=== PATIENT | female | born 1950 | race Asian ===

== ENCOUNTER 2016-08-02 10:25 | Inpatient (IN) | payer MEDICARE, OTHER ==
[~2016-08-02] VITALS: Ht 172.7 cm; Wt 74.1 kg
[~2016-08-02 10:25] MED LIST: APR50 PO; CALC667T2 PO; CEPH-443 PO; CHOL400T10 PO; CLON-379 PO; FOLI-49 PO; INSU100I14 SC; LEVEM SC; METO-429 PO
[2016-08-02] MEDS ORDERED: morphine 2 MG INJ IV STA (10:28)
[2016-08-02] MEDS ORDERED: SOD CHLORIDE 0.9% 1,000 ML IV STA (10:28)
[2016-08-02] MEDS ORDERED: ONDANSETRON 4 MG INJ IV STA (10:28)
--- NOTE | 2016-08-02 11:14 | RADRPT ---
PROCEDURE: XR Chest. CLINICAL INDICATION: Nausea. Abdominal pain. TECHNIQUE: Single frontal chest x-ray. COMPARISON: Chest x-ray dated 07/02/2016 FINDINGS: The lungs are clear. No focal opacification is seen. Subtle patchy density seen in the retrocardiac left lung base at the time of the previous chest x-ray is now resolved. The cardiomediastinal silho uette is unremarkable. The osseous structures are unremarkable. Dual-chamber left chest pacemaker is in good position without evidence for pneumothorax. IMPRESSION: 1. There is no acute cardiopulmonary process. 2. Stable dual-chamber left chest pacemaker without pneumothorax. RPTAT: HMJB .Amaury Melton MD, Date Time Electronically viewed and signed by .Amaury Melton MD, on 08/02/2016 11:14 .B/
[2016-08-02 11:44] LABS: EOSINOPHILS % 0.1 % (0.0-7.0); HEMATOCRIT 21.4 % (37.0-47.0); HEMOGLOBIN 7.1 g/dl (12.0-16.0); LYMPHOCYTES # 0.7 10^3/ul (0.8-2.9); LYMPHOCYTES % 8.4 % (15.0-51.0); MEAN CORPUSCULAR HGB CONC 33.1 g/dl (32.0-37.0); MEAN CORPUSCULAR VOLUME 93.6 fl (82.0-101.0); MONOCYTE # 0.4 10^3/ul (0.3-0.9); MONOCYTES % 4.6 % (0.0-11.0); NEUTROPHIL # 7.5 10^3/ul (1.6-7.5); NEUTROPHILS % 86.9 % (39.0-77.0); PLATELET COUNT 177 10^3/UL (140-440); RED BLOOD COUNT 2.29 10^6/ul (4.20-5.40); RED CELL DISTRIBUTION WIDTH 15.5 % (11.5-14.5); UNCORRECTED WBC 8.7 10^3/ul (4.8-10.8); WHITE BLOOD COUNT 8.7 10^3/ul (4.8-10.8)
[2016-08-02 11:49] LABS: CONDITION 1; LH ANALYZER COMMENTS 1
[2016-08-02 11:55] LABS: ALBUMIN 3.9 g/dl (3.3-4.9); POTASSIUM 4.4 mmol/L (3.5-5.1)
[2016-08-02 11:57] LABS: BILIRUBIN,INDIRECT 0.1 mg/dl (0-1.1); BILIRUBIN,TOTAL 0.1 mg/dl (0.2-1.3); CREATININE 5.21 mg/dl (0.44-1.00)
[2016-08-02 11:58] LABS: ALBUMIN/GLOBULIN RATIO 1.02; CALCIUM 8.9 mg/dl (8.4-10.2); TOTAL PROTEIN 7.7 g/dl (6.1-8.1)
[2016-08-02 11:59] LABS: INR 1.05; PROTIME 13.7 Sec (12.2-14.2); PT RATIO 1.1
[2016-08-02 12:00] LABS: PARTIAL THROMBOPLASTIN TIME 34.8 Sec (25.0-35.0)
[2016-08-02] MEDS ORDERED: PANTOPRAZOLE 40 MG INJ IV ONE (12:00)
[2016-08-02 12:09] LABS: TROPONIN-I 0.013 ng/ml (0.00-0.12)
--- NOTE | 2016-08-02 16:23 | ERA ---
ER Documentation Chief Complaint Date/Time DATE: 08/02/16 TIME: 16:04 Chief Complaint BROUGHT IN VIA EMS FROM DIALYSIS DUE TO NAUSEA AND VOMITING HPI This 66-year-old female came emergency room after dialysis for her nausea and vomiting. She denies any specific abdominal pain. States that the vomit has been back in color. Denies coffee grounds. Also states that she's been having black bowel movements. Denies any other history of a GI bleed. Denies chest pain shortness of breath fever chills. Does have lightheadedness and slight generalized weaknes. ROS All systems reviewed and are negative except as per history of present illness. Medications Home Meds Reported Medications Metoprolol Tartrate* (Lopressor*) 50 Mg Tab, 50 MG PO BID, #60 TAB 07/02/16 Insulin Detemir* (Levemir*) 100 U/Ml Vial, 18 UNIT SC HS, VIAL 10/24/14 Cholecalciferol* (Vitamin D*) 400 Unit Tablet, 400 UNIT PO DAILY, TAB 09/23/14 Insulin Lispro (Humalog) 100 U/Ml Insuln.pen, 5 UNIT SC WITH MEALS, EA 09/23/14 Folic Acid* (Folic Acid*) 1 Mg Tablet, 1 MG PO DAILY, TAB 05/19/14 Calcium Acetate* (Phoslo*) 667 Mg Tablet, 2001 MG PO TID, TAB 05/19/14 Clonidine Hcl* (Clonidine Hcl*) 0.1 Mg Tab, 0.1 MG PO TID, TAB 05/19/14 Hydralazine Hcl* (Hydralazine Hcl*) 50 Mg Tab, 75 MG PO TID, TAB 05/19/14 Discontinued Scripts Cephalexin* (Keflex*) 500 Mg Capsule, 500 MG PO TID, #21 CAP Prov:SALAZAR CALIX MD 07/06/16 Allergies Allergies: Coded Allergies: No Known Allergy (Unverified , 08/02/16) PMhx/Soc History of Surgery: Yes (Ovarian Cancer Tumor Removal Sep 2009,Right AV Fistula 2012, [id number] ) Anesthesia Reaction: No Hx Neurological Disorder: No Hx Respiratory Disorders: No Hx Cardiac Disorders: Yes (HTN) Hx Psychiatric Problems: No Hx Miscellaneous Medical Probl: Yes (DM ,RENAL FAILURE ) Hx Alcohol Use: No Hx Substance Use: No Hx Tobacco Use: No Smoking Status: Never smoker Physical Exam Vitals Vital Signs Date Time Temp Pulse Resp B/P Pulse Ox O2 Delivery O2 Flow Rate FiO2 08/02/16 15:30 112 18 118/68 100 Nasal Cannula 2.0 08/02/16 14:00 98.0 118 18 120/58 96 Room Air 08/02/16 13:00 122 18 110/59 99 Room Air 08/02/16 10:28 98.2 88 18 136/62 98 Physical Exam Const: [] Head: Atraumatic Eyes: Normal Conjunctiva ENT: Normal External Ears, Nose and Mouth. Neck: Full range of motion..~ No meningismus. Resp: Clear to auscultation bilaterally Cardio: Regular rate and rhythm, no murmurs Abd: Soft, non tender, non distended. Normal bowel sounds Skin: No petechiae or rashes Back: No midline or flank tenderness Ext: No cyanosis, or edema Neur: Awake and alert Psych: Normal Mood and Affect Result Diagram: 08/02/16 1100 08/02/16 1100 Results 24 hrs Laboratory Tests Test 08/02/16 11:00 Activated Partial Thromboplast Time 34.8Sec Alanine Aminotransferase (ALT/SGPT) 29IU/L Albumin 3.9g/dl Albumin/Globulin Ratio 1.02 Alkaline Phosphatase 78IU/L Anion Gap 23 Aspartate Amino Transf (AST/SGOT) 36IU/L Basophils # 0.010^3/ul Basophils % 0.0% Blood Morphology Comment Blood Urea Nitrogen 56mg/dl Calcium Level 8.9mg/dl Carbon Dioxide Level 24mmol/L Chloride Level 96mmol/L Creatinine 5.21mg/dl Direct Bilirubin 0.00mg/dl Eosinophils # 0.010^3/ul Eosinophils % 0.1% Globulin 3.80g/dl Glucose Level 122mg/dl Hematocrit 21.4% Hemoglobin 7.1g/dl INR International Normalized Ratio 1.05 Indirect Bilirubin 0.1mg/dl Lactic Acid Level 3.2mmol/L Lipase 355U/L Lymphocytes # 0.710^3/ul Lymphocytes % 8.4% Mean Corpuscular Hemoglobin 31.0pg Mean Corpuscular Hemoglobin Concent 33.1g/dl Mean Corpuscular Volume 93.6fl Mean Platelet Volume 9.0fl Monocytes # 0.410^3/ul Monocytes % 4.6% Neutrophils # 7.510^3/ul Neutrophils % 86.9% Nucleated Red Blood Cells # 0.010^3/ul Nucleated Red Blood Cells % 0.0/100WBC Platelet Count 50870^3/UL Potassium Level 4.4mmol/L Prothrombin Time 13.7Sec Prothrombin Time Ratio 1.1 Red Blood Count 2.2910^6/ul Red Cell Distribution Width 15.5% Sodium Level 139mmol/L Total Bilirubin 0.1mg/dl Total Protein 7.7g/dl Troponin I 0.013ng/ml White Blood Count 8.710^3/ul Current Medications Medications (Trade) Dose Ordered Sig/Amita Route PRN Reason Start Time Stop Time Status Last Admin Dose Admin Sodium Chloride (NS) 1,000 ml @ 1,000 mls/hr Q1H STAT IV 08/02/16 10:28 08/02/16 11:27 DC 08/02/16 11:07 Morphine Sulfate (morphine) 2 mg ONCE STAT IV 08/02/16 10:28 08/02/16 10:29 DC Ondansetron HCl (Zofran Inj) 4 mg ONCE STAT IV 08/02/16 10:28 08/02/16 10:29 DC 08/02/16 11:08 Pantoprazole (Protonix Iv) 80 mg ONCE ONCE IV 08/02/16 12:00 08/02/16 12:01 DC 08/02/16 12:35 Procedures/MDM 66-year-old acute GI bleed with symptomatic anemia.. Significant low hemoglobin she actually likely be lower with vitamin administration.. Patient be receiving transfusion. No significant abdominal pain or tenderness. She was given a liter of fluid as well as Zofran for nausea. She'll be admitted to be admitted for endoscopic evaluation and management. Spoke with Dr. Moya will be admitting and requested a consult with Dr. Miller. I spoke with Dr. Miller. EKG interpretation: Paced tachycardia rate of 116, no further evaluation possible secondary to paced rhythm cardiac monitor interpretation: Tachycardia without other arrhythmias Chest x-ray interpretation by myself: Pacemaker in place with no acute process, no infiltrate, no pulmonary edema, no widened mediastinum, no fractures Critical care time 34 minutes: This includes treatment of acute symptomatically anemia from acute GI bleed, administration of blood product, careful fluid administration, chart review, visits the patient's bedside to reassess hemodynamic status after blood products and fluid. Discussion with patient admitting doctor and director of revenue Departure Diagnosis: Primary Impression: Acute GI bleeding Additional Impression: Symptomatic anemia Condition: Serious CASPER COHEN DO Aug 02, 2016 16:19
--- NOTE | 2016-08-02 17:10 | QN ---
Documentation Comment [id number] JEFF RAMOS MD Aug 02, 2016 17:10
[2016-08-02] MEDS ORDERED: ACETAMINOPHEN 325 MG TAB PO PRN ×2 (17:30→18:30)
[2016-08-02] MEDS ORDERED: DOCUSATE SODIUM 100 MG CAP PO PRN (17:30)
[2016-08-02] MEDS ORDERED: ACETAMINOPHEN 650 MG SUPP PR PRN (17:30)
[2016-08-02] MEDS ORDERED: NACL 0.9% 3 ML SYG IV SCH (17:30)
[2016-08-02] MEDS ORDERED: ONDANSETRON 4 MG INJ IV PRN ×2 (17:30→18:30)
[2016-08-02 18:30] VITALS: TEMP 99.5
[2016-08-02 19:55] LABS: HEMATOCRIT 41.2 % (37.0-47.0); HEMOGLOBIN 13.9 g/dl (12.0-16.0)
[2016-08-02 20:30] VITALS: Ht 172.7 cm; Wt 74.1 kg
[2016-08-02 20:45] VITALS: BP 130/60; PULSE 117; RESP 19
[2016-08-02] MEDS: METOPROLOL 50 MG TAB PO SCH (21:00)
[2016-08-02] MEDS: DEXTROSE 5%-0.45% NACL 1,000 ML IV SCH (21:11)
[2016-08-02] MEDS ORDERED: ACETAMINOPHEN 500 MG TAB PO ONE (22:00)
--- NOTE | 2016-08-02 22:03 | HP ---
DATE OF ADMISSION: 08/02/2016 HISTORY OF PRESENT ILLNESS: She is a 66-year-old female with history of ESRD, diabetes mellitus, C AD, history of AV fistula placement, history of pacemaker placement, presented with vomiting coffee- ground and also having black stool for 1 day. Patient denies any nausea, no vomiting at this point. Also denies any abdominal pain. Hemoglobin 7.1, potassium 4.4, BUN 56, creatinine 5.21 and patien t is being admitted for further management. Blood pressure in the ER 128/58. PAST MEDICAL HISTORY: ESRD, hypertension, diabetes mellitus, anemia, history of pacemaker placement , a history of CHF. The patient's other history includes a history of sepsis, history of UTI, histo ry of dyslipidemia, history of bacteremia. ALLERGY HISTORY: NEGATIVE. FAMILY HISTORY: Negative. SOCIAL HISTORY: Negative. MEDICATION HISTORY: Patient is on at home patient is on: 1. PhosLo. 2. Vitamin D. 3. Clonidine. 4. Folic acid. 5. Hydralazine. 6. Insulin. 7. Humalog. 8. Metoprolol. REVIEW OF SYSTEMS HEENT: Unremarkable. RESPIRATORY: Unremarkable. CARDIOVASCULAR: Unremarkable. ABDOMEN: As mentioned above. EXTREMITIES: Unremarkable. PHYSICAL EXAMINATION: GENERAL: The patient is awake, alert, pale-looking female. VITAL SIGNS: As mentioned above. HEAD: Atraumatic, normocephalic. Pupils equal, reactive to light. NECK: Supple. No JVD. LUNGS: Clear. CARDIOVASCULAR: S1, S2 are normal. ABDOMEN: Soft, nontender. Bowel sounds present. No palpable mass or hepatosplenomegaly. No guard ing, rebound tenderness. EXTREMITIES: There is no cyanosis, clubbing, or edema. CENTRAL NERVOUS SYSTEM: The patient is awake, alert with no focal deficit. LABORATORY DATA: As mentioned above. Pacemaker in left chest noted. IMPRESSION: 1. Patient has gastrointestinal bleed. 2. End-stage renal disease, hypertension, diabetes mellitus, anemia, history of pacemaker placement . 3. History of dyslipidemia. PLAN: Keep her n.p.o., gentle IV fluids, Protonix, blood transfusion. Patient is currently getting it. The patient will also have a CBC, BMP checked in the morning. Dr. Miller has been of called t o see this patient in consultation. Dictated By: JEFF RAMOS MD BS/NTS Conf#: [id number] [facility]#: [id number]
[2016-08-03] MEDS ORDERED: ACETAMINOPHEN 325 MG TAB PO PRN (01:00)
[2016-08-03] MEDS: PANTOPRAZOLE 40 MG INJ IV SCH (05:08)
[2016-08-03] MEDS: CALCIUM ACETATE 667 MG CAP PO SCH ×3 (07:35→16:50)
[2016-08-03 08:02] LABS: EOSINOPHILS # 0.1 10^3/ul (0.0-0.5); EOSINOPHILS % 0.4 % (0.0-7.0); HEMATOCRIT 25.3 % (37.0-47.0); HEMOGLOBIN 8.6 g/dl (12.0-16.0); LYMPHOCYTES % 5.1 % (15.0-51.0); MEAN CORPUSCULAR HEMOGLOBIN 31.4 pg (29.0-33.0); MEAN CORPUSCULAR HGB CONC 34.1 g/dl (32.0-37.0); MEAN CORPUSCULAR VOLUME 92.2 fl (82.0-101.0); MEAN PLATELET VOLUME 8.2 fl (7.4-10.4); MONOCYTE # 1.8 10^3/ul (0.3-0.9); MONOCYTES % 9.1 % (0.0-11.0); NEUTROPHIL # 16.7 10^3/ul (1.6-7.5); NEUTROPHILS % 85.4 % (39.0-77.0); PLATELET COUNT 175 10^3/UL (140-440); RED BLOOD COUNT 2.74 10^6/ul (4.20-5.40); RED CELL DISTRIBUTION WIDTH 15.9 % (11.5-14.5); UNCORRECTED WBC 19.5 10^3/ul (4.8-10.8); WHITE BLOOD COUNT 19.5 10^3/ul (4.8-10.8)
[2016-08-03 08:04] LABS: CONDITION 1; LH ANALYZER COMMENTS 1
[2016-08-03 08:08] LABS: ALBUMIN 3.3 g/dl (3.3-4.9)
[2016-08-03 08:09] LABS: POTASSIUM 4.8 mmol/L (3.5-5.1)
[2016-08-03 08:11] LABS: ALBUMIN/GLOBULIN RATIO 0.97; BILIRUBIN,INDIRECT 0.5 mg/dl (0-1.1); BILIRUBIN,TOTAL 0.5 mg/dl (0.2-1.3); CREATININE 7.19 mg/dl (0.44-1.00); TOTAL PROTEIN 6.7 g/dl (6.1-8.1)
[2016-08-03 08:12] LABS: CALCIUM 8.4 mg/dl (8.4-10.2)
[2016-08-03 09:00] VITALS: BP 130/65; PULSE 86; RESP 16
[2016-08-03] MEDS: CHOLECALCIFEROL 400 UNITS TAB PO SCH (09:00)
[2016-08-03] MEDS: METOPROLOL 50 MG TAB PO SCH ×2 (09:00→20:57)
[2016-08-03] MEDS: FOLIC ACID 1 MG TAB PO SCH (09:00)
[2016-08-03 11:15] LABS: ADD UMIC YES; URINE BILIRUBIN (Dip) NEGATIVE (NEGATIVE); URINE BLOOD (Dip) 1+ (NEGATIVE); URINE COLOR LT. YELLOW (YELLOW); URINE GLUCOSE (Dip) NEGATIVE (NEGATIVE); URINE KETONES (Dip) NEGATIVE (NEGATIVE); URINE LEUKOCYTE ESTERASE (Dip) TRACE (NEGATIVE); URINE NITRITE (Dip) NEGATIVE (NEGATIVE); URINE TOTAL PROTEIN (Dip) 1+ (NEGATIVE); URINE UROBILINOGEN (Dip) 0.2 E.U./dL (0.1-1.0)
[2016-08-03 11:33] LABS: SQUAMOUS EPITHELIAL CELL,UR FEW
[2016-08-03] MEDS ORDERED: GLUCOSE GEL 15 GRAM TUBE PO PRN ×2 (13:00)
[2016-08-03] MEDS ORDERED: DEXTROSE 50% 50 ML SYRINGE IV PRN ×2 (13:00)
[2016-08-03] MEDS ORDERED: GLUCAGON 1 MG INJ IM PRN (13:00)
[2016-08-03] MEDS ORDERED: GLUCOSE GEL 15 GRAM TUBE BUCCAL PRN (13:00)
[2016-08-03] MEDS: INSULIN ASPART [NOVOLOG] 3 ML PEN SC SCH ×2 (17:08→20:56)
--- NOTE | 2016-08-03 17:36 | CONS ---
DATE OF ADMISSION: 08/02/2016 DATE OF CONSULTATION: GASTROENTEROLOGY CONSULTATION REFERRING PHYSICIAN: Dr. Alireza Moya Dear Alireza, Thank you for asking me to see your patient who is a pleasant 66-year-old female with a history of d iabetes mellitus, end-stage renal disease, and coronary artery disease status post pacemaker placeme nt who had a coffee-ground colored emesis and melenic stool. Her hematocrit had dropped down signif icantly requiring blood transfusion. The patient has no abdominal pain, no weight loss, no chest pa in, shortness of breath, not on any ulcerogenic medication. PAST MEDICAL HISTORY: As described besides the history of dyslipidemia and bacteremia in the past. ALLERGIES: Negative. FAMILY HISTORY: Negative. SOCIAL HISTORY: Negative. MEDICATIONS: All reviewed. REVIEW OF SYSTEMS: Negative. PHYSICAL EXAMINATION: GENERAL: Well-built, nourished, not in distress. VITAL SIGNS: Stable. HEENT: Unremarkable. NECK: Supple, no thyromegaly, no lymphadenopathy. CARDIOVASCULAR: No murmur, gallop, or click. LUNGS: Clear. ABDOMEN: Benign. EXTREMITIES: No edema. CENTRAL NERVOUS SYSTEM: Grossly within normal limits. LABORATORY DATA: WBC 8.7 which jumped to 19.5, hematocrit 21, after transfusion is 25. BUN and cre atine are elevated. LFTs all within normal limits. Coagulation also is normal. Urine showed leuko cyte esterase trace, few protein, 1+. IMPRESSION: 1. Upper gastrointestinal bleeding. 2. Anemia. 3. Leukocytosis. 4. Diabetes mellitus. 5. End-stage renal disease. 6. Hypertension. 7. Status post pacemaker insertion. 8. Coronary artery disease. PLAN: Continue present care. We will proceed with EGD in a.m. Discussed with the patient and the who understood and agreed for the procedure. In the interim, we will monitor H and H closel y. Dictated By: FLETCHER REYNOSO/VAL Conf#: [id number] DID#: [id number]
[2016-08-03 20:00] VITALS: BP 150/66; PULSE 84; RESP 21
[2016-08-03] MEDS ORDERED: hydrALAzine 20 MG INJ IV PRN (21:00)
[2016-08-04] VITALS (19 sets, daily range): BP systolic 145–177; BP diastolic 54–89; PULSE 68–119; RESP 15–18
[2016-08-04] MEDS: DEXTROSE 5%-0.45% NACL 1,000 ML IV SCH ×2 (00:30→21:00)
[2016-08-04] MEDS: ACCUCHECK XX SCH (02:00)
[2016-08-04] MEDS: PANTOPRAZOLE 40 MG INJ IV SCH (05:37)
[2016-08-04 05:40] LABS: BASOPHILS % 0.1 % (0.0-2.0); EOSINOPHILS # 0.3 10^3/ul (0.0-0.5); EOSINOPHILS % 2.1 % (0.0-7.0); HEMATOCRIT 25.9 % (37.0-47.0); HEMOGLOBIN 8.8 g/dl (12.0-16.0); LYMPHOCYTES # 0.9 10^3/ul (0.8-2.9); LYMPHOCYTES % 6.9 % (15.0-51.0); MEAN CORPUSCULAR HEMOGLOBIN 31.4 pg (29.0-33.0); MEAN CORPUSCULAR HGB CONC 34.1 g/dl (32.0-37.0); MEAN CORPUSCULAR VOLUME 92.1 fl (82.0-101.0); MEAN PLATELET VOLUME 8.3 fl (7.4-10.4); MONOCYTE # 1.1 10^3/ul (0.3-0.9); MONOCYTES % 8.4 % (0.0-11.0); NEUTROPHIL # 10.8 10^3/ul (1.6-7.5); NEUTROPHILS % 82.5 % (39.0-77.0); PLATELET COUNT 159 10^3/UL (140-440); RED BLOOD COUNT 2.81 10^6/ul (4.20-5.40); RED CELL DISTRIBUTION WIDTH 16.1 % (11.5-14.5); UNCORRECTED WBC 13.1 10^3/ul (4.8-10.8); WHITE BLOOD COUNT 13.1 10^3/ul (4.8-10.8)
[2016-08-04 05:42] LABS: POTASSIUM 4.9 mmol/L (3.5-5.1)
[2016-08-04 05:45] LABS: CREATININE 9.13 mg/dl (0.44-1.00)
[2016-08-04 05:46] LABS: CALCIUM 8.4 mg/dl (8.4-10.2)
[2016-08-04 05:59] LABS: CONDITION 1; LH ANALYZER COMMENTS 1
[2016-08-04] MEDS: CALCIUM ACETATE 667 MG CAP PO SCH ×3 (07:35→15:27)
[2016-08-04] MEDS: INSULIN ASPART [NOVOLOG] 3 ML PEN SC SCH ×4 (08:00→21:00)
[2016-08-04] MEDS: CHOLECALCIFEROL 400 UNITS TAB PO SCH (09:00)
[2016-08-04] MEDS: METOPROLOL 50 MG TAB PO SCH ×2 (09:00→21:58)
[2016-08-04] MEDS: FOLIC ACID 1 MG TAB PO SCH (09:00)
[2016-08-04] MEDS ORDERED: FENTAnyl 50 MCG/ML VIAL ONE (16:57)
[2016-08-04] MEDS ORDERED: PROPOFOL 20 ML ONE (16:57)
[2016-08-04] MEDS ORDERED: ONDANSETRON 4 MG INJ IV PRN (17:30)
[2016-08-04] MEDS ORDERED: LABETALOL HCL 20MG INJ IV PRN (17:30)
[2016-08-04] MEDS ORDERED: hydrALAzine 20 MG INJ IV PRN (17:30)
--- NOTE | 2016-08-04 20:17 | GILP ---
DATE OF PROCEDURE: PROCEDURE: EGD with biopsy. INDICATION: A 66-year-old female undergoing this procedure for GI bleeding manifested in the form o f coffee-ground colored emesis. INFORMED CONSENT: The risk of the procedure, related and unrelated complications, anesthetic risks, alternatives discussed. Informed consent was obtained. DESCRIPTION OF PROCEDURE: The patient was brought to the GI lab, sedated by the anesthesiologist. After optimum sedation, scope was passed with much ease into esophagus, which was grossly within nor mal limits. Z line was at 40 cm. The patient had a 1 to 2 cm hiatal hernia. Stomach mucosa reveal ed 2 well-defined antral ulcers, both were benign looking, 1 on exactly opposite to each other. The crater size was 2 cm and 3 cm. Pyloric channel was completely ulcerated circumferentially. The du odenum first and second part was within normal limits. Two to 3 biopsies obtained from the stomach to rule out H. pylori infection. Retroversion done. No growth identified. No altered blood was se en. Scope was straightened out and removed with good patient tolerance. IMPRESSION: 1. Normal esophagus. 2. Z line at 40 cm. 3. Two antral ulcers, both were benign looking, with a crater size of 2 cm and 3 cm. 4. Pyloric channel totally ulcerated circumferentially. 5. Normal duodenum and ampulla. 6. No varicose vein identified. 7. No altered blood or fresh blood seen. PLAN: Continue PPI at least for 3 months. The patient needs to be rescoped up to 2 months to make sure the ulcer is completely healed. Will review the histopathology. If bacteria is positive, we t reat with antibiotic. Refrain from all NSAIDs. Dictated By: FLETCHER JOHNS MD PJ/NTS Conf#: [id number] DID#: [id number] CC: JEFF RAMOS MD; FLETCHER JOHNS MD;*End*
[2016-08-05] MEDS: ACCUCHECK XX SCH (02:00)
[2016-08-05] MEDS: PANTOPRAZOLE 40 MG INJ IV SCH (05:23)
[2016-08-05 05:58] LABS: BASOPHILS % 0.3 % (0.0-2.0); EOSINOPHILS # 0.3 10^3/ul (0.0-0.5); EOSINOPHILS % 3.8 % (0.0-7.0); HEMOGLOBIN 8.9 g/dl (12.0-16.0); LYMPHOCYTES % 10.7 % (15.0-51.0); MEAN CORPUSCULAR HEMOGLOBIN 30.8 pg (29.0-33.0); MEAN CORPUSCULAR VOLUME 93.3 fl (82.0-101.0); MEAN PLATELET VOLUME 8.4 fl (7.4-10.4); MONOCYTE # 1.1 10^3/ul (0.3-0.9); MONOCYTES % 12.5 % (0.0-11.0); NEUTROPHIL # 6.7 10^3/ul (1.6-7.5); NEUTROPHILS % 72.7 % (39.0-77.0); PLATELET COUNT 176 10^3/UL (140-440); RED CELL DISTRIBUTION WIDTH 15.5 % (11.5-14.5); UNCORRECTED WBC 9.2 10^3/ul (4.8-10.8); WHITE BLOOD COUNT 9.2 10^3/ul (4.8-10.8)
[2016-08-05 06:03] LABS: ALBUMIN 3.4 g/dl (3.3-4.9)
[2016-08-05 06:04] LABS: POTASSIUM 4.2 mmol/L (3.5-5.1)
[2016-08-05 06:06] LABS: ALBUMIN/GLOBULIN RATIO 0.94; BILIRUBIN,INDIRECT 0.4 mg/dl (0-1.1); BILIRUBIN,TOTAL 0.4 mg/dl (0.2-1.3); CREATININE 6.47 mg/dl (0.44-1.00)
[2016-08-05 06:07] LABS: CALCIUM 8.1 mg/dl (8.4-10.2)
[2016-08-05 06:19] LABS: CONDITION 1; LH ANALYZER COMMENTS 1
[2016-08-05 08:00] VITALS: BP 144/67; PULSE 65; RESP 18
[2016-08-05] MEDS: INSULIN ASPART [NOVOLOG] 3 ML PEN SC SCH ×4 (08:00→20:59)
[2016-08-05] MEDS: CALCIUM ACETATE 667 MG CAP PO SCH ×3 (08:10→17:21)
[2016-08-05] MEDS: CHOLECALCIFEROL 400 UNITS TAB PO SCH (08:11)
[2016-08-05] MEDS: FOLIC ACID 1 MG TAB PO SCH (08:11)
[2016-08-05] MEDS: METOPROLOL 50 MG TAB PO SCH ×2 (08:12→20:58)
--- NOTE | 2016-08-05 12:41 | CONS ---
Date/Time of Note Date/Time of Note DATE: 08/05/16 TIME: 12:39 Assessment/Plan Assessment/Plan Additional Assessment/Plan IMPRESSION: 1. Upper gastrointestinal bleeding. 2. Anemia. 3. Leukocytosis. 4. Diabetes mellitus. 5. End-stage renal disease. 6. Hypertension. 7. Status post pacemaker insertion. 8. Coronary artery disease. Plan PPI biopsy negative for H.Pylori Consultation Date/Type/Reason Admit Date/Time Aug 02, 2016 at 18:09 Initial Consult Date 24 HR Interval Summary Constitutional: improved, no complaints Exam/Review of Systems Vital Signs Vitals Vital Signs Date Time Temp Pulse Resp B/P Pulse Ox O2 Delivery O2 Flow Rate FiO2 08/05/16 08:30 Nasal Cannula 2.0 08/05/16 08:00 98.2 65 18 144/67 97 Intake and Output 08/04/16 08/04/16 08/05/16 15:00 23:00 07:00 Intake Total 500 ml 880 ml Output Total 4500 ml Balance -4000 ml 880 ml Exam Constitutional: alert, oriented, well developed Psych: nl mood/affect, no complaints Head: atraumatic, normocephalic Eyes: EOMI, PERRL, nl conjunctiva, nl lids, nl sclera ENMT: nl external ears & nose, nl lips & teeth, nl nasal mucosa & septum Neck: non-tender, supple Respiratory: clear to auscultation, normal air movement Cardiovascular: nl pulses, regular rate and rhythm Gastrointestinal: nl liver, spleen, non-tender, soft Musculoskeletal: nl extremities to inspection, nl gait and stance Extremities: normal pulses Neurological: [employer] II-XII intact, nl mental status, nl speech, nl strength Skin: nl turgor, No rash or lesions Lymph: nl lymph nodes Results Result Diagram: 08/05/16 0435 08/05/16 0435 Results 24 hrs Laboratory Tests Test 08/04/16 18:20 08/04/16 20:23 08/05/16 04:35 08/05/16 07:37 Bedside Glucose 89 161 118 Alanine Aminotransferase (ALT/SGPT) 30 Albumin 3.4 Albumin/Globulin Ratio 0.94 Alkaline Phosphatase 59 Anion Gap 19 H Aspartate Amino Transf (AST/SGOT) 42 Basophils # 0.0 Basophils % 0.3 Blood Morphology Comment Blood Urea Nitrogen 40 #H Calcium Level 8.1 L Carbon Dioxide Level 31 Chloride Level 97 Creatinine 6.47 #H Direct Bilirubin 0.00 Eosinophils # 0.3 Eosinophils % 3.8 Globulin 3.60 H Glucose Level 109 Hematocrit 27.0 L Hemoglobin 8.9 L Indirect Bilirubin 0.4 Lymphocytes # 1.0 Lymphocytes % 10.7 L Mean Corpuscular Hemoglobin 30.8 Mean Corpuscular Hemoglobin Concent 33.0 Mean Corpuscular Volume 93.3 Mean Platelet Volume 8.4 Monocytes # 1.1 H Monocytes % 12.5 H Neutrophils # 6.7 Neutrophils % 72.7 Nucleated Red Blood Cells # 0.0 Nucleated Red Blood Cells % 0.0 Platelet Count 176 Potassium Level 4.2 Red Blood Count 2.90 L Red Cell Distribution Width 15.5 H Sodium Level 143 Total Bilirubin 0.4 Total Protein 7.0 White Blood Count 9.2 # Test 08/05/16 11:36 Bedside Glucose 226 H Medications Medications Current Medications Cholecalciferol (Vitamin D) 400 units DAILY PO Last administered on 08/05/16 08:11; Admin Dose 400 UNITS; Start 08/03/16 at 09:00 Clonidine (Catapres) 0.1 mg TID PO Last administered on 08/05/16at 08:11; Admin Dose 0.1 MG; Start 08/02/16 at 21:00 Folic Acid (Folic Acid) 1 mg DAILY PO Last administered on 08/05/16 08:11; Admin Dose 1 MG; Start 08/03/16 at 09:00 Hydralazine HCl (Apresoline) 75 mg TID PO Last administered on 08/05/16 08:12 ; Admin Dose 75 MG; Start 08/02/16 at 21:00 Metoprolol Tartrate 50 mg 50 mg BID PO Last administered on 08/05/16at 08:12; Admin Dose 50 MG; Start 08/02/16 at 21:00 Dextrose/Sodium Chloride (D5-1/2ns) 1,000 ml @ 40 mls/hr Q24H IV Last administered on 08/04/16at 00:30; Admin Dose 40 MLS/HR; Start 08/02/16 at 21:00 Ondansetron HCl (Zofran Inj) 4 mg Q6H PRN IV NAUSEA AND/OR VOMITING; Start at 17:30 Acetaminophen (Tylenol Supp) 650 mg Q6H PRN [place] PAIN LEVEL 1-3 OR FEVER; Start 08/02/16 at 17:30 Docusate Sodium (Colace) 100 mg Q12H PRN PO CONSTIPATION; Start 08/02/16 at 17 :30 Pantoprazole (Protonix Iv) 40 mg DAILY@06 IV Last administered on 08/05/16at 05 :23; Admin Dose 40 MG; Start 08/03/16 at 06:00 Acetaminophen (Tylenol Tab) 650 mg Q4 PRN PO PAIN LEVEL 1-3 OR FEVER; Start at 01:00 Diagnostic Test (Pha) (Accucheck) Check 2 am Accucheck only if... 02 XX ; Start 08/04/16 at 02:00 Miscellaneous Information 1 ea NOTE XX ; Start 08/03/16 at 13:00 Glucose (Glutose) 15 gm Q15M PRN PO DECREASED GLUCOSE; Start 08/03/16 at 13:00 Glucose (Glutose) 22.5 gm Q15M PRN PO DECREASED GLUCOSE; Start 08/03/16 at 13: 00 Dextrose (D50w Syringe) 25 ml Q15M PRN IV DECREASED GLUCOSE; Start 08/03/16 at 13:00 Dextrose (D50w Syringe) 50 ml Q15M PRN IV DECREASED GLUCOSE; Start 08/03/16 at 13:00 Glucagon (Glucagen) 1 mg Q15M PRN IM DECREASED GLUCOSE; Start 08/03/16 at 13: 00 Glucose (Glutose) 15 gm Q15M PRN BUCCAL DECREASED GLUCOSE; Start 08/03/16 at 13:00 Hydralazine HCl (Apresoline) 10 mg Q6H PRN IV SBP > 165; Start 08/03/16 at 21: 00 FLETCHER JOHNS MD Aug 05, 2016 12:41
[2016-08-05] MEDS: DEXTROSE 5%-0.45% NACL 1,000 ML IV SCH (13:56)
--- NOTE | 2016-08-05 18:16 | PN ---
Date/Time of Note Date/Time of Note DATE: 08/05/16 TIME: 18:14 Assessment/Plan VTE Prophylaxis VTE Prophylaxis Intervention: other Lines/Catheters IV Catheter Type (from Nrs): Peripheral IV Urinary Cath still in place: No Assessment/Plan Chief Complaint/Hosp Course ESRD GI BLEED ANEMIA ASHD PUD PLAN PPI HD Problems: Subjective 24 Hr Interval Summary Cardiovascular: no complaints Gastrointestinal: no complaints Exam/Review of Systems Vital Signs Vitals Vital Signs Date Time Temp Pulse Resp B/P Pulse Ox O2 Delivery O2 Flow Rate FiO2 08/05/16 08:30 Nasal Cannula 2.0 08/05/16 08:00 98.2 65 18 144/67 97 Intake and Output 08/04/16 08/04/16 08/05/16 15:00 23:00 07:00 Intake Total 500 ml 880 ml Output Total 4500 ml Balance -4000 ml 880 ml Exam Respiratory: clear to auscultation Cardiovascular: regular rate and rhythm Gastrointestinal: soft Musculoskeletal: nl extremities to inspection Extremities: normal pulses Results Result Diagram: 08/05/16 0435 08/05/16 0435 Results 24 hrs Laboratory Tests Test 08/04/16 18:20 08/04/16 20:23 08/05/16 04:35 08/05/16 07:37 Bedside Glucose 89 161 118 Alanine Aminotransferase (ALT/SGPT) 30 Albumin 3.4 Albumin/Globulin Ratio 0.94 Alkaline Phosphatase 59 Anion Gap 19 H Aspartate Amino Transf (AST/SGOT) 42 Basophils # 0.0 Basophils % 0.3 Blood Morphology Comment Blood Urea Nitrogen 40 #H Calcium Level 8.1 L Carbon Dioxide Level 31 Chloride Level 97 Creatinine 6.47 #H Direct Bilirubin 0.00 Eosinophils # 0.3 Eosinophils % 3.8 Globulin 3.60 H Glucose Level 109 Hematocrit 27.0 L Hemoglobin 8.9 L Indirect Bilirubin 0.4 Lymphocytes # 1.0 Lymphocytes % 10.7 L Mean Corpuscular Hemoglobin 30.8 Mean Corpuscular Hemoglobin Concent 33.0 Mean Corpuscular Volume 93.3 Mean Platelet Volume 8.4 Monocytes # 1.1 H Monocytes % 12.5 H Neutrophils # 6.7 Neutrophils % 72.7 Nucleated Red Blood Cells # 0.0 Nucleated Red Blood Cells % 0.0 Platelet Count 176 Potassium Level 4.2 Red Blood Count 2.90 L Red Cell Distribution Width 15.5 H Sodium Level 143 Total Bilirubin 0.4 Total Protein 7.0 White Blood Count 9.2 # Test 08/05/16 11:36 08/05/16 17:04 Bedside Glucose 226 H 109 Medications Medications Current Medications Cholecalciferol (Vitamin D) 400 units DAILY PO Last administered on 08/05/16at 08:11; Admin Dose 400 UNITS; Start 08/03/16 at 09:00 Clonidine (Catapres) 0.1 mg TID PO Last administered on 08/05/16at 13:54; Admin Dose 0.1 MG; Start 08/02/16 at 21:00 Folic Acid (Folic Acid) 1 mg DAILY PO Last administered on 08/05/16at 08:11; Admin Dose 1 MG; Start 08/03/16 at 09:00 Hydralazine HCl (Apresoline) 75 mg TID PO Last administered on 08/05/16at 13:54 ; Admin Dose 75 MG; Start 08/02/16 at 21:00 Metoprolol Tartrate (Lopressor) 50 mg BID PO Last administered on 08/05/16at 08 :12; Admin Dose 50 MG; Start 08/02/16 at 21:00 Ondansetron HCl (Zofran Inj) 4 mg Q6H PRN IV NAUSEA AND/OR VOMITING; Start at 17:30 Acetaminophen (Tylenol Supp) 650 mg Q6H PRN [place] PAIN LEVEL 1-3 OR FEVER; Start 08/02/16 at 17:30 Docusate Sodium (Colace) 100 mg Q12H PRN PO CONSTIPATION; Start 08/02/16 at 17 :30 Pantoprazole (Protonix Iv) 40 mg DAILY@06 IV Last administered on 08/05/16at 05 :23; Admin Dose 40 MG; Start 08/03/16 at 06:00 Acetaminophen (Tylenol Tab) 650 mg Q4 PRN PO PAIN LEVEL 1-3 OR FEVER; Start at 01:00 Diagnostic Test (Pha) (Accucheck) Check 2 am Accucheck only if... 02 XX ; Start 08/04/16 at 02:00 Miscellaneous Information 1 ea NOTE XX ; Start 08/03/16 at 13:00 Glucose (Glutose) 15 gm Q15M PRN PO DECREASED GLUCOSE; Start 08/03/16 at 13:00 Glucose (Glutose) 22.5 gm Q15M PRN PO DECREASED GLUCOSE; Start 08/03/16 at 13: 00 Dextrose (D50w Syringe) 25 ml Q15M PRN IV DECREASED GLUCOSE; Start 08/03/16 at 13:00 Dextrose (D50w Syringe) 50 ml Q15M PRN IV DECREASED GLUCOSE; Start 08/03/16 at 13:00 Glucagon (Glucagen) 1 mg Q15M PRN IM DECREASED GLUCOSE; Start 08/03/16 at 13: 00 Glucose (Glutose) 15 gm Q15M PRN BUCCAL DECREASED GLUCOSE; Start 08/03/16 at 13:00 Hydralazine HCl (Apresoline) 10 mg Q6H PRN IV SBP > 165; Start 08/03/16 at 21: 00 JEFF RAMOS MD Aug 05, 2016 18:15
[2016-08-05 20:10] VITALS: BP 124/60; PULSE 62; RESP 18
[2016-08-06] VITALS (13 sets, daily range): BP systolic 136–173; BP diastolic 63–84; PULSE 63–80; RESP 18
[2016-08-06] MEDS: ACCUCHECK XX SCH (02:00)
[2016-08-06] MEDS: PANTOPRAZOLE 40 MG INJ IV SCH (05:23)
[2016-08-06 05:28] LABS: BASOPHILS % 0.1 % (0.0-2.0); EOSINOPHILS # 0.6 10^3/ul (0.0-0.5); EOSINOPHILS % 6.8 % (0.0-7.0); HEMATOCRIT 24.7 % (37.0-47.0); HEMOGLOBIN 8.2 g/dl (12.0-16.0); LYMPHOCYTES % 12.7 % (15.0-51.0); MEAN CORPUSCULAR HGB CONC 33.2 g/dl (32.0-37.0); MEAN CORPUSCULAR VOLUME 93.5 fl (82.0-101.0); MEAN PLATELET VOLUME 8.3 fl (7.4-10.4); MONOCYTE # 1.1 10^3/ul (0.3-0.9); MONOCYTES % 13.6 % (0.0-11.0); NEUTROPHIL # 5.5 10^3/ul (1.6-7.5); NEUTROPHILS % 66.8 % (39.0-77.0); PLATELET COUNT 194 10^3/UL (140-440); RED BLOOD COUNT 2.64 10^6/ul (4.20-5.40); RED CELL DISTRIBUTION WIDTH 15.6 % (11.5-14.5); UNCORRECTED WBC 8.3 10^3/ul (4.8-10.8); WHITE BLOOD COUNT 8.3 10^3/ul (4.8-10.8)
[2016-08-06 05:55] LABS: CONDITION 1; LH ANALYZER COMMENTS 1
[2016-08-06 06:19] LABS: CREATININE 8.4 mg/dl (0.44-1.00)
[2016-08-06 06:20] LABS: CALCIUM 8.3 mg/dl (8.4-10.2)
[2016-08-06 06:34] LABS: POTASSIUM 4.9 mmol/L (3.5-5.1)
[2016-08-06] MEDS: CALCIUM ACETATE 667 MG CAP PO SCH ×3 (07:58→17:04)
[2016-08-06] MEDS: INSULIN ASPART [NOVOLOG] 3 ML PEN SC SCH ×4 (08:00→22:00)
[2016-08-06] MEDS: CHOLECALCIFEROL 400 UNITS TAB PO SCH (08:29)
[2016-08-06] MEDS: FOLIC ACID 1 MG TAB PO SCH (08:29)
[2016-08-06] MEDS: METOPROLOL 50 MG TAB PO SCH (09:00)
--- NOTE | 2016-08-06 16:10 | PN ---
Date/Time of Note Date/Time of Note DATE: 08/06/16 TIME: 16:10 Assessment/Plan VTE Prophylaxis VTE Prophylaxis Intervention: other Lines/Catheters IV C[facility]ter Type [facility]from [facility] Saline Lock Urinary Cath still in place: No Assessment/Plan Chief Complaint/Hosp Course ESRD GI BLEED ANEMIA ASHD PUD PLAN PPI HD prbc Problems: Subjective 24 Hr Interval Summary ENT: no complaints Respiratory: no complaints Cardiovascular: no complaints Exam/Review of Systems Vital Signs Vitals Vital Signs Date Time Temp Pulse Resp B/P Pulse Ox O2 Delivery O2 Flow Rate FiO2 08/06/16 08:15 Nasal Cannula 2.0 08/06/16 08:00 98.5 67 18 136/63 94 Intake and Output 08/05/16 08/05/16 08/06/16 15:00 23:00 07:00 Intake Total 180 ml 1540 ml 350 ml Balance 180 ml 1540 ml 350 ml Exam Neck: supple Respiratory: clear to auscultation Cardiovascular: regular rate and rhythm Gastrointestinal: soft Musculoskeletal: nl extremities to inspection Results Result Diagram: 08/06/16 0415 08/06/16 0415 Results 24 hrs Laboratory Tests Test 08/05/16 17:04 08/05/16 20:57 08/06/16 04:15 08/06/16 07:32 Bedside Glucose 109 133 116 Anion Gap 19 H Basophils # 0.0 Basophils % 0.1 Blood Morphology Comment Blood Urea Nitrogen 59 H Calcium Level 8.3 L Carbon Dioxide Level 27 Chloride Level 98 Creatinine 8.40 H Eosinophils # 0.6 H Eosinophils % 6.8 Glucose Level 126 Hematocrit 24.7 L Hemoglobin 8.2 L Lymphocytes # 1.0 Lymphocytes % 12.7 L Mean Corpuscular Hemoglobin 31.0 Mean Corpuscular Hemoglobin Concent 33.2 Mean Corpuscular Volume 93.5 Mean Platelet Volume 8.3 Monocytes # 1.1 H Monocytes % 13.6 H Neutrophils # 5.5 Neutrophils % 66.8 Nucleated Red Blood Cells # 0.0 Nucleated Red Blood Cells % 0.0 Platelet Count 194 Potassium Level 4.9 Red Blood Count 2.64 L Red Cell Distribution Width 15.6 H Sodium Level 139 White Blood Count 8.3 Test 08/06/16 11:50 Bedside Glucose 115 Medications Medications Current Medications Cholecalciferol (Vitamin D) 400 units DAILY PO Last administered on 08/06/16at 08:29; Admin Dose 400 UNITS; Start 08/03/16 at 09:00 Clonidine (Catapres) 0.1 mg TID PO Last administered on 08/05/16at 20:59; Admin Dose 0.1 MG; Start 08/02/16 at 21:00 Folic Acid (Folic Acid) 1 mg DAILY PO Last administered on 08/06/16at 08:29; Admin Dose 1 MG; Start 08/03/16 at 09:00 Hydralazine HCl (Apresoline) 75 mg TID PO Last administered on 08/05/16at 20:58 ; Admin Dose 75 MG; Start 08/02/16 at 21:00 Metoprolol Tartrate (Lopressor) 50 mg BID PO Last administered on 08/05/16at 20 :58; Admin Dose 50 MG; Start 08/02/16 at 21:00 Ondansetron HCl (Zofran Inj) 4 mg Q6H PRN IV NAUSEA AND/OR VOMITING; Start at 17:30 Acetaminophen (Tylenol Supp) 650 mg Q6H PRN AL PAIN LEVEL 1-3 OR FEVER; Start 08/02/16 at 17:30 Docusate Sodium (Colace) 100 mg Q12H PRN PO CONSTIPATION; Start 08/02/16 at 17 :30 Pantoprazole (Protonix Iv) 40 mg DAILY@06 IV Last administered on 08/06/16at 05 :23; Admin Dose 40 MG; Start 08/03/16 at 06:00 Acetaminophen (Tylenol Tab) 650 mg Q4 PRN PO PAIN LEVEL 1-3 OR FEVER; Start at 01:00 Diagnostic Test (Pha) (Accucheck) Check 2 am Accucheck only if... 02 XX ; Start 08/04/16 at 02:00 Miscellaneous Information 1 ea NOTE XX ; Start 08/03/16 at 13:00 Glucose (Glutose) 15 gm Q15M PRN PO DECREASED GLUCOSE; Start 08/03/16 at 13:00 Glucose (Glutose) 22.5 gm Q15M PRN PO DECREASED GLUCOSE; Start 08/03/16 at 13: 00 Dextrose (D50w Syringe) 25 ml Q15M PRN IV DECREASED GLUCOSE; Start 08/03/16 at 13:00 Dextrose (D50w Syringe) 50 ml Q15M PRN IV DECREASED GLUCOSE; Start 08/03/16 at 13:00 Glucagon (Glucagen) 1 mg Q15M PRN IM DECREASED GLUCOSE; Start 08/03/16 at 13: 00 Glucose (Glutose) 15 gm Q15M PRN BUCCAL DECREASED GLUCOSE; Start 08/03/16 at 13:00 Hydralazine HCl (Apresoline) 10 mg Q6H PRN IV SBP > 165; Start 08/03/16 at 21: 00 JEFF RAMOS MD Aug 06, 2016 16:10
[2016-08-07] MEDS: METOPROLOL 50 MG TAB PO SCH ×2 (00:53→08:12)
[2016-08-07] MEDS: ACCUCHECK XX SCH (02:00)
[2016-08-07] MEDS: PANTOPRAZOLE 40 MG INJ IV SCH (05:37)
[2016-08-07 07:58] VITALS: BP 140/65; RESP 21
[2016-08-07] MEDS: INSULIN ASPART [NOVOLOG] 3 ML PEN SC SCH ×2 (08:00→11:51)
[2016-08-07] MEDS: CALCIUM ACETATE 667 MG CAP PO SCH ×2 (08:11→11:52)
[2016-08-07] MEDS: CHOLECALCIFEROL 400 UNITS TAB PO SCH (08:11)
[2016-08-07] MEDS: FOLIC ACID 1 MG TAB PO SCH (08:11)
--- NOTE | 2016-08-07 09:19 | CONS ---
Date/Time of Note Date/Time of Note DATE: 08/06/16 TIME: 22:18 Assessment/Plan Assessment/Plan Chief Complaint/Hosp Course IMPRESSION: 1. Upper gastrointestinal bleeding. 2. Anemia. 3. Leukocytosis. 4. Diabetes mellitus. 5. End-stage renal disease. 6. Hypertension. 7. Status post pacemaker insertion. 8. Coronary artery disease. Plan PPI until sees Dr. Miller as out-pt if dc today biopsy negative for H.Pylori Problems: Consultation Date/Type/Reason Admit Date/Time Aug 02, 2016 at 18:09 Initial Consult Date Type of Consultation: GI 24 HR Interval Summary Free Text/Dictation no n/v, doing well Constitutional: improved Exam/Review of Systems Vital Signs Vitals Vital Signs Date Time Temp Pulse Resp B/P Pulse Ox O2 Delivery O2 Flow Rate FiO2 08/07/16 08:00 Nasal Cannula 2.0 08/07/16 07:58 98.3 79 21 140/65 100 Intake and Output 08/06/16 08/06/16 08/07/16 15:00 23:00 07:00 Intake Total 1200 ml 1090 ml Output Total 3000 ml Balance 1200 ml -1910 ml Exam Head: atraumatic, normocephalic Eyes: EOMI, nl conjunctiva, nl lids, nl sclera ENMT: mucosa pink and moist, nl external ears & nose, nl lips & teeth, nl nasal mucosa & septum Neck: non-tender, supple Respiratory: clear to auscultation, normal air movement Cardiovascular: nl pulses, regular rate and rhythm Gastrointestinal: bowel sounds, non-tender, soft Results Result Diagram: 08/06/16 0415 08/06/16 0415 Results 24 hrs Laboratory Tests Test 08/06/16 11:50 08/06/16 17:02 08/07/16 00:50 08/07/16 08:00 Bedside Glucose 115 121 143 110 Medications Medications Current Medications Cholecalciferol (Vitamin D) 400 units DAILY PO Last administered on 08/07/16 08 :11; Admin Dose 400 UNITS; Start 08/03/16 at 09:00 Clonidine (Catapres) 0.1 mg TID PO Last administered on 08/07/16 08:13; Admin Dose 0.1 MG; Start 08/02/16 at 21:00 Folic Acid (Folic Acid) 1 mg DAILY PO Last administered on 08/07/16 08:11; Admin Dose 1 MG; Start 08/03/16 at 09:00 Hydralazine HCl (Apresoline) 75 mg TID PO Last administered on 08/07/16 08:12; Admin Dose 75 MG; Start 08/02/16 at 21:00 Metoprolol Tartrate (Lopressor) 50 mg BID PO Last administered on 08/07/16 08: 12; Admin Dose 50 MG; Start 08/02/16 at 21:00 Ondansetron HCl (Zofran Inj) 4 mg Q6H PRN IV NAUSEA AND/OR VOMITING; Start at 17:30 Acetaminophen (Tylenol Supp) 650 mg Q6H PRN IN PAIN LEVEL 1-3 OR FEVER; Start 08/02/16 at 17:30 Docusate Sodium (Colace) 100 mg Q12H PRN PO CONSTIPATION; Start 08/02/16 at 17 :30 Pantoprazole (Protonix Iv) 40 mg DAILY@06 IV Last administered on 08/07/16 05: 37; Admin Dose 40 MG; Start 08/03/16 at 06:00 Acetaminophen (Tylenol Tab) 650 mg Q4 PRN PO PAIN LEVEL 1-3 OR FEVER; Start at 01:00 Diagnostic Test (Pha) (Accucheck) Check 2 am Accucheck only if... 02 XX ; Start 08/04/16 at 02:00 Miscellaneous Information 1 ea NOTE XX ; Start 08/03/16 at 13:00 Glucose (Glutose) 15 gm Q15M PRN PO DECREASED GLUCOSE; Start 08/03/16 at 13:00 Glucose (Glutose) 22.5 gm Q15M PRN PO DECREASED GLUCOSE; Start 08/03/16 at 13: 00 Dextrose (D50w Syringe) 25 ml Q15M PRN IV DECREASED GLUCOSE; Start 08/03/16 at 13:00 Dextrose (D50w Syringe) 50 ml Q15M PRN IV DECREASED GLUCOSE; Start 08/03/16 at 13:00 Glucagon (Glucagen) 1 mg Q15M PRN IM DECREASED GLUCOSE; Start 08/03/16 at 13: 00 Glucose (Glutose) 15 gm Q15M PRN BUCCAL DECREASED GLUCOSE; Start 08/03/16 at 13:00 Hydralazine HCl (Apresoline) 10 mg Q6H PRN IV SBP > 165; Start 08/03/16 at 21: 00 JOANNE LARSON MD Aug 07, 2016 09:19
[2016-08-07 13:00] VITALS: BP 130/80; PULSE 80; RESP 18
--- NOTE | 2016-08-07 14:19 | PDOCDIS ---
Discharge Instructions CONDITION Patient Condition: Good HOME CARE INSTRUCTIONS: Special Diet: renal diet ACTIVITY: Activity Restrictions: Slowly Increase Activity FOLLOW UP/APPOINTMENTS Appointments f/u dr ramos [address] mora 12 wks JEFF RAMOS MD Aug 07, 2016 14:19
[2016-08-07] MEDS ORDERED: PANT40TA3 PO (14:21)
--- NOTE | 2016-08-07 14:43 | QN ---
Documentation Comment [id number] JEFF RAMOS MD Aug 07, 2016 14:43
--- NOTE | 2016-08-07 18:11 | DS ---
DATE OF ADMISSION: 08/02/2016 DATE OF DISCHARGE: 08/07/2016 HOSPITAL COURSE: The patient was admitted with gastrointestinal bleed, was seen by Dr. Miller in co nsultation. The patient underwent EGD, shows normal esophagus, Z line at 40 cm, 2 antral ulcers, py loric ____ ulcerated, normal duodenum and ampulla, no varicose vein. The patient was on PPI for at least 3 months. The patient also underwent hemodialysis. Electrolytes are stable. Received a bloo d transfusion. DISCHARGE DIAGNOSES: 1. Gastrointestinal bleed. 2. Peptic ulcer disease. 3. Duodenitis. 4. Anemia. 5. Endstage renal disease. 6. Hypertension. 7. Diabetes mellitus. 8. Atherosclerotic heart disease. 9. Pacemaker placement. 10. Dyslipidemia. DISCHARGE MEDICATIONS: The patient to continue Protonix 40 b.i.d. DISCHARGE INSTRUCTIONS: Follow up with Dr. Miller, PCP, and myself as an outpatient in 2 weeks. DIET: Renal diet. CONDITION: The patient is stable at the time of discharge. Dictated By: JEFF RAMOS MD BS/NTS Conf#: [id number] DID#: [id number]
== END 2016-08-07 15:11 | disposition home or self-care (01) | DRG 377 ==
LOC: E/R 10:25 → PP2 18:09
PROVIDERS: ADMIT Internal Medicine Nephrology; ATTEND Internal Medicine Nephrology
PROC: 30233N1 Transfusion of Nonautologous Red Blood Cells into Peripheral Vein, Percutaneous Approach (ICD-10-PCS; 2016-08-02)
PROC: 0DB68ZX Excision of Stomach, Via Natural or Artificial Opening Endoscopic, Diagnostic (ICD-10-PCS; principal; 2016-08-04 14:15)
DX: K92.2 Gastrointestinal hemorrhage, unspecified (principal); N18.6 End stage renal disease; I12.0 Hypertensive chronic kidney disease with stage 5 chronic kidney disease or end stage renal disease; D64.9 Anemia, unspecified; I25.10 Atherosclerotic heart disease of native coronary artery without angina pectoris; K25.9 Gastric ulcer, unspecified as acute or chronic, without hemorrhage or perforation; Z95.0 Presence of cardiac pacemaker
CPT/HCPCS: 36415; 36430; 71010; 80048; 80053; 81001; 81003; 82962; 83605; 83690; 84484; 85014; 85018; 85025; 85610; 85730; 86850; 86900; 86901; 86920; 88305; 88312; 90935; 93005; 96374; 96375; C9113; J1815; J2270; J2405; J3010; J7030; P9016

== ENCOUNTER 2016-08-19 15:01 | Emergency (ER) | payer MEDICARE, OTHER ==
[~2016-08-19] VITALS: Ht 165.1 cm; Wt 83.0 kg
[~2016-08-19 15:01] MED LIST changes: -CEPH-443 PO; +PANT40TA3 PO
[2016-08-19 15:11] VITALS: Ht 165.1 cm; Wt 83.0 kg
== END 2016-08-19 20:50 | disposition left against medical advice (07) ==
LOC: E/R 15:01
DX: Z53.21 Procedure and treatment not carried out due to patient leaving prior to being seen by health care provider (principal)

== ENCOUNTER 2017-02-06 17:36 | Emergency (ER) | payer MEDICARE, OTHER ==
[~2017-02-06] VITALS: Ht 172.7 cm; Wt 83.0 kg
[~2017-02-06 17:36] MED LIST changes: -APR50 PO; +HYDR-3672 PO
[2017-02-06 17:40] VITALS: Ht 172.7 cm; Wt 83.0 kg
[2017-02-06 18:42] LABS: URINE BLOOD (Dip) POC 2+ (NEGATIVE)
[2017-02-06] MEDS ORDERED: CEPH-443 PO (18:47)
[2017-02-06] MEDS ORDERED: PHEN-538 PO (18:47)
--- NOTE | 2017-02-06 18:50 | ERD ---
ER Documentation Chief Complaint Date/Time DATE: 02/06/17 TIME: 18:49 Chief Complaint PAINFUL URINATION X 2 DAYS HPI 66-year-old female complains of dysuria for last 2 days. She denies any fevers , vomiting, shortness with chest pain. She has some slight hematuria as well. She is a dialysis patient but is able to urinate . ROS All systems reviewed and are negative except as per history of present illness. Medications Home Meds Active Scripts Phenazopyridine Hcl* (Pyridium*) 200 Mg Tab, 200 MG PO TID Y for URINARY PAIN, # 6 TAB Prov:EULALIO MICHELE MD 02/06/17 Cephalexin* (Keflex*) 500 Mg Capsule, 500 MG PO QID for 5 Days, CAP Prov:EULALIO MICHELE MD 02/06/17 Pantoprazole* (Protonix*) 40 Mg Tablet.dr, 40 MG PO BID for 28 Days, TAB Prov:JEFF RAMOS MD 08/07/16 Reported Medications Metoprolol Tartrate* (Lopressor*) 50 Mg Tab, 50 MG PO BID, #60 TAB 07/02/16 Insulin Detemir* (Levemir*) 100 U/Ml Vial, 18 UNIT SC HS, VIAL 10/24/14 Cholecalciferol* (Vitamin D*) 400 Unit Tablet, 400 UNIT PO DAILY, TAB 09/23/14 Insulin Lispro (Humalog) 100 U/Ml Insuln.pen, 5 UNIT SC WITH MEALS, EA 09/23/14 Folic Acid* (Folic Acid*) 1 Mg Tablet, 1 MG PO DAILY, TAB 05/19/14 Calcium Acetate* (Phoslo*) 667 Mg Tablet, 2001 MG PO TID, TAB 05/19/14 Clonidine Hcl* (Clonidine Hcl*) 0.1 Mg Tab, 0.1 MG PO TID, TAB 05/19/14 Hydralazine Hcl* (Hydralazine Hcl*) 50 Mg Tab, 75 MG PO TID, TAB 05/19/14 Allergies Allergies: Coded Allergies: No Known Allergy (Unverified , 08/02/16) PMhx/Soc History of Surgery: Yes Anesthesia Reaction: No Hx Neurological Disorder: No Hx Respiratory Disorders: No Hx Cardiac Disorders: Yes (Pacemaker, HTN) Hx Psychiatric Problems: No Hx Miscellaneous Medical Probl: No Hx Alcohol Use: No (Denies) Hx Substance Use: No Hx Tobacco Use: No Smoking Status: Never smoker Physical Exam Vitals Vital Signs Date Time Temp Pulse Resp B/P Pulse Ox O2 Delivery O2 Flow Rate FiO2 02/06/17 17:40 98.2 73 18 182/83 96 Physical Exam Const: [], Not ill-appearing per Head: Atraumatic Eyes: Normal Conjunctiva ENT: Normal External Ears, Nose and Mouth. Neck: Full range of motion..~ No meningismus. Resp: Clear to auscultation bilaterally Cardio: Regular rate and rhythm, no murmurs Abd: Soft, non tender, non distended. Normal bowel sounds Skin: No petechiae or rashes Back: No midline or flank tenderness Ext: No cyanosis, or edema Neur: Awake and alert Psych: Normal Mood and Affect Results 24 hrs Laboratory Tests Test 02/06/17 18:47 Bedside Urine pH (LAB) 8.5 Bedside Urine Protein (LAB) 2+ Bedside Urine Glucose (UA) Negative Bedside Urine Ketones (LAB) Negative Bedside Urine Blood 2+ Bedside Urine Nitrite (LAB) Negative Bedside Urine Leukocyte Esterase (L 2+ Current Medications Medications (Trade) Dose Ordered Sig/Amita Route PRN Reason Start Time Stop Time Status Last Admin Dose Admin Cephalexin (Keflex) 500 mg ONCE ONCE PO 02/06/17 19:00 02/06/17 19:01 Procedures/MDM And shows positive leukocytes and hemoglobin. Patient was given Keflex 500 mg by mouth. Patient presents with signs of UTI without signs to suggest acute abdomen, pyonephritis, sepsis. She will treated with Keflex at home and Pyridium. The patient was stable with no new complaints during the ER course. Clinically, there is no current evidence to suggest meningitis, sepsis, acute abdomen, pneumonia, acute coronary syndrome, pulmonary embolism, or any other emergent condition appearing to require further evaluation or hospitalization. The patient should certainly return for any new or worsening symptoms per the aftercare instructions. They should otherwise follow-up with her primary care doctor for reevaluation this week. Departure Diagnosis: Primary Impression: Dysuria Additional Impressions: UTI (urinary tract infection) Urinary tract infection type: acute cystitis Hematuria presence: without hematuria Qualified Code: N30.00 - Acute cystitis without hematuria Urinary tract infection Urinary tract infection type: acute cystitis Hematuria presence: without hematuria Qualified Code: N30.00 - Acute cystitis without hematuria Condition: Stable Patient Instructions: Understanding Urinary Tract Infections (UTIs) Additional Instructions: Recheck for new or worsening symptoms or primary care doctor. EULALIO MICHEEL MD Feb 06, 2017 18:50
[2017-02-06] MEDS ORDERED: CEPHALEXIN 500 MG CAP PO ONE (19:00)
[2017-02-06 19:07] VITALS: BP 164/89; PULSE 96; RESP 17; TEMP 97.6
== END 2017-02-06 19:11 | disposition home or self-care (01) ==
LOC: FTE 17:36
DX: R30.0 Dysuria (principal); N30.00 Acute cystitis without hematuria; I10 Essential (primary) hypertension; Z79.4 Long term (current) use of insulin; Z95.0 Presence of cardiac pacemaker
CPT/HCPCS: 81003; 99283

== ENCOUNTER 2017-04-05 02:52 | Inpatient (IN) | payer MEDICARE, OTHER ==
[2017-04-05] VITALS (10 sets, daily range): BP systolic 138–163; BP diastolic 64–78; PULSE 72–86; RESP 17–18; Ht 167.6 cm; Wt 80.0 kg
[~2017-04-05] VITALS: Ht 167.6 cm; Wt 80.0 kg
[~2017-04-05 02:52] MED LIST changes: +CEPH-443 PO; +PHEN-538 PO
--- NOTE | 2017-04-05 04:48 | RADRPT ---
PROCEDURE: XR Chest. CLINICAL INDICATION: Shortness of breath TECHNIQUE: AP Portable chest. COMPARISON: 08/02/2016 FINDINGS: The left subclavian dual lead pacemaker is unchanged. The cardiomediastinal silhouette is enlarged. The aortic arch is calcified. The pulmonary arteries are dilated. Bilateral interstitial densities and retrocardiac opacity are visualized. No sizable pleural effusion or pneumothorax is identified. The osseous structures are intact. IMPRESSION: Pulmonary edema. Retrocardiac infiltrate or atelectasis. Physician Deny Date Time Electronically viewed and signed by Physician Deny on 04/05/2017 04:47 CS/
[2017-04-05] MEDS ORDERED: ALBUTEROL 0.083% (NEB) 2.5 MG/3 ML AMP HHN ONE (04:54)
[2017-04-05] MEDS ORDERED: IPRATROPIUM (NEB) 0.5 MG/2.5 ML AMP ONE (04:55)
[2017-04-05] MEDS ORDERED: ALBUTEROL 0.083% (NEB) 2.5 MG/3 ML AMP ONE (04:55)
[2017-04-05] MEDS ORDERED: IPRATROPIUM (NEB) 0.5 MG/2.5 ML AMP HHN ONE (05:00)
[2017-04-05 05:16] LABS: BASOPHILS % 0.2 % (0.0-2.0); EOSINOPHILS # 0.4 10^3/ul (0.0-0.5); EOSINOPHILS % 3.1 % (0.0-7.0); HEMATOCRIT 34.5 % (37.0-47.0); HEMOGLOBIN 11.4 g/dl (12.0-16.0); LYMPHOCYTES # 1.5 10^3/ul (0.8-2.9); LYMPHOCYTES % 11.8 % (15.0-51.0); MEAN CORPUSCULAR HEMOGLOBIN 32.2 pg (29.0-33.0); MEAN CORPUSCULAR VOLUME 97.5 fl (82.0-101.0); MEAN PLATELET VOLUME 10.5 fl (7.4-10.4); MONOCYTE # 1.2 10^3/ul (0.3-0.9); MONOCYTES % 9.5 % (0.0-11.0); NEUTROPHILS % 74.8 % (39.0-77.0); PLATELET COUNT 154 10^3/UL (140-415); RED BLOOD COUNT 3.54 10^6/ul (4.20-5.40); RED CELL DISTRIBUTION WIDTH 13.1 % (11.5-14.5); WHITE BLOOD COUNT 12.8 10^3/ul (4.8-10.8)
[2017-04-05 05:33] LABS: INR 0.92; PROTIME 12.4 Sec (12.2-14.2)
[2017-04-05 05:34] LABS: PARTIAL THROMBOPLASTIN TIME 35.9 Sec (25.0-35.0)
[2017-04-05 05:35] LABS: ALBUMIN 4.5 g/dl (3.3-4.9); ALBUMIN/GLOBULIN RATIO 1.02; CALCIUM 9.1 mg/dl (8.4-10.2); CREATININE 8.03 mg/dl (0.44-1.00); POTASSIUM 4.6 mmol/L (3.5-5.1); TOTAL PROTEIN 8.9 g/dl (6.1-8.1)
[2017-04-05] MEDS ORDERED: ASPI-664 PO (05:35)
[2017-04-05 05:47] LABS: TROPONIN-I 0.045 ng/ml (0.00-0.12)
--- NOTE | 2017-04-05 05:49 | ERA ---
ER Documentation Chief Complaint Date/Time DATE: 04/05/17 TIME: 05:48 Chief Complaint c/o coughing x1 day. Noted with mod SOB, o2 sat 88-89%. Hx: Dialysis HPI Drug abuse 66-year-old male comes in with a cough and shortness of breath for the past day. Patient is a dialysis patient said he started feeling short of breath consistently since his last dialysis treatment. No fevers no chills no nausea no vomiting no other current complaints. ROS All systems reviewed and are negative except as per history of present illness. Medications Home Meds Active Scripts Phenazopyridine Hcl* (Pyridium*) 200 Mg Tab, 200 MG PO TID Y for URINARY PAIN, # 6 TAB Prov:EULALIO MICHELE MD 02/06/17 Pantoprazole* (Protonix*) 40 Mg Tablet.dr, 40 MG PO BID for 28 Days, TAB Prov:JEFF RAMOS MD 08/07/16 Reported Medications Aspirin* (Aspirin* EC) 81 Mg Tablet.dr, 81 MG PO DAILY, TAB 04/05/17 Metoprolol Tartrate* (Lopressor*) 50 Mg Tab, 50 MG PO BID, #60 TAB 07/02/16 Insulin Detemir* (Levemir*) 100 U/Ml Vial, 18 UNIT SC HS, VIAL 10/24/14 Insulin Lispro (Humalog) 100 U/Ml Insuln.pen, 5 UNIT SC WITH MEALS, EA 09/23/14 Folic Acid* (Folic Acid*) 1 Mg Tablet, 1 MG PO DAILY, TAB 05/19/14 Calcium Acetate* (Phoslo*) 667 Mg Tablet, 2001 MG PO TID, TAB 05/19/14 Clonidine Hcl* (Clonidine Hcl*) 0.1 Mg Tab, 0.1 MG PO TID, TAB 05/19/14 Hydralazine Hcl* (Hydralazine Hcl*) 50 Mg Tab, 75 MG PO TID, TAB 05/19/14 Discontinued Reported Medications Cholecalciferol* (Vitamin D*) 400 Unit Tablet, 400 UNIT PO DAILY, TAB 09/23/14 Discontinued Scripts Cephalexin* (Keflex*) 500 Mg Capsule, 500 MG PO QID for 5 Days, CAP Prov:EULALIO MICHELE MD 02/06/17 Allergies Allergies: Coded Allergies: No Known Allergy (Unverified , 04/05/17) PMhx/Soc History of Surgery: Yes Anesthesia Reaction: No Hx Neurological Disorder: No Hx Respiratory Disorders: No Hx Cardiac Disorders: Yes (Pacemaker, HTN) Hx Psychiatric Problems: No Hx Miscellaneous Medical Probl: Yes (chronic kidney failure,HD TThSat) Hx Alcohol Use: No (Denies) Hx Substance Use: No Hx Tobacco Use: No Smoking Status: Never smoker Physical Exam Vitals Vital Signs Date Time Temp Pulse Resp B/P Pulse Ox O2 Delivery O2 Flow Rate FiO2 04/05/17 05:30 89 28 172/83 97 Nasal Cannula 3.0 04/05/17 05:01 81 22 98 Nasal Cannula 3.0 04/05/17 05:01 98 3.0 04/05/17 03:43 Nasal Cannula 3 04/05/17 03:43 Nasal Cannula 2.0 04/05/17 03:43 98 26 99 Nasal Cannula 3.0 04/05/17 03:06 97.8 79 24 143/84 88 Physical Exam Const: [] Head: Atraumatic Eyes: Normal Conjunctiva ENT: Normal External Ears, Nose and Mouth. Neck: Full range of motion..~ No meningismus. Resp: Clear to auscultation bilaterally Cardio: Regular rate and rhythm, no murmurs Abd: Soft, non tender, non distended. Normal bowel sounds Skin: No petechiae or rashes Back: No midline or flank tenderness Ext: No cyanosis, or edema Neur: Awake and alert Psych: Normal Mood and Affect Result Diagram: 04/05/17 0417 04/05/17 0417 Results 24 hrs Laboratory Tests Test 04/05/17 04:17 White Blood Count 12.810^3/ul Red Blood Count 3.5410^6/ul Hemoglobin 11.4g/dl Hematocrit 34.5% Mean Corpuscular Volume 97.5fl Mean Corpuscular Hemoglobin 32.2pg Mean Corpuscular Hemoglobin Concent 33.0g/dl Red Cell Distribution Width 13.1% Platelet Count 63250^3/UL Mean Platelet Volume 10.5fl Neutrophils % 74.8% Lymphocytes % 11.8% Monocytes % 9.5% Eosinophils % 3.1% Basophils % 0.2% Nucleated Red Blood Cells % 0.0/100WBC Neutrophils # (Manual) 9.610^3/ul Lymphocytes # 1.510^3/ul Monocytes # 1.210^3/ul Eosinophils # 0.410^3/ul Basophils # 0.010^3/ul Nucleated Red Blood Cells # 0.010^3/ul Prothrombin Time 12.4Sec Prothrombin Time Ratio 1.0 INR International Normalized Ratio 0.92 Activated Partial Thromboplast Time 35.9Sec Sodium Level 140mmol/L Potassium Level 4.6mmol/L Chloride Level 95mmol/L Carbon Dioxide Level 22mmol/L Anion Gap 28 Blood Urea Nitrogen 63mg/dl Creatinine 8.03mg/dl Glucose Level 97mg/dl Calcium Level 9.1mg/dl Total Bilirubin 0.0mg/dl Direct Bilirubin 0.00mg/dl Indirect Bilirubin 0.0mg/dl Aspartate Amino Transf (AST/SGOT) 42IU/L Alanine Aminotransferase (ALT/SGPT) 26IU/L Alkaline Phosphatase 160IU/L Troponin I Pending B-Type Natriuretic Peptide Pending Total Protein 8.9g/dl Albumin 4.5g/dl Globulin 4.40g/dl Albumin/Globulin Ratio 1.02 Current Medications Medications (Trade) Dose Ordered Sig/Amita Route PRN Reason Start Time Stop Time Status Last Admin Dose Admin Albuterol (Proventil 0.083% (Neb)) 5 mg ONCE ONCE [facility] 04/05/17 04:54 04/05/17 04:55 DC 04/05/17 05:01 Ipratropium [place] (Atrovent 0.02% (Neb)) 0.5 mg ONCE ONCE [facility] 04/05/17 05:00 04/05/17 05:01 DC 04/05/17 05:00 Procedures/MDM EKG: Rate/Rhythm: Normal Sinus Rhythm QRS, ST, T-waves: No changes consistent w/ acute ischemia Impression: No evidence of ischemia or arrhythmia Chest X-ray 1V Interpreted by me: Soft Tissue: No acute abnormalities Bones: No acute abnormalities Mediastinum/Cardiac Silhouette/Lungs: No acute abnormalities Patient's heart failure symptoms is concerning for acute decompensation and will require inpatient workup and monitoring. Further w/u for ischemia, arrhythmia, PE or dissection will be deferred to the inpatient team. Accepting Care Team: Current data and ongoing care discussed. Time: 5 AM primary Provider: Kade Consulting: [XOXOXO] Outstanding Data: none Departure Diagnosis: Primary Impression: Shortness of breath Condition: Serious DELMER GOODRICH Apr 05, 2017 05:49
[2017-04-05] MEDS ORDERED: ACETAMINOPHEN 325 MG TAB PO PRN ×2 (07:00→08:30)
[2017-04-05] MEDS ORDERED: ONDANSETRON 4 MG INJ IV PRN ×2 (07:00→08:30)
[2017-04-05] MEDS ORDERED: ZOLPIDEM 5 MG TAB PO PRN (08:30)
[2017-04-05] MEDS ORDERED: NACL 0.9% 3 ML SYG IV SCH (08:30)
[2017-04-05] MEDS ORDERED: HYDROCODONE/APAP (5/325) TAB PO PRN (08:30)
[2017-04-05] MEDS ORDERED: DOCUSATE SODIUM 100 MG CAP PO PRN (08:30)
[2017-04-05] MEDS ORDERED: OXYCODONE/ACETAMINOPHEN (5/325) TAB PO PRN (08:30)
[2017-04-05] MEDS: FAMOTIDINE 20 MG INJ IV SCH (10:00)
[2017-04-05] MEDS: HEPARIN 5,000 UNIT/0.5 ML VIAL SC SCH ×2 (10:00→20:56)
--- NOTE | 2017-04-05 11:00 | HP ---
DATE OF ADMISSION: 04/05/2017 REASON FOR ADMISSION: Shortness of breath and cough. HISTORY OF PRESENT ILLNESS: This is a 66-year-old woman with a past medical history of diabetes for 20 years, hypertension, hypercholesteremia, and a history of end-stage renal disease, on hemodialysis, Monday, and Monday, who presented to the emergency department complaining of shortness of breath for 1 day. According to the patient, she goes to dialysis center [facility] [place]. The last time when she went to her dialysis center, she was 3 kg over her dry weight. Her dry weight is 80 kg. She was 83 kg. Thy removed 3 kg and when she went home, she became short of breath and came to the emergency department. The patient said that last session, she had gained 1.5 kg and they were able to remove it. The patient denied any increased in discriminatory salt intake. Makes minimal urine. The patient also complained of cough. Denied any fevers and chills. Denies any orthopnea or PND, any lower extremity edema. In the ER, the patient was having a blood pressure of 172/83, heart rate 89, respiratory rate 28, saturating 93 on nasal cannula. Patient had a chest x-ray that showed pulmonary edema and was given some albuterol and Atrovent and was admitted. I was called in for further management. PAST MEDICAL HISTORY: 1. Diabetes for 20 years, with diabetic neuropathy and diabetic nephropathy. 2. End-stage renal disease, on hemodialysis Monday, , Monday at [facility] [place]. 3. History of AV fistula placement. 4. History of pacemaker placement. 5. Questionable coronary artery disease. 6. Questionable CHF. ALLERGIES: NEGATIVE. PAST SURGICAL HISTORY: Significant for: 1. A right upper extremity fistula placement. 2. Some ovarian surgery. 3. Pacemaker placement. SOCIAL HISTORY: Denies any history of smoking, alcohol, or drug use. Lives at home with family. MEDICATIONS: At home: 1. Clonidine 0.1. 2. Metoprolol 25 b.i.d. 3. Hydralazine 75 b.i.d. 4. Protonix 40. 5. Phoslo. 6. Lantus 15. 7. Humalog 5 t.i.d. REVIEW OF SYSTEMS: HEENT: Unremarkable. RESPIRATORY: Shortness of breath. CARDIOVASCULAR: Denies any chest pain, orthopnea, PND, or lower extremity edema. ABDOMEN: Soft. Denies any nausea, vomiting, diarrhea, any hematemesis or any melena. EXTREMITIES: Denies any lower extremity edema. NEUROLOGIC: Denies any focal neurological deficits. PHYSICAL EXAMINATION: VITAL SIGNS: Temperature 97.6, heart rate is 89, respirations 26, blood pressure 150/73, saturating 97 percent on 3 L nasal cannula. GENERAL: Patient is awake, alert, oriented x4. Does not appear to be in any acute distress. HEENT: Pupils equal, round, reactive to light. NECK: Supple. Some JVD. HEART: Regular rate and rhythm. ABDOMEN: Soft, nontender, nondistended. Positive bowel sounds. EXTREMITIES: No clubbing. Trace edema. NEUROLOGIC: Nonfocal. ACCESS: The patient has a right upper extremity fistula with good bruit and thrill. The patient also has a left pacemaker in the anterior chest wall. DIAGNOSTIC DATA: BMP: Potassium of 4.6, BUN of 63, creatinine of 8.03. BNP of 11,600. White count of 12.8, hemoglobin 11.8, platelet count is 154. INR is 1.02. Troponin was negative. Chest x-ray shows pulmonary edema, retrocardiac infiltrate or atelectasis. EKG: Paced rhythm, no ST-T wave changes. ASSESSMENT AND PLAN: This is a 66-year-old woman presenting with: 1. Shortness of breath and cough for 1 day. Patient has evidence of pulmonary edema on exam, and also on the chest x-ray. BNP is elevated, likely congestive heart failure exacerbation. 2. Hypertension. 3. End-stage renal disease, on hemodialysis. 4. Diabetes. 5. Hypertension. 6. Hypercholesteremia. 7. History of pacemaker placement. PLAN: At this period of time, patient will be admitted to telemetry. A V/Q scan has been ordered to check if the patient has any evidence of PE. Since patient makes minimal urine, we will do dialysis today. Patient will be strict I's and O's, fluid restriction and daily weights. We will also get an echocardiogram. We will continue the patient on metoprolol, aspirin and probably start an RADHA. We will also follow GI and DVT prophylaxis. The rest of the treatment will depend on the patient's hospitalization course. Dictated By: MD PATRICIA Card/jenna/ryan /Document#: [id number]
[2017-04-05] MEDS ORDERED: ACETAMINOPHEN 650 MG SUPP PR ONE (14:30)
--- NOTE | 2017-04-05 18:16 | RADRPT ---
Echocardiogram Report Patient Name: EPI GUSTAFSON Gender: Female Date: 1950 Study Date: 05-Apr-2017 Mail Superintendent: Jackie [facility] Location: [facility] Ref. Physician: ELIANA NEELY Quality: Adequate Procedures: Transthoracic echocardiogram with complete 2D, M-Mode, and doppler examination. Indications: Check for EF, Diastolic Dysfunction?. 2D/M Mode Doppler Measurement Value Normal Ranges Measurement Value Normal Ranges LVIDd 2D 4.3 3.5 - 5.6 cm AV Peak Roberto 1.9 m/sec LVIDs 2D 3.0 2.1 - 4.1 cm AV Peak PG 14.0 mmHg FS 2D 29.4 % LVOT Peak Roberto 0.9 m/sec LVPWd 2D 1.5 0.6 - 1.1 cm LVOT Peak PG 3.0 mmHg IVSd 2D 1.5 0.6 - 1.1 cm MV E Peak Roberto 0.9 m/sec IVS/LVPW 2D 1.0 MV A Peak Roberto 1.0 m/sec AoR Diam 2D 2.9 2.0 - 3.7 cm MV E/A 0.9 LA/Ao 2D 1 0 - 1 MV Decel Time 232 msec EDV 2D 80.6 cm3 MV E/A 0.9 ESV 2D 28.4 cm3 TR Peak Roberto 3.0 m/sec LA Dimen 2D 3.3 2.3 - 4.0 cm TR Peak PG 36.0 mmHg RVSP 39.0 mmHg Findings Left Ventricle: Lower limits of normal systolic function. Normal left ventricular cavity size. Moderate concentric left ventricular hypertrophy. Ejection fraction is visually estimated at 5055 %. Tissue Doppler/Mitral Doppler indices are consistent with impaired relaxation (Stage I diastolic dysfunction). Right Ventricle: Normal right ventricular size. Normal right ventricular systolic function. Pacemaker right heart. Left Atrium: The left atrium is normal in size. Right Atrium: The right atrium is normal in size. Mitral Valve: Mild mitral leaflet calcification. Mild mitral annular calcification. Trace mitral regurgitation. Aortic Valve: Normal appearance of the aortic valve. No significant aortic stenosis or insufficiency. Tricuspid Valve: Normal appearance of the tricuspid valve. Estimated peak PA systolic pressure 39 mmHg. There is trace tricuspid regurgitation. Pulmonic Valve: Pulmonic valve not well visualized. There is trace pulmonic regurgitation. Pericardium: Normal pericardium with no significant pericardial effusion. Aorta: Normal aortic root. IVC: Normal size and normal respiratory collapse consistent with normal right atrial pressure. Conclusions 1.Lower limits of normal systolic function. Normal left ventricular cavity size. Moderate concentric left ventricular hypertrophy. Ejection fraction is visually estimated at 50-55 %. Tissue Doppler/Mitral Doppler indices are consistent with impaired relaxation (Stage I diastolic dysfunction). 2.Normal right ventricular size. Normal right ventricular systolic function. Pacemaker right heart. 3.Mild mitral leaflet calcification. Mild mitral annular calcification. Trace mitral regurgitation. 4.Normal appearance of the tricuspid valve. Estimated peak PA systolic pressure 39 mmHg. There is trace tricuspid regurgitation. 5.Pulmonic valve not well visualized. There is trace pulmonic regurgitation. Electronically Signed By: Yfn Crouch 05-Apr-2017 18:15:48 -0700 Patient Name: EPI GUSTAFSON Study Date: 05-Apr-2017 [id number]
[2017-04-05] MEDS ORDERED: GLUCOSE GEL 15 GRAM TUBE BUCCAL PRN (21:30)
[2017-04-05] MEDS ORDERED: GLUCOSE GEL 15 GRAM TUBE PO PRN ×2 (21:30)
[2017-04-05] MEDS ORDERED: GLUCAGON 1 MG INJ IM PRN (21:30)
[2017-04-05] MEDS ORDERED: DEXTROSE 50% 50 ML SYRINGE IV PRN ×2 (21:30)
[2017-04-05] MEDS: INSULIN ASPART [NOVOLOG] 3 ML PEN SC SCH (22:06)
[2017-04-06] VITALS (20 sets, daily range): BP systolic 111–168; BP diastolic 61–78; PULSE 72–106; RESP 18–85
[2017-04-06] MEDS ORDERED: ACCU-CHEK XX SCH (02:00)
[2017-04-06] MEDS: ACCU-CHEK XX SCH (02:53)
[2017-04-06 07:34] LABS: BASOPHILS % 0.2 % (0.0-2.0); EOSINOPHILS # 0.1 10^3/ul (0.0-0.5); EOSINOPHILS % 0.5 % (0.0-7.0); HEMATOCRIT 34.1 % (37.0-47.0); HEMOGLOBIN 10.9 g/dl (12.0-16.0); LYMPHOCYTES # 1.6 10^3/ul (0.8-2.9); LYMPHOCYTES % 10.8 % (15.0-51.0); MEAN CORPUSCULAR HEMOGLOBIN 30.8 pg (29.0-33.0); MEAN CORPUSCULAR VOLUME 96.3 fl (82.0-101.0); MEAN PLATELET VOLUME 10.9 fl (7.4-10.4); MONOCYTE # 1.4 10^3/ul (0.3-0.9); MONOCYTES % 9.5 % (0.0-11.0); NEUTROPHILS % 78.5 % (39.0-77.0); PLATELET COUNT 148 10^3/UL (140-415); RED BLOOD COUNT 3.54 10^6/ul (4.20-5.40); RED CELL DISTRIBUTION WIDTH 13.3 % (11.5-14.5); WHITE BLOOD COUNT 14.7 10^3/ul (4.8-10.8)
[2017-04-06 07:42] LABS: CALCIUM 9.5 mg/dl (8.4-10.2); CREATININE 7.7 mg/dl (0.44-1.00); MAGNESIUM 2.3 mg/dl (1.7-2.5); PHOSPHORUS 5.2 mg/dl (2.5-4.9); POTASSIUM 4.7 mmol/L (3.5-5.1)
[2017-04-06] MEDS: INSULIN ASPART [NOVOLOG] 3 ML PEN SC SCH ×5 (07:55→22:11)
[2017-04-06] MEDS: FAMOTIDINE 20 MG INJ IV SCH (09:04)
[2017-04-06] MEDS: HEPARIN 5,000 UNIT/0.5 ML VIAL SC SCH ×2 (09:15→22:10)
--- NOTE | 2017-04-06 10:29 | PN ---
Date/Time of Note Date/Time of Note DATE: 04/06/17 TIME: 10:29 Assessment/Plan VTE Prophylaxis VTE Prophylaxis Intervention: heparin Lines/Catheters IV [facility]from [facility] Saline Lock Assessment/Plan Chief Complaint/Hosp Course 66 y/o with # SOB likely due to CHF, V/Q scan pending # Hypertension. # End-stage renal disease, on hemodialysis. # Diabetes. # Hypercholesteremia. # History of pacemaker placement # Hyperphosphetemia # Anemia Recs - Will do 2nd session of HD today - V/Q scan pending - Resume home meds - ECHO - GI/DVT prophylaxsis Problems: Subjective 24 Hr Interval Summary Free Text/Dictation Pt feels a lot better today Says her breathing has improved S/P HD with removal of 4 L Exam/Review of Systems Vital Signs Vitals Vital Signs Date Time Temp Pulse Resp B/P Pulse Ox O2 Delivery O2 Flow Rate FiO2 04/06/17 08:00 76 04/06/17 07:42 Nasal Cannula 3.0 04/06/17 07:41 98.6 18 150/68 98 Intake and Output 04/05/17 04/05/17 04/06/17 15:00 23:00 07:00 Intake Total 500 ml 250 ml Output Total 4000 ml Balance -3500 ml 250 ml Exam Gen:awake,alert Neck:supple CVS:Regular rate and rthym Lungs: few crackels b/l Abdomen:soft,, non tender Ext : no edema +RUE fistula Results Result Diagram: 04/06/17 0621 04/06/17 0621 Results 24 hrs Laboratory Tests Test 04/05/17 16:55 04/05/17 20:52 04/06/17 02:48 04/06/17 06:21 Bedside Glucose 138 245 H 106 White Blood Count 14.7 H Red Blood Count 3.54 L Hemoglobin 10.9 L Hematocrit 34.1 L Mean Corpuscular Volume 96.3 Mean Corpuscular Hemoglobin 30.8 Mean Corpuscular Hemoglobin Concent 32.0 Red Cell Distribution Width 13.3 Platelet Count 148 Mean Platelet Volume 10.9 H Neutrophils % 78.5 H Lymphocytes % 10.8 L Monocytes % 9.5 Eosinophils % 0.5 Basophils % 0.2 Nucleated Red Blood Cells % 0.0 Neutrophils # (Manual) 11.5 H Lymphocytes # 1.6 Monocytes # 1.4 H Eosinophils # 0.1 Basophils # 0.0 Nucleated Red Blood Cells # 0.0 Sodium Level 139 Potassium Level 4.7 Chloride Level 89 L Carbon Dioxide Level 30 Anion Gap 25 H Blood Urea Nitrogen 57 H Creatinine 7.70 H Glucose Level 99 Calcium Level 9.5 Phosphorus Level 5.2 H Magnesium Level 2.3 Test 04/06/17 07:32 Bedside Glucose 95 Medications Medications Current Medications Ondansetron HCl (Zofran Inj) 4 mg Q6H PRN IV NAUSEA AND/OR VOMITING; Start at 08:30 Acetaminophen (Tylenol Tab) 650 mg Q6H PRN PO PAIN LEVEL 1-3 OR FEVER; Start at 08:30 Acetaminophen/ Hydrocodone Bitart ([place] (5/325)) 1 tab Q6H PRN PO MODERATE PAIN LEVEL 4-6; Start 04/05/17 at 08:30 Oxycodone/ Acetaminophen (Percocet (5/ 325)) 2 tab Q6H PRN PO SEVERE PAIN LEVEL 7-10; Start 04/05/17 at 08:30 Docusate Sodium (Colace) 100 mg Q12H PRN PO CONSTIPATION; Start 04/05/17 at 08: 30 Zolpidem Tartrate (Ambien) 5 mg QHS PRN PO SLEEP; Start 04/05/17 at 08:30 Famotidine (Pepcid Iv) 20 mg DAILY IV Last administered on 04/06/17 09:04; Admin Dose 20 MG; Start 04/05/17 at 09:00 Heparin Sodium (Porcine) (Heparin (5000 Units/0.5 ml)) 5,000 unit Q12 SC Last administered on 04/06/17 09:15; Admin Dose 5,000 UNIT; Start 04/05/17 at 09:00 Diagnostic Test (Pha) (Accu-Chek) 1 ea 02 XX Last administered on 04/06/17 02: 53; Admin Dose 1 EA; Start 04/06/17 at 02:00 Miscellaneous Information 1 ea NOTE XX ; Start 04/05/17 at 21:30 Glucose (Glutose) 15 gm Q15M PRN PO DECREASED GLUCOSE; Start 04/05/17 at 21:30 Glucose (Glutose) 22.5 gm Q15M PRN PO DECREASED GLUCOSE; Start 04/05/17 at 21: 30 Dextrose (D50w Syringe) 25 ml Q15M PRN IV DECREASED GLUCOSE; Start 04/05/17 at 21:30 Dextrose (D50w Syringe) 50 ml Q15M PRN IV DECREASED GLUCOSE; Start 04/05/17 at 21:30 Glucagon (Glucagen) 1 mg Q15M PRN IM DECREASED GLUCOSE; Start 04/05/17 at 21:30 Glucose (Glutose) 15 gm Q15M PRN BUCCAL DECREASED GLUCOSE; Start 04/05/17 at 21 :30 ELIANA NEELY MD Apr 06, 2017 10:29
[2017-04-06] MEDS ORDERED: FOLI-49 PO (16:55)
[2017-04-06] MEDS ORDERED: METO-429 PO (16:55)
[2017-04-06] MEDS ORDERED: CLON-379 PO (16:55)
[2017-04-06] MEDS ORDERED: ASPI-664 PO (16:55)
[2017-04-06] MEDS ORDERED: CALC667T2 PO (16:55)
[2017-04-06] MEDS ORDERED: HYDR-3672 PO (16:55)
--- NOTE | 2017-04-06 21:07 | RADRPT ---
PROCEDURE: Ventilation-perfusion scan CLINICAL INDICATION: Shortness of breath. TECHNIQUE: The lung perfusion scan is performed following the intravenous injection of 4 mCi techn etium 99m MAA and 8 standard imaging projections are acquired. The lung ventilation scan is performed following the inhalation of 1 mCi technetium 99m DTPA aerosol and 8 imaging projections are acquired. The images are submitted to the PACS for review. COMPARISON: Chest x-ray 04/05/2017. FINDINGS: Matching defects within the right greater than left upper lobe are present, otherwise no mismatched defects to suggest pulmonary embolism. There is retained aerosol within the central bronchi most c onsistent with chronic obstructive pulmonary disease RPTAT:HJJR IMPRESSION: 1. Matching upper lobe defects on the ventilation and perfusion study with retained aerosol pattern consistent with chronic obstructive pulmonary disease, findings consistent with a low probability fo r pulmonary embolism. Physician Casie Date Time Electronically viewed and signed by Physician Casie on 04/06/2017 21:06 /
[2017-04-06] MEDS: INSULIN DETEMIR [LEVEMIR] 3ML CART SC SCH (22:11)
[2017-04-07] VITALS (13 sets, daily range): BP systolic 121–187; BP diastolic 57–89; PULSE 66–94; RESP 16–20
[2017-04-07] MEDS: ACCU-CHEK XX SCH ×2 (01:18→02:12)
[2017-04-07] MEDS: INSULIN ASPART [NOVOLOG] 3 ML PEN SC SCH ×7 (07:55→21:00)
[2017-04-07] MEDS ORDERED: ALBUTEROL/IPRATROPIUM (NEB) 3 ML AMP HHN STA (09:23)
[2017-04-07] MEDS: FAMOTIDINE 20 MG TAB PO SCH (09:56)
[2017-04-07] MEDS: METOPROLOL 50 MG TAB PO SCH ×2 (09:56→20:50)
[2017-04-07] MEDS: HEPARIN 5,000 UNIT/0.5 ML VIAL SC SCH ×2 (09:57→20:58)
--- NOTE | 2017-04-07 14:06 | PN ---
JANE MARIE 04/07/17 1406: Date/Time of Note Date/Time of Note DATE: 04/07/17 TIME: 14:04 Assessment/Plan VTE Prophylaxis VTE Prophylaxis Intervention: ambulation Lines/Catheters IV Catheter Type (from Nrsg): Saline Lock Assessment/Plan Chief Complaint/Hosp Course 1. SOB, resolving 2. Hypertension, controlled. 3. End-stage renal disease, on hemodialysis. 4. Diabetes mellitus type II, controlled. 5. Hypercholesteremia. 6. History of pacemaker placement 7. Hyperphosphatemia 8. Anemia 9. Overweight 10. SIRS Problems: Assessment/Plan 1. Dr Musa for the ID consult Subjective 24 Hr Interval Summary Constitutional: improved, no complaints Respiratory: no complaints Cardiovascular: no complaints Gastrointestinal: no complaints Genitourinary: no complaints Exam/Review of Systems Vital Signs Vitals Vital Signs Date Time Temp Pulse Resp B/P Pulse Ox O2 Delivery O2 Flow Rate FiO2 04/07/17 12:14 84 04/07/17 11:36 98.1 20 139/63 98 04/07/17 10:43 2.0 04/07/17 10:41 Nasal Cannula Intake and Output 04/06/17 04/06/17 04/07/17 15:00 23:00 07:00 Intake Total 1100 ml Output Total 3002 ml Balance -1902 ml Exam Constitutional: oriented Neck: supple Respiratory: clear to auscultation Cardiovascular: regular rate and rhythm Results Result Diagram: 04/06/17 0621 04/06/17 0621 Results 24 hrs Laboratory Tests Test 04/06/17 17:30 04/06/17 22:01 04/07/17 01:38 04/07/17 08:36 Bedside Glucose 108 193 140 124 Test 04/07/17 11:46 Bedside Glucose 125 Medications Medications Current Medications Ondansetron HCl (Zofran Inj) 4 mg Q6H PRN IV NAUSEA AND/OR VOMITING; Start at 08:30 Acetaminophen (Tylenol Tab) 650 mg Q6H PRN PO PAIN LEVEL 1-3 OR FEVER; Start at 08:30 Acetaminophen/ Hydrocodone Bitart ([place] (5/325)) 1 tab Q6H PRN PO MODERATE PAIN LEVEL 4-6; Start 04/05/17 at 08:30 Oxycodone/ Acetaminophen (Percocet (5/ 325)) 2 tab Q6H PRN PO SEVERE PAIN LEVEL 7-10; Start 04/05/17 at 08:30 Docusate Sodium (Colace) 100 mg Q12H PRN PO CONSTIPATION; Start 04/05/17 at 08: 30 Zolpidem Tartrate (Ambien) 5 mg QHS PRN PO SLEEP; Start 04/05/17 at 08:30 Heparin Sodium (Porcine) (Heparin (5000 Units/0.5 ml)) 5,000 unit Q12 SC Last administered on 04/07/17 09:57; Admin Dose 5,000 UNIT; Start 04/05/17 at 09:00 Diagnostic Test (Pha) (Accu-Chek) 1 ea 02 XX Last administered on 04/07/17 02: 12; Admin Dose 1 EA; Start 04/06/17 at 02:00 Miscellaneous Information 1 ea NOTE XX ; Start 04/05/17 at 21:30 Glucose (Glutose) 15 gm Q15M PRN PO DECREASED GLUCOSE; Start 04/05/17 at 21:30 Glucose (Glutose) 22.5 gm Q15M PRN PO DECREASED GLUCOSE; Start 04/05/17 at 21: 30 Dextrose (D50w Syringe) 25 ml Q15M PRN IV DECREASED GLUCOSE; Start 04/05/17 at 21:30 Dextrose (D50w Syringe) 50 ml Q15M PRN IV DECREASED GLUCOSE; Start 04/05/17 at 21:30 Glucagon (Glucagen) 1 mg Q15M PRN IM DECREASED GLUCOSE; Start 04/05/17 at 21:30 Glucose (Glutose) 15 gm Q15M PRN BUCCAL DECREASED GLUCOSE; Start 04/05/17 at 21 :30 Famotidine (Pepcid) 20 mg DAILY PO Last administered on 04/07/17 09:56; Admin Dose 20 MG; Start 04/07/17 at 09:00 Insulin Detemir (Levemir) 18 unit HS SC Last administered on 04/06/17 22:11; Admin Dose 18 UNIT; Start 04/06/17 at 21:00 Hydralazine HCl (Apresoline) 75 mg TID PO Last administered on 04/07/17 13:20; Admin Dose 75 MG; Start 04/07/17 at 09:30 Metoprolol Tartrate (Lopressor) 50 mg BID PO Last administered on 04/07/17t 09: 56; Admin Dose 50 MG; Start 04/07/17 at 09:30 ELIANA NEELY MD 04/07/17 1449: Assessment/Plan Assessment/Plan Assessment/Plan Bronchitis/CHF Nebs, HD tmw, abx Exam/Review of Systems Results Result Diagram: 04/06/17 0621 04/06/17 0621 JANE MARIE Apr 07, 2017 14:06 ELIANA NEELY MD Apr 07, 2017 14:49
[2017-04-07] MEDS: AZITHROMYCIN 250 MG in SOD CHLORIDE 0.9% 250 ML IVPB SCH (15:53)
[2017-04-07] MEDS: IPRATROPIUM (NEB) 0.5 MG/2.5 ML AMP HHN SCH (19:13)
[2017-04-07] MEDS: ALBUTEROL 0.083% (NEB) 2.5 MG/3 ML AMP HHN SCH (19:13)
[2017-04-07] MEDS: INSULIN DETEMIR [LEVEMIR] 3ML CART SC SCH (20:59)
[2017-04-08] VITALS (19 sets, daily range): BP systolic 127–162; BP diastolic 60–80; PULSE 65–77; RESP 16–20
[2017-04-08] MEDS: IPRATROPIUM (NEB) 0.5 MG/2.5 ML AMP HHN SCH ×4 (01:13→19:53)
[2017-04-08] MEDS: ALBUTEROL 0.083% (NEB) 2.5 MG/3 ML AMP HHN SCH ×4 (01:14→19:53)
[2017-04-08] MEDS: ACCU-CHEK XX SCH (02:48)
[2017-04-08 06:56] LABS: BASOPHILS % 0.2 % (0.0-2.0); EOSINOPHILS # 0.6 10^3/ul (0.0-0.5); EOSINOPHILS % 6.9 % (0.0-7.0); HEMATOCRIT 33.2 % (37.0-47.0); LYMPHOCYTES # 1.6 10^3/ul (0.8-2.9); LYMPHOCYTES % 17.9 % (15.0-51.0); MEAN CORPUSCULAR HEMOGLOBIN 31.8 pg (29.0-33.0); MEAN CORPUSCULAR HGB CONC 33.1 g/dl (32.0-37.0); MEAN PLATELET VOLUME 10.5 fl (7.4-10.4); MONOCYTE # 1.2 10^3/ul (0.3-0.9); MONOCYTES % 13.8 % (0.0-11.0); NEUTROPHILS % 60.7 % (39.0-77.0); PLATELET COUNT 184 10^3/UL (140-415); RED BLOOD COUNT 3.46 10^6/ul (4.20-5.40); WHITE BLOOD COUNT 8.7 10^3/ul (4.8-10.8)
[2017-04-08 07:22] LABS: CALCIUM 9.1 mg/dl (8.4-10.2); CREATININE 9.44 mg/dl (0.44-1.00); POTASSIUM 4.7 mmol/L (3.5-5.1)
[2017-04-08] MEDS: METOPROLOL 50 MG TAB PO SCH ×2 (09:04→21:33)
[2017-04-08] MEDS: FAMOTIDINE 20 MG TAB PO SCH (09:05)
[2017-04-08] MEDS: INSULIN ASPART [NOVOLOG] 3 ML PEN SC SCH ×7 (09:08→21:00)
[2017-04-08] MEDS: HEPARIN 5,000 UNIT/0.5 ML VIAL SC SCH ×2 (09:10→21:41)
--- NOTE | 2017-04-08 13:07 | PN ---
Date/Time of Note Date/Time of Note DATE: 04/08/17 TIME: 13:06 Assessment/Plan VTE Prophylaxis VTE Prophylaxis Intervention: ambulation Lines/Catheters IV [facility] Saline Lock Assessment/Plan Chief Complaint/Hosp Course 1. SOB, resolved 2. Hypertension, controlled. 3. End-stage renal disease, on hemodialysis. 4. Diabetes mellitus type II, controlled. 5. Hypercholesteremia. 6. History of pacemaker placement 7. Hyperphosphatemia 8. Anemia 9. Overweight 10. SIRS, resolved Problems: Assessment/Plan 1. HD pending later today 2. Possible d/c home Subjective 24 Hr Interval Summary Constitutional: improved, no complaints Exam/Review of Systems Vital Signs Vitals Vital Signs Date Time Temp Pulse Resp B/P Pulse Ox O2 Delivery O2 Flow Rate FiO2 04/08/17 12:28 68 04/08/17 11:30 98.2 18 151/72 95 04/08/17 07:44 Nasal Cannula 2.0 Intake and Output 04/07/17 04/07/17 04/08/17 15:00 23:00 07:00 Intake Total 300 ml 970 ml Balance 300 ml 970 ml Exam Constitutional: alert, oriented Respiratory: clear to auscultation Cardiovascular: regular rate and rhythm Results Result Diagram: 04/08/17 0606 04/08/17 0606 Results 24 hrs Laboratory Tests Test 04/07/17 17:49 04/07/17 20:54 04/08/17 01:29 04/08/17 06:06 Bedside Glucose 112 102 84 White Blood Count 8.7 # Red Blood Count 3.46 L Hemoglobin 11.0 L Hematocrit 33.2 L Mean Corpuscular Volume 96.0 Mean Corpuscular Hemoglobin 31.8 Mean Corpuscular Hemoglobin Concent 33.1 Red Cell Distribution Width 13.0 Platelet Count 184 # Mean Platelet Volume 10.5 H Neutrophils % 60.7 Lymphocytes % 17.9 Monocytes % 13.8 H Eosinophils % 6.9 Basophils % 0.2 Nucleated Red Blood Cells % 0.0 Neutrophils # (Manual) 5.3 Lymphocytes # 1.6 Monocytes # 1.2 H Eosinophils # 0.6 H Basophils # 0.0 Nucleated Red Blood Cells # 0.0 Sodium Level 138 Potassium Level 4.7 Chloride Level 93 L Carbon Dioxide Level 28 Anion Gap 22 H Blood Urea Nitrogen 76 H Creatinine 9.44 H Glucose Level 56 #L Calcium Level 9.1 Test 04/08/17 08:38 04/08/17 12:40 Bedside Glucose 165 107 Medications Medications Current Medications Ondansetron HCl (Zofran Inj) 4 mg Q6H PRN IV NAUSEA AND/OR VOMITING; Start at 08:30 Acetaminophen (Tylenol Tab) 650 mg Q6H PRN PO PAIN LEVEL 1-3 OR FEVER; Start at 08:30 Acetaminophen/ Hydrocodone Bitart ([place] (5/325)) 1 tab Q6H PRN PO MODERATE PAIN LEVEL 4-6; Start 04/05/17 at 08:30 Oxycodone/ Acetaminophen (Percocet (5/ 325)) 2 tab Q6H PRN PO SEVERE PAIN LEVEL 7-10; Start 04/05/17 at 08:30 Docusate Sodium (Colace) 100 mg Q12H PRN PO CONSTIPATION; Start 04/05/17 at 08: 30 Zolpidem Tartrate (Ambien) 5 mg QHS PRN PO SLEEP; Start 04/05/17 at 08:30 Heparin Sodium (Porcine) (Heparin (5000 Units/0.5 ml)) 5,000 unit Q12 SC Last administered on 04/08/17 09:10; Admin Dose 5,000 UNIT; Start 04/05/17 at 09:00 Diagnostic Test (Pha) (Accu-Chek) 1 ea 02 XX Last administered on 04/08/17 02: 48; Admin Dose 1 EA; Start 04/06/17 at 02:00 Miscellaneous Information 1 ea NOTE XX ; Start 04/05/17 at 21:30 Glucose (Glutose) 15 gm Q15M PRN PO DECREASED GLUCOSE; Start 04/05/17 at 21:30 Glucose (Glutose) 22.5 gm Q15M PRN PO DECREASED GLUCOSE; Start 04/05/17 at 21: 30 Dextrose (D50w Syringe) 25 ml Q15M PRN IV DECREASED GLUCOSE; Start 04/05/17 at 21:30 Dextrose (D50w Syringe) 50 ml Q15M PRN IV DECREASED GLUCOSE; Start 04/05/17 at 21:30 Glucagon (Glucagen) 1 mg Q15M PRN IM DECREASED GLUCOSE; Start 04/05/17 at 21:30 Glucose (Glutose) 15 gm Q15M PRN BUCCAL DECREASED GLUCOSE; Start 04/05/17 at 21 :30 Famotidine (Pepcid) 20 mg DAILY PO Last administered on 04/08/17 09:05; Admin Dose 20 MG; Start 04/07/17 at 09:00 Insulin Detemir (Levemir) 18 unit HS SC Last administered on 04/07/17 20:59; Admin Dose 18 UNIT; Start 04/06/17 at 21:00 Hydralazine HCl (Apresoline) 75 mg TID PO Last administered on 04/08/17 09:04; Admin Dose 75 MG; Start 04/07/17 at 09:30 Metoprolol Tartrate 50 mg 50 mg BID PO Last administered on 04/08/17 09:04; Admin Dose 50 MG; Start 04/07/17 at 09:30 Azithromycin/ Sodium Chloride (Zithromax/NS) 250 ml @ 250 mls/hr Q24H IVPB Last administered on 04/07/17 15:53; Admin Dose 250 MLS/HR; Start 04/07/17 at 15: 00 JANE MARIE Apr 08, 2017 13:07
[2017-04-08] MEDS: AZITHROMYCIN 250 MG in SOD CHLORIDE 0.9% 250 ML IVPB SCH (17:10)
--- NOTE | 2017-04-08 18:27 | RADRPT ---
PROCEDURE: XR Chest. CLINICAL INDICATION: Respiratory distress. Cough TECHNIQUE: AP view of the chest was performed. COMPARISON: April 05, 2017 FINDINGS: The heart size is normal with a stable left subclavian dual-chamber pacer. Fluid status appears improved. No pneumothorax or pleural effusion. Improved bibasilar lung infilt rates is also seen. The osseous structures are intact. IMPRESSION: Improved fluid status and bibasilar lung infiltrates. Stable cardiac pacer. RPTAT: QQ. .Gayle San MD, MD Date Time Electronically viewed and signed by .Gayle San MD, on 04/08/2017 18:26 .F/
[2017-04-08] MEDS: CEFTRIAXONE 1 GM/50 ML (PMX) 50 ML IVPB SCH (19:35)
[2017-04-08] MEDS: INSULIN DETEMIR [LEVEMIR] 3ML CART SC SCH (21:42)
[2017-04-09] VITALS (10 sets, daily range): BP systolic 124–153; BP diastolic 59–69; PULSE 71–82; RESP 16–21
[2017-04-09] MEDS: ALBUTEROL 0.083% (NEB) 2.5 MG/3 ML AMP HHN SCH ×4 (01:45→19:32)
[2017-04-09] MEDS: IPRATROPIUM (NEB) 0.5 MG/2.5 ML AMP HHN SCH ×4 (01:45→19:32)
[2017-04-09] MEDS: ACCU-CHEK XX SCH (02:00)
[2017-04-09] MEDS: INSULIN ASPART [NOVOLOG] 3 ML PEN SC SCH ×7 (07:55→21:00)
[2017-04-09] MEDS: METOPROLOL 50 MG TAB PO SCH ×2 (08:29→21:17)
[2017-04-09] MEDS: FAMOTIDINE 20 MG TAB PO SCH (08:29)
[2017-04-09] MEDS: HEPARIN 5,000 UNIT/0.5 ML VIAL SC SCH ×2 (08:35→21:25)
--- NOTE | 2017-04-09 14:14 | PN ---
Date/Time of Note Date/Time of Note DATE: 04/09/17 TIME: 14:13 Assessment/Plan VTE Prophylaxis VTE Prophylaxis Intervention: ambulation Lines/Catheters IV Catheter Type (from Nrsg): Saline Lock Assessment/Plan Chief Complaint/Hosp Course 1. SOB, resolved 2. Hypertension, controlled. 3. End-stage renal disease, on hemodialysis. 4. Diabetes mellitus type II, controlled. 5. Hypercholesteremia. 6. History of pacemaker placement 7. Hyperphosphatemia 8. Anemia 9. Overweight 10. SIRS, resolved Problems: Assessment/Plan 1. ABG on room air Subjective 24 Hr Interval Summary Constitutional: improved, no complaints Exam/Review of Systems Vital Signs Vitals Vital Signs Date Time Temp Pulse Resp B/P Pulse Ox O2 Delivery O2 Flow Rate FiO2 04/09/17 13:33 73 20 97 Nasal Cannula 2.0 04/09/17 11:37 97.4 150/68 Intake and Output 04/08/17 04/08/17 04/09/17 15:00 23:00 07:00 Intake Total 1600 ml 120 ml Output Total 2500 ml Balance -900 ml 120 ml Exam Constitutional: alert, oriented ENMT: nl external ears & nose Neck: supple Cardiovascular: regular rate and rhythm Gastrointestinal: soft Results Result Diagram: 04/08/17 0606 04/08/17 0606 Results 24 hrs Laboratory Tests Test 04/08/17 17:17 04/08/17 21:36 04/09/17 08:35 04/09/17 13:05 Bedside Glucose 144 103 96 111 Medications Medications Current Medications Ondansetron HCl (Zofran Inj) 4 mg Q6H PRN IV NAUSEA AND/OR VOMITING; Start at 08:30 Acetaminophen (Tylenol Tab) 650 mg Q6H PRN PO PAIN LEVEL 1-3 OR FEVER; Start at 08:30 Acetaminophen/ Hydrocodone Bitart ([place] (5/325)) 1 tab Q6H PRN PO MODERATE PAIN LEVEL 4-6; Start 04/05/17 at 08:30 Oxycodone/ Acetaminophen (Percocet (5/ 325)) 2 tab Q6H PRN PO SEVERE PAIN LEVEL 7-10; Start 04/05/17 at 08:30 Docusate Sodium (Colace) 100 mg Q12H PRN PO CONSTIPATION; Start 04/05/17 at 08: 30 Zolpidem Tartrate (Ambien) 5 mg QHS PRN PO SLEEP; Start 04/05/17 at 08:30 Heparin Sodium (Porcine) (Heparin (5000 Units/0.5 ml)) 5,000 unit Q12 SC Last administered on 04/09/17 08:35; Admin Dose 5,000 UNIT; Start 04/05/17 at 09:00 Diagnostic Test (Pha) (Accu-Chek) 1 ea 02 XX Last administered on 04/08/17 02: 48; Admin Dose 1 EA; Start 04/06/17 at 02:00 Miscellaneous Information 1 ea NOTE XX ; Start 04/05/17 at 21:30 Glucose (Glutose) 15 gm Q15M PRN PO DECREASED GLUCOSE; Start 04/05/17 at 21:30 Glucose (Glutose) 22.5 gm Q15M PRN PO DECREASED GLUCOSE; Start 04/05/17 at 21: 30 Dextrose (D50w Syringe) 25 ml Q15M PRN IV DECREASED GLUCOSE; Start 04/05/17 at 21:30 Dextrose (D50w Syringe) 50 ml Q15M PRN IV DECREASED GLUCOSE; Start 04/05/17 at 21:30 Glucagon (Glucagen) 1 mg Q15M PRN IM DECREASED GLUCOSE; Start 04/05/17 at 21:30 Glucose (Glutose) 15 gm Q15M PRN BUCCAL DECREASED GLUCOSE; Start 04/05/17 at 21 :30 Famotidine (Pepcid) 20 mg DAILY PO Last administered on 04/09/17 08:29; Admin Dose 20 MG; Start 04/07/17 at 09:00 Insulin Detemir (Levemir) 18 unit HS SC Last administered on 04/08/17 21:42; Admin Dose 18 UNIT; Start 04/06/17 at 21:00 Hydralazine HCl (Apresoline) 75 mg TID PO Last administered on 04/09/17 13:15; Admin Dose 75 MG; Start 04/07/17 at 09:30 Metoprolol Tartrate 50 mg 50 mg BID PO Last administered on 04/09/17 08:29; Admin Dose 50 MG; Start 04/07/17 at 09:30 Azithromycin 250 mg/Sodium Chloride 250 ml @ 250 mls/hr Q24H IVPB Last administered on 04/08/17 17:10; Admin Dose 250 MLS/HR; Start 04/07/17 at 15:00 Ceftriaxone Sodium (Rocephin) 50 ml @ 100 mls/hr Q24H IVPB Last administered on 04/08/17 19:35; Admin Dose 100 MLS/HR; Start 04/08/17 at 18:00 JANE MARIE Apr 09, 2017 14:14
[2017-04-09] MEDS: AZITHROMYCIN 250 MG in SOD CHLORIDE 0.9% 250 ML IVPB SCH (15:25)
[2017-04-09] MEDS: CEFTRIAXONE 1 GM/50 ML (PMX) 50 ML IVPB SCH (17:39)
[2017-04-09 18:20] LABS: Allen Test ACCEPTAB; Arterial Base Excess 1.4 mmol/L (-3.0-3); Arterial COHb 0.4 % (0.0-3.0); Arterial Fraction of Oxyhgb 88.8 % (93.0-99.0); Arterial HCO3 26.4 mmol/L (22.0-26.0); Arterial MetHb 0.1 % (0.0-1.5); Arterial Total Hemglobin 13.1 g/dl (12.0-18.0); MODE ROOM AIR
[2017-04-09] MEDS: INSULIN DETEMIR [LEVEMIR] 3ML CART SC SCH (21:25)
[2017-04-10] VITALS (19 sets, daily range): BP systolic 112–155; BP diastolic 57–85; PULSE 68–90; RESP 17–20
[2017-04-10] MEDS: ALBUTEROL 0.083% (NEB) 2.5 MG/3 ML AMP HHN SCH ×4 (01:40→19:38)
[2017-04-10] MEDS: IPRATROPIUM (NEB) 0.5 MG/2.5 ML AMP HHN SCH ×4 (01:40→19:38)
[2017-04-10] MEDS: ACCU-CHEK XX SCH (02:00)
[2017-04-10 07:14] LABS: BASOPHILS % 0.6 % (0.0-2.0); EOSINOPHILS # 0.7 10^3/ul (0.0-0.5); EOSINOPHILS % 10.2 % (0.0-7.0); HEMATOCRIT 33.7 % (37.0-47.0); HEMOGLOBIN 11.1 g/dl (12.0-16.0); LYMPHOCYTES # 1.6 10^3/ul (0.8-2.9); LYMPHOCYTES % 21.8 % (15.0-51.0); MEAN CORPUSCULAR HEMOGLOBIN 31.6 pg (29.0-33.0); MEAN CORPUSCULAR HGB CONC 32.9 g/dl (32.0-37.0); MEAN PLATELET VOLUME 10.5 fl (7.4-10.4); MONOCYTE # 1.3 10^3/ul (0.3-0.9); MONOCYTES % 17.8 % (0.0-11.0); NEUTROPHILS % 48.5 % (39.0-77.0); PLATELET COUNT 216 10^3/UL (140-415); RED BLOOD COUNT 3.51 10^6/ul (4.20-5.40); WHITE BLOOD COUNT 7.3 10^3/ul (4.8-10.8)
[2017-04-10 07:28] LABS: CALCIUM 9.3 mg/dl (8.4-10.2); CREATININE 9.76 mg/dl (0.44-1.00)
[2017-04-10] MEDS: INSULIN ASPART [NOVOLOG] 3 ML PEN SC SCH ×7 (08:40→21:00)
[2017-04-10] MEDS: FAMOTIDINE 20 MG TAB PO SCH (09:23)
[2017-04-10] MEDS: METOPROLOL 50 MG TAB PO SCH ×2 (09:23→21:05)
[2017-04-10] MEDS: HEPARIN 5,000 UNIT/0.5 ML VIAL SC SCH ×2 (09:26→21:16)
--- NOTE | 2017-04-10 12:02 | PN ---
Date/Time of Note Date/Time of Note DATE: 04/10/17 TIME: 11:59 Assessment/Plan VTE Prophylaxis VTE Prophylaxis Intervention: heparin Lines/Catheters IV [facility]from [facility] Saline Lock Urinary Cath still in place: No Assessment/Plan Chief Complaint/Hosp Course 66 y/o with # SOB likely due to CHF/ Bronchitis , V/Q scan negative. Hypoxia+ on ABG # Hypertension. # End-stage renal disease, on hemodialysis. # Diabetes. # Hypercholesteremia. # History of pacemaker placement # Hyperphosphetemia # Anemia Recs - HD today - c/w nebs and iv rocephin and azithromycin - CT chest pending - check 02 sats with ambulation , based on results will order home oxygen - GI/DVT prophylaxsis Problems: Subjective 24 Hr Interval Summary Free Text/Dictation Sob improving HD today Exam/Review of Systems Vital Signs Vitals Vital Signs Date Time Temp Pulse Resp B/P Pulse Ox O2 Delivery O2 Flow Rate FiO2 04/10/17 08:13 74 04/10/17 08:10 Nasal Cannula 2.0 04/10/17 07:38 18 98 04/10/17 07:26 98.0 146/81 Intake and Output 04/09/17 04/09/17 04/10/17 15:00 23:00 07:00 Intake Total 350 ml 240 ml Balance 350 ml 240 ml Exam Gen:Awake,alert Neck:supple Lungs: few b/l rhonchi Abdomen:soft, non tender ext: no edema Results Result Diagram: 04/10/17 0627 04/10/17 0627 Results 24 hrs Laboratory Tests Test 04/09/17 13:05 04/09/17 14:17 04/09/17 17:29 04/09/17 21:21 Bedside Glucose 111 151 100 Blood Gas Specimen Source Blood arterial Arterial Blood Date Drawn 04/09/2017 6:10:25 PM Arterial Blood pH (Temp corrected) 7.402 Arterial Blood pCO2 (Temp correct) 43.4 Arterial Blood pO2 (Temp corrected) 57.8 L Arterial Blood HCO3 26.4 H Arterial Blood Base Excess 1.4 Arterial Blood Oxygen Saturation 89.2 L [place] Test ACCEPTAB Arterial Blood Gas Puncture Site Left Radial Arterial Blood Carboxyhemoglobin 0.4 Arterial Blood Methemoglobin 0.1 Blood Gas A-a O2 Differential 40.0 H Oxyhemoglobin Percent 88.8 L Total Hemoglobin 13.1 Blood Gas Temperature 37.0 Blood Gas Modality ROOM AIR FiO2 21.0 Blood Gas Notified Whom CW Blood Gas Notified Time 04/09/2017 6:19:36 PM Test 04/10/17 06:27 04/10/17 08:24 White Blood Count 7.3 Red Blood Count 3.51 L Hemoglobin 11.1 L Hematocrit 33.7 L Mean Corpuscular Volume 96.0 Mean Corpuscular Hemoglobin 31.6 Mean Corpuscular Hemoglobin Concent 32.9 Red Cell Distribution Width 13.0 Platelet Count 216 Mean Platelet Volume 10.5 H Neutrophils % 48.5 Lymphocytes % 21.8 Monocytes % 17.8 H Eosinophils % 10.2 H Basophils % 0.6 Nucleated Red Blood Cells % 0.0 Neutrophils # (Manual) 3.5 Lymphocytes # 1.6 Monocytes # 1.3 H Eosinophils # 0.7 H Basophils # 0.0 Nucleated Red Blood Cells # 0.0 Sodium Level 139 Potassium Level 5.0 Chloride Level 98 Carbon Dioxide Level 25 Anion Gap 21 H Blood Urea Nitrogen 75 H Creatinine 9.76 H Glucose Level 86 Calcium Level 9.3 Bedside Glucose 113 Medications Medications Current Medications Ondansetron HCl (Zofran Inj) 4 mg Q6H PRN IV NAUSEA AND/OR VOMITING; Start at 08:30 Acetaminophen (Tylenol Tab) 650 mg Q6H PRN PO PAIN LEVEL 1-3 OR FEVER; Start at 08:30 Acetaminophen/ Hydrocodone Bitart ([place] (5/325)) 1 tab Q6H PRN PO MODERATE PAIN LEVEL 4-6; Start 04/05/17 at 08:30 Oxycodone/ Acetaminophen (Percocet (5/ 325)) 2 tab Q6H PRN PO SEVERE PAIN LEVEL 7-10; Start 04/05/17 at 08:30 Docusate Sodium (Colace) 100 mg Q12H PRN PO CONSTIPATION; Start 04/05/17 at 08: 30 Zolpidem Tartrate (Ambien) 5 mg QHS PRN PO SLEEP; Start 04/05/17 at 08:30 Heparin Sodium (Porcine) (Heparin (5000 Units/0.5 ml)) 5,000 unit Q12 SC Last administered on 04/10/17t 09:26; Admin Dose 5,000 UNIT; Start 04/05/17 at 09:00 Diagnostic Test (Pha) (Accu-Chek) 1 ea 02 XX Last administered on 04/08/17 02: 48; Admin Dose 1 EA; Start 04/06/17 at 02:00 Miscellaneous Information 1 ea NOTE XX ; Start 04/05/17 at 21:30 Glucose (Glutose) 15 gm Q15M PRN PO DECREASED GLUCOSE; Start 04/05/17 at 21:30 Glucose (Glutose) 22.5 gm Q15M PRN PO DECREASED GLUCOSE; Start 04/05/17 at 21: 30 Dextrose (D50w Syringe) 25 ml Q15M PRN IV DECREASED GLUCOSE; Start 04/05/17 at 21:30 Dextrose (D50w Syringe) 50 ml Q15M PRN IV DECREASED GLUCOSE; Start 04/05/17 at 21:30 Glucagon (Glucagen) 1 mg Q15M PRN IM DECREASED GLUCOSE; Start 04/05/17 at 21:30 Glucose (Glutose) 15 gm Q15M PRN BUCCAL DECREASED GLUCOSE; Start 04/05/17 at 21 :30 Famotidine (Pepcid) 20 mg DAILY PO Last administered on 04/10/17 09:23; Admin Dose 20 MG; Start 04/07/17 at 09:00 Insulin Detemir (Levemir) 18 unit HS SC Last administered on 04/09/17 21:25; Admin Dose 18 UNIT; Start 04/06/17 at 21:00 Hydralazine HCl (Apresoline) 75 mg TID PO Last administered on 04/10/17 09:22; Admin Dose 75 MG; Start 04/07/17 at 09:30 Metoprolol Tartrate 50 mg 50 mg BID PO Last administered on 04/10/17 09:23; Admin Dose 50 MG; Start 04/07/17 at 09:30 Azithromycin 250 mg/Sodium Chloride 250 ml @ 250 mls/hr Q24H IVPB Last administered on 04/09/17 15:25; Admin Dose 250 MLS/HR; Start 04/07/17 at 15:00 Ceftriaxone Sodium (Rocephin) 50 ml @ 100 mls/hr Q24H IVPB Last administered on 04/09/17 17:39; Admin Dose 100 MLS/HR; Start 04/08/17 at 18:00 ELIANA NEELY MD Apr 10, 2017 12:02
--- NOTE | 2017-04-10 15:00 | RADRPT ---
PROCEDURE: CT Chest without contrast (high resolution). CLINICAL INDICATION: Dyspnea. Rule out fibrosis. TECHNIQUE: High-resolution CT scan of the chest without contrast was performed on a high-Planitaxutio n multidetector CT scanner. The patient was scanned without intravenous contrast. Coronal and sagi ttal reformatted images were obtained from the axial source images. Patient was examined during bot h deep inspiration and full expiration. Images were reviewed on a high resolution PACS workstation. The total exam CTDI equals 9.54 and the total exam DLP equals 413.35 mGy-cm. One or more of the following dose reduction techniques were used: - Automated exposure control. - Adjustment of the mA and/or kV according to patient size. - Use of iterative reconstruction technique. COMPARISON: Chest x-ray 04/08/2017; CT scan abdomen 03/08/2015 FINDINGS: Benign scattered inflammatory bronchiolitis is seen within the lower lungs bilaterally. Benign scat tered chronic inflammatory bronchoceles are seen within the lungs bilaterally. Large calcified gran uloma is seen in the superior segment of the left lower lung. Scarring and pleural thickening is se en in the posteromedial left lung base. There is marked hyperinflation within the upper lung region s bilaterally. Bronchiectasis with associated bronchial wall thickening is seen involving the centr al airways, chronic in nature. No pleural effusion or pulmonary edema or pneumothorax is present. The central tracheobronchial tree is clear. The mediastinum is unremarkable without evidence for mass or lymphadenopathy. Abundant small shoddy reactive lymph nodes are seen scattered The vascular structures of the mediastinum are normal in co urse and caliber. Aortic vascular calcifications and coronary artery calcifications are present. T he heart size is normal without evidence for pericardial thickening or effusion. Pacemaker wires are seen in place. The axillary regions, subpectoral regions, and supraclavicular regions are remarkable for abundant s cattered shoddy reactive adenopathy within the right axillary and subpectoral carlos stations. The th yroid gland is enlarged and heterogeneous in appearance. Imaging obtained through the upper abdomen reveals no acute abnormality. The adrenal glands are symmetrically unremarkable. The surrounding os seous structures are remarkable for moderate degenerative enthesopathy of the spine. No osteolytic or osteoblastic lesion is detected. Left upper pacemaker pulse generator is seen in the left upper a nterior chest wall. IMPRESSION: 1. Scattered inflammatory bronchiolitis and bronchopneumonia within the lower lungs bilaterally. 2. Central airway bronchiectasis with associated bronchial wall thickening, chronic in nature. 3. Hyperinflated upper lung regions bilaterally consistent with chronic air trapping. 4. Benign scattered inflammatory bronchoceles within the lungs. 5. Dense atelectasis and scarring within the lung bases bilaterally. 6. No effusion, edema, or pneumothorax is present. 7. Small shoddy reactive lymph nodes throughout the mediastinum. 8. Similar appearing small shoddy reactive nodes within the right axillary and subpectoral space. 9. Benign chronic senescent changes seen elsewhere throughout the remainder of the study. RPTAT: HMJB .Amaury Melton MD, MD Date Time Electronically viewed and signed by .Amaury Melton MD, on 04/10/2017 15:00 .B/
[2017-04-10] MEDS: AZITHROMYCIN 250 MG in SOD CHLORIDE 0.9% 250 ML IVPB SCH (15:17)
[2017-04-10] MEDS: CEFTRIAXONE 1 GM/50 ML (PMX) 50 ML IVPB SCH (17:56)
[2017-04-10] MEDS: INSULIN DETEMIR [LEVEMIR] 3ML CART SC SCH (21:17)
[2017-04-11] VITALS (13 sets, daily range): BP systolic 125–162; BP diastolic 58–73; PULSE 70–120; RESP 18–20
[2017-04-11] MEDS: ALBUTEROL 0.083% (NEB) 2.5 MG/3 ML AMP HHN SCH ×4 (01:58→20:45)
[2017-04-11] MEDS: IPRATROPIUM (NEB) 0.5 MG/2.5 ML AMP HHN SCH ×4 (01:58→20:45)
[2017-04-11] MEDS: ACCU-CHEK XX SCH (02:00)
[2017-04-11] MEDS: INSULIN ASPART [NOVOLOG] 3 ML PEN SC SCH ×7 (08:34→21:00)
[2017-04-11] MEDS: METOPROLOL 50 MG TAB PO SCH ×2 (09:08→20:51)
[2017-04-11] MEDS: FAMOTIDINE 20 MG TAB PO SCH (09:08)
[2017-04-11] MEDS: HEPARIN 5,000 UNIT/0.5 ML VIAL SC SCH ×2 (09:14→20:55)
[2017-04-11] MEDS: AZITHROMYCIN 250 MG in SOD CHLORIDE 0.9% 250 ML IVPB SCH (15:02)
[2017-04-11] MEDS: CEFTRIAXONE 1 GM/50 ML (PMX) 50 ML IVPB SCH (18:00)
--- NOTE | 2017-04-11 19:31 | PN ---
Date/Time of Note Date/Time of Note DATE: 04/11/17 TIME: 19:30 Assessment/Plan VTE Prophylaxis VTE Prophylaxis Intervention: other Lines/Catheters IV Catheter Type (from Nrs): Saline Lock Urinary Cath still in place: No Assessment/Plan Chief Complaint/Hosp Course # Hypertension. # End-stage renal disease, on hemodialysis. # Diabetes. # Hypercholesteremia. # History of pacemaker placement # Hyperphosphetemia # Anemia pneumonia bronchites bronchiectasis plan pul called hd antibiotic Problems: Subjective 24 Hr Interval Summary Subjective hx not possible: other (still sob+) Exam/Review of Systems Vital Signs Vitals Vital Signs Date Time Temp Pulse Resp B/P Pulse Ox O2 Delivery O2 Flow Rate FiO2 04/11/17 16:19 70 04/11/17 16:01 97.6 18 136/63 99 04/11/17 13:09 Nasal Cannula 2.0 04/11/17 01:58 21 Intake and Output 04/10/17 04/10/17 04/11/17 15:00 23:00 07:00 Intake Total 300 ml 1000 ml 400 ml Output Total 3300 ml 200 ml Balance -3000 ml 800 ml 400 ml Exam ENMT: nl external ears & nose Neck: supple Respiratory: congested cough (+), diminished breath sounds Cardiovascular: regular rate and rhythm Gastrointestinal: bowel sounds (+), soft Results Result Diagram: 04/10/1762604/10/17 06 Results 24 hrs Laboratory Tests Test 04/10/17 21:11 04/11/17 08:28 04/11/17 12:53 04/11/17 17:37 Bedside Glucose 106 167 118 141 Medications Medications Current Medications Ondansetron HCl (Zofran Inj) 4 mg Q6H PRN IV NAUSEA AND/OR VOMITING; Start at 08:30 Acetaminophen (Tylenol Tab) 650 mg Q6H PRN PO PAIN LEVEL 1-3 OR FEVER; Start at 08:30 Acetaminophen/ Hydrocodone Bitart ([place] (5/325)) 1 tab Q6H PRN PO MODERATE PAIN LEVEL 4-6; Start 04/05/17 at 08:30 Oxycodone/ Acetaminophen (Percocet (5/ 325)) 2 tab Q6H PRN PO SEVERE PAIN LEVEL 7-10; Start 04/05/17 at 08:30 Docusate Sodium (Colace) 100 mg Q12H PRN PO CONSTIPATION; Start 04/05/17 at 08: 30 Zolpidem Tartrate (Ambien) 5 mg QHS PRN PO SLEEP; Start 04/05/17 at 08:30 Heparin Sodium (Porcine) (Heparin (5000 Units/0.5 ml)) 5,000 unit Q12 SC Last administered on 04/11/17 09:14; Admin Dose 5,000 UNIT; Start 04/05/17 at 09:00 Diagnostic Test (Pha) (Accu-Chek) 1 ea 02 XX Last administered on 04/08/17 02: 48; Admin Dose 1 EA; Start 04/06/17 at 02:00 Miscellaneous Information 1 ea NOTE XX ; Start 04/05/17 at 21:30 Glucose (Glutose) 15 gm Q15M PRN PO DECREASED GLUCOSE; Start 04/05/17 at 21:30 Glucose (Glutose) 22.5 gm Q15M PRN PO DECREASED GLUCOSE; Start 04/05/17 at 21: 30 Dextrose (D50w Syringe) 25 ml Q15M PRN IV DECREASED GLUCOSE; Start 04/05/17 at 21:30 Dextrose (D50w Syringe) 50 ml Q15M PRN IV DECREASED GLUCOSE; Start 04/05/17 at 21:30 Glucagon (Glucagen) 1 mg Q15M PRN IM DECREASED GLUCOSE; Start 04/05/17 at 21:30 Glucose (Glutose) 15 gm Q15M PRN BUCCAL DECREASED GLUCOSE; Start 04/05/17 at 21 :30 Famotidine (Pepcid) 20 mg DAILY PO Last administered on 04/11/17 09:08; Admin Dose 20 MG; Start 04/07/17 at 09:00 Insulin Detemir (Levemir) 18 unit HS SC Last administered on 04/10/17 21:17; Admin Dose 18 UNIT; Start 04/06/17 at 21:00 Hydralazine HCl (Apresoline) 75 mg TID PO Last administered on 04/11/17 12:55; Admin Dose 75 MG; Start 04/07/17 at 09:30 Metoprolol Tartrate 50 mg 50 mg BID PO Last administered on 04/11/17 09:08; Admin Dose 50 MG; Start 04/07/17 at 09:30 Azithromycin 250 mg/Sodium Chloride 250 ml @ 250 mls/hr Q24H IVPB Last administered on 04/11/17 15:02; Admin Dose 250 MLS/HR; Start 04/07/17 at 15:00 Ceftriaxone Sodium (Rocephin) 50 ml @ 100 mls/hr Q24H IVPB Last administered on 04/10/17 17:56; Admin Dose 100 MLS/HR; Start 04/08/17 at 18:00 JEFF RAMOS MD Apr 11, 2017 19:31
[2017-04-11] MEDS: INSULIN DETEMIR [LEVEMIR] 3ML CART SC SCH (21:20)
[2017-04-12] VITALS (19 sets, daily range): BP systolic 98–162; BP diastolic 53–80; PULSE 67–97; RESP 18–20
--- NOTE | 2017-04-12 01:25 | PN ---
Date/Time of Note Date/Time of Note DATE: 04/12/17 TIME: 01:12 Assessment/Plan VTE Prophylaxis VTE Prophylaxis Intervention: heparin Lines/Catheters IV Catheter Type (from Nrs): Saline Lock Urinary Cath still in place: No Assessment/Plan Assessment/Plan 1. Admission (6 days) for dyspnea due to CHF decompensation. 2. CHF symptoms due to abnormal intravascular fluid due to ESRD. 3. End-stage renal disease, on hemodialysis. 4. Diabetes. 5. Hypertension. 6. Hypercholesteremia. 7. Dual chamber pacemaker in situ. Echocardiogram reviewed. Plan / Recs: Per the admitting physician. TRES CHEN MD Subjective 24 Hr Interval Summary Constitutional: no complaints Eyes: no complaints ENT: no complaints Respiratory: no complaints Cardiovascular: no complaints Gastrointestinal: no complaints Genitourinary: no complaints Exam/Review of Systems Vital Signs Vitals Vital Signs Date Time Temp Pulse Resp B/P Pulse Ox O2 Delivery O2 Flow Rate FiO2 04/12/17 00:12 98.7 77 20 131/80 96 04/11/17 20:45 Nasal Cannula 2.0 04/11/17 01:58 21 Exam Constitutional: well developed Head: atraumatic, normocephalic Neck: supple Cardiovascular: regular rate and rhythm Gastrointestinal: soft Results Result Diagram: 04/10/17 0627 04/10/1727 Results 24 hrs Laboratory Tests Test 04/11/17 08:28 04/11/17 12:53 04/11/17 17:37 04/11/17 20:48 Bedside Glucose 167 118 141 82 Medications Medications Current Medications Ondansetron HCl (Zofran Inj) 4 mg Q6H PRN IV NAUSEA AND/OR VOMITING; Start at 08:30 Acetaminophen (Tylenol Tab) 650 mg Q6H PRN PO PAIN LEVEL 1-3 OR FEVER; Start at 08:30 Acetaminophen/ Hydrocodone Bitart ([place] (5/325)) 1 tab Q6H PRN PO MODERATE PAIN LEVEL 4-6; Start 04/05/17 at 08:30 Oxycodone/ Acetaminophen (Percocet (5/ 325)) 2 tab Q6H PRN PO SEVERE PAIN LEVEL 7-10; Start 04/05/17 at 08:30 Docusate Sodium (Colace) 100 mg Q12H PRN PO CONSTIPATION; Start 04/05/17 at 08: 30 Zolpidem Tartrate (Ambien) 5 mg QHS PRN PO SLEEP; Start 04/05/17 at 08:30 Heparin Sodium (Porcine) (Heparin (5000 Units/0.5 ml)) 5,000 unit Q12 SC Last administered on 04/11/17 20:55; Admin Dose 5,000 UNIT; Start 04/05/17 at 09:00 Diagnostic Test (Pha) (Accu-Chek) 1 ea 02 XX Last administered on 04/08/17 02: 48; Admin Dose 1 EA; Start 04/06/17 at 02:00 Miscellaneous Information 1 ea NOTE XX ; Start 04/05/17 at 21:30 Glucose (Glutose) 15 gm Q15M PRN PO DECREASED GLUCOSE; Start 04/05/17 at 21:30 Glucose (Glutose) 22.5 gm Q15M PRN PO DECREASED GLUCOSE; Start 04/05/17 at 21: 30 Dextrose (D50w Syringe) 25 ml Q15M PRN IV DECREASED GLUCOSE; Start 04/05/17 at 21:30 Dextrose (D50w Syringe) 50 ml Q15M PRN IV DECREASED GLUCOSE; Start 04/05/17 at 21:30 Glucagon (Glucagen) 1 mg Q15M PRN IM DECREASED GLUCOSE; Start 04/05/17 at 21:30 Glucose (Glutose) 15 gm Q15M PRN BUCCAL DECREASED GLUCOSE; Start 04/05/17 at 21 :30 Famotidine (Pepcid) 20 mg DAILY PO Last administered on 04/11/17 09:08; Admin Dose 20 MG; Start 04/07/17 at 09:00 Insulin Detemir (Levemir) 18 unit HS SC Last administered on 04/11/17 21:20; Admin Dose 18 UNIT; Start 04/06/17 at 21:00 Hydralazine HCl (Apresoline) 75 mg TID PO Last administered on 04/11/17 20:52; Admin Dose 75 MG; Start 04/07/17 at 09:30 Metoprolol Tartrate 50 mg 50 mg BID PO Last administered on 04/11/17 20:51; Admin Dose 50 MG; Start 04/07/17 at 09:30 Azithromycin 250 mg/Sodium Chloride 250 ml @ 250 mls/hr Q24H IVPB Last administered on 04/11/17 15:02; Admin Dose 250 MLS/HR; Start 04/07/17 at 15:00 Ceftriaxone Sodium (Rocephin) 50 ml @ 100 mls/hr Q24H IVPB Last administered on 04/11/17 18:00; Admin Dose 100 MLS/HR; Start 04/08/17 at 18:00 TRES CHEN MD Apr 12, 2017 01:22
[2017-04-12] MEDS: ALBUTEROL 0.083% (NEB) 2.5 MG/3 ML AMP HHN SCH ×4 (01:37→20:22)
[2017-04-12] MEDS: IPRATROPIUM (NEB) 0.5 MG/2.5 ML AMP HHN SCH ×4 (01:37→20:22)
[2017-04-12] MEDS: ACCU-CHEK XX SCH (02:00)
[2017-04-12] MEDS: INSULIN ASPART [NOVOLOG] 3 ML PEN SC SCH ×7 (07:50→20:55)
[2017-04-12] MEDS: METOPROLOL 50 MG TAB PO SCH ×2 (07:50→22:05)
[2017-04-12] MEDS: FAMOTIDINE 20 MG TAB PO SCH (08:18)
[2017-04-12] MEDS: HEPARIN 5,000 UNIT/0.5 ML VIAL SC SCH ×2 (08:21→20:59)
[2017-04-12] MEDS: AZITHROMYCIN 250 MG in SOD CHLORIDE 0.9% 250 ML IVPB SCH (15:16)
[2017-04-12] MEDS: CEFTRIAXONE 1 GM/50 ML (PMX) 50 ML IVPB SCH (17:24)
--- NOTE | 2017-04-12 19:04 | CONS ---
DATE OF ADMISSION: 04/05/2017 DATE OF CONSULTATION: 04/12/2017 REASON FOR CONSULTATION: Abnormal chest CT. Thank you, Dr. Moya, for this consultation. HISTORY OF PRESENT ILLNESS: This is a 66-year-old lady originally admitted for increasing shortness of breath, cough and congestion 6 days ago. I have been called to see the patient today. The patient was diagnosed with pulmonary edema, likely secondary to cardiorenal disease from underlying end-stage renal failure on hemodialysis. She has had subsequent hemodialysis with significant improvement in her respiratory status. CT of the chest was performed 2 days ago and showed scattered inflammatory bronchiolitis and possible underlying bronchopneumonia. Patient, however, denies any cough at present. No fever, no chills. No hemoptysis or hematemesis. The white count has now returned to normal at 7.38 and the oxygen saturations are 94 percent on room air. PAST MEDICAL HISTORY: 1. End-stage renal failure on hemodialysis. 2. History of diabetes mellitus with neuropathy and diabetic nephropathy. 3. History of pacemaker placement. 4. Congestive cardiac failure. 5. Ovarian surgery. MEDICATION: Per chart. ALLERGIES: NONE. SOCIAL HISTORY: Nonsmoker. No alcohol. No history of drug use. FAMILY HISTORY: Noncontributory. REVIEW OF SYSTEMS: A 12-point review of systems negative other than that mentioned above. PHYSICAL EXAMINATION: GENERAL APPEARANCE: Well-nourished well-developed lady comfortable at rest, talking in full and complete sentences. VITAL SIGNS: Currently afebrile, pulse is 80, blood pressure 113/53, O2 sat 94 percent on room air. NECK: Supple. No JVD. CARDIAC: S1, S2. No added sounds or murmurs. CHEST: Diminished air entry bilaterally. ABDOMEN: Soft, nontender. No guarding or rebound. EXTREMITIES: No cyanosis, clubbing or edema. NEUROLOGIC: Grossly intact. No focal deficits. LABORATORY: White count 7.3, hemoglobin 11.1, platelets of 216. BUN 75, creatinine 9.76. INR 0.95. Chest x-ray was reviewed as above. IMPRESSION AND PLAN: 1. Likely hypoxemic respiratory distress secondary to volume overload. 2. Possible underlying acute tracheobronchitis with evidence of bronchiectasis, clinically improved. 3. Diabetes mellitus. PLAN: 1. Continue hemodialysis with volume removal. 2. From pulmonary standpoint, patient can be discharged home. I will follow her in the office with outpatient pulmonary function testing and further recommendations at that time. Dictated By: Bryan Cantu MD /jenna/abiel /Document#: [id number]
[2017-04-12] MEDS: INSULIN DETEMIR [LEVEMIR] 3ML CART SC SCH (21:00)
--- NOTE | 2017-04-12 23:17 | PN ---
Date/Time of Note Date/Time of Note DATE: 04/12/17 TIME: 23:16 Assessment/Plan VTE Prophylaxis VTE Prophylaxis Intervention: other Lines/Catheters IV Catheter Type (from Nrs): Saline Lock Urinary Cath still in place: No Assessment/Plan Chief Complaint/Hosp Course # Hypertension. # End-stage renal disease, on hemodialysis. # Diabetes. # Hypercholesteremia. # History of pacemaker placement # Hyperphosphetemia # Anemia pneumonia bronchites bronchiectasis plan pul called hd antibiotic Problems: Subjective 24 Hr Interval Summary Respiratory: shortness of breath (+) Exam/Review of Systems Vital Signs Vitals Vital Signs Date Time Temp Pulse Resp B/P Pulse Ox O2 Delivery O2 Flow Rate FiO2 04/12/17 20:42 87 04/12/17 20:24 94 2.0 04/12/17 20:24 18 Nasal Cannula 04/12/17 20:00 98.4 133/62 04/12/17 15:01 21 Intake and Output 04/11/17 04/11/17 04/12/17 15:00 23:00 07:00 Intake Total 250 ml 500 ml Balance 250 ml 500 ml Exam Neck: supple Respiratory: clear to auscultation, diminished breath sounds Cardiovascular: regular rate and rhythm Gastrointestinal: soft Musculoskeletal: nl extremities to inspection Extremities: normal pulses Results Result Diagram: 04/10/1762604/10/17626 Results 24 hrs Laboratory Tests Test 04/12/17 07:49 04/12/17 12:16 04/12/17 17:22 04/12/17 20:53 Bedside Glucose 94 122 159 117 Medications Medications Current Medications Ondansetron HCl (Zofran Inj) 4 mg Q6H PRN IV NAUSEA AND/OR VOMITING; Start at 08:30 Acetaminophen (Tylenol Tab) 650 mg Q6H PRN PO PAIN LEVEL 1-3 OR FEVER; Start at 08:30 Acetaminophen/ Hydrocodone Bitart ([place] (5/325)) 1 tab Q6H PRN PO MODERATE PAIN LEVEL 4-6; Start 04/05/17 at 08:30 Oxycodone/ Acetaminophen (Percocet (5/ 325)) 2 tab Q6H PRN PO SEVERE PAIN LEVEL 7-10; Start 04/05/17 at 08:30 Docusate Sodium (Colace) 100 mg Q12H PRN PO CONSTIPATION; Start 04/05/17 at 08: 30 Zolpidem Tartrate (Ambien) 5 mg QHS PRN PO SLEEP; Start 04/05/17 at 08:30 Heparin Sodium (Porcine) (Heparin (5000 Units/0.5 ml)) 5,000 unit Q12 SC Last administered on 04/12/17 20:59; Admin Dose 5,000 UNIT; Start 04/05/17 at 09:00 Diagnostic Test (Pha) (Accu-Chek) 1 ea 02 XX Last administered on 04/08/17 02: 48; Admin Dose 1 EA; Start 04/06/17 at 02:00 Miscellaneous Information 1 ea NOTE XX ; Start 04/05/17 at 21:30 Glucose (Glutose) 15 gm Q15M PRN PO DECREASED GLUCOSE; Start 04/05/17 at 21:30 Glucose (Glutose) 22.5 gm Q15M PRN PO DECREASED GLUCOSE; Start 04/05/17 at 21: 30 Dextrose (D50w Syringe) 25 ml Q15M PRN IV DECREASED GLUCOSE; Start 04/05/17 at 21:30 Dextrose (D50w Syringe) 50 ml Q15M PRN IV DECREASED GLUCOSE; Start 04/05/17 at 21:30 Glucagon (Glucagen) 1 mg Q15M PRN IM DECREASED GLUCOSE; Start 04/05/17 at 21:30 Glucose (Glutose) 15 gm Q15M PRN BUCCAL DECREASED GLUCOSE; Start 04/05/17 at 21 :30 Famotidine (Pepcid) 20 mg DAILY PO Last administered on 04/12/17 08:18; Admin Dose 20 MG; Start 04/07/17 at 09:00 Insulin Detemir (Levemir) 18 unit HS SC Last administered on 04/12/17 21:00; Admin Dose 18 UNIT; Start 04/06/17 at 21:00 Hydralazine HCl (Apresoline) 75 mg TID PO Last administered on 04/12/17 20:51; Admin Dose 75 MG; Start 04/07/17 at 09:30 Metoprolol Tartrate 50 mg 50 mg BID PO Last administered on 04/12/17 22:05; Admin Dose 50 MG; Start 04/07/17 at 09:30 Azithromycin 250 mg/Sodium Chloride 250 ml @ 250 mls/hr Q24H IVPB Last administered on 04/12/17 15:16; Admin Dose 250 MLS/HR; Start 04/07/17 at 15:00 Ceftriaxone Sodium (Rocephin) 50 ml @ 100 mls/hr Q24H IVPB Last administered on 04/12/17 17:24; Admin Dose 100 MLS/HR; Start 04/08/17 at 18:00 JEFF RAMOS MD Apr 12, 2017 23:17
[2017-04-13] VITALS (12 sets, daily range): BP systolic 110–142; BP diastolic 56–76; PULSE 72–80; RESP 17–19
[2017-04-13] MEDS: ALBUTEROL 0.083% (NEB) 2.5 MG/3 ML AMP HHN SCH ×4 (01:41→19:38)
[2017-04-13] MEDS: IPRATROPIUM (NEB) 0.5 MG/2.5 ML AMP HHN SCH ×4 (01:41→19:38)
[2017-04-13] MEDS: ACCU-CHEK XX SCH (02:00)
[2017-04-13] MEDS: INSULIN ASPART [NOVOLOG] 3 ML PEN SC SCH ×7 (07:44→21:00)
--- NOTE | 2017-04-13 07:45 | CONS ---
Date/Time of Note Date/Time of Note DATE: 04/13/17 TIME: 07:37 Assessment/Plan Assessment/Plan Chief Complaint/Hosp Course 1. hypoxemic resp failure: multifactorial due to volume overload/ brochiolitis/ ?pneumonia 2, CHB 3.S/P PPM 4. ESRD ON HD 5. HTN REC: HD as per renal .fluid managment as per renal cont resp care as per pulm normal pacemaker function. pt has recently had a stress test done as outpt which did not show any significant ischemia. THANK YOU. YOSEPH PERDOMO MD [facility] Problems: Consultation Date/Type/Reason Admit Date/Time Apr 05, 2017 at 06:50 Date of Consultation: Apr 13, 2017 Type of Consultation: cardiology Reason for Consultation heart block. s/p PPM. dyspnea Referring Provider: ELIANA LEONARDO MD Hx of Present Illness CC: SOB. HPI: Dear Dr Leonardo, thank you for this referral. This is a very pleasant 66 year old female well known to me since 2013 (when she presented with CHB and underwent PPM by me) who was admitted with increasing sob. pt also with cough. she denies any chest pain or pressure to me. pt has CHB and has been pacemaker dependent since 2013. she has been admitted and has had HD. she is currently feeling better now. her old records were reviewed. PAST MEDICAL HISTORY: 1. Diabetes for 20 years, with diabetic neuropathy and diabetic nephropathy. 2. End-stage renal disease, on hemodialysis Monday, , Monday at [facility]. 3. History of AV fistula placement. 4. History of CHB, S/P pacemaker placement. ALLERGIES: NKDA. PAST SURGICAL HISTORY: Significant for: 1. A right upper extremity fistula placement. 2. Some ovarian surgery. 3. Pacemaker placement 05/20/[address] Perdomo (Biotronik MRI compatible ) SOCIAL HISTORY: Denies any history of smoking, alcohol, or drug use. Lives at home with family. MEDICATIONS: At home: 1. Clonidine 0.1. 2. Metoprolol 25 b.i.d. 3. Hydralazine 75 b.i.d. 4. Protonix 40. 5. Phoslo. 6. Lantus 15. 7. Humalog 5 t.i.d. ROS: as above only. she denies all others. Constitutional: no complaints Eyes: no complaints ENT: no complaints Respiratory: shortness of breath (+) Cardiovascular: no complaints Gastrointestinal: no complaints Genitourinary: no complaints Social History Smoking Status: Never smoker Exam/Review of Systems Vital Signs Vitals Vital Signs Date Time Temp Pulse Resp B/P Pulse Ox O2 Delivery O2 Flow Rate FiO2 04/13/17 04:32 72 04/13/17 04:00 98.2 19 139/63 97 04/13/17 01:41 Nasal Cannula 2.0 04/12/17 15:01 21 Intake and Output 04/12/17 04/12/17 04/13/17 15:00 23:00 07:00 Intake Total 500 ml 850 ml 480 ml Output Total 3500 ml Balance -3000 ml 850 ml 480 ml Exam GEN: no acute distress. HEENT: NCAT. Pupils are equal. round Neck: supple. no stridor. CV RRR. systolic murmur, pulm: no wheezing. mild rhonchi. GI: soft NT ND EXT: + LE edema neuro: awake and alert/ Ox3 nonfocal psych: calm and very pleasant ECG V paced. echo: EF 50-55% CT CHEST: results was reviewed, Results Result Diagram: 04/10/1762604/10/17626 Results 24 hrs Laboratory Tests Test 04/12/17 07:49 04/12/17 12:16 04/12/17 17:22 04/12/17 20:53 Bedside Glucose 94 122 159 117 Medications Medications Current Medications Ondansetron HCl (Zofran Inj) 4 mg Q6H PRN IV NAUSEA AND/OR VOMITING; Start at 08:30 Acetaminophen (Tylenol Tab) 650 mg Q6H PRN PO PAIN LEVEL 1-3 OR FEVER; Start at 08:30 Acetaminophen/ Hydrocodone Bitart ([place] (5/325)) 1 tab Q6H PRN PO MODERATE PAIN LEVEL 4-6; Start 04/05/17 at 08:30 Oxycodone/ Acetaminophen (Percocet (5/ 325)) 2 tab Q6H PRN PO SEVERE PAIN LEVEL 7-10; Start 04/05/17 at 08:30 Docusate Sodium (Colace) 100 mg Q12H PRN PO CONSTIPATION; Start 04/05/17 at 08: 30 Zolpidem Tartrate (Ambien) 5 mg QHS PRN PO SLEEP; Start 04/05/17 at 08:30 Heparin Sodium (Porcine) (Heparin (5000 Units/0.5 ml)) 5,000 unit Q12 SC Last administered on 04/12/17 20:59; Admin Dose 5,000 UNIT; Start 04/05/17 at 09:00 Diagnostic Test (Pha) (Accu-Chek) 1 ea 02 XX Last administered on 04/08/17 02: 48; Admin Dose 1 EA; Start 04/06/17 at 02:00 Miscellaneous Information 1 ea NOTE XX ; Start 04/05/17 at 21:30 Glucose (Glutose) 15 gm Q15M PRN PO DECREASED GLUCOSE; Start 04/05/17 at 21:30 Glucose (Glutose) 22.5 gm Q15M PRN PO DECREASED GLUCOSE; Start 04/05/17 at 21: 30 Dextrose (D50w Syringe) 25 ml Q15M PRN IV DECREASED GLUCOSE; Start 04/05/17 at 21:30 Dextrose (D50w Syringe) 50 ml Q15M PRN IV DECREASED GLUCOSE; Start 04/05/17 at 21:30 Glucagon (Glucagen) 1 mg Q15M PRN IM DECREASED GLUCOSE; Start 04/05/17 at 21:30 Glucose (Glutose) 15 gm Q15M PRN BUCCAL DECREASED GLUCOSE; Start 04/05/17 at 21 :30 Famotidine (Pepcid) 20 mg DAILY PO Last administered on 04/12/17 08:18; Admin Dose 20 MG; Start 04/07/17 at 09:00 Insulin Detemir (Levemir) 18 unit HS SC Last administered on 04/12/17 21:00; Admin Dose 18 UNIT; Start 04/06/17 at 21:00 Hydralazine HCl (Apresoline) 75 mg TID PO Last administered on 04/12/17 20:51; Admin Dose 75 MG; Start 04/07/17 at 09:30 Metoprolol Tartrate 50 mg 50 mg BID PO Last administered on 04/12/17 22:05; Admin Dose 50 MG; Start 04/07/17 at 09:30 Azithromycin 250 mg/Sodium Chloride 250 ml @ 250 mls/hr Q24H IVPB Last administered on 04/12/17 15:16; Admin Dose 250 MLS/HR; Start 04/07/17 at 15:00 Ceftriaxone Sodium (Rocephin) 50 ml @ 100 mls/hr Q24H IVPB Last administered on 04/12/17 17:24; Admin Dose 100 MLS/HR; Start 04/08/17 at 18:00 YOSEPH PERDOMO MD Apr 13, 2017 07:45
[2017-04-13] MEDS: FAMOTIDINE 20 MG TAB PO SCH (08:23)
[2017-04-13] MEDS: HEPARIN 5,000 UNIT/0.5 ML VIAL SC SCH ×2 (08:25→22:14)
[2017-04-13] MEDS: METOPROLOL 50 MG TAB PO SCH ×2 (10:09→22:03)
--- NOTE | 2017-04-13 11:19 | CONS ---
Date/Time of Note Date/Time of Note DATE: 04/13/17 TIME: 11:17 Consult Date/Type/Reason Admit Date/Time Apr 05, 2017 at 06:50 Initial Consult Date 04/13/17 Type of Consultation: pulm Ordering Provider: ELIANA NEELY MD Subjective Remains comfortable. No shortness of breath. Objective Vital Signs Date Time Temp Pulse Resp B/P Pulse Ox O2 Delivery O2 Flow Rate FiO2 04/13/17 08:44 80 04/13/17 08:34 20 94 21 04/13/17 07:58 98.1 142/65 04/13/17 01:41 Nasal Cannula 2.0 Intake and Output 04/12/17 04/12/17 04/13/17 15:00 23:00 07:00 Intake Total 500 ml 850 ml 480 ml Output Total 3500 ml Balance -3000 ml 850 ml 480 ml Exam PHYSICAL EXAMINATION: GENERAL APPEARANCE: Well-nourished well-developed lady comfortable at rest, talking in full and complete sentences. VITAL SIGNS: NECK: Supple. No JVD. CARDIAC: S1, S2. No added sounds or murmurs. CHEST: Diminished air entry bilaterally. ABDOMEN: Soft, nontender. No guarding or rebound. EXTREMITIES: No cyanosis, clubbing or edema. NEUROLOGIC: Grossly intact. No focal deficits. Results/Medications Result Diagram: 04/10/1762604/10/17626 Results 24 hrs Laboratory Tests Test 04/12/17 12:16 04/12/17 17:22 04/12/17 20:53 04/13/17 07:36 Bedside Glucose 122 159 117 114 Medications Current Medications Ondansetron HCl (Zofran Inj) 4 mg Q6H PRN IV NAUSEA AND/OR VOMITING; Start at 08:30 Acetaminophen (Tylenol Tab) 650 mg Q6H PRN PO PAIN LEVEL 1-3 OR FEVER; Start at 08:30 Acetaminophen/ Hydrocodone Bitart ([place] (5/325)) 1 tab Q6H PRN PO MODERATE PAIN LEVEL 4-6; Start 04/05/17 at 08:30 Oxycodone/ Acetaminophen (Percocet (5/ 325)) 2 tab Q6H PRN PO SEVERE PAIN LEVEL 7-10; Start 04/05/17 at 08:30 Docusate Sodium (Colace) 100 mg Q12H PRN PO CONSTIPATION; Start 04/05/17 at 08: 30 Zolpidem Tartrate (Ambien) 5 mg QHS PRN PO SLEEP; Start 04/05/17 at 08:30 Heparin Sodium (Porcine) (Heparin (5000 Units/0.5 ml)) 5,000 unit Q12 SC Last administered on 04/13/17 08:25; Admin Dose 5,000 UNIT; Start 04/05/17 at 09:00 Diagnostic Test (Pha) (Accu-Chek) 1 ea 02 XX Last administered on 04/08/17 02: 48; Admin Dose 1 EA; Start 04/06/17 at 02:00 Miscellaneous Information 1 ea NOTE XX ; Start 04/05/17 at 21:30 Glucose (Glutose) 15 gm Q15M PRN PO DECREASED GLUCOSE; Start 04/05/17 at 21:30 Glucose (Glutose) 22.5 gm Q15M PRN PO DECREASED GLUCOSE; Start 04/05/17 at 21: 30 Dextrose (D50w Syringe) 25 ml Q15M PRN IV DECREASED GLUCOSE; Start 04/05/17 at 21:30 Dextrose (D50w Syringe) 50 ml Q15M PRN IV DECREASED GLUCOSE; Start 04/05/17 at 21:30 Glucagon (Glucagen) 1 mg Q15M PRN IM DECREASED GLUCOSE; Start 04/05/17 at 21:30 Glucose (Glutose) 15 gm Q15M PRN BUCCAL DECREASED GLUCOSE; Start 04/05/17 at 21 :30 Famotidine (Pepcid) 20 mg DAILY PO Last administered on 04/13/17 08:23; Admin Dose 20 MG; Start 04/07/17 at 09:00 Insulin Detemir (Levemir) 18 unit HS SC Last administered on 04/12/17 21:00; Admin Dose 18 UNIT; Start 04/06/17 at 21:00 Hydralazine HCl (Apresoline) 75 mg TID PO Last administered on 04/13/17 10:10; Admin Dose 75 MG; Start 04/07/17 at 09:30 Metoprolol Tartrate 50 mg 50 mg BID PO Last administered on 04/13/17 10:09; Admin Dose 50 MG; Start 04/07/17 at 09:30 Azithromycin 250 mg/Sodium Chloride 250 ml @ 250 mls/hr Q24H IVPB Last administered on 04/12/17 15:16; Admin Dose 250 MLS/HR; Start 04/07/17 at 15:00 Ceftriaxone Sodium (Rocephin) 50 ml @ 100 mls/hr Q24H IVPB Last administered on 04/12/17 17:24; Admin Dose 100 MLS/HR; Start 04/08/17 at 18:00 Assessment/Plan Chief Complaint/Hosp Course IMPRESSION AND PLAN: 1. Likely hypoxemic respiratory distress secondary to volume overload. Clinically improved 2. Possible underlying acute tracheobronchitis with evidence of bronchiectasis, clinically improved. 3. Diabetes mellitus. PLAN: 1. Continue hemodialysis with volume removal. 2. From pulmonary standpoint, patient can be discharged home. Discharge home. Follow-up with me as an outpatient. Problems: AL[facility] Apr 13, 2017 11:19
--- NOTE | 2017-04-13 13:07 | PDOCDIS ---
Discharge Instructions CONDITION Patient Condition: Stable HOME CARE INSTRUCTIONS: Special Diet: renal/carb ACTIVITY: Activity Restrictions: Slowly Increase Activity FOLLOW UP/APPOINTMENTS Follow-up Plan f/u dr ramos 2 wks see pcp 1 wk JEFF RAMOS MD Apr 13, 2017 13:07
[2017-04-13] MEDS ORDERED: Ipratropium 0.02% (Neb) HHN (13:12)
[2017-04-13] MEDS ORDERED: ALBU2.5V3 HHN (13:12)
[2017-04-13] MEDS ORDERED: DOCU-216 PO (13:12)
[2017-04-13] MEDS ORDERED: FAMO20TA18 PO (13:12)
[2017-04-13] MEDS: AZITHROMYCIN 250 MG in SOD CHLORIDE 0.9% 250 ML IVPB SCH (14:25)
--- NOTE | 2017-04-13 16:46 | PN ---
Date/Time of Note Date/Time of Note DATE: 04/13/17 TIME: 16:45 Assessment/Plan VTE Prophylaxis VTE Prophylaxis Intervention: other Lines/Catheters IV Catheter Type (from Nrs): Saline Lock Urinary Cath still in place: No Assessment/Plan Chief Complaint/Hosp Course # Hypertension. # End-stage renal disease, on hemodialysis. # Diabetes. # Hypercholesteremia. # History of pacemaker placement # Hyperphosphetemia # Anemia pneumonia bronchites bronchiectasis plan pul called hd antibiotic home w antibiotic Problems: Subjective 24 Hr Interval Summary Respiratory: shortness of breath (better) Cardiovascular: no complaints Gastrointestinal: no complaints Exam/Review of Systems Vital Signs Vitals Vital Signs Date Time Temp Pulse Resp B/P Pulse Ox O2 Delivery O2 Flow Rate FiO2 04/13/17 16:32 74 04/13/17 15:07 20 92 Nasal Cannula 2.0 21 04/13/17 15:01 98.0 110/56 Intake and Output 04/12/17 04/12/17 04/13/17 15:00 23:00 07:00 Intake Total 500 ml 850 ml 480 ml Output Total 3500 ml Balance -3000 ml 850 ml 480 ml Exam Respiratory: diminished breath sounds Cardiovascular: regular rate and rhythm Gastrointestinal: nl liver, spleen, non-tender, soft Extremities: edema (+) Results Result Diagram: 04/10/1762604/10/17626 Results 24 hrs Laboratory Tests Test 04/12/17 17:22 04/12/17 20:53 04/13/17 07:36 04/13/17 12:07 Bedside Glucose 159 117 114 131 Medications Medications Current Medications Ondansetron HCl (Zofran Inj) 4 mg Q6H PRN IV NAUSEA AND/OR VOMITING; Start at 08:30 Acetaminophen (Tylenol Tab) 650 mg Q6H PRN PO PAIN LEVEL 1-3 OR FEVER; Start at 08:30 Acetaminophen/ Hydrocodone Bitart ([place] (5/325)) 1 tab Q6H PRN PO MODERATE PAIN LEVEL 4-6; Start 04/05/17 at 08:30 Oxycodone/ Acetaminophen (Percocet (5/ 325)) 2 tab Q6H PRN PO SEVERE PAIN LEVEL 7-10; Start 04/05/17 at 08:30 Docusate Sodium (Colace) 100 mg Q12H PRN PO CONSTIPATION; Start 04/05/17 at 08: 30 Zolpidem Tartrate (Ambien) 5 mg QHS PRN PO SLEEP; Start 04/05/17 at 08:30 Heparin Sodium (Porcine) (Heparin (5000 Units/0.5 ml)) 5,000 unit Q12 SC Last administered on 04/13/17 08:25; Admin Dose 5,000 UNIT; Start 04/05/17 at 09:00 Diagnostic Test (Pha) (Accu-Chek) 1 ea 02 XX Last administered on 04/08/17 02: 48; Admin Dose 1 EA; Start 04/06/17 at 02:00 Miscellaneous Information 1 ea NOTE XX ; Start 04/05/17 at 21:30 Glucose (Glutose) 15 gm Q15M PRN PO DECREASED GLUCOSE; Start 04/05/17 at 21:30 Glucose (Glutose) 22.5 gm Q15M PRN PO DECREASED GLUCOSE; Start 04/05/17 at 21: 30 Dextrose (D50w Syringe) 25 ml Q15M PRN IV DECREASED GLUCOSE; Start 04/05/17 at 21:30 Dextrose (D50w Syringe) 50 ml Q15M PRN IV DECREASED GLUCOSE; Start 04/05/17 at 21:30 Glucagon (Glucagen) 1 mg Q15M PRN IM DECREASED GLUCOSE; Start 04/05/17 at 21:30 Glucose (Glutose) 15 gm Q15M PRN BUCCAL DECREASED GLUCOSE; Start 04/05/17 at 21 :30 Famotidine (Pepcid) 20 mg DAILY PO Last administered on 04/13/17 08:23; Admin Dose 20 MG; Start 04/07/17 at 09:00 Insulin Detemir (Levemir) 18 unit HS SC Last administered on 04/12/17 21:00; Admin Dose 18 UNIT; Start 04/06/17 at 21:00 Hydralazine HCl (Apresoline) 75 mg TID PO Last administered on 04/13/17 12:27; Admin Dose 75 MG; Start 04/07/17 at 09:30 Metoprolol Tartrate 50 mg 50 mg BID PO Last administered on 04/13/17 10:09; Admin Dose 50 MG; Start 04/07/17 at 09:30 Azithromycin 250 mg/Sodium Chloride 250 ml @ 250 mls/hr Q24H IVPB Last administered on 04/13/17 14:25; Admin Dose 250 MLS/HR; Start 04/07/17 at 15:00 Ceftriaxone Sodium (Rocephin) 50 ml @ 100 mls/hr Q24H IVPB Last administered on 04/12/17 17:24; Admin Dose 100 MLS/HR; Start 04/08/17 at 18:00 JEFF RAMOS MD Apr 13, 2017 16:46
[2017-04-13] MEDS: CEFTRIAXONE 1 GM/50 ML (PMX) 50 ML IVPB SCH (17:38)
[2017-04-13] MEDS: INSULIN DETEMIR [LEVEMIR] 3ML CART SC SCH (22:13)
[2017-04-14] VITALS (11 sets, daily range): BP systolic 130–157; BP diastolic 59–85; PULSE 93–100; RESP 18–20
[2017-04-14] MEDS: ACCU-CHEK XX SCH (01:21)
[2017-04-14] MEDS: ALBUTEROL 0.083% (NEB) 2.5 MG/3 ML AMP HHN SCH ×3 (02:01→13:22)
[2017-04-14] MEDS: IPRATROPIUM (NEB) 0.5 MG/2.5 ML AMP HHN SCH ×3 (02:01→13:22)
[2017-04-14] MEDS: INSULIN ASPART [NOVOLOG] 3 ML PEN SC SCH ×6 (08:15→17:31)
--- NOTE | 2017-04-14 11:38 | PN ---
Date/Time of Note Date/Time of Note DATE: 04/14/17 TIME: 11:37 Assessment/Plan VTE Prophylaxis VTE Prophylaxis Intervention: ambulation Lines/Catheters IV Catheter Type (from Nrs): Saline Lock Urinary Cath still in place: No Assessment/Plan Chief Complaint/Hosp Course 1. SOB, resolved 2. Hypertension, controlled. 3. End-stage renal disease, on hemodialysis. 4. Diabetes mellitus type II, controlled. 5. Hypercholesteremia. 6. History of pacemaker placement 7. Hyperphosphatemia 8. Anemia 9. Overweight 10. SIRS, resolved 11. New order oxygen supplement at home Problems: Assessment/Plan 1. Discharge pending 2. New order oxygen supplement at home Subjective 24 Hr Interval Summary Constitutional: improved, no complaints Exam/Review of Systems Vital Signs Vitals Vital Signs Date Time Temp Pulse Resp B/P Pulse Ox O2 Delivery O2 Flow Rate FiO2 04/14/17 09:30 93 04/14/17 09:30 19 04/14/17 08:03 98.1 141/71 98 04/14/17 08:00 Nasal Cannula 2.0 04/14/17 07:52 24 Intake and Output 04/13/17 04/13/17 04/14/17 15:00 23:00 07:00 Intake Total 500 ml Balance 500 ml Exam Constitutional: alert, oriented Respiratory: clear to auscultation, diminished breath sounds Cardiovascular: regular rate and rhythm Gastrointestinal: soft Results Result Diagram: 04/10/17 0627 04/10/17 0627 Results 24 hrs Laboratory Tests Test 04/13/17 12:07 04/13/17 17:32 04/13/17 22:07 04/14/17 08:07 Bedside Glucose 131 89 127 89 Medications Medications Current Medications Ondansetron HCl (Zofran Inj) 4 mg Q6H PRN IV NAUSEA AND/OR VOMITING; Start at 08:30 Acetaminophen (Tylenol Tab) 650 mg Q6H PRN PO PAIN LEVEL 1-3 OR FEVER; Start at 08:30 Acetaminophen/ Hydrocodone Bitart ([place] (5/325)) 1 tab Q6H PRN PO MODERATE PAIN LEVEL 4-6; Start 04/05/17 at 08:30 Oxycodone/ Acetaminophen (Percocet (5/ 325)) 2 tab Q6H PRN PO SEVERE PAIN LEVEL 7-10; Start 04/05/17 at 08:30 Docusate Sodium (Colace) 100 mg Q12H PRN PO CONSTIPATION; Start 04/05/17 at 08: 30 Zolpidem Tartrate (Ambien) 5 mg QHS PRN PO SLEEP; Start 04/05/17 at 08:30 Heparin Sodium (Porcine) (Heparin (5000 Units/0.5 ml)) 5,000 unit Q12 SC Last administered on 04/13/17 22:14; Admin Dose 5,000 UNIT; Start 04/05/17 at 09:00 Diagnostic Test (Pha) (Accu-Chek) 1 ea 02 XX Last administered on 04/08/17 02: 48; Admin Dose 1 EA; Start 04/06/17 at 02:00 Miscellaneous Information 1 ea NOTE XX ; Start 04/05/17 at 21:30 Glucose (Glutose) 15 gm Q15M PRN PO DECREASED GLUCOSE; Start 04/05/17 at 21:30 Glucose (Glutose) 22.5 gm Q15M PRN PO DECREASED GLUCOSE; Start 04/05/17 at 21: 30 Dextrose (D50w Syringe) 25 ml Q15M PRN IV DECREASED GLUCOSE; Start 04/05/17 at 21:30 Dextrose (D50w Syringe) 50 ml Q15M PRN IV DECREASED GLUCOSE; Start 04/05/17 at 21:30 Glucagon (Glucagen) 1 mg Q15M PRN IM DECREASED GLUCOSE; Start 04/05/17 at 21:30 Glucose (Glutose) 15 gm Q15M PRN BUCCAL DECREASED GLUCOSE; Start 04/05/17 at 21 :30 Famotidine (Pepcid) 20 mg DAILY PO Last administered on 04/13/17 08:23; Admin Dose 20 MG; Start 04/07/17 at 09:00 Insulin Detemir (Levemir) 18 unit HS SC Last administered on 04/13/17 22:13; Admin Dose 18 UNIT; Start 04/06/17 at 21:00 Hydralazine HCl (Apresoline) 75 mg TID PO Last administered on 04/13/17 22:03; Admin Dose 75 MG; Start 04/07/17 at 09:30 Metoprolol Tartrate 50 mg 50 mg BID PO Last administered on 04/13/17 22:03; Admin Dose 50 MG; Start 04/07/17 at 09:30 Azithromycin 250 mg/Sodium Chloride 250 ml @ 250 mls/hr Q24H IVPB Last administered on 04/13/17 14:25; Admin Dose 250 MLS/HR; Start 04/07/17 at 15:00 Ceftriaxone Sodium (Rocephin) 50 ml @ 100 mls/hr Q24H IVPB Last administered on 04/13/17 17:38; Admin Dose 100 MLS/HR; Start 04/08/17 at 18:00 JANE MARIE Apr 14, 2017 11:38
[2017-04-14] MEDS: METOPROLOL 50 MG TAB PO SCH (12:10)
[2017-04-14] MEDS: HEPARIN 5,000 UNIT/0.5 ML VIAL SC SCH (12:17)
[2017-04-14] MEDS: FAMOTIDINE 20 MG TAB PO SCH (12:18)
--- NOTE | 2017-04-14 13:53 | CONS ---
Date/Time of Note Date/Time of Note DATE: 04/14/17 TIME: 13:52 Consult Date/Type/Reason Admit Date/Time Apr 05, 2017 at 06:50 Initial Consult Date 04/13/17 Type of Consultation: pulm Ordering Provider: ELIANA NEELY MD Subjective Remains comfortable this morning no new events. Objective Vital Signs Date Time Temp Pulse Resp B/P Pulse Ox O2 Delivery O2 Flow Rate FiO2 04/14/17 13:27 1.0 04/14/17 13:25 85 20 96 Nasal Cannula 21 04/14/17 08:03 98.1 141/71 Intake and Output 04/13/17 04/13/17 04/14/17 15:00 23:00 07:00 Intake Total 500 ml Balance 500 ml Exam Exam PHYSICAL EXAMINATION: GENERAL APPEARANCE: Well-nourished well-developed lady comfortable at rest, talking in full and complete sentences. VITAL SIGNS: NECK: Supple. No JVD. CARDIAC: S1, S2. No added sounds or murmurs. CHEST: Diminished air entry bilaterally. ABDOMEN: Soft, nontender. No guarding or rebound. EXTREMITIES: No cyanosis, clubbing or edema. NEUROLOGIC: Grossly intact. No focal deficits. Results/Medications Result Diagram: 04/10/17 0604/10/17 06 Results 24 hrs Laboratory Tests Test 04/13/17 17:32 04/13/17 22:07 04/14/17 08:07 04/14/17 12:00 Bedside Glucose 89 127 89 150 Medications Current Medications Ondansetron HCl (Zofran Inj) 4 mg Q6H PRN IV NAUSEA AND/OR VOMITING; Start at 08:30 Acetaminophen (Tylenol Tab) 650 mg Q6H PRN PO PAIN LEVEL 1-3 OR FEVER; Start at 08:30 Acetaminophen/ Hydrocodone Bitart ([place] (5/325)) 1 tab Q6H PRN PO MODERATE PAIN LEVEL 4-6; Start 04/05/17 at 08:30 Oxycodone/ Acetaminophen (Percocet (5/ 325)) 2 tab Q6H PRN PO SEVERE PAIN LEVEL 7-10; Start 04/05/17 at 08:30 Docusate Sodium (Colace) 100 mg Q12H PRN PO CONSTIPATION; Start 04/05/17 at 08: 30 Zolpidem Tartrate (Ambien) 5 mg QHS PRN PO SLEEP; Start 04/05/17 at 08:30 Heparin Sodium (Porcine) (Heparin (5000 Units/0.5 ml)) 5,000 unit Q12 SC Last administered on 04/14/17 12:17; Admin Dose 5,000 UNIT; Start 04/05/17 at 09:00 Diagnostic Test (Pha) (Accu-Chek) 1 ea 02 XX Last administered on 04/08/17 02: 48; Admin Dose 1 EA; Start 04/06/17 at 02:00 Miscellaneous Information 1 ea NOTE XX ; Start 04/05/17 at 21:30 Glucose (Glutose) 15 gm Q15M PRN PO DECREASED GLUCOSE; Start 04/05/17 at 21:30 Glucose (Glutose) 22.5 gm Q15M PRN PO DECREASED GLUCOSE; Start 04/05/17 at 21: 30 Dextrose (D50w Syringe) 25 ml Q15M PRN IV DECREASED GLUCOSE; Start 04/05/17 at 21:30 Dextrose (D50w Syringe) 50 ml Q15M PRN IV DECREASED GLUCOSE; Start 04/05/17 at 21:30 Glucagon (Glucagen) 1 mg Q15M PRN IM DECREASED GLUCOSE; Start 04/05/17 at 21:30 Glucose (Glutose) 15 gm Q15M PRN BUCCAL DECREASED GLUCOSE; Start 04/05/17 at 21 :30 Famotidine (Pepcid) 20 mg DAILY PO Last administered on 04/14/17 12:18; Admin Dose 20 MG; Start 04/07/17 at 09:00 Insulin Detemir (Levemir) 18 unit HS SC Last administered on 04/13/17 22:13; Admin Dose 18 UNIT; Start 04/06/17 at 21:00 Hydralazine HCl (Apresoline) 75 mg TID PO Last administered on 04/14/17 12:10; Admin Dose 75 MG; Start 04/07/17 at 09:30 Metoprolol Tartrate 50 mg 50 mg BID PO Last administered on 04/14/17 12:10; Admin Dose 50 MG; Start 04/07/17 at 09:30 Azithromycin 250 mg/Sodium Chloride 250 ml @ 250 mls/hr Q24H IVPB Last administered on 04/13/17 14:25; Admin Dose 250 MLS/HR; Start 04/07/17 at 15:00 Ceftriaxone Sodium (Rocephin) 50 ml @ 100 mls/hr Q24H IVPB Last administered on 04/13/17 17:38; Admin Dose 100 MLS/HR; Start 04/08/17 at 18:00 Assessment/Plan Chief Complaint/Hosp Course IMPRESSION AND PLAN: 1. Likely hypoxemic respiratory distress secondary to volume overload. Clinically improved 2. Possible underlying acute tracheobronchitis with evidence of bronchiectasis, clinically improved. 3. Diabetes mellitus. PLAN: 1. Continue hemodialysis with volume removal. 2. From pulmonary standpoint, patient can be discharged home. Discharge home. Follow-up with me as an outpatient. Home O2 to be arranged. Problems: ALYSSA [facility]ERRANO [facility], [facility] Apr 14, 2017 13:53
[2017-04-14] MEDS: AZITHROMYCIN 250 MG in SOD CHLORIDE 0.9% 250 ML IVPB SCH (15:00)
--- NOTE | 2017-04-14 18:04 | CONS ---
Date/Time of Note Date/Time of Note DATE: 04/14/17 TIME: 18:02 Consult Date/Type/Reason Admit Date/Time Apr 05, 2017 at 06:50 Initial Consult Date 04/13/17 Type of Consultation: CARDIOLOGY Ordering Provider: ELIANA NEELY MD Subjective Cardiology follow-up progress note: Discussed with her . Patient with no chest pain or pressure. Is breathing better. Wants to go home. Patient is awaiting the home oxygen. She denies any palpitation or syncope presyncope to me. Objective: General: no acute distress HEENT: NC/AT. pupils are equal. round. NECK: NO JVD. no stridor. CV: RRR. systolic murmur; no gallop or rubs. PULM: no wheezing or rhonchi. GI: SOFT, NT, ND, no rebound or guarding Extremity: trace B/L LE edema. no clubbing. neuro: awake and alert, OX3. Psych: calm and pleasant rectal: deferred : normal Objective Vital Signs Date Time Temp Pulse Resp B/P Pulse Ox O2 Delivery O2 Flow Rate FiO2 04/14/17 14:00 98.7 94 18 130/64 97 04/14/17 13:27 1.0 04/14/17 13:25 Nasal Cannula 21 Intake and Output 04/13/17 04/13/17 04/14/17 15:00 23:00 07:00 Intake Total 500 ml Balance 500 ml Results/Medications Result Diagram: 04/10/17 0627 04/10/17 0627 Results 24 hrs Laboratory Tests Test 04/13/17 22:07 04/14/17 08:07 04/14/17 12:00 04/14/17 17:25 Bedside Glucose 127 89 150 92 Medications Current Medications Ondansetron HCl (Zofran Inj) 4 mg Q6H PRN IV NAUSEA AND/OR VOMITING; Start at 08:30 Acetaminophen (Tylenol Tab) 650 mg Q6H PRN PO PAIN LEVEL 1-3 OR FEVER; Start at 08:30 Acetaminophen/ Hydrocodone Bitart ([place] (5/325)) 1 tab Q6H PRN PO MODERATE PAIN LEVEL 4-6; Start 04/05/17 at 08:30 Oxycodone/ Acetaminophen (Percocet (5/ 325)) 2 tab Q6H PRN PO SEVERE PAIN LEVEL 7-10; Start 04/05/17 at 08:30 Docusate Sodium (Colace) 100 mg Q12H PRN PO CONSTIPATION; Start 04/05/17 at 08: 30 Zolpidem Tartrate (Ambien) 5 mg QHS PRN PO SLEEP; Start 04/05/17 at 08:30 Heparin Sodium (Porcine) (Heparin (5000 Units/0.5 ml)) 5,000 unit Q12 SC Last administered on 04/14/17 12:17; Admin Dose 5,000 UNIT; Start 04/05/17 at 09:00 Diagnostic Test (Pha) (Accu-Chek) 1 ea 02 XX Last administered on 04/08/17 02: 48; Admin Dose 1 EA; Start 04/06/17 at 02:00 Miscellaneous Information 1 ea NOTE XX ; Start 04/05/17 at 21:30 Glucose (Glutose) 15 gm Q15M PRN PO DECREASED GLUCOSE; Start 04/05/17 at 21:30 Glucose (Glutose) 22.5 gm Q15M PRN PO DECREASED GLUCOSE; Start 04/05/17 at 21: 30 Dextrose (D50w Syringe) 25 ml Q15M PRN IV DECREASED GLUCOSE; Start 04/05/17 at 21:30 Dextrose (D50w Syringe) 50 ml Q15M PRN IV DECREASED GLUCOSE; Start 04/05/17 at 21:30 Glucagon (Glucagen) 1 mg Q15M PRN IM DECREASED GLUCOSE; Start 04/05/17 at 21:30 Glucose (Glutose) 15 gm Q15M PRN BUCCAL DECREASED GLUCOSE; Start 04/05/17 at 21 :30 Famotidine (Pepcid) 20 mg DAILY PO Last administered on 04/14/17 12:18; Admin Dose 20 MG; Start 04/07/17 at 09:00 Insulin Detemir (Levemir) 18 unit HS SC Last administered on 04/13/17 22:13; Admin Dose 18 UNIT; Start 04/06/17 at 21:00 Hydralazine HCl (Apresoline) 75 mg TID PO Last administered on 04/14/17 12:10; Admin Dose 75 MG; Start 04/07/17 at 09:30 Metoprolol Tartrate 50 mg 50 mg BID PO Last administered on 04/14/17 12:10; Admin Dose 50 MG; Start 04/07/17 at 09:30 Azithromycin 250 mg/Sodium Chloride 250 ml @ 250 mls/hr Q24H IVPB Last administered on 04/13/17 14:25; Admin Dose 250 MLS/HR; Start 04/07/17 at 15:00 Ceftriaxone Sodium (Rocephin) 50 ml @ 100 mls/hr Q24H IVPB Last administered on 04/13/17 17:38; Admin Dose 100 MLS/HR; Start 04/08/17 at 18:00 Assessment/Plan Chief Complaint/Hosp Course 1. hypoxemic resp failure: multifactorial due to volume overload/ brochiolitis/ ?pneumonia: improved now. 2, CHB 3. S/P PPM 4. ESRD ON HD 5. HTN REC: CONT HD as per renal .fluid managment as per renal cont resp care as per pulm. awaiting setting up for home O2 normal pacemaker function. pt has recently had a stress test done as outpt which did not show any significant ischemia. WILL f/u in office as previously scheduled. THANK YOU. YOSEPH CARCAMO MD [facility] Problems: YOSEPH CARCAMO MD Apr 14, 2017 18:04
== END 2017-04-14 19:30 | disposition home or self-care (01) | DRG 291 ==
LOC: E/R 02:52 → TEL 06:50 → E/R 06:51 → TEL 14:45 → MS2 04-14 00:27
PROVIDERS: ADMIT Internal Medicine Nephrology; ATTEND Internal Medicine Nephrology
PROC: 5A1D60Z (ICD-10-PCS; principal; 2017-04-05)
DX: I13.2 Hypertensive heart and chronic kidney disease with heart failure and with stage 5 chronic kidney disease, or end stage renal disease (principal); N18.6 End stage renal disease; J96.91 Respiratory failure, unspecified with hypoxia; J18.9 Pneumonia, unspecified organism; R65.10 Systemic inflammatory response syndrome (SIRS) of non-infectious origin without acute organ dysfunction; J47.0 Bronchiectasis with acute lower respiratory infection; I50.33 Acute on chronic diastolic (congestive) heart failure; E11.22 Type 2 diabetes mellitus with diabetic chronic kidney disease; E11.21 Type 2 diabetes mellitus with diabetic nephropathy; E11.40 Type 2 diabetes mellitus with diabetic neuropathy, unspecified; E83.39 Other disorders of phosphorus metabolism; Z99.2 Dependence on renal dialysis; E78.00 Pure hypercholesterolemia, unspecified; D64.9 Anemia, unspecified; E66.3 Overweight; Z68.28 Body mass index [BMI] 28.0-28.9, adult; Z95.0 Presence of cardiac pacemaker; Z79.4 Long term (current) use of insulin
CPT/HCPCS: 36415; 36600; 71010; 71250; 78582; 80048; 80053; 82803; 82962; 83735; 83880; 84100; 84484; 85025; 85610; 85730; 90935; 93005; 93306; 94640; 94664; 96372; 96374; A9540; J0456; J0696; J1644; J1815; J7050

== ENCOUNTER 2017-05-31 12:46 | Inpatient (IN) | payer MEDICARE, OTHER ==
[~2017-05-31] VITALS: Ht 165.1 cm; Wt 80.0 kg
[~2017-05-31 12:46] MED LIST changes: +ALBU2.5V3 HHN; +ASPI-664 PO; -CEPH-443 PO; -CHOL400T10 PO; +DOCU-216 PO; +FAMO20TA18 PO; +Ipratropium 0.02% (Neb) HHN; -PHEN-538 PO
[2017-05-31] MEDS ORDERED: PIPER-TAZO 3.375 GM IV (PMX) 100 ML IVPB STA (16:07)
[2017-05-31] MEDS ORDERED: VANCOMYCIN 1 GM (PMX) 250 ML IVPB ONE (16:30)
[2017-05-31 16:50] LABS: ABNORMAL IP MESSAGE 1; BASOPHILS % 0.1 % (0.0-2.0); EOSINOPHILS % 0.1 % (0.0-7.0); HEMATOCRIT 36.7 % (37.0-47.0); HEMOGLOBIN 11.9 g/dl (12.0-16.0); LYMPHOCYTES # 0.4 10^3/ul (0.8-2.9); LYMPHOCYTES % 2.6 % (15.0-51.0); MEAN CORPUSCULAR HEMOGLOBIN 32.2 pg (29.0-33.0); MEAN CORPUSCULAR HGB CONC 32.4 g/dl (32.0-37.0); MEAN CORPUSCULAR VOLUME 99.2 fl (82.0-101.0); MONOCYTE # 0.8 10^3/ul (0.3-0.9); NEUTROPHIL # 15.1 10^3/ul (1.6-7.5); NEUTROPHILS % 91.6 % (39.0-77.0); PLATELET COUNT 203 10^3/UL (140-415); RED CELL DISTRIBUTION WIDTH 13.6 % (11.5-14.5); WHITE BLOOD COUNT 16.5 10^3/ul (4.8-10.8)
--- NOTE | 2017-05-31 16:55 | RADRPT ---
PROCEDURE: XR Chest. CLINICAL INDICATION: Cough. Sepsis. TECHNIQUE: Single frontal view. COMPARISON: 04/08/2017. FINDINGS: The lungs are clear. The heart size is normal. There is calcification in the aorta consistent with atherosclerosis. There is a left-sided dual lead permanent pacemaker. There is no pleural effusion. There is no pneumothorax. IMPRESSION: 1. Atherosclerosis. 2. Permanent pacemaker. 3. Clear lungs. RPTAT: QQ .Shine Ragland MD, MD Date Time Electronically viewed and signed by .Shine Ragland MD, MD on 05/31/2017 16:55 .R/
[2017-05-31 16:58] LABS: POSITIVE DIFF @See below
[2017-05-31 17:07] LABS: INR 1.01; PARTIAL THROMBOPLASTIN TIME 35.2 Sec (25.0-35.0); PROTIME 13.3 Sec (12.2-14.2)
[2017-05-31 17:11] LABS: ALBUMIN 4.7 g/dl (3.3-4.9); ALBUMIN/GLOBULIN RATIO 1.04; BILIRUBIN,INDIRECT 0.2 mg/dl (0-1.1); BILIRUBIN,TOTAL 0.2 mg/dl (0.2-1.3); CALCIUM 9.3 mg/dl (8.4-10.2); CREATININE 10.21 mg/dl (0.44-1.00); TOTAL PROTEIN 9.2 g/dl (6.1-8.1)
[2017-05-31] MEDS ORDERED: METO-335 PO (17:11)
[2017-05-31 17:20] LABS: TROPONIN-I 0.076 ng/ml (0.00-0.12)
[2017-05-31 17:40] LABS: ADD UMIC YES; UR ASCORBIC ACID NEGATIVE (NEGATIVE); UR BACTERIA FEW /HPF (NONE SEEN); UR BILIRUBIN (Dip) NEGATIVE (NEGATIVE); UR BLOOD (Dip) NEGATIVE (NEGATIVE); UR CLARITY CLEAR (CLEAR); UR COLOR YELLOW (YELLOW); UR GLUCOSE (Dip) NEGATIVE (NEGATIVE); UR KETONES (Dip) NEGATIVE (NEGATIVE); UR LEUKOCYTE ESTERASE (Dip) NEGATIVE Leu/ul (NEGATIVE); UR NITRITE (Dip) NEGATIVE (NEGATIVE); UR RBC 1 /HPF (0-5); UR SPECIFIC GRAVITY (Dip) 1.012 (1.003-1.030); UR TOTAL PROTEIN (Dip) 2+ mg/dl (NEGATIVE); UR UROBILINOGEN (Dip) NEGATIVE (NEGATIVE)
[2017-05-31] MEDS ORDERED: FUROSEMIDE 20 MG INJ IV ONE (18:30)
[2017-05-31] MEDS ORDERED: SOD CHLORIDE 0.9% 1,000 ML IV ONE (18:30)
[2017-05-31] MEDS ORDERED: SODIUM CHLORIDE 0.9% 1L BAG IV* STA (18:55)
[2017-05-31] MEDS ORDERED: ONDANSETRON 4 MG INJ IV PRN ×2 (19:00→23:30)
[2017-05-31] MEDS ORDERED: ACETAMINOPHEN 325 MG TAB PO PRN ×2 (19:00→23:30)
--- NOTE | 2017-05-31 19:13 | ERD ---
ER Documentation Chief Complaint Chief Complaint fever started today, had dialysis yesterday HPI This 66-year-old female presents for fever and feeling generalized weakness and malaise starting today. She has had no cough. She does still make urine but has not noted any burning on urination. ROS All systems reviewed and are negative except as per history of present illness. Medications Home Meds Active Scripts Docusate Sodium (Dok) 100 Mg Capsule, 100 MG PO Q12H Y for CONSTIPATION for 28 Days, CAP Prov:JEFF RAMOS MD 04/13/17 Famotidine* (Famotidine*) 20 Mg Tablet, 20 MG PO DAILY for 28 Days, TAB Prov:JEFF RAMOS MD 04/13/17 [Ipratropium 0.02% (Neb)] 0.5 MG/2.5 ML NEBU No Conflict Check, 0.5 MG HHN Q6H RESP THERAPY for 28 Days Prov:JEFF RAMOS MD 04/13/17 Albuterol Sulfate* (Albuterol Sulfate* Neb) 0.083%-3 Ml Neb, 1.25 MG HHN Q6H RESP THERAPY for 28 Days Prov:JEFF RAMOS MD 04/13/17 Aspirin* (Aspirin* EC) 81 Mg Tablet.dr, 81 MG PO DAILY for 28 Days, TAB Prov:ELIANA NEELY MD 04/06/17 Folic Acid* (Folic Acid*) 1 Mg Tablet, 1 MG PO DAILY for 30 Days, TAB Prov:ELIANA NEELY MD 04/06/17 Calcium Acetate* (Phoslo*) 667 Mg Tablet, 2001 MG PO TID for 30 Days, TAB Prov:ELIANA NEELY MD 04/06/17 Clonidine Hcl* (Clonidine Hcl*) 0.1 Mg Tab, 0.1 MG PO TID for 30 Days, TAB Prov:ELIANA NEELY MD 04/06/17 Hydralazine Hcl* (Hydralazine Hcl*) 50 Mg Tab, 75 MG PO TID for 30 Days, TAB Prov:ELIANA NEELY MD 04/06/17 Pantoprazole* (Protonix*) 40 Mg Tablet.dr, 40 MG PO BID for 28 Days, TAB Prov:JEFF RAMOS MD 08/07/16 Reported Medications Metoprolol Succinate* (Toprol XL*) 25 Mg Tab.sr.24h, 25 MG PO DAILY, #30 TAB 05/31/17 Insulin Detemir* (Levemir*) 100 U/Ml Vial, 18 UNIT SC HS, VIAL 10/24/14 Insulin Lispro (Humalog) 100 U/Ml Insuln.pen, 5 UNIT SC WITH MEALS, EA 09/23/14 Discontinued Scripts Metoprolol Tartrate* (Lopressor*) 50 Mg Tab, 50 MG PO BID, #60 TAB Prov:ELIANA NEELY MD 04/06/17 Allergies Allergies: Coded Allergies: No Known Allergy (Unverified , 05/31/17) PMhx/Soc History of Surgery: Yes (Tumor in ovaries , rt ue shunt ) Anesthesia Reaction: No Hx Neurological Disorder: No Hx Respiratory Disorders: No Hx Cardiac Disorders: Yes (htn) Hx Psychiatric Problems: No Hx Miscellaneous Medical Probl: Yes (dm , esrd ) Hx Alcohol Use: No Hx Substance Use: No Hx Tobacco Use: No Smoking Status: Never smoker Physical Exam Vitals Vital Signs Date Time Temp Pulse Resp B/P Pulse Ox O2 Delivery O2 Flow Rate FiO2 05/31/17 17:31 99.8 98 18 152/66 05/31/17 16:52 Nasal Cannula 2 05/31/17 12:50 102.9 118 22 121/70 98 Physical Exam Const: [] Moderate distress Head: Atraumatic Eyes: Normal Conjunctiva, EOMI, PERRLA ENT: Normal External Ears, Nose and Mouth. Neck: Full range of motion..~Mild JVD Resp: Decreased bibasilar breath sounds Cardio: Regular tachycardia, no murmurs Abd: Soft, non tender, non distended. Normal bowel sounds Skin: No petechiae or rashes Back: No midline or flank tenderness Ext: No cyanosis, mild pedal edema, right upper arm dialysis access with positive thrill and no signs of infection. Distal pulses intact all 4 Neur: Awake and alert and oriented 3, no focal deficits Psych: Normal Mood and Affect Result Diagram: 05/31/17 1620 05/31/17 1620 Results 24 hrs Laboratory Tests Test 05/31/17 16:20 05/31/17 17:00 White Blood Count 16.510^3/ul Red Blood Count 3.7010^6/ul Hemoglobin 11.9g/dl Hematocrit 36.7% Mean Corpuscular Volume 99.2fl Mean Corpuscular Hemoglobin 32.2pg Mean Corpuscular Hemoglobin Concent 32.4g/dl Red Cell Distribution Width 13.6% Platelet Count 22399^3/UL Mean Platelet Volume 10.0fl Neutrophils % 91.6% Lymphocytes % 2.6% Monocytes % 5.0% Eosinophils % 0.1% Basophils % 0.1% Nucleated Red Blood Cells % 0.0/100WBC Neutrophils # 15.110^3/ul Lymphocytes # 0.410^3/ul Monocytes # 0.810^3/ul Eosinophils # 0.010^3/ul Basophils # 0.010^3/ul Nucleated Red Blood Cells # 0.010^3/ul Prothrombin Time 13.3Sec Prothrombin Time Ratio 1.0 INR International Normalized Ratio 1.01 Activated Partial Thromboplast Time 35.2Sec Sodium Level 138mmol/L Potassium Level 6.0mmol/L Chloride Level 96mmol/L Carbon Dioxide Level 23mmol/L Anion Gap 25 Blood Urea Nitrogen 70mg/dl Creatinine 10.21mg/dl Glucose Level 116mg/dl Lactic Acid Level 2.4mmol/L Calcium Level 9.3mg/dl Total Bilirubin 0.2mg/dl Direct Bilirubin 0.00mg/dl Indirect Bilirubin 0.2mg/dl Aspartate Amino Transf (AST/SGOT) 31IU/L Alanine Aminotransferase (ALT/SGPT) 20IU/L Alkaline Phosphatase 129IU/L Troponin I 0.076ng/ml Total Protein 9.2g/dl Albumin 4.7g/dl Globulin 4.50g/dl Albumin/Globulin Ratio 1.04 Urine Color YELLOW Urine Clarity CLEAR Urine pH 9.0 Urine Specific [place] 1.012 Urine Ketones NEGATIVEmg/dL Urine Nitrite NEGATIVEmg/dL Urine Bilirubin NEGATIVEmg/dL Urine Urobilinogen NEGATIVEmg/dL Urine Leukocyte Esterase NEGATIVELeu/ul Urine Microscopic RBC 1/HPF Urine Microscopic WBC 3/HPF Urine Bacteria FEW/HPF Urine Hemoglobin NEGATIVEmg/dL Urine Glucose NEGATIVEmg/dL Urine Total Protein 2+mg/dl Current Medications Medications (Trade) Dose Ordered Sig/Amita Route PRN Reason Start Time Stop Time Status Last Admin Dose Admin Vancomycin HCl 250 ml @ 125 mls/hr ONCE ONCE IVPB 05/31/17 16:30 05/31/17 18:29 DC 05/31/17 17:33 Piperacillin Sod/ Tazobactam Sod (Zosyn 3.375gm/ 100 ml (Pmx)) 100 ml @ 200 mls/hr ONCE STAT IVPB 05/31/17 16:07 05/31/17 16:36 DC 05/31/17 17:04 Furosemide 20 mg 20 mg ONCE ONCE IV 05/31/17 18:30 05/31/17 18:31 DC Sodium Chloride (NS) 1,000 ml @ 1,000 mls/hr Q1H ONCE IV 05/31/17 18:30 05/31/17 19:29 Sodium Chloride (NS) 2,480 ml BOLUS OVER 2 HOURS STAT IV* 05/31/17 18:55 05/31/17 18:59 DC Ondansetron HCl (Zofran Inj) 4 mg ER BRIDGE PRN IV NAUSEA AND/OR VOMITING 05/31/17 19:00 06/01/17 18:59 Acetaminophen (Tylenol Tab) 650 mg ER BRIDGE PRN PO MILD PAIN/FEVER 05/31/17 19:00 06/01/17 18:59 Procedures/MDM Patient with sepsis with unknown infectious source. Is febrile with increased white count and tachycardia. Has no symptoms or evidence of pneumonia, urine has a few bacteria and a few cells but negative leukocyte esterase. This is a possible source. She does not have abdominal pain for abdominal CT is not warranted. Does have elevated potassium for which I gave her 20 mill grams of Lasix that she easily still makes urine. Does have acute on chronic renal failure and will likely be dialyzed tomorrow. Did give her 30 cc/kg of IV fluid as well as vancomycin and Zosyn for treatment of this healthcare acquired infection causing sepsis. Patient is feeling somewhat better after fluid resuscitation. Spoke with Dr. Ramos who will be admitting the patient. EKG interpretation: Paced rhythm rate of 108, QT of 517, QRS duration of 180. No obvious signs of cardiac ischemia based on his paced rhythm. wicker worker interpretation: Tachycardia without arrhythmia Chest x-ray interpretation: I see no acute process, see no pulmonary edema, no infiltrates, no pneumothorax, no fractures Departure Diagnosis: Primary Impression: Sepsis Additional Impressions: Hyperkalemia Acute on chronic renal failure Anemia Generalized weakness Febrile illness, acute Condition: Serious NOELMAYACASPER DO May 31, 2017 19:13
[2017-05-31] MEDS ORDERED: DOCUSATE SODIUM 100 MG CAP PO PRN ×2 (20:00→23:30)
[2017-05-31] MEDS ORDERED: ALBUTEROL 0.083% (NEB) 2.5 MG/3 ML AMP HHN SCH (20:00)
[2017-05-31] MEDS ORDERED: NA POLYST SULFON 15 GM/60 ML BTL PO ONE (20:30)
[2017-05-31] MEDS ORDERED: PANTOPRAZOLE (EC) 40 MG TAB PO SCH (21:00)
[2017-05-31] MEDS: INSULIN DETEMIR [LEVEMIR] 3ML CART SC SCH (21:53)
[2017-05-31 21:56] VITALS: TEMP 99
[2017-05-31] MEDS: CALCIUM ACETATE 667 MG CAP PO SCH (21:59)
[2017-05-31 22:12] VITALS: PULSE 90
[2017-05-31 22:43] VITALS: BP 100/45; RESP 20
--- NOTE | 2017-05-31 23:11 | QN ---
Documentation Comment [id number] JEFF RAMOS MD May 31, 2017 23:11
[2017-05-31] MEDS ORDERED: NACL 0.9% 3 ML SYG IV SCH (23:30)
[2017-05-31] MEDS ORDERED: HYDROCODONE/APAP (5/325) TAB PO PRN (23:30)
[2017-05-31] MEDS ORDERED: BISACODYL (EC) 5 MG TAB PO PRN (23:30)
[2017-05-31] MEDS ORDERED: ZOLPIDEM 5 MG TAB PO PRN (23:30)
[2017-05-31 23:36] VITALS: Ht 165.1 cm; Wt 80.0 kg
[2017-06-01] VITALS (19 sets, daily range): BP systolic 94–131; BP diastolic 51–74; PULSE 76–95; RESP 16–21
[2017-06-01] MEDS: ALBUTEROL 0.083% (NEB) 2.5 MG/3 ML AMP HHN SCH ×4 (02:06→20:50)
[2017-06-01 03:18] LABS: BASOPHILS % 0.1 % (0.0-2.0); HEMOGLOBIN 11.3 g/dl (12.0-16.0); LYMPHOCYTES # 1.2 10^3/ul (0.8-2.9); LYMPHOCYTES % 5.8 % (15.0-51.0); MEAN CORPUSCULAR HEMOGLOBIN 33.3 pg (29.0-33.0); MEAN CORPUSCULAR HGB CONC 33.2 g/dl (32.0-37.0); MEAN CORPUSCULAR VOLUME 100.3 fl (82.0-101.0); MEAN PLATELET VOLUME 9.9 fl (7.4-10.4); MONOCYTE # 0.9 10^3/ul (0.3-0.9); MONOCYTES % 4.6 % (0.0-11.0); NEUTROPHIL # 18.2 10^3/ul (1.6-7.5); NEUTROPHILS % 88.8 % (39.0-77.0); PLATELET COUNT 173 10^3/UL (140-415); RED BLOOD COUNT 3.39 10^6/ul (4.20-5.40); RED CELL DISTRIBUTION WIDTH 13.7 % (11.5-14.5); WHITE BLOOD COUNT 20.5 10^3/ul (4.8-10.8)
[2017-06-01 03:41] LABS: CREATININE 10.88 mg/dl (0.44-1.00); POTASSIUM 5.6 mmol/L (3.5-5.1)
[2017-06-01] MEDS: PANTOPRAZOLE (EC) 40 MG TAB PO SCH (05:46)
--- NOTE | 2017-06-01 08:42 | HP ---
DATE OF ADMISSION: 05/31/2017 HISTORY OF PRESENT ILLNESS: The patient is an elderly female who has history of hypertension, diabetes mellitus, recently discharged from this hospital with diagnosis of hypoxic respiratory distress. Patient has tracheobronchitis, diabetes, lung infiltrate, bronchiectasis, ESRD, hypertension, hypovolemia, anemia, history of ____ pacemaker placement, presented with fever, cough, short of breath still. The patient seen in the emergency room and noted to have complaints of feeling generalized weakness, malaise. Blood pressure 152/66, temperature recorded as 102.9 _ and patient's WBC 16.5, hematocrit 36.7, potassium 6, sodium 138, receiving kayexalate. PAST MEDICAL HISTORY: Positive for ESRD, hypertension, diabetes mellitus, CAD, atherosclerotic heart disease, CHF, pneumonia, bronchiectasis, bronchitis, pacemaker placement, hypophosphatemia, anemia and leukocytosis. ALLERGY HISTORY: NEGATIVE. FAMILY HISTORY: Negative. SOCIAL HISTORY: Negative. MEDICATION HISTORY: The patient at home is on: 1. ____. 2. Aspirin. 3. Calcium acetate. 4. Clonidine. 5. Docusate sodium. 6. Pepcid. 7. Folic acid. 8. Hydralazine. 9. Insulin. 10. Humalog. 11. Metoprolol. 12. Protonix. 13. Atrovent. REVIEW OF SYSTEMS: HEENT: Unremarkable. RESPIRATORY: Unremarkable except mild short of breath. CARDIOVASCULAR: S1, S2 _. ABDOMEN: Dyspepsia. EXTREMITIES: No swelling. CENTRAL NERVOUS SYSTEM: Unremarkable. PHYSICAL EXAMINATION: GENERAL: The patient is awake, alert. VITAL SIGNS: Stable. Pulse of 86, blood pressure 136/50. HEENT: Head is atraumatic, normocephalic. Pupils are equal, reactive. NECK: Supple, no JVD. LUNGS: A few rhonchi. CARDIOVASCULAR: S1, S2 normal. ABDOMEN: Soft, obese, bowel sounds present, no palpable mass. EXTREMITIES: No cyanosis, clubbing. Edema positive. CENTRAL NERVOUS SYSTEM: The patient is awake, alert. No focal deficit. SKIN: Pacemaker noted in the left chest DIAGNOSTIC DATA: . Chest x-ray shows atherosclerosis, permanent pacemaker. IMPRESSION: 1. Systemic inflammatory response syndrome. 2. Patient has end-stage renal disease. 3. Hypertension. 4. Diabetes mellitus. 5. Hyperkalemia. 6. Atherosclerotic heart disease. 7. Dyslipidemia. 8. History of pacemaker placement. 9. History of congestive heart failure. 10. History of pneumonia. PLAN: Give this patient empiric antibiotic, continue home medication, bronchodilators, kayexalate, hemodialysis will be ordered. Dictated By: JEFF RAMOS MD BS/VAL Conf#: [id number] DID#: [id number] MTDD
[2017-06-01] MEDS ORDERED: CEFTRIAXONE 1 GM/50 ML (PMX) 50 ML IVPB SCH (09:00)
[2017-06-01] MEDS: CALCIUM ACETATE 667 MG CAP PO SCH ×3 (09:00→20:41)
[2017-06-01] MEDS: FAMOTIDINE 20 MG TAB PO SCH (12:07)
[2017-06-01] MEDS: FOLIC ACID 1 MG TAB PO SCH (12:08)
[2017-06-01] MEDS: METOPROLOL (XL) 25 MG TAB PO SCH (12:09)
[2017-06-01] MEDS: ASPIRIN (EC) 81 MG TAB PO SCH (12:09)
[2017-06-01] MEDS: ENOXAPARIN 30 MG/0.3 ML SYG SC SCH (12:12)
--- NOTE | 2017-06-01 15:41 | PN ---
Date/Time of Note Date/Time of Note DATE: 06/01/17 TIME: 15:35 Assessment/Plan VTE Prophylaxis VTE Prophylaxis Intervention: heparin Lines/Catheters IV [facility] [place] [facility] Urinary Cath still in place: No Assessment/Plan Chief Complaint/Hosp Course 66 y/o with 1 Systemic inflammatory response syndrome with leukocytosis? source ? bronchitis. Pt had CT chest in 04/23 with bronchiolitis and bronchiectasis vs UTI 2. Patient has end-stage renal disease with RUE fistula 3. Hypertension. 4. Diabetes mellitus. 5. Hyperkalemia. 6. Atherosclerotic heart disease. 7. Dyslipidemia. 8. History of pacemaker placement. 9. History of congestive heart failure. 10. History of pneumonia. 11 Leukocytosis 20 12 Lactic acidosis improved Recs - Ucx pending - bld cx pending - switch to cefepime - Add Vancomycin( pacemaker in chest) - HD today - c/w ASA/MTP/ Hydralazine - Bronchodilators - ID consult Problems: Subjective 24 Hr Interval Summary Free Text/Dictation Pt feels weak, tired slighly better since admission Fever 99 Exam/Review of Systems Vital Signs Vitals Vital Signs Date Time Temp Pulse Resp B/P Pulse Ox O2 Delivery O2 Flow Rate FiO2 06/01/17 15:32 99.0 84 18 125/60 99 06/01/17 13:17 Nasal Cannula 2.0 Intake and Output 05/31/17 05/31/17 06/01/17 15:00 23:00 07:00 Intake Total 500 ml Output Total 0 ml Balance 500 ml Exam GENERAL: The patient is awake, alert. HEENT: Head is atraumatic, normocephalic. Pupils are equal, reactive. NECK: Supple, no JVD. LUNGS: A few rhonchi. CARDIOVASCULAR: S1, S2 normal. ABDOMEN: Soft, obese, bowel sounds present, no palpable mass. EXTREMITIES: No cyanosis, clubbing. Edema positive. CENTRAL NERVOUS SYSTEM: The patient is awake, alert. No focal deficit. SKIN: Pacemaker noted in the left chest Results Result Diagram: 06/01/17 0302 06/01/17 0302 Results 24 hrs Laboratory Tests Test 05/31/17 16:20 05/31/17 17:00 05/31/17 22:49 06/01/17 00:32 White Blood Count 16.5 #H Red Blood Count 3.70 L Hemoglobin 11.9 L Hematocrit 36.7 L Mean Corpuscular Volume 99.2 Mean Corpuscular Hemoglobin 32.2 Mean Corpuscular Hemoglobin Concent 32.4 Red Cell Distribution Width 13.6 Platelet Count 203 Mean Platelet Volume 10.0 Neutrophils % 91.6 H Lymphocytes % 2.6 L Monocytes % 5.0 Eosinophils % 0.1 Basophils % 0.1 Nucleated Red Blood Cells % 0.0 Neutrophils # 15.1 H Lymphocytes # 0.4 L Monocytes # 0.8 Eosinophils # 0.0 Basophils # 0.0 Nucleated Red Blood Cells # 0.0 Prothrombin Time 13.3 Prothrombin Time Ratio 1.0 INR International Normalized Ratio 1.01 Activated Partial Thromboplast Time 35.2 H Sodium Level 138 Potassium Level 6.0 H Chloride Level 96 L Carbon Dioxide Level 23 Anion Gap 25 H Blood Urea Nitrogen 70 H Creatinine 10.21 H Glucose Level 116 Lactic Acid Level 2.4 *H 2.9 *H Calcium Level 9.3 Total Bilirubin 0.2 Direct Bilirubin 0.00 Indirect Bilirubin 0.2 Aspartate Amino Transf (AST/SGOT) 31 Alanine Aminotransferase (ALT/SGPT) 20 Alkaline Phosphatase 129 H Troponin I 0.076 Total Protein 9.2 H Albumin 4.7 Globulin 4.50 H Albumin/Globulin Ratio 1.04 Urine Color YELLOW Urine Clarity CLEAR Urine pH 9.0 Urine Specific [place] 1.012 Urine Ketones NEGATIVE Urine Nitrite NEGATIVE Urine Bilirubin NEGATIVE Urine Urobilinogen NEGATIVE Urine Leukocyte Esterase NEGATIVE Urine Microscopic RBC 1 Urine Microscopic WBC 3 Urine Bacteria FEW A Urine Hemoglobin NEGATIVE Urine Glucose NEGATIVE Urine Total Protein 2+ H Bedside Glucose 110 Test 06/01/17 03:02 06/01/17 05:43 White Blood Count 20.5 #H Red Blood Count 3.39 L Hemoglobin 11.3 L Hematocrit 34.0 L Mean Corpuscular Volume 100.3 Mean Corpuscular Hemoglobin 33.3 H Mean Corpuscular Hemoglobin Concent 33.2 Red Cell Distribution Width 13.7 Platelet Count 173 Mean Platelet Volume 9.9 Neutrophils % 88.8 H Lymphocytes % 5.8 L Monocytes % 4.6 Eosinophils % 0.0 Basophils % 0.1 Nucleated Red Blood Cells % 0.0 Neutrophils # 18.2 H Lymphocytes # 1.2 Monocytes # 0.9 Eosinophils # 0.0 Basophils # 0.0 Nucleated Red Blood Cells # 0.0 Sodium Level 136 Potassium Level 5.6 H Chloride Level 96 L Carbon Dioxide Level 28 Anion Gap 18 #H Blood Urea Nitrogen 76 H Creatinine 10.88 H Glucose Level 174 Lactic Acid Level 1.9 1.9 Calcium Level 9.0 Medications Medications Current Medications Aspirin (Halfprin) 81 mg DAILY PO Last administered on 06/01/17 12:09; Admin Dose 81 MG; Start 06/01/17 at 09:00 Calcium Acetate (Phoslo) 2,001 mg TID PO Last administered on 06/01/17 12:08 ; Admin Dose 2,001 MG; Start 05/31/17 at 21:00 Clonidine (Catapres) 0.1 mg TID PO ; Start 05/31/17 at 21:00 Docusate Sodium (Colace) 100 mg Q12H PRN PO CONSTIPATION; Start 05/31/17 at 20 :00 Famotidine (Pepcid) 20 mg DAILY PO Last administered on 06/01/17 12:07; Admin Dose 20 MG; Start 06/01/17 at 09:00 Folic Acid (Folic Acid) 1 mg DAILY PO Last administered on 06/01/17 12:08; Admin Dose 1 MG; Start 06/01/17 at 09:00 Hydralazine HCl (Apresoline) 75 mg TID PO ; Start 05/31/17 at 21:00 Insulin Detemir (Levemir) 18 unit HS SC Last administered on 05/31/17 21:53; Admin Dose 18 UNIT; Start 05/31/17 at 21:00 Metoprolol Succinate 25 mg 25 mg DAILY PO Last administered on 06/01/17 12:09 ; Admin Dose 25 MG; Start 06/01/17 at 09:00 Ceftriaxone Sodium (Rocephin) 50 ml @ 100 mls/hr DAILY IVPB Last administered on 06/01/17 12:09; Admin Dose 100 MLS/HR; Start 06/01/17 at 09:00 Ondansetron HCl (Zofran Inj) 4 mg Q6H PRN IV NAUSEA AND/OR VOMITING; Start at 23:30 Acetaminophen (Tylenol Tab) 650 mg Q6H PRN PO PAIN LEVEL 1-3 OR FEVER Last administered on 06/01/17 04:20; Admin Dose 650 MG; Start 05/31/17 at 23:30 Acetaminophen/ Hydrocodone Bitart ([place] (5/325)) 1 tab Q6H PRN PO MODERATE PAIN LEVEL 4-6; Start 05/31/17 at 23:30 Docusate Sodium (Colace) 100 mg Q12H PRN PO CONSTIPATION; Start 05/31/17 at 23 :30 Bisacodyl (Dulcolax) 5 mg DAILY PRN PO CONSTIPATION; Start 05/31/17 at 23:30 Zolpidem Tartrate (Ambien) 5 mg QHS PRN PO SLEEP; Start 05/31/17 at 23:30 Pantoprazole (Protonix Tab) 40 mg DAILY@06 PO Last administered on 06/01/17 05:46; Admin Dose 40 MG; Start 06/01/17 at 06:00 Enoxaparin Sodium (Lovenox) 30 mg DAILY SC Last administered on 06/01/17 12: 12; Admin Dose 30 MG; Start 06/01/17 at 09:00 ELIANA NEELY MD Jun 01, 2017 15:40
[2017-06-01] MEDS ORDERED: AMIKACIN IV PER PHARMACY XX SCH (17:00)
[2017-06-01] MEDS ORDERED: CEFEPIME 1GM/50 ML (PMX) 50 ML IVPB SCH (18:00)
[2017-06-01] MEDS ORDERED: AMIKACIN 500 MG in SOD CHLORIDE 0.9% 100 ML IVPB SCH ×4 (18:30)
--- NOTE | 2017-06-01 20:13 | CONS ---
DATE OF ADMISSION: 05/31/2017 DATE OF CONSULTATION: 06/01/2017 TYPE OF CONSULTATION: Infectious disease. REASON FOR CONSULTATION: Antibiotic management. HISTORY OF PRESENT ILLNESS: Yael Antonie is a 66-year-old female with a number of problems who co mes in now with generalized weakness and fever and chills and is being seen for antibiotic managemen t. Her past problems include: 1. End-stage renal disease, on hemodialysis. 2. AV fistula in the right upper extremity. 3. Hypertension. 4. Diabetes mellitus. 5. Coronary artery disease. 6. Congestive heart failure. 7. History of pneumonia and bronchitis. 8. Bronchiectasis. 9. Status post pacemaker placement. 10. Hypophosphatemia. 11. Obesity. Acutely, the patient comes in with fever and chills. She was recently discharged from the hospital with a diagnosis of hypoxic respiratory distress. She had tracheobronchitis at that time as well as pulmonary infiltrate. In the emergency room now, she had generalized weakness, malaise, a temperat ure of 102.9, her white count was 16.5, H and H of 11.9 and 36.7, platelet count of 203,000. Today, her white count is up to 20.5. Her BUN and creatinine are 76/10.88, but as noted, she is a dialysi s patient. On admission, her lactic acid was 2.4. Her alkaline phosphatase was 129, slightly eleva brannon. Urine was negative for nitrite and leukocyte esterase. Her urine culture is growing out Staph species which is probable contaminant. She was given cefepime. Her chest x-ray showed atheroscler osis, permanent pacemaker and clear lungs. She also has the dual-lead permanent pacemaker. PAST MEDICAL HISTORY: Operations as outlined. FAMILY HISTORY: Noncontributory. SOCIAL HISTORY: She does not smoke, drink or abuse drugs. ALLERGIES: NONE TO PENICILLIN, SULFA OR FOODS. MEDICATIONS: Per chart. REVIEW OF SYSTEMS: As per HPI. PHYSICAL EXAMINATION: GENERAL: The patient is a well-developed, markedly obese female who is alert, responsive, in no acu te distress. VITAL SIGNS: Stable. Her T-max is 100.1. SKIN: Without generalized rash. HEENT: Within normal limits. NECK: Supple. LYMPH NODES: None palpable. CHEST: Decreased breath sounds at the bases. HEART: Without murmur or gallop. ABDOMEN: Soft, nontender, without organosplenomegaly or masses. EXTREMITIES: Without cyanosis, clubbing or edema. RECTAL AND GENITAL: Deferred. NEUROLOGIC: No focal neurological abnormalities. IMPRESSION AND PLAN: The patient comes in with fever and leukocytosis, etiology of which is unclear . She has had urine culture and 2 sets of blood cultures. She is currently on cefepime, and she re ceived 1 dose of vancomycin. I am going to put her on amikacin, pharmacy to dose because she is a d ialysis patient. I will dictate my findings to Dr. Leonardo and Dr. Moya. Dictated By: LIDA GARBER MD, JD/VAL Conf#: [id number] DID#: [id number]
[2017-06-01] MEDS: INSULIN DETEMIR [LEVEMIR] 3ML CART SC SCH (20:44)
[2017-06-02] VITALS (13 sets, daily range): BP systolic 98–118; BP diastolic 52–61; PULSE 72–94; RESP 18–20
[2017-06-02] MEDS: ALBUTEROL 0.083% (NEB) 2.5 MG/3 ML AMP HHN SCH ×4 (02:00→19:54)
[2017-06-02] MEDS: PANTOPRAZOLE (EC) 40 MG TAB PO SCH (05:41)
[2017-06-02] MEDS ORDERED: AMIKACIN 325 MG in SOD CHLORIDE 0.9% 100 ML IVPB SCH (09:00)
[2017-06-02] MEDS: FAMOTIDINE 20 MG TAB PO SCH (09:47)
[2017-06-02] MEDS: METOPROLOL (XL) 25 MG TAB PO SCH (09:48)
[2017-06-02] MEDS: FOLIC ACID 1 MG TAB PO SCH (09:48)
[2017-06-02] MEDS: ASPIRIN (EC) 81 MG TAB PO SCH (09:49)
[2017-06-02] MEDS: CALCIUM ACETATE 667 MG CAP PO SCH ×3 (09:58→20:30)
[2017-06-02] MEDS: ENOXAPARIN 30 MG/0.3 ML SYG SC SCH (10:01)
[2017-06-02 10:04] LABS: BASOPHILS % 0.2 % (0.0-2.0); EOSINOPHILS # 0.2 10^3/ul (0.0-0.5); EOSINOPHILS % 1.6 % (0.0-7.0); HEMATOCRIT 34.6 % (37.0-47.0); HEMOGLOBIN 10.9 g/dl (12.0-16.0); LYMPHOCYTES % 9.3 % (15.0-51.0); MEAN CORPUSCULAR HEMOGLOBIN 32.4 pg (29.0-33.0); MEAN CORPUSCULAR HGB CONC 31.5 g/dl (32.0-37.0); MEAN PLATELET VOLUME 10.5 fl (7.4-10.4); MONOCYTE # 1.1 10^3/ul (0.3-0.9); NEUTROPHIL # 8.6 10^3/ul (1.6-7.5); NEUTROPHILS % 78.5 % (39.0-77.0); PLATELET COUNT 151 10^3/UL (140-415); RED BLOOD COUNT 3.36 10^6/ul (4.20-5.40); RED CELL DISTRIBUTION WIDTH 13.5 % (11.5-14.5)
[2017-06-02 10:48] LABS: CREATININE 9.56 mg/dl (0.44-1.00); POTASSIUM 4.3 mmol/L (3.5-5.1)
[2017-06-02 10:53] LABS: PHOSPHORUS 8.3 mg/dl (2.5-4.9)
--- NOTE | 2017-06-02 11:31 | PN ---
Date/Time of Note Date/Time of Note DATE: 06/02/17 TIME: 11:29 Assessment/Plan VTE Prophylaxis VTE Prophylaxis Intervention: anti-embolic stocking Lines/Catheters [facility] Sal[facility] Lock Urinary Cath still in place: No Assessment/Plan Chief Complaint/Hosp Course 1. Systemic inflammatory response syndrome 2. End-stage renal disease with RUE fistula 3. Hypertension,controlled. 4. Diabetes mellitus, controlled. 5. Hyperkalemia. 6. Atherosclerotic heart disease. 7. Dyslipidemia. 8. History of pacemaker placement. 9. History of congestive heart failure. 10. History of pneumonia. 11. UTi Problems: Assessment/Plan 1. continue HD 2. continue a/b 3. Dr Musa is following Subjective 24 Hr Interval Summary Constitutional: improved, no complaints Exam/Review of Systems Vital Signs Vitals Vital Signs Date Time Temp Pulse Resp B/P Pulse Ox O2 Delivery O2 Flow Rate FiO2 06/02/17 11:20 98.3 100 18 101/54 95 06/02/17 07:56 Nasal Cannula 2.0 Intake and Output 06/01/17 06/01/17 06/02/17 15:00 23:00 07:00 Intake Total 400 ml 1800 ml 750 ml Output Total 3400 ml Balance -3000 ml 1800 ml 750 ml Exam Constitutional: alert, oriented Neck: supple Respiratory: diminished breath sounds Cardiovascular: other (paced) Results Result Diagram: 06/02/17 0906 06/02/17 0906 Results 24 hrs Laboratory Tests Test 06/01/17 20:38 06/02/17 09:06 06/02/17 11:23 Bedside Glucose 101 125 White Blood Count 11.0 #H Red Blood Count 3.36 L Hemoglobin 10.9 L Hematocrit 34.6 L Mean Corpuscular Volume 103.0 H Mean Corpuscular Hemoglobin 32.4 Mean Corpuscular Hemoglobin Concent 31.5 L Red Cell Distribution Width 13.5 Platelet Count 151 Mean Platelet Volume 10.5 H Neutrophils % 78.5 H Lymphocytes % 9.3 L Monocytes % 10.0 Eosinophils % 1.6 Basophils % 0.2 Nucleated Red Blood Cells % 0.0 Neutrophils # 8.6 H Lymphocytes # 1.0 Monocytes # 1.1 H Eosinophils # 0.2 Basophils # 0.0 Nucleated Red Blood Cells # 0.0 Sodium Level 139 Potassium Level 4.3 Chloride Level 92 L Carbon Dioxide Level 28 Anion Gap 23 H Blood Urea Nitrogen 57 H Creatinine 9.56 H Glucose Level 66 #L Calcium Level 9.0 Phosphorus Level 8.3 H Magnesium Level 2.0 Medications Medications Current Medications Aspirin (Halfprin) 81 mg DAILY PO Last administered on 06/02/17 09:49; Admin Dose 81 MG; Start 06/01/17 at 09:00 Calcium Acetate (Phoslo) 2,001 mg TID PO Last administered on 06/02/17 09:58 ; Admin Dose 2,001 MG; Start 05/31/17 at 21:00 Clonidine (Catapres) 0.1 mg TID PO Last administered on 06/01/17 20:40; Admin Dose 0.1 MG; Start 05/31/17 at 21:00 Famotidine (Pepcid) 20 mg DAILY PO Last administered on 06/02/17 09:47; Admin Dose 20 MG; Start 06/01/17 at 09:00 Folic Acid (Folic Acid) 1 mg DAILY PO Last administered on 06/02/17 09:48; Admin Dose 1 MG; Start 06/01/17 at 09:00 Hydralazine HCl (Apresoline) 75 mg TID PO Last administered on 06/01/17 20:41 ; Admin Dose 75 MG; Start 05/31/17 at 21:00 Insulin Detemir (Levemir) 18 unit HS SC Last administered on 06/01/17 20:44; Admin Dose 18 UNIT; Start 05/31/17 at 21:00 Metoprolol Succinate (Toprol Xl) 25 mg DAILY PO Last administered on 09:48; Admin Dose 25 MG; Start 06/01/17 at 09:00 Ondansetron HCl (Zofran Inj) 4 mg Q6H PRN IV NAUSEA AND/OR VOMITING; Start at 23:30 Acetaminophen (Tylenol Tab) 650 mg Q6H PRN PO PAIN LEVEL 1-3 OR FEVER Last administered on 06/01/17 04:20; Admin Dose 650 MG; Start 05/31/17 at 23:30 Acetaminophen/ Hydrocodone Bitart ([place] (5/325)) 1 tab Q6H PRN PO MODERATE PAIN LEVEL 4-6; Start 05/31/17 at 23:30 Docusate Sodium (Colace) 100 mg Q12H PRN PO CONSTIPATION; Start 05/31/17 at 23 :30 Bisacodyl (Dulcolax) 5 mg DAILY PRN PO CONSTIPATION; Start 05/31/17 at 23:30 Zolpidem Tartrate (Ambien) 5 mg QHS PRN PO SLEEP; Start 05/31/17 at 23:30 Pantoprazole (Protonix Tab) 40 mg DAILY@06 PO Last administered on 06/02/17 05:41; Admin Dose 40 MG; Start 06/01/17 at 06:00 Enoxaparin Sodium 30 mg 30 mg DAILY SC Last administered on 06/02/17 10:01; Admin Dose 30 MG; Start 06/01/17 at 09:00 Cefepime HCl (Maxipime 1gm/50 ml (Pmx)) 50 ml @ 100 mls/hr Q24H IVPB Last administered on 06/01/17 17:58; Admin Dose 100 MLS/HR; Start 06/01/17 at 18: 00 Amikacin Sulfate (Amikacin Iv Per Pharmacy) AMIKACIN PER PHARMACY NOTE XX ; Start 06/01/17 at 17:00 JANE MARIE Jun 02, 2017 11:31
--- NOTE | 2017-06-02 13:46 | PN ---
DATE: 06/02/2017 SUBJECTIVE: The patient is alert, feels good. Denies pain, discomfort. No fevers. LABORATORY: WBC today 11, platelets 151, neutrophils 78.5. INDWELLING: The patient has a right upper extremity AV fistula. MICROBIOLOGY: Blood cultures since admission negative. Urine culture growing coag-negative Staph s pecies. DIAGNOSTICS: Chest x-ray on admission revealed clear lungs, permanent pacemaker present. ANTIMICROBIALS: The patient is on amikacin and cefepime, status post vanc and Zosyn. PHYSICAL EXAMINATION: GENERAL: This is a well-developed, well-nourished, elderly woman who is alert, in no distress. HEENT: Head atraumatic, normocephalic. Sclerae anicteric. Buccal mucosa dry. NECK: Supple. CHEST: Rise symmetrical. Breath sounds diminished at bases. HEART: S1, S2. ABDOMEN: Soft, bowel tones present. EXTREMITIES: Without cyanosis. ASSESSMENT: 1. Systemic inflammatory response syndrome with fevers and leukocytosis, etiology unclear. 2. End-stage renal disease. 3. Right upper extremity arteriovenous fistula. 4. Diabetes. 5. Coronary artery disease with a history of permanent pacemaker placement. 6. History of pneumonia and bronchitis. PLAN: The patient remains stable. White blood cell count tracing down. Cultures have been negativ e so far. Urine culture grew coag-negative Staph species consistent with contaminant. We are going to repeat urine culture and chest x-ray in a.m. Discontinue cefepime. Continue amikacin for now. Dictated By: ADEOLA BRYAN [employer] for [employer]IDA DUONG/VAL Conf#: [id number] DID#: [id number]
--- NOTE | 2017-06-02 17:17 | RADRPT ---
PROCEDURE: XR Chest. CLINICAL INDICATION: Shortness of breath. TECHNIQUE: Single frontal view. COMPARISON: 05/31/2017. FINDINGS: There is mild atelectasis at the lung bases. The lungs are otherwise clear. The heart size is normal. There is a left-sided dual lead permanent pacemaker. There is no pleural effusion. There is no pneumothorax. IMPRESSION: 1. Mild atelectasis at the lung bases. 2. Permanent pacemaker. RPTAT: QQ .Shine Ragland MD, Date Time Electronically viewed and signed by .Shine Ragland MD, on 06/02/2017 17:17 .R/
[2017-06-02] MEDS: INSULIN ASPART [NOVOLOG] 3 ML PEN SC SCH (20:29)
[2017-06-02] MEDS ORDERED: GLUCOSE GEL 15 GRAM TUBE PO PRN ×2 (20:30)
[2017-06-02] MEDS ORDERED: GLUCOSE GEL 15 GRAM TUBE BUCCAL PRN (20:30)
[2017-06-02] MEDS ORDERED: DEXTROSE 50% 50 ML SYRINGE IV PRN ×2 (20:30)
[2017-06-02] MEDS ORDERED: GLUCAGON 1 MG INJ IM PRN (20:30)
[2017-06-02] MEDS: INSULIN DETEMIR [LEVEMIR] 3ML CART SC SCH (20:31)
[2017-06-03] VITALS (18 sets, daily range): BP systolic 115–146; BP diastolic 57–69; PULSE 69–82; RESP 18–20
[2017-06-03] MEDS: ALBUTEROL 0.083% (NEB) 2.5 MG/3 ML AMP HHN SCH ×4 (01:42→20:13)
[2017-06-03] MEDS: ACCU-CHEK XX SCH (02:00)
[2017-06-03] MEDS ORDERED: ACCU-CHEK XX SCH (02:00)
[2017-06-03] MEDS: PANTOPRAZOLE (EC) 40 MG TAB PO SCH ×2 (05:28→10:02)
[2017-06-03 07:57] LABS: BASOPHILS % 0.4 % (0.0-2.0); EOSINOPHILS # 0.4 10^3/ul (0.0-0.5); EOSINOPHILS % 7.1 % (0.0-7.0); HEMATOCRIT 32.7 % (37.0-47.0); HEMOGLOBIN 10.2 g/dl (12.0-16.0); LYMPHOCYTES # 0.8 10^3/ul (0.8-2.9); LYMPHOCYTES % 14.2 % (15.0-51.0); MEAN CORPUSCULAR HEMOGLOBIN 31.3 pg (29.0-33.0); MEAN CORPUSCULAR HGB CONC 31.2 g/dl (32.0-37.0); MEAN CORPUSCULAR VOLUME 100.3 fl (82.0-101.0); MEAN PLATELET VOLUME 10.2 fl (7.4-10.4); MONOCYTE # 0.8 10^3/ul (0.3-0.9); MONOCYTES % 14.2 % (0.0-11.0); NEUTROPHIL # 3.5 10^3/ul (1.6-7.5); NEUTROPHILS % 63.7 % (39.0-77.0); PLATELET COUNT 171 10^3/UL (140-415); RED BLOOD COUNT 3.26 10^6/ul (4.20-5.40); RED CELL DISTRIBUTION WIDTH 13.3 % (11.5-14.5); WHITE BLOOD COUNT 5.5 10^3/ul (4.8-10.8)
[2017-06-03] MEDS: INSULIN ASPART [NOVOLOG] 3 ML PEN SC SCH ×4 (08:00→20:49)
[2017-06-03 08:23] LABS: CALCIUM 8.6 mg/dl (8.4-10.2); CREATININE 11.41 mg/dl (0.44-1.00); POTASSIUM 5.1 mmol/L (3.5-5.1)
[2017-06-03] MEDS: CALCIUM ACETATE 667 MG CAP PO SCH ×3 (10:01→20:40)
[2017-06-03] MEDS: FOLIC ACID 1 MG TAB PO SCH (10:02)
[2017-06-03] MEDS: ASPIRIN (EC) 81 MG TAB PO SCH (10:02)
[2017-06-03] MEDS: FAMOTIDINE 20 MG TAB PO SCH (10:02)
[2017-06-03] MEDS: METOPROLOL (XL) 25 MG TAB PO SCH (10:03)
[2017-06-03] MEDS: ENOXAPARIN 30 MG/0.3 ML SYG SC SCH (10:18)
--- NOTE | 2017-06-03 12:30 | PN ---
Date/Time of Note Date/Time of Note DATE: 06/03/17 TIME: 12:29 Assessment/Plan VTE Prophylaxis VTE Prophylaxis Intervention: ambulation Lines/Catheters IV [facility]from [facility] Saline Lock Urinary Cath still in place: No Assessment/Plan Chief Complaint/Hosp Course 1. Systemic inflammatory response syndrome 2. End-stage renal disease with RUE fistula 3. Hypertension,controlled. 4. Diabetes mellitus, controlled. 5. Hyperkalemia. 6. Atherosclerotic heart disease. 7. Dyslipidemia. 8. History of pacemaker placement. 9. History of congestive heart failure. 10. History of pneumonia. 11. UTi, resolved Problems: Assessment/Plan 1. continue HD 2. Continue a/b 3. Much improvement Subjective 24 Hr Interval Summary Constitutional: improved, no complaints Exam/Review of Systems Vital Signs Vitals Vital Signs Date Time Temp Pulse Resp B/P Pulse Ox O2 Delivery O2 Flow Rate FiO2 06/03/17 12:20 69 06/03/17 11:53 98.2 18 122/57 94 06/03/17 08:01 Nasal Cannula 2.0 Intake and Output 06/02/17 06/02/17 06/03/17 15:00 23:00 07:00 Intake Total 360 ml 120 ml Balance 360 ml 120 ml Exam Constitutional: alert, oriented Neck: supple Respiratory: clear to auscultation Cardiovascular: regular rate and rhythm Results Result Diagram: 06/03/17 0729 06/03/17 0729 Results 24 hrs Laboratory Tests Test 06/02/17 20:28 06/03/17 07:29 06/03/17 09:00 06/03/17 12:11 Bedside Glucose 134 74 106 White Blood Count 5.5 # Red Blood Count 3.26 L Hemoglobin 10.2 L Hematocrit 32.7 L Mean Corpuscular Volume 100.3 Mean Corpuscular Hemoglobin 31.3 Mean Corpuscular Hemoglobin Concent 31.2 L Red Cell Distribution Width 13.3 Platelet Count 171 Mean Platelet Volume 10.2 Neutrophils % 63.7 Lymphocytes % 14.2 L Monocytes % 14.2 H Eosinophils % 7.1 H Basophils % 0.4 Nucleated Red Blood Cells % 0.0 Neutrophils # 3.5 Lymphocytes # 0.8 Monocytes # 0.8 Eosinophils # 0.4 Basophils # 0.0 Nucleated Red Blood Cells # 0.0 Sodium Level 138 Potassium Level 5.1 Chloride Level 95 L Carbon Dioxide Level 28 Anion Gap 20 H Blood Urea Nitrogen 83 H Creatinine 11.41 H Glucose Level 94 Calcium Level 8.6 Medications Medications Current Medications Aspirin (Halfprin) 81 mg DAILY PO Last administered on 06/03/17 10:02; Admin Dose 81 MG; Start 06/01/17 at 09:00 Calcium Acetate (Phoslo) 2,001 mg TID PO Last administered on 06/03/17 10:01 ; Admin Dose 2,001 MG; Start 05/31/17 at 21:00 Clonidine (Catapres) 0.1 mg TID PO Last administered on 06/03/17 10:03; Admin Dose 0.1 MG; Start 05/31/17 at 21:00 Famotidine (Pepcid) 20 mg DAILY PO Last administered on 06/03/17 10:02; Admin Dose 20 MG; Start 06/01/17 at 09:00 Folic Acid (Folic Acid) 1 mg DAILY PO Last administered on 06/03/17 10:02; Admin Dose 1 MG; Start 06/01/17 at 09:00 Hydralazine HCl (Apresoline) 75 mg TID PO Last administered on 06/03/17 10:03 ; Admin Dose 75 MG; Start 05/31/17 at 21:00 Insulin Detemir (Levemir) 18 unit HS SC Last administered on 06/02/17 20:31; Admin Dose 18 UNIT; Start 05/31/17 at 21:00 Metoprolol Succinate (Toprol Xl) 25 mg DAILY PO Last administered on 10:03; Admin Dose 25 MG; Start 06/01/17 at 09:00 Ondansetron HCl (Zofran Inj) 4 mg Q6H PRN IV NAUSEA AND/OR VOMITING; Start at 23:30 Acetaminophen (Tylenol Tab) 650 mg Q6H PRN PO PAIN LEVEL 1-3 OR FEVER Last administered on 06/01/17 04:20; Admin Dose 650 MG; Start 05/31/17 at 23:30 Acetaminophen/ Hydrocodone Bitart ([place] (5/325)) 1 tab Q6H PRN PO MODERATE PAIN LEVEL 4-6; Start 05/31/17 at 23:30 Docusate Sodium (Colace) 100 mg Q12H PRN PO CONSTIPATION; Start 05/31/17 at 23 :30 Bisacodyl (Dulcolax) 5 mg DAILY PRN PO CONSTIPATION; Start 05/31/17 at 23:30 Zolpidem Tartrate (Ambien) 5 mg QHS PRN PO SLEEP; Start 05/31/17 at 23:30 Pantoprazole (Protonix Tab) 40 mg DAILY@06 PO Last administered on 06/03/17 10:02; Admin Dose 40 MG; Start 06/01/17 at 06:00 Enoxaparin Sodium (Lovenox) 30 mg DAILY SC Last administered on 06/03/17 10: 18; Admin Dose 30 MG; Start 06/01/17 at 09:00 Amikacin Sulfate (Amikacin Iv Per Pharmacy) AMIKACIN PER PHARMACY NOTE XX ; Start 06/01/17 at 17:00 Diagnostic Test (Pha) (Accu-Chek) 1 ea 02 XX ; Start 06/03/17 at 02:00 Miscellaneous Information 1 ea NOTE XX ; Start 06/02/17 at 20:30 Glucose (Glutose) 15 gm Q15M PRN PO DECREASED GLUCOSE; Start 06/02/17 at 20:30 Glucose (Glutose) 22.5 gm Q15M PRN PO DECREASED GLUCOSE; Start 06/02/17 at 20: 30 Dextrose (D50w Syringe) 25 ml Q15M PRN IV DECREASED GLUCOSE; Start 06/02/17 at 20:30 Dextrose (D50w Syringe) 50 ml Q15M PRN IV DECREASED GLUCOSE; Start 06/02/17 at 20:30 Glucagon (Glucagen) 1 mg Q15M PRN IM DECREASED GLUCOSE; Start 06/02/17 at 20: 30 Glucose (Glutose) 15 gm Q15M PRN BUCCAL DECREASED GLUCOSE; Start 06/02/17 at 20:30 JANE MARIE Jun 03, 2017 12:30
[2017-06-03] MEDS ORDERED: AMIKACIN IVPB SCH ×2 (16:00→17:00)
[2017-06-03] MEDS ORDERED: DEXTROSE 5% IVPB SCH ×2 (16:00→17:00)
--- NOTE | 2017-06-03 17:21 | CONS ---
Date/Time of Note Date/Time of Note DATE: 06/03/17 TIME: 17:08 Assessment/Plan Assessment/Plan Chief Complaint/Hosp Course ID PROGRESS NOTE CURRENT ABX: TOTAL ABX DAY # 3 => Amikacin + Vanco x 1 (05/31)=> DC TODAY START LEVAQUIN 250mg PO Q48H x 6 days 24H INTERVAL SUMMARY * A/A/O, responsive, sitting up in bed, smiling, polite, good historian, VSS, NAD, without dyspnea on room air, no fevers * INDWELLING: The patient has a right upper extremity AV fistula. * MICROBIOLOGY: Blood cultures since admission negative. Urine culture growing coag-negative Staph species. * DIAGNOSTICS: Chest x-ray on admission revealed clear lungs, permanent pacemaker present. * 06/03/1772806/03/1729 Physical Exam Physical Exam Constitutional: VSS, NAD, A/A/O x4, afebrile HEENT: Unremarkable Neck: Supple, full ROM Respiratory: Equal chest rise bilaterally, without dyspnea on observation, room air Cardiovascular: nl pulses, regular rate and rhythm Gastrointestinal: Soft, NT Extremities: Warm, no c/c/e ID ASSESSMENT 66 yo overweight F admit with: 1. Systemic inflammatory response syndrome with fevers and leukocytosis => resolving bronchitis * Likely due to indwelling catheter related UTI => Present on admission, now DC' d * URINE CULTURE Final Organism 1 COAGULASE NEGATIVE STAPH COLONY COUNT >100,000 CFU/ml COAG NEG M.I.C. RX --------- --- CEFAZOLIN R CIPROFLOXACIN 2 I DOXYCYCLINE S LEVOFLOXACIN 0.25 S OXACILLIN >=4 R PENICILLIN-G >=0.5 R RIFAMPIN <=0.5 S VANCOMYCIN 1 S TRIMETHOPRIM/SULFAMETHOXAZOLE 160 R 2. End-stage renal disease. 3. Right upper extremity arteriovenous fistula. 4. Diabetes. 5. Coronary artery disease with a history of permanent pacemaker placement. 6. ?Supplemental home O2 ? -> s/p recent pneumonia and bronchitis=> CXR shows PNA resolved, lungs clear, no cough. (- )MRSA Nares INVASIVES: PIV ABX ALLERGIES: KNDA CURRENT ABX: TOTAL ABX DAY # 3 => Amikacin + Vanco x 1 (05/31)=> DC TODAY START LEVAQUIN 250mg PO Q48H x 6 days ID RECOMMENDATIONS 1. DC Vanco IV + Amikacin 2.Start Levaquin 250mg po Q48H x total 6 days and DC home when cleared by PMD 3. Patient tells me she was on supplemental O2 at home prior to admission . Problems: Consultation Date/Type/Reason Admit Date/Time May 31, 2017 at 19:02 Initial Consult Date Exam/Review of Systems Vital Signs Vitals Vital Signs Date Time Temp Pulse Resp B/P Pulse Ox O2 Delivery O2 Flow Rate FiO2 06/03/17 16:18 71 06/03/17 15:37 98.6 18 146/69 94 06/03/17 08:01 Nasal Cannula 2.0 Intake and Output 06/02/17 06/02/17 06/03/17 15:00 23:00 07:00 Intake Total 360 ml 120 ml Balance 360 ml 120 ml Results Result Diagram: 06/03/17 0729 06/03/17 0729 Results 24 hrs Laboratory Tests Test 06/02/17 20:28 06/03/17 07:29 06/03/17 09:00 06/03/17 12:11 Bedside Glucose 134 74 106 White Blood Count 5.5 # Red Blood Count 3.26 L Hemoglobin 10.2 L Hematocrit 32.7 L Mean Corpuscular Volume 100.3 Mean Corpuscular Hemoglobin 31.3 Mean Corpuscular Hemoglobin Concent 31.2 L Red Cell Distribution Width 13.3 Platelet Count 171 Mean Platelet Volume 10.2 Neutrophils % 63.7 Lymphocytes % 14.2 L Monocytes % 14.2 H Eosinophils % 7.1 H Basophils % 0.4 Nucleated Red Blood Cells % 0.0 Neutrophils # 3.5 Lymphocytes # 0.8 Monocytes # 0.8 Eosinophils # 0.4 Basophils # 0.0 Nucleated Red Blood Cells # 0.0 Sodium Level 138 Potassium Level 5.1 Chloride Level 95 L Carbon Dioxide Level 28 Anion Gap 20 H Blood Urea Nitrogen 83 H Creatinine 11.41 H Glucose Level 94 Calcium Level 8.6 Medications Medications Current Medications Aspirin (Halfprin) 81 mg DAILY PO Last administered on 06/03/17t 10:02; Admin Dose 81 MG; Start 06/01/17 at 09:00 Calcium Acetate (Phoslo) 2,001 mg TID PO Last administered on 06/03/17 13:52 ; Admin Dose 2,001 MG; Start 05/31/17 at 21:00 Clonidine (Catapres) 0.1 mg TID PO Last administered on 06/03/17 10:03; Admin Dose 0.1 MG; Start 05/31/17 at 21:00 Famotidine (Pepcid) 20 mg DAILY PO Last administered on 06/03/17 10:02; Admin Dose 20 MG; Start 06/01/17 at 09:00 Folic Acid (Folic Acid) 1 mg DAILY PO Last administered on 06/03/17 10:02; Admin Dose 1 MG; Start 06/01/17 at 09:00 Hydralazine HCl (Apresoline) 75 mg TID PO Last administered on 06/03/17 10:03 ; Admin Dose 75 MG; Start 05/31/17 at 21:00 Insulin Detemir (Levemir) 18 unit HS SC Last administered on 06/02/17 20:31; Admin Dose 18 UNIT; Start 05/31/17 at 21:00 Metoprolol Succinate (Toprol Xl) 25 mg DAILY PO Last administered on 10:03; Admin Dose 25 MG; Start 06/01/17 at 09:00 Ondansetron HCl (Zofran Inj) 4 mg Q6H PRN IV NAUSEA AND/OR VOMITING; Start at 23:30 Acetaminophen (Tylenol Tab) 650 mg Q6H PRN PO PAIN LEVEL 1-3 OR FEVER Last administered on 06/01/17 04:20; Admin Dose 650 MG; Start 05/31/17 at 23:30 Acetaminophen/ Hydrocodone Bitart ([place] (5/325)) 1 tab Q6H PRN PO MODERATE PAIN LEVEL 4-6; Start 05/31/17 at 23:30 Docusate Sodium (Colace) 100 mg Q12H PRN PO CONSTIPATION; Start 05/31/17 at 23 :30 Bisacodyl (Dulcolax) 5 mg DAILY PRN PO CONSTIPATION; Start 05/31/17 at 23:30 Zolpidem Tartrate (Ambien) 5 mg QHS PRN PO SLEEP; Start 05/31/17 at 23:30 Pantoprazole (Protonix Tab) 40 mg DAILY@06 PO Last administered on 06/03/17 10:02; Admin Dose 40 MG; Start 06/01/17 at 06:00 Enoxaparin Sodium (Lovenox) 30 mg DAILY SC Last administered on 06/03/17 10: 18; Admin Dose 30 MG; Start 06/01/17 at 09:00 Amikacin Sulfate (Amikacin Iv Per Pharmacy) AMIKACIN PER PHARMACY NOTE XX ; Start 06/01/17 at 17:00 Diagnostic Test (Pha) (Accu-Chek) 1 ea 02 XX ; Start 06/03/17 at 02:00 Miscellaneous Information 1 ea NOTE XX ; Start 06/02/17 at 20:30 Glucose (Glutose) 15 gm Q15M PRN PO DECREASED GLUCOSE; Start 06/02/17 at 20:30 Glucose (Glutose) 22.5 gm Q15M PRN PO DECREASED GLUCOSE; Start 06/02/17 at 20: 30 Dextrose (D50w Syringe) 25 ml Q15M PRN IV DECREASED GLUCOSE; Start 06/02/17 at 20:30 Dextrose (D50w Syringe) 50 ml Q15M PRN IV DECREASED GLUCOSE; Start 06/02/17 at 20:30 Glucagon (Glucagen) 1 mg Q15M PRN IM DECREASED GLUCOSE; Start 06/02/17 at 20: 30 Glucose 15 gm 15 gm Q15M PRN BUCCAL DECREASED GLUCOSE; Start 06/02/17 at 20:30 Amikacin Sulfate/ Dextrose (Amikacin/D5W) 101.3 ml @ 100 mls/hr 16 IVPB Last administered on 06/03/17 16:53; Admin Dose 100 MLS/HR; Start 06/03/17 at 16: 00; Stop 06/03/17 at 22:00 PRIYANKA GAMING NP Jun 03, 2017 17:21
[2017-06-03] MEDS ORDERED: LEVOFLOXACIN 250 MG TAB GTB SCH (18:00)
[2017-06-03] MEDS: INSULIN DETEMIR [LEVEMIR] 3ML CART SC SCH (20:45)
[2017-06-04] VITALS (7 sets, daily range): BP systolic 113–137; BP diastolic 56–68; PULSE 70–76; RESP 18–20
[2017-06-04] MEDS: ALBUTEROL 0.083% (NEB) 2.5 MG/3 ML AMP HHN SCH ×2 (01:42→08:23)
[2017-06-04] MEDS: ACCU-CHEK XX SCH (02:00)
[2017-06-04] MEDS: INSULIN ASPART [NOVOLOG] 3 ML PEN SC SCH ×2 (07:59→12:00)
[2017-06-04] MEDS: FAMOTIDINE 20 MG TAB PO SCH (08:03)
[2017-06-04] MEDS: ASPIRIN (EC) 81 MG TAB PO SCH (08:03)
[2017-06-04] MEDS: METOPROLOL (XL) 25 MG TAB PO SCH (08:04)
[2017-06-04] MEDS: FOLIC ACID 1 MG TAB PO SCH (08:04)
[2017-06-04] MEDS: CALCIUM ACETATE 667 MG CAP PO SCH ×2 (08:04→12:24)
[2017-06-04 08:07] LABS: BASOPHILS % 0.6 % (0.0-2.0); EOSINOPHILS # 0.4 10^3/ul (0.0-0.5); EOSINOPHILS % 7.2 % (0.0-7.0); HEMOGLOBIN 11.3 g/dl (12.0-16.0); LYMPHOCYTES # 0.6 10^3/ul (0.8-2.9); LYMPHOCYTES % 11.2 % (15.0-51.0); MEAN CORPUSCULAR HEMOGLOBIN 32.4 pg (29.0-33.0); MEAN CORPUSCULAR HGB CONC 32.3 g/dl (32.0-37.0); MEAN CORPUSCULAR VOLUME 100.3 fl (82.0-101.0); MEAN PLATELET VOLUME 10.3 fl (7.4-10.4); MONOCYTE # 0.8 10^3/ul (0.3-0.9); MONOCYTES % 14.2 % (0.0-11.0); NEUTROPHIL # 3.6 10^3/ul (1.6-7.5); NEUTROPHILS % 66.4 % (39.0-77.0); PLATELET COUNT 194 10^3/UL (140-415); RED BLOOD COUNT 3.49 10^6/ul (4.20-5.40); RED CELL DISTRIBUTION WIDTH 13.1 % (11.5-14.5); WHITE BLOOD COUNT 5.4 10^3/ul (4.8-10.8)
[2017-06-04] MEDS: ENOXAPARIN 30 MG/0.3 ML SYG SC SCH (08:08)
[2017-06-04 08:25] LABS: CALCIUM 9.2 mg/dl (8.4-10.2); CREATININE 7.87 mg/dl (0.44-1.00); POTASSIUM 4.9 mmol/L (3.5-5.1)
--- NOTE | 2017-06-04 10:48 | CONS ---
Date/Time of Note Date/Time of Note DATE: 06/04/17 TIME: 10:38 Assessment/Plan Assessment/Plan Chief Complaint/Hosp Course ID PROGRESS NOTE CURRENT ABX: TOTAL ABX DAY # 4 => => STARTED ON LEVAQUIN 250mg PO Q48H x 6 days S/P Amikacin + Vanco x 1 (05/31) 24H INTERVAL SUMMARY * Feeling well, no complaints, she tells me she has O2 at home ? * INDWELLING: The patient has a right upper extremity AV fistula. * MICROBIOLOGY: Blood cultures since admission negative. Urine culture growing coag-negative Staph species. * DIAGNOSTICS: Chest x-ray on admission revealed clear lungs, permanent pacemaker present. Physical Exam Physical Exam Constitutional: VSS, NAD, A/A/O x4, afebrile HEENT: Unremarkable Neck: Supple, full ROM Respiratory: Equal chest rise bilaterally, without dyspnea on observation, room air Cardiovascular: nl pulses, regular rate and rhythm Gastrointestinal: Soft, NT Extremities: Warm, no c/c/e ID ASSESSMENT 66 yo overweight F admit with: 1. Systemic inflammatory response syndrome with fevers and leukocytosis => resolving bronchitis * Likely due to indwelling catheter related UTI => Present on admission, now DC' d * URINE CULTURE Final Organism 1 COAGULASE NEGATIVE STAPH COLONY COUNT >100,000 CFU/ml COAG NEG M.I.C. RX --------- --- CEFAZOLIN R CIPROFLOXACIN 2 I DOXYCYCLINE S LEVOFLOXACIN 0.25 S OXACILLIN >=4 R PENICILLIN-G >=0.5 R RIFAMPIN <=0.5 S VANCOMYCIN 1 S TRIMETHOPRIM/SULFAMETHOXAZOLE 160 R 2. End-stage renal disease. 3. Right upper extremity arteriovenous fistula. 4. Diabetes. 5. Coronary artery disease with a history of permanent pacemaker placement. 6. ?Supplemental home O2 ? -> s/p recent pneumonia and bronchitis=> CXR shows PNA resolved, lungs clear, no cough. (- )MRSA Nares INVASIVES: PIV ABX ALLERGIES: KNDA CURRENT ABX: TOTAL ABX DAY # 4 => => STARTED ON LEVAQUIN 250mg PO Q48H S/P Amikacin + Vanco x 1 (05/31) sp/ Zosyn x1 s/p Cefepime ID RECOMMENDATIONS 1. She was admitted last month with Gamma Strep UTI, now admitted with CoNS UTI - * -Due to the high colony count > 100,000 doubt this this is a contaminated sample * -Due to prior UTI, suspect she is susceptible to UTI due to low urine production w/urostasis 2. Start Levaquin 250mg po Q48H x total 10 days and DC home when cleared by PMD * Levaquin will cover all the following: UTI; BronchoPNA; biofilm -- continue additional 10 days due concern of dubious source 3. Patient tells me she was on supplemental O2 at home prior to admission . Problems: Consultation Date/Type/Reason Admit Date/Time May 31, 2017 at 19:02 Exam/Review of Systems Vital Signs Vitals Vital Signs Date Time Temp Pulse Resp B/P Pulse Ox O2 Delivery O2 Flow Rate FiO2 06/04/17 08:23 98.6 76 18 116/57 100 06/04/17 08:23 Nasal Cannula 2.0 Intake and Output 06/03/17 06/03/17 06/04/17 15:00 23:00 07:00 Intake Total 600 ml 360 ml 200 ml Output Total 3600 ml 1200 ml Balance -3000 ml -840 ml 200 ml Results Result Diagram: 06/04/17 0750 06/04/17 0750 Results 24 hrs Laboratory Tests Test 06/03/17 12:11 06/03/17 17:09 06/03/17 20:43 06/04/17 07:50 Bedside Glucose 106 108 122 White Blood Count 5.4 Red Blood Count 3.49 L Hemoglobin 11.3 L Hematocrit 35.0 L Mean Corpuscular Volume 100.3 Mean Corpuscular Hemoglobin 32.4 Mean Corpuscular Hemoglobin Concent 32.3 Red Cell Distribution Width 13.1 Platelet Count 194 Mean Platelet Volume 10.3 Neutrophils % 66.4 Lymphocytes % 11.2 L Monocytes % 14.2 H Eosinophils % 7.2 H Basophils % 0.6 Nucleated Red Blood Cells % 0.0 Neutrophils # 3.6 Lymphocytes # 0.6 L Monocytes # 0.8 Eosinophils # 0.4 Basophils # 0.0 Nucleated Red Blood Cells # 0.0 Sodium Level 138 Potassium Level 4.9 Chloride Level 92 L Carbon Dioxide Level 33 H Anion Gap 18 H Blood Urea Nitrogen 53 #H Creatinine 7.87 #H Glucose Level 92 Calcium Level 9.2 Test 06/04/17 07:58 Bedside Glucose 97 Medications Medications Current Medications Aspirin (Halfprin) 81 mg DAILY PO Last administered on 06/04/17 08:03; Admin Dose 81 MG; Start 06/01/17 at 09:00 Calcium Acetate (Phoslo) 2,001 mg TID PO Last administered on 06/04/17 08:04 ; Admin Dose 2,001 MG; Start 05/31/17 at 21:00 Clonidine (Catapres) 0.1 mg TID PO Last administered on 06/04/17 08:03; Admin Dose 0.1 MG; Start 05/31/17 at 21:00 Famotidine (Pepcid) 20 mg DAILY PO Last administered on 06/04/17 08:03; Admin Dose 20 MG; Start 06/01/17 at 09:00 Folic Acid (Folic Acid) 1 mg DAILY PO Last administered on 06/04/17 08:04; Admin Dose 1 MG; Start 06/01/17 at 09:00 Hydralazine HCl (Apresoline) 75 mg TID PO Last administered on 06/04/17 08:03 ; Admin Dose 75 MG; Start 05/31/17 at 21:00 Insulin Detemir (Levemir) 18 unit HS SC Last administered on 06/03/17 20:45; Admin Dose 18 UNIT; Start 05/31/17 at 21:00 Metoprolol Succinate (Toprol Xl) 25 mg DAILY PO Last administered on 08:04; Admin Dose 25 MG; Start 06/01/17 at 09:00 Ondansetron HCl (Zofran Inj) 4 mg Q6H PRN IV NAUSEA AND/OR VOMITING; Start at 23:30 Acetaminophen (Tylenol Tab) 650 mg Q6H PRN PO PAIN LEVEL 1-3 OR FEVER Last administered on 06/01/17 04:20; Admin Dose 650 MG; Start 05/31/17 at 23:30 Acetaminophen/ Hydrocodone Bitart ([place] (5/325)) 1 tab Q6H PRN PO MODERATE PAIN LEVEL 4-6; Start 05/31/17 at 23:30 Docusate Sodium (Colace) 100 mg Q12H PRN PO CONSTIPATION; Start 05/31/17 at 23 :30 Bisacodyl (Dulcolax) 5 mg DAILY PRN PO CONSTIPATION; Start 05/31/17 at 23:30 Zolpidem Tartrate (Ambien) 5 mg QHS PRN PO SLEEP; Start 05/31/17 at 23:30 Pantoprazole (Protonix Tab) 40 mg DAILY@06 PO Last administered on 06/03/17 10:02; Admin Dose 40 MG; Start 06/01/17 at 06:00 Enoxaparin Sodium (Lovenox) 30 mg DAILY SC Last administered on 06/04/17 08: 08; Admin Dose 30 MG; Start 06/01/17 at 09:00 Diagnostic Test (Pha) (Accu-Chek) 1 ea 02 XX ; Start 06/03/17 at 02:00 Miscellaneous Information 1 ea NOTE XX ; Start 06/02/17 at 20:30 Glucose (Glutose) 15 gm Q15M PRN PO DECREASED GLUCOSE; Start 06/02/17 at 20:30 Glucose (Glutose) 22.5 gm Q15M PRN PO DECREASED GLUCOSE; Start 06/02/17 at 20: 30 Dextrose (D50w Syringe) 25 ml Q15M PRN IV DECREASED GLUCOSE; Start 06/02/17 at 20:30 Dextrose (D50w Syringe) 50 ml Q15M PRN IV DECREASED GLUCOSE; Start 06/02/17 at 20:30 Glucagon (Glucagen) 1 mg Q15M PRN IM DECREASED GLUCOSE; Start 06/02/17 at 20: 30 Glucose (Glutose) 15 gm Q15M PRN BUCCAL DECREASED GLUCOSE; Start 06/02/17 at 20:30 Levofloxacin (Levaquin) 250 mg Q48H GTB Last administered on 06/03/17 18:00; Admin Dose 250 MG; Start 06/03/17 at 18:00; Stop 06/09/17 at 17:59 PRIYANKA GAMING NP Jun 04, 2017 10:48
--- NOTE | 2017-06-04 10:57 | PDOCDIS ---
Discharge Instructions DIAGNOSIS Discharge Diagnosis Staph UTI CONDITION Patient Condition: Fair HOME CARE INSTRUCTIONS: Special Diet: 1800 calorie/2gm Na ACTIVITY: Activity Restrictions: Slowly Increase Activity FOLLOW UP/APPOINTMENTS Follow-up Plan F/U PCP in 2 weeks F/U HD center TTS ELIANA NEELY MD Jun 04, 2017 10:57
[2017-06-04] MEDS ORDERED: LEVO250T35 GTB (10:58)
== END 2017-06-04 13:00 | disposition home or self-care (01) | DRG 871 ==
LOC: E/R 12:46 → MS4 19:02
PROVIDERS: ADMIT Internal Medicine Nephrology; ATTEND Internal Medicine Nephrology
DX: A41.9 Sepsis, unspecified organism (principal); N18.6 End stage renal disease; N17.9 Acute kidney failure, unspecified; N39.0 Urinary tract infection, site not specified; I12.0 Hypertensive chronic kidney disease with stage 5 chronic kidney disease or end stage renal disease; E87.5 Hyperkalemia; E11.9 Type 2 diabetes mellitus without complications; Z99.2 Dependence on renal dialysis; Z95.0 Presence of cardiac pacemaker; J40 Bronchitis, not specified as acute or chronic
CPT/HCPCS: 71010; 80048; 80053; 81001; 82962; 83605; 83735; 84100; 84484; 85025; 85610; 85730; 87040; 87081; 87086; 90935; 93005; 94640; 94664; 96372; 96374; 96375; J1940; J0278; J0692; J0696; J1650; J1815; J2543; J3370; J7030

== ENCOUNTER 2017-07-31 09:37 | Emergency (ER) | payer MEDICARE, OTHER ==
[~2017-07-31] VITALS: Ht 165.1 cm; Wt 87.3 kg
[~2017-07-31 09:37] MED LIST changes: +LEVO250T35 GTB; +METO-335 PO; -METO-429 PO
[2017-07-31 09:40] VITALS: Ht 165.1 cm; Wt 87.3 kg
[2017-07-31] MEDS ORDERED: ACET325T33 PO (10:53)
[2017-07-31] MEDS ORDERED: LORA-186 PO (10:54)
--- NOTE | 2017-07-31 10:59 | ERD ---
ER Documentation Chief Complaint Chief Complaint dry cough , sore throat x 2 days HPI Is a 67-year-old female patient on dialysis Monday presenting to the emergency department complaining of dry cough and sore throat since yesterday. Patient denies any fever, chest pain, shortness of breath. She states that she took Tylenol ROS All systems reviewed and are negative except as per history of present illness. Medications Home Meds Active Scripts Loratadine* (Claritin*) 10 Mg Tablet, 10 MG PO DAILY, #20 TAB Prov:ERICK MONTANA PA-C 07/31/17 Acetaminophen* (Tylenol*) 325 Mg Tablet, 2 TAB PO Q4 Y for PAIN AND OR ELEVATED TEMP, #30 TAB Prov:ERICK MONTANA PA-C 07/31/17 Levofloxacin* (Levaquin*) 250 Mg Tablet, 250 MG GTB Q48H for 10 Days, TAB Prov:ELIANA NEELY MD 06/04/17 Docusate Sodium (Dok) 100 Mg Capsule, 100 MG PO Q12H Y for CONSTIPATION for 28 Days, CAP Prov:JEFF RAMOS MD 04/13/17 Famotidine* (Famotidine*) 20 Mg Tablet, 20 MG PO DAILY for 28 Days, TAB Prov:JEFF RAMOS MD 04/13/17 [Ipratropium 0.02% (Neb)] 0.5 MG/2.5 ML NEBU No Conflict Check, 0.5 MG HHN Q6H RESP THERAPY for 28 Days Prov:JEFF RAMOS MD 04/13/17 Albuterol Sulfate* (Albuterol Sulfate* Neb) 0.083%-3 Ml Neb, 1.25 MG HHN Q6H RESP THERAPY for 28 Days Prov:JEFF RAMOS MD 04/13/17 Aspirin* (Aspirin* EC) 81 Mg Tablet.dr, 81 MG PO DAILY for 28 Days, TAB Prov:ELIANA NEELY MD 04/06/17 Folic Acid* (Folic Acid*) 1 Mg Tablet, 1 MG PO DAILY for 30 Days, TAB Prov:ELIANA NEELY MD 04/06/17 Calcium Acetate* (Phoslo*) 667 Mg Tablet, 2001 MG PO TID for 30 Days, TAB Prov:ELIANA NEELY MD 04/06/17 Clonidine Hcl* (Clonidine Hcl*) 0.1 Mg Tab, 0.1 MG PO TID for 30 Days, TAB Prov:ELIANA NEELY MD 04/06/17 Hydralazine Hcl* (Hydralazine Hcl*) 50 Mg Tab, 75 MG PO TID for 30 Days, TAB Prov:ELIANA NEELY MD 04/06/17 Pantoprazole* (Protonix*) 40 Mg Tablet.dr, 40 MG PO BID for 28 Days, TAB Prov:JEFF RAMOS MD 08/07/16 Reported Medications Metoprolol Succinate* (Toprol XL*) 25 Mg Tab.sr.24h, 25 MG PO DAILY, #30 TAB 05/31/17 Insulin Detemir* (Levemir*) 100 U/Ml Vial, 18 UNIT SC HS, VIAL 10/24/14 Insulin Lispro (Humalog) 100 U/Ml Insuln.pen, 5 UNIT SC WITH MEALS, EA 09/23/14 Allergies Allergies: Coded Allergies: No Known Allergy (Unverified , 05/31/17) PMhx/Soc History of Surgery: Yes (COLON SURGERY,AV SHUNT,SURGICAL REMOVAL OVARIAN TUMOR, PACEMAKER.) Anesthesia Reaction: No Hx Neurological Disorder: No Hx Respiratory Disorders: No Hx Cardiac Disorders: Yes (HTN) Hx Psychiatric Problems: No Hx Miscellaneous Medical Probl: No Hx Alcohol Use: No Hx Substance Use: No Hx Tobacco Use: No Physical Exam Vitals Vital Signs Date Time Temp Pulse Resp B/P Pulse Ox O2 Delivery O2 Flow Rate FiO2 07/31/17 09:40 98.1 81 18 136/63 100 Physical Exam Const: Well-developed well-nourished no acute distress Head: Atraumatic Eyes: Normal Conjunctiva ENT: Normal External Ears, Nose and Mouth. Oropharynx is not erythematous without any tonsillar exudates or edema Neck: Full range of motion..~ No meningismus. Resp: Clear to auscultation bilaterally Cardio: Regular rate and rhythm, no murmurs Abd: Soft, non tender, non distended. Normal bowel sounds Skin: No petechiae or rashes Back: No midline or flank tenderness Ext: No cyanosis, or edema Neur: Awake and alert Psych: Normal Mood and Affect Procedures/MDM This is a 59-year-old female on dialysis Monday presenting to the emergency department complaining of a sore throat and dry cough since yesterday which is likely due to a viral upper respiratory infection. No evidence of strep pharyngitis, peritonsillar abscess, retropharyngeal abscess, pneumonia. Patient stable to discharged home with prescription for Tylenol and to follow-up with her primary care physician. Return precautions given. Departure Diagnosis: Primary Impression: Pharyngitis Condition: Stable Patient Instructions: Uri, Viral, No Abx (Adult) Additional Instructions: FOLLOW UP WITH YOUR PRIMARY CARE PHYSICIAN TOMORROW.Return to this facility if you are not improving as expected. Return to this facility if you are not improving as expected. ERICK MONTANA PA-C Jul 31, 2017 10:59
[2017-07-31 11:11] VITALS: TEMP 98.1
== END 2017-07-31 11:12 | disposition home or self-care (01) ==
LOC: FTE 09:37
DX: J02.9 Acute pharyngitis, unspecified (principal); I10 Essential (primary) hypertension; E11.9 Type 2 diabetes mellitus without complications; Z79.82 Long term (current) use of aspirin
CPT/HCPCS: 99283

== ENCOUNTER 2017-09-28 18:05 | Inpatient (IN) | END 2017-10-05 17:30 | disposition home or self-care (01) | DRG 640 ==

== ENCOUNTER 2017-11-14 11:57 | Emergency (ER) | END 2017-11-14 12:26 | disposition home or self-care (01) ==

== ENCOUNTER 2017-11-19 02:09 | Emergency (ER) | END 2017-11-19 08:31 | disposition home or self-care (01) ==

== ENCOUNTER 2017-11-20 11:43 | Inpatient (IN) | END 2017-11-22 16:00 | disposition home or self-care (01) | DRG 638 ==

== ENCOUNTER 2018-01-20 06:26 | Observation (INO) | END 2018-01-22 14:00 | disposition home or self-care (01) ==

== ENCOUNTER 2018-01-24 11:50 | Inpatient (IN) | END 2018-02-09 20:52 | disposition home or self-care (01) | DRG 252 ==

== ENCOUNTER 2018-07-16 13:36 | Observation (INO) | END 2018-07-18 17:56 | disposition home or self-care (01) ==

== ENCOUNTER 2018-10-04 09:27 | Emergency (ER) | payer MEDICARE, OTHER ==
[~2018-10-04] VITALS: Ht 180.3 cm; Wt 88.7 kg
[~2018-10-04 09:27] MED LIST changes: -ALBU2.5V3 HHN; -ASPI-664 PO; +ASPI-817 PO; +CALC667C PO; -CALC667T2 PO; +DOCU-144 PO; -DOCU-216 PO; -FAMO20TA18 PO; +HYDR-3671 PO; -HYDR-3672 PO; -INSU100I14 SC; -Ipratropium 0.02% (Neb) HHN; -LEVEM SC; -LEVO250T35 GTB; +LINA5TAB PO; +METO-319 PO; -METO-335 PO; -PANT40TA3 PO
[2018-10-04 09:31] VITALS: BP 122/59; PULSE 95; RESP 20; Ht 180.3 cm; Wt 88.7 kg
--- NOTE | 2018-10-04 12:16 | ERD ---
ER Documentation Chief Complaint Chief Complaint Sent from for evaluation clotted dialysis access HPI This is a 68-year-old female with a past medical history of end-stage renal disease who is presenting for dialysis catheter placement. The patient has a left tunneled dialysis catheter, and she reports that it is supposed to be replaced. The patient does report that she was able to complete her dialysis session this morning. The patient has no complaints at this time. The patient denies feeling sick recently. The patient denies fever or chills. The patient has had no headache or vision changes. The patient does not endorse neck or back pain. The patient denies lightheadedness or dizziness. The patient has had no chest pain or trouble breathing. The patient denies nausea or vomiting. The patient denies abdominal pain. The patient denies changes to bowel movements or urination. The patient has had no focal deficits. The patient has had no weakness or numbness or tingling to the face or extremities. ROS All systems reviewed and are negative except as per history of present illness. Medications Home Meds Reported Medications Metoprolol Succinate* (Toprol XL*) 50 Mg Tab.er.24h, 50 MG PO DAILY, #30 TAB 01/22/18 Clonidine Hcl* (Clonidine Hcl*) 0.1 Mg Tab, 0.1 MG PO Q8 PRN for PRN, TAB 01/22/18 Hydralazine Hcl* (Hydralazine Hcl*) 25 Mg Tab, 25 MG PO Q8 PRN for PRN, #90 TAB 01/22/18 Linagliptin (TRADJENTA) 5 Mg Tablet, 5 MG PO DAILY, TAB 01/22/18 Calcium Acetate* (Calcium Acetate*) 667 Mg Capsule, 2001 MG PO WITH MEALS, #90 CAP 01/22/18 Folic Acid* (Folic Acid*) 1 Mg Tablet, 1 MG PO DAILY, TAB 01/22/18 Docusate Sodium* (Colace*) 100 Mg Capsule, 100 MG PO BID, #60 CAP 01/22/18 Aspirin* (Aspirin* EC) 81 Mg Tablet.dr, 81 MG PO DAILY, TAB 01/22/18 Allergies Allergies: Coded Allergies: No Known Allergy (Unverified , 01/22/18) PMhx/Soc History of Surgery: Yes (pacemaker , víctor cath lt chest ) Anesthesia Reaction: No Hx Neurological Disorder: No Hx Respiratory Disorders: Yes Hx Cardiac Disorders: Yes (HTN) Hx Psychiatric Problems: No Hx Miscellaneous Medical Probl: Yes (dm , esrd ) Hx Alcohol Use: No Hx Substance Use: No Hx Tobacco Use: No Smoking Status: Never smoker FmHx Family History: No diabetes Physical Exam Vitals Vital Signs Date Temp Pulse Resp B/P (MAP) Pulse Ox O2 O2 Flow FiO2 Time Delivery Rate 10/04/18 97.9 95 20 122/59 94 09:31 (80) Physical Exam Const: No apparent distress, well-developed, well-nourished Head: Normocephalic, Atraumatic Eyes: Normal Conjunctiva. Extraocular movements intact. Pupils equal, round and reactive to light ENT: Normal External Ears, Nose and Mouth. Neck: Full range of motion. No meningismus. Resp: Clear to auscultation bilaterally, No wheezes, rales or rhonchi Cardio: Regular rate and rhythm. No murmurs, rubs or gallops Chest: Left chest tunneled dialysis catheter evident. Abd: Soft, non tender, non distended. Normal bowel sounds Skin: No petechiae or rashes Back: No midline tenderness. No CVA tenderness Ext: No cyanosis, or edema Neur: Awake and alert, oriented 4. Cranial nerves intact. No facial droop. Normal strength, sensation and coordination. Psych: Normal Mood and Affect Result Diagram: 10/04/18 1110 10/04/18 1110 Results 24 hrs Laboratory Tests Test 10/04/18 11:10 White Blood Count 5.4 10^3/ul Red Blood Count 3.90 10^6/ul Hemoglobin 12.1 g/dl Hematocrit 37.8 % Mean Corpuscular Volume 96.9 fl Mean Corpuscular Hemoglobin 31.0 pg Mean Corpuscular Hemoglobin Concent 32.0 g/dl Red Cell Distribution Width 12.7 % Platelet Count 176 10^3/UL Mean Platelet Volume 10.1 fl Immature Granulocytes % 0.400 % Neutrophils % 61.6 % Lymphocytes % 17.1 % Monocytes % 12.1 % Eosinophils % 8.4 % Basophils % 0.4 % Nucleated Red Blood Cells % 0.0 /100WBC Immature Granulocytes # 0.020 10^3/ul Neutrophils # 3.3 10^3/ul Lymphocytes # 0.9 10^3/ul Monocytes # 0.7 10^3/ul Eosinophils # 0.5 10^3/ul Basophils # 0.0 10^3/ul Nucleated Red Blood Cells # 0.0 10^3/ul Prothrombin Time 12.1 Sec Prothrombin Time Ratio 0.9 INR International Normalized Ratio 0.89 Sodium Level 139 mmol/L Potassium Level 4.3 mmol/L Chloride Level 99 mmol/L Carbon Dioxide Level 29 mmol/L Anion Gap 11 Blood Urea Nitrogen 32 mg/dl Creatinine 5.43 mg/dl Est Glomerular Filtrat Rate mL/min 8 mL/min Glucose Level 99 mg/dl Calcium Level 10.1 mg/dl Procedures/MDM MDM The patient's presentation warrants further investigation. Previous medical records, if available, were reviewed. LABS The patient's laboratory testing was obtained and reviewed. No emergent treatment was required unless described below. CBC: No E/o of systemic infection or severe anemia or thrombocytopenia Chemistry: No E/o severe acidosis or alkalosis or diabetic ketoacidosis. Elevated creatinine in line with her known end-stage renal disease. PT/INR: No E/o significant coagulopathy EKG EKG read by me: Rate/Rhythm: Electronic atrial and ventricular paced rhythm at 77 bpm Intervals: Wide QRS duration in the setting of a paced rhythm [place]: Left axis deviation in the setting of a paced rhythm Impression: No sgarbosa criteria, no concern for acute ischemia IMAGING Imaging and Radiology interpretation reviewed. CXR FINDINGS: The heart and mediastinum are within normal limits. No discrete focal consolidation. There is no pleural effusion or pneumothorax. Left-sided cardiac pacer with 2 leads are noted. Left-sided subclavian central catheter tip terminates in the lower SVC. IMPRESSION: No acute cardiopulmonary process. Electronically viewed and signed by Calin Mary Physician on 10/04/2018 11:38 TREATMENT/DISPOSITION The patient presents for reported dialysis catheter replacement. That said, she was able to complete dialysis this morning. Upon further review of her medical record and on reassessment of the patient, it turns out that the patient is scheduled to have a shunt placed in same day surgery with Dr. Briones. The patient is stable for discharge to same day surgery. Preop testing was completed in the emergency department. The patient did not require emergent treatment. No emergent diagnoses were identified. At this time, I feel that the patient stable for discharge. The patient was instructed to follow-up with a primary care physician in 1-3 days. The patient will be given strict precautions with which to return to the emergency department. Prescriptions: None The patient's blood pressure was elevated at greater than 120/80 while in the emergency department. The patient was otherwise stable with no evidence of hypertensive urgency or emergency. The patient does not require admission for blood pressure control. I have discussed with the patient the risks of hypertension. I have instructed the patient to return to the ER for any new or worsening symptoms including chest pain, shortness of breath, headache, blurred vision, confusion, nausea, vomiting or LOC. I have advised the patient to follow up with the primary care physician for outpatient monitoring and treatment for hypertension in 1-3 days. Disclaimer: Inadvertent spelling and grammatical errors are likely due to EHR/dictation software use and do not reflect on the overall quality of patient care. Note that the electronic time recorded on this note does not necessarily reflect the actual time of the patient encounter. Departure Diagnosis: Primary Impression: Problem with dialysis access Encounter type: initial encounter Qualified Codes: T82.898A - Other specif ied complication of vascular prosthetic devices, implants and grafts, initial encounter Additional Impression: End stage renal disease on dialysis Condition: LONNIE Toscano MD Oct 04, 2018 12:16
[2018-10-04] MEDS ORDERED: CHOL400T10 PO (13:07)
[2018-10-04] MEDS ORDERED: HYDR-3672 PO (13:07)
[2018-10-04] MEDS ORDERED: PANT40TA3 PO (13:08)
== END 2018-10-04 12:35 | disposition home or self-care (01) ==
LOC: E/R 09:27
DX: T82.898A Other specified complication of vascular prosthetic devices, implants and grafts, initial encounter (principal); I12.0 Hypertensive chronic kidney disease with stage 5 chronic kidney disease or end stage renal disease; N18.6 End stage renal disease; E11.22 Type 2 diabetes mellitus with diabetic chronic kidney disease; Y82.9 Unspecified medical devices associated with adverse incidents; Z79.82 Long term (current) use of aspirin; Z99.2 Dependence on renal dialysis
CPT/HCPCS: 71045; 80048; 85025; 85610; 93005

== ENCOUNTER 2018-10-04 12:30 | Day surgery (SDC) | payer MEDICARE, OTHER ==
[~2018-10-04] VITALS: Ht 172.7 cm; Wt 88.7 kg
[2018-10-04] VITALS (18 sets, daily range): BP systolic 96–139; BP diastolic 6–76; PULSE 70–92; RESP 13–18; Ht 172.7 cm; Wt 88.7 kg
[2018-10-04] MEDS ORDERED: HEPARIN 1000 UNITS/ML 10 ML INJ ONE (12:35)
[2018-10-04] MEDS ORDERED: THROMBIN (BOVINE) 5,000 UNIT VIAL TP ONE (12:35)
[2018-10-04] MEDS ORDERED: GELATIN SIZE 100 SPONGE ONE (12:35)
[2018-10-04] MEDS ORDERED: LIDOCAINE 1% (MPF) 30 ML INJ ONE (12:35)
--- NOTE | 2018-10-04 12:38 | HPN ---
Date/Time of Note Date/Time of Note DATE: 10/04/18 TIME: 12:38 Interval H&P Admission Note Pt. seen H&P reviewed: No system changes JEANETTE HAYS MD Oct 04, 2018 12:38
--- NOTE | 2018-10-04 12:47 | PREAC ---
Date/Time of Note Date/Time of Note DATE: 10/04/18 TIME: 12:45 Anesthesia Eval and Record Evaluation Time Pre-Procedure Interview DATE: 10/04/18 TIME: 12:45 Age 68 Sex female NPO: 8 hrs Preoperative diagnosis ESRD Planned procedure RIGHT AV FISTULA CREATION Past Medical History Past Medical History: Includes Cardio: HTN Endo: Diabetes Pulm: Other (URI) Renal: ESRD on dialysis Heme: Anemia Surgery & Anesthesia Issues No known issue Meds Anticoagulation: No Beta Mar within 24 hr: Yes Reported Medications Metoprolol Succinate* (Toprol XL*) 50 Mg Tab.er.24h, 50 MG PO DAILY, #30 TAB 01/22/18 Clonidine Hcl* (Clonidine Hcl*) 0.1 Mg Tab, 0.1 MG PO Q8 PRN for PRN, TAB 01/22/18 Hydralazine Hcl* (Hydralazine Hcl*) 25 Mg Tab, 25 MG PO Q8 PRN for PRN, #90 TAB 01/22/18 Linagliptin (TRADJENTA) 5 Mg Tablet, 5 MG PO DAILY, TAB 01/22/18 Calcium Acetate* (Calcium Acetate*) 667 Mg Capsule, 2001 MG PO WITH MEALS, #90 CAP 01/22/18 Folic Acid* (Folic Acid*) 1 Mg Tablet, 1 MG PO DAILY, TAB 01/22/18 Docusate Sodium* (Colace*) 100 Mg Capsule, 100 MG PO BID, #60 CAP 01/22/18 Aspirin* (Aspirin* EC) 81 Mg Tablet.dr, 81 MG PO DAILY, TAB 01/22/18 Meds reviewed: Yes Allergies Coded Allergies: No Known Allergy (Unverified , 01/22/18) Allergies Reviewed: Yes Labs/Studies Labs Reviewed: Reviewed by anesthesiologist test: N/A Studies: ECG, CXR Pre-procedure Exam Airway: Adequate mouth opening, Adequate thyromental dist Mallampati: Mallampati I Teeth: Normal Lung: Normal Heart: Normal ASA Physical Status ASA physical status: 3 Emergency: None Planned Anesthetic General/MAC: LMA Nerve block: Brachial plexus (right) Planned Pain Management Single shot nerve block, Parenteral pain med Pre-operative Attestations Prior to commencing anesthesia and surgery, the patient was re-evaluated, there was verification of: *The patient's identity *The results of appropriate recent lab work and preoperative vital signs *The above evaluation not changing prior to induction *Anesthetic plan, risk benefits, alternative and complications discussed with patient/family; questions answered; patient/family understands, accepts and wishes to proceed. EILEEN DE LEON Oct 04, 2018 12:47
[2018-10-04] MEDS ORDERED: CHOL400T10 PO (13:07)
[2018-10-04] MEDS ORDERED: HYDR-3672 PO (13:07)
[2018-10-04] MEDS ORDERED: PANT40TA3 PO (13:08)
[2018-10-04] MEDS ORDERED: EPHEDrine SULFATE 50 MG/5 ML SYG ONE (13:30)
[2018-10-04] MEDS ORDERED: SEVOFLURANE 15 MIN ONE (13:30)
[2018-10-04] MEDS ORDERED: PROPOFOL 200 MG INJ ONE (13:30)
[2018-10-04] MEDS ORDERED: ETOMIDATE 20 MG INJ ONE (13:31)
[2018-10-04] MEDS ORDERED: FENTAnyl 50 MCG/ML VIAL ONE (13:32)
[2018-10-04] MEDS ORDERED: LIDOCAINE 2% (SDV) 5 ML INJ ONE (13:32)
[2018-10-04] MEDS ORDERED: CEFAZOLIN 1 GM INJ ONE (14:32)
[2018-10-04] MEDS ORDERED: ONDANSETRON 4 MG INJ ONE (14:36)
[2018-10-04] MEDS ORDERED: DEXAMETHASONE 4 MG/ML 5 ML INJ ONE (14:36)
[2018-10-04] MEDS ORDERED: ONDANSETRON 4 MG INJ IV PRN (15:00)
[2018-10-04] MEDS ORDERED: DIPHENHYDRAMINE 50 MG INJ IV PRN (15:00)
[2018-10-04] MEDS ORDERED: hydrALAzine 20 MG INJ IV PRN (15:00)
[2018-10-04] MEDS ORDERED: ALBUTEROL 0.083% (NEB) 2.5 MG/3 ML AMP HHN PRN (15:00)
[2018-10-04] MEDS ORDERED: EPHEDrine SULFATE 50 MG/5 ML SYG IV PRN (15:00)
[2018-10-04] MEDS ORDERED: MEPERIDINE 25 MG INJ IV PRN (15:00)
[2018-10-04] MEDS ORDERED: FENTAnyl 50 MCG/ML VIAL IV PRN ×3 (15:00)
[2018-10-04] MEDS ORDERED: HYDROmorphONE 1 MG/5 ML IV SYRINGE IV PRN ×3 (15:00)
[2018-10-04] MEDS ORDERED: LABETALOL HCL 20MG INJ IV PRN (15:00)
[2018-10-04] MEDS ORDERED: OXYCODONE/ACETAMINOPHEN (5/325) TAB PO PRN ×2 (15:00)
--- NOTE | 2018-10-04 15:31 | SIPON ---
Date/Time of Note Date/Time of Note DATE: 10/04/18 TIME: 15:30 Operative Report Preoperative Diagnosis ESRD Postoperative Diagnosis same Operation/Procedure Performed R arm AV graft creation (brachial-axillary) Surgeon see signature line [facility] assisted living none Anesthesia: general Estimated blood loss: 10 - 50 ml's Transfusion Required none Specimen none Grafts/Implants 5mm Artegraft Complications none JEANETTE HAYS MD Oct 04, 2018 15:31
--- NOTE | 2018-10-04 15:34 | PAC ---
Date/Time of Note Date/Time of Note DATE: 10/04/18 TIME: 15:34 Post-Anesthesia Notes Post-Anesthesia Note Last documented vital signs Vital Signs Date Temp Pulse Resp B/P (MAP) Pulse Ox O2 O2 Flow FiO2 Time Delivery Rate 10/04/18 97.6 70 16 130/60 97 Room Air 13:03 (83) Activity: WNL Respiratory function: WNL Cardiovascular function: WNL Mental status: Baseline Pain reasonably controlled: Yes Hydration appropriate: Yes Nausea/Vomiting absent: Yes KEREN REIS Oct 04, 2018 15:34
--- NOTE | 2018-10-04 18:13 | OPR ---
DATE OF OPERATION: 10/04/2018 PREOPERATIVE DIAGNOSIS: End-stage renal disease. POSTOPERATIVE DIAGNOSIS: End-stage renal disease. PROCEDURE PERFORMED: Creation of right arm AV graft brachial to axillary. SURGEON: Jeanette Bar MD ANESTHESIA: LMA. ESTIMATED BLOOD LOSS: 50 mL. COMPLICATIONS: There were no intraprocedural complications. INDICATIONS: This is a 68-year-old diabetic, hypertensive woman. She is morbidly obese. She has en d-stage renal disease. She has a pacemaker on the left and a Perm-A-Cath on the left. She has a briseida led right upper arm AV graft. I brought her in today for new AV graft creation. She had a recent ve nogram which showed the central veins on the right are patent. I did angioplasty the stenosis, but t hey are patent and a good axillary vein in the upper arm. DESCRIPTION OF PROCEDURE: Patient was brought to the operating room and placed on the table in the s upine position. I used ultrasound to carmenza the brachial artery just above the elbow and the axillary vein in the upper arm where it was patent. I marked these on the skin. After induction of general e ndotracheal anesthesia, the right arm was prepped and draped in the usual sterile fashion. I began b y making longitudinal incisions over the brachial artery just above the elbow and then over the axill naresh vein in the upper arm to redo as she had a previous brachial axillary graft that went above it. I made incisions and then dissected down through the subcutaneous tissue using electrocautery, caresosa hollyy dissected out the brachial artery just above the elbow. It was soft and healthy. I then did the same in the upper arm over the axillary vein. I dissected down to the axillary vein. It was a good caliber vein. There was a lot of scarring around it, but I was able to dissect it out nicely for se veral centimeters. Once I had the artery and vein exposed, I used a Irving tunneler to tunnel a 5 m m Artegraft between the 2 incisions going up over the biceps. I then clamped the axillary vein proxi myron and distally, made about a 1.5 cm long venotomy. I then spatulated the upper end of the graft to fit the venotomy and anastomosed the upper end of graft to the side of the vein using 6-0 Prolene suture running in standard vascular surgical fashion. I removed the clamps and it flushed easily. There was good backflow. I reclamped the graft, then clamped the brachial artery proximally and dist ally and made an 8 mm long anterior arteriotomy. I then cut the graft flush and then anastomosed the lower end of the graft to the side of the brachial artery using 6-0 Prolene suture in a running roddy dard vascular surgical fashion. I removed the clamps. There was good thrill and good hemostasis the re. I then closed the skin incisions in two layers using an inner layer of 3-0 Vicryl and an outer l dalia of 4-0 Monocryl subcuticular suture. Sterile dressing was applied. Patient was then transferre d to recovery room in stable condition. She tolerated the procedure well without any complication. Dictated By: JEANETTE GARCIA/VAL Conf#: [id number] DID#: [id number]
== END 2018-10-04 17:50 | disposition home or self-care (01) ==
LOC: SDS 12:30
PROVIDERS: ATTEND Surgery Vascular Surgery
DX: T82.898A Other specified complication of vascular prosthetic devices, implants and grafts, initial encounter (principal); Y84.1 Kidney dialysis as the cause of abnormal reaction of the patient, or of later complication, without mention of misadventure at the time of the procedure; I12.0 Hypertensive chronic kidney disease with stage 5 chronic kidney disease or end stage renal disease; N18.6 End stage renal disease; E11.9 Type 2 diabetes mellitus without complications
CPT/HCPCS: 36830; 82962; J0690; J1100; J1170; J1644; J2405; J3010; C1768

== ENCOUNTER 2018-10-12 09:42 | Emergency (ER) | payer MEDICARE, OTHER ==
[~2018-10-12] VITALS: Wt 91.0 kg
[~2018-10-12 09:42] MED LIST changes: -CALC667C PO; +CHOL400T10 PO; -CLON-379 PO; -HYDR-3671 PO; +HYDR-3672 PO; +PANT40TA3 PO
[2018-10-12] MEDS ORDERED: DOCU-144 PO (11:58)
[2018-10-12] MEDS ORDERED: FOLI-49 PO (11:59)
[2018-10-12] MEDS ORDERED: CALC667C PO (11:59)
[2018-10-12] MEDS ORDERED: METO-319 PO (11:59)
[2018-10-12] MEDS ORDERED: LINA5TAB PO (12:00)
[2018-10-12] MEDS ORDERED: HYDR-3671 PO (12:00)
[2018-10-12] MEDS ORDERED: LIDOCAINE 1% (MDV) 20 ML INJ ONE (14:44)
[2018-10-12] MEDS ORDERED: HEPARIN 1000 UNITS/ML 10 ML INJ ONE (14:44)
[2018-10-12] MEDS ORDERED: CEFAZOLIN 1 GM/50 ML (PMX) 50 ML IVPB ONE (14:45)
--- NOTE | 2018-10-12 15:50 | HPN ---
Date/Time of Note Date/Time of Note DATE: 10/12/18 TIME: 15:50 Interval H&P Admission Note Pt. seen H&P reviewed: No system changes EULALIO HWANG MD Oct 12, 2018 15:50
[2018-10-12 15:59] VITALS: BP 119/66; PULSE 83; RESP 18
--- NOTE | 2018-10-12 16:14 | ERD ---
ER Documentation Chief Complaint Chief Complaint DIALYSIS CATH NOT WORKING HPI Patient is a 68-year-old female with dialysis and diabetes who presents with a dialysis catheter issue. She has a dialysis catheter in the left chest wall. The catheter piece broke at the last dialysis session yesterday. She had a full dialysis yesterday. She has no complaints other than the catheter. Upon review of old medical record she has had multiple visits to the ER for various complaints. Her primary doctor is Dr. Ramos. ROS All systems reviewed and are negative except as per history of present illness. Medications Home Meds Reported Medications Hydralazine Hcl* (Hydralazine Hcl*) 25 Mg Tab, 75 MG PO TID, #90 TAB 10/12/18 Linagliptin (TRADJENTA) 5 Mg Tablet, 5 MG PO DAILY, TAB 10/12/18 Metoprolol Succinate* (Toprol XL*) 50 Mg Tab.er.24h, 50 MG PO DAILY, #30 TAB 10/12/18 Calcium Acetate* (Calcium Acetate*) 667 Mg Capsule, 1334 MG PO WITH MEALS, #60 CAP 10/12/18 Folic Acid* (Folic Acid*) 1 Mg Tablet, 1 MG PO DAILY, TAB 10/12/18 Docusate Sodium* (Colace*) 100 Mg Capsule, 100 MG PO DAILY, #30 CAP 10/12/18 Pantoprazole* (Protonix*) 40 Mg Tablet.dr, 40 MG PO DAILY, TAB 10/04/18 Cholecalciferol* (Vitamin D*) 400 Unit Tablet, 400 UNIT PO BID, TAB 10/04/18 Discontinued Reported Medications Hydralazine Hcl* (Hydralazine Hcl*) 50 Mg Tab, 50 MG PO TID, #90 TAB 10/04/18 Metoprolol Succinate* (Toprol XL*) 50 Mg Tab.er.24h, 50 MG PO DAILY, #30 TAB 01/22/18 Linagliptin (TRADJENTA) 5 Mg Tablet, 5 MG PO DAILY, TAB 01/22/18 Folic Acid* (Folic Acid*) 1 Mg Tablet, 1 MG PO DAILY, TAB 01/22/18 Docusate Sodium* (Colace*) 100 Mg Capsule, 100 MG PO BID, #60 CAP 01/22/18 Aspirin* (Aspirin* EC) 81 Mg Tablet.dr, 81 MG PO DAILY, TAB 01/22/18 Allergies Allergies: Coded Allergies: No Known Allergy (Unverified , 10/12/18) PMhx/Soc History of Surgery: Yes (pacemaker) Anesthesia Reaction: No Hx Neurological Disorder: No Hx Respiratory Disorders: No Hx Cardiac Disorders: Yes (pacemaker) Hx Psychiatric Problems: No Hx Miscellaneous Medical Probl: Yes (ESRD-HD //Monday) Hx Alcohol Use: No Hx Substance Use: No Hx Tobacco Use: No Smoking Status: Never smoker FmHx Family History: No diabetes Physical Exam Vitals Vital Signs Date Temp Pulse Resp B/P (MAP) Pulse Ox O2 O2 Flow FiO2 Time Delivery Rate 10/12/18 83 18 119/66 100 Room Air 15:59 (83) 10/12/18 97.9 69 16 123/65 100 Room Air 14:42 (84) 10/12/18 97.9 68 16 102/62 99 Room Air 12:27 (75) 10/12/18 98.1 98 18 110/59 99 09:44 (76) Physical Exam Const: No acute distress Head: Atraumatic Eyes: Normal Conjunctiva ENT: Normal External Ears, Nose and Mouth. Neck: Full range of motion. No meningismus. Resp: Clear to auscultation bilaterally Cardio: Regular rate and rhythm, no murmurs, dialysis catheter in the left chest wall and 1 of the 2 ports has a plastic piece which is broken Abd: Soft, non tender, non distended. Normal bowel sounds Skin: No petechiae or rashes Back: No midline or flank tenderness Ext: No cyanosis, or edema Neur: Awake and alert Psych: Normal Mood and Affect Result Diagram: 10/12/18 1227 10/12/18 1227 Results 24 hrs Laboratory Tests Test 10/12/18 12:27 White Blood Count 5.9 10^3/ul Red Blood Count 3.64 10^6/ul Hemoglobin 11.3 g/dl Hematocrit 35.6 % Mean Corpuscular Volume 97.8 fl Mean Corpuscular Hemoglobin 31.0 pg Mean Corpuscular Hemoglobin Concent 31.7 g/dl Red Cell Distribution Width 13.2 % Platelet Count 209 10^3/UL Mean Platelet Volume 9.8 fl Immature Granulocytes % 0.300 % Neutrophils % 56.4 % Lymphocytes % 18.6 % Monocytes % 13.7 % Eosinophils % 10.3 % Basophils % 0.7 % Nucleated Red Blood Cells % 0.0 /100WBC Immature Granulocytes # 0.020 10^3/ul Neutrophils # 3.3 10^3/ul Lymphocytes # 1.1 10^3/ul Monocytes # 0.8 10^3/ul Eosinophils # 0.6 10^3/ul Basophils # 0.0 10^3/ul Nucleated Red Blood Cells # 0.0 10^3/ul Prothrombin Time 12.1 Sec Prothrombin Time Ratio 0.9 INR International Normalized Ratio 0.89 Activated Partial Thromboplast Time 39.1 Sec Sodium Level 139 mmol/L Potassium Level 5.0 mmol/L Chloride Level 98 mmol/L Carbon Dioxide Level 29 mmol/L Anion Gap 12 Blood Urea Nitrogen 52 mg/dl Creatinine 9.03 mg/dl Est Glomerular Filtrat Rate mL/min 4 mL/min Glucose Level 116 mg/dl Calcium Level 9.8 mg/dl Total Bilirubin 0.0 mg/dl Direct Bilirubin 0.00 mg/dl Indirect Bilirubin 0.0 mg/dl Aspartate Amino Transf (AST/SGOT) 38 IU/L Alanine Aminotransferase (ALT/SGPT) < 6 IU/L Alkaline Phosphatase 118 IU/L Total Protein 8.5 g/dl Albumin 4.2 g/dl Globulin 4.30 g/dl Albumin/Globulin Ratio 0.97 Current Medications Medications Dose Sig/Amita Start Time Status Last (Trade) Ordered Route PRN Stop Time Admin Dose Reason Admin Lidocaine 20 ml STK-MED 10/12/18 DC (Xylocaine ONCE .ROUTE 14:44 10/12/18 1% (Mdv) 20 14:45 ml) Heparin 500 ml @ STK-MED 10/12/18 DC Sodium/ ONCE .ROUTE 14:44 10/12/18 Sodium 14:45 Chloride Heparin 10,000 unit STK-MED 10/12/18 DC Sodium ONCE .ROUTE 14:44 10/12/18 (Porcine) 14:45 (Heparin (1000 Units/ml)) Cefazolin 50 ml @ ud STK-MED 10/12/18 DC Sodium ONCE IVPB 14:45 10/12/18 14:46 Procedures/MDM Patient is a 68-year-old female who presents for dialysis access issue. The patient was evaluated and will need replacement of the catheter in the left chest wall. Dr. Ragland from interventional radiology was able to replace the catheter. The patient will be discharged. She can follow-up for her usual dialysis. Her potassium was normal at 5.0. Departure Diagnosis: Primary Impression: Complication of vascular access for dialysis Encounter type: initial encounter Qualified Codes: T82.9XXA - Unspecified complication of cardiac and vascular prosthetic device, implant and graft, initial encounter Condition: Fair Patient Instructions: Dialysis Access Referrals: JEFF RAMOS MD (PCP) Additional Instructions: Call your primary care doctor TOMORROW for an appointment during the next 1 WEEK.Tell the clerk secretary that you were referred from this facility.See the doctor sooner or return here if your condition worsens before your appointment time. LIAN ROJAS MD Oct 12, 2018 16:14
== END 2018-10-12 15:59 | disposition home or self-care (01) ==
LOC: E/R 09:42
DX: T82.9XXA Unspecified complication of cardiac and vascular prosthetic device, implant and graft, initial encounter (principal); E11.22 Type 2 diabetes mellitus with diabetic chronic kidney disease; N18.6 End stage renal disease; Y71.2 Prosthetic and other implants, materials and accessory cardiovascular devices associated with adverse incidents; Z95.0 Presence of cardiac pacemaker
CPT/HCPCS: 36558; 80053; 85025; 85610; 85730; J0690; J1644

== ENCOUNTER 2018-10-25 15:53 | Emergency (ER) | payer MEDICARE, OTHER ==
[~2018-10-25] VITALS: Ht 175.3 cm; Wt 89.2 kg
[~2018-10-25 15:53] MED LIST changes: -ASPI-817 PO; +CALC667C PO; +HYDR-3671 PO; -HYDR-3672 PO
[2018-10-25 16:06] VITALS: Ht 175.3 cm; Wt 89.2 kg
[2018-10-25] MEDS ORDERED: BENZONATATE 100 MG CAP PO ONE (20:00)
[2018-10-25] MEDS ORDERED: BENZ-6 PO (21:11)
[2018-10-25 21:20] VITALS: BP 122/65; PULSE 79; RESP 16
--- NOTE | 2018-10-25 23:03 | ERD ---
ER Documentation Chief Complaint Chief Complaint Complains of a cogh with SOB Hx of Dialysis HPI Patient is a 68-year-old female with dialysis, diabetes, and hypertension who presents with cough. The patient had a cough for the past 3 days. She also has an itchy throat and runny nose. She has no fevers. She has had no treatment as of yet. She got dialysis today. Upon review of old medical records the patient has multiple visits for various complaints. The patient's primary doctor is Dr. Moya. ROS All systems reviewed and are negative except as per history of present illness. Medications Home Meds Active Scripts Benzonatate* (Tessalon Perle*) 100 Mg Capsule, 100 MG PO Q8H PRN for COUGH, #30 CAP Prov:LIAN ROJAS MD 10/25/18 Reported Medications Hydralazine Hcl* (Hydralazine Hcl*) 25 Mg Tab, 75 MG PO TID, #90 TAB 10/12/18 Linagliptin (TRADJENTA) 5 Mg Tablet, 5 MG PO DAILY, TAB 10/12/18 Metoprolol Succinate* (Toprol XL*) 50 Mg Tab.er.24h, 50 MG PO DAILY, #30 TAB 10/12/18 Calcium Acetate* (Calcium Acetate*) 667 Mg Capsule, 1334 MG PO WITH MEALS, #60 CAP 10/12/18 Folic Acid* (Folic Acid*) 1 Mg Tablet, 1 MG PO DAILY, TAB 10/12/18 Docusate Sodium* (Colace*) 100 Mg Capsule, 100 MG PO DAILY, #30 CAP 10/12/18 Pantoprazole* (Protonix*) 40 Mg Tablet.dr, 40 MG PO DAILY, TAB 10/04/18 Cholecalciferol* (Vitamin D*) 400 Unit Tablet, 400 UNIT PO BID, TAB 10/04/18 Allergies Allergies: Coded Allergies: No Known Allergy (Unverified , 10/25/18) PMhx/Soc History of Surgery: Yes (pacemaker) Anesthesia Reaction: No Hx Neurological Disorder: No Hx Respiratory Disorders: No Hx Cardiac Disorders: Yes (pacemaker,HTN) Hx Psychiatric Problems: No Hx Miscellaneous Medical Probl: Yes (ESRD-HD //Monday,DM ) Hx Alcohol Use: No Hx Substance Use: No Hx Tobacco Use: No Smoking Status: Unknown if ever smoked FmHx Family History: No diabetes Physical Exam Vitals Vital Signs Date Temp Pulse Resp B/P (MAP) Pulse Ox O2 O2 Flow FiO2 Time Delivery Rate 10/25/18 79 16 122/65 100 Room Air 21:20 (84) 10/25/18 78 17 111/61 100 Room Air 19:45 (78) 10/25/18 98.1 78 20 113/56 91 16:06 (75) Physical Exam Const: No acute distress Head: Atraumatic Eyes: Normal Conjunctiva ENT: Normal External Ears, Nose and Mouth. Neck: Full range of motion. No meningismus. Resp: Clear to auscultation bilaterally Cardio: Regular rate and rhythm, no murmurs Abd: Soft, non tender, non distended. Normal bowel sounds Skin: No petechiae or rashes Back: No midline or flank tenderness Ext: No cyanosis, or edema Neur: Awake and alert Psych: Normal Mood and Affect Results 24 hrs Current Medications Medications Dose Sig/Amita Start Time Status Last (Trade) Ordered Route PRN Stop Time Admin Dose Reason Admin Benzonatate 200 mg ONCE ONCE 10/25/18 DC 10/25/18 (Tessalon) PO 20:00 19:55 10/25/18 20:01 Procedures/MDM Chest x-ray negative for pneumonia per radiology. Patient is a 68-year-old female presents with cough. Chest x-ray was negative for pneumonia. I believe the patient likely has an upper respiratory infection from a viral source at this time. The patient can return for any worsening symptoms. I doubt pneumonia or pneumothorax. The patient will be discharged but will need to follow-up closely with Dr. Moya. The patient can return for any worsening symptoms. Departure Diagnosis: Primary Impression: URI (upper respiratory infection) URI type: unspecified URI Qualified Codes: J06.9 - Acute upper respiratory infection, unspecified Additional Impression: Cough Condition: Fair Patient Instructions: Uri, Viral, No Abx (Adult) Additional Instructions: Call your primary care doctor TOMORROW for an appointment during the next 1 WEEK.Tell the personal secretary that you were referred from this facility.See the doctor sooner or return here if your condition worsens before your appointment time. LIAN ROJAS MD Oct 25, 2018 23:02
== END 2018-10-25 21:22 | disposition home or self-care (01) ==
LOC: E/R 15:53
DX: J06.9 Acute upper respiratory infection, unspecified (principal); I12.0 Hypertensive chronic kidney disease with stage 5 chronic kidney disease or end stage renal disease; N18.6 End stage renal disease; E11.22 Type 2 diabetes mellitus with diabetic chronic kidney disease; Z99.2 Dependence on renal dialysis
CPT/HCPCS: 71045

== ENCOUNTER 2018-10-28 20:31 | Inpatient (IN) | payer MEDICARE, OTHER ==
[~2018-10-28] VITALS: Ht 172.7 cm; Wt 90.9 kg
[~2018-10-28 20:31] MED LIST changes: +BENZ-6 PO
[2018-10-28] MEDS ORDERED: ACETAMINOPHEN 325 MG TAB PO STA (20:50)
[2018-10-28] MEDS ORDERED: CEFEPIME 2GM/50 ML (PMX) 50 ML IVPB STA (20:50)
[2018-10-28] MEDS ORDERED: SODIUM CHLORIDE 0.9% 1L BAG IV* STA (20:50)
[2018-10-28] MEDS ORDERED: VANCOMYCIN 1 GM (PMX) 250 ML IVPB ONE (21:00)
[2018-10-28] MEDS ORDERED: ONDANSETRON 4 MG INJ IV STA (21:22)
[2018-10-28] MEDS ORDERED: ONDANSETRON 4 MG INJ IV PRN (23:30)
[2018-10-28] MEDS ORDERED: ACETAMINOPHEN 325 MG TAB PO PRN (23:30)
[2018-10-29] VITALS (12 sets, daily range): BP systolic 79–126; BP diastolic 44–60; PULSE 58–109; RESP 18–20; Ht 172.7 cm; Wt 90.9 kg
--- NOTE | 2018-10-29 03:20 | ERD ---
ER Documentation Chief Complaint Chief Complaint FEVER WITH ACTIVE NAUSEA X 4 DAYS, RE-ADMITT HPI 68-year-old female with a history of ESRD on hemodialysis presenting with fever with nausea and vomiting for the past few days. She was here a few days ago for URI symptoms. She does endorse a cough. She denies any headache, vision dist urbance, chest pain, shortness of breath, abdominal pain, or diarrhea. She feels like her URI symptoms have been improving. ROS All systems reviewed and are negative except as per history of present illness. Medications Home Meds Active Scripts Benzonatate* (Tessalon Perle*) 100 Mg Capsule, 100 MG PO Q8H PRN for COUGH, #30 CAP Prov:LIAN ROJAS MD 10/25/18 Reported Medications Hydralazine Hcl* (Hydralazine Hcl*) 25 Mg Tab, 75 MG PO TID, #90 TAB 10/12/18 Linagliptin (TRADJENTA) 5 Mg Tablet, 5 MG PO DAILY, TAB 10/12/18 Metoprolol Succinate* (Toprol XL*) 50 Mg Tab.er.24h, 50 MG PO DAILY, #30 TAB 10/12/18 Calcium Acetate* (Calcium Acetate*) 667 Mg Capsule, 1334 MG PO WITH MEALS, #60 CAP 10/12/18 Folic Acid* (Folic Acid*) 1 Mg Tablet, 1 MG PO DAILY, TAB 10/12/18 Docusate Sodium* (Colace*) 100 Mg Capsule, 100 MG PO DAILY, #30 CAP 10/12/18 Pantoprazole* (Protonix*) 40 Mg Tablet.dr, 40 MG PO DAILY, TAB 10/04/18 Cholecalciferol* (Vitamin D*) 400 Unit Tablet, 400 UNIT PO BID, TAB 10/04/18 Allergies Allergies: Coded Allergies: No Known Allergy (Unverified , 10/25/18) PMhx/Soc History of Surgery: Yes (pacemaker) Anesthesia Reaction: No Hx Neurological Disorder: No Hx Respiratory Disorders: No Hx Cardiac Disorders: Yes (pacemaker,HTN) Hx Psychiatric Problems: No Hx Miscellaneous Medical Probl: Yes (ESRD-HD //Monday,DM ) Hx Alcohol Use: No Hx Substance Use: No Hx Tobacco Use: No Smoking Status: Never smoker FmHx Family History: No coronary disease Physical Exam Vitals Vital Signs Date Temp Pulse Resp B/P (MAP) Pulse Ox O2 O2 Flow FiO2 Time Delivery Rate 10/29/18 75 23 115/68 96 Room Air 2.0 01:01 (84) 10/28/18 100.2 82 19 117/59 97 Nasal 2.0 22:36 (78) Cannula 10/28/18 82 27 134/76 98 Nasal 2.0 21:58 (95) Cannula 10/28/18 Nasal 2 21:18 Cannula 10/28/18 102.7 105 22 155/74 95 20:37 (101) Physical Exam Const: Actively retching and vomiting Head: Atraumatic Eyes: Normal Conjunctiva ENT: Dry mucous membranes. Normal External Ears, Nose and Mouth. Neck: Full range of motion. No meningismus. Resp: Clear to auscultation bilaterally Cardio: Tachycardic with regular rhythm, no murmurs Abd: Soft, non tender, non distended. Normal bowel sounds Skin: No petechiae or rashes Back: No midline or flank tenderness Ext: No cyanosis, or edema Neur: Awake and alert, oriented, normal speech, no facial asymmetry, moving all extremities Psych: Normal Mood and Affect Result Diagram: 10/28/18211810/28/182118 Results 24 hrs Laboratory Tests Test 10/28/18 21:19 10/28/18 22:55 10/29/18 01:56 White Blood Count 13.8 10^3/ul Red Blood Count 3.51 10^6/ul Hemoglobin 11.1 g/dl Hematocrit 35.4 % Mean Corpuscular Volume 100.9 fl Mean Corpuscular Hemoglobin 31.6 pg Mean Corpuscular 31.4 g/dl Hemoglobin Concent Red Cell Distribution Width 15.3 % Platelet Count 198 10^3/UL Mean Platelet Volume 9.9 fl Immature Granulocytes % 0.600 % Neutrophils % 80.6 % Lymphocytes % 4.8 % Monocytes % 12.9 % Eosinophils % 0.9 % Basophils % 0.2 % Nucleated Red Blood Cells % 0.0 /100WBC Immature Granulocytes # 0.080 10^3/ul Neutrophils # 11.1 10^3/ul Lymphocytes # 0.7 10^3/ul Monocytes # 1.8 10^3/ul Eosinophils # 0.1 10^3/ul Basophils # 0.0 10^3/ul Nucleated Red Blood Cells # 0.0 10^3/ul Prothrombin Time 13.2 Sec Prothrombin Time Ratio 1.0 INR International Normalized Ratio 0.99 Activated Partial Thromboplast 34.6 Sec Time Sodium Level 135 mmol/L Potassium Level 4.8 mmol/L Chloride Level 97 mmol/L Carbon Dioxide Level 22 mmol/L Anion Gap 16 Blood Urea Nitrogen 62 mg/dl Creatinine 9.44 mg/dl Est Glomerular Filtrat Rate mL/min 4 mL/min Glucose Level 174 mg/dl Lactic Acid Level 1.4 mmol/L 1.2 mmol/L 1.7 mmol/L Calcium Level 9.6 mg/dl Total Bilirubin 0.1 mg/dl Direct Bilirubin 0.00 mg/dl Indirect Bilirubin 0.1 mg/dl Aspartate Amino Transf (AST/SGOT) 26 IU/L Alanine < 6 IU/L Aminotransferase (ALT/SGPT) Alkaline Phosphatase 138 IU/L Troponin I 0.028 ng/ml Total Protein 8.6 g/dl Albumin 4.4 g/dl Globulin 4.20 g/dl Albumin/Globulin Ratio 1.04 Current Medications Medications Dose Sig/Amita Start Time Status Last (Trade) Ordered Route PRN Stop Time Admin Dose Reason Admin 650 mg ONCE STAT 10/28/18 DC 10/28/18 Acetaminophen PO 20:50 20:50 (Tylenol 10/28/18 20:53 Tab) Sodium 1,920 ml BOLUS OVER 2 10/28/18 DC 10/28/18 Chloride HOURS STAT 20:50 20:50 (NS) IV* 10/28/18 20:53 Cefepime HCl 50 ml @ ONCE STAT 10/28/18 DC 10/28/18 100 mls/hr IVPB 20:50 20:50 10/28/18 21:19 Vancomycin 250 ml @ ONCE ONCE 10/28/18 DC 10/28/18 HCl 125 mls/hr IVPB 21:00 21:00 10/28/18 22:59 Ondansetron 4 mg ONCE STAT 10/28/18 DC 10/28/18 HCl (Zofran IV 21:22 21:51 Inj) 10/28/18 21:23 Ondansetron 4 mg ER BRIDGE 10/28/18 HCl (Zofran PRN IV 23:30 Inj) NAUSEA/VOMITI 10/29/18 23:29 NG 650 mg ER BRIDGE 10/28/18 Acetaminophen PRN PO 23:30 (Tylenol .MILD PAIN 10/29/18 23:29 Tab) 1-3 OR TEMP Procedures/MDM EMERGENT LABS AND DIAGNOSTIC STUDIES: Lab Results above were reviewed and interpreted by me. CBC: Mild leukocytosis, possibly due to infection CMP: Elevated BUN and creatinine, consistent with chronic kidney disease. No acidosis. No evidence of electrolyte abnormality, hypoglycemia, liver failure, or biliary obstruction Troponin within normal limits, not indicative of cardiac ischemia Lactate within normal limits without evidence of sepsis or tissue hypoperfusion 12-lead EKG was interpreted by Grey Paniagua MD: V paced 106 bpm Normal axis Normal intervals No acute ST or T wave changes suggestive of acute ischemia or STEMI. Radiology Results as interpreted by Radiology below were reviewed by Chirag Paniagua MD: Chest x-ray: No acute abnormalities Initial Nursing notes reviewed. Previous Medical Records requested via the Electronic Health Record. EMERGENCY DEPARTMENT COURSE / MEDICAL DECISION MAKING: Patient presented with fever and tachycardia. Given she is on dialysis, she is at increased risk for bacteremia. For this reason sepsis workup was initiated. There is no signs of severe sepsis or septic shock. Lactate is within normal limits. She was treated with IV fluids and antibiotics. I feel the patient will require admission for observation, careful hydration, antibiotics, and continued search for infectious source. I do not suspect meningitis. Patient is agreeable with this plan. Critical Care Time: 35 minutes Treatments/Evaluations: Close monitoring and treatment of unstable vital signs, cardiorespiratory, and neurologic status, while maintaining tight balance of fluid, respiratory, and cardiac interventions. This time includes discussing the case with the patient and the patients family. This time does not include all procedures stated elsewhere in this record. This time also includes reviewing old records, labs and radiological studies. This time includes examining and re- examining the patient. Additionally, this time also includes arranging care with admitting and consulting physicians. Accepting Care Team: Current data and ongoing care discussed. Time: Time of admission Primary Provider: Dr. Leonardo Outstanding Data: Cultures Departure Diagnosis: Primary Impression: SIRS (systemic inflammatory response syndrome) Additional Impression: Vomiting Vomiting type: unspecified Vomiting Intractability: non-intractable Nausea presence: with nausea Qualified Codes: R11.2 - Nausea with vomiting, unspecified Condition: Fair PRIYANK PANIAGUA MD Oct 29, 2018 03:20
[2018-10-29] MEDS ORDERED: ACETAMINOPHEN 325 MG TAB PO PRN (05:30)
[2018-10-29] MEDS ORDERED: VANCOMYCIN IV PER PHARMACY XX SCH (05:30)
[2018-10-29] MEDS ORDERED: ONDANSETRON 4 MG INJ IV PRN (05:30)
[2018-10-29] MEDS ORDERED: VANCOMYCIN 1 GM 250 ML IVPB SCH (06:00)
[2018-10-29] MEDS ORDERED: PANTOPRAZOLE 40 MG INJ IV SCH (06:00)
[2018-10-29] MEDS: INSULIN ASPART [NOVOLOG] 3 ML PEN SC SCH ×4 (07:46→20:09)
[2018-10-29] MEDS: CEFEPIME 1GM/50 ML (PMX) 50 ML IVPB SCH (08:55)
[2018-10-29] MEDS: ALBUTEROL/IPRATROPIUM (NEB) 3 ML AMP HHN SCH ×4 (09:41→21:18)
--- NOTE | 2018-10-29 11:28 | QN ---
Documentation Comment seen and examined ELIANA NEELY MD Oct 29, 2018 11:28
[2018-10-29] MEDS ORDERED: HEPARIN 1000 UNITS/ML 10 ML INJ CATHETER SCH (12:00)
--- NOTE | 2018-10-29 12:07 | CONS ---
Assessment/Plan Assessment/Plan Assessment/Plan (Daily) Chest x-ray showing vague left upper lobe infiltrative changes. Assessment recommendations; 1. Patient admitted with a 2-day history of shortness of breath, coughing and high fever. Chest x-ray showing left upper lobe infiltrate possibly representing acute community-acquired pneumonia with possibility of viral component as well. The patient does have slight interstitial pattern on chest x-ray as well. 2. History of end-stage renal disease, on hemodialysis. Episode of fever possibly could be dialysis related as well. 3. History of hypertension. 4. History of cardiac arrhythmia, status post pacemaker placement in the past. 5. Mild anemia and thrombocytopenia. Continue current supportive care. Add Tamiflu 30 mg twice daily. Continue current antibiotic regimen as well. Obtain follow-up chest x-ray in 24 hours. Consultation Date/Type/Reason Admit Date/Time Oct 28, 2018 at 23:43 Date of Consultation: Oct 29, 2018 Type of Consult Pulmonary Pulmonary consult requested for evaluation of shortness of breath. Patient is a very pleasant 68-year-old lady who came into the hospital yesterday with a 2-day history of high fever 102 F associated with cough and sputum production. Patient also complained of some shortness of breath. She denies any body aches or myalgias. Also denies any nausea vomiting. After being admitted patient has been started on appropriate antimicrobial regimen with significant improvement in symptoms. According to the patient he was fine until symptoms started 2 days ago. Past medical history; 1. History of end-stage renal disease, on hemodialysis. Last dialysis was on this past Monday. 2. History of cardiac arrhythmia, status post pacemaker placement in the past. 3. Chronic anemia and thrombocytopenia. Medications; reviewed. Allergies; none. Social history; no history of any smoking alcohol or drug abuse. Family history; she is , lives with her . No history of any illnesses in the family. Occupational history; patient is on disability. Review of systems; denies any headache, visual changes. Any sinus symptoms. Denies any chest pain. Complains of mild cough and shortness of breath. Complains of brown sputum production. Denies any abdominal pain, nausea vomiting, melena, hematochezia, diarrhea. Denies any urinary symptoms. Any weight change. Any edema. Any orthopnea. General exam; elderly female, awake alert, currently in no distress. Date/Time of Note DATE: 3/25/19 TIME: 12:02 Past Medical History Home Meds Active Scripts Benzonatate* (Tessalon Perle*) 100 Mg Capsule, 100 MG PO Q8H PRN for COUGH, #30 CAP Prov:LIAN ROJAS MD 10/25/18 Reported Medications Hydralazine Hcl* (Hydralazine Hcl*) 25 Mg Tab, 75 MG PO TID, #90 TAB 10/12/18 Linagliptin (TRADJENTA) 5 Mg Tablet, 5 MG PO DAILY, TAB 10/12/18 Metoprolol Succinate* (Toprol XL*) 50 Mg Tab.er.24h, 50 MG PO DAILY, #30 TAB 10/12/18 Calcium Acetate* (Calcium Acetate*) 667 Mg Capsule, 1334 MG PO WITH MEALS, #60 CAP 10/12/18 Folic Acid* (Folic Acid*) 1 Mg Tablet, 1 MG PO DAILY, TAB 10/12/18 Docusate Sodium* (Colace*) 100 Mg Capsule, 100 MG PO DAILY, #30 CAP 10/12/18 Pantoprazole* (Protonix*) 40 Mg Tablet.dr, 40 MG PO DAILY, TAB 10/04/18 Cholecalciferol* (Vitamin D*) 400 Unit Tablet, 400 UNIT PO BID, TAB 10/04/18 Medications Current Medications Insulin Aspart (Novolog Insulin Pen) NOVOLOG *MILD* ALGORITHM WITH MEALS BEDTIME SC ; Start 10/29/18 at 08:00 Albuterol/ Ipratropium (Duoneb) 3 ml Q4H RESP THERAPY HHN Last administered on 10/29/18at 09:41; Admin Dose 3 ML; Start 10/29/18 at 09:00 Acetaminophen (Tylenol Tab) 650 mg Q6H PRN PO MILD PAIN(1-3)OR ELEVATED TEMP; Start 10/29/18 at 05:30 Ondansetron HCl (Zofran Inj) 4 mg Q4H PRN IV NAUSEA AND/OR VOMITING; Start 10/29/18 at 05:30 Cefepime HCl 50 ml @ 100 mls/hr DAILY IVPB Last administered on 10/29/18at 08:55; Admin Dose 100 MLS/HR; Start 10/29/18 at 09:00 Vancomycin HCl (Vanco Iv Per Pharmacy) VANCOMYCIN PER PHARMACY PER PROTOCOL XX ; Start 10/29/18 at 05:30 Benzonatate (Tessalon) 100 mg Q8H PRN PO COUGH; Start 10/29/18 at 12:30 Calcium Acetate (Phoslo) 1,334 mg WITH MEALS PO ; Start 10/29/18 at 12:00 Linagliptin (Tradjenta) 5 mg DAILY PO ; Start 10/29/18 at 12:00 Pantoprazole (Protonix Tab) 40 mg DAILY@0600 PO ; Start 10/30/18 at 06:00 Diagnostic Test (Pha) (Accu-Chek) 1 ea AC MEALS AND BEDTIME XX ; Start 10/29/18 at 17:30 Heparin Sodium (Porcine) (Heparin (1000 Units/ml)) 4,000 unit AFTER DIALYSIS CATHETER ; Start 10/29/18 at 12:00 Allergies: Coded Allergies: No Known Allergy (Unverified , 10/25/18) Past Surgical History Past Surgical Hx: other Social History Smoking Status: Never smoker Exam/Review of Systems Exam Vitals Vital Signs Date Temp Pulse Resp B/P (MAP) Pulse Ox O2 O2 Flow FiO2 Time Delivery Rate 10/29/18 91/55 (67) 11:53 10/29/18 98.3 74 18 96 11:45 10/29/18 2.0 27 09:50 10/29/18 Nasal 09:50 Cannula Exam HEENT exam; supple neck, no JVD. No lymphadenopathy. Midline trachea. No thyromegaly. Patient has fair dentition. No neck masses. Pupils are midsize bilaterally. Chest exam; diminished breath sounds bilaterally. S1-S2 audible, no murmurs. Regular rhythm. Pacemaker in left chest wall. Abdomen exam; soft, nontender. No organomegaly. Bowel sounds audible. Extremity exam; no edema or clubbing. NUTRIENT MANAGEMENT SPECIALIST exam; no focal deficit. Results Result Diagram: 10/28/18211810/28/182118 Results 24hrs Laboratory Tests Test 10/28/18 21:19 10/28/18 22:55 10/29/18 01:56 10/29/18 07:34 White Blood Count 13.8 #H Red Blood Count 3.51 L Hemoglobin 11.1 L Hematocrit 35.4 L Mean Corpuscular 100.9 Volume Mean Corpuscular 31.6 Hemoglobin Mean Corpuscular 31.4 L Hemoglobin Concent Red Cell 15.3 H Distribution Width Platelet Count 198 Mean Platelet Volume 9.9 Immature 0.600 H Granulocytes % Neutrophils % 80.6 H Lymphocytes % 4.8 L Monocytes % 12.9 H Eosinophils % 0.9 Basophils % 0.2 Nucleated Red Blood 0.0 Cells % Immature 0.080 H Granulocytes # Neutrophils # 11.1 H Lymphocytes # 0.7 L Monocytes # 1.8 H Eosinophils # 0.1 Basophils # 0.0 Nucleated Red Blood 0.0 Cells # Prothrombin Time 13.2 Prothrombin Time 1.0 Ratio INR International 0.99 Normalized Ratio Activated 34.6 Partial Thromboplast Time Sodium Level 135 Potassium Level 4.8 Chloride Level 97 Carbon Dioxide Level 22 Anion Gap 16 H Blood Urea Nitrogen 62 H Creatinine 9.44 H Est Glomerular 4 L Filtrat Rate mL/min Glucose Level 174 Lactic Acid Level 1.4 1.2 1.7 Calcium Level 9.6 Total Bilirubin 0.1 L Direct Bilirubin 0.00 Indirect Bilirubin 0.1 Aspartate Amino 26 Transf (AST/SGOT) Alanine < 6 L Aminotransferase (AL T/SGPT) Alkaline Phosphatase 138 H Troponin I 0.028 Total Protein 8.6 H Albumin 4.4 Globulin 4.20 H Albumin/Globulin 1.04 Ratio Bedside Glucose 122 Medications Medication Current Medications Insulin Aspart (Novolog Insulin Pen) NOVOLOG *MILD* ALGORITHM WITH MEALS BEDTIME SC ; Start 10/29/18 at 08:00 Albuterol/ Ipratropium (Duoneb) 3 ml Q4H RESP THERAPY HHN Last administered on 10/29/18at 09:41; Admin Dose 3 ML; Start 10/29/18 at 09:00 Acetaminophen (Tylenol Tab) 650 mg Q6H PRN PO MILD PAIN(1-3)OR ELEVATED TEMP; Start 10/29/18 at 05:30 Ondansetron HCl (Zofran Inj) 4 mg Q4H PRN IV NAUSEA AND/OR VOMITING; Start 10/29/18 at 05:30 Cefepime HCl 50 ml @ 100 mls/hr DAILY IVPB Last administered on 10/29/18at 08:55; Admin Dose 100 MLS/HR; Start 10/29/18 at 09:00 Vancomycin HCl (Vanco Iv Per Pharmacy) VANCOMYCIN PER PHARMACY PER PROTOCOL XX ; Start 10/29/18 at 05:30 Benzonatate (Tessalon) 100 mg Q8H PRN PO COUGH; Start 10/29/18 at 12:30 Calcium Acetate (Phoslo) 1,334 mg WITH MEALS PO ; Start 10/29/18 at 12:00 Linagliptin (Tradjenta) 5 mg DAILY PO ; Start 10/29/18 at 12:00 Pantoprazole (Protonix Tab) 40 mg DAILY@0600 PO ; Start 10/30/18 at 06:00 Diagnostic Test (Pha) (Accu-Chek) 1 ea AC MEALS AND BEDTIME XX ; Start 10/29/18 at 17:30 Heparin Sodium (Porcine) (Heparin (1000 Units/ml)) 4,000 unit AFTER DIALYSIS CATHETER ; Start 10/29/18 at 12:00 JAJA THOMPSON 25, 2019 12:07
[2018-10-29] MEDS ORDERED: AZITHROMYCIN 250 MG TAB PO SCH (12:30)
[2018-10-29] MEDS ORDERED: OSELTAMIVIR 30 MG CAP PO SCH ×2 (12:30→13:30)
[2018-10-29] MEDS ORDERED: BENZONATATE 100 MG CAP PO PRN (12:30)
[2018-10-29] MEDS: CALCIUM ACETATE 667 MG CAP PO SCH ×2 (12:46→17:41)
[2018-10-29] MEDS: LINAGLIPTIN 5 MG TABLET PO SCH (12:46)
--- NOTE | 2018-10-29 13:35 | HP ---
DATE OF ADMISSION: 10/28/2018 REASON FOR ADMISSION: Fevers and shortness of breath. HISTORY OF PRESENT ILLNESS: This is a 68-year-old female with a past medical history of end-stage re nal disease on hemodialysis Monday, and Monday; hypertension, diabetes, pacemaker placeme nt, atherosclerotic heart disease, dyslipidemia, CHF, pneumonia, presented to the Emergency [facility] complaining of cough and shortness of breath for the last 4 to 5 days. The patient said her grandd susan was sick at home. She was having some cough and shortness of breath for the last 3 to 4 days . She came to the Emergency Department here was sent home with antibiotics; however, did not feel be tter, started getting worse and came to the Emergency Department. The patient was also Upon arrival to the ER, the patient had fever of 102, pulse was 105, blood pressure was 155/74. White count 13.8, hemoglobin 11.1, platelet count 198, potassium of 4.8, BUN of 62, creatinine 9.44. A chest x-ray sh owed no acute cardiopulmonary disease, aortic atherosclerotic calcification, left IJ Perm-A-Cath. [place] pressley was started on cefepime and vancomycin and was admitted for further management. PAST MEDICAL HISTORY: 1. Diabetes. 2. Hypertension. 3. Hyperlipidemia. 4. End-stage renal disease on hemodialysis Monday, and Monday. 5. Atherosclerotic heart disease. 6. Congestive heart failure. 7. History of bronchiectasis. ALLERGIES: None. PAST SURGICAL HISTORY: The patient had ovarian tumor removal, pacemaker and right fistula creation. SOCIAL HISTORY: Denies any history of smoking, alcohol or any drug use. MEDICATIONS: Taking at home are: 1. Hydralazine 75 t.i.d. 2. Metoprolol 50. 3. Calcium acetate. 4. Benoxinate. 5. Colace. 6. Pantoprazole. 7. Tradjenta. 8. Cholecalciferol. 9. Folic acid. REVIEW OF SYSTEMS: The patient complained of cough, shortness of breath for the past 4 to 5 days. D enies any abdominal pain, nausea, vomiting, diarrhea. Denied any headache, any blurry vision, denied any hematemesis, any melena, any blood per rectum. Denies any focal neurological deficit. PHYSICAL EXAMINATION: VITAL SIGNS: Currently temperature 98.0, pulse 68, respirations 19, blood pressure 98/52, saturating 96% on 2 liters. GENERAL: The patient is awake, alert, oriented, does not appear in any acute distress. HEENT: Pupils equal, round, react to light. NECK: Supple, no JVD. HEART: Regular rate and rhythm. Patient has paced. LUNGS: Crackles heard on the right base and few wheezes heard on the left. ABDOMEN: Positive bowel sounds. EXTREMITIES: Trace edema. CHEST: The patient has a pacemaker in place and the left PermCath. The patient also has a right AV fistula which was placed new. LABORATORY DATA: White count shows a 13.8, hemoglobin 11.1, platelet count 198. BMP within normal l imit except BUN of 62, creatinine 9.44. ASSESSMENT AND PLAN: This is a 68-year-old female who presented with: 1. Fevers, cough, shortness of breath. Lungs have few crackles on the right and wheezes, could be s econdary to underlying pneumonia, early pneumonia/also underlying bronchitis. 2. Fevers. The patient had a recent Perm-A-Cath that was switched 1 month ago. Rule out also line sepsis. 3. End-stage renal disease on hemodialysis. 4. Hypertension. 5. Hyperlipidemia. 6. Atherosclerosis. 7. Diabetes. 8. History of ovarian tumor. PLAN: At this period of time, the patient is admitted to [facility]. We will continue the patient on anti biotics, vancomycin and cefepime. We will send for sputum cultures. Blood cultures have been pendin g. We will also send the cultures from Perm-A-Cath. ID has been consulted. We will also probably o btain CT of the chest. Rest of the treatment will depend of the patient's hospitalization course. Dictated By: ELIANA GOMEZ/VAL Conf#: [id number] DID#: [id number] CC: ELIANA NEELY;*EndCC*
--- NOTE | 2018-10-29 13:46 | CONS ---
DATE OF ADMISSION: 10/28/2018 DATE OF CONSULTATION: 10/29/2018 TYPE OF CONSULTATION: Infectious disease. REASON FOR CONSULTATION: Antibiotic management. HISTORY OF PRESENT ILLNESS: Yael Antoine is a 68-year-old female who is admitted with fever and na usea for 4 days. The patient's problems include end-stage renal disease on hemodialysis with fever, nausea, vomiting. She has a history of a few days of upper respiratory tract infection. She denies any headaches or shortness of breath. She feels like she is improving. Past problems include: 1. End-stage renal disease on hemodialysis. 2. Pacemaker. 3. Hypertension. FAMILY HISTORY: Noncontributory. SOCIAL HISTORY: She does not smoke, drink or abuse drugs. ALLERGIES: NONE TO PENICILLIN, SULFA OR FOODS. MEDICATIONS: Per chart. REVIEW OF SYSTEMS: Noncontributory. HOSPITAL COURSE: The patient is admitted with temperature of 102.7. White count of 13.8, H and H of 11.1 and 35.4, platelet count 198,000. BUN and creatinine is 62/9.44. Chest x-ray shows no acute c ardiopulmonary disease, aortic atherosclerosis, left IJ PermCath in appropriate position. PHYSICAL EXAMINATION: GENERAL: The patient is awake, responsive, in no acute distress. VITAL SIGNS: Stable. She is afebrile. SKIN: Without generalized rash. HEENT: Within normal limits. NECK: Supple. LYMPH NODES: None palpable. CHEST: Decreased breath sounds at the bases. HEART: She is tachycardic without murmur or gallop. ABDOMEN: Soft, nontender without organosplenomegaly or masses. EXTREMITIES: Without cyanosis, clubbing or edema. RECTAL AND GENITAL: Deferred. NEUROLOGIC: No focal neurological abnormality. IMPRESSION AND PLAN: As noted, her white count was 13.8, temperature was 102.7. The patient was sta rted on vancomycin and cefepime. We have to be concerned about the possibility of infected catheter. She may just have an upper respiratory tract infection. She has evidence of systemic inflammatory response syndrome. I will dictate my findings to Dr. Leonardo. I want to thank her for asking us to s ee this joyce lady in consultation. Dictated By: LIDA GARBER MD, JD/VAL Conf#: [id number] DID#: [id number] CC: ELIANA LEONARDO;*End*
[2018-10-29] MEDS: ACCU-CHEK XX SCH ×2 (17:30→20:09)
--- NOTE | 2018-10-29 18:00 | CONS ---
Assessment/Plan Assessment/Plan Hospital Course (Demo Recall) 1. Complete heart block status post MRI compatible permanent pacemaker 2. Fever cough possible viral syndrome pneumonia versus others including bacteremia 3. Hypertension 4. Diabetes 5. End-stage renal disease hemodialysis Recommendation: Antibiotic management as per ID I have ordered influenza test as well to rule out influenza Hemodialysis as per renal Continue home blood pressure medications Normal pacemaker function on telemetry. Thank you for his referral will continue to follow along with you YOSEPH PERDOMO MD [facility] Consultation Date/Type/Reason Admit Date/Time Oct 28, 2018 at 23:43 Date of Consultation: Oct 29, 2018 Type of Consult Cardiology Reason for Consultation [facility] Requesting Provider: ELIANA NEELY MD Date/Time of Note DATE: 10/29/18 TIME: 17:54 Hx of Present Illness Interventional cardiology consultation note Chief complaint: Fever cough shortness of breath Reason for consult: Complete heart block/permanent pacemaker History of present illness: Thank you for this referral. The patient review of the chart review of the old chart. Patient also is very well-known to me for past many years and has been seen in the office as well as hospitals. This is a very pleasant 68-year-old female with a past medical history of end- stage renal disease on hemodialysis bleed heart block status post permanent pacemaker hypertension, diabetes, pacemaker placement, , dyslipidemia, who, presented to the Emergency Department complaining of cough and shortness of breath for the last 4 to 5 days. The patient said her granddaughter was sick at home. She was having some cough and shortness of breath for the last 3 to 4 days. She does state that she has a pressure of 104. No chest pain or pressure no palpitation no PND orthopnea. PAST MEDICAL HISTORY: 1. Diabetes. 2. Hypertension. 3. Hyperlipidemia. 4. End-stage renal disease on hemodialysis Monday, and Monday. 5. Atherosclerotic heart disease. 6. Congestive heart failure. 7. History of bronchiectasis. ALLERGIES: None. PAST SURGICAL HISTORY: The patient had ovarian tumor removal, and right fistula creation. 05/20/2014: Dual-chamber (MRI compatible Biotronik ) permanent pacemaker placed by Dr. Perdomo SOCIAL HISTORY: Denies any history of smoking, alcohol or any drug use. Medications were reviewed as per medical reconciliation sheet Family history: No reported history of coronary artery disease Review of system: Patient denies all others except for above-mentioned Past Medical History Home Meds Active Scripts Benzonatate* (Tessalon Perle*) 100 Mg Capsule, 100 MG PO Q8H PRN for COUGH, #30 CAP Prov:LIAN ROJAS MD 10/25/18 Reported Medications Hydralazine Hcl* (Hydralazine Hcl*) 25 Mg Tab, 75 MG PO TID, #90 TAB 10/12/18 Linagliptin (TRADJENTA) 5 Mg Tablet, 5 MG PO DAILY, TAB 10/12/18 Metoprolol Succinate* (Toprol XL*) 50 Mg Tab.er.24h, 50 MG PO DAILY, #30 TAB 10/12/18 Calcium Acetate* (Calcium Acetate*) 667 Mg Capsule, 1334 MG PO WITH MEALS, #60 CAP 10/12/18 Folic Acid* (Folic Acid*) 1 Mg Tablet, 1 MG PO DAILY, TAB 10/12/18 Docusate Sodium* (Colace*) 100 Mg Capsule, 100 MG PO DAILY, #30 CAP 10/12/18 Pantoprazole* (Protonix*) 40 Mg Tablet.dr, 40 MG PO DAILY, TAB 10/04/18 Cholecalciferol* (Vitamin D*) 400 Unit Tablet, 400 UNIT PO BID, TAB 10/04/18 Medications Current Medications Insulin Aspart (Novolog Insulin Pen) NOVOLOG *MILD* ALGORITHM WITH MEALS BEDTIME SC Last administered on 10/29/18at 12:53; Admin Dose 1 UNIT; Start 10/29/18 at 08:00 Albuterol/ Ipratropium (Duoneb) 3 ml Q4H RESP THERAPY HHN Last administered on 10/29/18at 13:58; Admin Dose 3 ML; Start 10/29/18 at 09:00 Acetaminophen (Tylenol Tab) 650 mg Q6H PRN PO MILD PAIN(1-3)OR ELEVATED TEMP; Start 10/29/18 at 05:30 Ondansetron HCl (Zofran Inj) 4 mg Q4H PRN IV NAUSEA AND/OR VOMITING; Start 10/29/18 at 05:30 Cefepime HCl 50 ml @ 100 mls/hr DAILY IVPB Last administered on 10/29/18at 08:55; Admin Dose 100 MLS/HR; Start 10/29/18 at 09:00 Vancomycin HCl (Vanco Iv Per Pharmacy) VANCOMYCIN PER PHARMACY PER PROTOCOL XX ; Start 10/29/18 at 05:30 Benzonatate (Tessalon) 100 mg Q8H PRN PO COUGH; Start 10/29/18 at 12:30 Calcium Acetate (Phoslo) 1,334 mg WITH MEALS PO Last administered on 10/29/18at 17:41; Admin Dose 1,334 MG; Start 10/29/18 at 12:00 Linagliptin (Tradjenta) 5 mg DAILY PO Last administered on 10/29/18at 12:46; Admin Dose 5 MG; Start 10/29/18 at 12:00 Pantoprazole (Protonix Tab) 40 mg DAILY@0600 PO ; Start 10/30/18 at 06:00 Diagnostic Test (Pha) (Accu-Chek) 1 ea AC MEALS AND BEDTIME XX ; Start 10/29/18 at 17:30 Heparin Sodium (Porcine) (Heparin (1000 Units/ml)) 4,000 unit AFTER DIALYSIS CATHETER ; Start 10/29/18 at 12:00 Azithromycin (Zithromax) 250 mg DAILY PO ; Start 10/30/18 at 09:00; Stop 11/02/18 at 09:01 Oseltamivir Phosphate (Tamiflu) 30 mg AFTER DIALYSIS PO ; Start 10/29/18 at 12:30; Stop 11/02/18 at 23:59 Allergies: Coded Allergies: No Known Allergy (Unverified , 10/25/18) Past Surgical History Past Surgical Hx: other Social History Smoking Status: Never smoker Exam/Review of Systems Vital Signs Vitals Vital Signs Date Temp Pulse Resp B/P (MAP) Pulse Ox O2 O2 Flow FiO2 Time Delivery Rate 10/29/18 98.4 58 20 103/51 97 15:42 (68) 10/29/18 Nasal 2.0 27 13:58 Cannula Exam Exam General: no acute distress HEENT: NC/AT. pupils are equal. round. NECK: NO JVD. no stridor. CV: RRR. systolic murmur; no gallop or rubs. PULM: no wheezing or rhonchi. GI: SOFT, NT, ND, no rebound or guarding Extremity: trace B/L LE edema. no clubbing. neuro: awake and alert, OX3. Psych: calm and pleasant rectal: deferred Echocardiogram done March 05, 2019 showed ejection fraction about 50% LVH with diastolic dysfunction. The old chart from my office shows on February 2017 had a stress test showed ejection fraction of 46-60% with normal perfusion Labs Result Diagram: 10/28/18211810/28/182118 Results 24hrs Laboratory Tests Test 10/28/18 21:19 10/28/18 22:55 10/29/18 01:56 10/29/18 07:34 White Blood Count 13.8 #H Red Blood Count 3.51 L Hemoglobin 11.1 L Hematocrit 35.4 L Mean Corpuscular 100.9 Volume Mean Corpuscular 31.6 Hemoglobin Mean Corpuscular 31.4 L Hemoglobin Concent Red Cell 15.3 H Distribution Width Platelet Count 198 Mean Platelet Volume 9.9 Immature 0.600 H Granulocytes % Neutrophils % 80.6 H Lymphocytes % 4.8 L Monocytes % 12.9 H Eosinophils % 0.9 Basophils % 0.2 Nucleated Red Blood 0.0 Cells % Immature 0.080 H Granulocytes # Neutrophils # 11.1 H Lymphocytes # 0.7 L Monocytes # 1.8 H Eosinophils # 0.1 Basophils # 0.0 Nucleated Red Blood 0.0 Cells # Prothrombin Time 13.2 Prothrombin Time 1.0 Ratio INR International 0.99 Normalized Ratio Activated 34.6 Partial Thromboplast Time Sodium Level 135 Potassium Level 4.8 Chloride Level 97 Carbon Dioxide Level 22 Anion Gap 16 H Blood Urea Nitrogen 62 H Creatinine 9.44 H Est Glomerular 4 L Filtrat Rate mL/min Glucose Level 174 Lactic Acid Level 1.4 1.2 1.7 Calcium Level 9.6 Total Bilirubin 0.1 L Direct Bilirubin 0.00 Indirect Bilirubin 0.1 Aspartate Amino 26 Transf (AST/SGOT) Alanine < 6 L Aminotransferase (AL T/SGPT) Alkaline Phosphatase 138 H Troponin I 0.028 Total Protein 8.6 H Albumin 4.4 Globulin 4.20 H Albumin/Globulin 1.04 Ratio Bedside Glucose 122 Test 10/29/18 12:45 10/29/18 17:39 Bedside Glucose 146 110 Medications Medications Current Medications Insulin Aspart (Novolog Insulin Pen) NOVOLOG *MILD* ALGORITHM WITH MEALS BEDTIME SC Last administered on 10/29/18at 12:53; Admin Dose 1 UNIT; Start 10/29/18 at 08:00 Albuterol/ Ipratropium (Duoneb) 3 ml Q4H RESP THERAPY HHN Last administered on 10/29/18at 13:58; Admin Dose 3 ML; Start 10/29/18 at 09:00 Acetaminophen (Tylenol Tab) 650 mg Q6H PRN PO MILD PAIN(1-3)OR ELEVATED TEMP; Start 10/29/18 at 05:30 Ondansetron HCl (Zofran Inj) 4 mg Q4H PRN IV NAUSEA AND/OR VOMITING; Start 10/29/18 at 05:30 Cefepime HCl 50 ml @ 100 mls/hr DAILY IVPB Last administered on 10/29/18at 08:55; Admin Dose 100 MLS/HR; Start 10/29/18 at 09:00 Vancomycin HCl (Vanco Iv Per Pharmacy) VANCOMYCIN PER PHARMACY PER PROTOCOL XX ; Start 10/29/18 at 05:30 Benzonatate (Tessalon) 100 mg Q8H PRN PO COUGH; Start 10/29/18 at 12:30 Calcium Acetate (Phoslo) 1,334 mg WITH MEALS PO Last administered on 10/29/18at 17:41; Admin Dose 1,334 MG; Start 10/29/18 at 12:00 Linagliptin (Tradjenta) 5 mg DAILY PO Last administered on 10/29/18at 12:46; Admin Dose 5 MG; Start 10/29/18 at 12:00 Pantoprazole (Protonix Tab) 40 mg DAILY@0600 PO ; Start 10/30/18 at 06:00 Diagnostic Test (Pha) (Accu-Chek) 1 ea AC MEALS AND BEDTIME XX ; Start 10/29/18 at 17:30 Heparin Sodium (Porcine) (Heparin (1000 Units/ml)) 4,000 unit AFTER DIALYSIS CATHETER ; Start 10/29/18 at 12:00 Azithromycin (Zithromax) 250 mg DAILY PO ; Start 10/30/18 at 09:00; Stop 11/02/18 at 09:01 Oseltamivir Phosphate (Tamiflu) 30 mg AFTER DIALYSIS PO ; Start 10/29/18 at 12:30; Stop 11/02/18 at 23:59 YOSEPH PERDOMO MD Oct 29, 2018 18:00
[2018-10-30] VITALS (28 sets, daily range): BP systolic 105–132; BP diastolic 27–75; PULSE 59–115; RESP 18–20
[2018-10-30] MEDS: ALBUTEROL/IPRATROPIUM (NEB) 3 ML AMP HHN SCH ×6 (01:25→21:38)
[2018-10-30] MEDS: PANTOPRAZOLE (EC) 40 MG TAB PO SCH (05:25)
[2018-10-30] MEDS: ACCU-CHEK XX SCH ×4 (06:18→22:37)
[2018-10-30] MEDS: INSULIN ASPART [NOVOLOG] 3 ML PEN SC SCH ×4 (08:00→20:40)
[2018-10-30] MEDS: CALCIUM ACETATE 667 MG CAP PO SCH ×3 (08:13→17:31)
[2018-10-30] MEDS: LINAGLIPTIN 5 MG TABLET PO SCH (08:13)
[2018-10-30] MEDS: CEFEPIME 1GM/50 ML (PMX) 50 ML IVPB SCH (08:13)
[2018-10-30] MEDS: AZITHROMYCIN 250 MG TAB PO SCH (08:13)
--- NOTE | 2018-10-30 10:41 | CONS ---
Consult Date/Type/Reason Admit Date/Time Oct 28, 2018 at 23:43 Initial Consult Date 10/29/18 Type of Consultation: cv Requesting Provider: ELIANA NEELY MD Date/Time of Note DATE: 10/30/18 TIME: 10:39 Subjective Cardiology follow-up progress note Subjective: Case discussed with the staff. Telemetry was reviewed. Patient remains in ventricular paced rhythm No chest pain or pressure. She still has shortness of breath and cough but is slowly improving Objective: General: no acute distress HEENT: NC/AT. pupils are equal. round. NECK: NO JVD. no stridor. CV: RRR. systolic murmur; no gallop or rubs. PULM: no wheezing or rhonchi. GI: SOFT, NT, ND, no rebound or guarding Extremity: trace B/L LE edema. no clubbing. neuro: awake and alert, OX3. Psych: calm and pleasant rectal: deferred Echocardiogram done March 05, 2019 showed ejection fraction about 50% LVH with diastolic dysfunction. The old chart from my office shows on February 2017 had a stress test showed ejection fraction of 46-60% with normal perfusion CT of the chest 1. Dense consolidation in the right lower lobe and focal nodular consolidation in the posterior left upper lobe is most in keeping with multifocal pneumonia. Recommend clinical correlation and follow-up chest x-ray after therapy to document resolution. 2. Mixed cylindrical and varicose bronchiectasis in the right upper lobe and mild cylindrical bronchiectasis in the anterior left upper lobe with areas of m ucus plugging. 3. Trace right pleural effusion and mild bilateral dependent atelectasis. 4. Mild coronary artery calcification with a biventricular pacemaker and hemodialysis catheter. Enlarged main pulmonary artery in keeping with pulmonary hypertension. 5. Enlarged vessels in the right superior chest wall may be secondary evidence of occlusion of the right arm veins that cannot be directly evaluated without intravenous contrast. 6. Please note that in the absence of intravenous contrast, the study does not evaluate the patency of the vasculature. Objective Vitals Vital Signs Date Temp Pulse Resp B/P (MAP) Pulse Ox O2 O2 Flow FiO2 Time Delivery Rate 10/30/18 98 16 96 Nasal 2.0 28 09:55 Cannula 10/30/18 98.2 122/58 07:22 (79) Intake and Output 10/29/18 10/29/18 10/30/18 1515:00 23:00 07:00 IntakeIntake Total 50 ml 300 ml BalanceBalance 50 ml 300 ml Results/Medications Result Diagram: 10/30/1862010/30/18620 Results 24 hrs Laboratory Tests Test 10/29/18 12:45 10/29/18 17:39 10/29/18 20:07 10/30/18 06:21 Bedside Glucose 146 110 161 White Blood Count 10.8 # Red Blood Count 3.06 L Hemoglobin 9.5 L Hematocrit 30.0 L Mean Corpuscular 98.0 Volume Mean Corpuscular 31.0 Hemoglobin Mean Corpuscular 31.7 L Hemoglobin Concent Red Cell 15.0 H Distribution Width Platelet Count 199 Mean Platelet Volume 10.0 Immature 0.700 H Granulocytes % Neutrophils % 72.3 Lymphocytes % 9.0 L Monocytes % 15.9 H Eosinophils % 1.9 Basophils % 0.2 Nucleated Red Blood 0.0 Cells % Immature 0.080 H Granulocytes # Neutrophils # 7.8 H Lymphocytes # 1.0 Monocytes # 1.7 H Eosinophils # 0.2 Basophils # 0.0 Nucleated Red Blood 0.0 Cells # Sodium Level 135 Potassium Level 4.7 Chloride Level 98 Carbon Dioxide Level 21 Anion Gap 16 H Blood Urea Nitrogen 81 H Creatinine 11.81 #H Est Glomerular 3 L Filtrat Rate mL/min Glucose Level 115 # Calcium Level 8.9 Total Bilirubin 0.0 L Direct Bilirubin 0.00 Indirect Bilirubin 0.0 Aspartate Amino 21 Transf (AST/SGOT) Alanine 8 L Aminotransferase (AL T/SGPT) Alkaline Phosphatase 81 Total Protein 7.3 # Albumin 3.5 Globulin 3.80 H Albumin/Globulin 0.92 Ratio Test 10/30/18 07:52 Bedside Glucose 138 Home Meds Active Scripts Benzonatate* (Tessalon Perle*) 100 Mg Capsule, 100 MG PO Q8H PRN for COUGH, #30 CAP Prov:LIAN ROJAS MD 10/25/18 Reported Medications Hydralazine Hcl* (Hydralazine Hcl*) 25 Mg Tab, 75 MG PO TID, #90 TAB 10/12/18 Linagliptin (TRADJENTA) 5 Mg Tablet, 5 MG PO DAILY, TAB 10/12/18 Metoprolol Succinate* (Toprol XL*) 50 Mg Tab.er.24h, 50 MG PO DAILY, #30 TAB 10/12/18 Calcium Acetate* (Calcium Acetate*) 667 Mg Capsule, 1334 MG PO WITH MEALS, #60 CAP 10/12/18 Folic Acid* (Folic Acid*) 1 Mg Tablet, 1 MG PO DAILY, TAB 10/12/18 Docusate Sodium* (Colace*) 100 Mg Capsule, 100 MG PO DAILY, #30 CAP 10/12/18 Pantoprazole* (Protonix*) 40 Mg Tablet.dr, 40 MG PO DAILY, TAB 10/04/18 Cholecalciferol* (Vitamin D*) 400 Unit Tablet, 400 UNIT PO BID, TAB 10/04/18 Medications Current Medications Insulin Aspart (Novolog Insulin Pen) NOVOLOG *MILD* ALGORITHM WITH MEALS BEDTIME SC Last administered on 10/29/18at 12:53; Admin Dose 1 UNIT; Start 10/29/18 at 08:00 Albuterol/ Ipratropium (Duoneb) 3 ml Q4H RESP THERAPY HHN Last administered on 10/30/18at 09:50; Admin Dose 3 ML; Start 10/29/18 at 09:00 Acetaminophen (Tylenol Tab) 650 mg Q6H PRN PO MILD PAIN(1-3)OR ELEVATED TEMP; Start 10/29/18 at 05:30 Ondansetron HCl (Zofran Inj) 4 mg Q4H PRN IV NAUSEA AND/OR VOMITING; Start 10/29/18 at 05:30 Cefepime HCl 50 ml @ 100 mls/hr DAILY IVPB Last administered on 10/30/18at 08:13; Admin Dose 100 MLS/HR; Start 10/29/18 at 09:00 Vancomycin HCl (Vanco Iv Per Pharmacy) VANCOMYCIN PER PHARMACY PER PROTOCOL XX ; Start 10/29/18 at 05:30 Benzonatate (Tessalon) 100 mg Q8H PRN PO COUGH Last administered on 10/29/18at 20:08; Admin Dose 100 MG; Start 10/29/18 at 12:30 Calcium Acetate (Phoslo) 1,334 mg WITH MEALS PO Last administered on 10/30/18at 08:13; Admin Dose 1,334 MG; Start 10/29/18 at 12:00 Linagliptin (Tradjenta) 5 mg DAILY PO Last administered on 10/30/18at 08:13; Admin Dose 5 MG; Start 10/29/18 at 12:00 Pantoprazole (Protonix Tab) 40 mg DAILY@0600 PO Last administered on 10/30/18at 05:25; Admin Dose 40 MG; Start 10/30/18 at 06:00 Diagnostic Test (Pha) (Accu-Chek) 1 ea AC MEALS AND BEDTIME XX ; Start 10/29/18 at 17:30 Heparin Sodium (Porcine) (Heparin (1000 Units/ml)) 4,000 unit AFTER DIALYSIS CATHETER ; Start 10/29/18 at 12:00 Azithromycin (Zithromax) 250 mg DAILY PO Last administered on 10/30/18at 08:13; Admin Dose 250 MG; Start 10/30/18 at 09:00; Stop 11/02/18 at 09:01 Oseltamivir Phosphate (Tamiflu) 30 mg AFTER DIALYSIS PO ; Start 10/29/18 at 12:30; Stop 11/02/18 at 23:59 Assessment/Plan Hospital Course (Demo Recall) 1. Complete heart block status post MRI compatible permanent pacemaker 2. Fever cough with dense consolidation/pneumonia on the chest CT 3. Hypertension 4. Diabetes 5. End-stage renal disease hemodialysis Recommendation: Antibiotic management as per ID influenza nasal swab were negative Hemodialysis as per renal Continue home blood pressure medications Normal pacemaker function on telemetry. Thank you for his referral will continue to follow along with you YOSEPH CARCAMO MD [facility] YOSEPH CARCAMO MD Oct 30, 2018 10:41
--- NOTE | 2018-10-30 11:20 | CONS ---
Consult Date/Type/Reason Admit Date/Time Oct 28, 2018 at 23:43 Initial Consult Date 10/29/18 Type of Consult Pulmonary Requesting Provider: ELIANA NEELY MD Date/Time of Note DATE: 10/30/18 TIME: 11:17 Subjective Patient stable on nasal cannula this morning having hemodialysis. Objective Vital Signs Date Temp Pulse Resp B/P (MAP) Pulse Ox O2 O2 Flow FiO2 Time Delivery Rate 10/30/18 85 18 114/60 98 Nasal 2.0 11:08 (78) Cannula 10/30/18 28 09:55 10/30/18 98.2 07:22 Intake and Output 10/29/18 10/29/18 10/30/18 1515:00 23:00 07:00 IntakeIntake Total 50 ml 300 ml BalanceBalance 50 ml 300 ml Exam GENERAL: VITAL SIGNS: per chart NECK: Supple. No JVD or lymphadenopathy. CARDIAC EXAM: S1, S2. No added sounds or murmurs. CHEST: Diminished air entry bilaterally ABDOMEN: Soft, nontender. No guarding or rebound. EXTREMITIES: No cyanosis, clubbing or edema. NEUROLOGIC: Generalized weakness. No focal deficits. Well-nourished well- developed lady comfortable at rest no acute distress Vent Setting Fraction of Inspired Oxygen pe: 28 Results/Medications Result Diagram: 10/30/18 0621 10/30/18 0621 Results 24 hrs Laboratory Tests Test 10/29/18 12:45 10/29/18 17:39 10/29/18 20:07 10/30/18 06:21 Bedside Glucose 146 110 161 White Blood Count 10.8 # Red Blood Count 3.06 L Hemoglobin 9.5 L Hematocrit 30.0 L Mean Corpuscular 98.0 Volume Mean Corpuscular 31.0 Hemoglobin Mean Corpuscular 31.7 L Hemoglobin Concent Red Cell 15.0 H Distribution Width Platelet Count 199 Mean Platelet Volume 10.0 Immature 0.700 H Granulocytes % Neutrophils % 72.3 Lymphocytes % 9.0 L Monocytes % 15.9 H Eosinophils % 1.9 Basophils % 0.2 Nucleated Red Blood 0.0 Cells % Immature 0.080 H Granulocytes # Neutrophils # 7.8 H Lymphocytes # 1.0 Monocytes # 1.7 H Eosinophils # 0.2 Basophils # 0.0 Nucleated Red Blood 0.0 Cells # Sodium Level 135 Potassium Level 4.7 Chloride Level 98 Carbon Dioxide Level 21 Anion Gap 16 H Blood Urea Nitrogen 81 H Creatinine 11.81 #H Est Glomerular 3 L Filtrat Rate mL/min Glucose Level 115 # Calcium Level 8.9 Total Bilirubin 0.0 L Direct Bilirubin 0.00 Indirect Bilirubin 0.0 Aspartate Amino 21 Transf (AST/SGOT) Alanine 8 L Aminotransferase (AL T/SGPT) Alkaline Phosphatase 81 Total Protein 7.3 # Albumin 3.5 Globulin 3.80 H Albumin/Globulin 0.92 Ratio Test 10/30/18 07:52 Bedside Glucose 138 Medications Current Medications Insulin Aspart (Novolog Insulin Pen) NOVOLOG *MILD* ALGORITHM WITH MEALS BEDTIME SC Last administered on 10/29/18 12:53; Admin Dose 1 UNIT; Start 10/29/18 at 08:00 Albuterol/ Ipratropium (Duoneb) 3 ml Q4H RESP THERAPY HHN Last administered on 10/30/18 09:50; Admin Dose 3 ML; Start 10/29/18 at 09:00 Acetaminophen (Tylenol Tab) 650 mg Q6H PRN PO MILD PAIN(1-3)OR ELEVATED TEMP; Start 10/29/18 at 05:30 Ondansetron HCl (Zofran Inj) 4 mg Q4H PRN IV NAUSEA AND/OR VOMITING; Start 10/29/18 at 05:30 Cefepime HCl 50 ml @ 100 mls/hr DAILY IVPB Last administered on 10/30/18at 08:13; Admin Dose 100 MLS/HR; Start 10/29/18 at 09:00 Vancomycin HCl (Vanco Iv Per Pharmacy) VANCOMYCIN PER PHARMACY PER PROTOCOL XX ; Start 10/29/18 at 05:30 Benzonatate (Tessalon) 100 mg Q8H PRN PO COUGH Last administered on 10/29/18 20:08; Admin Dose 100 MG; Start 10/29/18 at 12:30 Calcium Acetate (Phoslo) 1,334 mg WITH MEALS PO Last administered on 10/30/18 08:13; Admin Dose 1,334 MG; Start 10/29/18 at 12:00 Linagliptin (Tradjenta) 5 mg DAILY PO Last administered on 10/30/18 08:13; Admin Dose 5 MG; Start 10/29/18 at 12:00 Pantoprazole (Protonix Tab) 40 mg DAILY@0600 PO Last administered on 10/30/18at 05:25; Admin Dose 40 MG; Start 10/30/18 at 06:00 Diagnostic Test (Pha) (Accu-Chek) 1 ea AC MEALS AND BEDTIME XX ; Start 10/29/18 at 17:30 Heparin Sodium (Porcine) (Heparin (1000 Units/ml)) 4,000 unit AFTER DIALYSIS CATHETER ; Start 10/29/18 at 12:00 Azithromycin (Zithromax) 250 mg DAILY PO Last administered on 10/30/18at 08:13; Admin Dose 250 MG; Start 10/30/18 at 09:00; Stop 11/02/18 at 09:01 Oseltamivir Phosphate (Tamiflu) 30 mg AFTER DIALYSIS PO ; Start 10/29/18 at 12:30; Stop 11/02/18 at 23:59 Assessment/Plan Hospital Course (Demo Recall) 1. Acute hypoxemic respiratory failure likely secondary to community-acquired pneumonia possible volume overload 2. End-stage renal failure on hemodialysis 3. History of essential hypertension 4. History of pacemaker placement Plan 1. Continue hemodialysis with volume removal 2. Aspiration precautions 3. Encourage out of bed as tolerated 4. Continue antibiotics and antivirals assessment. Check pro calcitonin level ALYSSA SERRANO MD, [facility] Oct 30, 2018 11:20
--- NOTE | 2018-10-30 11:37 | PN ---
Date/Time of Note Date/Time of Note DATE: 10/30/18 TIME: 11:34 Assessment/Plan VTE Prophylaxis Risk score (from Ns)>0 risk: 3 SCD applied (from [facility] [place] No SCD contraindicated: low risk/ambulating Pharmacological prophylaxis: NA/contraindicated Pharm contraindication: low risk/ambulating Lines/Catheters IV Catheter Type (from [place]): Saline Lock Urinary Cath still in place: No Assessment/Plan Hospital Course ASSESSMENT AND PLAN: This is a 68-year-old female who presented with: 1. Fevers, cough, shortness of breath. Lungs have few crackles on the right and wheezes, could be secondary to underlying pneumonia, early comunity pneumonia/also underlying bronchitis.cute community-acquired pneumonia with possibility of viral component as well. The patient does have slight interstitial pattern on chest x-ray as well. 2. Fevers. The patient had a recent Perm-A-Cath that was switched 1 month ago. Rule out also line sepsis. 3. End-stage renal disease on hemodialysis. 4. Hypertension. 5. Hyperlipidemia. 6. Atherosclerosis. 7. Diabetes. 8. History of ovarian tumor. Plan -Continue with vancomycin/cefepime/Tamiflu per pulmonary -Cultures pending -HD in progress, with HD Monday - cw trajendta - fu pulmonary/ID recs -GI/DVT prophylaxis Result Diagram: 10/30/1862010/30/18 0621 Results 24hrs Laboratory Tests Test 10/29/18 12:45 10/29/18 17:39 10/29/18 20:07 10/30/18 06:21 Bedside Glucose 146 110 161 White Blood Count 10.8 # Red Blood Count 3.06 L Hemoglobin 9.5 L Hematocrit 30.0 L Mean Corpuscular 98.0 Volume Mean Corpuscular 31.0 Hemoglobin Mean Corpuscular 31.7 L Hemoglobin Concent Red Cell 15.0 H Distribution Width Platelet Count 199 Mean Platelet Volume 10.0 Immature 0.700 H Granulocytes % Neutrophils % 72.3 Lymphocytes % 9.0 L Monocytes % 15.9 H Eosinophils % 1.9 Basophils % 0.2 Nucleated Red Blood 0.0 Cells % Immature 0.080 H Granulocytes # Neutrophils # 7.8 H Lymphocytes # 1.0 Monocytes # 1.7 H Eosinophils # 0.2 Basophils # 0.0 Nucleated Red Blood 0.0 Cells # Sodium Level 135 Potassium Level 4.7 Chloride Level 98 Carbon Dioxide Level 21 Anion Gap 16 H Blood Urea Nitrogen 81 H Creatinine 11.81 #H Est Glomerular 3 L Filtrat Rate mL/min Glucose Level 115 # Calcium Level 8.9 Total Bilirubin 0.0 L Direct Bilirubin 0.00 Indirect Bilirubin 0.0 Aspartate Amino 21 Transf (AST/SGOT) Alanine 8 L Aminotransferase (AL T/SGPT) Alkaline Phosphatase 81 Total Protein 7.3 # Albumin 3.5 Globulin 3.80 H Albumin/Globulin 0.92 Ratio Test 10/30/18 07:52 Bedside Glucose 138 Subjective 24 Hr Interval Summary Free Text/Dictation Patient feels a lot better today. HD in progress Exam/Review of Systems Exam Vitals Vital Signs Date Temp Pulse Resp B/P (MAP) Pulse Ox O2 O2 Flow FiO2 Time Delivery Rate 10/30/18 98.4 108 20 115/66 95 11:28 (82) 10/30/18 Nasal 2.0 11:08 Cannula 10/30/18 28 09:55 Intake and Output 10/29/18 10/29/18 10/30/18 1515:00 23:00 07:00 IntakeIntake Total 50 ml 300 ml BalanceBalance 50 ml 300 ml Exam GENERAL: The patient is awake, alert, oriented, does not appear in any acute distress. HEENT: Pupils equal, round, react to light. NECK: Supple, no JVD. HEART: Regular rate and rhythm. Patient has paced. LUNGS: Crackles heard on the right base and few wheezes heard on the left. ABDOMEN: Positive bowel sounds. EXTREMITIES: Trace edema. CHEST: The patient has a pacemaker in place and the left PermCath. The patient also has a right AV fistula which was placed new. Results Results 24hrs Laboratory Tests Test 10/29/18 12:45 10/29/18 17:39 10/29/18 20:07 10/30/18 06:21 Bedside Glucose 146 110 161 White Blood Count 10.8 # Red Blood Count 3.06 L Hemoglobin 9.5 L Hematocrit 30.0 L Mean Corpuscular 98.0 Volume Mean Corpuscular 31.0 Hemoglobin Mean Corpuscular 31.7 L Hemoglobin Concent Red Cell 15.0 H Distribution Width Platelet Count 199 Mean Platelet Volume 10.0 Immature 0.700 H Granulocytes % Neutrophils % 72.3 Lymphocytes % 9.0 L Monocytes % 15.9 H Eosinophils % 1.9 Basophils % 0.2 Nucleated Red Blood 0.0 Cells % Immature 0.080 H Granulocytes # Neutrophils # 7.8 H Lymphocytes # 1.0 Monocytes # 1.7 H Eosinophils # 0.2 Basophils # 0.0 Nucleated Red Blood 0.0 Cells # Sodium Level 135 Potassium Level 4.7 Chloride Level 98 Carbon Dioxide Level 21 Anion Gap 16 H Blood Urea Nitrogen 81 H Creatinine 11.81 #H Est Glomerular 3 L Filtrat Rate mL/min Glucose Level 115 # Calcium Level 8.9 Total Bilirubin 0.0 L Direct Bilirubin 0.00 Indirect Bilirubin 0.0 Aspartate Amino 21 Transf (AST/SGOT) Alanine 8 L Aminotransferase (AL T/SGPT) Alkaline Phosphatase 81 Total Protein 7.3 # Albumin 3.5 Globulin 3.80 H Albumin/Globulin 0.92 Ratio Test 10/30/18 07:52 Bedside Glucose 138 Medications Medication Current Medications Insulin Aspart (Novolog Insulin Pen) NOVOLOG *MILD* ALGORITHM WITH MEALS BEDTIME SC Last administered on 10/29/18at 12:53; Admin Dose 1 UNIT; Start 10/29/18 at 08:00 Albuterol/ Ipratropium (Duoneb) 3 ml Q4H RESP THERAPY HHN Last administered on 10/30/18at 09:50; Admin Dose 3 ML; Start 10/29/18 at 09:00 Acetaminophen (Tylenol Tab) 650 mg Q6H PRN PO MILD PAIN(1-3)OR ELEVATED TEMP; Start 10/29/18 at 05:30 Ondansetron HCl (Zofran Inj) 4 mg Q4H PRN IV NAUSEA AND/OR VOMITING; Start 10/29/18 at 05:30 Cefepime HCl 50 ml @ 100 mls/hr DAILY IVPB Last administered on 10/30/18at 08:13; Admin Dose 100 MLS/HR; Start 10/29/18 at 09:00 Vancomycin HCl (Vanco Iv Per Pharmacy) VANCOMYCIN PER PHARMACY PER PROTOCOL XX ; Start 10/29/18 at 05:30 Benzonatate (Tessalon) 100 mg Q8H PRN PO COUGH Last administered on 10/29/18at 20:08; Admin Dose 100 MG; Start 10/29/18 at 12:30 Calcium Acetate (Phoslo) 1,334 mg WITH MEALS PO Last administered on 10/30/18at 08:13; Admin Dose 1,334 MG; Start 10/29/18 at 12:00 Linagliptin (Tradjenta) 5 mg DAILY PO Last administered on 10/30/18at 08:13; Admin Dose 5 MG; Start 10/29/18 at 12:00 Pantoprazole (Protonix Tab) 40 mg DAILY@0600 PO Last administered on 10/30/18at 05:25; Admin Dose 40 MG; Start 10/30/18 at 06:00 Diagnostic Test (Pha) (Accu-Chek) 1 ea AC MEALS AND BEDTIME XX ; Start 10/29/18 at 17:30 Heparin Sodium (Porcine) (Heparin (1000 Units/ml)) 4,000 unit AFTER DIALYSIS CATHETER ; Start 10/29/18 at 12:00 Azithromycin (Zithromax) 250 mg DAILY PO Last administered on 10/30/18at 08:13; Admin Dose 250 MG; Start 10/30/18 at 09:00; Stop 11/02/18 at 09:01 Oseltamivir Phosphate (Tamiflu) 30 mg AFTER DIALYSIS PO ; Start 10/29/18 at 12:30; Stop 11/02/18 at 23:59 ELIANA NEELY MD Oct 30, 2018 11:37
[2018-10-30] MEDS ORDERED: HEPARIN 1000 UNITS/ML 10 ML INJ CATHETER SCH (13:30)
--- NOTE | 2018-10-30 15:24 | CONS ---
Assessment/Plan Assessment/Plan Hospital Course (Demo Recall) Patient is awake in no distress looks comfortable she is afebrile WBC today 10.8 platelets 199 neutrophils 72.3 Indwelling: Left chest permacath Microbiology: All cultures negative preliminary Antimicrobials: Cefepime vancomycin Diagnostics: CT of the chest revealed dense consolidation in the right lower lobe and focal nodular consolidation in posterior left upper lobe most keeping with multifocal pneumonia Physical examination: This is an obese well-developed elderly woman who is alert in no distress. Head atraumatic normocephalic. Neck is supple chest rise symmetrical breath sounds diminished bases. Heart: S1-S2. Abdomen soft bowel sounds present. Extremities with trace edema Assessment: 1. Sepsis, present on admission 2. Acute hypoxemic respiratory failure secondary to pneumonia 3. Coronary artery disease status post permanent pacemaker 4. End-stage renal disease 5. Hypertension 6. Morbid obesity Plan: Patient remains stable, on appropriate antibiotics Consultation Date/Type/Reason Admit Date/Time Oct 28, 2018 at 23:43 Initial Consult Date 10/29/18 Type of Consult id Requesting Provider: ELIANA NEELY MD Date/Time of Note DATE: 10/30/18 TIME: 15:24 Exam/Review of Systems Exam Vitals Vital Signs Date Temp Pulse Resp B/P (MAP) Pulse Ox O2 O2 Flow FiO2 Time Delivery Rate 10/30/18 104 13:55 10/30/18 98.4 20 115/66 95 11:28 (82) 10/30/18 Nasal 2.0 11:08 Cannula 10/30/18 28 09:55 Intake and Output 10/29/18 10/29/18 10/30/18 1515:00 23:00 07:00 IntakeIntake Total 50 ml 300 ml BalanceBalance 50 ml 300 ml Results Result Diagram: 10/30/1821 10/30/18 0621 Results 24hrs Laboratory Tests Test 10/29/18 17:39 10/29/18 20:07 10/30/18 06:21 10/30/18 07:52 Bedside Glucose 110 161 138 White Blood Count 10.8 # Red Blood Count 3.06 L Hemoglobin 9.5 L Hematocrit 30.0 L Mean Corpuscular 98.0 Volume Mean Corpuscular 31.0 Hemoglobin Mean Corpuscular 31.7 L Hemoglobin Concent Red Cell 15.0 H Distribution Width Platelet Count 199 Mean Platelet Volume 10.0 Immature 0.700 H Granulocytes % Neutrophils % 72.3 Lymphocytes % 9.0 L Monocytes % 15.9 H Eosinophils % 1.9 Basophils % 0.2 Nucleated Red Blood 0.0 Cells % Immature 0.080 H Granulocytes # Neutrophils # 7.8 H Lymphocytes # 1.0 Monocytes # 1.7 H Eosinophils # 0.2 Basophils # 0.0 Nucleated Red Blood 0.0 Cells # Sodium Level 135 Potassium Level 4.7 Chloride Level 98 Carbon Dioxide Level 21 Anion Gap 16 H Blood Urea Nitrogen 81 H Creatinine 11.81 #H Est Glomerular 3 L Filtrat Rate mL/min Glucose Level 115 # Calcium Level 8.9 Total Bilirubin 0.0 L Direct Bilirubin 0.00 Indirect Bilirubin 0.0 Aspartate Amino 21 Transf (AST/SGOT) Alanine 8 L Aminotransferase (AL T/SGPT) Alkaline Phosphatase 81 Total Protein 7.3 # Albumin 3.5 Globulin 3.80 H Albumin/Globulin 0.92 Ratio Hepatitis B Surface NEGATIVE Antigen Test 10/30/18 12:20 Bedside Glucose 96 Medications Medication Current Medications Insulin Aspart (Novolog Insulin Pen) NOVOLOG *MILD* ALGORITHM WITH MEALS BEDTIME SC Last administered on 10/29/18at 12:53; Admin Dose 1 UNIT; Start 10/29/18 at 08:00 Albuterol/ Ipratropium (Duoneb) 3 ml Q4H RESP THERAPY HHN Last administered on 10/30/18at 13:57; Admin Dose 3 ML; Start 10/29/18 at 09:00 Acetaminophen (Tylenol Tab) 650 mg Q6H PRN PO MILD PAIN(1-3)OR ELEVATED TEMP; Start 10/29/18 at 05:30 Ondansetron HCl (Zofran Inj) 4 mg Q4H PRN IV NAUSEA AND/OR VOMITING; Start 10/29/18 at 05:30 Cefepime HCl 50 ml @ 100 mls/hr DAILY IVPB Last administered on 10/30/18at 08:13; Admin Dose 100 MLS/HR; Start 10/29/18 at 09:00 Vancomycin HCl (Vanco Iv Per Pharmacy) VANCOMYCIN PER PHARMACY PER PROTOCOL XX ; Start 10/29/18 at 05:30 Benzonatate (Tessalon) 100 mg Q8H PRN PO COUGH Last administered on 10/29/18at 20:08; Admin Dose 100 MG; Start 10/29/18 at 12:30 Calcium Acetate (Phoslo) 1,334 mg WITH MEALS PO Last administered on 10/30/18at 08:13; Admin Dose 1,334 MG; Start 10/29/18 at 12:00 Linagliptin (Tradjenta) 5 mg DAILY PO Last administered on 10/30/18at 08:13; Admin Dose 5 MG; Start 10/29/18 at 12:00 Pantoprazole (Protonix Tab) 40 mg DAILY@0600 PO Last administered on 10/30/18at 05:25; Admin Dose 40 MG; Start 10/30/18 at 06:00 Diagnostic Test (Pha) (Accu-Chek) 1 ea AC MEALS AND BEDTIME XX ; Start 10/29/18 at 17:30 Azithromycin (Zithromax) 250 mg DAILY PO Last administered on 10/30/18at 08:13; Admin Dose 250 MG; Start 10/30/18 at 09:00; Stop 11/02/18 at 09:01 Oseltamivir Phosphate (Tamiflu) 30 mg AFTER DIALYSIS PO ; Start 10/29/18 at 12:30; Stop 11/02/18 at 23:59 Heparin Sodium (Porcine) (Heparin (5000 Units/1ml)) 5,000 unit BID SC ; Start 10/30/18 at 21:00 Heparin Sodium (Porcine) (Heparin (1000 Units/ml)) 4,500 unit AFTER DIALYSIS CATHETER Last administered on 10/30/18at 13:18; Admin Dose 4,500 UNIT; Start 10/30/18 at 13:30 Miscellaneous Information (*Rx Drug Level Order Reminder*) RANDOM VANCOMYCIN LEVEL 3... ONCE ONCE XX ; Start 10/31/18 at 05:00; Stop 10/31/18 at 05:01 ADEOLA BRYAN NP Oct 30, 2018 15:24
[2018-10-30] MEDS: HEPARIN 5,000 UNIT/1 ML VIAL SC SCH (20:49)
[2018-10-31] VITALS (9 sets, daily range): BP systolic 108–141; BP diastolic 55–67; PULSE 80–113; RESP 16–20
[2018-10-31] MEDS: ALBUTEROL/IPRATROPIUM (NEB) 3 ML AMP HHN SCH ×6 (01:19→20:59)
[2018-10-31] MEDS: PANTOPRAZOLE (EC) 40 MG TAB PO SCH (05:30)
[2018-10-31] MEDS: ACCU-CHEK XX SCH ×4 (07:00→20:44)
[2018-10-31] MEDS: INSULIN ASPART [NOVOLOG] 3 ML PEN SC SCH ×4 (08:00→20:42)
[2018-10-31] MEDS: CALCIUM ACETATE 667 MG CAP PO SCH ×3 (08:00→17:32)
--- NOTE | 2018-10-31 09:18 | CONS ---
Consult Date/Type/Reason Admit Date/Time Oct 28, 2018 at 23:43 Initial Consult Date 10/29/18 Type of Consultation: cv Requesting Provider: ELIANA NEELY MD Date/Time of Note DATE: 10/31/18 TIME: 09:16 Subjective Cardiology follow-up progress note Subjective: Case discussed with the staff. Telemetry was reviewed. Patient remains in ventricular paced rhythm No chest pain or pressure. She still has less shortness of breath and cough and feels better today Objective: General: no acute distress HEENT: NC/AT. pupils are equal. round. NECK: NO JVD. no stridor. CV: RRR. systolic murmur; no gallop or rubs. PULM: no wheezing or rhonchi. GI: SOFT, NT, ND, no rebound or guarding Extremity: trace B/L LE edema. no clubbing. neuro: awake and alert, OX3. Psych: calm and pleasant rectal: deferred Echocardiogram done March 05, 2019 showed ejection fraction about 50% LVH with diastolic dysfunction. The old chart from my office shows on February 2017 had a stress test showed ejection fraction of 46-60% with normal perfusion CT of the chest 1. Dense consolidation in the right lower lobe and focal nodular consolidation in the posterior left upper lobe is most in keeping with multifocal pneumonia. Recommend clinical correlation and follow-up chest x-ray after therapy to document resolution. 2. Mixed cylindrical and varicose bronchiectasis in the right upper lobe and mild cylindrical bronchiectasis in the anterior left upper lobe with areas of mucus plugging. 3. Trace right pleural effusion and mild bilateral dependent atelectasis. 4. Mild coronary artery calcification with a biventricular pacemaker and hemodialysis catheter. Enlarged main pulmonary artery in keeping with pulmonary hypertension. 5. Enlarged vessels in the right superior chest wall may be secondary evidence of occlusion of the right arm veins that cannot be directly evaluated without intravenous contrast. 6. Please note that in the absence of intravenous contrast, the study does not evaluate the patency of the vasculature. Objective Vitals Vital Signs Date Temp Pulse Resp B/P (MAP) Pulse Ox O2 O2 Flow FiO2 Time Delivery Rate 10/31/18 98.7 113 20 116/56 98 07:13 (76) 10/31/18 Nasal 2.0 28 04:56 Cannula Intake and Output 10/30/18 10/30/18 10/31/18 1515:00 23:00 07:00 IntakeIntake Total 50 ml 1200 ml 400 ml OutputOutput Total 2600 ml BalanceBalance -2550 ml 1200 ml 400 ml Results/Medications Result Diagram: 10/31/18 0502 10/31/18 0502 Results 24 hrs Laboratory Tests Test 10/30/18 12:20 10/30/18 17:30 10/30/18 20:39 10/31/18 05:02 Bedside Glucose 96 92 120 White Blood Count 7.5 # Red Blood Count 3.05 L Hemoglobin 9.5 L Hematocrit 30.9 L Mean Corpuscular 101.3 H Volume Mean Corpuscular 31.1 Hemoglobin Mean Corpuscular 30.7 L Hemoglobin Concent Red Cell 15.2 H Distribution Width Platelet Count 216 Mean Platelet Volume 10.2 Immature 0.800 H Granulocytes % Neutrophils % 64.5 Lymphocytes % 11.4 L Monocytes % 18.4 H Eosinophils % 4.5 Basophils % 0.4 Nucleated Red Blood 0.0 Cells % Immature 0.060 H Granulocytes # Neutrophils # 4.9 Lymphocytes # 0.9 Monocytes # 1.4 H Eosinophils # 0.3 Basophils # 0.0 Nucleated Red Blood 0.0 Cells # Sodium Level 137 Potassium Level 4.8 Chloride Level 97 Carbon Dioxide Level 27 Anion Gap 13 Blood Urea Nitrogen 48 #H Creatinine 8.84 #H Est Glomerular 4 L Filtrat Rate mL/min Glucose Level 116 Calcium Level 9.2 Phosphorus Level 4.3 Magnesium Level 2.2 Random Vancomycin 10.3 Level Test 10/31/18 08:05 Bedside Glucose 98 Home Meds Active Scripts Benzonatate* (Tessalon Perle*) 100 Mg Capsule, 100 MG PO Q8H PRN for COUGH, #30 CAP Prov:LIAN ROJAS MD 10/25/18 Reported Medications Hydralazine Hcl* (Hydralazine Hcl*) 25 Mg Tab, 75 MG PO TID, #90 TAB 10/12/18 Linagliptin (TRADJENTA) 5 Mg Tablet, 5 MG PO DAILY, TAB 10/12/18 Metoprolol Succinate* (Toprol XL*) 50 Mg Tab.er.24h, 50 MG PO DAILY, #30 TAB 10/12/18 Calcium Acetate* (Calcium Acetate*) 667 Mg Capsule, 1334 MG PO WITH MEALS, #60 CAP 10/12/18 Folic Acid* (Folic Acid*) 1 Mg Tablet, 1 MG PO DAILY, TAB 10/12/18 Docusate Sodium* (Colace*) 100 Mg Capsule, 100 MG PO DAILY, #30 CAP 10/12/18 Pantoprazole* (Protonix*) 40 Mg Tablet.dr, 40 MG PO DAILY, TAB 10/04/18 Cholecalciferol* (Vitamin D*) 400 Unit Tablet, 400 UNIT PO BID, TAB 10/04/18 Medications Current Medications Insulin Aspart (Novolog Insulin Pen) NOVOLOG *MILD* ALGORITHM WITH MEALS BEDTIME SC Last administered on 10/29/18at 12:53; Admin Dose 1 UNIT; Start 10/29/18 at 08:00 Albuterol/ Ipratropium (Duoneb) 3 ml Q4H RESP THERAPY HHN Last administered on 10/31/18at 04:55; Admin Dose 3 ML; Start 10/29/18 at 09:00 Acetaminophen (Tylenol Tab) 650 mg Q6H PRN PO MILD PAIN(1-3)OR ELEVATED TEMP; Start 10/29/18 at 05:30 Ondansetron HCl (Zofran Inj) 4 mg Q4H PRN IV NAUSEA AND/OR VOMITING; Start 10/29/18 at 05:30 Cefepime HCl 50 ml @ 100 mls/hr DAILY IVPB Last administered on 10/30/18at 08:13; Admin Dose 100 MLS/HR; Start 10/29/18 at 09:00 Vancomycin HCl (Vanco Iv Per Pharmacy) VANCOMYCIN PER PHARMACY PER PROTOCOL XX ; Start 10/29/18 at 05:30 Benzonatate (Tessalon) 100 mg Q8H PRN PO COUGH Last administered on 10/29/18at 20:08; Admin Dose 100 MG; Start 10/29/18 at 12:30 Calcium Acetate (Phoslo) 1,334 mg WITH MEALS PO Last administered on 10/30/18at 17:31; Admin Dose 1,334 MG; Start 10/29/18 at 12:00 Linagliptin (Tradjenta) 5 mg DAILY PO Last administered on 10/30/18at 08:13; Admin Dose 5 MG; Start 10/29/18 at 12:00 Pantoprazole (Protonix Tab) 40 mg DAILY@0600 PO Last administered on 10/31/18at 05:30; Admin Dose 40 MG; Start 10/30/18 at 06:00 Diagnostic Test (Pha) (Accu-Chek) 1 ea AC MEALS AND BEDTIME XX Last administer ed on 10/30/18at 22:37; Admin Dose 1 EA; Start 10/29/18 at 17:30 Azithromycin (Zithromax) 250 mg DAILY PO Last administered on 10/30/18 08:13; Admin Dose 250 MG; Start 10/30/18 at 09:00; Stop 11/02/18 at 09:01 Oseltamivir Phosphate (Tamiflu) 30 mg AFTER DIALYSIS PO ; Start 10/29/18 at 12:30; Stop 11/02/18 at 23:59 Heparin Sodium (Porcine) (Heparin (5000 Units/1ml)) 5,000 unit BID SC Last administered on 10/30/18at 20:49; Admin Dose 5,000 UNIT; Start 10/30/18 at 21:00 Heparin Sodium (Porcine) (Heparin (1000 Units/ml)) 4,500 unit AFTER DIALYSIS CATHETER Last administered on 10/30/18 13:18; Admin Dose 4,500 UNIT; Start 10/30/18 at 13:30 Assessment/Plan Hospital Course (Demo Recall) 1. Complete heart block status post MRI compatible permanent pacemaker 2. Fever cough with dense consolidation/pneumonia on the chest CT 3. Hypertension 4. Diabetes 5. End-stage renal disease hemodialysis Recommendation: Antibiotic management as per ID influenza nasal swab were negative Hemodialysis as per renal Continue home blood pressure medications Normal pacemaker function on telemetry. Thank you for his referral will continue to follow along with you YOSEPH CARCAMO MD [facility] YOSEPH CARCAMO MD Oct 31, 2018 09:18
[2018-10-31] MEDS: LINAGLIPTIN 5 MG TABLET PO SCH (10:20)
[2018-10-31] MEDS: AZITHROMYCIN 250 MG TAB PO SCH (10:20)
[2018-10-31] MEDS: CEFEPIME 1GM/50 ML (PMX) 50 ML IVPB SCH (10:21)
[2018-10-31] MEDS: HEPARIN 5,000 UNIT/1 ML VIAL SC SCH ×2 (10:24→20:43)
--- NOTE | 2018-10-31 10:32 | PN ---
Date/Time of Note Date/Time of Note DATE: 10/31/18 TIME: 10:29 Assessment/Plan VTE Prophylaxis Risk score (from [facility] [place])>0 risk: 4 SCD applied (from [facility] [place]): No SCD contraindicated: low risk/ambulating Pharmacological prophylaxis: NA/contraindicated Pharm contraindication: low risk/ambulating Lines/Catheters IV Catheter Type (from [facility]): Saline Lock Urinary Cath still in place: No Assessment/Plan Hospital Course ASSESSMENT AND PLAN: This is a 68-year-old female who presented with: 1. Fevers, cough, shortness of breath. Lungs have few crackles on the right and wheezes, could be secondary to underlying pneumonia,/also underlying bronchitis.cute community-acquired pneumonia with possibility of viral component as well. T of the chest is consistent with multifocal pneumonia dense on the right side patient also has underlying bronchiectasis 2. Fevers. The patient had a recent Perm-A-Cath that was switched 1 month ago. CX is a negative so far 3. End-stage renal disease on hemodialysis. Monday 4. Hypertension. 5. Hyperlipidemia. 6. Atherosclerosis. 7. Diabetes. 8. History of ovarian tumor. Plan -Continue with vancomycin/cefepime/Tamiflu per pulmonary -Cultures NEG so far - HD Monday - cw trajendta - fu pulmonary/ID recs -GI/DVT prophylaxis transfer to [facility] Result Diagram: 10/31/18 0502 10/31/18 0502 Results 24hrs Laboratory Tests Test 10/30/18 12:20 10/30/18 17:30 10/30/18 20:39 10/31/18 05:02 Bedside Glucose 96 92 120 White Blood Count 7.5 # Red Blood Count 3.05 L Hemoglobin 9.5 L Hematocrit 30.9 L Mean Corpuscular 101.3 H Volume Mean Corpuscular 31.1 Hemoglobin Mean Corpuscular 30.7 L Hemoglobin Concent Red Cell 15.2 H Distribution Width Platelet Count 216 Mean Platelet Volume 10.2 Immature 0.800 H Granulocytes % Neutrophils % 64.5 Lymphocytes % 11.4 L Monocytes % 18.4 H Eosinophils % 4.5 Basophils % 0.4 Nucleated Red Blood 0.0 Cells % Immature 0.060 H Granulocytes # Neutrophils # 4.9 Lymphocytes # 0.9 Monocytes # 1.4 H Eosinophils # 0.3 Basophils # 0.0 Nucleated Red Blood 0.0 Cells # Sodium Level 137 Potassium Level 4.8 Chloride Level 97 Carbon Dioxide Level 27 Anion Gap 13 Blood Urea Nitrogen 48 #H Creatinine 8.84 #H Est Glomerular 4 L Filtrat Rate mL/min Glucose Level 116 Calcium Level 9.2 Phosphorus Level 4.3 Magnesium Level 2.2 Random Vancomycin 10.3 Level Test 10/31/18 08:05 Bedside Glucose 98 Subjective 24 Hr Interval Summary Free Text/Dictation Patient patient is feeling much better today This post HD yesterday with removal of 2 L Exam/Review of Systems Exam Vitals Vital Signs Date Temp Pulse Resp B/P (MAP) Pulse Ox O2 O2 Flow FiO2 Time Delivery Rate 10/31/18 105 08:00 10/31/18 98.7 20 116/56 98 07:13 (76) 10/31/18 Nasal 2.0 28 04:56 Cannula Intake and Output 10/30/18 10/30/18 10/31/18 1515:00 23:00 07:00 IntakeIntake Total 50 ml 1200 ml 400 ml OutputOutput Total 2600 ml BalanceBalance -2550 ml 1200 ml 400 ml Exam Exam GENERAL: The patient is awake, alert, oriented, does not appear in any acute distress. HEENT: Pupils equal, round, react to light. NECK: Supple, no JVD. HEART: Regular rate and rhythm. Patient has paced. LUNGS: WHEEZES/Crackles heard on the right base and few wheezes heard on the left. ABDOMEN: Positive bowel sounds. EXTREMITIES: Trace edema. CHEST: The patient has a pacemaker in place and the left PermCath. The patient also has a right AV fistula which was placed new. Results Results 24hrs Laboratory Tests Test 10/30/18 12:20 10/30/18 17:30 10/30/18 20:39 10/31/18 05:02 Bedside Glucose 96 92 120 White Blood Count 7.5 # Red Blood Count 3.05 L Hemoglobin 9.5 L Hematocrit 30.9 L Mean Corpuscular 101.3 H Volume Mean Corpuscular 31.1 Hemoglobin Mean Corpuscular 30.7 L Hemoglobin Concent Red Cell 15.2 H Distribution Width Platelet Count 216 Mean Platelet Volume 10.2 Immature 0.800 H Granulocytes % Neutrophils % 64.5 Lymphocytes % 11.4 L Monocytes % 18.4 H Eosinophils % 4.5 Basophils % 0.4 Nucleated Red Blood 0.0 Cells % Immature 0.060 H Granulocytes # Neutrophils # 4.9 Lymphocytes # 0.9 Monocytes # 1.4 H Eosinophils # 0.3 Basophils # 0.0 Nucleated Red Blood 0.0 Cells # Sodium Level 137 Potassium Level 4.8 Chloride Level 97 Carbon Dioxide Level 27 Anion Gap 13 Blood Urea Nitrogen 48 #H Creatinine 8.84 #H Est Glomerular 4 L Filtrat Rate mL/min Glucose Level 116 Calcium Level 9.2 Phosphorus Level 4.3 Magnesium Level 2.2 Random Vancomycin 10.3 Level Test 10/31/18 08:05 Bedside Glucose 98 Medications Medication Current Medications Insulin Aspart (Novolog Insulin Pen) NOVOLOG *MILD* ALGORITHM WITH MEALS BEDTIME SC Last administered on 10/29/18 12:53; Admin Dose 1 UNIT; Start 10/29/18 at 08:00 Albuterol/ Ipratropium (Duoneb) 3 ml Q4H RESP THERAPY HHN Last administered on 10/31/18 09:48; Admin Dose 3 ML; Start 10/29/18 at 09:00 Acetaminophen (Tylenol Tab) 650 mg Q6H PRN PO MILD PAIN(1-3)OR ELEVATED TEMP; Start 10/29/18 at 05:30 Ondansetron HCl (Zofran Inj) 4 mg Q4H PRN IV NAUSEA AND/OR VOMITING; Start 10/29/18 at 05:30 Cefepime HCl 50 ml @ 100 mls/hr DAILY IVPB Last administered on 10/31/18 10:21; Admin Dose 100 MLS/HR; Start 10/29/18 at 09:00 Vancomycin HCl (Vanco Iv Per Pharmacy) VANCOMYCIN PER PHARMACY PER PROTOCOL XX ; Start 10/29/18 at 05:30 Benzonatate (Tessalon) 100 mg Q8H PRN PO COUGH Last administered on 10/29/18 20:08; Admin Dose 100 MG; Start 10/29/18 at 12:30 Calcium Acetate (Phoslo) 1,334 mg WITH MEALS PO Last administered on 10/30/18 17:31; Admin Dose 1,334 MG; Start 10/29/18 at 12:00 Linagliptin (Tradjenta) 5 mg DAILY PO Last administered on 3/27/19at 10:20; Admin Dose 5 MG; Start 10/29/18 at 12:00 Pantoprazole (Protonix Tab) 40 mg DAILY@0600 PO Last administered on 10/31/18at 05:30; Admin Dose 40 MG; Start 10/30/18 at 06:00 Diagnostic Test (Pha) (Accu-Chek) 1 ea AC MEALS AND BEDTIME XX Last administered on 10/30/18at 22:37; Admin Dose 1 EA; Start 10/29/18 at 17:30 Azithromycin (Zithromax) 250 mg DAILY PO Last administered on 10/31/18at 10:20; Admin Dose 250 MG; Start 10/30/18 at 09:00; Stop 11/02/18 at 09:01 Oseltamivir Phosphate (Tamiflu) 30 mg AFTER DIALYSIS PO ; Start 10/29/18 at 12:30; Stop 11/02/18 at 23:59 Heparin Sodium (Porcine) (Heparin (5000 Units/1ml)) 5,000 unit BID SC Last administered on 10/31/18at 10:24; Admin Dose 5,000 UNIT; Start 10/30/18 at 21:00 Heparin Sodium (Porcine) (Heparin (1000 Units/ml)) 4,500 unit AFTER DIALYSIS CATHETER Last administered on 10/30/18at 13:18; Admin Dose 4,500 UNIT; Start 10/30/18 at 13:30 ELIANA NEELY MD Oct 31, 2018 10:32
[2018-10-31] MEDS ORDERED: HEPARIN 1000 UNITS/ML 10 ML INJ CATHETER SCH (11:00)
--- NOTE | 2018-10-31 12:00 | CONS ---
Consult Date/Type/Reason Admit Date/Time Oct 28, 2018 at 23:43 Initial Consult Date 10/29/18 Type of Consult Pulmonary Requesting Provider: ELIANA NEELY MD Date/Time of Note DATE: 10/31/18 TIME: 11:59 Subjective Out of bed. No respiratory distress. Objective Vital Signs Date Temp Pulse Resp B/P (MAP) Pulse Ox O2 O2 Flow FiO2 Time Delivery Rate 10/31/18 98.3 107 20 114/59 99 11:04 (77) 10/31/18 Nasal 2.0 28 04:56 Cannula Intake and Output 10/30/18 10/30/18 10/31/18 1515:00 23:00 07:00 IntakeIntake Total 50 ml 1200 ml 400 ml OutputOutput Total 2600 ml BalanceBalance -2550 ml 1200 ml 400 ml Exam GENERAL: VITAL SIGNS: per chart NECK: Supple. No JVD or lymphadenopathy. CARDIAC EXAM: S1, S2. No added sounds or murmurs. CHEST: Diminished air entry bilaterally ABDOMEN: Soft, nontender. No guarding or rebound. EXTREMITIES: No cyanosis, clubbing or edema. NEUROLOGIC: Generalized weakness. No focal deficits. Well-nourished well-developed lady comfortable at rest no acute distress Vent Setting Fraction of Inspired Oxygen pe: 28 Results/Medications Result Diagram: 10/31/18 0502 10/31/18 0502 Results 24 hrs Laboratory Tests Test 10/30/18 12:20 10/30/18 17:30 10/30/18 20:39 10/31/18 05:02 Bedside Glucose 96 92 120 White Blood Count 7.5 # Red Blood Count 3.05 L Hemoglobin 9.5 L Hematocrit 30.9 L Mean Corpuscular 101.3 H Volume Mean Corpuscular 31.1 Hemoglobin Mean Corpuscular 30.7 L Hemoglobin Concent Red Cell 15.2 H Distribution Width Platelet Count 216 Mean Platelet Volume 10.2 Immature 0.800 H Granulocytes % Neutrophils % 64.5 Lymphocytes % 11.4 L Monocytes % 18.4 H Eosinophils % 4.5 Basophils % 0.4 Nucleated Red Blood 0.0 Cells % Immature 0.060 H Granulocytes # Neutrophils # 4.9 Lymphocytes # 0.9 Monocytes # 1.4 H Eosinophils # 0.3 Basophils # 0.0 Nucleated Red Blood 0.0 Cells # Sodium Level 137 Potassium Level 4.8 Chloride Level 97 Carbon Dioxide Level 27 Anion Gap 13 Blood Urea Nitrogen 48 #H Creatinine 8.84 #H Est Glomerular 4 L Filtrat Rate mL/min Glucose Level 116 Calcium Level 9.2 Phosphorus Level 4.3 Magnesium Level 2.2 Random Vancomycin 10.3 Level Test 10/31/18 08:05 10/31/18 11:51 Bedside Glucose 98 103 Medications Current Medications Insulin Aspart (Novolog Insulin Pen) NOVOLOG *MILD* ALGORITHM WITH MEALS BEDTIME SC Last administered on 10/29/18 12:53; Admin Dose 1 UNIT; Start 10/29/18 at 08:00 Albuterol/ Ipratropium (Duoneb) 3 ml Q4H RESP THERAPY HHN Last administered on 10/31/18 09:48; Admin Dose 3 ML; Start 10/29/18 at 09:00 Acetaminophen (Tylenol Tab) 650 mg Q6H PRN PO MILD PAIN(1-3)OR ELEVATED TEMP; Start 10/29/18 at 05:30 Ondansetron HCl (Zofran Inj) 4 mg Q4H PRN IV NAUSEA AND/OR VOMITING; Start 10/29/18 at 05:30 Cefepime HCl 50 ml @ 100 mls/hr DAILY IVPB Last administered on 10/31/18 10:21; Admin Dose 100 MLS/HR; Start 10/29/18 at 09:00 Vancomycin HCl (Vanco Iv Per Pharmacy) VANCOMYCIN PER PHARMACY PER PROTOCOL XX ; Start 10/29/18 at 05:30 Benzonatate (Tessalon) 100 mg Q8H PRN PO COUGH Last administered on 10/29/18 20:08; Admin Dose 100 MG; Start 10/29/18 at 12:30 Calcium Acetate (Phoslo) 1,334 mg WITH MEALS PO Last administered on 10/31/18 11:53; Admin Dose 1,334 MG; Start 10/29/18 at 12:00 Linagliptin (Tradjenta) 5 mg DAILY PO Last administered on 10/31/18 10:20; Admin Dose 5 MG; Start 10/29/18 at 12:00 Pantoprazole (Protonix Tab) 40 mg DAILY@0600 PO Last administered on 10/31/18 05:30; Admin Dose 40 MG; Start 10/30/18 at 06:00 Diagnostic Test (Pha) (Accu-Chek) 1 ea AC MEALS AND BEDTIME XX Last administered on 10/31/18at 11:53; Admin Dose 1 EA; Start 10/29/18 at 17:30 Azithromycin (Zithromax) 250 mg DAILY PO Last administered on 10/31/18at 10:20; Admin Dose 250 MG; Start 10/30/18 at 09:00; Stop 11/02/18 at 09:01 Oseltamivir Phosphate (Tamiflu) 30 mg AFTER DIALYSIS PO ; Start 10/29/18 at 12:30; Stop 11/02/18 at 23:59 Heparin Sodium (Porcine) (Heparin (5000 Units/1ml)) 5,000 unit BID SC Last administered on 10/31/18at 10:24; Admin Dose 5,000 UNIT; Start 10/30/18 at 21:00 Heparin Sodium (Porcine) (Heparin (1000 Units/ml)) 4,500 unit AFTER DIALYSIS CATHETER Last administered on 10/30/18at 13:18; Admin Dose 4,500 UNIT; Start at 13:30 Heparin Sodium (Porcine) (Heparin (1000 Units/ml)) 4,000 unit AFTER DIALYSIS CATHETER ; Start 10/31/18 at 11:00; Stop 10/31/18 at 23:59 Assessment/Plan Hospital Course (Demo Recall) 1. Acute hypoxemic respiratory failure likely secondary to community-acquired pneumonia possible volume overload 2. End-stage renal failure on hemodialysis 3. History of essential hypertension 4. History of pacemaker placement Plan 1. Continue hemodialysis with volume removal 2. Aspiration precautions 3. Encourage out of bed as tolerated 4. Consider de-escalation of antibiotics Discharge planning okay from pulmonary standpoint Continue outpatient hemodialysis schedule ALYSSA SERRANO MD, [facility] Oct 31, 2018 12:00
[2018-10-31] MEDS ORDERED: VANCOMYCIN 1 GM 250 ML IVPB SCH (14:00)
--- NOTE | 2018-10-31 14:58 | CONS ---
Assessment/Plan Assessment/Plan Hospital Course (Demo Recall) Patient is sleeping, looks comfortable, no events per report at bedside, she had been afebrile no shortness of breath at rest. Chest x-ray this morning revealed a right basilar infiltrate unchanged WBC today 7.5 platelets 260 neutrophils 64.5 Indwelling: Left chest permacath Microbiology: All cultures negative preliminary Antimicrobials: Cefepime vancomycin, Zithromax Diagnostics: CT of the chest revealed dense consolidation in the right lower lobe and focal nodular consolidation in posterior left upper lobe most keeping with multifocal pneumonia Physical examination: This is an obese well-developed elderly woman who is alert in no distress. Head atraumatic normocephalic. Neck is supple chest rise symmetrical breath sounds diminished bases. Heart: S1-S2. Abdomen soft bowel sounds present. Extremities with trace edema Assessment: 1. Status post sepsis, present on admission 2. Acute hypoxemic respiratory failure secondary to pneumonia 3. Coronary artery disease status post permanent pacemaker 4. End-stage renal disease 5. Hypertension 6. Morbid obesity Plan: Patient remains stable, DC vancomycin continue other antibiotics Consultation Date/Type/Reason Admit Date/Time Oct 28, 2018 at 23:43 Initial Consult Date 10/29/18 Type of Consult id Requesting Provider: ELIANA NEELY MD Date/Time of Note DATE: 10/31/18 TIME: 14:57 Exam/Review of Systems Exam Vitals Vital Signs Date Temp Pulse Resp B/P (MAP) Pulse Ox O2 O2 Flow FiO2 Time Delivery Rate 10/31/18 108 12:00 10/31/18 98.3 20 114/59 99 11:04 (77) 10/31/18 Nasal 2.0 08:30 Cannula 10/31/18 28 04:56 Intake and Output 10/30/18 10/30/18 10/31/18 1515:00 23:00 07:00 IntakeIntake Total 50 ml 1200 ml 400 ml OutputOutput Total 2600 ml BalanceBalance -2550 ml 1200 ml 400 ml Results Result Diagram: 10/31/18 0502 10/31/18 0502 Results 24hrs Laboratory Tests Test 10/30/18 17:30 10/30/18 20:39 10/31/18 05:02 10/31/18 08:05 Bedside Glucose 92 120 98 White Blood Count 7.5 # Red Blood Count 3.05 L Hemoglobin 9.5 L Hematocrit 30.9 L Mean Corpuscular 101.3 H Volume Mean Corpuscular 31.1 Hemoglobin Mean Corpuscular 30.7 L Hemoglobin Concent Red Cell 15.2 H Distribution Width Platelet Count 216 Mean Platelet Volume 10.2 Immature 0.800 H Granulocytes % Neutrophils % 64.5 Lymphocytes % 11.4 L Monocytes % 18.4 H Eosinophils % 4.5 Basophils % 0.4 Nucleated Red Blood 0.0 Cells % Immature 0.060 H Granulocytes # Neutrophils # 4.9 Lymphocytes # 0.9 Monocytes # 1.4 H Eosinophils # 0.3 Basophils # 0.0 Nucleated Red Blood 0.0 Cells # Sodium Level 137 Potassium Level 4.8 Chloride Level 97 Carbon Dioxide Level 27 Anion Gap 13 Blood Urea Nitrogen 48 #H Creatinine 8.84 #H Est Glomerular 4 L Filtrat Rate mL/min Glucose Level 116 Calcium Level 9.2 Phosphorus Level 4.3 Magnesium Level 2.2 Random Vancomycin 10.3 Level Test 10/31/18 11:51 Bedside Glucose 103 Medications Medication Current Medications Insulin Aspart (Novolog Insulin Pen) NOVOLOG *MILD* ALGORITHM WITH MEALS BEDTIME SC Last administered on 10/29/18at 12:53; Admin Dose 1 UNIT; Start 10/29/18 at 08:00 Albuterol/ Ipratropium (Duoneb) 3 ml Q4H RESP THERAPY HHN Last administered on 10/31/18at 13:42; Admin Dose 3 ML; Start 10/29/18 at 09:00 Acetaminophen (Tylenol Tab) 650 mg Q6H PRN PO MILD PAIN(1-3)OR ELEVATED TEMP; Start 10/29/18 at 05:30 Ondansetron HCl (Zofran Inj) 4 mg Q4H PRN IV NAUSEA AND/OR VOMITING; Start 10/29/18 at 05:30 Cefepime HCl 50 ml @ 100 mls/hr DAILY IVPB Last administered on 10/31/18 10:21; Admin Dose 100 MLS/HR; Start 10/29/18 at 09:00 Vancomycin HCl (Vanco Iv Per Pharmacy) VANCOMYCIN PER PHARMACY PER PROTOCOL XX ; Start 10/29/18 at 05:30 Benzonatate (Tessalon) 100 mg Q8H PRN PO COUGH Last administered on 10/29/18at 20:08; Admin Dose 100 MG; Start 10/29/18 at 12:30 Calcium Acetate (Phoslo) 1,334 mg WITH MEALS PO Last administered on 10/31/18 11:53; Admin Dose 1,334 MG; Start 10/29/18 at 12:00 Linagliptin (Tradjenta) 5 mg DAILY PO Last administered on 10/31/18 10:20; Admin Dose 5 MG; Start 10/29/18 at 12:00 Pantoprazole (Protonix Tab) 40 mg DAILY@0600 PO Last administered on 10/31/18at 05:30; Admin Dose 40 MG; Start 10/30/18 at 06:00 Diagnostic Test (Pha) (Accu-Chek) 1 ea AC MEALS AND BEDTIME XX Last administered on 10/31/18 11:53; Admin Dose 1 EA; Start 10/29/18 at 17:30 Azithromycin (Zithromax) 250 mg DAILY PO Last administered on 10/31/18 10:20; Admin Dose 250 MG; Start 10/30/18 at 09:00; Stop 11/02/18 at 09:01 Oseltamivir Phosphate (Tamiflu) 30 mg AFTER DIALYSIS PO ; Start 10/29/18 at 12:30; Stop 11/02/18 at 23:59 Heparin Sodium (Porcine) (Heparin (5000 Units/1ml)) 5,000 unit BID SC Last administered on 10/31/18at 10:24; Admin Dose 5,000 UNIT; Start 10/30/18 at 21:00 Heparin Sodium (Porcine) (Heparin (1000 Units/ml)) 4,500 unit AFTER DIALYSIS CATHETER Last administered on 10/30/18at 13:18; Admin Dose 4,500 UNIT; Start 10/30/18 at 13:30 Heparin Sodium (Porcine) (Heparin (1000 Units/ml)) 4,000 unit AFTER DIALYSIS CATHETER ; Start 10/31/18 at 11:00; Stop 10/31/18 at 23:59 Vancomycin HCl 250 ml @ 125 mls/hr ONCE IVPB ; Start 10/31/18 at 14:00; Stop 10/31/18 at 23:59 ADEOLA BRYAN NP Oct 31, 2018 14:58
[2018-11-01] VITALS (20 sets, daily range): BP systolic 108–152; BP diastolic 54–75; PULSE 78–103; RESP 16–20
[2018-11-01] MEDS: ALBUTEROL/IPRATROPIUM (NEB) 3 ML AMP HHN SCH ×6 (00:31→20:18)
[2018-11-01] MEDS: PANTOPRAZOLE (EC) 40 MG TAB PO SCH (05:58)
[2018-11-01] MEDS: ACCU-CHEK XX SCH ×4 (07:30→21:00)
[2018-11-01] MEDS: CALCIUM ACETATE 667 MG CAP PO SCH ×3 (07:35→17:36)
[2018-11-01] MEDS: INSULIN ASPART [NOVOLOG] 3 ML PEN SC SCH ×4 (08:00→21:00)
[2018-11-01] MEDS: HEPARIN 5,000 UNIT/1 ML VIAL SC SCH ×2 (08:38→21:08)
--- NOTE | 2018-11-01 09:12 | CONS ---
Consult Date/Type/Reason Admit Date/Time Oct 28, 2018 at 23:43 Initial Consult Date 10/29/18 Type of Consultation: cv Requesting Provider: ELIANA NEELY MD Date/Time of Note DATE: 11/01/18 TIME: 09:09 Subjective Cardiology follow-up progress note Subjective: Case discussed with the staff. dW pt is off tele now No chest pain or pressure. She has less shortness of breath and cough and feels better today Objective: General: no acute distress HEENT: NC/AT. pupils are equal. round. NECK: NO JVD. no stridor. chest: s/p L HD access. s/p PPM CV: RRR. systolic murmur; no gallop or rubs. PULM: no wheezing or rhonchi. GI: SOFT, NT, ND, no rebound or guarding Extremity: trace B/L LE edema. no clubbing. neuro: awake and alert, OX3. Psych: calm and pleasant rectal: deferred Echocardiogram done March 05, 2019 showed ejection fraction about 50% LVH with diastolic dysfunction. The old chart from my office shows on February 2017 had a stress test showed ejection fraction of 46-60% with normal perfusion CT of the chest 1. Dense consolidation in the right lower lobe and focal nodular consolidation in the posterior left upper lobe is most in keeping with multifocal pneumonia. Recommend clinical correlation and follow-up chest x-ray after therapy to document resolution. 2. Mixed cylindrical and varicose bronchiectasis in the right upper lobe and mild cylindrical bronchiectasis in the anterior left upper lobe with areas of mucus plugging. 3. Trace right pleural effusion and mild bilateral dependent atelectasis. 4. Mild coronary artery calcification with a biventricular pacemaker and hemodialysis catheter. Enlarged main pulmonary artery in keeping with pulmonary hypertension. 5. Enlarged vessels in the right superior chest wall may be secondary evidence of occlusion of the right arm veins that cannot be directly evaluated without intravenous contrast. 6. Please note that in the absence of intravenous contrast, the study does not evaluate the patency of the vasculature. Objective Vitals Vital Signs Date Temp Pulse Resp B/P (MAP) Pulse Ox O2 O2 Flow FiO2 Time Delivery Rate 11/01/18 98.3 81 18 125/64 98 Nasal 07:52 (84) Cannula 11/01/18 2.0 04:48 10/31/18 04:56 Intake and Output 10/31/18 10/31/18 11/01/18 1515:00 23:00 07:00 IntakeIntake Total 50 ml 240 ml BalanceBalance 50 ml 240 ml Results/Medications Result Diagram: 10/31/18 0502 10/31/18 0502 Results 24 hrs Laboratory Tests Test 10/31/18 11:51 10/31/18 17:26 10/31/18 20:41 11/01/18 08:02 Bedside Glucose 103 104 149 100 Home Meds Active Scripts Benzonatate* (Tessalon Perle*) 100 Mg Capsule, 100 MG PO Q8H PRN for COUGH, #30 CAP Prov:LIAN ROJAS MD 10/25/18 Reported Medications Hydralazine Hcl* (Hydralazine Hcl*) 25 Mg Tab, 75 MG PO TID, #90 TAB 10/12/18 Linagliptin (TRADJENTA) 5 Mg Tablet, 5 MG PO DAILY, TAB 10/12/18 Metoprolol Succinate* (Toprol XL*) 50 Mg Tab.er.24h, 50 MG PO DAILY, #30 TAB 10/12/18 Calcium Acetate* (Calcium Acetate*) 667 Mg Capsule, 1334 MG PO WITH MEALS, #60 CAP 10/12/18 Folic Acid* (Folic Acid*) 1 Mg Tablet, 1 MG PO DAILY, TAB 10/12/18 Docusate Sodium* (Colace*) 100 Mg Capsule, 100 MG PO DAILY, #30 CAP 10/12/18 Pantoprazole* (Protonix*) 40 Mg Tablet.dr, 40 MG PO DAILY, TAB 10/04/18 Cholecalciferol* (Vitamin D*) 400 Unit Tablet, 400 UNIT PO BID, TAB 10/04/18 Medications Current Medications Insulin Aspart (Novolog Insulin Pen) NOVOLOG *MILD* ALGORITHM WITH MEALS BEDTIME SC Last administered on 10/29/18at 12:53; Admin Dose 1 UNIT; Start 10/29/18 at 08:00 Albuterol/ Ipratropium (Duoneb) 3 ml Q4H RESP THERAPY HHN Last administered on 11/01/18at 04:48; Admin Dose 3 ML; Start 10/29/18 at 09:00 Acetaminophen (Tylenol Tab) 650 mg Q6H PRN PO MILD PAIN(1-3)OR ELEVATED TEMP; Start 10/29/18 at 05:30 Ondansetron HCl (Zofran Inj) 4 mg Q4H PRN IV NAUSEA AND/OR VOMITING; Start 10/29/18 at 05:30 Cefepime HCl 50 ml @ 100 mls/hr DAILY IVPB Last administered on 10/31/18 10:21; Admin Dose 100 MLS/HR; Start 10/29/18 at 09:00 Benzonatate (Tessalon) 100 mg Q8H PRN PO COUGH Last administered on 10/29/18 20:08; Admin Dose 100 MG; Start 10/29/18 at 12:30 Calcium Acetate (Phoslo) 1,334 mg WITH MEALS PO Last administered on 10/31/18 17:32; Admin Dose 1,334 MG; Start 10/29/18 at 12:00 Linagliptin (Tradjenta) 5 mg DAILY PO Last administered on 10/31/18 10:20; Admin Dose 5 MG; Start 10/29/18 at 12:00 Pantoprazole (Protonix Tab) 40 mg DAILY@0600 PO Last administered on 11/01/18 05:58; Admin Dose 40 MG; Start 10/30/18 at 06:00 Diagnostic Test (Pha) (Accu-Chek) 1 ea AC MEALS AND BEDTIME XX Last admi nistered on 11/01/18 07:30; Admin Dose 1 EA; Start 10/29/18 at 17:30 Azithromycin (Zithromax) 250 mg DAILY PO Last administered on 10/31/18 10:20; Admin Dose 250 MG; Start 10/30/18 at 09:00; Stop 11/02/18 at 09:01 Oseltamivir Phosphate (Tamiflu) 30 mg AFTER DIALYSIS PO ; Start 10/29/18 at 12:30; Stop 11/02/18 at 23:59 Heparin Sodium (Porcine) (Heparin (5000 Units/1ml)) 5,000 unit BID SC Last administered on 10/31/18 20:43; Admin Dose 5,000 UNIT; Start 10/30/18 at 21:00 Heparin Sodium (Porcine) (Heparin (1000 Units/ml)) 4,500 unit AFTER DIALYSIS CATHETER Last administered on 10/30/18 13:18; Admin Dose 4,500 UNIT; Start 10/30/18 at 13:30 Assessment/Plan Hospital Course (Demo Recall) 1. Complete heart block status post MRI compatible permanent pacemaker 2. Fever cough with dense consolidation/pneumonia on the chest CT 3. Hypertension 4. Diabetes 5. End-stage renal disease hemodialysis Recommendation: Antibiotic management as per ID influenza nasal swab were negative Hemodialysis as per renal Continue home blood pressure medications Thank you for his referral will continue to follow along with you YOSEPH CARCAMO MD [facility] YOSEPH CARCAMO MD Nov 01, 2018 09:12
[2018-11-01] MEDS: CEFEPIME 1GM/50 ML (PMX) 50 ML IVPB SCH (11:49)
[2018-11-01] MEDS: AZITHROMYCIN 250 MG TAB PO SCH (11:49)
[2018-11-01] MEDS: LINAGLIPTIN 5 MG TABLET PO SCH (11:50)
--- NOTE | 2018-11-01 12:19 | CONS ---
Assessment/Plan Assessment/Plan Hospital Course (Demo Recall) No events, looks comfortable, no fevers Indwelling: Left chest permacath Microbiology: sputum cx + PSA Antimicrobials: Cefepime Zithromax Diagnostics: CT of the chest revealed dense consolidation in the right lower lobe and focal nodular consolidation in posterior left upper lobe most keeping with multifocal pneumonia Physical examination: This is an obese well-developed elderly woman who is alert in no distress. Head atraumatic normocephalic. Neck is supple chest rise symmetrical breath sounds diminished bases. Heart: S1-S2. Abdomen soft bowel sounds present. Extremities with trace edema Assessment: 1. Status post sepsis, present on admission 2. Acute hypoxemic respiratory failure secondary to pneumonia 3. Coronary artery disease status post permanent pacemaker 4. End-stage renal disease 5. Hypertension 6. Morbid obesity Plan: Patient remains stable, change abx to Gentamicin and po Levaquin to continue 7 more days Consultation Date/Type/Reason Admit Date/Time Oct 28, 2018 at 23:43 Initial Consult Date 10/29/18 Type of Consult id Requesting Provider: ELIANA NEELY MD Date/Time of Note DATE: 11/01/18 TIME: 12:18 Exam/Review of Systems Exam Vitals Vital Signs Date Temp Pulse Resp B/P (MAP) Pulse Ox O2 O2 Flow FiO2 Time Delivery Rate 11/01/18 87 20 99 Nasal 2.0 11:49 Cannula 11/01/18 108/55 11:00 (72) 11/01/18 98.3 07:52 10/31/18 28 04:56 Intake and Output 10/31/18 10/31/18 11/01/18 1515:00 23:00 07:00 IntakeIntake Total 50 ml 240 ml BalanceBalance 50 ml 240 ml Results Result Diagram: 10/31/18 0502 10/31/18 0502 Results 24hrs Laboratory Tests Test 10/31/18 17:26 10/31/18 20:41 11/01/18 08:02 11/01/18 11:52 Bedside Glucose 104 149 100 96 Test 11/01/18 12:03 White Blood Count Pending Red Blood Count Pending Hemoglobin Pending Hematocrit Pending Mean Corpuscular Pending Volume Mean Corpuscular Pending Hemoglobin Mean Corpuscular Pending Hemoglobin Concent Red Cell Pending Distribution Width Platelet Count Pending Mean Platelet Volume Pending Medications Medication Current Medications Insulin Aspart (Novolog Insulin Pen) NOVOLOG *MILD* ALGORITHM WITH MEALS BEDTIME SC Last administered on 10/29/18 12:53; Admin Dose 1 UNIT; Start 10/29/18 at 08:00 Albuterol/ Ipratropium (Duoneb) 3 ml Q4H RESP THERAPY HHN Last administered on 11/01/18 11:46; Admin Dose 3 ML; Start 10/29/18 at 09:00 Acetaminophen (Tylenol Tab) 650 mg Q6H PRN PO MILD PAIN(1-3)OR ELEVATED TEMP; Start 10/29/18 at 05:30 Ondansetron HCl (Zofran Inj) 4 mg Q4H PRN IV NAUSEA AND/OR VOMITING; Start 10/29/18 at 05:30 Cefepime HCl 50 ml @ 100 mls/hr DAILY IVPB Last administered on 11/01/18 11:49; Admin Dose 100 MLS/HR; Start 10/29/18 at 09:00 Benzonatate (Tessalon) 100 mg Q8H PRN PO COUGH Last administered on 10/29/18 20:08; Admin Dose 100 MG; Start 10/29/18 at 12:30 Calcium Acetate (Phoslo) 1,334 mg WITH MEALS PO Last administered on 11/01/18 11:50; Admin Dose 1,334 MG; Start 10/29/18 at 12:00 Linagliptin (Tradjenta) 5 mg DAILY PO Last administered on 11/01/18 11:50; Admin Dose 5 MG; Start 10/29/18 at 12:00 Pantoprazole (Protonix Tab) 40 mg DAILY@0600 PO Last administered on 11/01/18 05:58; Admin Dose 40 MG; Start 10/30/18 at 06:00 Diagnostic Test (Pha) (Accu-Chek) 1 ea AC MEALS AND BEDTIME XX Last administered on 11/01/18 11:54; Admin Dose 1 EA; Start 10/29/18 at 17:30 Azithromycin (Zithromax) 250 mg DAILY PO Last administered on 11/01/18 11:49; Admin Dose 250 MG; Start 10/30/18 at 09:00; Stop 11/02/18 at 09:01 Oseltamivir Phosphate (Tamiflu) 30 mg AFTER DIALYSIS PO ; Start 10/29/18 at 12:30; Stop 11/02/18 at 23:59 Heparin Sodium (Porcine) (Heparin (5000 Units/1ml)) 5,000 unit BID SC Last administered on 10/31/18at 20:43; Admin Dose 5,000 UNIT; Start 10/30/18 at 21:00 Heparin Sodium (Porcine) (Heparin (1000 Units/ml)) 4,500 unit AFTER DIALYSIS CATHETER Last administered on 10/30/18at 13:18; Admin Dose 4,500 UNIT; Start 10/30/18 at 13:30 ADEOLA BRYAN NP Nov 01, 2018 12:19
[2018-11-01] MEDS ORDERED: LEVOFLOXACIN 250 MG TAB PO SCH (12:30)
[2018-11-01] MEDS ORDERED: GENTAMICIN IV PER PHARMACY XX SCH (12:30)
--- NOTE | 2018-11-01 15:44 | CONS ---
Assessment/Plan Assessment/Plan Assessment/Plan (Daily) ASSESSMENT AND PLAN: This is a 68-year-old female who presented with: 1. Fevers, cough, shortness of breath. Lungs have few crackles on the right and wheezes, could be secondary to underlying pneumonia,/also underlying bronchitis.cute community-acquired pneumonia with possibility of viral component as well. cT of the chest is consistent with multifocal pneumonia dense on the right side patient also has underlying bronchiectasis. Sputum cultures positive for Pseudomonas 2. Fevers. The patient had a recent Perm-A-Cath that was switched 1 month ago. CX is a negative so far 3. End-stage renal disease on hemodialysis. Monday 4. Hypertension. 5. Hyperlipidemia. 6. Atherosclerosis. 7. Diabetes. 8. History of ovarian tumor. 9 6 secondary to pneumonia Plan -Gentamicin per ID for 7 more sessions and continue with Levaquin for 7 more days per ID - cw with nebs - HD Monday, HD today - cw trajendta - fu pulmonary/ID recs -GI/DVT prophylaxis correctional case records supervisor to arrange for him on gentamicin along with hemodialysis Ambulate DC planning Consultation Date/Type/Reason Admit Date/Time Oct 28, 2018 at 23:43 Initial Consult Date 10/29/18 Requesting Provider: ELIANA NEELY MD Date/Time of Note DATE: 11/01/18 TIME: 15:42 24 HR Interval Summary Free Text/Dictation Feels better each day. Culture positive for Pseudomonas Exam/Review of Systems Exam Vitals Vital Signs Date Temp Pulse Resp B/P (MAP) Pulse Ox O2 O2 Flow FiO2 Time Delivery Rate 11/01/18 98.3 99 16 142/62 94 Room Air 14:10 (88) 11/01/18 2.0 11:49 10/31/18 04:56 Intake and Output 10/31/18 10/31/18 11/01/18 1515:00 23:00 07:00 IntakeIntake Total 50 ml 240 ml BalanceBalance 50 ml 240 ml Exam ENERAL: The patient is awake, alert, oriented, does not appear in any acute distress. HEENT: Pupils equal, round, react to light. NECK: Supple, no JVD. HEART: Regular rate and rhythm. Patient has paced. LUNGS: WHEEZES/Crackles heard on the right base and few wheezes heard on the left. ABDOMEN: Positive bowel sounds. EXTREMITIES: Trace edema. CHEST: The patient has a pacemaker in place and the left PermCath. The patient also has a right AV fistula which was placed new. Results Result Diagram: 11/01/18 1408 11/01/18 1203 Results 24hrs Laboratory Tests Test 10/31/18 17:26 10/31/18 20:41 11/01/18 08:02 11/01/18 11:52 Bedside Glucose 104 149 100 96 Test 11/01/18 12:03 11/01/18 14:08 Sodium Level 138 Potassium Level 4.5 Chloride Level 95 L Carbon Dioxide Level 26 Anion Gap 17 H Blood Urea Nitrogen 34 #H Creatinine 7.02 H Est Glomerular 6 L Filtrat Rate mL/min Glucose Level 92 Calcium Level 9.2 Phosphorus Level 3.5 Magnesium Level 1.8 White Blood Count 8.1 Red Blood Count 3.52 L Hemoglobin 11.0 L Hematocrit 35.4 L Mean Corpuscular 100.6 Volume Mean Corpuscular 31.3 Hemoglobin Mean Corpuscular 31.1 L Hemoglobin Concent Red Cell 15.1 H Distribution Width Platelet Count 229 Mean Platelet Volume 9.9 Immature 1.000 H Granulocytes % Neutrophils % 63.4 Lymphocytes % 11.9 L Monocytes % 17.7 H Eosinophils % 5.5 Basophils % 0.5 Nucleated Red Blood 0.0 Cells % Immature 0.080 H Granulocytes # Neutrophils # 5.1 Lymphocytes # 1.0 Monocytes # 1.4 H Eosinophils # 0.4 Basophils # 0.0 Nucleated Red Blood 0.0 Cells # Medications Medication Current Medications Insulin Aspart (Novolog Insulin Pen) NOVOLOG *MILD* ALGORITHM WITH MEALS BEDTIME SC Last administered on 10/29/18at 12:53; Admin Dose 1 UNIT; Start 10/29/18 at 08:00 Albuterol/ Ipratropium (Duoneb) 3 ml Q4H RESP THERAPY HHN Last administered on 11/01/18at 11:46; Admin Dose 3 ML; Start 10/29/18 at 09:00 Acetaminophen (Tylenol Tab) 650 mg Q6H PRN PO MILD PAIN(1-3)OR ELEVATED TEMP; Start 10/29/18 at 05:30 Ondansetron HCl (Zofran Inj) 4 mg Q4H PRN IV NAUSEA AND/OR VOMITING; Start 10/29/18 at 05:30 Benzonatate (Tessalon) 100 mg Q8H PRN PO COUGH Last administered on 10/29/18 20:08; Admin Dose 100 MG; Start 10/29/18 at 12:30 Calcium Acetate (Phoslo) 1,334 mg WITH MEALS PO Last administered on 11/01/18 11:50; Admin Dose 1,334 MG; Start 10/29/18 at 12:00 Linagliptin (Tradjenta) 5 mg DAILY PO Last administered on 11/01/18 11:50; Admin Dose 5 MG; Start 10/29/18 at 12:00 Pantoprazole (Protonix Tab) 40 mg DAILY@0600 PO Last administered on 11/01/18 05:58; Admin Dose 40 MG; Start 10/30/18 at 06:00 Diagnostic Test (Pha) (Accu-Chek) 1 ea AC MEALS AND BEDTIME XX Last administered on 11/01/18 11:54; Admin Dose 1 EA; Start 10/29/18 at 17:30 Oseltamivir Phosphate (Tamiflu) 30 mg AFTER DIALYSIS PO Last administered on 11/01/18 14:19; Admin Dose 30 MG; Start 10/29/18 at 12:30; Stop 11/02/18 at 23:59 Heparin Sodium (Porcine) (Heparin (5000 Units/1ml)) 5,000 unit BID SC Last administered on 10/31/18 20:43; Admin Dose 5,000 UNIT; Start 10/30/18 at 21:00 Heparin Sodium (Porcine) (Heparin (1000 Units/ml)) 4,500 unit AFTER DIALYSIS CATHETER Last administered on 10/30/18 13:18; Admin Dose 4,500 UNIT; Start 10/30/18 at 13:30 Levofloxacin (Levaquin) 250 mg Q48H PO Last administered on 11/01/18 13:35; Admin Dose 250 MG; Start 11/01/18 at 12:30 Gentamicin Sulfate (Gentamicin Iv Per Pharmacy) GENTAMICIN PER PHARMACY NOTE XX ; Start 11/01/18 at 12:30 Gentamicin Sulfate 150 mg/ Sodium Chloride 103.75 ml @ 104 mls/ hr ONCE IVPB ; Start 11/01/18 at 16:00; Stop 11/01/18 at 17:00 Gentamicin Sulfate 50 ml @ 100 mls/hr AFTER DIALYSIS IVPB ; Start 11/02/18 at 15:00 ELIANA NEELY MD Nov 01, 2018 15:44
[2018-11-01] MEDS ORDERED: GENTAMICIN 150 MG in SOD CHLORIDE 0.9% 100 ML IVPB SCH (16:00)
[2018-11-02] MEDS: ALBUTEROL/IPRATROPIUM (NEB) 3 ML AMP HHN SCH ×4 (00:47→09:38)
[2018-11-02 01:53] VITALS: BP 108/52; PULSE 89; RESP 20
[2018-11-02] MEDS: PANTOPRAZOLE (EC) 40 MG TAB PO SCH (06:19)
[2018-11-02 07:45] VITALS: BP 108/59; PULSE 98; RESP 18
[2018-11-02] MEDS: INSULIN ASPART [NOVOLOG] 3 ML PEN SC SCH ×2 (08:00→12:00)
[2018-11-02] MEDS: CALCIUM ACETATE 667 MG CAP PO SCH ×2 (08:01→12:32)
[2018-11-02] MEDS: ACCU-CHEK XX SCH ×2 (08:01→12:24)
[2018-11-02] MEDS: HEPARIN 5,000 UNIT/1 ML VIAL SC SCH (08:09)
[2018-11-02] MEDS: LINAGLIPTIN 5 MG TABLET PO SCH (08:09)
--- NOTE | 2018-11-02 11:31 | CONS ---
Consult Date/Type/Reason Admit Date/Time Oct 28, 2018 at 23:43 Initial Consult Date 10/29/18 Type of Consultation: cv Requesting Provider: ELIANA NEELY MD Date/Time of Note DATE: 11/02/18 TIME: 11:31 Subjective Cardiology follow-up progress note Subjective: Case discussed with the staff. dW pt is off tele now No chest pain or pressure. She has less shortness of breath and cough and feels better today Objective: General: no acute distress HEENT: NC/AT. pupils are equal. round. NECK: NO JVD. no stridor. chest: s/p L HD access. s/p PPM CV: RRR. systolic murmur; no gallop or rubs. PULM: no wheezing or rhonchi. GI: SOFT, NT, ND, no rebound or guarding Extremity: trace B/L LE edema. no clubbing. neuro: awake and alert, OX3. Psych: calm and pleasant rectal: deferred Echocardiogram done March 05, 2019 showed ejection fraction about 50% LVH with diastolic dysfunction. The old chart from my office shows on February 2017 had a stress test showed ejection fraction of 46-60% with normal perfusion CT of the chest 1. Dense consolidation in the right lower lobe and focal nodular consolidation in the posterior left upper lobe is most in keeping with multifocal pneumonia. Recommend clinical correlation and follow-up chest x-ray after therapy to document resolution. 2. Mixed cylindrical and varicose bronchiectasis in the right upper lobe and mild cylindrical bronchiectasis in the anterior left upper lobe with areas of mucus plugging. 3. Trace right pleural effusion and mild bilateral dependent atelectasis. 4. Mild coronary artery calcification with a biventricular pacemaker and hemodialysis catheter. Enlarged main pulmonary artery in keeping with pulmonary hypertension. 5. Enlarged vessels in the right superior chest wall may be secondary evidence of occlusion of the right arm veins that cannot be directly evaluated without intravenous contrast. 6. Please note that in the absence of intravenous contrast, the study does not evaluate the patency of the vasculature. Objective Vitals Vital Signs Date Temp Pulse Resp B/P (MAP) Pulse Ox O2 O2 Flow FiO2 Time Delivery Rate 11/02/18 Nasal 2.0 10:19 Cannula 11/02/18 97 18 99 09:38 11/02/18 98.1 108/59 07:45 (75) 10/31/18 28 04:56 Intake and Output 11/01/18 11/01/18 11/02/18 1515:00 23:00 07:00 IntakeIntake Total 250 ml 353.75 ml OutputOutput Total 2600 ml BalanceBalance -2350 ml 353.75 ml Results/Medications Result Diagram: 11/01/18 1408 11/01/18 1203 Results 24 hrs Laboratory Tests Test 11/01/18 11:52 11/01/18 12:03 11/01/18 14:08 11/01/18 17:17 Bedside Glucose 96 116 Sodium Level 138 Potassium Level 4.5 Chloride Level 95 L Carbon Dioxide Level 26 Anion Gap 17 H Blood Urea Nitrogen 34 #H Creatinine 7.02 H Est Glomerular 6 L Filtrat Rate mL/min Glucose Level 92 Calcium Level 9.2 Phosphorus Level 3.5 Magnesium Level 1.8 White Blood Count 8.1 Red Blood Count 3.52 L Hemoglobin 11.0 L Hematocrit 35.4 L Mean Corpuscular 100.6 Volume Mean Corpuscular 31.3 Hemoglobin Mean Corpuscular 31.1 L Hemoglobin Concent Red Cell 15.1 H Distribution Width Platelet Count 229 Mean Platelet Volume 9.9 Immature 1.000 H Granulocytes % Neutrophils % 63.4 Lymphocytes % 11.9 L Monocytes % 17.7 H Eosinophils % 5.5 Basophils % 0.5 Nucleated Red Blood 0.0 Cells % Immature 0.080 H Granulocytes # Neutrophils # 5.1 Lymphocytes # 1.0 Monocytes # 1.4 H Eosinophils # 0.4 Basophils # 0.0 Nucleated Red Blood 0.0 Cells # Test 11/01/18 21:04 11/02/18 07:46 Bedside Glucose 116 107 Home Meds Active Scripts Benzonatate* (Tessalon Perle*) 100 Mg Capsule, 100 MG PO Q8H PRN for COUGH, #30 CAP Prov:LIAN ROJAS MD 10/25/18 Reported Medications Hydralazine Hcl* (Hydralazine Hcl*) 25 Mg Tab, 75 MG PO TID, #90 TAB 10/12/18 Linagliptin (TRADJENTA) 5 Mg Tablet, 5 MG PO DAILY, TAB 10/12/18 Metoprolol Succinate* (Toprol XL*) 50 Mg Tab.er.24h, 50 MG PO DAILY, #30 TAB 10/12/18 Calcium Acetate* (Calcium Acetate*) 667 Mg Capsule, 1334 MG PO WITH MEALS, #60 CAP 10/12/18 Folic Acid* (Folic Acid*) 1 Mg Tablet, 1 MG PO DAILY, TAB 10/12/18 Docusate Sodium* (Colace*) 100 Mg Capsule, 100 MG PO DAILY, #30 CAP 10/12/18 Pantoprazole* (Protonix*) 40 Mg Tablet.dr, 40 MG PO DAILY, TAB 10/04/18 Cholecalciferol* (Vitamin D*) 400 Unit Tablet, 400 UNIT PO BID, TAB 10/04/18 Medications Current Medications Insulin Aspart (Novolog Insulin Pen) NOVOLOG *MILD* ALGORITHM WITH MEALS BEDTIME SC Last administered on 10/29/18 12:53; Admin Dose 1 UNIT; Start 10/29/18 at 08:00 Albuterol/ Ipratropium (Duoneb) 3 ml Q4H RESP THERAPY HHN Last administered on 11/02/18at 09:38; Admin Dose 3 ML; Start 10/29/18 at 09:00 Acetaminophen (Tylenol Tab) 650 mg Q6H PRN PO MILD PAIN(1-3)OR ELEVATED TEMP; Start 10/29/18 at 05:30 Ondansetron HCl (Zofran Inj) 4 mg Q4H PRN IV NAUSEA AND/OR VOMITING; Start 10/29/18 at 05:30 Benzonatate (Tessalon) 100 mg Q8H PRN PO COUGH Last administered on 10/29/18at 20:08; Admin Dose 100 MG; Start 10/29/18 at 12:30 Calcium Acetate (Phoslo) 1,334 mg WITH MEALS PO Last administered on 11/02/18at 08:01; Admin Dose 1,334 MG; Start 10/29/18 at 12:00 Linagliptin (Tradjenta) 5 mg DAILY PO Last administered on 11/02/18 08:09; Admin Dose 5 MG; Start 10/29/18 at 12:00 Pantoprazole (Protonix Tab) 40 mg DAILY@0600 PO Last administered on 11/02/18 06:19; Admin Dose 40 MG; Start 10/30/18 at 06:00 Diagnostic Test (Pha) (Accu-Chek) 1 ea AC MEALS AND BEDTIME XX Last administered on 11/02/18 08:01; Admin Dose 1 EA; Start 10/29/18 at 17:30 Oseltamivir Phosphate (Tamiflu) 30 mg AFTER DIALYSIS PO Last administered on 11/01/18at 14:19; Admin Dose 30 MG; Start 10/29/18 at 12:30; Stop 11/02/18 at 23:59 Heparin Sodium (Porcine) (Heparin (5000 Units/1ml)) 5,000 unit BID SC Last administered on 11/02/18 08:09; Admin Dose 5,000 UNIT; Start 10/30/18 at 21:00 Heparin Sodium (Porcine) (Heparin (1000 Units/ml)) 4,500 unit AFTER DIALYSIS CATHETER Last administered on 10/30/18at 13:18; Admin Dose 4,500 UNIT; Start 10/30/18 at 13:30 Levofloxacin (Levaquin) 250 mg Q48H PO Last administered on 11/01/18at 13:35; Admin Dose 250 MG; Start 11/01/18 at 12:30 Gentamicin Sulfate (Gentamicin Iv Per Pharmacy) GENTAMICIN PER PHARMACY NOTE XX ; Start 11/01/18 at 12:30 Gentamicin Sulfate 50 ml @ 100 mls/hr AFTER DIALYSIS IVPB ; Start 11/02/18 at 15:00 Assessment/Plan Hospital Course (Demo Recall) 1. Complete heart block status post MRI compatible permanent pacemaker 2. Fever cough with dense consolidation/pneumonia on the chest CT 3. Hypertension 4. Diabetes 5. End-stage renal disease hemodialysis Recommendation: Antibiotic management as per ID influenza nasal swab were negative Hemodialysis as per renal Continue home blood pressure medications Thank you for his referral will continue to follow along with you YOSEPH CARCAMO MD [facility] YOSEPH CARCAMO MD Nov 02, 2018 11:31
--- NOTE | 2018-11-02 11:49 | DS ---
Date/Time of Note Date/Time of Note DATE: 11/02/18 TIME: 11:49 Discharge Summary Admission/Discharge Info Admit Date/Time Oct 28, 2018 at 23:43 Discharge Date/Time Discharge Diagnosis pneumonia Patient Condition: Stable Consults Dr Musa, ID, Dr Gonzales, cardiology, dr Thomson, pulmonology. Hospital Course This is a 68-year-old female with a past medical history of end-stage renal disease on hemodialysis Monday, and Monday; hypertension, diabetes, pacemaker placement, atherosclerotic heart disease, dyslipidemia, CHF, pneumonia, presented to the Emergency Department complaining of cough and shortness of breath for the last 4 to 5 days. The patient said her granddaughter was sick at home. She was having some cough and shortness of breath for the last 3 to 4 days. She came to the Emergency Department here was sent home with antibiotics; however, did not feel better, started getting worse and came to the Emergency Department. The patient had fever of 102, pulse was 105, blood pressure was 155/74. White count 13.8, hemoglobin 11.1, platelet count 198, potassium of 4.8, BUN of 62, creatinine 9.44. A chest x-ray showed no acute cardiopulmonary disease, aortic atherosclerotic calcification, left IJ Perm-A-Cath. Patient was started on cefepime and vancomycin and was admitted for further management. PAST MEDICAL HISTORY: 1. Diabetes. 2. Hypertension. 3. Hyperlipidemia. 4. End-stage renal disease on hemodialysis Monday, and Monday. 5. Atherosclerotic heart disease. 6. Congestive heart failure. 7. History of bronchiectasis. Admission dx: 1. Fevers, cough, shortness of breath. Lungs have few crackles on the right and wheezes, could be secondary to underlying pneumonia,/also underlying bronchitis. Acute community-acquired pneumonia with possibility of viral component as well. CT of the chest is consistent with multifocal pneumonia dense on the right side patient also has underlying bronchiectasis. Sputum cultures positive for Pseudomonas 2. Fevers. The patient had a recent Perm-A-Cath that was switched 1 month ago. CXray is a negative so far 3. End-stage renal disease on hemodialysis. Monday 4. Hypertension. 5. Hyperlipidemia. 6. Atherosclerosis. 7. Diabetes. 8. History of ovarian tumor. During hospitalization pt was consulted by few specialists. ID specilist Dr Musa recommended to continue with vancomycin/cefepime/Tamiflu. Per pulmonary Dr Thomson pt was given supplemental oxygen, breathing treatment and supportive care. Cultures were collected. Pt was continued with HD on Monday schedule. There were strict hypoglycemic control and pt was continued with Tradjenta. Dr Gonzales was pt referral specialist, he kept her on telemetry for a few days until he found he SOB is not related to cardiac events and more likely due to respiratory failure secondary to pneumonia. Hypertension was controlled. Culture grown Pseudomonas. ID specialist recommended Gentamicin per ID for 7 more sessions and continue with Levaquin for 7 more days. nurse care manager was able to arrange for her gentamicin along with hemodialysis. pt reported feeling better, she was able to ambulate. She was d/c home to follow up with HD and a/b in [place] [facility], Discharge ds: 1. Pneumonia, Sputum cultures positive for Pseudomonas 2. Anemia of chronic disease Fevers. 3. End-stage renal disease on hemodialysis. Monday 4. Hypertension. 5. Hyperlipidemia. 6. Atherosclerosis. 7. Diabetes mellitus type II. 8. History of ovarian tumor. 9. Obesity Home Meds Active Scripts Benzonatate* (Tessalon Perle*) 100 Mg Capsule, 100 MG PO Q8H PRN for COUGH, #30 CAP Prov:LIAN ROJAS MD 10/25/18 Reported Medications Hydralazine Hcl* (Hydralazine Hcl*) 25 Mg Tab, 75 MG PO TID, #90 TAB 10/12/18 Linagliptin (TRADJENTA) 5 Mg Tablet, 5 MG PO DAILY, TAB 10/12/18 Metoprolol Succinate* (Toprol XL*) 50 Mg Tab.er.24h, 50 MG PO DAILY, #30 TAB 10/12/18 Calcium Acetate* (Calcium Acetate*) 667 Mg Capsule, 1334 MG PO WITH MEALS, #60 CAP 10/12/18 Folic Acid* (Folic Acid*) 1 Mg Tablet, 1 MG PO DAILY, TAB 10/12/18 Docusate Sodium* (Colace*) 100 Mg Capsule, 100 MG PO DAILY, #30 CAP 10/12/18 Pantoprazole* (Protonix*) 40 Mg Tablet., 40 MG PO DAILY, TAB 10/04/18 Cholecalciferol* (Vitamin D*) 400 Unit Tablet, 400 UNIT PO BID, TAB 10/04/18 Follow-up Plan c/w [facility] Primary Care Provider Alireza Moya MD Time spent on discharge: < 30 minutes Pending Labs Laboratory Tests Test 11/01/18 11:52 11/01/18 12:03 11/01/18 14:08 11/01/18 17:17 Bedside 96 116 Glucose mg/dL (70-220) mg/dL (70-220) Sodium Level 138 mmol/L (135-14 4) Potassium 4.5 Level mmol/L (3.5-5. 1) Chloride Level 95 mmol/L (97-110 ) Carbon Dioxide 26 Level mmol/L (21-31) Anion Gap 17 (5-13) Blood Urea 34 Nitrogen mg/dl (7-20) Creatinine 7.02 mg/dl (0.44-1. 00) Est Glomerular 6 mL/min (>60) Filtrat Rate mL/min Glucose Level 92 mg/dl (70-220) Calcium Level 9.2 mg/dl (8.4-10. 2) Phosphorus 3.5 Level mg/dl (2.5-4.9 ) Magnesium 1.8 Level mg/dl (1.7-2.5 ) White Blood 8.1 Count 10^3/ul (4.8-1 0.8) Red Blood 3.52 Count 10^6/ul (4.20- 5.40) Hemoglobin 11.0 g/dl (12.0-16. 0) Hematocrit 35.4 % (37.0-47.0) Mean 100.6 Corpuscular fl (82.0-101.0 Volume ) Mean 31.3 Corpuscular pg (29.0-33.0) Hemoglobin Mean 31.1 Corpuscular g/dl (32.0-37. Hemoglobin Conc 0) ent Red Cell 15.1 Distribution % (11.5-14.5) Width Platelet Count 229 10^3/UL (140-4 15) Mean Platelet 9.9 Volume fl (7.4-10.4) Immature 1.000 Granulocytes % % (0.001-0.429 ) Neutrophils % 63.4 % (39.0-77.0) Lymphocytes % 11.9 % (15.0-51.0) Monocytes % 17.7 % (0.0-11.0) Eosinophils % 5.5 % (0.0-7.0) Basophils % 0.5 % (0.0-2.0) Nucleated Red 0.0 Blood Cells % /100WBC (0.0-0 .0) Immature 0.080 Granulocytes # 10^3/ul (0.0-0 .031) Neutrophils # 5.1 10^3/ul (1.6-7 .5) Lymphocytes # 1.0 10^3/ul (0.8-2 .9) Monocytes # 1.4 10^3/ul (0.3-0 .9) Eosinophils # 0.4 10^3/ul (0.0-0 .5) Basophils # 0.0 10^3/ul (0.0-0 .1) Nucleated Red 0.0 Blood Cells # 10^3/ul (0.0-0 .0) Test 11/01/18 21:04 11/02/18 07:46 Bedside 116 107 Glucose mg/dL (70-220) mg/dL (70-220) JANE MARIE Nov 02, 2018 11:49
--- NOTE | 2018-11-02 11:52 | PDOCDIS ---
Discharge Instructions CONDITION [id number] Patient Condition: [id number] Stable HOME CARE INSTRUCTIONS: [id number] Diet Instructions: Nctbv1h Low Fat /Cholesterol ACTIVITY: [id number] Activity Restrictions: [id number] Slowly Increase Activity Rest between Activity Avoid heavy lifting FOLLOW UP/APPOINTMENTS Follow-up Plan c/w [facility] JANE MARIE Nov 02, 2018 11:52
--- NOTE | 2018-11-02 12:46 | CONS ---
Assessment/Plan Assessment/Plan Hospital Course (Demo Recall) all noted, no acute events Indwelling: Left chest permacath Microbiology: sputum cx + PSA Antimicrobials: Levaquin Gentamicin Diagnostics: CT of the chest revealed dense consolidation in the right lower lobe and focal nodular consolidation in posterior left upper lobe most keeping with multifocal pneumonia Physical examination: This is an obese well-developed elderly woman who is alert in no distress. Head atraumatic normocephalic. Neck is supple chest rise symmetrical breath sounds diminished bases. Heart: S1-S2. Abdomen soft bowel sounds present. Extremities with trace edema Assessment: 1. Status post sepsis, present on admission 2. Acute hypoxemic respiratory failure secondary to pneumonia 3. Coronary artery disease status post permanent pacemaker 4. End-stage renal disease 5. Hypertension 6. Morbid obesity Plan: Stable, continue abx==> 6 more days Consultation Date/Type/Reason Admit Date/Time Oct 28, 2018 at 23:43 Initial Consult Date 10/29/18 Type of Consult id Requesting Provider: ELIANA NEELY MD Date/Time of Note DATE: 11/02/18 TIME: 12:45 Exam/Review of Systems Exam Vitals Vital Signs Date Temp Pulse Resp B/P (MAP) Pulse Ox O2 O2 Flow FiO2 Time Delivery Rate 11/02/18 Nasal 2.0 10:19 Cannula 11/02/18 97 18 99 09:38 11/02/18 98.1 108/59 07:45 (75) 10/31/18 28 04:56 Intake and Output 11/01/18 11/01/18 11/02/18 1515:00 23:00 07:00 IntakeIntake Total 250 ml 353.75 ml OutputOutput Total 2600 ml BalanceBalance -2350 ml 353.75 ml Results Result Diagram: 11/01/18 1408 11/01/18 1203 Results 24hrs Laboratory Tests Test 11/01/18 14:08 11/01/18 17:17 11/01/18 21:04 11/02/18 07:46 White Blood Count 8.1 Red Blood Count 3.52 L Hemoglobin 11.0 L Hematocrit 35.4 L Mean Corpuscular 100.6 Volume Mean Corpuscular 31.3 Hemoglobin Mean Corpuscular 31.1 L Hemoglobin Concent Red Cell 15.1 H Distribution Width Platelet Count 229 Mean Platelet Volume 9.9 Immature 1.000 H Granulocytes % Neutrophils % 63.4 Lymphocytes % 11.9 L Monocytes % 17.7 H Eosinophils % 5.5 Basophils % 0.5 Nucleated Red Blood 0.0 Cells % Immature 0.080 H Granulocytes # Neutrophils # 5.1 Lymphocytes # 1.0 Monocytes # 1.4 H Eosinophils # 0.4 Basophils # 0.0 Nucleated Red Blood 0.0 Cells # Bedside Glucose 116 116 107 Test 11/02/18 12:17 Bedside Glucose 99 Medications Medication Current Medications Insulin Aspart (Novolog Insulin Pen) NOVOLOG *MILD* ALGORITHM WITH MEALS BEDTIME SC Last administered on 10/29/18 12:53; Admin Dose 1 UNIT; Start 10/29/18 at 08:00 Albuterol/ Ipratropium (Duoneb) 3 ml Q4H RESP THERAPY HHN Last administered on 11/02/18 09:38; Admin Dose 3 ML; Start 10/29/18 at 09:00 Acetaminophen (Tylenol Tab) 650 mg Q6H PRN PO MILD PAIN(1-3)OR ELEVATED TEMP; Start 10/29/18 at 05:30 Ondansetron HCl (Zofran Inj) 4 mg Q4H PRN IV NAUSEA AND/OR VOMITING; Start 10/29/18 at 05:30 Benzonatate (Tessalon) 100 mg Q8H PRN PO COUGH Last administered on 10/29/18 20:08; Admin Dose 100 MG; Start 10/29/18 at 12:30 Calcium Acetate (Phoslo) 1,334 mg WITH MEALS PO Last administered on 11/02/18 12:32; Admin Dose 1,334 MG; Start 10/29/18 at 12:00 Linagliptin (Tradjenta) 5 mg DAILY PO Last administered on 11/02/18 08:09; Admin Dose 5 MG; Start 10/29/18 at 12:00 Pantoprazole (Protonix Tab) 40 mg DAILY@0600 PO Last administered on 11/02/18 06:19; Admin Dose 40 MG; Start 10/30/18 at 06:00 Diagnostic Test (Pha) (Accu-Chek) 1 ea AC MEALS AND BEDTIME XX Last administered on 11/02/18 12:24; Admin Dose 1 EA; Start 10/29/18 at 17:30 Oseltamivir Phosphate (Tamiflu) 30 mg AFTER DIALYSIS PO Last administered on 11/01/18at 14:19; Admin Dose 30 MG; Start 10/29/18 at 12:30; Stop 11/02/18 at 23:59 Heparin Sodium (Porcine) (Heparin (5000 Units/1ml)) 5,000 unit BID SC Last administered on 11/02/18 08:09; Admin Dose 5,000 UNIT; Start 10/30/18 at 21:00 Heparin Sodium (Porcine) (Heparin (1000 Units/ml)) 4,500 unit AFTER DIALYSIS CATHETER Last administered on 10/30/18at 13:18; Admin Dose 4,500 UNIT; Start 10/30/18 at 13:30 Levofloxacin (Levaquin) 250 mg Q48H PO Last administered on 11/01/18at 13:35; Admin Dose 250 MG; Start 11/01/18 at 12:30 Gentamicin Sulfate (Gentamicin Iv Per Pharmacy) GENTAMICIN PER PHARMACY NOTE XX ; Start 11/01/18 at 12:30 Gentamicin Sulfate 50 ml @ 100 mls/hr AFTER DIALYSIS IVPB ; Start 11/02/18 at 15:00 ADEOLA BRYAN NP Nov 02, 2018 12:46
[2018-11-02] MEDS ORDERED: GENTAMICIN 100 MG/50 ML NS IVPB SCH (15:00)
== END 2018-11-02 13:05 | disposition home or self-care (01) | DRG 871 ==
LOC: E/R 20:31 → 6WM 23:43 → PP2 10-31 14:40
PROVIDERS: ADMIT Internal Medicine; ATTEND Internal Medicine
PROC: 5A1D70Z Performance of Urinary Filtration, Intermittent, Less than 6 Hours Per Day (ICD-10-PCS; principal; 2018-10-31)
PROC: 5A1D70Z Performance of Urinary Filtration, Intermittent, Less than 6 Hours Per Day (ICD-10-PCS; 2018-10-31)
DX: A41.9 Sepsis, unspecified organism (principal); J18.9 Pneumonia, unspecified organism; N18.6 End stage renal disease; J96.01 Acute respiratory failure with hypoxia; I13.2 Hypertensive heart and chronic kidney disease with heart failure and with stage 5 chronic kidney disease, or end stage renal disease; I44.2 Atrioventricular block, complete; E11.22 Type 2 diabetes mellitus with diabetic chronic kidney disease; D69.6 Thrombocytopenia, unspecified; E66.01 Morbid (severe) obesity due to excess calories; I50.9 Heart failure, unspecified; D63.1 Anemia in chronic kidney disease; E78.5 Hyperlipidemia, unspecified; I25.10 Atherosclerotic heart disease of native coronary artery without angina pectoris; Z99.2 Dependence on renal dialysis; Z68.30 Body mass index [BMI] 30.0-30.9, adult; Z79.4 Long term (current) use of insulin
CPT/HCPCS: 36415; 71045; 71250; 80048; 80053; 80202; 82962; 83605; 83735; 84100; 84145; 84484; 85025; 85610; 85730; 87040; 87070; 87081; 87340; 87400; 90935; 93005; 94640; 94664; 96374; 96375; C9113; J0692; J1580; J1644; J1815; J2405; J3370; J7030

== ENCOUNTER 2018-11-28 08:22 | Emergency (ER) | payer MEDICARE, OTHER ==
[~2018-11-28] VITALS: Wt 89.2 kg
--- NOTE | 2018-11-28 10:43 | ERD ---
ER Documentation Chief Complaint Chief Complaint FEELS WEAK, HAD DIALYISIS YESTERDAY HPI 68-year-old female presents emergency department complaining of generalized weakness. Patient had a normal dialysis yesterday and is scheduled for dialysis tomorrow. Patient presents complaining of generalized weakness. She has no focal weakness or numbness. She reports no headache. She reports no fevers or chills. She reports no trouble breathing or chest pain. She reports no abdominal pain. In fact, other than feeling generally weak, she has no other acute symptoms. ROS All systems reviewed and are negative except as per history of present illness. Medications Home Meds Active Scripts Benzonatate* (Tessalon Perle*) 100 Mg Capsule, 100 MG PO Q8H PRN for COUGH, #30 CAP Prov:LIAN ROJAS MD 10/25/18 Reported Medications Hydralazine Hcl* (Hydralazine Hcl*) 25 Mg Tab, 75 MG PO TID, #90 TAB 10/12/18 Linagliptin (TRADJENTA) 5 Mg Tablet, 5 MG PO DAILY, TAB 10/12/18 Metoprolol Succinate* (Toprol XL*) 50 Mg Tab.er.24h, 50 MG PO DAILY, #30 TAB 10/12/18 Calcium Acetate* (Calcium Acetate*) 667 Mg Capsule, 1334 MG PO WITH MEALS, #60 CAP 10/12/18 Folic Acid* (Folic Acid*) 1 Mg Tablet, 1 MG PO DAILY, TAB 10/12/18 Docusate Sodium* (Colace*) 100 Mg Capsule, 100 MG PO DAILY, #30 CAP 10/12/18 Pantoprazole* (Protonix*) 40 Mg Tablet.dr, 40 MG PO DAILY, TAB 10/04/18 Cholecalciferol* (Vitamin D*) 400 Unit Tablet, 400 UNIT PO BID, TAB 10/04/18 Allergies Allergies: Coded Allergies: No Known Allergy (Unverified , 11/28/18) PMhx/Soc History of Surgery: Yes (PACEMAKER, R FISTULA, HYST) Anesthesia Reaction: No Hx Neurological Disorder: No Hx Respiratory Disorders: No Hx Cardiac Disorders: Yes (HTN) Hx Psychiatric Problems: No Hx Miscellaneous Medical Probl: Yes (ESRD/DIALYSIS, OVARIAN CA, DM, HIGH BROOK) Hx Alcohol Use: No Hx Substance Use: No Hx Tobacco Use: No Smoking Status: Never smoker Physical Exam Vitals Vital Signs Date Temp Pulse Resp B/P (MAP) Pulse Ox O2 O2 Flow FiO2 Time Delivery Rate 11/28/18 97.4 68 18 151/70 99 08:28 (97) Physical Exam GENERAL: The patient is well developed and appropriate for usual state of health in no apparent distress HEENT: Pupils equal, round, and reactive to light. EOMI. There is no scleral icterus. NECK: C-spine is soft and supple, there is no meningismus. There is no cervical lymphadenopathy. LUNGS: Clear to auscultation bilaterally. There are no rales, wheezes or rhonchi. HEART: Regular rate and rhythm, no murmurs, clicks, rubs or gallops. ABDOMEN: Soft, non-tender, non-distended. There are bowel sounds in all four quadrants. No rebound or guarding. EXTREMITIES: There is no peripheral cyanosis or edema. No focal swelling or erythema. NEURO: The patient moves all four extremities with 5/5 strength. Cranial nerves II - XII are intact. Normal gait. Alert and oriented SKIN: There is no apparent rash or petechiae. Left upper chest wall dialysis catheter noted without inflammatory changes. HEME/LYMPHATIC: There is no evidence of excessive bruising or lymphedema. PSYCHIATRIC: The patient does not appear anxious or depressed. Result Diagram: 11/28/18 0908 11/28/18 0940 Results 24 hrs Laboratory Tests Test 11/28/18 09:08 11/28/18 09:09 11/28/18 09:40 White Blood Count 6.4 10^3/ul Red Blood Count 4.29 10^6/ul Hemoglobin 14.3 g/dl Hematocrit 45.6 % Mean Corpuscular Volume 106.3 fl Mean Corpuscular Hemoglobin 33.3 pg Mean Corpuscular 31.4 g/dl Hemoglobin Concent Red Cell Distribution Width 18.7 % Platelet Count 140 10^3/UL Mean Platelet Volume 10.9 fl Immature Granulocytes % 0.300 % Neutrophils % 65.4 % Lymphocytes % 14.4 % Monocytes % 13.1 % Eosinophils % 6.3 % Basophils % 0.5 % Nucleated Red Blood Cells % 0.5 /100WBC Immature Granulocytes # 0.020 10^3/ul Neutrophils # 4.2 10^3/ul Lymphocytes # 0.9 10^3/ul Monocytes # 0.8 10^3/ul Eosinophils # 0.4 10^3/ul Basophils # 0.0 10^3/ul Nucleated Red Blood Cells # 0.0 10^3/ul POC Venous Lactate 1.0 mmol/L Sodium Level 138 mmol/L Potassium Level 6.7 mmol/L Chloride Level 99 mmol/L Carbon Dioxide Level 27 mmol/L Anion Gap 12 Blood Urea Nitrogen 56 mg/dl Creatinine 10.53 mg/dl Est Glomerular Filtrat 4 mL/min Rate mL/min Glucose Level 120 mg/dl Calcium Level 9.5 mg/dl Total Bilirubin 0.2 mg/dl Direct Bilirubin 0.00 mg/dl Indirect Bilirubin 0.2 mg/dl Aspartate Amino Transf (AST/SGOT) 29 IU/L Alanine 17 IU/L Aminotransferase (ALT/SGPT) Alkaline Phosphatase 127 IU/L Troponin I < 0.012 ng/ml Total Protein 8.2 g/dl Albumin 4.4 g/dl Globulin 3.80 g/dl Albumin/Globulin Ratio 1.15 Procedures/MDM Patient was taken to a room, seen and evaluated. Comfort measures were initiated. Diagnostic tests were ordered and reviewed. 3 LEAD RHYTHM STRIP: Ventricular pacemaker EK lead EKG reviewed by myself: Pacemaker Pacemaker morphology No ST elevation, depression, or T wave inversion Impression: Consistent with her pacemaker RADIOLOGY: Reviewed with the radiologist CONSULTATION: I called to Dr. Ramos to make arrangements for outpatient evaluation REEVALUATION: 1040: Diagnostic tests were appreciated and discussed with the patient. She remains comfortable appearing, hemodynamically stable and neurologically nonfocal MEDICAL DECISION MAKIN-year-old presents the emergency department generalized weakness in the setting of renal failure. Although she does have her ongoing renal failure, she is set up as an outpatient for dialysis and is appropriate for dialysis today. She has no indication of infection, ischemia, stroke or other high-risk concerns causing weakness. She appears to be clinically nontoxic and appropriate for discharge at this time. Departure Diagnosis: Primary Impression: Renal failure Additional Impression: Weakness Condition: Stable Patient Instructions: Generalized Weakness Referrals: JEFF RAMOS MD (PCP) Additional Instructions: See your doctor for follow-up as discussed. Take a copy of your test results, if appropriate, to this follow-up visit. See your doctor or return here if your symptoms do not improve as expected. At any time, please return to the emergency department for any change or wor sening in her symptoms. ROSELINE TOVAR Nov 28, 2018 10:43
[2018-11-28 10:57] VITALS: BP 136/71; PULSE 68; RESP 17
== END 2018-11-28 11:07 | disposition home or self-care (01) ==
LOC: E/R 08:22
DX: R53.1 Weakness (principal); E11.22 Type 2 diabetes mellitus with diabetic chronic kidney disease; N18.6 End stage renal disease; I12.0 Hypertensive chronic kidney disease with stage 5 chronic kidney disease or end stage renal disease; Z79.84 Long term (current) use of oral hypoglycemic drugs; Z85.43 Personal history of malignant neoplasm of ovary; Z99.2 Dependence on renal dialysis
CPT/HCPCS: 36415; 71045; 80053; 83605; 84484; 85025; 93005

== ENCOUNTER 2019-01-16 11:59 | Emergency (ER) | payer MEDICARE, OTHER ==
[~2019-01-16] VITALS: Ht 172.7 cm; Wt 88.6 kg
[2019-01-16 12:01] VITALS: BP 163/77; PULSE 80; RESP 19; Ht 172.7 cm; Wt 88.6 kg
[2019-01-16] MEDS ORDERED: ONDANSETRON (ODT) 4 MG TAB ODT STA (12:45)
[2019-01-16] MEDS ORDERED: ONDA4TAB14 PO (14:58)
--- NOTE | 2019-01-16 15:10 | ERD ---
ER Documentation Chief Complaint Chief Complaint LOOSE BOWEL MOVEMENT X 5 SINCE THIS MORNING HPI 68-year-old female presenting with loose bowel movements for the last day. Patient denies any abdominal pain. The diarrhea started after eating tilapia last night. She denies any medications for her symptoms. Denies fever and states her abdominal pain is generalized. Denies any blood in her stool. Medical history: HTN, DM, dialysis. Social history denies. Surgical history denies. ROS All systems reviewed and are negative except as per history of present illness. Medications Home Meds Active Scripts Ondansetron (Ondansetron Odt) 4 Mg Tab.rapdis, 4 MG PO Q6H PRN for NAUSEA AND/OR VOMITING, #10 TAB Prov:TON ALMEIDA PA-C 01/16/19 Benzonatate* (Tessalon Perle*) 100 Mg Capsule, 100 MG PO Q8H PRN for COUGH, #30 CAP Prov:LIAN ROJAS MD 10/25/18 Reported Medications Hydralazine Hcl* (Hydralazine Hcl*) 25 Mg Tab, 75 MG PO TID, #90 TAB 10/12/18 Linagliptin (TRADJENTA) 5 Mg Tablet, 5 MG PO DAILY, TAB 10/12/18 Metoprolol Succinate* (Toprol XL*) 50 Mg Tab.er.24h, 50 MG PO DAILY, #30 TAB 10/12/18 Calcium Acetate* (Calcium Acetate*) 667 Mg Capsule, 1334 MG PO WITH MEALS, #60 CAP 10/12/18 Folic Acid* (Folic Acid*) 1 Mg Tablet, 1 MG PO DAILY, TAB 10/12/18 Docusate Sodium* (Colace*) 100 Mg Capsule, 100 MG PO DAILY, #30 CAP 10/12/18 Pantoprazole* (Protonix*) 40 Mg Tablet.dr, 40 MG PO DAILY, TAB 10/04/18 Cholecalciferol* (Vitamin D*) 400 Unit Tablet, 400 UNIT PO BID, TAB 10/04/18 Allergies Allergies: Coded Allergies: No Known Allergy (Unverified , 11/28/18) PMhx/Soc History of Surgery: Yes (PACEMAKER, R FISTULA, HYST) Anesthesia Reaction: No Hx Neurological Disorder: No Hx Respiratory Disorders: No Hx Cardiac Disorders: Yes (HTN) Hx Psychiatric Problems: No Hx Miscellaneous Medical Probl: Yes (ESRD/DIALYSIS, OVARIAN CA, DM, HIGH BROOK) Hx Alcohol Use: No Hx Substance Use: No Hx Tobacco Use: No Smoking Status: Never smoker FmHx Family History: No diabetes, No coronary disease, No other Physical Exam Vitals Vital Signs Date Temp Pulse Resp B/P (MAP) Pulse Ox O2 O2 Flow FiO2 Time Delivery Rate 01/16/19 99.2 80 19 163/77 95 12:01 (105) Physical Exam GENERAL: The patient is well-appearing, well-nourished, in no acute distress HEENT: Atraumatic. Conjunctivae are pink. Pupils equal, round, and reactive to light. There is no scleral icterus. Tympanic membranes clear bilaterally. Oropharynx clear. CHEST: Clear to auscultation bilaterally. There are no rales, wheezes or rhonchi. HEART: Regular rate and rhythm. No murmurs, clicks, rubs or gallops. ABDOMEN:Soft, nontender and nondistended. Good bowel sounds. No rebound or guarding. No gross peritonitis. No gross organomegaly or masses. Result Diagram: 01/16/19 1300 01/16/19 1300 Results 24 hrs Laboratory Tests Test 01/16/19 13:00 01/16/19 13:35 White Blood Count 9.5 10^3/ul Red Blood Count 3.98 10^6/ul Hemoglobin 12.5 g/dl Hematocrit 39.4 % Mean Corpuscular Volume 99.0 fl Mean Corpuscular Hemoglobin 31.4 pg Mean Corpuscular Hemoglobin Concent 31.7 g/dl Red Cell Distribution Width 14.4 % Platelet Count 165 10^3/UL Mean Platelet Volume 11.4 fl Immature Granulocytes % 0.200 % Neutrophils % 72.5 % Lymphocytes % 9.0 % Monocytes % 11.8 % Eosinophils % 6.2 % Basophils % 0.3 % Nucleated Red Blood Cells % 0.0 /100WBC Immature Granulocytes # 0.020 10^3/ul Neutrophils # 6.9 10^3/ul Lymphocytes # 0.9 10^3/ul Monocytes # 1.1 10^3/ul Eosinophils # 0.6 10^3/ul Basophils # 0.0 10^3/ul Nucleated Red Blood Cells # 0.0 10^3/ul Sodium Level 139 mmol/L Potassium Level 5.3 mmol/L Chloride Level 99 mmol/L Carbon Dioxide Level 25 mmol/L Anion Gap 15 Blood Urea Nitrogen 54 mg/dl Creatinine 8.53 mg/dl Est Glomerular Filtrat Rate mL/min 5 mL/min Glucose Level 144 mg/dl Calcium Level 9.0 mg/dl Total Bilirubin 0.3 mg/dl Direct Bilirubin 0.00 mg/dl Indirect Bilirubin 0.3 mg/dl Aspartate Amino Transf (AST/SGOT) 36 IU/L Alanine Aminotransferase (ALT/SGPT) 15 IU/L Alkaline Phosphatase 95 IU/L Total Protein 8.9 g/dl Albumin 4.5 g/dl Globulin 4.40 g/dl Albumin/Globulin Ratio 1.02 POC Venous Lactate 0.9 mmol/L Current Medications Medications Dose Sig/Amita Start Time Status Last (Trade) Ordered Route PRN Stop Time Admin Dose Reason Admin Ondansetron 4 mg ONCE STAT 01/16/19 DC 01/16/19 HCl (Zofran ODT 12:45 13:02 Odt) 01/16/19 12:46 Procedures/MDM MDM: 68-year-old female presenting with generalized abdominal pain and diarrhea. I have low suspicion for infectious process. Patient's blood work is within no rmal limits. Patient is discharged with strict ER precautions and told to follow-up with primary care within 1 to 2 days for close evaluation. Patient's blood work does not appear to show signs of worsening kidney function and electrolyte imbalance. Patient is stable for outpatient management. I do not feel scans are indicated. Patient is discharged with strict ER precautions and told to follow-up with primary care within 1 to 2 days for close evaluation. All questions answered at discharge Departure Diagnosis: Primary Impression: Diarrhea Condition: Stable Patient Instructions: Self-Care for Vomiting and Diarrhea Referrals: JEFF RAMOS MD (PCP) Additional Instructions: FOLLOW UP WITH YOUR PRIMARY CARE PHYSICIAN TOMORROW.Return to this facility if you are not improving as expected. TON ALMEIDA PA-C Jan 16, 2019 15:10
== END 2019-01-16 15:31 | disposition home or self-care (01) ==
LOC: FTE 11:59
DX: R19.7 Diarrhea, unspecified (principal); I10 Essential (primary) hypertension; E11.9 Type 2 diabetes mellitus without complications; Z85.43 Personal history of malignant neoplasm of ovary; Z95.0 Presence of cardiac pacemaker
CPT/HCPCS: 80053; 83605; 85025; 99283

== ENCOUNTER 2019-01-28 16:28 | Emergency (ER) | payer MEDICARE, OTHER ==
[~2019-01-28] VITALS: Ht 172.7 cm; Wt 90.0 kg
[~2019-01-28 16:28] MED LIST changes: +ONDA4TAB14 PO
[2019-01-28 16:32] VITALS: Ht 172.7 cm; Wt 90.0 kg
--- NOTE | 2019-01-28 18:00 | ERD ---
ER Documentation Chief Complaint Chief Complaint diarrhea HPI The patient is a 68-year-old female, presenting to the ER because of recurrent diarrhea today, she had 2 bowel movement prior to arrival, denies hematemesis, hematochezia. She denies fever, chills, neck pain, chest pain, dyspnea, abdominal pain, vomiting, dysuria. She does not smoke nor drink Past medical history: Hypertension, CAD, chronic kidney disease on hemodialysis Monday and Monday, history of ovarian cancer, treated with chemotherapy and radiation therapy, diabetes mellitus, dyslipidemia Past surgical history: Pacemaker, hysterectomy, right upper extremity AV fistula ROS All systems reviewed and are negative except as per history of present illness. Medications Home Meds Active Scripts Ondansetron (Ondansetron Odt) 4 Mg Tab.rapdis, 4 MG PO Q6H PRN for NAUSEA AND/OR VOMITING, #10 TAB Prov:MK DUGGAN MD 01/28/19 Loperamide Hcl* (Imodium*) 2 Mg Capsule, 2 MG PO .AFTER EA LOOSE BM PRN for DIARRHEA, #20 TAB Prov:MK DUGGAN MD 01/28/19 Ondansetron (Ondansetron Odt) 4 Mg Tab.rapdis, 4 MG PO Q6H PRN for NAUSEA AND/OR VOMITING, #10 TAB Prov:TON ALMEIDA PA-C 01/16/19 Benzonatate* (Tessalon Perle*) 100 Mg Capsule, 100 MG PO Q8H PRN for COUGH, #30 CAP Prov:LIAN ROJAS MD 10/25/18 Reported Medications Hydralazine Hcl* (Hydralazine Hcl*) 25 Mg Tab, 75 MG PO TID, #90 TAB 10/12/18 Linagliptin (TRADJENTA) 5 Mg Tablet, 5 MG PO DAILY, TAB 10/12/18 Metoprolol Succinate* (Toprol XL*) 50 Mg Tab.er.24h, 50 MG PO DAILY, #30 TAB 10/12/18 Calcium Acetate* (Calcium Acetate*) 667 Mg Capsule, 1334 MG PO WITH MEALS, #60 CAP 10/12/18 Folic Acid* (Folic Acid*) 1 Mg Tablet, 1 MG PO DAILY, TAB 10/12/18 Docusate Sodium* (Colace*) 100 Mg Capsule, 100 MG PO DAILY, #30 CAP 10/12/18 Pantoprazole* (Protonix*) 40 Mg Tablet.dr, 40 MG PO DAILY, TAB 10/04/18 Cholecalciferol* (Vitamin D*) 400 Unit Tablet, 400 UNIT PO BID, TAB 10/04/18 Allergies Allergies: Coded Allergies: No Known Allergy (Unverified , 11/28/18) PMhx/Soc History of Surgery: Yes (PACEMAKER, R FISTULA, HYST) Anesthesia Reaction: No Hx Neurological Disorder: No Hx Respiratory Disorders: No Hx Cardiac Disorders: Yes (HTN) Hx Psychiatric Problems: No Hx Miscellaneous Medical Probl: Yes (ESRD/DIALYSIS, OVARIAN CA, DM, HIGH BROOK) Hx Alcohol Use: No Hx Substance Use: No Hx Tobacco Use: No Physical Exam Vitals Vital Signs Date Temp Pulse Resp B/P (MAP) Pulse Ox O2 O2 Flow FiO2 Time Delivery Rate 01/28/19 91 17 174/100 96 Room Air 19:33 (124) 01/28/19 99.1 79 18 148/80 96 Room Air 18:27 (102) 01/28/19 99.1 82 18 147/78 95 16:32 (101) Physical Exam Const: No acute distress. Head: Atraumatic. Eyes: Normal Conjunctiva. ENT: Normal External Ears, Nose and Mouth. Neck: Full range of motion. No meningismus. Resp: Clear to auscultation bilaterally. Cardio: Regular rate and rhythm. Abd: Soft, non distended, normal bowel sounds, non tender. Skin: No petechiae or rashes. Back: No midline or flank tenderness. Ext: No cyanosis, or edema. Neur: Awake and alert. No focal deficit Psych: Normal Mood and Affect. Result Diagram: 01/28/19 1831 01/28/19 1831 Results 24 hrs Laboratory Tests Test 01/28/19 18:29 01/28/19 18:31 Bedside Glucose 121 mg/dL White Blood Count 13.4 10^3/ul Red Blood Count 3.47 10^6/ul Hemoglobin 10.7 g/dl Hematocrit 33.6 % Mean Corpuscular Volume 96.8 fl Mean Corpuscular Hemoglobin 30.8 pg Mean Corpuscular Hemoglobin Concent 31.8 g/dl Red Cell Distribution Width 14.3 % Platelet Count 172 10^3/UL Mean Platelet Volume 10.2 fl Immature Granulocytes % 0.700 % Neutrophils % 75.6 % Lymphocytes % 10.6 % Monocytes % 9.4 % Eosinophils % 3.4 % Basophils % 0.3 % Nucleated Red Blood Cells % 0.0 /100WBC Immature Granulocytes # 0.090 10^3/ul Neutrophils # 10.1 10^3/ul Lymphocytes # 1.4 10^3/ul Monocytes # 1.3 10^3/ul Eosinophils # 0.5 10^3/ul Basophils # 0.0 10^3/ul Nucleated Red Blood Cells # 0.0 10^3/ul Sodium Level 137 mmol/L Potassium Level 4.7 mmol/L Chloride Level 100 mmol/L Carbon Dioxide Level 24 mmol/L Anion Gap 13 Blood Urea Nitrogen 33 mg/dl Creatinine 9.77 mg/dl Est Glomerular Filtrat Rate mL/min 4 mL/min Glucose Level 131 mg/dl Calcium Level 8.8 mg/dl Total Bilirubin 0.2 mg/dl Direct Bilirubin 0.00 mg/dl Indirect Bilirubin 0.2 mg/dl Aspartate Amino Transf (AST/SGOT) 43 IU/L Alanine Aminotransferase (ALT/SGPT) 23 IU/L Alkaline Phosphatase 105 IU/L Total Protein 8.2 g/dl Albumin 3.9 g/dl Globulin 4.30 g/dl Albumin/Globulin Ratio 0.90 Lipase 459 U/L Current Medications Medications Dose Sig/Amita Start Time Status Last (Trade) Ordered Route PRN Stop Time Admin Dose Reason Admin Loperamide 4 mg ONCE ONCE 01/28/19 DC 01/28/19 HCl PO 18:30 18:25 (Imodium Cap) 01/28/19 18:31 Ondansetron 4 mg ONCE STAT 01/28/19 Cancel HCl (Zofran IV 19:39 Inj) 01/28/19 19:40 Ondansetron 4 mg ONCE STAT 01/28/19 DC 01/28/19 HCl (Zofran ODT 19:48 20:10 Odt) 01/28/19 19:49 Procedures/MDM MEDICAL MAKING DECISION: The patient is a 68-year-old female, presenting with acute diarrhea of unclear etiology, was treated with Imodium 4 mg p.o. for diarrhea and Zofran ODT for nausea with good response, is stable for outpatient follow-up The differential diagnoses considered include but are not limited to food poi soning, C. difficile colitis, cholelithiasis, cholecystitis, choledocholithiasis, cholangitis, pancreatitis, hepatitis, gastritis, peptic ulcer disease, gastric ulcer, appendicitis, cystitis, diverticulitis, partial small bowel obstruction. Departure Diagnosis: Primary Impression: Diarrhea Additional Impression: Anemia Condition: Good Comments I discussed the findings with the patient. I advised the patient to follow-up with the primary physician in about 1-2 days, sooner if needed and return if any concern. Disclaimer: Inadvertent spelling and grammatical errors are likely due to EHR/dictation software use and do not reflect on the overall quality of patient care. Also, please note that the electronic time recorded on this note does not necessarily reflect the actual time of the patient encounter. MK DUGGAN MD Jan 28, 2019 18:00
[2019-01-28] MEDS ORDERED: LOPERAMIDE 2 MG CAP PO ONE (18:30)
[2019-01-28 19:33] VITALS: BP 174/100; PULSE 91; RESP 17
[2019-01-28] MEDS ORDERED: LOPE2CAP PO (19:35)
[2019-01-28] MEDS ORDERED: ONDANSETRON 4 MG INJ IV STA (19:39)
[2019-01-28] MEDS ORDERED: ONDA4TAB14 PO (19:40)
[2019-01-28] MEDS ORDERED: ONDANSETRON (ODT) 4 MG TAB ODT STA (19:48)
== END 2019-01-28 20:11 | disposition home or self-care (01) ==
LOC: E/R 16:28
DX: R19.7 Diarrhea, unspecified (principal); N18.6 End stage renal disease; I12.0 Hypertensive chronic kidney disease with stage 5 chronic kidney disease or end stage renal disease; D64.9 Anemia, unspecified; E11.22 Type 2 diabetes mellitus with diabetic chronic kidney disease; I25.10 Atherosclerotic heart disease of native coronary artery without angina pectoris; Z99.2 Dependence on renal dialysis; Z85.43 Personal history of malignant neoplasm of ovary; Z79.84 Long term (current) use of oral hypoglycemic drugs
CPT/HCPCS: 36415; 80053; 82962; 83690; 85025; 99283

== ENCOUNTER 2019-02-04 14:12 | Emergency (ER) | payer MEDICARE, OTHER ==
[~2019-02-04] VITALS: Ht 170.2 cm; Wt 88.5 kg
[~2019-02-04 14:12] MED LIST changes: +LOPE2CAP PO
[2019-02-04 14:18] VITALS: Ht 170.2 cm; Wt 88.5 kg
--- NOTE | 2019-02-04 16:33 | ERD ---
ER Documentation Chief Complaint Chief Complaint hit on forehead with 5lb bag of floor last week. HPI 68-year-old female with history of multiple medical problems including end-stage renal disease on hemodialysis, diabetes, ovarian cancer, presents to the emergency department, complaining of right frontal painful rash that started yesterday and the patient thinks that it was caused after a 5 pounds bag of flour fell onto her head 1 week ago. The pain is burning, sharp, associated with surrounding tingling. No blurred vision, no foreign body sensation in the right eye. ROS All systems reviewed and are negative except as per history of present illness. Medications Home Meds Active Scripts Hydrocodone/Acetaminophen ([place] 5-325 Tablet) 1 Each Tablet, 1 TAB PO TID PRN for PAIN, #12 TAB Prov:CHIQUITA JAVED MD 02/04/19 Acyclovir* (Zovirax*) 800 Mg Tablet, 800 MG PO 5 TIMES DAILY for 7 Days, TAB Prov:CHIQUITA JAVED MD 02/04/19 Ondansetron (Ondansetron Odt) 4 Mg Tab.rapdis, 4 MG PO Q6H PRN for NAUSEA AND/OR VOMITING, #10 TAB Prov:MK DUGGAN MD 01/28/19 Loperamide Hcl* (Imodium*) 2 Mg Capsule, 2 MG PO .AFTER EA LOOSE BM PRN for DIARRHEA, #20 TAB Prov:MK DUGGAN MD 01/28/19 Ondansetron (Ondansetron Odt) 4 Mg Tab.rapdis, 4 MG PO Q6H PRN for NAUSEA AND/OR VOMITING, #10 TAB Prov:TON ALMEIDA PA-C 01/16/19 Benzonatate* (Tessalon Perle*) 100 Mg Capsule, 100 MG PO Q8H PRN for COUGH, #30 CAP Prov:LIAN ROJAS MD 10/25/18 Reported Medications Hydralazine Hcl* (Hydralazine Hcl*) 25 Mg Tab, 75 MG PO TID, #90 TAB 10/12/18 Linagliptin (TRADJENTA) 5 Mg Tablet, 5 MG PO DAILY, TAB 10/12/18 Metoprolol Succinate* (Toprol XL*) 50 Mg Tab.er.24h, 50 MG PO DAILY, #30 TAB 10/12/18 Calcium Acetate* (Calcium Acetate*) 667 Mg Capsule, 1334 MG PO WITH MEALS, #60 CAP 10/12/18 Folic Acid* (Folic Acid*) 1 Mg Tablet, 1 MG PO DAILY, TAB 10/12/18 Docusate Sodium* (Colace*) 100 Mg Capsule, 100 MG PO DAILY, #30 CAP 10/12/18 Pantoprazole* (Protonix*) 40 Mg Tablet.dr, 40 MG PO DAILY, TAB 10/04/18 Cholecalciferol* (Vitamin D*) 400 Unit Tablet, 400 UNIT PO BID, TAB 10/04/18 Allergies Allergies: Coded Allergies: No Known Allergy (Unverified , 11/28/18) PMhx/Soc History of Surgery: Yes (PACEMAKER, R FISTULA, HYST) Anesthesia Reaction: No Hx Neurological Disorder: No Hx Respiratory Disorders: No Hx Cardiac Disorders: Yes (HTN) Hx Psychiatric Problems: No Hx Miscellaneous Medical Probl: Yes (ESRD/DIALYSIS, OVARIAN CA, DM, HIGH BROOK) Hx Alcohol Use: No Hx Substance Use: No Hx Tobacco Use: No Smoking Status: Never smoker FmHx Family History: diabetes Physical Exam Vitals Vital Signs Date Temp Pulse Resp B/P (MAP) Pulse Ox O2 O2 Flow FiO2 Time Delivery Rate 02/04/19 97.9 99 20 165/75 94 14:18 (105) Physical Exam Const: No acute distress Head: coalescent vesicular rash, well-demarcated, approximately 1.5 cm in diameter, located above the right eyebrow. Eyes: Normal Conjunctiva, no corneal lesions. ENT: Normal External Ears, Nose and Mouth. Neck: Full range of motion. No meningismus. Resp: Clear to auscultation bilaterally Cardio: Regular rate and rhythm, no murmurs Abd: Soft, non tender, non distended. Normal bowel sounds Skin: No petechiae or rashes Back: No midline or flank tenderness Ext: No cyanosis, or edema Neur: Awake and alert Psych: Normal Mood and Affect Procedures/MDM Differential diagnosis include but not limited to: Contact dermatitis, shingles, HSV infection, cellulitis, insect bite, scabies. impetigo. Physical examination and clinical presentation consistent most likely with HSV infection, I doubt shingles because of the anatomy of the rash. No ocular involvement. During the ED course the patient remained stable, no new complaints. Results and clinical impression discussed with patient who agrees with managem ent. The patient is stable to be treated outpatient and will be discharged home with a Rx for acyclovir, some side effects of prescribed medications (headache, rash, nausea, vomiting, diarrhea, drowsiness, habituation, bleeding, hypertension, interactions with other medications) were reviewed. The patient was instructed to follow up with the primary care provider in the next 48h. If symptoms persist, worsen or new symptoms develop, then patient should return to the ED immediately. Instructions explained and given directly by me to the patient with acknowledgment and demonstrated understanding. Disclaimer: Inadvertent spelling and grammatical errors are likely due to EHR/dictation software use and do not reflect on the overall quality of patient care. Also, please note that the electronic time recorded on this note does not necessarily reflect the actual time of the patient encounter. Departure Diagnosis: Primary Impression: HSV (herpes simplex virus) infection Condition: Stable Additional Instructions: Thank you very much for allowing us to participate in your care. Your health and safety is our top priority at [facility]. The evaluation in the emergency department has been done to rule out an acute emergency. Chronic, [id number] conditions may have not been evaluated; therefore, you need to follow up with a primary care provider in the next 48h. If symptoms persist, worsen or new symptoms develop, then patient should return to the ED immediately. Call your primary care doctor TOMORROW for an appointment during the next 2-4 days and bring all the information provided. Have prescriptions filled and follow precisely the directions on the label. If the symptoms get worse and your provider is unavailable, return to the Emergency Department immediately. Is good for you CHIQUITA JAVED MD Feb 04, 2019 16:33
[2019-02-04] MEDS ORDERED: HYDR-4011 PO (16:37)
[2019-02-04] MEDS ORDERED: ACYC800T5 PO (16:37)
[2019-02-04 16:55] VITALS: BP 181/79; PULSE 83; RESP 18
== END 2019-02-04 16:56 | disposition home or self-care (01) ==
LOC: FTE 14:12
DX: B00.9 Herpesviral infection, unspecified (principal); E11.22 Type 2 diabetes mellitus with diabetic chronic kidney disease; N18.6 End stage renal disease; I12.0 Hypertensive chronic kidney disease with stage 5 chronic kidney disease or end stage renal disease; Z85.43 Personal history of malignant neoplasm of ovary; Z99.2 Dependence on renal dialysis
CPT/HCPCS: 99283

== ENCOUNTER 2019-02-06 09:11 | Emergency (ER) | payer MEDICARE, OTHER ==
[~2019-02-06] VITALS: Ht 172.7 cm; Wt 88.0 kg
[~2019-02-06 09:11] MED LIST changes: +ACYC800T5 PO; +HYDR-4011 PO
[2019-02-06 09:12] VITALS: Ht 172.7 cm; Wt 88.0 kg
[2019-02-06] MEDS ORDERED: CEPH-443 PO (10:58)
--- NOTE | 2019-02-06 11:00 | ERD ---
ER Documentation Chief Complaint Chief Complaint here last monday, 5 llbs object fell on her head, has left eyelid swelling HPI 68-year-old female presents the emergency department complaining of swelling around her right eye. Patient was in her normal state of health until about 5 days ago when a 5 pound pack of flour fell on her head. She did not lose consciousness and has had no significant headache. However, she developed a injury around her right eye. She was evaluated by a provider who diagnosed possible shingles and placed her on acyclovir. Despite this intervention, she continues to have pain and swelling and some redness around that area. She reports no severe headache, no focal weakness or numbness, no fever. ROS All systems reviewed and are negative except as per history of present illness. Medications Home Meds Active Scripts Cephalexin* (Keflex*) 500 Mg Capsule, 500 MG PO QID for 5 Days, CAP Prov:ROSELINE TOVAR 02/06/19 Hydrocodone/Acetaminophen ([place] 5-325 Tablet) 1 Each Tablet, 1 TAB PO TID PRN for PAIN, #12 TAB Prov:CHIQUITA JAVED MD 02/04/19 Acyclovir* (Zovirax*) 800 Mg Tablet, 800 MG PO 5 TIMES DAILY for 7 Days, TAB Prov:CHIQUITA JAVED MD 02/04/19 Ondansetron (Ondansetron Odt) 4 Mg Tab.rapdis, 4 MG PO Q6H PRN for NAUSEA AND/OR VOMITING, #10 TAB Prov:MK DUGGAN MD 01/28/19 Loperamide Hcl* (Imodium*) 2 Mg Capsule, 2 MG PO .AFTER EA LOOSE BM PRN for DIARRHEA, #20 TAB Prov:MK DUGGAN MD 01/28/19 Ondansetron (Ondansetron Odt) 4 Mg Tab.rapdis, 4 MG PO Q6H PRN for NAUSEA AND/OR VOMITING, #10 TAB Prov:TON ALMEIDA PA-C 01/16/19 Benzonatate* (Tessalon Perle*) 100 Mg Capsule, 100 MG PO Q8H PRN for COUGH, #30 CAP Prov:LIAN ROJAS MD 10/25/18 Reported Medications Hydralazine Hcl* (Hydralazine Hcl*) 25 Mg Tab, 75 MG PO TID, #90 TAB 10/12/18 Linagliptin (TRADJENTA) 5 Mg Tablet, 5 MG PO DAILY, TAB 10/12/18 Metoprolol Succinate* (Toprol XL*) 50 Mg Tab.er.24h, 50 MG PO DAILY, #30 TAB 10/12/18 Calcium Acetate* (Calcium Acetate*) 667 Mg Capsule, 1334 MG PO WITH MEALS, #60 CAP 10/12/18 Folic Acid* (Folic Acid*) 1 Mg Tablet, 1 MG PO DAILY, TAB 10/12/18 Docusate Sodium* (Colace*) 100 Mg Capsule, 100 MG PO DAILY, #30 CAP 10/12/18 Pantoprazole* (Protonix*) 40 Mg Tablet.dr, 40 MG PO DAILY, TAB 10/04/18 Cholecalciferol* (Vitamin D*) 400 Unit Tablet, 400 UNIT PO BID, TAB 10/04/18 Allergies Allergies: Coded Allergies: No Known Allergy (Unverified , 11/28/18) PMhx/Soc History of Surgery: Yes (PACEMAKER, R FISTULA, HYST) Anesthesia Reaction: No Hx Neurological Disorder: No Hx Respiratory Disorders: No Hx Cardiac Disorders: Yes (HTN) Hx Psychiatric Problems: No Hx Miscellaneous Medical Probl: Yes (ESRD/DIALYSIS, OVARIAN CA, DM, HIGH BROOK) Hx Alcohol Use: No Hx Substance Use: No Hx Tobacco Use: No Smoking Status: Never smoker Physical Exam Vitals Vital Signs Date Temp Pulse Resp B/P (MAP) Pulse Ox O2 O2 Flow FiO2 Time Delivery Rate 02/06/19 98.5 68 20 146/69 93 Room Air 09:37 (94) 02/06/19 98.5 67 20 147/66 93 09:12 (93) Physical Exam General: well developed, well nourished, in no distress. Neuro: Normal speech, gait, balance HEENT: Patient has evidence of what appears to be a slight abrasion above the right eye. There is minimal cellulitic changes. I do not appreciate any evidence of shingles at this time including no evidence inside the cornea or on the tip of the nose. The globe itself appears to be intact without trauma or proptosis. Extraocular wounds are intact without limitation full range of motion. Patient has no diplopia. Departure Diagnosis: Primary Impression: Facial cellulitis Condition: Stable Patient Instructions: Impetigo Additional Instructions: See your doctor for follow-up as discussed. Take a copy of your test results, if appropriate, to this follow-up visit. See your doctor or return here if your symptoms do not improve as expected. At any time, please return to the emergency department for any change or worsening in her symptoms. ROSELINE TOVAR Feb 06, 2019 11:00
[2019-02-06 11:05] VITALS: BP 141/69; PULSE 78; RESP 16
== END 2019-02-06 11:09 | disposition home or self-care (01) ==
LOC: E/R 09:11
DX: S00.81XA Abrasion of other part of head, initial encounter (principal); L03.211 Cellulitis of face; I12.0 Hypertensive chronic kidney disease with stage 5 chronic kidney disease or end stage renal disease; N18.6 End stage renal disease; E11.22 Type 2 diabetes mellitus with diabetic chronic kidney disease; W20.8XXA Other cause of strike by thrown, projected or falling object, initial encounter; Y92.9 Unspecified place or not applicable; Z99.2 Dependence on renal dialysis; Z85.43 Personal history of malignant neoplasm of ovary
CPT/HCPCS: 70450

== ENCOUNTER 2019-02-20 23:27 | Inpatient (IN) | payer MEDICARE, OTHER ==
[~2019-02-20] VITALS: Ht 172.7 cm; Wt 89.2 kg
[~2019-02-20 23:27] MED LIST changes: +CEPH-443 PO; +CLOP75TA28 PO; +DIPH50CA30 PO; +GABA100C14 PO; +NEPH PO; +VALA500T PO
[2019-02-20 23:48] VITALS: Ht 172.7 cm; Wt 89.2 kg
[2019-02-21] VITALS (15 sets, daily range): BP systolic 143–191; BP diastolic 70–110; PULSE 62–105; RESP 18–19
[2019-02-21] MEDS ORDERED: SOD CHLORIDE 0.9% 500 ML IV STA (00:16)
[2019-02-21] MEDS ORDERED: CEFTRIAXONE 1 GM/50 ML (PMX) 50 ML IVPB STA (02:52)
[2019-02-21] MEDS ORDERED: AZITHROMYCIN 500MG/NS (PMX) 250 ML IV STA (02:52)
[2019-02-21] MEDS ORDERED: ACETAMINOPHEN 325 MG TAB PO PRN (03:30)
[2019-02-21] MEDS ORDERED: ONDANSETRON 4 MG INJ IV PRN (03:30)
--- NOTE | 2019-02-21 03:38 | ERD ---
ER Documentation Chief Complaint Chief Complaint BIB RA for htn and headache, more lethargic HPI Is a 68 female brought in by rescue with complaints of hypertension and lethargy and generalized weakness. Per the family she is been lethargic this week and had complaints of generalized weakness but has been nonfocal neurologically. Branches that she has been treated for shingles recently. Denies any nausea or vomiting. Patient answers questions appropriately ROS All systems reviewed and are negative except as per history of present illness. Medications Home Meds Active Scripts Hydrocodone/Acetaminophen ([place] 5-325 Tablet) 1 Each Tablet, 1 TAB PO TID PRN for PAIN, #12 TAB Prov:CHIQUITA JAVED MD 02/04/19 Ondansetron (Ondansetron Odt) 4 Mg Tab.rapdis, 4 MG PO Q6H PRN for NAUSEA AND/OR VOMITING, #10 TAB Prov:MK DUGGAN MD 01/28/19 Loperamide Hcl* (Imodium*) 2 Mg Capsule, 2 MG PO .AFTER EA LOOSE BM PRN for SUKHJINDER RRHEA, #20 TAB Prov:MK DUGGAN MD 01/28/19 Ondansetron (Ondansetron Odt) 4 Mg Tab.rapdis, 4 MG PO Q6H PRN for NAUSEA AND/OR VOMITING, #10 TAB Prov:TON ALMEIDA PA-C 01/16/19 Reported Medications Multivit/Ca Carb/B Cmplx/Fa* (Shanti-Horacio*) 1 Tab Tab, 1 TAB PO DAILY for 30 Days, #30 02/21/19 Clopidogrel Bisulfate (Clopidogrel) 75 Mg Tablet, 75 MG PO DAILY for 60 Days, #60 TAB 02/21/19 Gabapentin* (Gabapentin*) 100 Mg Capsule, 100 MG PO BID for 30 Days, #60 02/21/19 Diphenhydramine Hcl (BANOPHEN) 50 Mg Capsule, 50 MG PO DAILY PRN for ALLERGIC REACTION 02/21/19 valAcyclovir Hcl* (valACYclovir Hcl*) 500 Mg Tablet, 1000 MG PO TID, TAB 02/21/19 Hydralazine Hcl* (Hydralazine Hcl*) 25 Mg Tab, 75 MG PO TID, #90 TAB 10/12/18 Linagliptin (TRADJENTA) 5 Mg Tablet, 5 MG PO DAILY, TAB 10/12/18 Metoprolol Succinate* (Toprol XL*) 50 Mg Tab.er.24h, 50 MG PO DAILY, #30 TAB 10/12/18 Calcium Acetate* (Calcium Acetate*) 667 Mg Capsule, 1334 MG PO WITH MEALS, #60 CAP 10/12/18 Folic Acid* (Folic Acid*) 1 Mg Tablet, 1 MG PO DAILY, TAB 10/12/18 Docusate Sodium* (Colace*) 100 Mg Capsule, 100 MG PO DAILY, #30 CAP 10/12/18 Pantoprazole* (Protonix*) 40 Mg Tablet.dr, 40 MG PO DAILY, TAB 10/04/18 Cholecalciferol* (Vitamin D*) 400 Unit Tablet, 400 UNIT PO BID, TAB 10/04/18 Discontinued Scripts Cephalexin* (Keflex*) 500 Mg Capsule, 500 MG PO QID for 5 Days, CAP Prov:ROSELINE TOVAR 02/06/19 Acyclovir* (Zovirax*) 800 Mg Tablet, 800 MG PO 5 TIMES DAILY for 7 Days, TAB Prov:CHIQUITA JAVED MD 02/04/19 Benzonatate* (Tessalon Perle*) 100 Mg Capsule, 100 MG PO Q8H PRN for COUGH, #30 CAP Prov:LIAN ROJAS MD 10/25/18 Allergies Allergies: Coded Allergies: No Known Allergy (Unverified , 02/21/19) PMhx/Soc History of Surgery: Yes (PACEMAKER, R FISTULA, HYST) Anesthesia Reaction: No Hx Neurological Disorder: No Hx Respiratory Disorders: No Hx Cardiac Disorders: Yes (HTN) Hx Psychiatric Problems: No Hx Miscellaneous Medical Probl: Yes (ESRD/DIALYSIS, OVARIAN CA, DM, HIGH BROOK) Hx Alcohol Use: No Hx Substance Use: No Hx Tobacco Use: No Physical Exam Vitals Vital Signs Date Temp Pulse Resp B/P (MAP) Pulse Ox O2 O2 Flow FiO2 Time Delivery Rate 02/21/19 Nasal 2 00:37 Cannula 02/20/19 98.3 95 18 163/98 100 23:48 (119) Physical Exam Const: No acute distress Head: Atraumatic Eyes: Normal Conjunctiva ENT: Normal External Ears, Nose and Mouth. Neck: Full range of motion. No meningismus. Resp: Clear to auscultation bilaterally Cardio: Regular rate and rhythm, no murmurs Abd: Soft, non tender, non distended. Normal bowel sounds Skin: No petechiae or rashes Back: No midline or flank tenderness Ext: No cyanosis, or edema Neur: Awake and alert Psych: Normal Mood and Affect Result Diagram: 02/21/19 0036 02/21/19 0036 Results 24 hrs Laboratory Tests Test 02/21/19 00:36 02/21/19 00:54 White Blood Count 11.0 10^3/ul Red Blood Count 3.18 10^6/ul Hemoglobin 9.8 g/dl Hematocrit 31.1 % Mean Corpuscular Volume 97.8 fl Mean Corpuscular Hemoglobin 30.8 pg Mean Corpuscular Hemoglobin Concent 31.5 g/dl Red Cell Distribution Width 15.7 % Platelet Count 262 10^3/UL Mean Platelet Volume 10.1 fl Immature Granulocytes % 0.600 % Neutrophils % 71.4 % Lymphocytes % 11.8 % Monocytes % 12.6 % Eosinophils % 3.3 % Basophils % 0.3 % Nucleated Red Blood Cells % 0.6 /100WBC Immature Granulocytes # 0.070 10^3/ul Neutrophils # 7.9 10^3/ul Lymphocytes # 1.3 10^3/ul Monocytes # 1.4 10^3/ul Eosinophils # 0.4 10^3/ul Basophils # 0.0 10^3/ul Nucleated Red Blood Cells # 0.1 10^3/ul Prothrombin Time 13.0 Sec Prothrombin Time Ratio 1.0 INR International Normalized Ratio 0.97 Activated Partial Thromboplast Time 35.7 Sec Sodium Level 137 mmol/L Potassium Level 4.3 mmol/L Chloride Level 99 mmol/L Carbon Dioxide Level 28 mmol/L Anion Gap 10 Blood Urea Nitrogen 43 mg/dl Creatinine 7.80 mg/dl Est Glomerular Filtrat Rate mL/min 5 mL/min Glucose Level 104 mg/dl Calcium Level 9.0 mg/dl Total Bilirubin 0.4 mg/dl Direct Bilirubin 0.00 mg/dl Indirect Bilirubin 0.4 mg/dl Aspartate Amino Transf (AST/SGOT) 30 IU/L Alanine Aminotransferase (ALT/SGPT) 13 IU/L Alkaline Phosphatase 59 IU/L Troponin I 0.026 ng/ml Total Protein 8.4 g/dl Albumin 3.8 g/dl Globulin 4.60 g/dl Albumin/Globulin Ratio 0.82 Salicylates Level < 1.0 mg/dl Acetaminophen Level < 10.0 ug/ml Ethyl Alcohol Level < 10.0 mg/dl POC Venous Lactate 0.9 mmol/L Current Medications Medications Dose Sig/Amita Start Time Status Last (Trade) Ordered Route PRN Stop Time Admin Dose Reason Admin Sodium 500 ml @ Q1H STAT 02/21/19 DC Chloride 500 mls/hr IV 00:16 02/21/19 01:15 Azithromycin 250 ml @ ONCE STAT 02/21/19 250 mls/hr IV 02:52 02/21/19 03:51 Ceftriaxone 50 ml @ ONCE STAT 02/21/19 DC Sodium 100 mls/hr IVPB 02:52 02/21/19 03:21 Ondansetron 4 mg ER BRIDGE 02/21/19 HCl (Zofran PRN IV 03:30 Inj) NAUSEA/VOMITI 02/22/19 03:29 NG 650 mg ER BRIDGE 02/21/19 Acetaminophen PRN PO 03:30 (Tylenol .MILD PAIN 02/22/19 03:29 Tab) 1-3 OR TEMP Procedures/MDM EKG: Rate/Rhythm: [Normal Sinus Rhythm] QRS, ST, T-waves: [No changes consistent w/ acute ischemia] Impression: [No evidence of ischemia or arrhythmia] Chest X-ray 1V Interpreted by me: Soft Tissue: No acute abnormalities Bones: No acute abnormalities Mediastinum/Cardiac Silhouette/Lungs: Right lower lobe pneumonia Medical decision making: This very pleasant 68-year female comes in with complaints of generalized weakness. She has evidence of pneumonia. Patient will be admitted for further evaluation and management to Dr. Moya Departure Diagnosis: Primary Impression: Pneumonia Pneumonia type: due to unspecified organism Laterality: unspecified laterality Lung location: unspecified part of lung Qualified Codes: J18.9 - Pneumonia, unspecified organism Condition: Serious DELMER GOODRICH Feb 21, 2019 03:38
[2019-02-21] MEDS ORDERED: AZITHROMYCIN 500 MG TAB PO ONE (09:00)
[2019-02-21] MEDS ORDERED: CEFTRIAXONE 1 GM INJ IM ONE (09:30)
[2019-02-21] MEDS ORDERED: ONDANSETRON (ODT) 4 MG TAB ODT PRN (10:00)
[2019-02-21] MEDS: ACCU-CHEK XX SCH ×3 (12:21→21:00)
--- NOTE | 2019-02-21 12:48 | CONS ---
DATE OF ADMISSION: 02/20/2019 DATE OF CONSULTATION: 02/21/2019 TYPE OF CONSULTATION: Infectious disease. REASON FOR CONSULTATION: Antibiotic management. HISTORY OF PRESENT ILLNESS: Yael Antoine is a 68-year-old female who was brought in for hypertensi on, headache and lethargy. The patient also complains of generalized weakness. Family notes that cristofer martinez has been lethargic this week and has had general weakness. She was treated for shingles recently b ut no longer has a problem related to that issue. PAST SURGICAL HISTORY: She has a pacemaker, a right-sided AV fistula and history of hysterectomy. S he has end-stage renal disease, diabetes mellitus, hypercholesterolemia, hypertension and history of ovarian cancer. FAMILY HISTORY: Noncontributory. SOCIAL HISTORY: She does not smoke, drink or abuse drugs. ALLERGIES: NONE TO PENICILLIN, SULFA OR FOODS. MEDICATIONS: Per chart. REVIEW OF SYSTEMS: As per HPI. PHYSICAL EXAMINATION: GENERAL: The patient is awake, responsive, in no acute distress. VITAL SIGNS: Stable. She is afebrile. SKIN: Without generalized rash. HEENT: Within normal limits. NECK: Supple. LYMPH NODES: None palpable. CHEST: Decreased breath sounds at the bases. HEART: Without murmur or gallop. ABDOMEN: Soft, nontender, without organosplenomegaly or masses. EXTREMITIES: Without cyanosis, clubbing, or edema. RECTAL AND GENITAL: Deferred. NEUROLOGIC: No focal neurological abnormalities. ANCILLARY LABORATORY DATA: Shows a white count of 11,000 with 71% neutrophils, H and H of 9.8/31.1, platelet count 262,000. BUN and creatinine 43/7.80. Chest x-ray shows right lower lobe pneumonia. IMPRESSION AND PLAN: Patient was started on azithromycin and ceftriaxone. Reason for her lethargy o bviously is that she is infected and has pneumonia and with some shortness of breath. We will contin ue her on this current regimen. I will dictate my findings to Drs. Leonardo and Griffin. Dictated By: LIDA GARBER MD, JD/VAL Conf#: [id number] DID#: [id number]
[2019-02-21] MEDS: CALCIUM ACETATE 667 MG CAP PO SCH ×2 (14:30→17:55)
[2019-02-21] MEDS: valACYclovir 500 MG TAB PO SCH ×2 (14:30→22:59)
--- NOTE | 2019-02-21 17:52 | QN ---
Documentation Comment pt maryam and examined and dictated ELIANA NEELY MD Feb 21, 2019 17:52
[2019-02-21] MEDS ORDERED: HYDROCODONE/APAP (5/325) TAB PO PRN (18:00)
[2019-02-21] MEDS: INSULIN ASPART [NOVOLOG] 3 ML PEN SC SCH (21:00)
[2019-02-21] MEDS: GABAPENTIN 100 MG CAP PO SCH (22:59)
[2019-02-22] VITALS: BP 150/74; PULSE 104; RESP 18
--- NOTE | 2019-02-22 00:41 | HP ---
DATE OF ADMISSION: 02/21/2019 REASON FOR ADMISSION: Lethargy. HISTORY OF PRESENT ILLNESS: This is a 68-year-old female, well known to our service, past medical hi story of end-stage renal disease on hemodialysis Monday, and Monday; hypertension, diabet es, pacemaker placement, atherosclerotic heart disease, CHF, pneumonia, with multiple admissions in t he past secondary to pneumonia, last in 10/2018, presented to the emergency department, as brought in by the family for increased lethargy for 2 to 3 days. According to the patient, she started having herpes lesion around her right eye 3 weeks ago. She has been treated with antivirals for 3 weeks. S he intermittently has headaches for the last 1 to 2 days. She has been noted to have increased judith rgy and was according to the was sleepy the whole day and was brought into the emergency depa rtment for further evaluation. Per patient, she denies any blurry vision, any nausea, vomiting, has been having headache and the upper lesions have been crusted in the lower lesions are still present. Patient denied any fevers. Denies any neck pain, any abdominal pain, nausea, vomiting, diarrhea and any shortness of breath. On arrival to ED, temperature was 98.3, blood pressure 138/83, pulse 89, s aturating 100% on 2 liters. White count 11.0, hemoglobin 9.8, platelet count 262. BUN of 43, creati nine 7.80. Patient had a CT of the head that showed no acute findings. Lactic acid was checked and was negative, was given azithromycin and Rocephin for pneumonia on the x-ray and was admitted for fur ther management. PAST MEDICAL HISTORY: 1. Endstage renal disease on hemodialysis Monday, and Monday. 2. Diabetes. 3. Hypertension. 4. Hyperlipidemia. 5. Atherosclerotic heart disease. 6. Congestive heart failure. 7. History of bronchiectasis. ALLERGY: NONE. PAST SURGICAL HISTORY: The patient had ovarian tumor removal, pacemaker and a right fistula creation . SOCIAL HISTORY: Denies any history of smoking, alcohol or any drug use. MEDICATIONS: Taking at home: 1. Benadryl. 2. Plavix 75. 3. Hydralazine 75 t.i.d. 4. Metoprolol 50. 5. Gabapentin 100 t.i.d. 6. [place] p.r.n. pain. 7. Calcium acetate. 8. Colace. 9. Imodium. 10. Zofran. 11. Protonix. 12. Tradjenta. FAMILY HISTORY: Noncontributory. REVIEW OF SYSTEMS: The patient complained of some headache. Denied any blurry vision. Denied any n ausea, vomiting, any neck pain. Denies any shortness of breath, any chest pain. Denies any focal ne urological deficit. PHYSICAL EXAMINATION: VITAL SIGNS: Currently blood pressure 156/74, temperature 98.4, heart rate 79, respirations 20, satu rating 96%. GENERAL: The patient is awake, alert, answering questions. HEENT: Patient has on the right upper side of the forehead, the upper lesions are somewhat crusted, the lower lesions near the eyelid are hyperpigmented and somewhat clustered, tenderness on palpation. No erythema. NECK: No nuchal rigidity. LUNGS: Decreased breath sounds bilaterally. ABDOMEN: Soft, nontender, nondistended, positive bowel sounds. EXTREMITIES: Left lower extremity edema. Patient also has a right upper extremity fistula with brui t and thrill. NEUROLOGIC: Awake, alert, oriented. Motor strength 5/5, bilateral upper and lower extremities. Sen sation is intact. LABORATORY DATA: White count 11.0, hemoglobin 9.8, white count ____, BUN of 43, creatinine 7.80. CT of the head is negative. Chest x-ray shows patchy left basilar opacity. ASSESSMENT AND PLAN: This is a 68-year-old woman, presented with: 1. Headaches. History of herpes around the right side of the forehead with some crusted lesions, so me not. The patient denies any blurry vision. The patient has mild leukocytosis. Currently, the pa tient does not have any evidence of any meningitis. 2. Basilar opacity with pneumonia. 3. Endstage renal disease, on hemodialysis. 4. Left lower extremity edema. 5. Rule out deep venous thrombosis. 6. Hypertension. 7. Diabetes. 8. Hyperlipidemia. 9. History of ovarian tumor. PLAN: At this period of time, the patient will be admitted to tele. ID has been consulted. The pat ient will be in contact airborne isolation. The patient will be treated for acyclovir. I spoke with ID about the possibility of meningitis; however, they do not think it could be. We will monitor her neuro status. Patient is on Rocephin and azithromycin. Rest of the treatment will depend on the yane pressley's hospitalization course. Dictated By: ELIANA GOMEZ/VAL Conf#: [id number] DID#: [id number]
[2019-02-22] MEDS: ACCU-CHEK XX SCH ×5 (01:05→21:00)
[2019-02-22 04:00] VITALS: BP 167/74; PULSE 61; RESP 18
[2019-02-22 07:29] VITALS: BP 158/68; PULSE 73; RESP 20
[2019-02-22] MEDS: INSULIN ASPART [NOVOLOG] 3 ML PEN SC SCH ×4 (07:55→21:00)
[2019-02-22] MEDS: AZITHROMYCIN 500 MG TAB PO SCH (08:18)
[2019-02-22] MEDS: CLOPIDOGREL 75 MG TAB PO SCH (08:19)
[2019-02-22] MEDS: GABAPENTIN 100 MG CAP PO SCH ×2 (08:19→22:14)
[2019-02-22] MEDS: LINAGLIPTIN 5 MG TABLET PO SCH (08:19)
[2019-02-22] MEDS: CALCIUM ACETATE 667 MG CAP PO SCH ×3 (08:19→17:36)
[2019-02-22] MEDS: DOCUSATE SODIUM 100 MG CAP PO SCH (08:19)
[2019-02-22] MEDS: FOLIC ACID 1 MG TAB PO SCH (08:19)
[2019-02-22] MEDS: CEFTRIAXONE 1 GM INJ IM SCH (08:20)
[2019-02-22] MEDS: valACYclovir 500 MG TAB PO SCH ×3 (08:20→22:14)
[2019-02-22] MEDS: METOPROLOL (XL) 50 MG TAB PO SCH (08:20)
[2019-02-22 11:26] VITALS: BP 145/71; PULSE 66; RESP 20
--- NOTE | 2019-02-22 14:12 | PN ---
Date/Time of Note Date/Time of Note DATE: 02/22/19 TIME: 14:05 Assessment/Plan VTE Prophylaxis Risk score (from Ns)>0 risk: 5 SCD applied (from [facility]): No SCD contraindicated: other Pharmacological prophylaxis: heparin Lines/Catheters IV [facility]atheter Type (from [facility]): Saline Lock Assessment/Plan Hospital Course 1. Headaches. History of herpes around the right side of the forehead with s ome crusted lesions, some not. The patient has mild leukocytosis. Currently, the patient does not have any evidence of any meningitis. 2. Basilar opacity with pneumonia. 3. Endstage renal disease, on hemodialysis. 4. Left lower extremity edema, resolved. 5. Rule out deep venous thrombosis. 6. Hypertension. 7. Diabetes. 8. Hyperlipidemia. 9. History of ovarian tumor. 10. Anemia of CD 11. Overweight 12. Hepatitis B Assessment/Plan -start Epogen dc airborne isolation per ID MD -ophthalmology consult called , ans, service . pt reported blurry vision - ID has been consulted. -pain control - tele. to medsurg -The patient will be in contact airborne isolation. -hypoglycemic control - neuro check q6 -c/w Rocephin and azithromycin, valacyclovir. -DVT proph. heparin BID -GI proph. protonix Result Diagram: 02/21/19 0036 02/21/19 0036 Results 24hrs Laboratory Tests Test 02/21/19 18:01 02/21/19 21:39 02/22/19 08:18 02/22/19 12:15 Bedside Glucose 130 100 124 142 Subjective 24 Hr Interval Summary Eyes: visual change (right eye) ENT: bleeding Respiratory: pain Gastrointestinal: pain Musculoskeletal: bone/joint pain; No no complaints, No back pain, No neck pain, No restricted range of motion, No swelling, No other Psychological: anxiety; No no complaints, No nl mood/affect, No confusion, No depression, No suicidal, No other Exam/Review of Systems Exam Vitals Vital Signs Date Temp Pulse Resp B/P (MAP) Pulse Ox O2 O2 Flow FiO2 Time Delivery Rate 02/22/19 98.7 66 20 145/71 97 Nasal 11:26 (95) Cannula 02/21/19 2.0 22:46 Intake and Output 02/21/19 02/21/19 02/22/19 1515:00 23:00 07:00 IntakeIntake Total 300 ml OutputOutput Total 2500 ml 2000 ml BalanceBalance -2500 ml -1700 ml Exam right arm AV fistula Constitutional: alert, oriented Psych: no complaints Head: normocephalic Eyes: nl conjunctiva, other ENMT: other (right eyebrow and right part of head with crusing) Neck: supple Respiratory: clear to auscultation, normal air movement Cardiovascular: regular rate and rhythm Results Results 24hrs Laboratory Tests Test 02/21/19 18:01 02/21/19 21:39 02/22/19 08:18 02/22/19 12:15 Bedside Glucose 130 100 124 142 Medications Medication Current Medications Calcium Acetate (Phoslo) 1,334 mg WITH MEALS PO Last administered on 02/22/19 12:16; Admin Dose 1,334 MG; Start 02/21/19 at 12:00 Clopidogrel Bisulfate (plaVIX) 75 mg DAILY PO Last administered on 02/22/19 08:19; Admin Dose 75 MG; Start 02/22/19 at 09:00 Docusate Sodium (Colace) 100 mg DAILY PO Last administered on 02/22/19 08:19; Admin Dose 100 MG; Start 02/22/19 at 09:00 Folic Acid (Folic Acid) 1 mg DAILY PO Last administered on 02/22/19 08:19; Admin Dose 1 MG; Start 02/22/19 at 09:00 Gabapentin (Neurontin) 100 mg BID PO Last administered on 02/22/19 08:19; Admin Dose 100 MG; Start 02/21/19 at 21:00 Hydralazine HCl (Apresoline) 75 mg TID PO Last administered on 02/22/19 12:17; Admin Dose 75 MG; Start 02/21/19 at 13:00 Linagliptin (Tradjenta) 5 mg DAILY PO Last administered on 02/22/19 08:19; Admin Dose 5 MG; Start 02/22/19 at 09:00 Metoprolol Succinate (Toprol Xl) 50 mg DAILY PO Last administered on 02/22/19 08:20; Admin Dose 50 MG; Start 02/22/19 at 09:00 Ondansetron HCl (Zofran Odt) 4 mg Q6H PRN ODT NAUSEA AND/OR VOMITING; Start 02/21/19 at 10:00 Valacyclovir HCl (Valtrex) 1,000 mg TID PO Last administered on 02/22/19at 12:15; Admin Dose 1,000 MG; Start 02/21/19 at 13:00 Diagnostic Test (Pha) (Accu-Chek) 1 ea AC MEALS AND BEDTIME XX Last administered on 02/22/19 11:20; Admin Dose 1 EA; Start 02/21/19 at 11:30 Ceftriaxone Sodium (Rocephin) 1 gm DAILY IM Last administered on 02/22/19at 08:20; Admin Dose 1 GM; Start 02/22/19 at 09:00 Azithromycin (Zithromax) 500 mg DAILY PO Last administered on 02/22/19 08:18; Admin Dose 500 MG; Start 02/22/19 at 09:00 Acetaminophen/ Hydrocodone Bitart ([place] (5/325)) 1 tab Q3H PRN PO MODERATE PAIN LEVEL 4-6; Start 02/21/19 at 18:00 Diagnostic Test (Pha) (Accu-Chek) 1 ea 02 XX ; Start 02/22/19 at 02:00 Insulin Aspart (Novolog Insulin Pen) NOVOLOG *MILD* ALGORITHM WITH MEALS BEDTIME SC Last administered on 02/22/19 12:20; Admin Dose 1 UNIT; Start 02/21/19 at 21:00 Hydralazine HCl (Apresoline) 10 mg Q6H PRN IV SBP >165 ; Start 02/21/19 at 19:30 JANE MARIE Feb 22, 2019 14:12
[2019-02-22] MEDS: PANTOPRAZOLE (EC) 40 MG TAB PO SCH (14:30)
[2019-02-22 18:46] VITALS: BP 135/61; PULSE 60; RESP 16
[2019-02-22 20:13] VITALS: BP 132/63; PULSE 60; RESP 18
[2019-02-22] MEDS: HEPARIN 5,000 UNIT/1 ML VIAL SC SCH (22:19)
[2019-02-23] VITALS (20 sets, daily range): BP systolic 126–164; BP diastolic 63–85; PULSE 77–116; RESP 15–20
[2019-02-23] MEDS: ACCU-CHEK XX SCH ×5 (02:00→21:00)
[2019-02-23] MEDS: PANTOPRAZOLE (EC) 40 MG TAB PO SCH (05:51)
[2019-02-23] MEDS: INSULIN ASPART [NOVOLOG] 3 ML PEN SC SCH ×4 (08:00→20:25)
[2019-02-23] MEDS: valACYclovir 500 MG TAB PO SCH ×4 (08:52→20:20)
[2019-02-23] MEDS: DOCUSATE SODIUM 100 MG CAP PO SCH (08:52)
[2019-02-23] MEDS: CLOPIDOGREL 75 MG TAB PO SCH (08:52)
[2019-02-23] MEDS: AZITHROMYCIN 500 MG TAB PO SCH (08:53)
[2019-02-23] MEDS: GABAPENTIN 100 MG CAP PO SCH ×2 (08:53→20:20)
[2019-02-23] MEDS: LINAGLIPTIN 5 MG TABLET PO SCH (08:53)
[2019-02-23] MEDS: FOLIC ACID 1 MG TAB PO SCH (08:53)
[2019-02-23] MEDS: CALCIUM ACETATE 667 MG CAP PO SCH ×3 (08:53→17:50)
[2019-02-23] MEDS: HEPARIN 5,000 UNIT/1 ML VIAL SC SCH ×2 (08:57→20:29)
[2019-02-23] MEDS: METOPROLOL (XL) 50 MG TAB PO SCH (09:00)
[2019-02-23] MEDS: CEFTRIAXONE 1 GM INJ IM SCH (10:57)
--- NOTE | 2019-02-23 15:36 | PN ---
Date/Time of Note Date/Time of Note DATE: 02/23/19 TIME: 15:36 Assessment/Plan VTE Prophylaxis Risk score (from Ns)>0 risk: 4 SCD applied (from Ns): No SCD contraindicated: low risk/ambulating Pharmacological prophylaxis: heparin Lines/Catheters IV [facility] Saline Lock Assessment/Plan Hospital Course 1. Headaches. 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 The patient has mild leukocytosis. Currently, the patient does not have any evidence of any meningitis. 2. Basilar opacity with pneumonia. 3. End stage renal disease, on hemodialysis. 4. Left lower extremity edema, resolved. 5. Rule out deep venous thrombosis. 6. Hypertension. 7. Diabetes. 8. Hyperlipidemia. 9. History of ovarian tumor. 10. Anemia of CD 11. Overweight 12. Hepatitis B 13. Mild scattered paranasal sinus disease with small mucoid secretion in the right sphenoid sinus, correlate for acute sinusitis. CT scan seen Assessment/Plan -CT scan of the face reviewed: Right periorbital soft tissue swelling and overlying skin irregularity found. Mild scattered paranasal sinus disease with a small mucus secretion in the right sphenoid sinus. -ophthalmology consult called , no note seen, pt reported blurry vision -Patient just had hemodialysis -Start Flonase - ID has been consulted. -pain control -hypoglycemic control - neuro check q 6 -c/w Rocephin and azithromycin, valacyclovir. -DVT proph. heparin BID -GI proph. protonix Result Diagram: 02/23/19 0547 02/23/19 0546 Results 24hrs Laboratory Tests Test 02/22/19 17:36 02/22/19 22:13 02/23/19 05:46 02/23/19 05:47 Bedside Glucose 148 161 Sodium Level 136 Potassium Level 5.0 Chloride Level 98 Carbon Dioxide Level 28 Anion Gap 10 Blood Urea Nitrogen 47 H Creatinine 8.24 H Est Glomerular 5 L Filtrat Rate mL/min Glucose Level 122 Uric Acid 5.4 Calcium Level 9.2 White Blood Count 8.4 # Red Blood Count 3.23 L Hemoglobin 10.1 L Hematocrit 31.8 L Mean Corpuscular 98.5 Volume Mean Corpuscular 31.3 Hemoglobin Mean Corpuscular 31.8 L Hemoglobin Concent Red Cell 16.5 H Distribution Width Platelet Count 280 Mean Platelet Volume 10.2 Immature 1.800 H Granulocytes % Neutrophils % 65.6 Lymphocytes % 14.0 L Monocytes % 16.3 H Eosinophils % 1.9 Basophils % 0.4 Nucleated Red Blood 0.4 H Cells % Immature 0.150 H Granulocytes # Neutrophils # 5.5 Lymphocytes # 1.2 Monocytes # 1.4 H Eosinophils # 0.2 Basophils # 0.0 Nucleated Red Blood 0.0 Cells # Hemoglobin A1c 5.8 Test 02/23/19 08:46 02/23/19 12:50 Bedside Glucose 110 119 Subjective 24 Hr Interval Summary Free Text/Dictation Constitutional: No fever, cough or chills. Obese EYE: No eye disease. Blurry vision patient reported no change in her condition CARDIOVASCULAR: No chest pain. No Tachycardia. No Palpitation. RESPIRATORY: No breathing problems. Patient is on supplemental oxygen GASTROINTESTINAL: No Nausea. No Vomiting. No constipation. Endocrine: No excessive thirst, No polyuria, No hot intolerance. No cold intolerance. MUSCULO-SKELETAL: No bone or Joint disease. Edema on the right arm chronical NEUROLOGICAL: Alert oriented in person, place, time and situation. No Headache, Confusion. No Seizures. No problem with balance. Exam/Review of Systems Exam Vitals Vital Signs Date Temp Pulse Resp B/P (MAP) Pulse Ox O2 O2 Flow FiO2 Time Delivery Rate 02/23/19 98.0 92 16 138/77 99 Nasal 14:12 (97) Cannula 02/23/19 2.0 12:28 Exam Right arm AV fistula Constitutional: alert, oriented Head: other (Old blood on the right side of the forehead) Eyes: other ([facility] site of the face reveals a scars and the excoriation) Neck: supple, non-tender Respiratory: clear to auscultation Cardiovascular: regular rate and rhythm Gastrointestinal: soft Genitourinary - Female: CVA tenderness; No nl adnexae, No nl external genitalia, No CMT, No uterus, No other Extremities: edema (Right arm) Skin: nl turgor Results Results 24hrs Laboratory Tests Test 02/22/19 17:36 02/22/19 22:13 02/23/19 05:46 02/23/19 05:47 Bedside Glucose 148 161 Sodium Level 136 Potassium Level 5.0 Chloride Level 98 Carbon Dioxide Level 28 Anion Gap 10 Blood Urea Nitrogen 47 H Creatinine 8.24 H Est Glomerular 5 L Filtrat Rate mL/min Glucose Level 122 Uric Acid 5.4 Calcium Level 9.2 White Blood Count 8.4 # Red Blood Count 3.23 L Hemoglobin 10.1 L Hematocrit 31.8 L Mean Corpuscular 98.5 Volume Mean Corpuscular 31.3 Hemoglobin Mean Corpuscular 31.8 L Hemoglobin Concent Red Cell 16.5 H Distribution Width Platelet Count 280 Mean Platelet Volume 10.2 Immature 1.800 H Granulocytes % Neutrophils % 65.6 Lymphocytes % 14.0 L Monocytes % 16.3 H Eosinophils % 1.9 Basophils % 0.4 Nucleated Red Blood 0.4 H Cells % Immature 0.150 H Granulocytes # Neutrophils # 5.5 Lymphocytes # 1.2 Monocytes # 1.4 H Eosinophils # 0.2 Basophils # 0.0 Nucleated Red Blood 0.0 Cells # Hemoglobin A1c 5.8 Test 02/23/19 08:46 02/23/19 12:50 Bedside Glucose 110 119 Medications Medication Current Medications Calcium Acetate (Phoslo) 1,334 mg WITH MEALS PO Last administered on 02/23/19 12:53; Admin Dose 1,334 MG; Start 02/21/19 at 12:00 Clopidogrel Bisulfate (plaVIX) 75 mg DAILY PO Last administered on 02/23/19 08:52; Admin Dose 75 MG; Start 02/22/19 at 09:00 Docusate Sodium (Colace) 100 mg DAILY PO Last administered on 02/23/19 08:52; Admin Dose 100 MG; Start 02/22/19 at 09:00 Folic Acid (Folic Acid) 1 mg DAILY PO Last administered on 02/23/19 08:53; Admin Dose 1 MG; Start 02/22/19 at 09:00 Gabapentin (Neurontin) 100 mg BID PO Last administered on 02/23/19 08:53; A dmin Dose 100 MG; Start 02/21/19 at 21:00 Hydralazine HCl (Apresoline) 75 mg TID PO Last administered on 02/23/19 12:52; Admin Dose 75 MG; Start 02/21/19 at 13:00 Linagliptin (Tradjenta) 5 mg DAILY PO Last administered on 02/23/19 08:53; Admin Dose 5 MG; Start 02/22/19 at 09:00 Metoprolol Succinate (Toprol Xl) 50 mg DAILY PO Last administered on 02/22/19 08:20; Admin Dose 50 MG; Start 02/22/19 at 09:00 Ondansetron HCl (Zofran Odt) 4 mg Q6H PRN ODT NAUSEA AND/OR VOMITING; Start 02/21/19 at 10:00 Valacyclovir HCl (Valtrex) 1,000 mg TID PO Last administered on 02/23/19 13:23; Admin Dose 1,000 MG; Start 02/21/19 at 13:00 Diagnostic Test (Pha) (Accu-Chek) 1 ea AC MEALS AND BEDTIME XX Last administered on 02/23/19 11:30; Admin Dose 1 EA; Start 02/21/19 at 11:30 Ceftriaxone Sodium (Rocephin) 1 gm DAILY IM Last administered on 02/23/19 10:57; Admin Dose 1 GM; Start 02/22/19 at 09:00 Azithromycin (Zithromax) 500 mg DAILY PO Last administered on 02/23/19 08:53; Admin Dose 500 MG; Start 02/22/19 at 09:00 Acetaminophen/ Hydrocodone Bitart ([place] (5/325)) 1 tab Q3H PRN PO MODERATE PAIN LEVEL 4-6; Start 02/21/19 at 18:00 Diagnostic Test (Pha) (Accu-Chek) 1 ea 02 XX ; Start 02/22/19 at 02:00 Insulin Aspart (Novolog Insulin Pen) NOVOLOG *MILD* ALGORITHM WITH MEALS BEDTIME SC Last administered on 02/22/19 17:41; Admin Dose 1 UNIT; Start 02/21/19 at 21:00 Hydralazine HCl (Apresoline) 10 mg Q6H PRN IV SBP >165 ; Start 02/21/19 at 19:30 Pantoprazole (Protonix Tab) 40 mg DAILY@06 PO Last administered on 02/23/19 05:51; Admin Dose 40 MG; Start 02/22/19 at 14:30 Heparin Sodium (Porcine) (Heparin (5000 Units/1ml)) 5,000 unit BID SC Last administered on 02/23/19 08:57; Admin Dose 5,000 UNIT; Start 02/22/19 at 21:00 Epoetin Carlos-epbx (Retacrit (Esrd)) 4,000 unit [facility]@1700 [place] ; Start 02/23/19 at 17:00 AJNE MARIE Feb 23, 2019 15:36
--- NOTE | 2019-02-23 16:16 | CONS ---
Assessment/Plan Assessment/Plan Hospital Course (Demo Recall) ID PROGRESS NOTE CURRENT ABX: DAY # => Azith + Ceftriaxone + Valtrex 24H INTERVAL SUMMARY * Awake, alert, still has pain right side of head @ site of HSV outbreak DIAGNOSTIC IMAGING * 02/21/19 CXR: Patchy left basilar opacity, possibly representing atelectasis or pneumonia. Mildly enlarged cardiac silhouette and aortic atherosclerosis. Cardiac pacemaker. MICRO * 02/21/19 BCx (-) PHYSICAL EXAMINATION: GENERAL: VSS, NAD - HEENT: AT, NC, right forehead temporal HSV lesions NECK: Supple, CHEST: Rise symmetrical HEART: Pulse RRR ABDOMEN: Soft EXTREMITIES: Warm, dry SKIN: No rash, no diaphoresis ID ASSESSMENT 68 yo F admit with: 1. 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 * Sinusitis per CT Mild right maxillary sinus mucosal thickening. Mild scattered paranasal sinus disease with small mucoid secretion in the right sphenoid sinus, correlate for acute sinusitis. 2. Basilar opacity with pneumonia. 3. Endstage renal disease, on hemodialysis. 4. Left lower extremity edema. 5. Rule out deep venous thrombosis. 6. Hypertension. 7. Diabetes. 8. Hyperlipidemia. 9. History of ovarian tumor. ABX ALLERGIES: KNDA INVASIVES: PIV CURRENT ABX: DAY # => Azith + Ceftriaxone + Valtrex ID RECOMMENDATIONS/PLAN: 1. Consider addition of Gabapentin 300mg po TID for herpetic neuralgia 2. Add Nimesh Solution 5% aluminum acetate wet DSG 30-60 minutes daily Q6 hours while awake Consultation Date/Type/Reason Admit Date/Time Feb 21, 2019 at 03:02 Initial Consult Date Date/Time of Note DATE: 02/23/19 TIME: 16:16 Exam/Review of Systems Exam Vitals Vital Signs Date Temp Pulse Resp B/P (MAP) Pulse Ox O2 O2 Flow FiO2 Time Delivery Rate 02/23/19 98.0 92 16 138/77 99 Nasal 14:12 (97) Cannula 02/23/19 2.0 12:28 Results Result Diagram: 02/23/19 0547 02/23/19 0546 Results 24hrs Laboratory Tests Test 02/22/19 17:36 02/22/19 22:13 02/23/19 05:46 02/23/19 05:47 Bedside Glucose 148 161 Sodium Level 136 Potassium Level 5.0 Chloride Level 98 Carbon Dioxide Level 28 Anion Gap 10 Blood Urea Nitrogen 47 H Creatinine 8.24 H Est Glomerular 5 L Filtrat Rate mL/min Glucose Level 122 Uric Acid 5.4 Calcium Level 9.2 White Blood Count 8.4 # Red Blood Count 3.23 L Hemoglobin 10.1 L Hematocrit 31.8 L Mean Corpuscular 98.5 Volume Mean Corpuscular 31.3 Hemoglobin Mean Corpuscular 31.8 L Hemoglobin Concent Red Cell 16.5 H Distribution Width Platelet Count 280 Mean Platelet Volume 10.2 Immature 1.800 H Granulocytes % Neutrophils % 65.6 Lymphocytes % 14.0 L Monocytes % 16.3 H Eosinophils % 1.9 Basophils % 0.4 Nucleated Red Blood 0.4 H Cells % Immature 0.150 H Granulocytes # Neutrophils # 5.5 Lymphocytes # 1.2 Monocytes # 1.4 H Eosinophils # 0.2 Basophils # 0.0 Nucleated Red Blood 0.0 Cells # Hemoglobin A1c 5.8 Test 02/23/19 08:46 02/23/19 12:50 Bedside Glucose 110 119 Medications Medication Current Medications Calcium Acetate (Phoslo) 1,334 mg WITH MEALS PO Last administered on 02/23/19 12:53; Admin Dose 1,334 MG; Start 02/21/19 at 12:00 Clopidogrel Bisulfate (plaVIX) 75 mg DAILY PO Last administered on 02/23/19at 0 8:52; Admin Dose 75 MG; Start 02/22/19 at 09:00 Docusate Sodium (Colace) 100 mg DAILY PO Last administered on 02/23/19at 08:52; Admin Dose 100 MG; Start 02/22/19 at 09:00 Folic Acid (Folic Acid) 1 mg DAILY PO Last administered on 02/23/19 08:53; Admin Dose 1 MG; Start 02/22/19 at 09:00 Gabapentin (Neurontin) 100 mg BID PO Last administered on 02/23/19at 08:53; Admin Dose 100 MG; Start 02/21/19 at 21:00 Hydralazine HCl (Apresoline) 75 mg TID PO Last administered on 02/23/19at 12:52; Admin Dose 75 MG; Start 02/21/19 at 13:00 Linagliptin (Tradjenta) 5 mg DAILY PO Last administered on 02/23/19 08:53; Admin Dose 5 MG; Start 02/22/19 at 09:00 Metoprolol Succinate (Toprol Xl) 50 mg DAILY PO Last administered on 02/22/19 08:20; Admin Dose 50 MG; Start 02/22/19 at 09:00 Ondansetron HCl (Zofran Odt) 4 mg Q6H PRN ODT NAUSEA AND/OR VOMITING; Start 02/21/19 at 10:00 Valacyclovir HCl (Valtrex) 1,000 mg TID PO Last administered on 02/23/19 13:23; Admin Dose 1,000 MG; Start 02/21/19 at 13:00 Diagnostic Test (Pha) (Accu-Chek) 1 ea AC MEALS AND BEDTIME XX Last administered on 02/23/19 11:30; Admin Dose 1 EA; Start 02/21/19 at 11:30 Ceftriaxone Sodium (Rocephin) 1 gm DAILY IM Last administered on 02/23/19 10:57; Admin Dose 1 GM; Start 02/22/19 at 09:00 Azithromycin (Zithromax) 500 mg DAILY PO Last administered on 02/23/19 08:53; Admin Dose 500 MG; Start 02/22/19 at 09:00 Acetaminophen/ Hydrocodone Bitart ([place] (5/325)) 1 tab Q3H PRN PO MODERATE PAIN LEVEL 4-6; Start 02/21/19 at 18:00 Diagnostic Test (Pha) (Accu-Chek) 1 ea 02 XX ; Start 02/22/19 at 02:00 Insulin Aspart (Novolog Insulin Pen) NOVOLOG *MILD* ALGORITHM WITH MEALS BEDTIME SC Last administered on 02/22/19 17:41; Admin Dose 1 UNIT; Start 02/21/19 at 21:00 Hydralazine HCl (Apresoline) 10 mg Q6H PRN IV SBP >165 ; Start 02/21/19 at 19:30 Pantoprazole (Protonix Tab) 40 mg DAILY@06 PO Last administered on 02/23/19 05:51; Admin Dose 40 MG; Start 02/22/19 at 14:30 Heparin Sodium (Porcine) (Heparin (5000 Units/1ml)) 5,000 unit BID SC Last administered on 02/23/19 08:57; Admin Dose 5,000 UNIT; Start 02/22/19 at 21:00 Epoetin Carlos-epbx (Retacrit (Esrd)) 4,000 unit TuThSa@1700 SC ; Start 02/23/19 at 17:00 Fluticasone Propionate (Flonase 0.05% Nasal) 1 spray DAILY NASAL ; Start 02/23/19 at 16:30; Status PRIYANKA MOHAMUD NP Feb 23, 2019 16:16
[2019-02-23] MEDS: EPOETIN ALFA-EPBX (ESRD) 4,000 UNIT/ML VIAL SC SCH (17:51)
[2019-02-23] MEDS: FLUTICASONE 0.05% 16 GM NAS SPRAY NASAL SCH (18:08)
[2019-02-24 02:00] VITALS: BP 155/76; PULSE 65; RESP 18
[2019-02-24] MEDS: ACCU-CHEK XX SCH ×5 (02:00→20:58)
[2019-02-24] MEDS: PANTOPRAZOLE (EC) 40 MG TAB PO SCH (05:28)
[2019-02-24 07:58] VITALS: BP 141/63; PULSE 65; RESP 18
[2019-02-24] MEDS: INSULIN ASPART [NOVOLOG] 3 ML PEN SC SCH ×4 (08:00→20:57)
[2019-02-24] MEDS: valACYclovir 500 MG TAB PO SCH ×3 (08:20→20:57)
[2019-02-24] MEDS: FOLIC ACID 1 MG TAB PO SCH (08:21)
[2019-02-24] MEDS: CALCIUM ACETATE 667 MG CAP PO SCH ×3 (08:21→17:38)
[2019-02-24] MEDS: METOPROLOL (XL) 50 MG TAB PO SCH (08:21)
[2019-02-24] MEDS: DOCUSATE SODIUM 100 MG CAP PO SCH (08:21)
[2019-02-24] MEDS: AZITHROMYCIN 500 MG TAB PO SCH (08:22)
[2019-02-24] MEDS: GABAPENTIN 100 MG CAP PO SCH ×2 (08:22→20:57)
[2019-02-24] MEDS: LINAGLIPTIN 5 MG TABLET PO SCH (08:22)
[2019-02-24] MEDS: CLOPIDOGREL 75 MG TAB PO SCH (08:22)
[2019-02-24] MEDS: FLUTICASONE 0.05% 16 GM NAS SPRAY NASAL SCH (08:23)
[2019-02-24] MEDS: HEPARIN 5,000 UNIT/1 ML VIAL SC SCH ×2 (08:27→21:10)
[2019-02-24] MEDS: CEFTRIAXONE 1 GM INJ IM SCH (11:38)
--- NOTE | 2019-02-24 12:03 | PN ---
Date/Time of Note Date/Time of Note DATE: 02/24/19 TIME: 12:01 Assessment/Plan VTE Prophylaxis Risk score (from [place])>0 risk: 4 [place] [facility] [place] contraindicated: bilateral [place] Pharmacological prophylaxis: heparin Lines/Catheters IV [facility] Type [facility] Peripheral IV Assessment/Plan Hospital Course 1. Headaches. resolved. 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 The patient has mild leukocytosis, resolved. Currently, the patient does not have any evidence of any meningitis. 2. Basilar opacity with pneumonia. Chest x-ray ordered 3. End stage renal disease, on hemodialysis. 4. Left lower extremity edema, anasarca. 5. Rule out deep venous thrombosis, negative. 6. Hypertension, normotensive now. 7. Diabetes mellitus type II, controlled blood sugar is normal. 8. Hyperlipidemia. 9. History of ovarian tumor. 10. Anemia of CD 11. Overweight 12. Hepatitis B 13. Mild scattered paranasal sinus disease with small mucoid secretion in the right sphenoid sinus, correlate for acute sinusitis. CT scan seen Assessment/Plan Continue with antibiotic antibiotics switched to IV Chest x-ray today Continue with Flonase Lab work is reviewed Blood culture after 72 hours is negative Hypoglycemic control Wound care DVT and GI prophylaxis WBC went down ID consult Dr. Musa is appreciated Continue with hemodialysis Ophthalmology consult ordered Continue with Epogen Result Diagram: 02/24/19 0558 02/24/19 0558 Results 24hrs Laboratory Tests Test 02/23/19 12:50 02/23/19 17:47 02/23/19 20:25 02/24/19 05:58 Bedside Glucose 119 108 115 White Blood Count 7.6 Red Blood Count 3.36 L Hemoglobin 10.5 L Hematocrit 32.9 L Mean Corpuscular 97.9 Volume Mean Corpuscular 31.3 Hemoglobin Mean Corpuscular 31.9 L Hemoglobin Concent Red Cell 17.0 H Distribution Width Platelet Count 288 Mean Platelet Volume 10.6 H Immature 0.800 H Granulocytes % Neutrophils % 67.5 Segmented 70 Neutrophils % (Manual) Band Neutrophils % 2 (Manual) Lymphocytes % 14.7 L Lymphocytes % 11 L (Manual) Reactive Lymphocytes 5 H % (Manual) Monocytes % 14.9 H Monocytes % (Manual) 7 Eosinophils % 1.6 Eosinophils % 3 (Manual) Basophils % 0.5 Basophils % (Manual) 2 Nucleated Red Blood 1 H Cells % Immature 0.060 H Granulocytes # Neutrophils # 5.1 Neutrophils # 5.3 (Manual) Band Neutrophils # 0.1 Lymphocytes (Manual) 0.8 Lymphocytes # 1.1 Reactive Lymphocytes 0.3 H # Monocytes # 1.1 H Monocytes # (Manual) 0.5 Eosinophils # 0.1 Basophils # 0.0 Basophils # (Manual) 0.1 H Nucleated Red Blood 0.0 Cells # Platelet Estimate NORMAL Polychromasia 3+ Hypochromasia 1+ Poikilocytosis 1+ Anisocytosis 2+ Macrocytosis 2+ Sodium Level 138 Potassium Level 5.0 Chloride Level 101 Carbon Dioxide Level 26 Anion Gap 11 Blood Urea Nitrogen 37 H Creatinine 6.87 H Est Glomerular 6 L Filtrat Rate mL/min Glucose Level 123 Calcium Level 9.4 Test 02/24/19 08:18 Bedside Glucose 119 Subjective 24 Hr Interval Summary Free Text/Dictation Constitutional: No fever, cough or chills. Malaise EYE: Blurry vision CARDIOVASCULAR: No chest pain. NoTachycardia. No Palpitation. RESPIRATORY: Periodic short of breath use supplemental oxygen via nasal cannula. no COPD GASTROINTESTINAL: No Nausea. No Vomiting. No constipation. Endocrine: No excessive thirst, No polyuria, No hot intolerance. No cold intolerance. Has diabetes mellitus MUSCULO-SKELETAL: Weakness NEUROLOGICAL: Alert oriented in person, place, time and situation. Denied headache, Confusion. No Seizures. Exam/Review of Systems Exam Vitals Vital Signs Date Temp Pulse Resp B/P (MAP) Pulse Ox O2 O2 Flow FiO2 Time Delivery Rate 02/24/19 98.8 65 18 141/63 97 07:58 (89) 02/23/19 Nasal 14:12 Cannula 02/23/19 2.0 12:28 Intake and Output 02/23/19 02/23/19 02/24/19 1515:00 23:00 07:00 IntakeIntake Total 580 ml OutputOutput Total 2600 ml BalanceBalance -2600 ml 580 ml Exam No acute distress, no events overnight. Eyes: anicteric, EOM's intact, no pallor, visual exam is decreased vision, pt is seeing equally by both eyes, on the right side of the forehead and eye multiple crusts, dried blood Nose: no rhinorrhea Neck: supple, no thyromegaly, no carotid bruits Lungs: clear bilaterally, decreased. CVS: regular rate and rhythm, no murmurs Abdomen: soft, bowel sounds present, no hepatosplenomegally, no masses, no rebound or guarding. Obese Rectal: differed. External genitalia: no lesions. No Gomez Extremities: Trace edema, DP palpable Neuro: alert and oriented x 3 Gait: Unable to assess patient is in the bed for 48 hours did not stand up Motor strenght: 4+/4+ Sensory exam is abnormal, decreased bilaterally Deep tendon reflexes: normal, Babisky reflexes are absent bilaterally Skin: no lesions, right arm AV fistula. Anasarca Results Results 24hrs Laboratory Tests Test 02/23/19 12:50 02/23/19 17:47 02/23/19 20:25 02/24/19 05:58 Bedside Glucose 119 108 115 White Blood Count 7.6 Red Blood Count 3.36 L Hemoglobin 10.5 L Hematocrit 32.9 L Mean Corpuscular 97.9 Volume Mean Corpuscular 31.3 Hemoglobin Mean Corpuscular 31.9 L Hemoglobin Concent Red Cell 17.0 H Distribution Width Platelet Count 288 Mean Platelet Volume 10.6 H Immature 0.800 H Granulocytes % Neutrophils % 67.5 Segmented 70 Neutrophils % (Manual) Band Neutrophils % 2 (Manual) Lymphocytes % 14.7 L Lymphocytes % 11 L (Manual) Reactive Lymphocytes 5 H % (Manual) Monocytes % 14.9 H Monocytes % (Manual) 7 Eosinophils % 1.6 Eosinophils % 3 (Manual) Basophils % 0.5 Basophils % (Manual) 2 Nucleated Red Blood 1 H Cells % Immature 0.060 H Granulocytes # Neutrophils # 5.1 Neutrophils # 5.3 (Manual) Band Neutrophils # 0.1 Lymphocytes (Manual) 0.8 Lymphocytes # 1.1 Reactive Lymphocytes 0.3 H # Monocytes # 1.1 H Monocytes # (Manual) 0.5 Eosinophils # 0.1 Basophils # 0.0 Basophils # (Manual) 0.1 H Nucleated Red Blood 0.0 Cells # Platelet Estimate NORMAL Polychromasia 3+ Hypochromasia 1+ Poikilocytosis 1+ Anisocytosis 2+ Macrocytosis 2+ Sodium Level 138 Potassium Level 5.0 Chloride Level 101 Carbon Dioxide Level 26 Anion Gap 11 Blood Urea Nitrogen 37 H Creatinine 6.87 H Est Glomerular 6 L Filtrat Rate mL/min Glucose Level 123 Calcium Level 9.4 Test 02/24/19 08:18 Bedside Glucose 119 Medications Medication Current Medications Calcium Acetate (Phoslo) 1,334 mg WITH MEALS PO Last administered on 02/24/19 08:21; Admin Dose 1,334 MG; Start 02/21/19 at 12:00 Clopidogrel Bisulfate (plaVIX) 75 mg DAILY PO Last administered on 02/24/19 08:22; Admin Dose 75 MG; Start 02/22/19 at 09:00 Docusate Sodium (Colace) 100 mg DAILY PO Last administered on 02/24/19 08:21; Admin Dose 100 MG; Start 02/22/19 at 09:00 Folic Acid (Folic Acid) 1 mg DAILY PO Last administered on 02/24/19 08:21; Admin Dose 1 MG; Start 02/22/19 at 09:00 Gabapentin (Neurontin) 100 mg BID PO Last administered on 02/24/19 08:22; Admin Dose 100 MG; Start 02/21/19 at 21:00 Hydralazine HCl (Apresoline) 75 mg TID PO Last administered on 02/24/19 08:22; Admin Dose 75 MG; Start 02/21/19 at 13:00 Linagliptin (Tradjenta) 5 mg DAILY PO Last administered on 02/24/19 08:22; Admin Dose 5 MG; Start 02/22/19 at 09:00 Metoprolol Succinate (Toprol Xl) 50 mg DAILY PO Last administered on 02/24/19 08:21; Admin Dose 50 MG; Start 02/22/19 at 09:00 Ondansetron HCl (Zofran Odt) 4 mg Q6H PRN ODT NAUSEA AND/OR VOMITING; Start 02/21/19 at 10:00 Valacyclovir HCl (Valtrex) 1,000 mg TID PO Last administered on 02/24/19 08:20; Admin Dose 1,000 MG; Start 02/21/19 at 13:00 Diagnostic Test (Pha) (Accu-Chek) 1 ea AC MEALS AND BEDTIME XX Last administered on 02/24/19 07:00; Admin Dose 1 EA; Start 02/21/19 at 11:30 Ceftriaxone Sodium (Rocephin) 1 gm DAILY IM Last administered on 7/21/19at 11:38; Admin Dose 1 GM; Start 02/22/19 at 09:00 Azithromycin (Zithromax) 500 mg DAILY PO Last administered on 02/24/19 08:22; Admin Dose 500 MG; Start 02/22/19 at 09:00 Acetaminophen/ Hydrocodone Bitart ([place] (5/325)) 1 tab Q3H PRN PO MODERATE PAIN LEVEL 4-6; Start 02/21/19 at 18:00 Diagnostic Test (Pha) (Accu-Chek) 1 ea 02 XX ; Start 02/22/19 at 02:00 Insulin Aspart (Novolog Insulin Pen) NOVOLOG *MILD* ALGORITHM WITH MEALS BEDTIME SC Last administered on 02/22/19 17:41; Admin Dose 1 UNIT; Start 02/04 03/25 at 21:00 Hydralazine HCl (Apresoline) 10 mg Q6H PRN IV SBP >165 ; Start 02/21/19 at 19:30 Pantoprazole (Protonix Tab) 40 mg DAILY@06 PO Last administered on 02/24/19at 05:28; Admin Dose 40 MG; Start 02/22/19 at 14:30 Heparin Sodium (Porcine) (Heparin (5000 Units/1ml)) 5,000 unit BID SC Last administered on 02/24/19 08:27; Admin Dose 5,000 UNIT; Start 02/22/19 at 21:00 Epoetin Carlos-epbx (Retacrit (Esrd)) 4,000 unit TuThSa@1700 SC Last administered on 02/23/19at 17:51; Admin Dose 4,000 UNIT; Start 02/23/19 at 17:00 Fluticasone Propionate (Flonase 0.05% Nasal) 1 spray DAILY NASAL Last a dministered on 02/24/19 08:23; Admin Dose 1 SPRAY; Start 02/23/19 at 16:30 JANE MARIE Feb 24, 2019 12:03
[2019-02-24 13:30] VITALS: BP 134/72; PULSE 87; RESP 18
--- NOTE | 2019-02-24 15:49 | CONS ---
Assessment/Plan Assessment/Plan Hospital Course (Demo Recall) ID PROGRESS NOTE CURRENT ABX: DAY # 4 => Azith + Ceftriaxone + Valtrex 24H INTERVAL SUMMARY * CLINICALLY STATUS QUO -- STILL HAS NEUROPATHIC PAIN right side of head @ site of HSV outbreak * Pharmacy does not have Nimesh's solution which is recommended to assist with zoster pain at site of lesions -- have DC'd nursing order for Nimesh's wet DSG. * All I can do is offer patient encouragement that eventually neuropathic pain will pass. DIAGNOSTIC IMAGING * 02/21/19 CXR: Patchy left basilar opacity, possibly representing atelectasis or pneumonia. Mildly enlarged cardiac silhouette and aortic atherosclerosis. Cardiac pacemaker. MICRO * 02/21/19 BCx (-) PHYSICAL EXAMINATION: GENERAL: VSS, NAD - HEENT: AT, NC, right forehead temporal HSV lesions NECK: Supple, CHEST: Rise symmetrical HEART: Pulse RRR ABDOMEN: Soft EXTREMITIES: Warm, dry SKIN: No rash, no diaphoresis ID ASSESSMENT 68 yo F admit with: 1. 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 * Sinusitis per CT Mild right maxillary sinus mucosal thickening. Mild scattered paranasal sinus disease with small mucoid secretion in the right sphenoid sinus, correlate for acute sinusitis. 2. Basilar opacity with pneumonia. 3. Endstage renal disease, on hemodialysis. 4. Left lower extremity edema. 5. Rule out deep venous thrombosis. 6. Hypertension. 7. Diabetes. 8. Hyperlipidemia. 9. History of ovarian tumor. ABX ALLERGIES: KNDA INVASIVES: PIV CURRENT ABX: DAY # => Azith + Ceftriaxone + Valtrex ID RECOMMENDATIONS/PLAN: 1. Primary may consider addition of Gabapentin 300mg po TID for herpetic neuralgia 2. Completing course of Valtrex PO. 3. DC Azith and Ceftriaxone tomorrow -- may DC on Valtrex 1,000 mg po TID x to complete 10 days total Consultation Date/Type/Reason Admit Date/Time Feb 21, 2019 at 03:02 Initial Consult Date Date/Time of Note DATE: 02/24/19 TIME: 15:45 Exam/Review of Systems Exam Vitals Vital Signs Date Temp Pulse Resp B/P (MAP) Pulse Ox O2 O2 Flow FiO2 Time Delivery Rate 02/24/19 98.5 87 18 134/72 99 13:30 (92) 02/23/19 Nasal 14:12 Cannula 02/23/19 2.0 12:28 Intake and Output 02/23/19 02/23/19 02/24/19 1515:00 23:00 07:00 IntakeIntake Total 580 ml OutputOutput Total 2600 ml BalanceBalance -2600 ml 580 ml Results Result Diagram: 02/24/19 0558 02/24/19 0558 Results 24hrs Laboratory Tests Test 02/23/19 17:47 02/23/19 20:25 02/24/19 05:58 02/24/19 08:18 Bedside Glucose 108 115 119 White Blood Count 7.6 Red Blood Count 3.36 L Hemoglobin 10.5 L Hematocrit 32.9 L Mean Corpuscular 97.9 Volume Mean Corpuscular 31.3 Hemoglobin Mean Corpuscular 31.9 L Hemoglobin Concent Red Cell 17.0 H Distribution Width Platelet Count 288 Mean Platelet Volume 10.6 H Immature 0.800 H Granulocytes % Neutrophils % 67.5 Segmented 70 Neutrophils % (Manual) Band Neutrophils % 2 (Manual) Lymphocytes % 14.7 L Lymphocytes % 11 L (Manual) Reactive Lymphocytes 5 H % (Manual) Monocytes % 14.9 H Monocytes % (Manual) 7 Eosinophils % 1.6 Eosinophils % 3 (Manual) Basophils % 0.5 Basophils % (Manual) 2 Nucleated Red Blood 1 H Cells % Immature 0.060 H Granulocytes # Neutrophils # 5.1 Neutrophils # 5.3 (Manual) Band Neutrophils # 0.1 Lymphocytes (Manual) 0.8 Lymphocytes # 1.1 Reactive Lymphocytes 0.3 H # Monocytes # 1.1 H Monocytes # (Manual) 0.5 Eosinophils # 0.1 Basophils # 0.0 Basophils # (Manual) 0.1 H Nucleated Red Blood 0.0 Cells # Platelet Estimate NORMAL Polychromasia 3+ Hypochromasia 1+ Poikilocytosis 1+ Anisocytosis 2+ Macrocytosis 2+ Sodium Level 138 Potassium Level 5.0 Chloride Level 101 Carbon Dioxide Level 26 Anion Gap 11 Blood Urea Nitrogen 37 H Creatinine 6.87 H Est Glomerular 6 L Filtrat Rate mL/min Glucose Level 123 Calcium Level 9.4 Test 02/24/19 12:23 Bedside Glucose 111 Medications Medication Current Medications Calcium Acetate (Phoslo) 1,334 mg WITH MEALS PO Last administered on 02/24/19 12:25; Admin Dose 1,334 MG; Start 02/21/19 at 12:00 Clopidogrel Bisulfate (plaVIX) 75 mg DAILY PO Last administered on 02/24/19 08:22; Admin Dose 75 MG; Start 02/22/19 at 09:00 Docusate Sodium (Colace) 100 mg DAILY PO Last administered on 02/24/19 08:21; Admin Dose 100 MG; Start 02/22/19 at 09:00 Folic Acid (Folic Acid) 1 mg DAILY PO Last administered on 02/24/19 08:21; Admin Dose 1 MG; Start 02/22/19 at 09:00 Gabapentin (Neurontin) 100 mg BID PO Last administered on 02/24/19 08:22; Admin Dose 100 MG; Start 02/21/19 at 21:00 Hydralazine HCl (Apresoline) 75 mg TID PO Last administered on 02/24/19 13:33; Admin Dose 75 MG; Start 02/21/19 at 13:00 Linagliptin (Tradjenta) 5 mg DAILY PO Last administered on 02/24/19 08:22; Admin Dose 5 MG; Start 02/22/19 at 09:00 Metoprolol Succinate (Toprol Xl) 50 mg DAILY PO Last administered on 02/24/19 08:21; Admin Dose 50 MG; Start 02/22/19 at 09:00 Ondansetron HCl (Zofran Odt) 4 mg Q6H PRN ODT NAUSEA AND/OR VOMITING; Start 02/21/19 at 10:00 Valacyclovir HCl (Valtrex) 1,000 mg TID PO Last administered on 02/24/19 12:25; Admin Dose 1,000 MG; Start 02/21/19 at 13:00 Diagnostic Test (Pha) (Accu-Chek) 1 ea AC MEALS AND BEDTIME XX Last administered on 02/24/19 12:24; Admin Dose 1 EA; Start 02/21/19 at 11:30 Azithromycin (Zithromax) 500 mg DAILY PO Last administered on 02/24/19 08:22; Admin Dose 500 MG; Start 02/22/19 at 09:00 Acetaminophen/ Hydrocodone Bitart ([place] (5/325)) 1 tab Q3H PRN PO MODERATE PAIN LEVEL 4-6; Start 02/21/19 at 18:00 Diagnostic Test (Pha) (Accu-Chek) 1 ea 02 XX ; Start 02/22/19 at 02:00 Insulin Aspart (Novolog Insulin Pen) NOVOLOG *MILD* ALGORITHM WITH MEALS BEDTIME SC Last administered on 02/22/19 17:41; Admin Dose 1 UNIT; Start 02/21/19 at 21:00 Hydralazine HCl (Apresoline) 10 mg Q6H PRN IV SBP >165 ; Start 02/21/19 at 19:30 Pantoprazole (Protonix Tab) 40 mg DAILY@06 PO Last administered on 02/24/19 05:28; Admin Dose 40 MG; Start 02/22/19 at 14:30 Heparin Sodium (Porcine) (Heparin (5000 Units/1ml)) 5,000 unit BID SC Last administered on 02/24/19 08:27; Admin Dose 5,000 UNIT; Start 02/22/19 at 21:00 Epoetin Carlos-epbx (Retacrit (Esrd)) 4,000 unit TuThSa@1700 SC Last administered on 02/23/19at 17:51; Admin Dose 4,000 UNIT; Start 02/23/19 at 17:00 Fluticasone Propionate (Flonase 0.05% Nasal) 1 spray DAILY NASAL Last administered on 02/24/19 08:23; Admin Dose 1 SPRAY; Start 02/23/19 at 16:30 Ceftriaxone Sodium 50 ml @ 100 mls/hr DAILY IVPB ; Start 02/25/19 at 09:00 PRIYANKA GAMING NP Feb 24, 2019 15:49
[2019-02-24 20:43] VITALS: BP 143/70; PULSE 94; RESP 16
[2019-02-25] VITALS (22 sets, daily range): BP systolic 105–188; BP diastolic 45–79; PULSE 41–107; RESP 16–19
[2019-02-25] MEDS: ACCU-CHEK XX SCH ×5 (01:48→21:00)
[2019-02-25] MEDS: PANTOPRAZOLE (EC) 40 MG TAB PO SCH (06:34)
[2019-02-25] MEDS: INSULIN ASPART [NOVOLOG] 3 ML PEN SC SCH ×4 (08:00→20:29)
[2019-02-25] MEDS: METOPROLOL (XL) 50 MG TAB PO SCH (08:34)
[2019-02-25] MEDS: CALCIUM ACETATE 667 MG CAP PO SCH ×3 (08:43→18:47)
[2019-02-25] MEDS: CLOPIDOGREL 75 MG TAB PO SCH (08:43)
[2019-02-25] MEDS: DOCUSATE SODIUM 100 MG CAP PO SCH (08:43)
[2019-02-25] MEDS: FOLIC ACID 1 MG TAB PO SCH (08:44)
[2019-02-25] MEDS: LINAGLIPTIN 5 MG TABLET PO SCH (08:44)
[2019-02-25] MEDS: valACYclovir 500 MG TAB PO SCH ×3 (08:44→20:16)
[2019-02-25] MEDS: GABAPENTIN 100 MG CAP PO SCH ×2 (08:44→20:16)
[2019-02-25] MEDS: AZITHROMYCIN 500 MG TAB PO SCH (08:44)
[2019-02-25] MEDS: HEPARIN 5,000 UNIT/1 ML VIAL SC SCH ×2 (08:50→20:25)
[2019-02-25] MEDS: FLUTICASONE 0.05% 16 GM NAS SPRAY NASAL SCH (08:51)
[2019-02-25] MEDS ORDERED: CEFTRIAXONE 1 GM INJ IVPB SCH (09:00)
--- NOTE | 2019-02-25 09:05 | PN ---
DATE: 02/22/2019 SUBJECTIVE: Patient is alert, looks comfortable. Denies pain, no fevers overnight. T-max this morning 100.2. WBC yesterday was 11. No labs this morning. INDWELLINGS: Right upper extremity AV fistula. ANTIMICROBIALS: The patient is on: 1. Rocephin. 2. Valtrex. 3. Zithromax. DIAGNOSTICS: A chest x-ray from yesterday revealed patchy left basilar opacity, possibly representing atelectasis or pneumonia, cardiac pacemaker. PHYSICAL EXAMINATION: GENERAL: This is an obese, chronically ill-appearing, elderly woman who is in no distress. HEENT: Head: Atraumatic, normocephalic. NECK: Supple. CHEST: Rise symmetrical. Breath sounds diminished to bases. HEART: S1, S2. ABDOMEN: Soft, bowel sounds present. EXTREMITIES: Without cyanosis. SKIN: Patient has dried the lesion above her right eye. ASSESSMENT: 1. Shingles, resolving. 2. End-stage renal disease, hemodialysis dependent. 3. Possible pneumonia. 4. Morbid obesity. 5. Diabetes. 6. Hypertension. 7. History of permanent pacemaker. PLAN: The patient remains stable. Lesions are drying. Continue present care, antibiotics. Follow chest x-ray. Dictated By: ADEOLA BRYAN BUSINESS PROCESS ANALYST for LIDA DUONG/VAL Conf#: [id number] DID#: [id number]
[2019-02-25] MEDS: CEFTRIAXONE 1 GM/50 ML (PMX) 50 ML IVPB SCH (13:54)
--- NOTE | 2019-02-25 14:46 | CONS ---
Assessment/Plan Assessment/Plan Hospital Course (Demo Recall) SUBJECTIVE: Patient is alert, looks comfortable. at bedside INDWELLINGS: Right upper extremity AV fistula. ANTIMICROBIALS: 1. Rocephin. 2. Valtrex. 3. Zithromax. PHYSICAL EXAMINATION: GENERAL: This is an obese, chronically ill-appearing, elderly woman who is in no distress. HEENT: Head: Atraumatic, normocephalic. NECK: Supple. CHEST: Rise symmetrical. Breath sounds diminished to bases. HEART: S1, S2. ABDOMEN: Soft, bowel sounds present. EXTREMITIES: Without cyanosis. SKIN: Patient has dried the lesion above her right eye. ASSESSMENT: 1. Shingles, resolving. 2. End-stage renal disease, hemodialysis dependent. 3. Possible pneumonia. 4. Morbid obesity. 5. Diabetes. 6. Hypertension. 7. History of permanent pacemaker. PLAN: The patient remains stable. Lesions are dry. Continue present care, complete abx==> last dose tomorrow, may dc on oral Zithromax for one more days Consultation Date/Type/Reason Admit Date/Time Feb 21, 2019 at 03:02 Initial Consult Date Type of Consult id Date/Time of Note DATE: 02/25/19 TIME: 14:44 Exam/Review of Systems Exam Vitals Vital Signs Date Temp Pulse Resp B/P (MAP) Pulse Ox O2 O2 Flow FiO2 Time Delivery Rate 02/25/19 97.8 60 18 138/68 100 Room Air 14:09 (91) 02/25/19 2.0 13:06 Intake and Output 02/24/19 02/24/19 02/25/19 1515:00 23:00 07:00 IntakeIntake Total 480 ml 420 ml BalanceBalance 480 ml 420 ml Results Result Diagram: 02/25/19 0542 02/25/19 0542 Results 24hrs Laboratory Tests Test 02/24/19 17:39 02/24/19 20:56 02/25/19 05:42 02/25/19 08:17 Bedside Glucose 109 120 118 White Blood Count 8.6 Red Blood Count 3.02 L Hemoglobin 9.4 L Hematocrit 29.6 L Mean Corpuscular 98.0 Volume Mean Corpuscular 31.1 Hemoglobin Mean Corpuscular 31.8 L Hemoglobin Concent Red Cell 17.2 H Distribution Width Platelet Count 349 # Mean Platelet Volume 10.1 Immature 0.600 H Granulocytes % Neutrophils % 72.6 Lymphocytes % 12.0 L Monocytes % 11.8 H Eosinophils % 2.4 Basophils % 0.6 Nucleated Red Blood 0.5 H Cells % Immature 0.050 H Granulocytes # Neutrophils # 6.3 Lymphocytes # 1.0 Monocytes # 1.0 H Eosinophils # 0.2 Basophils # 0.1 Nucleated Red Blood 0.0 Cells # Sodium Level 138 Potassium Level 5.3 H Chloride Level 99 Carbon Dioxide Level 27 Anion Gap 12 Blood Urea Nitrogen 52 H Creatinine 8.56 H Est Glomerular 5 L Filtrat Rate mL/min Glucose Level 122 Calcium Level 9.3 Test 02/25/19 12:26 Bedside Glucose 107 Medications Medication Current Medications Calcium Acetate (Phoslo) 1,334 mg WITH MEALS PO Last administered on 02/25/19 13:58; Admin Dose 1,334 MG; Start 02/21/19 at 12:00 Clopidogrel Bisulfate (plaVIX) 75 mg DAILY PO Last administered on 02/25/19 08:43; Admin Dose 75 MG; Start 02/22/19 at 09:00 Docusate Sodium (Colace) 100 mg DAILY PO Last administered on 02/25/19 08:43; Admin Dose 100 MG; Start 02/22/19 at 09:00 Folic Acid (Folic Acid) 1 mg DAILY PO Last administered on 02/25/19 08:44; Admin Dose 1 MG; Start 02/22/19 at 09:00 Gabapentin (Neurontin) 100 mg BID PO Last administered on 02/25/19 08:44; Admin Dose 100 MG; Start 02/21/19 at 21:00 Hydralazine HCl (Apresoline) 75 mg TID PO Last administered on 02/24/19 20:57; Admin Dose 75 MG; Start 02/21/19 at 13:00 Linagliptin (Tradjenta) 5 mg DAILY PO Last administered on 02/25/19 08:44; Admin Dose 5 MG; Start 02/22/19 at 09:00 Metoprolol Succinate (Toprol Xl) 50 mg DAILY PO Last administered on 02/24/19 08:21; Admin Dose 50 MG; Start 02/22/19 at 09:00 Ondansetron HCl (Zofran Odt) 4 mg Q6H PRN ODT NAUSEA AND/OR VOMITING; Start 02/21/19 at 10:00 Valacyclovir HCl (Valtrex) 1,000 mg TID PO Last administered on 02/25/19 13:58; Admin Dose 1,000 MG; Start 02/21/19 at 13:00 Diagnostic Test (Pha) (Accu-Chek) 1 ea AC MEALS AND BEDTIME XX Last administered on 02/24/19 17:38; Admin Dose 1 EA; Start 02/21/19 at 11:30 Azithromycin (Zithromax) 500 mg DAILY PO Last administered on 02/25/19 08:44; Admin Dose 500 MG; Start 02/22/19 at 09:00 Acetaminophen/ Hydrocodone Bitart (Loving (5/325)) 1 tab Q3H PRN PO MODERATE PAIN LEVEL 4-6; Start 02/21/19 at 18:00 Diagnostic Test (Pha) (Accu-Chek) 1 ea 02 XX ; Start 02/22/19 at 02:00 Insulin Aspart (Novolog Insulin Pen) NOVOLOG *MILD* ALGORITHM WITH MEALS BEDTIME SC Last administered on 02/22/19 17:41; Admin Dose 1 UNIT; Start 02/21/19 at 21:00 Hydralazine HCl (Apresoline) 10 mg Q6H PRN IV SBP >165 ; Start 02/21/19 at 19:30 Pantoprazole (Protonix Tab) 40 mg DAILY@06 PO Last administered on 02/25/19 06:34; Admin Dose 40 MG; Start 02/22/19 at 14:30 Heparin Sodium (Porcine) (Heparin (5000 Units/1ml)) 5,000 unit BID SC Last administered on 02/25/19 08:50; Admin Dose 5,000 UNIT; Start 02/22/19 at 21:00 Epoetin Carlos-epbx (Retacrit (Esrd)) 4,000 unit TuThSa@1700 SC Last administered on 02/23/19 17:51; Admin Dose 4,000 UNIT; Start 02/23/19 at 17:00 Fluticasone Propionate (Flonase 0.05% Nasal) 1 spray DAILY NASAL Last administered on 02/25/19 08:51; Admin Dose 1 SPRAY; Start 02/23/19 at 16:30 Ceftriaxone Sodium 50 ml @ 100 mls/hr DAILY IVPB Last administered on 7/22/19at 13:54; Admin Dose 100 MLS/HR; Start 02/25/19 at 09:00 ADEOLA BRYAN NP Feb 25, 2019 14:46
--- NOTE | 2019-02-25 16:24 | PN ---
Date/Time of Note Date/Time of Note DATE: 02/25/19 TIME: 16:19 Assessment/Plan VTE Prophylaxis Risk score (from Ns)>0 risk: 2 SCD applied (from Ns): No SCD contraindicated: low risk/ambulating Pharmacological prophylaxis: NA/contraindicated Pharm contraindication: low risk/ambulating Lines/Catheters IV Catheter Type [facility]from [facility]): [place] [facility] Assessment/Plan Assessment/Plan .1 Headaches. resolved. 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 The patient has mild leukocytosis, resolved. Currently, the patient does not have any evidence of any meningitis. 2. Basilar opacity with pneumonia. Chest x-ray ordered 3. End stage renal disease, on hemodialysis. 4. Left lower extremity edema, anasarca. 5. Rule out deep venous thrombosis, negative. 6. Hypertension, normotensive now. 7. Diabetes mellitus type II, controlled blood sugar is normal. 8. Hyperlipidemia. 9. History of ovarian tumor. 10. Anemia of CD 11. Overweight 12. Hepatitis B 13. Mild scattered paranasal sinus disease with small mucoid secretion in the right sphenoid sinus, correlate for acute sinusitis. CT scan seen Assessment/Plan tranfer to tele due to arrthymia on HD, repeat labs PT eval when stable cards consult dr drake cw rocephin/azithro /valtrex per ID CW plavix cw trradenta last renay pacemaker eval was 1 month ago Continue with hemodialysis Ophthalmology consult Continue with Epogen Result Diagram: 02/25/19 0542 02/25/19 0542 Results 24hrs Laboratory Tests Test 02/24/19 17:39 02/24/19 20:56 02/25/19 05:42 02/25/19 08:17 Bedside Glucose 109 120 118 White Blood Count 8.6 Red Blood Count 3.02 L Hemoglobin 9.4 L Hematocrit 29.6 L Mean Corpuscular 98.0 Volume Mean Corpuscular 31.1 Hemoglobin Mean Corpuscular 31.8 L Hemoglobin Concent Red Cell 17.2 H Distribution Width Platelet Count 349 # Mean Platelet Volume 10.1 Immature 0.600 H Granulocytes % Neutrophils % 72.6 Lymphocytes % 12.0 L Monocytes % 11.8 H Eosinophils % 2.4 Basophils % 0.6 Nucleated Red Blood 0.5 H Cells % Immature 0.050 H Granulocytes # Neutrophils # 6.3 Lymphocytes # 1.0 Monocytes # 1.0 H Eosinophils # 0.2 Basophils # 0.1 Nucleated Red Blood 0.0 Cells # Sodium Level 138 Potassium Level 5.3 H Chloride Level 99 Carbon Dioxide Level 27 Anion Gap 12 Blood Urea Nitrogen 52 H Creatinine 8.56 H Est Glomerular 5 L Filtrat Rate mL/min Glucose Level 122 Calcium Level 9.3 Test 02/25/19 12:26 Bedside Glucose 107 Subjective 24 Hr Interval Summary Free Text/Dictation Irregular rhthym during HD today pt very weak unable to walk Exam/Review of Systems Exam Vitals Vital Signs Date Temp Pulse Resp B/P (MAP) Pulse Ox O2 O2 Flow FiO2 Time Delivery Rate 02/25/19 97.8 60 18 138/68 100 Room Air 14:09 (91) 02/25/19 2.0 13:06 Intake and Output 02/24/19 02/24/19 02/25/19 1515:00 23:00 07:00 IntakeIntake Total 480 ml 420 ml BalanceBalance 480 ml 420 ml Exam HEENT crusted lesions on rt side of face Neck: supple, no thyromegaly, no carotid bruits Lungs: clear bilaterally, decreased. CVS: regular rate and rhythm, no murmurs Abdomen: soft, bowel sounds present, no hepatosplenomegally, no masses, no rebound or guarding. Obese pacemaker rt fistula Results Results 24hrs Laboratory Tests Test 02/24/19 17:39 02/24/19 20:56 02/25/19 05:42 02/25/19 08:17 Bedside Glucose 109 120 118 White Blood Count 8.6 Red Blood Count 3.02 L Hemoglobin 9.4 L Hematocrit 29.6 L Mean Corpuscular 98.0 Volume Mean Corpuscular 31.1 Hemoglobin Mean Corpuscular 31.8 L Hemoglobin Concent Red Cell 17.2 H Distribution Width Platelet Count 349 # Mean Platelet Volume 10.1 Immature 0.600 H Granulocytes % Neutrophils % 72.6 Lymphocytes % 12.0 L Monocytes % 11.8 H Eosinophils % 2.4 Basophils % 0.6 Nucleated Red Blood 0.5 H Cells % Immature 0.050 H Granulocytes # Neutrophils # 6.3 Lymphocytes # 1.0 Monocytes # 1.0 H Eosinophils # 0.2 Basophils # 0.1 Nucleated Red Blood 0.0 Cells # Sodium Level 138 Potassium Level 5.3 H Chloride Level 99 Carbon Dioxide Level 27 Anion Gap 12 Blood Urea Nitrogen 52 H Creatinine 8.56 H Est Glomerular 5 L Filtrat Rate mL/min Glucose Level 122 Calcium Level 9.3 Test 02/25/19 12:26 Bedside Glucose 107 Medications Medication Current Medications Calcium Acetate (Phoslo) 1,334 mg WITH MEALS PO Last administered on 02/25/19 13:58; Admin Dose 1,334 MG; Start 02/21/19 at 12:00 Clopidogrel Bisulfate (plaVIX) 75 mg DAILY PO Last administered on 02/25/19 08:43; Admin Dose 75 MG; Start 02/22/19 at 09:00 Docusate Sodium (Colace) 100 mg DAILY PO Last administered on 02/25/19 08:43; Admin Dose 100 MG; Start 02/22/19 at 09:00 Folic Acid (Folic Acid) 1 mg DAILY PO Last administered on 02/25/19 08:44; Admin Dose 1 MG; Start 02/22/19 at 09:00 Gabapentin (Neurontin) 100 mg BID PO Last administered on 02/25/19 08:44; Admin Dose 100 MG; Start 02/21/19 at 21:00 Hydralazine HCl (Apresoline) 75 mg TID PO Last administered on 02/24/19 20:57; Admin Dose 75 MG; Start 02/21/19 at 13:00 Linagliptin (Tradjenta) 5 mg DAILY PO Last administered on 02/25/19 08:44; Admin Dose 5 MG; Start 02/22/19 at 09:00 Metoprolol Succinate (Toprol Xl) 50 mg DAILY PO Last administered on 02/24/19 08:21; Admin Dose 50 MG; Start 02/22/19 at 09:00 Ondansetron HCl (Zofran Odt) 4 mg Q6H PRN ODT NAUSEA AND/OR VOMITING; Start 02/21/19 at 10:00 Valacyclovir HCl (Valtrex) 1,000 mg TID PO Last administered on 02/25/19 13:58; Admin Dose 1,000 MG; Start 02/21/19 at 13:00 Diagnostic Test (Pha) (Accu-Chek) 1 ea AC MEALS AND BEDTIME XX Last administered on 02/24/19 17:38; Admin Dose 1 EA; Start 02/21/19 at 11:30 Azithromycin (Zithromax) 500 mg DAILY PO Last administered on 02/25/19 08:44; Admin Dose 500 MG; Start 02/22/19 at 09:00 Acetaminophen/ Hydrocodone Bitart (Sophia (5/325)) 1 tab Q3H PRN PO MODERATE PAIN LEVEL 4-6; Start 02/21/19 at 18:00 Diagnostic Test (Pha) (Accu-Chek) 1 ea 02 XX ; Start 02/22/19 at 02:00 Insulin Aspart (Novolog Insulin Pen) NOVOLOG *MILD* ALGORITHM WITH MEALS BEDTIME SC Last administered on 02/22/19 17:41; Admin Dose 1 UNIT; Start 02/21/19 at 21:00 Hydralazine HCl (Apresoline) 10 mg Q6H PRN IV SBP >165 ; Start 02/21/19 at 19:30 Pantoprazole (Protonix Tab) 40 mg DAILY@06 PO Last administered on 02/25/19at 06:34; Admin Dose 40 MG; Start 02/22/19 at 14:30 Heparin Sodium (Porcine) (Heparin (5000 Units/1ml)) 5,000 unit BID SC Last administered on 02/25/19 08:50; Admin Dose 5,000 UNIT; Start 02/22/19 at 21:00 Epoetin Carlos-epbx (Retacrit (Esrd)) 4,000 unit TuThSa@1700 SC Last administered on 02/23/19 17:51; Admin Dose 4,000 UNIT; Start 02/23/19 at 17:00 Fluticasone Propionate (Flonase 0.05% Nasal) 1 spray DAILY NASAL Last administered on 02/25/19 08:51; Admin Dose 1 SPRAY; Start 02/23/19 at 16:30 Ceftriaxone Sodium 50 ml @ 100 mls/hr DAILY IVPB Last administered on 02/25/19 13:54; Admin Dose 100 MLS/HR; Start 02/25/19 at 09:00 ELIANA NEELY MD Feb 25, 2019 16:24
--- NOTE | 2019-02-25 16:59 | CONS ---
Assessment/Plan Assessment/Plan Hospital Course (Demo Recall) 1. Complete heart block/permanent pacemaker 2. Episode of reported bradycardia by nurses: Most likely secondary to PVCs. Will monitor on telemetry for any significant other and arrhythmia or pacemaker malfunction 3. Herpes zoster infection 4. Renal failure on dialysis 5. Hypertension 6. History of diabetes: Coronary good control Recommendation: Patient will monitor on telemetry. Continue with the beta-gerry and hold only for systolic blood pressure less than 110 Hemodialysis to be continued as per renal Antibiotic management as per internal medicine and ID recommendations Thank you his referral. We will continue to follow along with you YOSEPH PERDOMO MD [facility] Consultation Date/Type/Reason Admit Date/Time Feb 21, 2019 at 03:02 Date of Consultation: Feb 25, 2019 Type of Consult Cardiology Reason for Consultation Arrhythmia Requesting Provider: ELIANA NEELY MD Date/Time of Note DATE: 02/25/19 TIME: 16:54 Hx of Present Illness Interventional cardiology consultation note Chief complaint: Weakness. Herpes zoster Reason for consult: Complete heart block/permanent pacemaker/bradycardia /arrhythmia History of present illness: Thank you for this referral. The patient review of the chart review of the old chart. Patient also is very well-known to me for past many years and has been seen in the office as well as hospitals. This is a very pleasant 68-year-old female with a past medical history of end- stage renal disease on hemodialysis bleed heart block status post permanent pacemaker hypertension, diabetes, pacemaker placement, , dyslipidemia, who was admitted because of increasing lethargy. Patient has had herpes zoster over the past few weeks. She has been on antiviral therapy as an outpatient however she has not been feeling better has been feeling weak and pain in her right side of the face where the lesion is. She was admitted for further work-up and treatment. Patient was getting her routine hemodialysis today. By hemodialysis nurse she was noted to be markedly bradycardic reported heart rate is higher as low as the 40s he denies any chest pain or pressure to me denies any palpitation to me. She has been placed on monitor now currently remains ventricular paced rhythm. Her old record was reviewed patient has been followed up regularly in the office and had regular pacemaker check which has been normal functioning pacemaker antibiotics she does have complete underlying heart block PAST MEDICAL HISTORY: 1. Diabetes. 2. Hypertension. 3. Hyperlipidemia. 4. End-stage renal disease on hemodialysis 5. Atherosclerotic heart disease. 6. Congestive heart failure. 7. History of bronchiectasis. 8. History of pneumonia October 2018 ALLERGIES: None. PAST SURGICAL HISTORY: The patient had ovarian tumor removal, and right fistula creation. 05/20/2014: Dual-chamber (MRI compatible Biotronik ) permanent pacemaker placed by Dr. Perdomo SOCIAL HISTORY: Denies any history of smoking, alcohol or any drug use. Medications were reviewed as per medical reconciliation sheet Family history: No reported history of coronary artery disease Review of system: Patient denies all others except for above-mentioned Past Medical History Home Meds Active Scripts Hydrocodone/Acetaminophen (Aurora 5-325 Tablet) 1 Each Tablet, 1 TAB PO TID PRN for PAIN, #12 TAB Prov:CHIQUITA JAVED MD 02/04/19 Ondansetron (Ondansetron Odt) 4 Mg Tab.rapdis, 4 MG PO Q6H PRN for NAUSEA AND/OR VOMITING, #10 TAB Prov:MK DUGGAN MD 01/28/19 Loperamide Hcl* (Imodium*) 2 Mg Capsule, 2 MG PO .AFTER EA LOOSE BM PRN for DIARRHEA, #20 TAB Prov:MK DUGGAN MD 01/28/19 Ondansetron (Ondansetron Odt) 4 Mg Tab.rapdis, 4 MG PO Q6H PRN for NAUSEA AND/OR VOMITING, #10 TAB Prov:TON ALMEIDA PA-C 01/16/19 Reported Medications Multivit/Ca Carb/B Cmplx/Fa* (Shanti-Horacio*) 1 Tab Tab, 1 TAB PO DAILY for 30 Days, #30 02/21/19 Clopidogrel Bisulfate (Clopidogrel) 75 Mg Tablet, 75 MG PO DAILY for 60 Days, #60 TAB 02/21/19 Gabapentin* (Gabapentin*) 100 Mg Capsule, 100 MG PO BID for 30 Days, #60 02/21/19 Diphenhydramine Hcl (BANOPHEN) 50 Mg Capsule, 50 MG PO DAILY PRN for ALLERGIC REACTION 02/21/19 valAcyclovir Hcl* (valACYclovir Hcl*) 500 Mg Tablet, 1000 MG PO TID, TAB 02/21/19 Hydralazine Hcl* (Hydralazine Hcl*) 25 Mg Tab, 75 MG PO TID, #90 TAB 10/12/18 Linagliptin (TRADJENTA) 5 Mg Tablet, 5 MG PO DAILY, TAB 10/12/18 Metoprolol Succinate* (Toprol XL*) 50 Mg Tab.er.24h, 50 MG PO DAILY, #30 TAB 10/12/18 Calcium Acetate* (Calcium Acetate*) 667 Mg Capsule, 1334 MG PO WITH MEALS, #60 CAP 10/12/18 Folic Acid* (Folic Acid*) 1 Mg Tablet, 1 MG PO DAILY, TAB 10/12/18 Docusate Sodium* (Colace*) 100 Mg Capsule, 100 MG PO DAILY, #30 CAP 10/12/18 Pantoprazole* (Protonix*) 40 Mg Tablet.dr, 40 MG PO DAILY, TAB 10/04/18 Cholecalciferol* (Vitamin D*) 400 Unit Tablet, 400 UNIT PO BID, TAB 10/04/18 Discontinued Scripts Cephalexin* (Keflex*) 500 Mg Capsule, 500 MG PO QID for 5 Days, CAP Prov:ROSELINE TOVAR 02/06/19 Acyclovir* (Zovirax*) 800 Mg Tablet, 800 MG PO 5 TIMES DAILY for 7 Days, TAB Prov:CHIQUITA JAVED MD 02/04/19 Benzonatate* (Tessalon Perle*) 100 Mg Capsule, 100 MG PO Q8H PRN for COUGH, #30 CAP Prov:LIAN ROJAS MD 10/25/18 Medications Current Medications Calcium Acetate (Phoslo) 1,334 mg WITH MEALS PO Last administered on 02/25/19at 13:58; Admin Dose 1,334 MG; Start 02/21/19 at 12:00 Clopidogrel Bisulfate (plaVIX) 75 mg DAILY PO Last administered on 02/25/19at 08:43; Admin Dose 75 MG; Start 02/22/19 at 09:00 Docusate Sodium (Colace) 100 mg DAILY PO Last administered on 02/25/19at 08:43; Admin Dose 100 MG; Start 02/22/19 at 09:00 Folic Acid (Folic Acid) 1 mg DAILY PO Last administered on 02/25/19at 08:44; Admin Dose 1 MG; Start 02/22/19 at 09:00 Gabapentin (Neurontin) 100 mg BID PO Last administered on 02/25/19at 08:44; Admin Dose 100 MG; Start 02/21/19 at 21:00 Hydralazine HCl (Apresoline) 75 mg TID PO Last administered on 02/24/19 20:57; Admin Dose 75 MG; Start 02/21/19 at 13:00 Linagliptin (Tradjenta) 5 mg DAILY PO Last administered on 02/25/19 08:44; Admin Dose 5 MG; Start 02/22/19 at 09:00 Metoprolol Succinate (Toprol Xl) 50 mg DAILY PO Last administered on 02/24/19 08:21; Admin Dose 50 MG; Start 02/22/19 at 09:00 Ondansetron HCl (Zofran Odt) 4 mg Q6H PRN ODT NAUSEA AND/OR VOMITING; Start 02/21/19 at 10:00 Valacyclovir HCl (Valtrex) 1,000 mg TID PO Last administered on 02/25/19 13:58; Admin Dose 1,000 MG; Start 02/21/19 at 13:00 Diagnostic Test (Pha) (Accu-Chek) 1 ea AC MEALS AND BEDTIME XX Last admin istered on 02/24/19 17:38; Admin Dose 1 EA; Start 02/21/19 at 11:30 Azithromycin (Zithromax) 500 mg DAILY PO Last administered on 02/25/19 08:44; Admin Dose 500 MG; Start 02/22/19 at 09:00 Acetaminophen/ Hydrocodone Bitart (Aurora (5/325)) 1 tab Q3H PRN PO MODERATE PAIN LEVEL 4-6; Start 02/21/19 at 18:00 Diagnostic Test (Pha) (Accu-Chek) 1 ea 02 XX ; Start 02/22/19 at 02:00 Insulin Aspart (Novolog Insulin Pen) NOVOLOG *MILD* ALGORITHM WITH MEALS BEDTIME SC Last administered on 02/22/19 17:41; Admin Dose 1 UNIT; Start 02/21/19 at 21:00 Hydralazine HCl (Apresoline) 10 mg Q6H PRN IV SBP >165 ; Start 02/21/19 at 19:30 Pantoprazole (Protonix Tab) 40 mg DAILY@06 PO Last administered on 02/25/19 06:34; Admin Dose 40 MG; Start 02/22/19 at 14:30 Heparin Sodium (Porcine) (Heparin (5000 Units/1ml)) 5,000 unit BID SC Last administered on 02/25/19at 08:50; Admin Dose 5,000 UNIT; Start 02/22/19 at 21:00 Epoetin Carlos-epbx (Retacrit (Esrd)) 4,000 unit TuThSa@1700 SC Last administered on 02/23/19at 17:51; Admin Dose 4,000 UNIT; Start 02/23/19 at 17:00 Fluticasone Propionate (Flonase 0.05% Nasal) 1 spray DAILY NASAL Last administered on 02/25/19at 08:51; Admin Dose 1 SPRAY; Start 02/23/19 at 16:30 Ceftriaxone Sodium 50 ml @ 100 mls/hr DAILY IVPB Last administered on 02/25/19at 13:54; Admin Dose 100 MLS/HR; Start 02/25/19 at 09:00 Allergies: Coded Allergies: No Known Allergy (Unverified , 02/21/19) Past Surgical History Past Surgical Hx: other Social History Smoking Status: Never smoker Exam/Review of Systems Vital Signs Vitals Vital Signs Date Temp Pulse Resp B/P (MAP) Pulse Ox O2 O2 Flow FiO2 Time Delivery Rate 02/25/19 98.4 78 16 142/66 98 Nasal 2.0 16:37 (91) Cannula Intake and Output 02/24/19 02/24/19 02/25/19 1515:00 23:00 07:00 IntakeIntake Total 480 ml 420 ml BalanceBalance 480 ml 420 ml Exam Exam General: no acute distress HEENT: NC/AT. pupils are equal. round. NECK: NO JVD. no stridor. CV: RRR. systolic murmur; no gallop or rubs. PULM: no wheezing or rhonchi. GI: SOFT, NT, ND, no rebound or guarding Extremity: trace B/L LE edema. no clubbing. neuro: awake and alert, OX3. Psych: calm and pleasant rectal: deferred Derm: Right upper forehead with crusted lesions EKG showed ventricular paced rhythm Labs Result Diagram: 02/25/19 0542 02/25/19 1622 Results 24hrs Laboratory Tests Test 02/24/19 17:39 02/24/19 20:56 02/25/19 05:42 02/25/19 08:17 Bedside Glucose 109 120 118 White Blood Count 8.6 Red Blood Count 3.02 L Hemoglobin 9.4 L Hematocrit 29.6 L Mean Corpuscular 98.0 Volume Mean Corpuscular 31.1 Hemoglobin Mean Corpuscular 31.8 L Hemoglobin Concent Red Cell 17.2 H Distribution Width Platelet Count 349 # Mean Platelet Volume 10.1 Immature 0.600 H Granulocytes % Neutrophils % 72.6 Lymphocytes % 12.0 L Monocytes % 11.8 H Eosinophils % 2.4 Basophils % 0.6 Nucleated Red Blood 0.5 H Cells % Immature 0.050 H Granulocytes # Neutrophils # 6.3 Lymphocytes # 1.0 Monocytes # 1.0 H Eosinophils # 0.2 Basophils # 0.1 Nucleated Red Blood 0.0 Cells # Sodium Level 138 Potassium Level 5.3 H Chloride Level 99 Carbon Dioxide Level 27 Anion Gap 12 Blood Urea Nitrogen 52 H Creatinine 8.56 H Est Glomerular 5 L Filtrat Rate mL/min Glucose Level 122 Calcium Level 9.3 Test 02/25/19 12:26 02/25/19 16:22 Bedside Glucose 107 Sodium Level 136 Potassium Level 4.8 Chloride Level 97 Carbon Dioxide Level 25 Anion Gap 14 H Blood Urea Nitrogen 32 #H Creatinine 5.51 #H Est Glomerular 8 L Filtrat Rate mL/min Glucose Level 133 Calcium Level 9.3 Phosphorus Level 4.1 Magnesium Level 2.1 Medications Medications Current Medications Calcium Acetate (Phoslo) 1,334 mg WITH MEALS PO Last administered on 02/25/19at 13:58; Admin Dose 1,334 MG; Start 02/21/19 at 12:00 Clopidogrel Bisulfate (plaVIX) 75 mg DAILY PO Last administered on 02/25/19 08:43; Admin Dose 75 MG; Start 02/22/19 at 09:00 Docusate Sodium (Colace) 100 mg DAILY PO Last administered on 02/25/19 08:43; Admin Dose 100 MG; Start 02/22/19 at 09:00 Folic Acid (Folic Acid) 1 mg DAILY PO Last administered on 02/25/19 08:44; Admin Dose 1 MG; Start 02/22/19 at 09:00 Gabapentin (Neurontin) 100 mg BID PO Last administered on 02/25/19 08:44; Admin Dose 100 MG; Start 02/21/19 at 21:00 Hydralazine HCl (Apresoline) 75 mg TID PO Last administered on 02/24/19 20:57; Admin Dose 75 MG; Start 02/21/19 at 13:00 Linagliptin (Tradjenta) 5 mg DAILY PO Last administered on 02/25/19 08:44; Admin Dose 5 MG; Start 02/22/19 at 09:00 Metoprolol Succinate (Toprol Xl) 50 mg DAILY PO Last administered on 02/24/19 08:21; Admin Dose 50 MG; Start 02/22/19 at 09:00 Ondansetron HCl (Zofran Odt) 4 mg Q6H PRN ODT NAUSEA AND/OR VOMITING; Start 02/21/19 at 10:00 Valacyclovir HCl (Valtrex) 1,000 mg TID PO Last administered on 02/25/19 13:58; Admin Dose 1,000 MG; Start 02/21/19 at 13:00 Diagnostic Test (Pha) (Accu-Chek) 1 ea AC MEALS AND BEDTIME XX Last administered on 02/24/19 17:38; Admin Dose 1 EA; Start 02/21/19 at 11:30 Azithromycin (Zithromax) 500 mg DAILY PO Last administered on 02/25/19 08:44; Admin Dose 500 MG; Start 02/22/19 at 09:00 Acetaminophen/ Hydrocodone Bitart (Aurora (5/325)) 1 tab Q3H PRN PO MODERATE PAIN LEVEL 4-6; Start 02/21/19 at 18:00 Diagnostic Test (Pha) (Accu-Chek) 1 ea 02 XX ; Start 02/22/19 at 02:00 Insulin Aspart (Novolog Insulin Pen) NOVOLOG *MILD* ALGORITHM WITH MEALS BEDTIME SC Last administered on 02/22/19 17:41; Admin Dose 1 UNIT; Start 02/21/19 at 21:00 Hydralazine HCl (Apresoline) 10 mg Q6H PRN IV SBP >165 ; Start 02/21/19 at 19:30 Pantoprazole (Protonix Tab) 40 mg DAILY@06 PO Last administered on 02/25/19 06:34; Admin Dose 40 MG; Start 02/22/19 at 14:30 Heparin Sodium (Porcine) (Heparin (5000 Units/1ml)) 5,000 unit BID SC Last administered on 02/25/19 08:50; Admin Dose 5,000 UNIT; Start 02/22/19 at 21:00 Epoetin Carlos-epbx (Retacrit (Esrd)) 4,000 unit TuThSa@1700 SC Last administered on 02/23/19 17:51; Admin Dose 4,000 UNIT; Start 02/23/19 at 17:00 Fluticasone Propionate (Flonase 0.05% Nasal) 1 spray DAILY NASAL Last administered on 02/25/19 08:51; Admin Dose 1 SPRAY; Start 02/23/19 at 16:30 Ceftriaxone Sodium 50 ml @ 100 mls/hr DAILY IVPB Last administered on 02/25/19 13:54; Admin Dose 100 MLS/HR; Start 02/25/19 at 09:00 YOSEPH PERDOMO MD Feb 25, 2019 16:59
[2019-02-26] MEDS: ACCU-CHEK XX SCH ×6 (02:00→23:44)
[2019-02-26 03:54] VITALS: BP 159/70; PULSE 60; RESP 19
[2019-02-26 04:00] VITALS: PULSE 60
[2019-02-26] MEDS: PANTOPRAZOLE (EC) 40 MG TAB PO SCH (06:00)
[2019-02-26 07:13] VITALS: BP 126/61; PULSE 50; RESP 17
[2019-02-26] MEDS: INSULIN ASPART [NOVOLOG] 3 ML PEN SC SCH ×4 (07:46→20:38)
[2019-02-26] MEDS: FLUTICASONE 0.05% 16 GM NAS SPRAY NASAL SCH (09:00)
[2019-02-26] MEDS: AZITHROMYCIN 500 MG TAB PO SCH (09:46)
[2019-02-26] MEDS: CEFTRIAXONE 1 GM/50 ML (PMX) 50 ML IVPB SCH (09:46)
[2019-02-26] MEDS: GABAPENTIN 100 MG CAP PO SCH ×2 (09:47→20:38)
[2019-02-26] MEDS: LINAGLIPTIN 5 MG TABLET PO SCH (09:47)
[2019-02-26] MEDS: CALCIUM ACETATE 667 MG CAP PO SCH ×3 (09:47→17:38)
[2019-02-26] MEDS: DOCUSATE SODIUM 100 MG CAP PO SCH (09:47)
[2019-02-26] MEDS: CLOPIDOGREL 75 MG TAB PO SCH (09:47)
[2019-02-26] MEDS: FOLIC ACID 1 MG TAB PO SCH (09:47)
[2019-02-26] MEDS: valACYclovir 500 MG TAB PO SCH ×3 (09:48→20:38)
[2019-02-26] MEDS: HEPARIN 5,000 UNIT/1 ML VIAL SC SCH ×2 (09:49→20:45)
[2019-02-26] MEDS: METOPROLOL (XL) 50 MG TAB PO SCH (09:51)
--- NOTE | 2019-02-26 11:20 | PN ---
Date/Time of Note Date/Time of Note DATE: 02/26/19 TIME: 11:17 Assessment/Plan VTE Prophylaxis Risk score (from Ns)>0 risk: 9 SCD applied (from Ns): Yes Pharmacological prophylaxis: NA/contraindicated Pharm contraindication: low risk/ambulating Lines/Catheters IV Catheter Type (from Nrs): Saline Lock Urinary Cath still in place: No Assessment/Plan Assessment/Plan 1Headaches. resolved. 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 The patient has mild leukocytosis, resolved. Currently, the patient does not have any evidence of any meningitis. Little lethargic 2. Basilar opacity with pneumonia. Chest x-ray ordered 3. End stage renal disease, on hemodialysis. 4. Left lower extremity edema, anasarca. 5. Rule out deep venous thrombosis, negative. 6. Hypertension, normotensive now. 7. Diabetes mellitus type II, controlled blood sugar is normal. 8. Hyperlipidemia. 9. History of ovarian tumor. 10. Anemia of CD 11. Overweight 12. Hepatitis B 13. Mild scattered paranasal sinus disease with small mucoid secretion in the right sphenoid sinus, correlate for acute sinusitis. CT scan seen Assessment/Plan cards input appreciated - hd yesterday - dc narcotics as pt little lethargic PT eval cw rocephin/azithro /valtrex per ID CW plavix cw trradenta last renay pacemaker eval was 1 month ago Continue with hemodialysis Ophthalmology consult Continue with Epogen ARU eval, pt needs PT Result Diagram: 02/25/19 0542 02/25/19 1622 Results 24hrs Laboratory Tests Test 02/25/19 12:26 02/25/19 16:22 02/25/19 17:54 02/25/19 20:12 Bedside Glucose 107 125 114 Sodium Level 136 Potassium Level 4.8 Chloride Level 97 Carbon Dioxide Level 25 Anion Gap 14 H Blood Urea Nitrogen 32 #H Creatinine 5.51 #H Est Glomerular 8 L Filtrat Rate mL/min Glucose Level 133 Calcium Level 9.3 Phosphorus Level 4.1 Magnesium Level 2.1 Test 02/26/19 07:36 Bedside Glucose 123 Subjective 24 Hr Interval Summary Free Text/Dictation Feels weak Heart rate improved Exam/Review of Systems Exam Vitals Vital Signs Date Temp Pulse Resp B/P (MAP) Pulse Ox O2 O2 Flow FiO2 Time Delivery Rate 02/26/19 98.5 50 17 126/61 97 07:13 (82) 02/26/19 Nasal 03:54 Cannula 02/25/19 2.0 23:33 Intake and Output 02/25/19 02/25/19 02/26/19 1515:00 23:00 07:00 IntakeIntake Total 50 ml 240 ml 100 ml OutputOutput Total 3500 ml BalanceBalance -3450 ml 240 ml 100 ml Exam HEENT crusted lesions on rt side of face Neck: supple, no thyromegaly, no carotid bruits Lungs: clear bilaterally, decreased. CVS: regular rate and rhythm, no murmurs Abdomen: soft, bowel sounds present, no hepatosplenomegally, no masses, no rebound or guarding. Obese pacemaker rt fistula Results Results 24hrs Laboratory Tests Test 02/25/19 12:26 02/25/19 16:22 02/25/19 17:54 02/25/19 20:12 Bedside Glucose 107 125 114 Sodium Level 136 Potassium Level 4.8 Chloride Level 97 Carbon Dioxide Level 25 Anion Gap 14 H Blood Urea Nitrogen 32 #H Creatinine 5.51 #H Est Glomerular 8 L Filtrat Rate mL/min Glucose Level 133 Calcium Level 9.3 Phosphorus Level 4.1 Magnesium Level 2.1 Test 02/26/19 07:36 Bedside Glucose 123 Medications Medication Current Medications Calcium Acetate (Phoslo) 1,334 mg WITH MEALS PO Last administered on 02/26/19 09:47; Admin Dose 1,334 MG; Start 02/21/19 at 12:00 Clopidogrel Bisulfate (plaVIX) 75 mg DAILY PO Last administered on 02/26/19 09:47; Admin Dose 75 MG; Start 02/22/19 at 09:00 Docusate Sodium (Colace) 100 mg DAILY PO Last administered on 02/26/19 09:47; Admin Dose 100 MG; Start 02/22/19 at 09:00 Folic Acid (Folic Acid) 1 mg DAILY PO Last administered on 02/26/19 09:47; Admin Dose 1 MG; Start 02/22/19 at 09:00 Gabapentin (Neurontin) 100 mg BID PO Last administered on 02/26/19 09:47; Admin Dose 100 MG; Start 02/21/19 at 21:00 Hydralazine HCl (Apresoline) 75 mg TID PO Last administered on 02/26/19 09:48; Admin Dose 75 MG; Start 02/21/19 at 13:00 Linagliptin (Tradjenta) 5 mg DAILY PO Last administered on 02/26/19 09:47; Admin Dose 5 MG; Start 02/22/19 at 09:00 Metoprolol Succinate (Toprol Xl) 50 mg DAILY PO Last administered on 02/26/19 09:51; Admin Dose 50 MG; Start 02/22/19 at 09:00 Ondansetron HCl (Zofran Odt) 4 mg Q6H PRN ODT NAUSEA AND/OR VOMITING; Start 02/21/19 at 10:00 Valacyclovir HCl (Valtrex) 1,000 mg TID PO Last administered on 02/26/19 09:48; Admin Dose 1,000 MG; Start 02/21/19 at 13:00 Diagnostic Test (Pha) (Accu-Chek) 1 ea AC MEALS AND BEDTIME XX Last administered on 02/26/19 07:46; Admin Dose 1 EA; Start 02/21/19 at 11:30 Azithromycin (Zithromax) 500 mg DAILY PO Last administered on 02/26/19 09:46; Admin Dose 500 MG; Start 02/22/19 at 09:00 Diagnostic Test (Pha) (Accu-Chek) 1 ea 02 XX ; Start 02/22/19 at 02:00 Insulin Aspart (Novolog Insulin Pen) NOVOLOG *MILD* ALGORITHM WITH MEALS BEDTIME SC Last administered on 02/22/19 17:41; Admin Dose 1 UNIT; Start 02/21/19 at 21:00 Hydralazine HCl (Apresoline) 10 mg Q6H PRN IV SBP >165 ; Start 02/21/19 at 19:30 Pantoprazole (Protonix Tab) 40 mg DAILY@06 PO Last administered on 02/26/19 06:00; Admin Dose 40 MG; Start 02/22/19 at 14:30 Heparin Sodium (Porcine) (Heparin (5000 Units/1ml)) 5,000 unit BID SC Last administered on 02/26/19 09:49; Admin Dose 5,000 UNIT; Start 02/22/19 at 21:00 Epoetin Carlos-epbx ([facility]ac[facility] (Esrd)) [facility] Last administered on 02/23/19 17:51; Admin Dose 4,000 UNIT; Start 02/23/19 at 17:00 Fluticasone Propionate (Flonase 0.05% Nasal) 1 spray DAILY NASAL Last administered on 02/25/19 08:51; Admin Dose 1 SPRAY; Start 02/23/19 at 16:30 Ceftriaxone Sodium 50 ml @ 100 mls/hr DAILY IVPB Last administered on 02/26/19at 09:46; Admin Dose 100 MLS/HR; Start 02/25/19 at 09:00 ELIANA NEELY MD Feb 26, 2019 11:20
[2019-02-26 11:40] VITALS: BP 126/58; PULSE 109; RESP 17
--- NOTE | 2019-02-26 12:09 | CONS ---
Consult Date/Type/Reason Admit Date/Time Feb 21, 2019 at 03:02 Initial Consult Date 02/25/19 Requesting Provider: ELIANA NEELY MD Date/Time of Note DATE: 02/26/19 TIME: 12:07 Subjective Interventional cardiology follow-up progress note Subjective: Case discussed with the staff and discussed with the patient daughter. Telemetry was reviewed. Patient has remained sinus rhythm with ventricular demand pacemaker. Patient however with frequent PVCs No chest pain no palpitation. She is still weak though Objective: General: no acute distress HEENT: NC/AT. pupils are equal. round. NECK: NO JVD. no stridor. CV: RRR. systolic murmur; no gallop or rubs. PULM: no wheezing or rhonchi. GI: SOFT, NT, ND, no rebound or guarding Extremity: trace B/L LE edema. no clubbing. neuro: awake and alert, OX3. Psych: calm and pleasant rectal: deferred Derm: Right upper forehead with crusted lesions EKG showed ventricular paced rhythm Objective Vitals Vital Signs Date Temp Pulse Resp B/P (MAP) Pulse Ox O2 O2 Flow FiO2 Time Delivery Rate 02/26/19 98.9 109 17 126/58 100 11:40 (80) 02/26/19 Nasal 03:54 Cannula 02/25/19 2.0 23:33 Intake and Output 02/25/19 02/25/19 02/26/19 1515:00 23:00 07:00 IntakeIntake Total 50 ml 240 ml 100 ml OutputOutput Total 3500 ml BalanceBalance -3450 ml 240 ml 100 ml Results/Medications Result Diagram: 02/25/19 0542 02/25/19 1622 Results 24 hrs Laboratory Tests Test 02/25/19 12:26 02/25/19 16:22 02/25/19 17:54 02/25/19 20:12 Bedside Glucose 107 125 114 Sodium Level 136 Potassium Level 4.8 Chloride Level 97 Carbon Dioxide Level 25 Anion Gap 14 H Blood Urea Nitrogen 32 #H Creatinine 5.51 #H Est Glomerular 8 L Filtrat Rate mL/min Glucose Level 133 Calcium Level 9.3 Phosphorus Level 4.1 Magnesium Level 2.1 Test 02/26/19 07:36 02/26/19 11:59 Bedside Glucose 123 117 Home Meds Active Scripts Hydrocodone/Acetaminophen ([place] 5-325 Tablet) 1 Each Tablet, 1 TAB PO TID PRN for PAIN, #12 TAB Prov:CHIQUITA JAVED MD 02/04/19 Ondansetron (Ondansetron Odt) 4 Mg Tab.rapdis, 4 MG PO Q6H PRN for NAUSEA AND/OR VOMITING, #10 TAB Prov:MK DUGGAN MD 01/28/19 Loperamide Hcl* (Imodium*) 2 Mg Capsule, 2 MG PO .AFTER EA LOOSE BM PRN for DIARRHEA, #20 TAB Prov:MK DUGGAN MD 01/28/19 Ondansetron (Ondansetron Odt) 4 Mg Tab.rapdis, 4 MG PO Q6H PRN for NAUSEA AND/OR VOMITING, #10 TAB Prov:TON ALMEIDA PA-C 01/16/19 Reported Medications Multivit/Ca Carb/B Cmplx/Fa* (Shanti-Horacio*) 1 Tab Tab, 1 TAB PO DAILY for 30 Days, #30 02/21/19 Clopidogrel Bisulfate (Clopidogrel) 75 Mg Tablet, 75 MG PO DAILY for 60 Days, #60 TAB 02/21/19 Gabapentin* (Gabapentin*) 100 Mg Capsule, 100 MG PO BID for 30 Days, #60 02/21/19 Diphenhydramine Hcl (BANOPHEN) 50 Mg Capsule, 50 MG PO DAILY PRN for ALLERGIC RE ACTION 02/21/19 valAcyclovir Hcl* (valACYclovir Hcl*) 500 Mg Tablet, 1000 MG PO TID, TAB 02/21/19 Hydralazine Hcl* (Hydralazine Hcl*) 25 Mg Tab, 75 MG PO TID, #90 TAB 10/12/18 Linagliptin (TRADJENTA) 5 Mg Tablet, 5 MG PO DAILY, TAB 10/12/18 Metoprolol Succinate* (Toprol XL*) 50 Mg Tab.er.24h, 50 MG PO DAILY, #30 TAB 10/12/18 Calcium Acetate* (Calcium Acetate*) 667 Mg Capsule, 1334 MG PO WITH MEALS, #60 CAP 10/12/18 Folic Acid* (Folic Acid*) 1 Mg Tablet, 1 MG PO DAILY, TAB 10/12/18 Docusate Sodium* (Colace*) 100 Mg Capsule, 100 MG PO DAILY, #30 CAP 10/12/18 Pantoprazole* (Protonix*) 40 Mg Tablet.dr, 40 MG PO DAILY, TAB 10/04/18 Cholecalciferol* (Vitamin D*) 400 Unit Tablet, 400 UNIT PO BID, TAB 10/04/18 Discontinued Scripts Cephalexin* (Keflex*) 500 Mg Capsule, 500 MG PO QID for 5 Days, CAP Prov:ROSELINE TOVAR 02/06/19 Acyclovir* (Zovirax*) 800 Mg Tablet, 800 MG PO 5 TIMES DAILY for 7 Days, TAB Prov:CHIQUITA JAVED MD 02/04/19 Benzonatate* (Tessalon Perle*) 100 Mg Capsule, 100 MG PO Q8H PRN for COUGH, #30 CAP Prov:LIAN ROJAS MD 10/25/18 Medications Current Medications Calcium Acetate (Phoslo) 1,334 mg WITH MEALS PO Last administered on 02/26/19at 11:58; Admin Dose 1,334 MG; Start 02/21/19 at 12:00 Clopidogrel Bisulfate (plaVIX) 75 mg DAILY PO Last administered on 02/26/19 09 :47; Admin Dose 75 MG; Start 02/22/19 at 09:00 Docusate Sodium (Colace) 100 mg DAILY PO Last administered on 02/26/19 09:47; Admin Dose 100 MG; Start 02/22/19 at 09:00 Folic Acid (Folic Acid) 1 mg DAILY PO Last administered on 02/26/19 09:47; Admin Dose 1 MG; Start 02/22/19 at 09:00 Gabapentin (Neurontin) 100 mg BID PO Last administered on 02/26/19 09:47; Admin Dose 100 MG; Start 02/21/19 at 21:00 Hydralazine HCl (Apresoline) 75 mg TID PO Last administered on 02/26/19 12:00; Admin Dose 75 MG; Start 02/21/19 at 13:00 Linagliptin (Tradjenta) 5 mg DAILY PO Last administered on 02/26/19 09:47; Admin Dose 5 MG; Start 02/22/19 at 09:00 Metoprolol Succinate (Toprol Xl) 50 mg DAILY PO Last administered on 02/26/19 09:51; Admin Dose 50 MG; Start 02/22/19 at 09:00 Ondansetron HCl (Zofran Odt) 4 mg Q6H PRN ODT NAUSEA AND/OR VOMITING; Start 02/21/19 at 10:00 Valacyclovir HCl (Valtrex) 1,000 mg TID PO Last administered on 02/26/19 12:00; Admin Dose 1,000 MG; Start 02/21/19 at 13:00 Diagnostic Test (Pha) (Accu-Chek) 1 ea AC MEALS AND BEDTIME XX Last administered on 02/26/19 12:00; Admin Dose 1 EA; Start 02/21/19 at 11:30 Azithromycin (Zithromax) 500 mg DAILY PO Last administered on 02/26/19 09:46; Admin Dose 500 MG; Start 02/22/19 at 09:00 Diagnostic Test (Pha) (Accu-Chek) 1 ea 02 XX ; Start 02/22/19 at 02:00 Insulin Aspart (Novolog Insulin Pen) NOVOLOG *MILD* ALGORITHM WITH MEALS BEDTIME SC Last administered on 02/22/19 17:41; Admin Dose 1 UNIT; Start 02/21/19 at 21:00 Hydralazine HCl (Apresoline) 10 mg Q6H PRN IV SBP >165 ; Start 02/21/19 at 19:30 Pantoprazole (Protonix Tab) 40 mg DAILY@06 PO Last administered on 02/26/19 06:00; Admin Dose 40 MG; Start 02/22/19 at 14:30 Heparin Sodium (Porcine) (Heparin (5000 Units/1ml)) 5,000 unit BID SC Last administered on 02/26/19 09:49; Admin Dose 5,000 UNIT; Start 02/22/19 at 21:00 Epoetin Carlos-epbx (Retacrit (Esrd)) 4,000 unit TuThSa@1700 SC Last administered on 02/23/19 17:51; Admin Dose 4,000 UNIT; Start 02/23/19 at 17:00 Fluticasone Propionate (Flonase 0.05% Nasal) 1 spray DAILY NASAL Last administered on 02/25/19 08:51; Admin Dose 1 SPRAY; Start 02/23/19 at 16:30 Ceftriaxone Sodium 50 ml @ 100 mls/hr DAILY IVPB Last administered on 7/23/19at 09:46; Admin Dose 100 MLS/HR; Start 02/25/19 at 09:00 Assessment/Plan Hospital Course (Demo Recall) 1. Complete heart block/s/p normal functioning permanent pacemaker 2. Episode of reported bradycardia by nurses: Most likely secondary to PVCs. Will monitor on telemetry for any significant other and arrhythmia or pacemaker malfunction 3. Herpes zoster infection 4. Renal failure on dialysis 5. Hypertension 6. History of diabetes: Coronary good control 7. Ventricular arrhythmias and frequent PVCs Recommendation: Patient will monitor on telemetry. Continue with the beta-gerry and hold only for systolic blood pressure less than 110 Hemodialysis to be continued as per renal Antibiotic/antiviral management as per internal medicine and ID recommendations Thank you his referral. We will continue to follow along with you YOSEPH CARCAMO MD [facility] YOSEPH CARCAMO MD Feb 26, 2019 12:09
--- NOTE | 2019-02-26 13:19 | CONS ---
Assessment/Plan Assessment/Plan Hospital Course (Demo Recall) SUBJECTIVE: No fevers, looks comfortable INDWELLINGS: Right upper extremity AV fistula. ANTIMICROBIALS: 1. Rocephin. 2. Valtrex. 3. Zithromax. PHYSICAL EXAMINATION: GENERAL: This is an obese, chronically ill-appearing, elderly woman who is in no distress. HEENT: Head: Atraumatic, normocephalic. NECK: Supple. CHEST: Rise symmetrical. Breath sounds diminished to bases. HEART: S1, S2. ABDOMEN: Soft, bowel sounds present. EXTREMITIES: Without cyanosis. SKIN: Patient has dried the lesion above her right eye. ASSESSMENT: 1. Shingles, resolving. 2. End-stage renal disease, hemodialysis dependent. 3. Possible pneumonia. 4. Morbid obesity. 5. Diabetes. 6. Hypertension. 7. History of permanent pacemaker. PLAN: The patient remains stable. Dc abx after today's dose Consultation Date/Type/Reason Admit Date/Time Feb 21, 2019 at 03:02 Initial Consult Date Type of Consult id Requesting Provider: ELIANA NEELY MD Date/Time of Note DATE: 02/26/19 TIME: 13:18 Exam/Review of Systems Exam Vitals Vital Signs Date Temp Pulse Resp B/P (MAP) Pulse Ox O2 O2 Flow FiO2 Time Delivery Rate 02/26/19 98.9 109 17 126/58 100 11:40 (80) 02/26/19 Nasal 03:54 Cannula 02/25/19 2.0 23:33 Intake and Output 02/25/19 02/25/19 02/26/19 1515:00 23:00 07:00 IntakeIntake Total 50 ml 240 ml 100 ml OutputOutput Total 3500 ml BalanceBalance -3450 ml 240 ml 100 ml Results Result Diagram: 02/25/19 0542 02/25/19 1622 Results 24hrs Laboratory Tests Test 02/25/19 16:22 02/25/19 17:54 02/25/19 20:12 02/26/19 07:36 Sodium Level 136 Potassium Level 4.8 Chloride Level 97 Carbon Dioxide Level 25 Anion Gap 14 H Blood Urea Nitrogen 32 #H Creatinine 5.51 #H Est Glomerular 8 L Filtrat Rate mL/min Glucose Level 133 Calcium Level 9.3 Phosphorus Level 4.1 Magnesium Level 2.1 Bedside Glucose 125 114 123 Test 02/26/19 11:59 Bedside Glucose 117 Medications Medication Current Medications Calcium Acetate (Phoslo) 1,334 mg WITH MEALS PO Last administered on 02/26/19 11:58; Admin Dose 1,334 MG; Start 02/21/19 at 12:00 Clopidogrel Bisulfate (plaVIX) 75 mg DAILY PO Last administered on 02/26/19 09:47; Admin Dose 75 MG; Start 02/22/19 at 09:00 Docusate Sodium (Colace) 100 mg DAILY PO Last administered on 02/26/19 09:47; Admin Dose 100 MG; Start 02/22/19 at 09:00 Folic Acid (Folic Acid) 1 mg DAILY PO Last administered on 02/26/19 09:47; Admin Dose 1 MG; Start 02/22/19 at 09:00 Gabapentin (Neurontin) 100 mg BID PO Last administered on 02/26/19 09:47; Admin Dose 100 MG; Start 02/21/19 at 21:00 Hydralazine HCl (Apresoline) 75 mg TID PO Last administered on 02/26/19 12:00; Admin Dose 75 MG; Start 02/21/19 at 13:00 Linagliptin (Tradjenta) 5 mg DAILY PO Last administered on 02/26/19 09:47; Admin Dose 5 MG; Start 02/22/19 at 09:00 Metoprolol Succinate (Toprol Xl) 50 mg DAILY PO Last administered on 02/26/19 09:51; Admin Dose 50 MG; Start 02/22/19 at 09:00 Ondansetron HCl (Zofran Odt) 4 mg Q6H PRN ODT NAUSEA AND/OR VOMITING; Start 02/21/19 at 10:00 Valacyclovir HCl (Valtrex) 1,000 mg TID PO Last administered on 02/26/19 12:00; Admin Dose 1,000 MG; Start 02/21/19 at 13:00 Diagnostic Test (Pha) (Accu-Chek) 1 ea AC MEALS AND BEDTIME XX Last administered on 02/26/19 12:00; Admin Dose 1 EA; Start 02/21/19 at 11:30 Azithromycin (Zithromax) 500 mg DAILY PO Last administered on 02/26/19 09:46; Admin Dose 500 MG; Start 02/22/19 at 09:00 Diagnostic Test (Pha) (Accu-Chek) 1 ea 02 XX ; Start 02/22/19 at 02:00 Insulin Aspart (Novolog Insulin Pen) NOVOLOG *MILD* ALGORITHM WITH MEALS BEDTIME SC Last administered on 02/22/19 17:41; Admin Dose 1 UNIT; Start 02/21/19 at 21:00 Hydralazine HCl (Apresoline) 10 mg Q6H PRN IV SBP >165 ; Start 02/21/19 at 19:30 Pantoprazole (Protonix Tab) 40 mg DAILY@06 PO Last administered on 02/26/19 06:00; Admin Dose 40 MG; Start 02/22/19 at 14:30 Heparin Sodium (Porcine) (Heparin (5000 Units/1ml)) 5,000 unit BID SC Last administered on 02/26/19 09:49; Admin Dose 5,000 UNIT; Start 02/22/19 at 21:00 Epoetin Carlos-epbx (Retacrit (Esrd)) 4,000 unit TuThSa@1700 SC Last administered on 02/23/19 17:51; Admin Dose 4,000 UNIT; Start 02/23/19 at 17:00 Fluticasone Propionate (Flonase 0.05% Nasal) 1 spray DAILY NASAL Last administered on 02/25/19 08:51; Admin Dose 1 SPRAY; Start 02/23/19 at 16:30 Ceftriaxone Sodium 50 ml @ 100 mls/hr DAILY IVPB Last administered on 02/26/19 09:46; Admin Dose 100 MLS/HR; Start 02/25/19 at 09:00 ADEOLA BRYAN NP Feb 26, 2019 13:19
[2019-02-26 15:26] VITALS: BP 142/74; PULSE 99; RESP 17
[2019-02-26] MEDS: EPOETIN ALFA-EPBX (ESRD) 4,000 UNIT/ML VIAL SC SCH (17:39)
[2019-02-26 19:39] VITALS: BP 125/58; PULSE 76; RESP 19
[2019-02-27] VITALS (22 sets, daily range): BP systolic 97–176; BP diastolic 51–93; PULSE 56–107; RESP 12–24
[2019-02-27] MEDS: PANTOPRAZOLE (EC) 40 MG TAB PO SCH (05:21)
[2019-02-27] MEDS: ACCU-CHEK XX SCH ×4 (07:25→20:18)
[2019-02-27] MEDS: CALCIUM ACETATE 667 MG CAP PO SCH ×3 (07:55→17:00)
[2019-02-27] MEDS: INSULIN ASPART [NOVOLOG] 3 ML PEN SC SCH ×4 (07:55→20:33)
--- NOTE | 2019-02-27 08:37 | CONS ---
Consult Date/Type/Reason Admit Date/Time Feb 21, 2019 at 03:02 Initial Consult Date 02/25/19 Type of Consultation: cv Requesting Provider: ELIANA NEELY MD Date/Time of Note DATE: 02/27/19 TIME: 08:36 Subjective Interventional cardiology follow-up progress note Subjective: Case discussed with the staff and discussed with the patient Telemetry was reviewed. Patient has remained sinus rhythm with ventricular demand pacemaker. with less frequent PVCs No chest pain no palpitation. She is still weak though Objective: General: no acute distress HEENT: NC/AT. pupils are equal. round. NECK: NO JVD. no stridor. CV: RRR. systolic murmur; no gallop or rubs. PULM: no wheezing or rhonchi. GI: SOFT, NT, ND, no rebound or guarding Extremity: trace B/L LE edema. no clubbing. neuro: Drowsy and sleepy this morning Psych: calm and pleasant rectal: deferred Derm: Right upper forehead with crusted lesions EKG showed ventricular paced rhythm Objective Vitals Vital Signs Date Temp Pulse Resp B/P (MAP) Pulse Ox O2 O2 Flow FiO2 Time Delivery Rate 02/27/19 Nasal 2.0 07:31 Cannula 02/27/19 98.1 58 17 176/78 95 07:20 (110) Intake and Output 02/26/19 02/26/19 02/27/19 1515:00 23:00 07:00 IntakeIntake Total 600 ml 370 ml 460 ml BalanceBalance 600 ml 370 ml 460 ml Results/Medications Result Diagram: 02/25/19 0542 02/25/19 1622 Results 24 hrs Laboratory Tests Test 02/26/19 11:59 02/26/19 17:32 02/26/19 20:37 Bedside Glucose 117 122 139 Home Meds Active Scripts Hydrocodone/Acetaminophen ([place] 5-325 Tablet) 1 Each Tablet, 1 TAB PO TID PRN for PAIN, #12 TAB Prov:CHIQUITA JAVED MD 02/04/19 Ondansetron (Ondansetron Odt) 4 Mg Tab.rapdis, 4 MG PO Q6H PRN for NAUSEA AND/OR VOMITING, #10 TAB Prov:MK DUGGAN MD 01/28/19 Loperamide Hcl* (Imodium*) 2 Mg Capsule, 2 MG PO .AFTER EA LOOSE BM PRN for DIAR ELI, #20 TAB Prov:MK DUGGAN MD 01/28/19 Ondansetron (Ondansetron Odt) 4 Mg Tab.rapdis, 4 MG PO Q6H PRN for NAUSEA AND/OR VOMITING, #10 TAB Prov:TON ALMEIDA-Santiago 01/16/19 Reported Medications Multivit/Ca Carb/B Cmplx/Fa* (Shanti-Horacio*) 1 Tab Tab, 1 TAB PO DAILY for 30 Days, #30 02/21/19 Clopidogrel Bisulfate (Clopidogrel) 75 Mg Tablet, 75 MG PO DAILY for 60 Days, #60 TAB 02/21/19 Gabapentin* (Gabapentin*) 100 Mg Capsule, 100 MG PO BID for 30 Days, #60 02/21/19 Diphenhydramine Hcl (BANOPHEN) 50 Mg Capsule, 50 MG PO DAILY PRN for ALLERGIC REACTION 02/21/19 valAcyclovir Hcl* (valACYclovir Hcl*) 500 Mg Tablet, 1000 MG PO TID, TAB 02/21/19 Hydralazine Hcl* (Hydralazine Hcl*) 25 Mg Tab, 75 MG PO TID, #90 TAB 10/12/18 Linagliptin (TRADJENTA) 5 Mg Tablet, 5 MG PO DAILY, TAB 10/12/18 Metoprolol Succinate* (Toprol XL*) 50 Mg Tab.er.24h, 50 MG PO DAILY, #30 TAB 10/12/18 Calcium Acetate* (Calcium Acetate*) 667 Mg Capsule, 1334 MG PO WITH MEALS, #60 CAP 10/12/18 Folic Acid* (Folic Acid*) 1 Mg Tablet, 1 MG PO DAILY, TAB 10/12/18 Docusate Sodium* (Colace*) 100 Mg Capsule, 100 MG PO DAILY, #30 CAP 10/12/18 Pantoprazole* (Protonix*) 40 Mg Tablet.dr, 40 MG PO DAILY, TAB 10/04/18 Cholecalciferol* (Vitamin D*) 400 Unit Tablet, 400 UNIT PO BID, TAB 10/04/18 Discontinued Scripts Cephalexin* (Keflex*) 500 Mg Capsule, 500 MG PO QID for 5 Days, CAP Prov:ROSELINE TOVAR 02/06/19 Acyclovir* (Zovirax*) 800 Mg Tablet, 800 MG PO 5 TIMES DAILY for 7 Days, TAB Prov:CHIQUITA JAVED MD 02/04/19 Benzonatate* (Tessalon Perle*) 100 Mg Capsule, 100 MG PO Q8H PRN for COUGH, #30 CAP Prov:LIAN ROJAS MD 10/25/18 Medications Current Medications Calcium Acetate (Phoslo) 1,334 mg WITH MEALS PO Last administered on 02/26/19 17:38; Admin Dose 1,334 MG; Start 02/21/19 at 12:00 Clopidogrel Bisulfate (plaVIX) 75 mg DAILY PO Last administered on 02/26/19 09:47; Admin Dose 75 MG; Start 02/22/19 at 09:00 Docusate Sodium (Colace) 100 mg DAILY PO Last administered on 02/26/19 09:47; Admin Dose 100 MG; Start 02/22/19 at 09:00 Folic Acid (Folic Acid) 1 mg DAILY PO Last administered on 02/26/19 09:47; Admin Dose 1 MG; Start 02/22/19 at 09:00 Gabapentin (Neurontin) 100 mg BID PO Last administered on 02/26/19 20:38; Admin Dose 100 MG; Start 02/21/19 at 21:00 Hydralazine HCl (Apresoline) 75 mg TID PO Last administered on 02/26/19 20:39; Admin Dose 75 MG; Start 02/21/19 at 13:00 Linagliptin (Tradjenta) 5 mg DAILY PO Last administered on 02/26/19 09:47; Admin Dose 5 MG; Start 02/22/19 at 09:00 Metoprolol Succinate (Toprol Xl) 50 mg DAILY PO Last administered on 02/26/19 09:51; Admin Dose 50 MG; Start 02/22/19 at 09:00 Ondansetron HCl (Zofran Odt) 4 mg Q6H PRN ODT NAUSEA AND/OR VOMITING; Start 02/21/19 at 10:00 Valacyclovir HCl (Valtrex) 1,000 mg TID PO Last administered on 02/26/19 20:38; Admin Dose 1,000 MG; Start 02/21/19 at 13:00 Diagnostic Test (Pha) (Accu-Chek) 1 ea AC MEALS AND BEDTIME XX Last administered on 02/26/19 17:39; Admin Dose 1 EA; Start 02/21/19 at 11:30 Diagnostic Test (Pha) (Accu-Chek) 1 ea 02 XX ; Start 02/22/19 at 02:00 Insulin Aspart (Novolog Insulin Pen) NOVOLOG *MILD* ALGORITHM WITH MEALS BEDTIME SC Last administered on 02/22/19 17:41; Admin Dose 1 UNIT; Start 02/21/19 at 21:00 Hydralazine HCl (Apresoline) 10 mg Q6H PRN IV SBP >165 ; Start 02/21/19 at 19:30 Pantoprazole (Protonix Tab) 40 mg DAILY@06 PO Last administered on 02/27/19 05:21; Admin Dose 40 MG; Start 02/22/19 at 14:30 Heparin Sodium (Porcine) (Heparin (5000 Units/1ml)) 5,000 unit BID SC Last administered on 02/26/19 20:45; Admin Dose 5,000 UNIT; Start 02/22/19 at 21:00 Epoetin Carlos-epbx (Retacrit (Esrd)) 4,000 unit TuThSa@1700 SC Last administered on 02/26/19 17:39; Admin Dose 4,000 UNIT; Start 02/23/19 at 17:00 Fluticasone Propionate (Flonase 0.05% Nasal) 1 spray DAILY NASAL Last administered on 02/25/19 08:51; Admin Dose 1 SPRAY; Start 02/23/19 at 16:30 Assessment/Plan Hospital Course (Demo Recall) 1. Complete heart block/s/p normal functioning permanent pacemaker 2. Episode of reported bradycardia by nurses: Most likely secondary to PVCs. Will monitor on telemetry for any significant other and arrhythmia or pacemaker malfunction 3. Herpes zoster infection 4. Renal failure on dialysis 5. Hypertension 6. History of diabetes: Coronary good control 7. Ventricular arrhythmias and frequent PVCs Recommendation: Patient will monitor on telemetry. Continue with the beta-gerry and hold only for low blood pressure. There is no indication to hold it for low heart rate since the patient has a normal functioning pacemaker Hemodialysis to be continued as per renal Antibiotic/antiviral management as per internal medicine and ID recommendations Thank you his referral. We will continue to follow along with you YOSEPH CARCAMO MD [facility] YOSEPH CARCAMO MD Feb 27, 2019 08:37
[2019-02-27] MEDS: CLOPIDOGREL 75 MG TAB PO SCH (08:44)
[2019-02-27] MEDS: GABAPENTIN 100 MG CAP PO SCH (08:44)
[2019-02-27] MEDS: valACYclovir 500 MG TAB PO SCH (08:44)
[2019-02-27] MEDS: FOLIC ACID 1 MG TAB PO SCH (08:44)
[2019-02-27] MEDS: DOCUSATE SODIUM 100 MG CAP PO SCH (08:44)
[2019-02-27] MEDS: METOPROLOL (XL) 50 MG TAB PO SCH (08:44)
[2019-02-27] MEDS: LINAGLIPTIN 5 MG TABLET PO SCH (08:44)
[2019-02-27] MEDS: FLUTICASONE 0.05% 16 GM NAS SPRAY NASAL SCH (09:00)
[2019-02-27] MEDS: HEPARIN 5,000 UNIT/1 ML VIAL SC SCH ×2 (09:03→20:37)
--- NOTE | 2019-02-27 11:31 | EN ---
Date/Time of Note Date/Time of Note DATE: 02/27/19 TIME: 11:25 Event Note Medicine Medicine Event Note Rapid response called for unresponsiveness. Briefly, this is a 68 yo woman with ESRD on dialysis who had herpes zoster in the right V1 dermatome several weeks ago. Admitted for lethargy at home but apparently since admission she has been awake and alert. Late this morning during dialysis the patient became unresponsive and would not wake up. Earlier in the morning she had been awake and eating. On my exam the patient had her eyes closed, nasal cannula was on, she is breathing and protecting her airway. P 129, BP 133/63, saturating high 90s on nasal cannula, not in respiratory distress. She groans but does not open her eyes to sternal rub. Pupils are equal and reactive bilaterally. Heart and lungs are both clear to auscultation. I reviewed her MAR. No sedating medications have been given recently. There are no recent labs, most recent were from 02/25. PLAN 1. First, get labs including bmp and ammonia to rule out metabolic encephalopathy. 2. Consider blood and urine cultures. 3. Code stroke, including CT head. 4. Unless condition worsens, can likely continue care on telemetry for now. Ot herwise transfer to ICU. I discussed my recommendations with Dr. Leonardo who was at bedside. 39 minutes critical care time spent with this patient. JEANETTE WOOTEN MD Feb 27, 2019 11:31
--- NOTE | 2019-02-27 12:24 | STROKE ---
Date/Time of Note Date/Time of Note DATE: 02/27/19 TIME: 15:19 Patient Information General Arrival Date Age 68 Gender female Weight 89.2 kg POC Glucose Glucose Result Bedside Glucose - 72 Hours Test 02/24/19 12:23 02/24/19 17:39 02/24/19 20:56 02/25/19 08:17 Bedside 111 109 120 118 Glucose mg/dL (70-220) mg/dL (70-220) mg/dL (70-220) mg/dL (70-220) Test 02/25/19 12:26 02/25/19 17:54 02/25/19 20:12 02/26/19 07:36 Bedside 107 125 114 123 Glucose mg/dL (70-220) mg/dL (70-220) mg/dL (70-220) mg/dL (70-220) Test 02/26/19 11:59 02/26/19 17:32 02/26/19 20:37 02/27/19 09:01 Bedside 117 122 139 154 Glucose mg/dL (70-220) mg/dL (70-220) mg/dL (70-220) mg/dL (70-220) Test 02/27/19 10:58 Bedside 129 Glucose mg/dL (70-220) Vital Signs Vital Signs Vital Signs Date Temp Pulse Resp B/P (MAP) Pulse Ox O2 O2 Flow FiO2 Time Delivery Rate 02/27/19 72 18 110/54 98 Nasal 2.0 09:30 (72) Cannula 02/27/19 98.1 07:20 Patient History Current Medications Allergies: Coded Allergies: No Known Allergy (Unverified , 02/21/19) NIH Stroke Scale NIH Stroke Scale Date/Time Recorded DATE: 02/27/19 TIME: 15:19 Submitted By Javier Resendiz t-PA Imaging Review Date/Time Imaging Reviewed DATE: 02/27/19 TIME: 15:19 t-PA Administration Weight 89.2 kg Recommedation submitted by Javier Resendiz Recommendations Recommendation 68-year-old female with diabetes, hypertension, hyperlipidemia, coronary artery disease, chf, end-stage renal disease admitted on february 21 with encephalopathy. i spoke to the housesmith who ordered this consult and the patient has had waxing and waning course. she has been on valtrex 1000 3 times a day and gabap entin 100 3 times a day. she was in dialysis today when she became unresponsive. no labs of been performed in the past couple of days. her last dialysis was 2 days ago. her usual schedule is monday. at the time of our phone call, the patient was becoming more responsive and waking up. i suggested to the housesmith that this sounds like a toxic/metabolic/i nfectious encephalopathy and her medication list may be the culprit as i have seen many patients with encephalopathy secondary to valtrex toxicity with end- stage renal disease. complete encephalopathy workup should be conducted, neurology should be consulted as an inpatient service, and eeg should be performed. given the vague nature of the last time she was known to be normal, and because this does not sound like a stroke, the patient is not an iv tpa candidate. JAVIER RESENDIZ MD Feb 27, 2019 12:24
--- NOTE | 2019-02-27 12:43 | PN ---
Date/Time of Note Date/Time of Note DATE: 02/27/19 TIME: 12:22 Assessment/Plan VTE Prophylaxis Risk score (from Ns)>0 risk: 9 SCD applied (from Ns): No SCD contraindicated: low risk/ambulating Pharmacological prophylaxis: NA/contraindicated Pharm contraindication: low risk/ambulating Lines/Catheters IV C[facility]ter Type [facility]from [facility] Mid Line Urinary Cath still in place: No Assessment/Plan Hospital Course # AMS likely secondary to metabolic encephalopathy versus seizure versus stroke #Headaches. resolved. 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 The patient has mild leukocytosis, reso lved. Currently, the patient does not have any evidence of any meningitis. Little lethargic #. Basilar opacity with pneumonia. Chest x-ray ordered # End stage renal disease, on hemodialysis. # Left lower extremity edema, anasarca. # Hypertension, normotensive now. 7. Diabetes mellitus type II, controlled blood sugar is normal. 8. Hyperlipidemia. 9. History of ovarian tumor. 10. Anemia of CD 11. Overweight 12. Hepatitis B 13. Mild scattered paranasal sinus disease with small mucoid secretion in the right sphenoid sinus, correlate for acute sinusitis. CT scan seen Assessment/Plan -Stat CT of the head, metabolic wup with labs, ammonia, ABG -Hold Valtrex/gabapentin, she did not receive any narcotics -HD was in progress and was halted - send cx - Stat EEG - ICU care - abx per ID - CW plavix - cw trradenta, fs was 129 today last renay pacemaker eval was 1 month ago Continue with Epogen will reassess again after results Result Diagram: 02/27/19 1142 02/27/19 1142 Results 24hrs Laboratory Tests Test 02/26/19 17:32 02/26/19 20:37 02/27/19 09:01 02/27/19 10:58 Bedside Glucose 122 139 154 129 Blood Gas Blood arterial Specimen Source Arterial Blood 02/27/2019 11:19: Date Drawn 48 AM Arterial Blood pH 7.455 H (Temp corrected) Arterial Blood 38.5 pCO2 (Temp correct) Arterial Blood 122.5 H pO2 (Temp corrected) Arterial Blood 26.5 H HCO3 Arterial Blood 2.5 Base Excess Arterial Blood 98.5 H Oxygen Saturation [place] Test ACCEPTAB Arterial Blood Left Radial Gas Puncture Site Arterial 1.1 Blood Carboxyhemo globin Arterial Blood 0.2 Methemoglobin Blood Gas A-a O2 24.5 H Differential Oxyhemoglobin 97.2 Percent Blood Gas 37.0 Temperature Blood Gas NASAL CANNULA Modality FiO2 27.0 Blood Gas TM Notified Whom Blood Gas 02/27/2019 11:32: Notified Time 26 AM Test 02/27/19 11:42 White Blood Count 7.6 Red Blood Count 2.94 L Hemoglobin 9.3 L Hematocrit 29.4 L Mean Corpuscular 100.0 Volume Mean Corpuscular 31.6 Hemoglobin Mean Corpuscular 31.6 L Hemoglobin Concen t Red Cell 17.4 H Distribution Width Platelet Count 371 Mean Platelet 9.7 Volume Immature 0.700 H Granulocytes % Neutrophils % 73.7 Lymphocytes % 13.6 L Monocytes % 10.6 Eosinophils % 1.0 Basophils % 0.4 Nucleated Red 2.0 H Blood Cells % Immature 0.050 H Granulocytes # Neutrophils # 5.6 Lymphocytes # 1.0 Monocytes # 0.8 Eosinophils # 0.1 Basophils # 0.0 Nucleated Red 0.2 H Blood Cells # Sodium Level 137 Potassium Level 4.7 Chloride Level 98 Carbon Dioxide 26 Level Anion Gap 13 Blood Urea 40 H Nitrogen Creatinine 6.29 H Est Glomerular 7 L Filtrat Rate mL/min Glucose Level 138 Hemoglobin A1c 5.7 Calcium Level 9.7 Ammonia < 9 L Creatine Kinase 107 Creatine Kinase Pending Index Creatinine Kinase Pending MB (Mass) Troponin I Pending Triglycerides 145 Level Cholesterol Level 171 LDL Cholesterol, 100 Calculated HDL Cholesterol 42 Cholesterol/HDL 4.0 Ratio Subjective 24 Hr Interval Summary Free Text/Dictation She was found altered on my physical exam today during rounds. Per family patient had been sleepy yesterday but was answering questions Per he had given her juice this morning Exam/Review of Systems Exam Vitals Vital Signs Date Temp Pulse Resp B/P (MAP) Pulse Ox O2 O2 Flow FiO2 Time Delivery Rate 02/27/19 98.3 68 17 135/79 97 12:00 (97) 02/27/19 Nasal 2.0 09:30 Cannula Intake and Output 02/26/19 02/26/19 02/27/19 1515:00 23:00 07:00 IntakeIntake Total 600 ml 370 ml 460 ml BalanceBalance 600 ml 370 ml 460 ml Exam HEENT crusted lesions on rt side of face, patient did not respond to sternal rub this morning patient was just moaning Neck: supple, no thyromegaly, no carotid bruits Lungs: clear bilaterally, decreased. CVS: regular rate and rhythm, no murmurs Abdomen: soft, bowel sounds present, no hepatosplenomegally, no masses, no rebound or guarding. Obese pacemaker rt fistula Results Results 24hrs Laboratory Tests Test 02/26/19 17:32 02/26/19 20:37 02/27/19 09:01 02/27/19 10:58 Bedside Glucose 122 139 154 129 Blood Gas Blood arterial Specimen Source Arterial Blood 02/27/2019 11:19: Date Drawn 48 AM Arterial Blood pH 7.455 H (Temp corrected) Arterial Blood 38.5 pCO2 (Temp correct) Arterial Blood 122.5 H pO2 (Temp corrected) Arterial Blood 26.5 H HCO3 Arterial Blood 2.5 Base Excess Arterial Blood 98.5 H Oxygen Saturation [place] Test ACCEPTAB Arterial Blood Left Radial Gas Puncture Site Arterial 1.1 Blood Carboxyhemo globin Arterial Blood 0.2 Methemoglobin Blood Gas A-a O2 24.5 H Differential Oxyhemoglobin 97.2 Percent Blood Gas 37.0 Temperature Blood Gas NASAL CANNULA Modality FiO2 27.0 Blood Gas TM Notified Whom Blood Gas 02/27/2019 11:32: Notified Time 26 AM Test 02/27/19 11:42 White Blood Count 7.6 Red Blood Count 2.94 L Hemoglobin 9.3 L Hematocrit 29.4 L Mean Corpuscular 100.0 Volume Mean Corpuscular 31.6 Hemoglobin Mean Corpuscular 31.6 L Hemoglobin Concen t Red Cell 17.4 H Distribution Width Platelet Count 371 Mean Platelet 9.7 Volume Immature 0.700 H Granulocytes % Neutrophils % 73.7 Lymphocytes % 13.6 L Monocytes % 10.6 Eosinophils % 1.0 Basophils % 0.4 Nucleated Red 2.0 H Blood Cells % Immature 0.050 H Granulocytes # Neutrophils # 5.6 Lymphocytes # 1.0 Monocytes # 0.8 Eosinophils # 0.1 Basophils # 0.0 Nucleated Red 0.2 H Blood Cells # Sodium Level 137 Potassium Level 4.7 Chloride Level 98 Carbon Dioxide 26 Level Anion Gap 13 Blood Urea 40 H Nitrogen Creatinine 6.29 H Est Glomerular 7 L Filtrat Rate mL/min Glucose Level 138 Hemoglobin A1c 5.7 Calcium Level 9.7 Ammonia < 9 L Creatine Kinase 107 Creatine Kinase Pending Index Creatinine Kinase Pending MB (Mass) Troponin I Pending Triglycerides 145 Level Cholesterol Level 171 LDL Cholesterol, 100 Calculated HDL Cholesterol 42 Cholesterol/HDL 4.0 Ratio Medications Medication Current Medications Calcium Acetate (Phoslo) 1,334 mg WITH MEALS PO Last administered on 02/26/19 17:38; Admin Dose 1,334 MG; Start 02/21/19 at 12:00 Clopidogrel Bisulfate (plaVIX) 75 mg DAILY PO Last administered on 02/26/19 09:47; Admin Dose 75 MG; Start 02/22/19 at 09:00 Docusate Sodium (Colace) 100 mg DAILY PO Last administered on 02/26/19 09:47; Admin Dose 100 MG; Start 02/22/19 at 09:00 Folic Acid (Folic Acid) 1 mg DAILY PO Last administered on 02/26/19 09:47; Admin Dose 1 MG; Start 02/22/19 at 09:00 Hydralazine HCl (Apresoline) 75 mg TID PO Last administered on 02/26/19 20:39; Admin Dose 75 MG; Start 02/21/19 at 13:00 Linagliptin (Tradjenta) 5 mg DAILY PO Last administered on 02/26/19 09:47; Admin Dose 5 MG; Start 02/22/19 at 09:00 Metoprolol Succinate (Toprol Xl) 50 mg DAILY PO Last administered on 02/26/19 09:51; Admin Dose 50 MG; Start 02/22/19 at 09:00 Ondansetron HCl (Zofran Odt) 4 mg Q6H PRN ODT NAUSEA AND/OR VOMITING; Start 02/21/19 at 10:00 Diagnostic Test (Pha) (Accu-Chek) 1 ea AC MEALS AND BEDTIME XX Last administered on 02/27/19 11:01; Admin Dose 1 EA; Start 02/21/19 at 11:30 Diagnostic Test (Pha) (Accu-Chek) 1 ea 02 XX ; Start 02/22/19 at 02:00 Insulin Aspart (Novolog Insulin Pen) NOVOLOG *MILD* ALGORITHM WITH MEALS BEDTIME SC Last administered on 02/22/19 17:41; Admin Dose 1 UNIT; Start 02/21/19 at 21:00 Hydralazine HCl (Apresoline) 10 mg Q6H PRN IV SBP >165 ; Start 02/21/19 at 19:30 Pantoprazole (Protonix Tab) 40 mg DAILY@06 PO Last administered on 02/27/19at 05:21; Admin Dose 40 MG; Start 02/22/19 at 14:30 Heparin Sodium (Porcine) (Heparin (5000 Units/1ml)) 5,000 unit BID SC Last administered on 02/27/19 09:03; Admin Dose 5,000 UNIT; Start 02/22/19 at 21:00 Epoetin Carlos-epbx (Retacrit (Esrd)) 4,000 unit TuThSa@1700 SC Last administered on 02/26/19 17:39; Admin Dose 4,000 UNIT; Start 02/23/19 at 17:00 Fluticasone Propionate (Flonase 0.05% Nasal) 1 spray DAILY NASAL Last administered on 02/25/19at 08:51; Admin Dose 1 SPRAY; Start 02/23/19 at 16:30 ELIANA NEELY MD Feb 27, 2019 12:43
--- NOTE | 2019-02-27 12:54 | CONS ---
Assessment/Plan Assessment/Plan Hospital Course (Demo Recall) SUBJECTIVE: Patient became progressively more lethargic. She is in no distress. Family at bedside. No fevers overnight. WBC 7.6 platelets [address] of the brain revealed no acute abnormalities INDWELLINGS: Right upper extremity AV fistula. PHYSICAL EXAMINATION: GENERAL: This is an obese, chronically ill-appearing, elderly woman who is in no distress. HEENT: Head: Atraumatic, normocephalic. NECK: Supple. CHEST: Rise symmetrical. Breath sounds diminished to bases. HEART: S1, S2. ABDOMEN: Soft, bowel sounds present. EXTREMITIES: Without cyanosis. SKIN: Patient has dried the lesion above her right eye. ASSESSMENT: 1. Acute encephalopathy thought to be secondary to gabapentin and Valtrex that were discontinued 1. Shingles, resolving. 2. End-stage renal disease, hemodialysis dependent. 3. Possible pneumonia. 4. Morbid obesity. 5. Diabetes. 6. Hypertension. 7. History of permanent pacemaker. PLAN: Patient is hemodynamically stable, off antibiotics, will monitor her clinical status, follow chest x-ray, follow neurology recommendations Consultation Date/Type/Reason Admit Date/Time Feb 21, 2019 at 03:02 Initial Consult Date Type of Consult id Requesting Provider: ELIANA NEELY MD Date/Time of Note DATE: 02/27/19 TIME: 12:53 Exam/Review of Systems Exam Vitals Vital Signs Date Temp Pulse Resp B/P (MAP) Pulse Ox O2 O2 Flow FiO2 Time Delivery Rate 02/27/19 98.3 68 17 135/79 97 12:00 (97) 02/27/19 Nasal 2.0 09:30 Cannula Intake and Output 02/26/19 02/26/19 02/27/19 1515:00 23:00 07:00 IntakeIntake Total 600 ml 370 ml 460 ml BalanceBalance 600 ml 370 ml 460 ml Results Result Diagram: 02/27/19 1142 02/27/19 1142 Results 24hrs Laboratory Tests Test 02/26/19 17:32 02/26/19 20:37 02/27/19 09:01 02/27/19 10:58 Bedside Glucose 122 139 154 129 Blood Gas Blood arterial Specimen Source Arterial Blood 02/27/2019 11:19: Date Drawn 48 AM Arterial Blood pH 7.455 H (Temp corrected) Arterial Blood 38.5 pCO2 (Temp correct) Arterial Blood 122.5 H pO2 (Temp corrected) Arterial Blood 26.5 H HCO3 Arterial Blood 2.5 Base Excess Arterial Blood 98.5 H Oxygen Saturation [place] Test ACCEPTAB Arterial Blood Left Radial Gas Puncture Site Arterial 1.1 Blood Carboxyhemo globin Arterial Blood 0.2 Methemoglobin Blood Gas A-a O2 24.5 H Differential Oxyhemoglobin 97.2 Percent Blood Gas 37.0 Temperature Blood Gas NASAL CANNULA Modality FiO2 27.0 Blood Gas TM Notified Whom Blood Gas 02/27/2019 11:32: Notified Time 26 AM Test 02/27/19 11:42 White Blood Count 7.6 Red Blood Count 2.94 L Hemoglobin 9.3 L Hematocrit 29.4 L Mean Corpuscular 100.0 Volume Mean Corpuscular 31.6 Hemoglobin Mean Corpuscular 31.6 L Hemoglobin Concen t Red Cell 17.4 H Distribution Width Platelet Count 371 Mean Platelet 9.7 Volume Immature 0.700 H Granulocytes % Neutrophils % 73.7 Lymphocytes % 13.6 L Monocytes % 10.6 Eosinophils % 1.0 Basophils % 0.4 Nucleated Red 2.0 H Blood Cells % Immature 0.050 H Granulocytes # Neutrophils # 5.6 Lymphocytes # 1.0 Monocytes # 0.8 Eosinophils # 0.1 Basophils # 0.0 Nucleated Red 0.2 H Blood Cells # Prothrombin Time 13.8 Prothrombin Time 1.1 Ratio INR International 1.05 Normalized Ratio Activated 35.9 H Partial Thrombopl ast Time Sodium Level 137 Potassium Level 4.7 Chloride Level 98 Carbon Dioxide 26 Level Anion Gap 13 Blood Urea 40 H Nitrogen Creatinine 6.29 H Est Glomerular 7 L Filtrat Rate mL/min Glucose Level 138 Hemoglobin A1c 5.7 Calcium Level 9.7 Ammonia < 9 L Creatine Kinase 107 Creatine Kinase 0.7 Index Creatinine Kinase 0.74 MB (Mass) Troponin I 0.026 Triglycerides 145 Level Cholesterol Level 171 LDL Cholesterol, 100 Calculated HDL Cholesterol 42 Cholesterol/HDL 4.0 Ratio Medications Medication Current Medications Calcium Acetate (Phoslo) 1,334 mg WITH MEALS PO Last administered on 02/26/19at 17:38; Admin Dose 1,334 MG; Start 02/21/19 at 12:00 Clopidogrel Bisulfate (plaVIX) 75 mg DAILY PO Last administered on 02/26/19at 09:47; Admin Dose 75 MG; Start 02/22/19 at 09:00 Docusate Sodium (Colace) 100 mg DAILY PO Last administered on 02/26/19 09:47; Admin Dose 100 MG; Start 02/22/19 at 09:00 Folic Acid (Folic Acid) 1 mg DAILY PO Last administered on 02/26/19 09:47; Admin Dose 1 MG; Start 02/22/19 at 09:00 Hydralazine HCl (Apresoline) 75 mg TID PO Last administered on 02/26/19 20:39; Admin Dose 75 MG; Start 02/21/19 at 13:00 Linagliptin (Tradjenta) 5 mg DAILY PO Last administered on 02/26/19 09:47; Admin Dose 5 MG; Start 02/22/19 at 09:00 Metoprolol Succinate (Toprol Xl) 50 mg DAILY PO Last administered on 02/26/19 09:51; Admin Dose 50 MG; Start 02/22/19 at 09:00 Ondansetron HCl (Zofran Odt) 4 mg Q6H PRN ODT NAUSEA AND/OR VOMITING; Start 02/21/19 at 10:00 Diagnostic Test (Pha) (Accu-Chek) 1 ea AC MEALS AND BEDTIME XX Last admi nistered on 02/27/19 11:01; Admin Dose 1 EA; Start 02/21/19 at 11:30 Diagnostic Test (Pha) (Accu-Chek) 1 ea 02 XX ; Start 02/22/19 at 02:00 Insulin Aspart (Novolog Insulin Pen) NOVOLOG *MILD* ALGORITHM WITH MEALS BEDTIME SC Last administered on 02/22/19 17:41; Admin Dose 1 UNIT; Start 02/21/19 at 21:00 Hydralazine HCl (Apresoline) 10 mg Q6H PRN IV SBP >165 ; Start 02/21/19 at 19:30 Pantoprazole (Protonix Tab) 40 mg DAILY@06 PO Last administered on 02/27/19 05:21; Admin Dose 40 MG; Start 02/22/19 at 14:30 Heparin Sodium (Porcine) (Heparin (5000 Units/1ml)) 5,000 unit BID SC Last administered on 02/27/19 09:03; Admin Dose 5,000 UNIT; Start 02/22/19 at 21:00 Epoetin Carlos-epbx (Retacrit (Esrd)) 4,000 unit TuThSa@1700 SC Last administered on 02/26/19at 17:39; Admin Dose 4,000 UNIT; Start 02/23/19 at 17:00 Fluticasone Propionate (Flonase 0.05% Nasal) 1 spray DAILY NASAL Last adminis tered on 02/25/19at 08:51; Admin Dose 1 SPRAY; Start 02/23/19 at 16:30 ADEOLA BRYAN RECEIVING CLERK Feb 27, 2019 12:54
[2019-02-27] MEDS: DEXTROSE 5%-0.45% NACL 1,000 ML IV SCH (17:04)
[2019-02-28] VITALS (42 sets, daily range): BP systolic 116–186; BP diastolic 34–146; PULSE 59–97; RESP 11–25
[2019-02-28] MEDS: hydrALAzine 20 MG INJ IV PRN ×2 (00:47→10:39)
[2019-02-28] MEDS: ACCU-CHEK XX SCH ×5 (02:00→21:00)
--- NOTE | 2019-02-28 05:59 | EEG ---
EEG NOTE Report Details DATE OF TEST: 02/27/19 HISTORY: The patient is a 68-year-old F who presents with altered mental status. This EEG is requested to evaluate for seizures. SEDATION: ? CONDITIONS OF RECORDING: This EEG was recorded digitally on the [employer] machine, using the International 10-20 System of electrodes plus anterior temporals and [place]. STATES SAMPLED: Lethargic. FINDINGS: The background is continuous and grossly symmetric. There is an abundance of EMG artifact throughout. A well-formed posterior dominant rhythm is absent. The remainder of the awake background is predominated by slow activity. Photic stimulation does not elicit any definite driving responses or epileptiform discharges. Hyperventilation was not performed. No focal abnormalities or epileptiform discharges were seen. IMPRESSION: Abnormal electroencephalogram due to: diffuse slowing. COMMENT: The slowing of the background indicates diffuse cortical dysfunction of nonspecific etiology. ROSA KEANE Feb 28, 2019 05:59
[2019-02-28] MEDS: PANTOPRAZOLE (EC) 40 MG TAB PO SCH (06:00)
[2019-02-28] MEDS: CALCIUM ACETATE 667 MG CAP PO SCH ×3 (07:35→17:35)
--- NOTE | 2019-02-28 07:44 | CONS ---
Consult Date/Type/Reason Admit Date/Time Feb 21, 2019 at 03:02 Initial Consult Date 02/25/19 Type of Consultation: cv Requesting Provider: ELIANA NEELY MD Date/Time of Note DATE: 02/28/19 TIME: 07:41 Subjective Interventional cardiology follow-up progress note Subjective: Case discussed with the staff and Telemetry was reviewed. Patient has remained sinus rhythm with ventricular paced. with occasional PVCs No chest pain no palpitation. Patient has been more lethargic and less responsive. She has been transferred to ICU for close monitoring Objective: General: no acute distress HEENT: NC/AT. pupils are equal. round. NECK: NO JVD. no stridor. CV: RRR. systolic murmur; no gallop or rubs. PULM: no wheezing or rhonchi. GI: SOFT, NT, ND, no rebound or guarding Extremity: trace B/L LE edema. no clubbing. neuro: Lethargic. Moves to painful stimuli Psych: calm and pleasant rectal: deferred Derm: Right upper forehead with crusted lesions EKG showed ventricular paced rhythm Head CT done February 27, 2019 shows: 1. Mild generalized cerebral and cerebellar volume loss and nonspecific chronic microvascular ischemic disease. 2. No evidence of intracranial masses hemorrhages or midline shift. 3. Right periorbital soft tissue swelling. No calvarial fractures. Objective Vitals Vital Signs Date Temp Pulse Resp B/P (MAP) Pulse Ox O2 O2 Flow FiO2 Time Delivery Rate 02/28/19 98.3 07:26 02/28/19 77 18 144/47 98 Nasal 2.0 06:00 (79) Cannula 02/28/19 24 05:53 Intake and Output 02/27/19 02/27/19 02/28/19 1414:59 22:59 06:59 IntakeIntake Total 275 ml 80 ml 160 ml OutputOutput Total 1700 ml BalanceBalance -1425 ml 80 ml 160 ml Results/Medications Result Diagram: 02/28/19 0400 02/28/19 0400 Results 24 hrs Laboratory Tests Test 02/27/19 09:01 02/27/19 10:58 02/27/19 11:42 02/27/19 17:03 Bedside Glucose 154 129 119 Blood Gas Blood arterial Specimen Source Arterial Blood 02/27/2019 11:19: Date Drawn 48 AM Arterial Blood pH 7.455 H (Temp corrected) Arterial Blood 38.5 pCO2 (Temp correct) Arterial Blood 122.5 H pO2 (Temp corrected) Arterial Blood 26.5 H HCO3 Arterial Blood 2.5 Base Excess Arterial Blood 98.5 H Oxygen Saturation [place] Test ACCEPTAB Arterial Blood Left Radial Gas Puncture Site Arterial 1.1 Blood Carboxyhemo globin Arterial Blood 0.2 Methemoglobin Blood Gas A-a O2 24.5 H Differential Oxyhemoglobin 97.2 Percent Blood Gas 37.0 Temperature Blood Gas NASAL CANNULA Modality FiO2 27.0 Blood Gas TM Notified Whom Blood Gas 02/27/2019 11:32: Notified Time 26 AM White Blood Count 7.6 Red Blood Count 2.94 L Hemoglobin 9.3 L Hematocrit 29.4 L Mean Corpuscular 100.0 Volume Mean Corpuscular 31.6 Hemoglobin Mean Corpuscular 31.6 L Hemoglobin Concen t Red Cell 17.4 H Distribution Width Platelet Count 371 Mean Platelet 9.7 Volume Immature 0.700 H Granulocytes % Neutrophils % 73.7 Lymphocytes % 13.6 L Monocytes % 10.6 Eosinophils % 1.0 Basophils % 0.4 Nucleated Red 2.0 H Blood Cells % Immature 0.050 H Granulocytes # Neutrophils # 5.6 Lymphocytes # 1.0 Monocytes # 0.8 Eosinophils # 0.1 Basophils # 0.0 Nucleated Red 0.2 H Blood Cells # Prothrombin Time 13.8 Prothrombin Time 1.1 Ratio INR International 1.05 Normalized Ratio Activated 35.9 H Partial Thrombopl ast Time Sodium Level 137 Potassium Level 4.7 Chloride Level 98 Carbon Dioxide 26 Level Anion Gap 13 Blood Urea 40 H Nitrogen Creatinine 6.29 H Est Glomerular 7 L Filtrat Rate mL/min Glucose Level 138 Hemoglobin A1c 5.7 Calcium Level 9.7 Ammonia < 9 L Creatine Kinase 107 Creatine Kinase 0.7 Index Creatinine Kinase 0.74 MB (Mass) Troponin I 0.026 Triglycerides 145 Level Cholesterol Level 171 LDL Cholesterol, 100 Calculated HDL Cholesterol 42 Cholesterol/HDL 4.0 Ratio Test 02/27/19 20:33 02/28/19 02:19 02/28/19 04:00 Bedside Glucose 126 142 White Blood Count 7.9 Red Blood Count 2.85 L Hemoglobin 9.1 L Hematocrit 28.7 L Mean Corpuscular 100.7 Volume Mean Corpuscular 31.9 Hemoglobin Mean Corpuscular 31.7 L Hemoglobin Concen t Red Cell 18.0 H Distribution Width Platelet Count 416 H Mean Platelet 9.8 Volume Immature 0.900 H Granulocytes % Neutrophils % 75.4 Lymphocytes % 9.3 L Monocytes % 13.2 H Eosinophils % 0.6 Basophils % 0.6 Nucleated Red 1.8 H Blood Cells % Immature 0.070 H Granulocytes # Neutrophils # 6.0 Lymphocytes # 0.7 L Monocytes # 1.1 H Eosinophils # 0.1 Basophils # 0.1 Nucleated Red 0.1 H Blood Cells # Sodium Level 137 Potassium Level 5.0 Chloride Level 97 Carbon Dioxide 26 Level Anion Gap 14 H Blood Urea 49 H Nitrogen Creatinine 8.41 #H Est Glomerular 5 L Filtrat Rate mL/min Glucose Level 153 Calcium Level 9.7 Phosphorus Level 5.4 H Magnesium Level 2.3 Home Meds Active Scripts Hydrocodone/Acetaminophen ([place] 5-325 Tablet) 1 Each Tablet, 1 TAB PO TID PRN for PAIN, #12 TAB Prov:CHIQUITA JAVED MD 02/04/19 Ondansetron (Ondansetron Odt) 4 Mg Tab.rapdis, 4 MG PO Q6H PRN for NAUSEA AND/OR VOMITING, #10 TAB Prov:MK DUGGAN MD 01/28/19 Loperamide Hcl* (Imodium*) 2 Mg Capsule, 2 MG PO .AFTER EA LOOSE BM PRN for DIARRHEA, #20 TAB Prov:MK DUGGAN MD 01/28/19 Ondansetron (Ondansetron Odt) 4 Mg Tab.rapdis, 4 MG PO Q6H PRN for NAUSEA AND/OR VOMITING, #10 TAB Prov:TON ALMEIDA PA-C 01/16/19 Reported Medications Multivit/Ca Carb/B Cmplx/Fa* (Shanti-Horacio*) 1 Tab Tab, 1 TAB PO DAILY for 30 Days, #30 02/21/19 Clopidogrel Bisulfate (Clopidogrel) 75 Mg Tablet, 75 MG PO DAILY for 60 Days, #60 TAB 02/21/19 Gabapentin* (Gabapentin*) 100 Mg Capsule, 100 MG PO BID for 30 Days, #60 02/21/19 Diphenhydramine Hcl (BANOPHEN) 50 Mg Capsule, 50 MG PO DAILY PRN for ALLERGIC REACTION 02/21/19 valAcyclovir Hcl* (valACYclovir Hcl*) 500 Mg Tablet, 1000 MG PO TID, TAB 02/21/19 Hydralazine Hcl* (Hydralazine Hcl*) 25 Mg Tab, 75 MG PO TID, #90 TAB 10/12/18 Linagliptin (TRADJENTA) 5 Mg Tablet, 5 MG PO DAILY, TAB 10/12/18 Metoprolol Succinate* (Toprol XL*) 50 Mg Tab.er.24h, 50 MG PO DAILY, #30 TAB 10/12/18 Calcium Acetate* (Calcium Acetate*) 667 Mg Capsule, 1334 MG PO WITH MEALS, #60 CAP 10/12/18 Folic Acid* (Folic Acid*) 1 Mg Tablet, 1 MG PO DAILY, TAB 10/12/18 Docusate Sodium* (Colace*) 100 Mg Capsule, 100 MG PO DAILY, #30 CAP 10/12/18 Pantoprazole* (Protonix*) 40 Mg Tablet.dr, 40 MG PO DAILY, TAB 10/04/18 Cholecalciferol* (Vitamin D*) 400 Unit Tablet, 400 UNIT PO BID, TAB 10/04/18 Discontinued Scripts Cephalexin* (Keflex*) 500 Mg Capsule, 500 MG PO QID for 5 Days, CAP Prov:ROSELINE TOVAR 02/06/19 Acyclovir* (Zovirax*) 800 Mg Tablet, 800 MG PO 5 TIMES DAILY for 7 Days, TAB Prov:CHIQUITA JAVED MD 02/04/19 Benzonatate* (Tessalon Perle*) 100 Mg Capsule, 100 MG PO Q8H PRN for COUGH, #30 CAP Prov:LIAN ROJAS MD 10/25/18 Medications Current Medications Calcium Acetate (Phoslo) 1,334 mg WITH MEALS PO Last administered on 02/26/19at 17:38; Admin Dose 1,334 MG; Start 02/21/19 at 12:00 Clopidogrel Bisulfate (plaVIX) 75 mg DAILY PO Last administered on 02/26/19at 09:47; Admin Dose 75 MG; Start 02/22/19 at 09:00 Docusate Sodium (Colace) 100 mg DAILY PO Last administered on 02/26/19at 09:47; Admin Dose 100 MG; Start 02/22/19 at 09:00 Folic Acid (Folic Acid) 1 mg DAILY PO Last administered on 02/26/19at 09:47; Admin Dose 1 MG; Start 02/22/19 at 09:00 Hydralazine HCl (Apresoline) 75 mg TID PO Last administered on 02/26/19 20:39; Admin Dose 75 MG; Start 02/21/19 at 13:00 Linagliptin (Tradjenta) 5 mg DAILY PO Last administered on 02/26/19 09:47; Admin Dose 5 MG; Start 02/22/19 at 09:00 Metoprolol Succinate (Toprol Xl) 50 mg DAILY PO Last administered on 02/26/19 09:51; Admin Dose 50 MG; Start 02/22/19 at 09:00 Ondansetron HCl (Zofran Odt) 4 mg Q6H PRN ODT NAUSEA AND/OR VOMITING; Start 02/21/19 at 10:00 Diagnostic Test (Pha) (Accu-Chek) 1 ea AC MEALS AND BEDTIME XX Last administered on 02/27/19 17:03; Admin Dose 1 EA; Start 02/21/19 at 11:30 Diagnostic Test (Pha) (Accu-Chek) 1 ea 02 XX ; Start 02/22/19 at 02:00 Insulin Aspart (Novolog Insulin Pen) NOVOLOG *MILD* ALGORITHM WITH MEALS BEDTIME SC Last administered on 02/22/19 17:41; Admin Dose 1 UNIT; Start 02/21/19 at 21:00 Hydralazine HCl (Apresoline) 10 mg Q6H PRN IV SBP >165 Last administered on 02/28/19 00:47; Admin Dose 10 MG; Start 02/21/19 at 19:30 Pantoprazole (Protonix Tab) 40 mg DAILY@06 PO Last administered on 02/27/19 05:21; Admin Dose 40 MG; Start 02/22/19 at 14:30 Heparin Sodium (Porcine) (Heparin (5000 Units/1ml)) 5,000 unit BID SC Last administered on 02/27/19 20:37; Admin Dose 5,000 UNIT; Start 02/22/19 at 21:00 Epoetin Carlos-epbx (Retacrit (Esrd)) 4,000 unit TuThSa@1700 SC Last administered on 02/26/19 17:39; Admin Dose 4,000 UNIT; Start 02/23/19 at 17:00 Fluticasone Propionate (Flonase 0.05% Nasal) 1 spray DAILY NASAL Last administered on 02/25/19at 08:51; Admin Dose 1 SPRAY; Start 02/23/19 at 16:30 Dextrose/Sodium Chloride 1,000 ml @ 20 mls/hr Q24H IV Last administered on 02/27/19at 17:04; Admin Dose 20 MLS/HR; Start 02/27/19 at 16:30 Hydralazine HCl (Apresoline) 20 mg Q6H PRN IV ELEVATED SYSTOLIC BP; Start 02/28/19 at 00:30 Assessment/Plan Hospital Course (Demo Recall) 1. Complete heart block/s/p normal functioning permanent pacemaker 2. Episode of reported bradycardia by nurses: Most likely secondary to PVCs. Will monitor on telemetry for any significant other and arrhythmia or pacemaker malfunction 3. Herpes zoster infection 4. Renal failure on dialysis 5. Hypertension 6. History of diabetes: Coronary good control 7. Ventricular arrhythmias and frequent PVCs 8. Acute encephalopathy and altered level of consciousness: Etiology unclear at this point Recommendation: Patient will monitor on telemetry. Hemodialysis to be continued as per renal Antibiotic/antiviral management as per internal medicine and ID recommendations Consider neurology consultation as well Thank you his referral. We will continue to follow along with you YOSEPH CARCAMO MD [facility] YOSEPH CARCAMO MD Feb 28, 2019 07:44
[2019-02-28] MEDS: INSULIN ASPART [NOVOLOG] 3 ML PEN SC SCH ×4 (07:56→21:00)
--- NOTE | 2019-02-28 08:55 | CONSI ---
Assessment/Plan Assessment/Plan Assessment/Plan (Recall) 68 F c/ ESRD.. and cardiac dysrhythmia NOS s/p PPM..among other comorbidities, who presents for evaluation of malaise, headache, and confusion following a recent forehead shingles eruption. She became obtunded on 02/27, prompting Tx to the ICU, and neurology consultation. 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 An acute cerebrovascular process is not entirely excluded.. CT head was unrevealing EEG was without epileptiform activity P: LP for csf cells, Cx, and vzv pcr Broad antimicrobial coverage including iv acyclovir, pending the above Droplet isolation for now CTA head and neck for further characterization Limit sedating medications where possible Airway protection as indicated Other management and supportive care per primary Consultation Date/Type/Reason Admit Date/Time Feb 21, 2019 at 03:02 Type of Consult Neurology Reason for Consultation ams Requesting Provider: ELIANA NEELY MD Date/Time of Note DATE: 02/28/19 TIME: 08:43 Hx of Present Illness Patient is unable to contribute a Hx. She was reported treated for V1 shingles starting February 14.. She developed subsequent confusion, generalized weakness and headache...prompting hospitalization. Reportedly Tx for pneumonia.. Then on 02/27, became obtunded...for which neurology is consulted. Fevers at home, not here. limited by ams Objective Exam Vitals Vital Signs Date Temp Pulse Resp B/P (MAP) Pulse Ox O2 O2 Flow FiO2 Time Delivery Rate 02/28/19 98.3 07:26 02/28/19 77 18 144/47 98 Nasal 2.0 06:00 (79) Cannula 02/28/19 24 05:53 Intake and Output 02/27/19 02/27/19 02/28/19 1515:00 23:00 07:00 IntakeIntake Total 275 ml 100 ml 140 ml OutputOutput Total 1700 ml BalanceBalance -1425 ml 100 ml 140 ml Exam PE: Gen Appearance: No Apparent Distress HEENT: R forehead vesicular eruption w/ crusting. Cardiovascular: Regular rate Abdomen: Soft Extremities: Dry NE: The patient was obtunded and nonverbal. Cranial nerve examination was limited by mental status. Pupils were equal and reactive to light. There was no afferent pupillary defect. Funduscopic examination was limited. Face was grossly symmetric, w/ present corneal and cough reflexes. Tone was normal. Muscle bulk was normal. I did not see fasciculations. The patient withdrew to noxious stimulation x 4. Coordination and gait testing was limited by mental status. Arm and leg reflexes were within normal limits and symmetric. Lennon's sign was absent. Plantar responses were flexor. Results Result Diagram: 02/28/19 0400 02/28/19 0400 Results 24hrs Laboratory Tests Test 02/27/19 09:01 02/27/19 10:58 02/27/19 11:42 02/27/19 17:03 Bedside Glucose 154 129 119 Blood Gas Blood arterial Specimen Source Arterial Blood 02/27/2019 11:19: Date Drawn 48 AM Arterial Blood pH 7.455 H (Temp corrected) Arterial Blood 38.5 pCO2 (Temp correct) Arterial Blood 122.5 H pO2 (Temp corrected) Arterial Blood 26.5 H HCO3 Arterial Blood 2.5 Base Excess Arterial Blood 98.5 H Oxygen Saturation [place] Test ACCEPTAB Arterial Blood Left Radial Gas Puncture Site Arterial 1.1 Blood Carboxyhemo globin Arterial Blood 0.2 Methemoglobin Blood Gas A-a O2 24.5 H Differential Oxyhemoglobin 97.2 Percent Blood Gas 37.0 Temperature Blood Gas NASAL CANNULA Modality FiO2 27.0 Blood Gas TM Notified Whom Blood Gas 02/27/2019 11:32: Notified Time 26 AM White Blood Count 7.6 Red Blood Count 2.94 L Hemoglobin 9.3 L Hematocrit 29.4 L Mean Corpuscular 100.0 Volume Mean Corpuscular 31.6 Hemoglobin Mean Corpuscular 31.6 L Hemoglobin Concen t Red Cell 17.4 H Distribution Width Platelet Count 371 Mean Platelet 9.7 Volume Immature 0.700 H Granulocytes % Neutrophils % 73.7 Lymphocytes % 13.6 L Monocytes % 10.6 Eosinophils % 1.0 Basophils % 0.4 Nucleated Red 2.0 H Blood Cells % Immature 0.050 H Granulocytes # Neutrophils # 5.6 Lymphocytes # 1.0 Monocytes # 0.8 Eosinophils # 0.1 Basophils # 0.0 Nucleated Red 0.2 H Blood Cells # Prothrombin Time 13.8 Prothrombin Time 1.1 Ratio INR International 1.05 Normalized Ratio Activated 35.9 H Partial Thrombopl ast Time Sodium Level 137 Potassium Level 4.7 Chloride Level 98 Carbon Dioxide 26 Level Anion Gap 13 Blood Urea 40 H Nitrogen Creatinine 6.29 H Est Glomerular 7 L Filtrat Rate mL/min Glucose Level 138 Hemoglobin A1c 5.7 Calcium Level 9.7 Ammonia < 9 L Creatine Kinase 107 Creatine Kinase 0.7 Index Creatinine Kinase 0.74 MB (Mass) Troponin I 0.026 Triglycerides 145 Level Cholesterol Level 171 LDL Cholesterol, 100 Calculated HDL Cholesterol 42 Cholesterol/HDL 4.0 Ratio Test 02/27/19 20:33 02/28/19 02:19 02/28/19 04:00 02/28/19 07:53 Bedside Glucose 126 142 141 White Blood Count 7.9 Red Blood Count 2.85 L Hemoglobin 9.1 L Hematocrit 28.7 L Mean Corpuscular 100.7 Volume Mean Corpuscular 31.9 Hemoglobin Mean Corpuscular 31.7 L Hemoglobin Concen t Red Cell 18.0 H Distribution Width Platelet Count 416 H Mean Platelet 9.8 Volume Immature 0.900 H Granulocytes % Neutrophils % 75.4 Lymphocytes % 9.3 L Monocytes % 13.2 H Eosinophils % 0.6 Basophils % 0.6 Nucleated Red 1.8 H Blood Cells % Immature 0.070 H Granulocytes # Neutrophils # 6.0 Lymphocytes # 0.7 L Monocytes # 1.1 H Eosinophils # 0.1 Basophils # 0.1 Nucleated Red 0.1 H Blood Cells # Sodium Level 137 Potassium Level 5.0 Chloride Level 97 Carbon Dioxide 26 Level Anion Gap 14 H Blood Urea 49 H Nitrogen Creatinine 8.41 #H Est Glomerular 5 L Filtrat Rate mL/min Glucose Level 153 Calcium Level 9.7 Phosphorus Level 5.4 H Magnesium Level 2.3 Past Medical History reviewed Home Meds Active Scripts Hydrocodone/Acetaminophen ([place] 5-325 Tablet) 1 Each Tablet, 1 TAB PO TID PRN for PAIN, #12 TAB Prov:CHIQUITA JAVED MD 02/04/19 Ondansetron (Ondansetron Odt) 4 Mg Tab.rapdis, 4 MG PO Q6H PRN for NAUSEA AND/OR VOMITING, #10 TAB Prov:MK DUGGAN MD 01/28/19 Loperamide Hcl* (Imodium*) 2 Mg Capsule, 2 MG PO .AFTER EA LOOSE BM PRN for DIARRHEA, #20 TAB Prov:MK DUGGAN MD 01/28/19 Ondansetron (Ondansetron Odt) 4 Mg Tab.rapdis, 4 MG PO Q6H PRN for NAUSEA AND/OR VOMITING, #10 TAB Prov:TON ALMEIDA PA-C 01/16/19 Reported Medications Multivit/Ca Carb/B Cmplx/Fa* (Shanti-Horacio*) 1 Tab Tab, 1 TAB PO DAILY for 30 Days, #30 02/21/19 Clopidogrel Bisulfate (Clopidogrel) 75 Mg Tablet, 75 MG PO DAILY for 60 Days, #60 TAB 02/21/19 Gabapentin* (Gabapentin*) 100 Mg Capsule, 100 MG PO BID for 30 Days, #60 02/21/19 Diphenhydramine Hcl (BANOPHEN) 50 Mg Capsule, 50 MG PO DAILY PRN for ALLERGIC REACTION 02/21/19 valAcyclovir Hcl* (valACYclovir Hcl*) 500 Mg Tablet, 1000 MG PO TID, TAB 02/21/19 Hydralazine Hcl* (Hydralazine Hcl*) 25 Mg Tab, 75 MG PO TID, #90 TAB 10/12/18 Linagliptin (TRADJENTA) 5 Mg Tablet, 5 MG PO DAILY, TAB 10/12/18 Metoprolol Succinate* (Toprol XL*) 50 Mg Tab.er.24h, 50 MG PO DAILY, #30 TAB 10/12/18 Calcium Acetate* (Calcium Acetate*) 667 Mg Capsule, 1334 MG PO WITH MEALS, #60 CAP 10/12/18 Folic Acid* (Folic Acid*) 1 Mg Tablet, 1 MG PO DAILY, TAB 10/12/18 Docusate Sodium* (Colace*) 100 Mg Capsule, 100 MG PO DAILY, #30 CAP 10/12/18 Pantoprazole* (Protonix*) 40 Mg Tablet.dr, 40 MG PO DAILY, TAB 10/04/18 Cholecalciferol* (Vitamin D*) 400 Unit Tablet, 400 UNIT PO BID, TAB 10/04/18 Discontinued Scripts Cephalexin* (Keflex*) 500 Mg Capsule, 500 MG PO QID for 5 Days, CAP Prov:ROSELINE TOVAR 02/06/19 Acyclovir* (Zovirax*) 800 Mg Tablet, 800 MG PO 5 TIMES DAILY for 7 Days, TAB Prov:CHIQUITA JAVED MD 02/04/19 Benzonatate* (Tessalon Perle*) 100 Mg Capsule, 100 MG PO Q8H PRN for COUGH, #30 CAP Prov:LIAN ROJAS MD 10/25/18 Medications Current Medications Calcium Acetate (Phoslo) 1,334 mg WITH MEALS PO Last administered on 02/26/19 17:38; Admin Dose 1,334 MG; Start 02/21/19 at 12:00 Clopidogrel Bisulfate (plaVIX) 75 mg DAILY PO Last administered on 02/26/19 09:47; Admin Dose 75 MG; Start 02/22/19 at 09:00 Docusate Sodium (Colace) 100 mg DAILY PO Last administered on 02/26/19 09:47; Admin Dose 100 MG; Start 02/22/19 at 09:00 Folic Acid (Folic Acid) 1 mg DAILY PO Last administered on 02/26/19 09:47; Admin Dose 1 MG; Start 02/22/19 at 09:00 Hydralazine HCl (Apresoline) 75 mg TID PO Last administered on 02/26/19 20:39; Admin Dose 75 MG; Start 02/21/19 at 13:00 Linagliptin (Tradjenta) 5 mg DAILY PO Last administered on 02/26/19 09:47; Admin Dose 5 MG; Start 02/22/19 at 09:00 Metoprolol Succinate (Toprol Xl) 50 mg DAILY PO Last administered on 02/26/19 09:51; Admin Dose 50 MG; Start 02/22/19 at 09:00 Ondansetron HCl (Zofran Odt) 4 mg Q6H PRN ODT NAUSEA AND/OR VOMITING; Start 02/21/19 at 10:00 Diagnostic Test (Pha) (Accu-Chek) 1 ea AC MEALS AND BEDTIME XX Last administered on 02/28/19 07:56; Admin Dose 1 EA; Start 02/21/19 at 11:30 Diagnostic Test (Pha) (Accu-Chek) 1 ea 02 XX ; Start 02/22/19 at 02:00 Insulin Aspart (Novolog Insulin Pen) NOVOLOG *MILD* ALGORITHM WITH MEALS BEDTIME SC Last administered on 02/28/19 07:56; Admin Dose 1 UNIT; Start 02/21/19 at 21:00 Hydralazine HCl (Apresoline) 10 mg Q6H PRN IV SBP >165 Last administered on 02/28/19 00:47; Admin Dose 10 MG; Start 02/21/19 at 19:30 Pantoprazole (Protonix Tab) 40 mg DAILY@06 PO Last administered on 02/27/19 05:21; Admin Dose 40 MG; Start 02/22/19 at 14:30 Heparin Sodium (Porcine) (Heparin (5000 Units/1ml)) 5,000 unit BID SC Last administered on 02/27/19 20:37; Admin Dose 5,000 UNIT; Start 02/22/19 at 21:00 Epoetin Carlos-epbx (Retacrit (Esrd)) 4,000 unit TuThSa@1700 SC Last administered on 02/26/19 17:39; Admin Dose 4,000 UNIT; Start 02/23/19 at 17:00 Fluticasone Propionate (Flonase 0.05% Nasal) 1 spray DAILY NASAL Last administered on 02/25/19 08:51; Admin Dose 1 SPRAY; Start 02/23/19 at 16:30 Dextrose/Sodium Chloride 1,000 ml @ 20 mls/hr Q24H IV Last administered on 02/27/19 17:04; Admin Dose 20 MLS/HR; Start 02/27/19 at 16:30 Hydralazine HCl (Apresoline) 20 mg Q6H PRN IV ELEVATED SYSTOLIC BP; Start 02/28/19 at 00:30 Allergies: Coded Allergies: No Known Allergy (Unverified , 02/21/19) Past Surgical History Past Surgical Hx: other Social History Smoking Status: Never smoker ROSA KEANE Feb 28, 2019 08:55
[2019-02-28] MEDS: LINAGLIPTIN 5 MG TABLET PO SCH (09:00)
[2019-02-28] MEDS: METOPROLOL (XL) 50 MG TAB PO SCH (09:00)
[2019-02-28] MEDS: DOCUSATE SODIUM 100 MG CAP PO SCH (09:00)
[2019-02-28] MEDS: FLUTICASONE 0.05% 16 GM NAS SPRAY NASAL SCH (09:00)
[2019-02-28] MEDS: HEPARIN 5,000 UNIT/1 ML VIAL SC SCH ×2 (09:00→21:23)
[2019-02-28] MEDS: CLOPIDOGREL 75 MG TAB PO SCH (09:00)
[2019-02-28] MEDS: FOLIC ACID 1 MG TAB PO SCH (09:00)
--- NOTE | 2019-02-28 10:02 | PN ---
Date/Time of Note Date/Time of Note DATE: 02/28/19 TIME: 10:02 Assessment/Plan VTE Prophylaxis Risk score (from [facility] [place])>0 risk: 8 SCD applied (from [facility]): No SCD contraindicated: low risk/ambulating Pharmacological prophylaxis: NA/contraindicated Pharm contraindication: low risk/ambulating Lines/Catheters IV Catheter Type (from [facility] Mid Line Urinary Cath still in place: No Assessment/Plan Hospital Course # AMS likely secondary to metabolic encephalopathy versus seizure versus stroke #Headaches. resolved. 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 The patient has mild leukocytosis, reso lved. Currently, the patient does not have any evidence of any meningitis. Little lethargic #. Basilar opacity with pneumonia. Chest x-ray ordered # End stage renal disease, on hemodialysis. # Left lower extremity edema, anasarca. # Hypertension, normotensive now. DUPLICATE Result Diagram: 02/28/19 0400 02/28/19 0400 Results 24hrs Laboratory Tests Test 02/27/19 10:58 02/27/19 11:42 02/27/19 17:03 02/27/19 20:33 Blood Gas Blood arterial Specimen Source Arterial Blood 02/27/2019 11:19: Date Drawn 48 AM Arterial Blood pH 7.455 H (Temp corrected) Arterial Blood 38.5 pCO2 (Temp correct) Arterial Blood 122.5 H pO2 (Temp corrected) Arterial Blood 26.5 H HCO3 Arterial Blood 2.5 Base Excess Arterial Blood 98.5 H Oxygen Saturation [place] Test ACCEPTAB Arterial Blood Left Radial Gas Puncture Site Arterial 1.1 Blood Carboxyhemo globin Arterial Blood 0.2 Methemoglobin Blood Gas A-a O2 24.5 H Differential Oxyhemoglobin 97.2 Percent Blood Gas 37.0 Temperature Blood Gas NASAL CANNULA Modality FiO2 27.0 Blood Gas TM Notified Whom Blood Gas 02/27/2019 11:32: Notified Time 26 AM Bedside Glucose 129 119 126 White Blood Count 7.6 Red Blood Count 2.94 L Hemoglobin 9.3 L Hematocrit 29.4 L Mean Corpuscular 100.0 Volume Mean Corpuscular 31.6 Hemoglobin Mean Corpuscular 31.6 L Hemoglobin Concen t Red Cell 17.4 H Distribution Width Platelet Count 371 Mean Platelet 9.7 Volume Immature 0.700 H Granulocytes % Neutrophils % 73.7 Lymphocytes % 13.6 L Monocytes % 10.6 Eosinophils % 1.0 Basophils % 0.4 Nucleated Red 2.0 H Blood Cells % Immature 0.050 H Granulocytes # Neutrophils # 5.6 Lymphocytes # 1.0 Monocytes # 0.8 Eosinophils # 0.1 Basophils # 0.0 Nucleated Red 0.2 H Blood Cells # Prothrombin Time 13.8 Prothrombin Time 1.1 Ratio INR International 1.05 Normalized Ratio Activated 35.9 H Partial Thrombopl ast Time Sodium Level 137 Potassium Level 4.7 Chloride Level 98 Carbon Dioxide 26 Level Anion Gap 13 Blood Urea 40 H Nitrogen Creatinine 6.29 H Est Glomerular 7 L Filtrat Rate mL/min Glucose Level 138 Hemoglobin A1c 5.7 Calcium Level 9.7 Ammonia < 9 L Creatine Kinase 107 Creatine Kinase 0.7 Index Creatinine Kinase 0.74 MB (Mass) Troponin I 0.026 Triglycerides 145 Level Cholesterol Level 171 LDL Cholesterol, 100 Calculated HDL Cholesterol 42 Cholesterol/HDL 4.0 Ratio Test 02/28/19 02:19 02/28/19 04:00 02/28/19 07:53 Bedside Glucose 142 141 White Blood Count 7.9 Red Blood Count 2.85 L Hemoglobin 9.1 L Hematocrit 28.7 L Mean Corpuscular 100.7 Volume Mean Corpuscular 31.9 Hemoglobin Mean Corpuscular 31.7 L Hemoglobin Concen t Red Cell 18.0 H Distribution Width Platelet Count 416 H Mean Platelet 9.8 Volume Immature 0.900 H Granulocytes % Neutrophils % 75.4 Lymphocytes % 9.3 L Monocytes % 13.2 H Eosinophils % 0.6 Basophils % 0.6 Nucleated Red 1.8 H Blood Cells % Immature 0.070 H Granulocytes # Neutrophils # 6.0 Lymphocytes # 0.7 L Monocytes # 1.1 H Eosinophils # 0.1 Basophils # 0.1 Nucleated Red 0.1 H Blood Cells # Sodium Level 137 Potassium Level 5.0 Chloride Level 97 Carbon Dioxide 26 Level Anion Gap 14 H Blood Urea 49 H Nitrogen Creatinine 8.41 #H Est Glomerular 5 L Filtrat Rate mL/min Glucose Level 153 Calcium Level 9.7 Phosphorus Level 5.4 H Magnesium Level 2.3 Subjective 24 Hr Interval Summary Free Text/Dictation DUPILCATE Exam/Review of Systems Exam Vitals Vital Signs Date Temp Pulse Resp B/P (MAP) Pulse Ox O2 O2 Flow FiO2 Time Delivery Rate 02/28/19 98.3 07:26 02/28/19 77 18 144/47 98 Nasal 2.0 06:00 (79) Cannula 02/28/19 24 05:53 Intake and Output 02/27/19 02/27/19 02/28/19 1414:59 22:59 06:59 IntakeIntake Total 275 ml 80 ml 160 ml OutputOutput Total 1700 ml BalanceBalance -1425 ml 80 ml 160 ml Exam DUPLICATE Results Results 24hrs Laboratory Tests Test 02/27/19 10:58 02/27/19 11:42 02/27/19 17:03 02/27/19 20:33 Blood Gas Blood arterial Specimen Source Arterial Blood 02/27/2019 11:19: Date Drawn 48 AM Arterial Blood pH 7.455 H (Temp corrected) Arterial Blood 38.5 pCO2 (Temp correct) Arterial Blood 122.5 H pO2 (Temp corrected) Arterial Blood 26.5 H HCO3 Arterial Blood 2.5 Base Excess Arterial Blood 98.5 H Oxygen Saturation [place] Test ACCEPTAB Arterial Blood Left Radial Gas Puncture Site Arterial 1.1 Blood Carboxyhemo globin Arterial Blood 0.2 Methemoglobin Blood Gas A-a O2 24.5 H Differential Oxyhemoglobin 97.2 Percent Blood Gas 37.0 Temperature Blood Gas NASAL CANNULA Modality FiO2 27.0 Blood Gas TM Notified Whom Blood Gas 02/27/2019 11:32: Notified Time 26 AM Bedside Glucose 129 119 126 White Blood Count 7.6 Red Blood Count 2.94 L Hemoglobin 9.3 L Hematocrit 29.4 L Mean Corpuscular 100.0 Volume Mean Corpuscular 31.6 Hemoglobin Mean Corpuscular 31.6 L Hemoglobin Concen t Red Cell 17.4 H Distribution Width Platelet Count 371 Mean Platelet 9.7 Volume Immature 0.700 H Granulocytes % Neutrophils % 73.7 Lymphocytes % 13.6 L Monocytes % 10.6 Eosinophils % 1.0 Basophils % 0.4 Nucleated Red 2.0 H Blood Cells % Immature 0.050 H Granulocytes # Neutrophils # 5.6 Lymphocytes # 1.0 Monocytes # 0.8 Eosinophils # 0.1 Basophils # 0.0 Nucleated Red 0.2 H Blood Cells # Prothrombin Time 13.8 Prothrombin Time 1.1 Ratio INR International 1.05 Normalized Ratio Activated 35.9 H Partial Thrombopl ast Time Sodium Level 137 Potassium Level 4.7 Chloride Level 98 Carbon Dioxide 26 Level Anion Gap 13 Blood Urea 40 H Nitrogen Creatinine 6.29 H Est Glomerular 7 L Filtrat Rate mL/min Glucose Level 138 Hemoglobin A1c 5.7 Calcium Level 9.7 Ammonia < 9 L Creatine Kinase 107 Creatine Kinase 0.7 Index Creatinine Kinase 0.74 MB (Mass) Troponin I 0.026 Triglycerides 145 Level Cholesterol Level 171 LDL Cholesterol, 100 Calculated HDL Cholesterol 42 Cholesterol/HDL 4.0 Ratio Test 02/28/19 02:19 02/28/19 04:00 02/28/19 07:53 Bedside Glucose 142 141 White Blood Count 7.9 Red Blood Count 2.85 L Hemoglobin 9.1 L Hematocrit 28.7 L Mean Corpuscular 100.7 Volume Mean Corpuscular 31.9 Hemoglobin Mean Corpuscular 31.7 L Hemoglobin Concen t Red Cell 18.0 H Distribution Width Platelet Count 416 H Mean Platelet 9.8 Volume Immature 0.900 H Granulocytes % Neutrophils % 75.4 Lymphocytes % 9.3 L Monocytes % 13.2 H Eosinophils % 0.6 Basophils % 0.6 Nucleated Red 1.8 H Blood Cells % Immature 0.070 H Granulocytes # Neutrophils # 6.0 Lymphocytes # 0.7 L Monocytes # 1.1 H Eosinophils # 0.1 Basophils # 0.1 Nucleated Red 0.1 H Blood Cells # Sodium Level 137 Potassium Level 5.0 Chloride Level 97 Carbon Dioxide 26 Level Anion Gap 14 H Blood Urea 49 H Nitrogen Creatinine 8.41 #H Est Glomerular 5 L Filtrat Rate mL/min Glucose Level 153 Calcium Level 9.7 Phosphorus Level 5.4 H Magnesium Level 2.3 Medications Medication Current Medications Calcium Acetate (Phoslo) 1,334 mg WITH MEALS PO Last administered on 02/26/19 17:38; Admin Dose 1,334 MG; Start 02/21/19 at 12:00 Clopidogrel Bisulfate (plaVIX) 75 mg DAILY PO Last administered on 02/26/19 09:47; Admin Dose 75 MG; Start 02/22/19 at 09:00 Docusate Sodium (Colace) 100 mg DAILY PO Last administered on 02/26/19 09:47; Admin Dose 100 MG; Start 02/22/19 at 09:00 Folic Acid (Folic Acid) 1 mg DAILY PO Last administered on 02/26/19 09:47; Admin Dose 1 MG; Start 02/22/19 at 09:00 Hydralazine HCl (Apresoline) 75 mg TID PO Last administered on 02/26/19 20:39; Admin Dose 75 MG; Start 02/21/19 at 13:00 Linagliptin (Tradjenta) 5 mg DAILY PO Last administered on 02/26/19 09:47; Admin Dose 5 MG; Start 02/22/19 at 09:00 Metoprolol Succinate (Toprol Xl) 50 mg DAILY PO Last administered on 02/26/19 09:51; Admin Dose 50 MG; Start 02/22/19 at 09:00 Ondansetron HCl (Zofran Odt) 4 mg Q6H PRN ODT NAUSEA AND/OR VOMITING; Start 02/21/19 at 10:00 Diagnostic Test (Pha) (Accu-Chek) 1 ea AC MEALS AND BEDTIME XX Last administered on 02/28/19 07:56; Admin Dose 1 EA; Start 02/21/19 at 11:30 Diagnostic Test (Pha) (Accu-Chek) 1 ea 02 XX ; Start 02/22/19 at 02:00 Insulin Aspart (Novolog Insulin Pen) NOVOLOG *MILD* ALGORITHM WITH MEALS BEDTIME SC Last administered on 02/28/19 07:56; Admin Dose 1 UNIT; Start 02/21/19 at 21:00 Hydralazine HCl (Apresoline) 10 mg Q6H PRN IV SBP >165 Last administered on 02/28/19 00:47; Admin Dose 10 MG; Start 02/21/19 at 19:30 Pantoprazole (Protonix Tab) 40 mg DAILY@06 PO Last administered on 02/27/19 05:21; Admin Dose 40 MG; Start 02/22/19 at 14:30 Heparin Sodium (Porcine) (Heparin (5000 Units/1ml)) 5,000 unit BID SC Last administered on 02/27/19 20:37; Admin Dose 5,000 UNIT; Start 02/22/19 at 21:00 Epoetin Carlos-epbx (Retacrit (Esrd)) 4,000 unit TuThSa@1700 SC Last administered on 02/26/19 17:39; Admin Dose 4,000 UNIT; Start 02/23/19 at 17:00 Fluticasone Propionate (Flonase 0.05% Nasal) 1 spray DAILY NASAL Last administered on 7/22/19at 08:51; Admin Dose 1 SPRAY; Start 02/23/19 at 16:30 Dextrose/Sodium Chloride 1,000 ml @ 20 mls/hr Q24H IV Last administered on 02/27/19at 17:04; Admin Dose 20 MLS/HR; Start 02/27/19 at 16:30 Hydralazine HCl (Apresoline) 20 mg Q6H PRN IV ELEVATED SYSTOLIC BP; Start 02/28/19 at 00:30 ELIANA NEELY MD Feb 28, 2019 10:02
--- NOTE | 2019-02-28 10:04 | PN ---
Date/Time of Note Date/Time of Note DATE: 02/28/19 TIME: 10:04 Assessment/Plan VTE Prophylaxis Risk score (from [facility])>0 risk: 8 SCD applied (from [facility]): No SCD contraindicated: low risk/ambulating Pharmacological prophylaxis: NA/contraindicated Pharm contraindication: low risk/ambulating Lines/Catheters IV Catheter Type (from [facility]): Mid Line Urinary Cath still in place: No Assessment/Plan Hospital Course # AMS likely secondary to metabolic encephalopathy due to meds vs encephalitis ? herpes versus seizure versus stroke. per neuro unlikely stroke EEG slowing #Headaches. resolved. 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 The patient has mild leukocytosis, resolve d. Currently, the patient does not have any evidence of any meningitis. Little lethargic #. Basilar opacity with pneumonia. Chest x-ray ordered # End stage renal disease, on hemodialysis. # Left lower extremity edema, anasarca. # Hypertension, normotensive now. 7. Diabetes mellitus type II, controlled blood sugar is normal. 8. Hyperlipidemia. 9. History of ovarian tumor. 10. Anemia of CD 11. Overweight 12. Hepatitis B 13. Mild scattered paranasal sinus disease with small mucoid secretion in the right sphenoid sinus, correlate for acute sinusitis. CT scan seen Assessment/Plan - pt able to maintain airway> will call pulomnary - HD today for wash out -ct angio, isolation rpecautions - LP today - iv vanco/cefepime per ID, 1 Dose of aclovir per ID and neuro -Hold Valtrex/gabapentin, she did not receive any narcotics - CW plavix - cw trradenta, - d5.1/2 NS while npo - aspiration precautions last renay pacemaker eval was 1 month ago Continue with Epogen Result Diagram: 02/28/19 0400 02/28/19 0400 Results 24hrs Laboratory Tests Test 02/27/19 10:58 02/27/19 11:42 02/27/19 17:03 02/27/19 20:33 Blood Gas Blood arterial Specimen Source Arterial Blood 02/27/2019 11:19: Date Drawn 48 AM Arterial Blood pH 7.455 H (Temp corrected) Arterial Blood 38.5 pCO2 (Temp correct) Arterial Blood 122.5 H pO2 (Temp corrected) Arterial Blood 26.5 H HCO3 Arterial Blood 2.5 Base Excess Arterial Blood 98.5 H Oxygen Saturation [place] Test ACCEPTAB Arterial Blood Left Radial Gas Puncture Site Arterial 1.1 Blood Carboxyhemo globin Arterial Blood 0.2 Methemoglobin Blood Gas A-a O2 24.5 H Differential Oxyhemoglobin 97.2 Percent Blood Gas 37.0 Temperature Blood Gas NASAL CANNULA Modality FiO2 27.0 Blood Gas TM Notified Whom Blood Gas 02/27/2019 11:32: Notified Time 26 AM Bedside Glucose 129 119 126 White Blood Count 7.6 Red Blood Count 2.94 L Hemoglobin 9.3 L Hematocrit 29.4 L Mean Corpuscular 100.0 Volume Mean Corpuscular 31.6 Hemoglobin Mean Corpuscular 31.6 L Hemoglobin Concen t Red Cell 17.4 H Distribution Width Platelet Count 371 Mean Platelet 9.7 Volume Immature 0.700 H Granulocytes % Neutrophils % 73.7 Lymphocytes % 13.6 L Monocytes % 10.6 Eosinophils % 1.0 Basophils % 0.4 Nucleated Red 2.0 H Blood Cells % Immature 0.050 H Granulocytes # Neutrophils # 5.6 Lymphocytes # 1.0 Monocytes # 0.8 Eosinophils # 0.1 Basophils # 0.0 Nucleated Red 0.2 H Blood Cells # Prothrombin Time 13.8 Prothrombin Time 1.1 Ratio INR International 1.05 Normalized Ratio Activated 35.9 H Partial Thrombopl ast Time Sodium Level 137 Potassium Level 4.7 Chloride Level 98 Carbon Dioxide 26 Level Anion Gap 13 Blood Urea 40 H Nitrogen Creatinine 6.29 H Est Glomerular 7 L Filtrat Rate mL/min Glucose Level 138 Hemoglobin A1c 5.7 Calcium Level 9.7 Ammonia < 9 L Creatine Kinase 107 Creatine Kinase 0.7 Index Creatinine Kinase 0.74 MB (Mass) Troponin I 0.026 Triglycerides 145 Level Cholesterol Level 171 LDL Cholesterol, 100 Calculated HDL Cholesterol 42 Cholesterol/HDL 4.0 Ratio Test 02/28/19 02:19 02/28/19 04:00 02/28/19 07:53 Bedside Glucose 142 141 White Blood Count 7.9 Red Blood Count 2.85 L Hemoglobin 9.1 L Hematocrit 28.7 L Mean Corpuscular 100.7 Volume Mean Corpuscular 31.9 Hemoglobin Mean Corpuscular 31.7 L Hemoglobin Concen t Red Cell 18.0 H Distribution Width Platelet Count 416 H Mean Platelet 9.8 Volume Immature 0.900 H Granulocytes % Neutrophils % 75.4 Lymphocytes % 9.3 L Monocytes % 13.2 H Eosinophils % 0.6 Basophils % 0.6 Nucleated Red 1.8 H Blood Cells % Immature 0.070 H Granulocytes # Neutrophils # 6.0 Lymphocytes # 0.7 L Monocytes # 1.1 H Eosinophils # 0.1 Basophils # 0.1 Nucleated Red 0.1 H Blood Cells # Sodium Level 137 Potassium Level 5.0 Chloride Level 97 Carbon Dioxide 26 Level Anion Gap 14 H Blood Urea 49 H Nitrogen Creatinine 8.41 #H Est Glomerular 5 L Filtrat Rate mL/min Glucose Level 153 Calcium Level 9.7 Phosphorus Level 5.4 H Magnesium Level 2.3 Subjective 24 Hr Interval Summary Free Text/Dictation Pt still obtunded today able to maintain airway grimaces to sternal rub Exam/Review of Systems Exam Vitals Vital Signs Date Temp Pulse Resp B/P (MAP) Pulse Ox O2 O2 Flow FiO2 Time Delivery Rate 02/28/19 98.3 07:26 02/28/19 77 18 144/47 98 Nasal 2.0 06:00 (79) Cannula 02/28/19 05:53 Intake and Output 02/27/19 02/27/19 02/28/19 1414:59 22:59 06:59 IntakeIntake Total 275 ml 80 ml 160 ml OutputOutput Total 1700 ml BalanceBalance -1425 ml 80 ml 160 ml Exam Exam HEENT crusted lesions on rt side of face, grimaces on sternal rub, dont follow comands moves all extremities no neck rigity iveth Neck: supple, no thyromegaly, no carotid bruits Lungs: clear bilaterally, decreased. CVS: regular rate and rhythm, no murmurs Abdomen: soft, bowel sounds present, no hepatosplenomegally, no masses, no rebound or guarding. Obese pacemaker rt fistula cn nerve exam limited reflexes 2 + Results Results 24hrs Laboratory Tests Test 02/27/19 10:58 02/27/19 11:42 02/27/19 17:03 02/27/19 20:33 Blood Gas Blood arterial Specimen Source Arterial Blood 02/27/2019 11:19: Date Drawn 48 AM Arterial Blood pH 7.455 H (Temp corrected) Arterial Blood 38.5 pCO2 (Temp correct) Arterial Blood 122.5 H pO2 (Temp corrected) Arterial Blood 26.5 H HCO3 Arterial Blood 2.5 Base Excess Arterial Blood 98.5 H Oxygen Saturation [place] Test ACCEPTAB Arterial Blood Left Radial Gas Puncture Site Arterial 1.1 Blood Carboxyhemo globin Arterial Blood 0.2 Methemoglobin Blood Gas A-a O2 24.5 H Differential Oxyhemoglobin 97.2 Percent Blood Gas 37.0 Temperature Blood Gas NASAL CANNULA Modality FiO2 27.0 Blood Gas TM Notified Whom Blood Gas 02/27/2019 11:32: Notified Time 26 AM Bedside Glucose 129 119 126 White Blood Count 7.6 Red Blood Count 2.94 L Hemoglobin 9.3 L Hematocrit 29.4 L Mean Corpuscular 100.0 Volume Mean Corpuscular 31.6 Hemoglobin Mean Corpuscular 31.6 L Hemoglobin Concen t Red Cell 17.4 H Distribution Width Platelet Count 371 Mean Platelet 9.7 Volume Immature 0.700 H Granulocytes % Neutrophils % 73.7 Lymphocytes % 13.6 L Monocytes % 10.6 Eosinophils % 1.0 Basophils % 0.4 Nucleated Red 2.0 H Blood Cells % Immature 0.050 H Granulocytes # Neutrophils # 5.6 Lymphocytes # 1.0 Monocytes # 0.8 Eosinophils # 0.1 Basophils # 0.0 Nucleated Red 0.2 H Blood Cells # Prothrombin Time 13.8 Prothrombin Time 1.1 Ratio INR International 1.05 Normalized Ratio Activated 35.9 H Partial Thrombopl ast Time Sodium Level 137 Potassium Level 4.7 Chloride Level 98 Carbon Dioxide 26 Level Anion Gap 13 Blood Urea 40 H Nitrogen Creatinine 6.29 H Est Glomerular 7 L Filtrat Rate mL/min Glucose Level 138 Hemoglobin A1c 5.7 Calcium Level 9.7 Ammonia < 9 L Creatine Kinase 107 Creatine Kinase 0.7 Index Creatinine Kinase 0.74 MB (Mass) Troponin I 0.026 Triglycerides 145 Level Cholesterol Level 171 LDL Cholesterol, 100 Calculated HDL Cholesterol 42 Cholesterol/HDL 4.0 Ratio Test 02/28/19 02:19 02/28/19 04:00 02/28/19 07:53 Bedside Glucose 142 141 White Blood Count 7.9 Red Blood Count 2.85 L Hemoglobin 9.1 L Hematocrit 28.7 L Mean Corpuscular 100.7 Volume Mean Corpuscular 31.9 Hemoglobin Mean Corpuscular 31.7 L Hemoglobin Concen t Red Cell 18.0 H Distribution Width Platelet Count 416 H Mean Platelet 9.8 Volume Immature 0.900 H Granulocytes % Neutrophils % 75.4 Lymphocytes % 9.3 L Monocytes % 13.2 H Eosinophils % 0.6 Basophils % 0.6 Nucleated Red 1.8 H Blood Cells % Immature 0.070 H Granulocytes # Neutrophils # 6.0 Lymphocytes # 0.7 L Monocytes # 1.1 H Eosinophils # 0.1 Basophils # 0.1 Nucleated Red 0.1 H Blood Cells # Sodium Level 137 Potassium Level 5.0 Chloride Level 97 Carbon Dioxide 26 Level Anion Gap 14 H Blood Urea 49 H Nitrogen Creatinine 8.41 #H Est Glomerular 5 L Filtrat Rate mL/min Glucose Level 153 Calcium Level 9.7 Phosphorus Level 5.4 H Magnesium Level 2.3 Medications Medication Current Medications Calcium Acetate (Phoslo) 1,334 mg WITH MEALS PO Last administered on 02/26/19 17:38; Admin Dose 1,334 MG; Start 02/21/19 at 12:00 Clopidogrel Bisulfate (plaVIX) 75 mg DAILY PO Last administered on 02/26/19 09:47; Admin Dose 75 MG; Start 02/22/19 at 09:00 Docusate Sodium (Colace) 100 mg DAILY PO Last administered on 02/26/19 09:47; Admin Dose 100 MG; Start 02/22/19 at 09:00 Folic Acid (Folic Acid) 1 mg DAILY PO Last administered on 02/26/19 09:47; Admin Dose 1 MG; Start 02/22/19 at 09:00 Hydralazine HCl (Apresoline) 75 mg TID PO Last administered on 02/26/19 20:39; Admin Dose 75 MG; Start 02/21/19 at 13:00 Linagliptin (Tradjenta) 5 mg DAILY PO Last administered on 02/26/19 09:47; Admin Dose 5 MG; Start 02/22/19 at 09:00 Metoprolol Succinate (Toprol Xl) 50 mg DAILY PO Last administered on 02/26/19 09:51; Admin Dose 50 MG; Start 02/22/19 at 09:00 Ondansetron HCl (Zofran Odt) 4 mg Q6H PRN ODT NAUSEA AND/OR VOMITING; Start 02/21/19 at 10:00 Diagnostic Test (Pha) (Accu-Chek) 1 ea AC MEALS AND BEDTIME XX Last administered on 02/28/19 07:56; Admin Dose 1 EA; Start 02/21/19 at 11:30 Diagnostic Test (Pha) (Accu-Chek) 1 ea 02 XX ; Start 02/22/19 at 02:00 Insulin Aspart (Novolog Insulin Pen) NOVOLOG *MILD* ALGORITHM WITH MEALS BEDTIME SC Last administered on 02/28/19 07:56; Admin Dose 1 UNIT; Start 02/21/19 at 21:00 Hydralazine HCl (Apresoline) 10 mg Q6H PRN IV SBP >165 Last administered on 02/28/19 00:47; Admin Dose 10 MG; Start 02/21/19 at 19:30 Pantoprazole (Protonix Tab) 40 mg DAILY@06 PO Last administered on 02/27/19 05:21; Admin Dose 40 MG; Start 02/22/19 at 14:30 Heparin Sodium (Porcine) (Heparin (5000 Units/1ml)) 5,000 unit BID SC Last adm inistered on 02/27/19 20:37; Admin Dose 5,000 UNIT; Start 02/22/19 at 21:00 Epoetin Carlos-epbx (Retacrit (Esrd)) 4,000 unit TuThSa@1700 SC Last administered on 02/26/19 17:39; Admin Dose 4,000 UNIT; Start 02/23/19 at 17:00 Fluticasone Propionate (Flonase 0.05% Nasal) 1 spray DAILY NASAL Last admi nistered on 02/25/19 08:51; Admin Dose 1 SPRAY; Start 02/23/19 at 16:30 Dextrose/Sodium Chloride 1,000 ml @ 20 mls/hr Q24H IV Last administered on 02/27/19 17:04; Admin Dose 20 MLS/HR; Start 02/27/19 at 16:30 Hydralazine HCl (Apresoline) 20 mg Q6H PRN IV ELEVATED SYSTOLIC BP; Start 02/28/19 at 00:30 ELIANA NEELY MD Feb 28, 2019 10:04
[2019-02-28] MEDS ORDERED: VANCOMYCIN IV PER PHARMACY XX SCH (11:00)
[2019-02-28] MEDS ORDERED: IODIXANOL LOCM 100 ML BTL ONE (11:05)
[2019-02-28] MEDS ORDERED: SOD CHLORIDE 0.9% 100 ML ONE (11:05)
[2019-02-28] MEDS ORDERED: ACYCLOVIR 500 MG in SOD CHLORIDE 0.9% 100 ML IVPB ONE (11:30)
--- NOTE | 2019-02-28 11:31 | CONS ---
Assessment/Plan Assessment/Plan Assessment/Plan (Daily) Chest x-ray was reviewed from yesterday which is showing minimal pulmonary vascular congestion. Assessment and recommendations; 1. Patient admitted with recent history of right periorbital herpes zoster infection with significant worsening in mental status. Etiology is unclear. Possibly Valtrex induced versus meningitis. 2. Other comorbidities include history of chronic renal failure, dialysis dependent. History of hypertension, diabetes and CHF which is clinically compensated. Continue current supportive care. Patient at this point does not warrant intubation. Patient awaiting lumbar puncture by interventional radiologist. Being followed by [facility] adf consultant and neurologist. If the patient's mental status worsens to the point where she can not protect her airway then she would require intubation. I did have a detailed discussion with the patient's daughter at bedside and answered all her questions. Consultation Date/Type/Reason Admit Date/Time Feb 21, 2019 at 03:02 Date of Consultation: Feb 28, 2019 Type of Consult Pulmonary/critical care Pulmonary critical care consult requested for evaluation of altered mental status. Consultation is specifically to evaluate for possible intubation. Patient is a 68-year-old lady who was admitted to the hospital with complaints of not feeling well. Patient has been diagnosed with right periorbital herpes zoster infection. Patient has been on acyclovir. Over the last 12 hours the patient mental status has worsened to the point where the patient always essentially unresponsive. Patient has been transferred to ICU for closer observation. By the time I saw the patient, patient is noncommunicative and unresponsive but did not appear to be in any distress. Past medical history; 1. Chronic renal failure, dialysis dependent. 2. History of pacemaker placement. 3. History of CHF, hypertension and episodes of pneumonia. 4. History of ovarian tumor. 5. History of diabetes. 6. Chronic anemia. Medications; reviewed. Allergies; none. Social history; patient is a non-smoker. Family history; noncontributory. Patient does have a supportive family. Occupational history; patient is a housewife. Review of system; unable to be obtained. General exam; elderly woman, noncommunicative and unresponsive. Currently in no distress. Date/Time of Note DATE: 02/28/19 TIME: 11:26 Past Medical History Home Meds Active Scripts Hydrocodone/Acetaminophen ([place] 5-325 Tablet) 1 Each Tablet, 1 TAB PO TID PRN for PAIN, #12 TAB Prov:HOOKS-HI,CHIQUITA MD 02/04/19 Ondansetron (Ondansetron Odt) 4 Mg Tab.rapdis, 4 MG PO Q6H PRN for NAUSEA AND/OR VOMITING, #10 TAB Prov:MK DUGGAN MD 01/28/19 Loperamide Hcl* (Imodium*) 2 Mg Capsule, 2 MG PO .AFTER EA LOOSE BM PRN for DIARRHEA, #20 TAB Prov:MK DUGGAN MD 01/28/19 Ondansetron (Ondansetron Odt) 4 Mg Tab.rapdis, 4 MG PO Q6H PRN for NAUSEA AND/OR VOMITING, #10 TAB Prov:TON ALMEIDA PA-C 01/16/19 Reported Medications Multivit/Ca Carb/B Cmplx/Fa* (Shanti-Horacio*) 1 Tab Tab, 1 TAB PO DAILY for 30 Days, #30 02/21/19 Clopidogrel Bisulfate (Clopidogrel) 75 Mg Tablet, 75 MG PO DAILY for 60 Days, #60 TAB 02/21/19 Gabapentin* (Gabapentin*) 100 Mg Capsule, 100 MG PO BID for 30 Days, #60 02/21/19 Diphenhydramine Hcl (BANOPHEN) 50 Mg Capsule, 50 MG PO DAILY PRN for ALLERGIC REACTION 02/21/19 valAcyclovir Hcl* (valACYclovir Hcl*) 500 Mg Tablet, 1000 MG PO TID, TAB 02/21/19 Hydralazine Hcl* (Hydralazine Hcl*) 25 Mg Tab, 75 MG PO TID, #90 TAB 10/12/18 Linagliptin (TRADJENTA) 5 Mg Tablet, 5 MG PO DAILY, TAB 10/12/18 Metoprolol Succinate* (Toprol XL*) 50 Mg Tab.er.24h, 50 MG PO DAILY, #30 TAB 10/12/18 Calcium Acetate* (Calcium Acetate*) 667 Mg Capsule, 1334 MG PO WITH MEALS, #60 CAP 10/12/18 Folic Acid* (Folic Acid*) 1 Mg Tablet, 1 MG PO DAILY, TAB 10/12/18 Docusate Sodium* (Colace*) 100 Mg Capsule, 100 MG PO DAILY, #30 CAP 10/12/18 Pantoprazole* (Protonix*) 40 Mg Tablet.dr, 40 MG PO DAILY, TAB 10/04/18 Cholecalciferol* (Vitamin D*) 400 Unit Tablet, 400 UNIT PO BID, TAB 10/04/18 Discontinued Scripts Cephalexin* (Keflex*) 500 Mg Capsule, 500 MG PO QID for 5 Days, CAP Prov:ROSELINE TOVAR 02/06/19 Acyclovir* (Zovirax*) 800 Mg Tablet, 800 MG PO 5 TIMES DAILY for 7 Days, TAB Prov:HOOKSCHIQUITA CRUZ MD 02/04/19 Benzonatate* (Tessalon Perle*) 100 Mg Capsule, 100 MG PO Q8H PRN for COUGH, #30 CAP Prov:LIAN ROJAS MD 10/25/18 Medications Current Medications Calcium Acetate (Phoslo) 1,334 mg WITH MEALS PO Last administered on 02/26/19 17:38; Admin Dose 1,334 MG; Start 02/21/19 at 12:00 Clopidogrel Bisulfate (plaVIX) 75 mg DAILY PO Last administered on 02/26/19 09:47; Admin Dose 75 MG; Start 02/22/19 at 09:00 Docusate Sodium (Colace) 100 mg DAILY PO Last administered on 02/26/19 09:47; Admin Dose 100 MG; Start 02/22/19 at 09:00 Folic Acid (Folic Acid) 1 mg DAILY PO Last administered on 02/26/19 09:47; Admin Dose 1 MG; Start 02/22/19 at 09:00 Hydralazine HCl (Apresoline) 75 mg TID PO Last administered on 02/26/19 20:39; Admin Dose 75 MG; Start 02/21/19 at 13:00 Linagliptin (Tradjenta) 5 mg DAILY PO Last administered on 02/26/19 09:47; Admin Dose 5 MG; Start 02/22/19 at 09:00 Metoprolol Succinate (Toprol Xl) 50 mg DAILY PO Last administered on 02/26/19 09:51; Admin Dose 50 MG; Start 02/22/19 at 09:00 Ondansetron HCl (Zofran Odt) 4 mg Q6H PRN ODT NAUSEA AND/OR VOMITING; Start 02/21/19 at 10:00 Diagnostic Test (Pha) (Accu-Chek) 1 ea AC MEALS AND BEDTIME XX Last administered on 02/28/19 10:42; Admin Dose 1 EA; Start 02/21/19 at 11:30 Diagnostic Test (Pha) (Accu-Chek) 1 ea 02 XX ; Start 02/22/19 at 02:00 Insulin Aspart (Novolog Insulin Pen) NOVOLOG *MILD* ALGORITHM WITH MEALS BEDTIME SC Last administered on 02/28/19 07:56; Admin Dose 1 UNIT; Start 02/21/19 at 21:00 Hydralazine HCl (Apresoline) 10 mg Q6H PRN IV SBP >165 Last administered on 02/28/19 00:47; Admin Dose 10 MG; Start 02/21/19 at 19:30 Pantoprazole (Protonix Tab) 40 mg DAILY@06 PO Last administered on 02/27/19 05:21; Admin Dose 40 MG; Start 02/22/19 at 14:30 Heparin Sodium (Porcine) (Heparin (5000 Units/1ml)) 5,000 unit BID SC Last administered on 02/27/19 20:37; Admin Dose 5,000 UNIT; Start 02/22/19 at 21:00 Epoetin Carlos-epbx (Retacrit (Esrd)) 4,000 unit TuThSa@1700 SC Last administered on 02/26/19 17:39; Admin Dose 4,000 UNIT; Start 02/23/19 at 17:00 Fluticasone Propionate (Flonase 0.05% Nasal) 1 spray DAILY NASAL Last administered on 02/25/19 08:51; Admin Dose 1 SPRAY; Start 02/23/19 at 16:30 Dextrose/Sodium Chloride 1,000 ml @ 20 mls/hr Q24H IV Last administered on 02/27/19 17:04; Admin Dose 20 MLS/HR; Start 02/27/19 at 16:30 Hydralazine HCl (Apresoline) 20 mg Q6H PRN IV ELEVATED SYSTOLIC BP Last administered on 02/28/19 10:39; Admin Dose 20 MG; Start 02/28/19 at 00:30 Vancomycin HCl (Vanco Iv Per Pharmacy) VANCOMYCIN PER PHARMACY PER PROTOCOL XX ; Start 02/28/19 at 11:00 Cefepime HCl 50 ml @ 100 mls/hr DAILY IVPB ; Start 02/28/19 at 11:00 Acyclovir 500 mg/ Sodium Chloride 100 ml @ 100 mls/hr ONCE ONCE IVPB ; Start 02/28/19 at 11:30; Stop 02/28/19 at 12:29 Vancomycin HCl 1.75 gm/Sodium Chloride 500 ml @ 125 mls/hr ONCE IVPB ; Start 02/28/19 at 12:30; Stop 02/28/19 at 23:59 Miscellaneous Information (*Rx Drug Level Order Reminder*) RANDOM VANCOMYCIN LEVEL 7... 0500 ONCE XX ; Start 03/02/19 at 05:00; Stop 03/02/19 at 05:01 Allergies: Coded Allergies: No Known Allergy (Unverified , 02/21/19) Past Surgical History Past Surgical Hx: other Social History Smoking Status: Never smoker Exam/Review of Systems Exam Vitals Vital Signs Date Temp Pulse Resp B/P (MAP) Pulse Ox O2 O2 Flow FiO2 Time Delivery Rate 02/28/19 98.3 07:26 02/28/19 77 18 144/47 98 Nasal 2.0 06:00 (79) Cannula 02/28/19 24 05:53 Intake and Output 02/27/19 02/27/19 02/28/19 1515:00 23:00 07:00 IntakeIntake Total 275 ml 100 ml 140 ml OutputOutput Total 1700 ml BalanceBalance -1425 ml 100 ml 140 ml Exam H EENT exam; supple neck, no JVD. No lymphadenopathy. Midline trachea. No thyromegaly. There is a vesicular rash involving the right periorbital area. Chest exam; diminished but clear breath sounds. S1-S2 audible, no murmurs. Pacemaker in left chest wall. Abdomen exam; soft, nondistended. Mildly protuberant. No organomegaly. Bowel sounds audible. Extremity exam; no peripheral edema or clubbing. [employer] exam; patient is noncommunicative and unresponsive. Results Result Diagram: 02/28/19 0400 02/28/19 0400 Results 24hrs Laboratory Tests Test 02/27/19 11:42 02/27/19 17:03 02/27/19 20:33 02/28/19 02:19 White Blood Count 7.6 Red Blood Count 2.94 L Hemoglobin 9.3 L Hematocrit 29.4 L Mean Corpuscular 100.0 Volume Mean Corpuscular 31.6 Hemoglobin Mean Corpuscular 31.6 L Hemoglobin Concent Red Cell 17.4 H Distribution Width Platelet Count 371 Mean Platelet Volume 9.7 Immature 0.700 H Granulocytes % Neutrophils % 73.7 Lymphocytes % 13.6 L Monocytes % 10.6 Eosinophils % 1.0 Basophils % 0.4 Nucleated Red Blood 2.0 H Cells % Immature 0.050 H Granulocytes # Neutrophils # 5.6 Lymphocytes # 1.0 Monocytes # 0.8 Eosinophils # 0.1 Basophils # 0.0 Nucleated Red Blood 0.2 H Cells # Prothrombin Time 13.8 Prothrombin Time 1.1 Ratio INR International 1.05 Normalized Ratio Activated 35.9 H Partial Thromboplast Time Sodium Level 137 Potassium Level 4.7 Chloride Level 98 Carbon Dioxide Level 26 Anion Gap 13 Blood Urea Nitrogen 40 H Creatinine 6.29 H Est Glomerular 7 L Filtrat Rate mL/min Glucose Level 138 Hemoglobin A1c 5.7 Calcium Level 9.7 Ammonia < 9 L Creatine Kinase 107 Creatine Kinase 0.7 Index Creatinine Kinase MB 0.74 (Mass) Troponin I 0.026 Triglycerides Level 145 Cholesterol Level 171 LDL Cholesterol, 100 Calculated HDL Cholesterol 42 Cholesterol/HDL 4.0 Ratio Bedside Glucose 119 126 142 Test 02/28/19 04:00 02/28/19 07:53 02/28/19 10:41 White Blood Count 7.9 Red Blood Count 2.85 L Hemoglobin 9.1 L Hematocrit 28.7 L Mean Corpuscular 100.7 Volume Mean Corpuscular 31.9 Hemoglobin Mean Corpuscular 31.7 L Hemoglobin Concent Red Cell 18.0 H Distribution Width Platelet Count 416 H Mean Platelet Volume 9.8 Immature 0.900 H Granulocytes % Neutrophils % 75.4 Lymphocytes % 9.3 L Monocytes % 13.2 H Eosinophils % 0.6 Basophils % 0.6 Nucleated Red Blood 1.8 H Cells % Immature 0.070 H Granulocytes # Neutrophils # 6.0 Lymphocytes # 0.7 L Monocytes # 1.1 H Eosinophils # 0.1 Basophils # 0.1 Nucleated Red Blood 0.1 H Cells # Sodium Level 137 Potassium Level 5.0 Chloride Level 97 Carbon Dioxide Level 26 Anion Gap 14 H Blood Urea Nitrogen 49 H Creatinine 8.41 #H Est Glomerular 5 L Filtrat Rate mL/min Glucose Level 153 Calcium Level 9.7 Phosphorus Level 5.4 H Magnesium Level 2.3 Bedside Glucose 141 132 Medications Medication Current Medications Calcium Acetate (Phoslo) 1,334 mg WITH MEALS PO Last administered on 02/26/19 17:38; Admin Dose 1,334 MG; Start 02/21/19 at 12:00 Clopidogrel Bisulfate (plaVIX) 75 mg DAILY PO Last administered on 02/26/19 09:47; Admin Dose 75 MG; Start 02/22/19 at 09:00 Docusate Sodium (Colace) 100 mg DAILY PO Last administered on 02/26/19 09:47; Admin Dose 100 MG; Start 02/22/19 at 09:00 Folic Acid (Folic Acid) 1 mg DAILY PO Last administered on 02/26/19 09:47; Admin Dose 1 MG; Start 02/22/19 at 09:00 Hydralazine HCl (Apresoline) 75 mg TID PO Last administered on 02/26/19 20:39; Admin Dose 75 MG; Start 02/21/19 at 13:00 Linagliptin (Tradjenta) 5 mg DAILY PO Last administered on 02/26/19 09:47; Admin Dose 5 MG; Start 02/22/19 at 09:00 Metoprolol Succinate (Toprol Xl) 50 mg DAILY PO Last administered on 02/26/19 09:51; Admin Dose 50 MG; Start 02/22/19 at 09:00 Ondansetron HCl (Zofran Odt) 4 mg Q6H PRN ODT NAUSEA AND/OR VOMITING; Start 02/21/19 at 10:00 Diagnostic Test (Pha) (Accu-Chek) 1 ea AC MEALS AND BEDTIME XX Last admini stered on 02/28/19 10:42; Admin Dose 1 EA; Start 02/21/19 at 11:30 Diagnostic Test (Pha) (Accu-Chek) 1 ea 02 XX ; Start 02/22/19 at 02:00 Insulin Aspart (Novolog Insulin Pen) NOVOLOG *MILD* ALGORITHM WITH MEALS BEDTIME SC Last administered on 02/28/19 07:56; Admin Dose 1 UNIT; Start 02/21/19 at 21:00 Hydralazine HCl (Apresoline) 10 mg Q6H PRN IV SBP >165 Last administered on 02/28/19 00:47; Admin Dose 10 MG; Start 02/21/19 at 19:30 Pantoprazole (Protonix Tab) 40 mg DAILY@06 PO Last administered on 02/27/19 05:21; Admin Dose 40 MG; Start 02/22/19 at 14:30 Heparin Sodium (Porcine) (Heparin (5000 Units/1ml)) 5,000 unit BID SC Last administered on 02/27/19at 20:37; Admin Dose 5,000 UNIT; Start 02/22/19 at 21:00 Epoetin Carlos-epbx (Retacrit (Esrd)) 4,000 unit TuThSa@1700 SC Last administered on 02/26/19at 17:39; Admin Dose 4,000 UNIT; Start 02/23/19 at 17:00 Fluticasone Propionate (Flonase 0.05% Nasal) 1 spray DAILY NASAL Last administered on 02/25/19 08:51; Admin Dose 1 SPRAY; Start 02/23/19 at 16:30 Dextrose/Sodium Chloride 1,000 ml @ 20 mls/hr Q24H IV Last administered on 02/27/19 17:04; Admin Dose 20 MLS/HR; Start 02/27/19 at 16:30 Hydralazine HCl (Apresoline) 20 mg Q6H PRN IV ELEVATED SYSTOLIC BP Last administered on 02/28/19at 10:39; Admin Dose 20 MG; Start 02/28/19 at 00:30 Vancomycin HCl (Vanco Iv Per Pharmacy) VANCOMYCIN PER PHARMACY PER PROTOCOL XX ; Start 02/28/19 at 11:00 Cefepime HCl 50 ml @ 100 mls/hr DAILY IVPB ; Start 02/28/19 at 11:00 Acyclovir 500 mg/ Sodium Chloride 100 ml @ 100 mls/hr ONCE ONCE IVPB ; Start 02/28/19 at 11:30; Stop 02/28/19 at 12:29 Vancomycin HCl 1.75 gm/Sodium Chloride 500 ml @ 125 mls/hr ONCE IVPB ; Start 02/28/19 at 12:30; Stop 02/28/19 at 23:59 Miscellaneous Information (*Rx Drug Level Order Reminder*) RANDOM VANCOMYCIN LEVEL 7... 0500 ONCE XX ; Start 03/02/19 at 05:00; Stop 03/02/19 at 05:01 JAJA THOMPSON Feb 28, 2019 11:31
[2019-02-28] MEDS ORDERED: VANCOMYCIN HCL 1.75 GM in SOD CHLORIDE 0.9% 500 ML IVPB SCH (12:30)
[2019-02-28] MEDS: CEFEPIME 1GM/50 ML (PMX) 50 ML IVPB SCH (14:21)
--- NOTE | 2019-02-28 16:14 | PN ---
DATE: 02/28/2019 SUBJECTIVE: The patient was transferred to ICU secondary to worsening encephalopathy. She is noncommunicative, in no distress. No fevers overnight. She is scheduled for lumbar puncture today. LAB DATA: WBC today 7.9, H and H 9.1 and 28.7, platelets 460, neutrophils of 75.4. MICROBIOLOGY: Blood culture sent yesterday negative. She had a brain CT yesterday that revealed no acute intracranial abnormalities. Head CTA revealed no major intracranial arterial occlusion or significant stenosis. No acute intracranial hemorrhage. ANTIMICROBIALS: The patient was given a dose of acyclovir. I started her on vancomycin and Cefepime. PHYSICAL EXAMINATION: GENERAL: This is a well-developed, chronically ill-appearing, elderly woman who is in no distress. HEENT: Head atraumatic, normocephalic. Sclerae anicteric. Buccal mucosa dry. NECK: Supple. CHEST: Rise symmetrical. Breath sounds diminished to bases. HEART: S1, S2. ABDOMEN: Soft, bowel sounds present. EXTREMITIES: Without cyanosis. ASSESSMENT: 1. Acute encephalopathy, possibly secondary to Valtrex and other medications, r/o line sepsis. 2. Questionable meningitis given history of recent herpes, of note the patient was treated with Valtrex since 02/06/2019, possibility of bacterial meningitis of concern, as well as per neurology note. 3. End-stage renal disease, hemodialysis dependent. 4. Morbid obesity. 5. Diabetes and hypertension. 6. Coronary artery disease with history of permanent pacemaker. PLAN: The patient is hemodynamically stable, lumbar puncture that is scheduled for today. Neurology is on case. She also was evaluated by pulmonology and at this point, she does not require intubation. She is able to protect her airway. We will await for final workup. Keep her on empiric antibiotic coverage for now. Discussed with Dr. Xavier Dictated By: ADEOLA BRYAN TINSMITH APPRENTICE for LIDA GARBER MD NI/NTS Conf#: [id number] DID#: [id number] CC: JEFF RAMOS MD;*EndCC* MTDD
[2019-02-28] MEDS: DEXTROSE 5%-0.45% NACL 1,000 ML IV SCH (16:30)
[2019-02-28] MEDS: EPOETIN ALFA-EPBX (ESRD) 4,000 UNIT/ML VIAL SC SCH (19:56)
[2019-02-28] MEDS: ACYCLOVIR IVPB SCH (20:01)
[2019-02-28] MEDS: DEXTROSE 5% IVPB SCH (20:01)
[2019-03-01] VITALS (39 sets, daily range): BP systolic 106–182; BP diastolic 44–79; PULSE 60–108; RESP 11–27
[2019-03-01] MEDS: ACCU-CHEK XX SCH ×5 (02:00→21:00)
[2019-03-01] MEDS: PANTOPRAZOLE (EC) 40 MG TAB PO SCH (05:46)
[2019-03-01] MEDS: CALCIUM ACETATE 667 MG CAP PO SCH ×3 (07:35→17:35)
[2019-03-01] MEDS: CEFEPIME 1GM/50 ML (PMX) 50 ML IVPB SCH (08:55)
[2019-03-01] MEDS: FOLIC ACID 1 MG TAB PO SCH (09:00)
[2019-03-01] MEDS: CLOPIDOGREL 75 MG TAB PO SCH (09:00)
[2019-03-01] MEDS: LINAGLIPTIN 5 MG TABLET PO SCH (09:00)
[2019-03-01] MEDS: DOCUSATE SODIUM 100 MG CAP PO SCH (09:00)
[2019-03-01] MEDS: METOPROLOL (XL) 50 MG TAB PO SCH (09:00)
[2019-03-01] MEDS: INSULIN ASPART [NOVOLOG] 3 ML PEN SC SCH ×4 (09:07→21:00)
--- NOTE | 2019-03-01 09:11 | PN ---
Date/Time of Note Date/Time of Note DATE: 03/01/19 TIME: 09:07 Assessment/Plan VTE Prophylaxis Risk score (from Ns)>0 risk: 7 SCD applied (from [facility] [place] No SCD contraindicated: low risk/ambulating Pharmacological prophylaxis: NA/contraindicated Pharm contraindication: low risk/ambulating Lines/Catheters IV Catheter Type (from [facility] Mid Line Urinary Cath still in place: No Assessment/Plan Hospital Course # AMS likely secondary to encephalitis due to meds vs encephalitis ? viral likely herpes LP +15WBC and 100mono partially treated EEG slowing. now has gram pos bacterimia #Headaches. resolved. 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 The patient has mild leukocytosis, resolved. Currently, the patient does not have any evidence of any meningitis. Little lethargic #. Basilar opacity with pneumonia. Chest x-ray ordered # End stage renal disease, on hemodialysis. # Left lower extremity edema, anasarca. # Hypertension, normotensive now. 7. Diabetes mellitus type II, controlled blood sugar is normal. 8. Hyperlipidemia. 9. History of ovarian tumor. 10. Anemia of CD 11. Overweight 12. Hepatitis B 13. Mild scattered paranasal sinus disease with small mucoid secretion in the right sphenoid sinus, correlate for acute sinusitis. CT scan seen Assessment/Plan - NG tube and nutrition today -slight improvement today - HD tmw next -ct angio negative - iv vanco/cefepime , acyclovir after HD - CW plavix - cw trradenta, - d5.1/2 NS while npo - aspiration precautions - Continue with Epogen - Renally dose al meds spoke to karla at bedside Result Diagram: 03/01/19 0334 03/01/19 0334 Results 24hrs Laboratory Tests Test 02/28/19 10:41 02/28/19 13:07 02/28/19 19:37 02/28/19 21:08 Bedside Glucose 132 117 120 CSF Tubes Submitted 4 CSF Volume 10.0 CSF Appearance CLEAR CSF Color COLORLESS CSF WBC 15 *H CSF RBC 0 CSF Cell Count Tube TUBE#1 # CSF Mononuclear 100.0 Cells % (Auto) CSF Polynuclear WBCs 0.0 (%) CSF Glucose 95 H CSF Total Protein 32 Test 03/01/19 03:34 White Blood Count 7.1 Red Blood Count 2.65 L Hemoglobin 8.6 L Hematocrit 26.8 L Mean Corpuscular 101.1 H Volume Mean Corpuscular 32.5 Hemoglobin Mean Corpuscular 32.1 Hemoglobin Concent Red Cell 17.5 H Distribution Width Platelet Count 372 Mean Platelet Volume 9.9 Immature 1.600 H Granulocytes % Neutrophils % 72.7 Lymphocytes % 11.4 L Monocytes % 13.8 H Eosinophils % 0.1 Basophils % 0.4 Nucleated Red Blood 6.3 H Cells % Immature 0.110 H Granulocytes # Neutrophils # 5.2 Lymphocytes # 0.8 Monocytes # 1.0 H Eosinophils # 0.0 Basophils # 0.0 Nucleated Red Blood 0.5 H Cells # Sodium Level 141 Potassium Level 4.6 Chloride Level 101 Carbon Dioxide Level 28 Anion Gap 12 Blood Urea Nitrogen 35 #H Creatinine 5.59 #H Est Glomerular 8 L Filtrat Rate mL/min Glucose Level 125 Calcium Level 9.4 Phosphorus Level 5.3 H Magnesium Level 2.2 Total Bilirubin 0.4 Direct Bilirubin 0.00 Indirect Bilirubin 0.4 Aspartate Amino 73 H Transf (AST/SGOT) Alanine 24 Aminotransferase (AL T/SGPT) Alkaline Phosphatase 54 Total Protein 8.1 Albumin 3.7 Globulin 4.40 H Albumin/Globulin 0.84 Ratio Subjective 24 Hr Interval Summary Free Text/Dictation PT opened her eyes when called for her name Exam/Review of Systems Exam Vitals Vital Signs Date Temp Pulse Resp B/P (MAP) Pulse Ox O2 O2 Flow FiO2 Time Delivery Rate 03/01/19 101 24 150/64 99 08:30 (92) 03/01/19 98.9 Nasal 2.0 07:30 Cannula 02/28/19 24 05:53 Intake and Output 02/28/19 02/28/19 03/01/19 1515:00 23:00 07:00 IntakeIntake Total 80 ml 70 ml 240 ml OutputOutput Total 900 ml BalanceBalance 80 ml -830 ml 240 ml Exam Exam HEENT crusted lesions on rt side of face, grimaces on sternal rub, dont follow commands,today opened her eyes whne name called Pupils equal and reactive to light moves all extremities no neck rigity iveth Neck: supple, no thyromegaly, no carotid bruits Lungs: clear bilaterally, decreased. CVS: regular rate and rhythm, no murmurs Abdomen: soft, bowel sounds present, no hepatosplenomegally, no masses, no rebound or guarding. Obese pacemaker rt fistula cn nerve exam limited reflexes 2 + Results Results 24hrs Laboratory Tests Test 02/28/19 10:41 02/28/19 13:07 02/28/19 19:37 02/28/19 21:08 Bedside Glucose 132 117 120 CSF Tubes Submitted 4 CSF Volume 10.0 CSF Appearance CLEAR CSF Color COLORLESS CSF WBC 15 *H CSF RBC 0 CSF Cell Count Tube TUBE#1 # CSF Mononuclear 100.0 Cells % (Auto) CSF Polynuclear WBCs 0.0 (%) CSF Glucose 95 H CSF Total Protein 32 Test 03/01/19 03:34 White Blood Count 7.1 Red Blood Count 2.65 L Hemoglobin 8.6 L Hematocrit 26.8 L Mean Corpuscular 101.1 H Volume Mean Corpuscular 32.5 Hemoglobin Mean Corpuscular 32.1 Hemoglobin Concent Red Cell 17.5 H Distribution Width Platelet Count 372 Mean Platelet Volume 9.9 Immature 1.600 H Granulocytes % Neutrophils % 72.7 Lymphocytes % 11.4 L Monocytes % 13.8 H Eosinophils % 0.1 Basophils % 0.4 Nucleated Red Blood 6.3 H Cells % Immature 0.110 H Granulocytes # Neutrophils # 5.2 Lymphocytes # 0.8 Monocytes # 1.0 H Eosinophils # 0.0 Basophils # 0.0 Nucleated Red Blood 0.5 H Cells # Sodium Level 141 Potassium Level 4.6 Chloride Level 101 Carbon Dioxide Level 28 Anion Gap 12 Blood Urea Nitrogen 35 #H Creatinine 5.59 #H Est Glomerular 8 L Filtrat Rate mL/min Glucose Level 125 Calcium Level 9.4 Phosphorus Level 5.3 H Magnesium Level 2.2 Total Bilirubin 0.4 Direct Bilirubin 0.00 Indirect Bilirubin 0.4 Aspartate Amino 73 H Transf (AST/SGOT) Alanine 24 Aminotransferase (AL T/SGPT) Alkaline Phosphatase 54 Total Protein 8.1 Albumin 3.7 Globulin 4.40 H Albumin/Globulin 0.84 Ratio Medications Medication Current Medications Calcium Acetate (Phoslo) 1,334 mg WITH MEALS PO Last administered on 02/26/19at 17:38; Admin Dose 1,334 MG; Start 02/21/19 at 12:00 Clopidogrel Bisulfate (plaVIX) 75 mg DAILY PO Last administered on 02/26/19at 09:47; Admin Dose 75 MG; Start 02/22/19 at 09:00 Docusate Sodium (Colace) 100 mg DAILY PO Last administered on 02/26/19 09:47; Admin Dose 100 MG; Start 02/22/19 at 09:00 Folic Acid (Folic Acid) 1 mg DAILY PO Last administered on 02/26/19 09:47; Admin Dose 1 MG; Start 02/22/19 at 09:00 Hydralazine HCl (Apresoline) 75 mg TID PO Last administered on 02/26/19 20:39; Admin Dose 75 MG; Start 02/21/19 at 13:00 Linagliptin (Tradjenta) 5 mg DAILY PO Last administered on 02/26/19 09:47; Admin Dose 5 MG; Start 02/22/19 at 09:00 Metoprolol Succinate (Toprol Xl) 50 mg DAILY PO Last administered on 02/26/19 09:51; Admin Dose 50 MG; Start 02/22/19 at 09:00 Ondansetron HCl (Zofran Odt) 4 mg Q6H PRN ODT NAUSEA AND/OR VOMITING; Start 02/21/19 at 10:00 Diagnostic Test (Pha) (Accu-Chek) 1 ea AC MEALS AND BEDTIME XX Last administered on 02/28/19 19:39; Admin Dose 1 EA; Start 02/21/19 at 11:30 Diagnostic Test (Pha) (Accu-Chek) 1 ea 02 XX ; Start 02/22/19 at 02:00 Insulin Aspart (Novolog Insulin Pen) NOVOLOG *MILD* ALGORITHM WITH MEALS BEDTIME SC Last administered on 02/28/19 07:56; Admin Dose 1 UNIT; Start 02/21 at 21:00 Hydralazine HCl (Apresoline) 10 mg Q6H PRN IV SBP >165 Last administered on 02/28/19 00:47; Admin Dose 10 MG; Start 02/21/19 at 19:30 Pantoprazole (Protonix Tab) 40 mg DAILY@06 PO Last administered on 02/27/19 05:21; Admin Dose 40 MG; Start 02/22/19 at 14:30 Heparin Sodium (Porcine) (Heparin (5000 Units/1ml)) 5,000 unit BID SC Last administered on 02/28/19 21:23; Admin Dose 5,000 UNIT; Start 02/22/19 at 21:00 Epoetin Carlos-epbx (Retacrit (Esrd)) 4,000 unit TuThSa@1700 SC Last administered on 02/28/19at 19:56; Admin Dose 4,000 UNIT; Start 02/23/19 at 17:00 Fluticasone Propionate (Flonase 0.05% Nasal) 1 spray DAILY NASAL Last administered on 02/25/19at 08:51; Admin Dose 1 SPRAY; Start 02/23/19 at 16:30 Dextrose/Sodium Chloride 1,000 ml @ 20 mls/hr Q24H IV Last administered on 02/27/19at 17:04; Admin Dose 20 MLS/HR; Start 02/27/19 at 16:30 Hydralazine HCl (Apresoline) 20 mg Q6H PRN IV ELEVATED SYSTOLIC BP Last administered on 02/28/19at 10:39; Admin Dose 20 MG; Start 02/28/19 at 00:30 Vancomycin HCl (Vanco Iv Per Pharmacy) VANCOMYCIN PER PHARMACY PER PROTOCOL XX ; Start 02/28/19 at 11:00 Cefepime HCl 50 ml @ 100 mls/hr DAILY IVPB Last administered on 03/01/19at 0 8:55; Admin Dose 100 MLS/HR; Start 02/28/19 at 11:00 Miscellaneous Information (*Rx Drug Level Order Reminder*) RANDOM VANCOMYCIN LEVEL 7... 0500 ONCE XX ; Start 03/02/19 at 05:00; Stop 03/02/19 at 05:01 Acyclovir 370 mg/ Dextrose 100 ml @ 100 mls/hr Q24H IVPB ; Start 02/28/19 at 18:00 ELIANA NEELY MD Mar 01, 2019 09:11
--- NOTE | 2019-03-01 09:15 | CONS ---
Assessment/Plan Assessment/Plan Assessment/Plan (Daily) Assessment and recommendations; 1. Patient with a history of right periorbital herpes zoster infection admitted for altered mental status to ICU. Etiology is unclear. Possibly drug related. Brain imaging as well as CSF studies are essentially unremarkable. 2. History of chronic renal failure, dialysis dependent. 3. History of pacemaker placement in the past. 4. Chronic anemia. 5. History of hypertension. Continue current supportive care. Further recommendations per accounting coordinator and neurologist. Patient can be started on nasogastric tube feeding. Consultation Date/Type/Reason Admit Date/Time Feb 21, 2019 at 03:02 Initial Consult Date 02/28/19 Type of Consult Pulmonary/critical care Pulmonary critical care consult requested for evaluation of altered mental status. Consultation is specifically to evaluate for possible intubation. Patient is a 68-year-old lady who was admitted to the hospital with complaints of not feeling well. Patient has been diagnosed with right periorbital herpes zoster infection. Patient has been on acyclovir. Over the last 12 hours the patient mental status has worsened to the point where the patient always essentially unresponsive. Patient has been transferred to ICU for closer observation. By the time I saw the patient, patient is noncommunicative and unresponsive but did not appear to be in any distress. Past medical history; 1. Chronic renal failure, dialysis dependent. 2. History of pacemaker placement. 3. History of CHF, hypertension and episodes of pneumonia. 4. History of ovarian tumor. 5. History of diabetes. 6. Chronic anemia. Medications; reviewed. Allergies; none. Social history; patient is a non-smoker. Family history; noncontributory. Patient does have a supportive family. Occupational history; patient is a housewife. Review of system; unable to be obtained. General exam; elderly woman, noncommunicative and unresponsive. Currently in no distress. Requesting Provider: ELIANA NEELY MD Date/Time of Note DATE: 03/01/19 TIME: 09:13 24 HR Interval Summary Free Text/Dictation Patient's condition remains critical. Still remains essentially unresponsive. General exam; elderly woman, currently no distress. Occasionally moans and groans. Exam/Review of Systems Exam Vitals Vital Signs Date Temp Pulse Resp B/P (MAP) Pulse Ox O2 O2 Flow FiO2 Time Delivery Rate 03/01/19 101 24 150/64 99 08:30 (92) 03/01/19 98.9 Nasal 2.0 07:30 Cannula 02/28/19 24 05:53 Intake and Output 02/28/19 02/28/19 03/01/19 1515:00 23:00 07:00 IntakeIntake Total 80 ml 70 ml 240 ml OutputOutput Total 900 ml BalanceBalance 80 ml -830 ml 240 ml Exam HEENT exam; supple neck, no JVD. No lymphadenopathy. Midline trachea. No thyromegaly. Right periorbital vesicular rash is improving. No neck masses. Patient has fair dentition. Chest exam; clear to auscultation. S1-S2 audible, no murmurs. Regular rhythm. Abdomen exam; soft, no organomegaly. Protuberant. Bowel sounds audible. Extremity exam; no peripheral edema. CHEMIST PROTEINS exam; patient remains essentially unresponsive. Results Result Diagram: 03/01/19 0334 03/01/19 0334 Results 24hrs Laboratory Tests Test 02/28/19 10:41 02/28/19 13:07 02/28/19 19:37 02/28/19 21:08 Bedside Glucose 132 117 120 CSF Tubes Submitted 4 CSF Volume 10.0 CSF Appearance CLEAR CSF Color COLORLESS CSF WBC 15 *H CSF RBC 0 CSF Cell Count Tube TUBE#1 # CSF Mononuclear 100.0 Cells % (Auto) CSF Polynuclear WBCs 0.0 (%) CSF Glucose 95 H CSF Total Protein 32 Test 03/01/19 03:34 White Blood Count 7.1 Red Blood Count 2.65 L Hemoglobin 8.6 L Hematocrit 26.8 L Mean Corpuscular 101.1 H Volume Mean Corpuscular 32.5 Hemoglobin Mean Corpuscular 32.1 Hemoglobin Concent Red Cell 17.5 H Distribution Width Platelet Count 372 Mean Platelet Volume 9.9 Immature 1.600 H Granulocytes % Neutrophils % 72.7 Lymphocytes % 11.4 L Monocytes % 13.8 H Eosinophils % 0.1 Basophils % 0.4 Nucleated Red Blood 6.3 H Cells % Immature 0.110 H Granulocytes # Neutrophils # 5.2 Lymphocytes # 0.8 Monocytes # 1.0 H Eosinophils # 0.0 Basophils # 0.0 Nucleated Red Blood 0.5 H Cells # Sodium Level 141 Potassium Level 4.6 Chloride Level 101 Carbon Dioxide Level 28 Anion Gap 12 Blood Urea Nitrogen 35 #H Creatinine 5.59 #H Est Glomerular 8 L Filtrat Rate mL/min Glucose Level 125 Calcium Level 9.4 Phosphorus Level 5.3 H Magnesium Level 2.2 Total Bilirubin 0.4 Direct Bilirubin 0.00 Indirect Bilirubin 0.4 Aspartate Amino 73 H Transf (AST/SGOT) Alanine 24 Aminotransferase (AL T/SGPT) Alkaline Phosphatase 54 Total Protein 8.1 Albumin 3.7 Globulin 4.40 H Albumin/Globulin 0.84 Ratio Medications Medication Current Medications Calcium Acetate (Phoslo) 1,334 mg WITH MEALS PO Last administered on 02/26/19 17:38; Admin Dose 1,334 MG; Start 02/21/19 at 12:00 Clopidogrel Bisulfate (plaVIX) 75 mg DAILY PO Last administered on 02/26/19 09:47; Admin Dose 75 MG; Start 02/22/19 at 09:00 Docusate Sodium (Colace) 100 mg DAILY PO Last administered on 02/26/19 09:47; Admin Dose 100 MG; Start 02/22/19 at 09:00 Folic Acid (Folic Acid) 1 mg DAILY PO Last administered on 02/26/19 09:47; Admin Dose 1 MG; Start 02/22/19 at 09:00 Hydralazine HCl (Apresoline) 75 mg TID PO Last administered on 02/26/19 20:39; Admin Dose 75 MG; Start 02/21/19 at 13:00 Linagliptin (Tradjenta) 5 mg DAILY PO Last administered on 02/26/19 09:47; Admin Dose 5 MG; Start 02/22/19 at 09:00 Metoprolol Succinate (Toprol Xl) 50 mg DAILY PO Last administered on 02/26/19 09:51; Admin Dose 50 MG; Start 02/22/19 at 09:00 Ondansetron HCl (Zofran Odt) 4 mg Q6H PRN ODT NAUSEA AND/OR VOMITING; Start 02/21/19 at 10:00 Diagnostic Test (Pha) (Accu-Chek) 1 ea AC MEALS AND BEDTIME XX Last administered on 03/01/19 09:07; Admin Dose 1 EA; Start 02/21/19 at 11:30 Diagnostic Test (Pha) (Accu-Chek) 1 ea 02 XX ; Start 02/22/19 at 02:00 Insulin Aspart (Novolog Insulin Pen) NOVOLOG *MILD* ALGORITHM WITH MEALS BEDTIME SC Last administered on 02/28/19 07:56; Admin Dose 1 UNIT; Start 02/21/19 at 21:00 Hydralazine HCl (Apresoline) 10 mg Q6H PRN IV SBP >165 Last administered on 02/28/19 00:47; Admin Dose 10 MG; Start 02/21/19 at 19:30 Pantoprazole (Protonix Tab) 40 mg DAILY@06 PO Last administered on 02/27/19 05:21; Admin Dose 40 MG; Start 02/22/19 at 14:30 Heparin Sodium (Porcine) (Heparin (5000 Units/1ml)) 5,000 unit BID SC Last administered on 02/28/19 21:23; Admin Dose 5,000 UNIT; Start 02/22/19 at 21:00 Epoetin Carlos-epbx (Retacrit (Esrd)) 4,000 unit TuThSa@1700 SC Last administered on 02/28/19 19:56; Admin Dose 4,000 UNIT; Start 02/23/19 at 17:00 Fluticasone Propionate (Flonase 0.05% Nasal) 1 spray DAILY NASAL Last a dministered on 02/25/19 08:51; Admin Dose 1 SPRAY; Start 02/23/19 at 16:30 Dextrose/Sodium Chloride 1,000 ml @ 20 mls/hr Q24H IV Last administered on 02/27/19 17:04; Admin Dose 20 MLS/HR; Start 02/27/19 at 16:30 Hydralazine HCl (Apresoline) 20 mg Q6H PRN IV ELEVATED SYSTOLIC BP Last administered on 02/28/19 10:39; Admin Dose 20 MG; Start 02/28/19 at 00:30 Vancomycin HCl (Vanco Iv Per Pharmacy) VANCOMYCIN PER PHARMACY PER PROTOCOL XX ; Start 02/28/19 at 11:00 Cefepime HCl 50 ml @ 100 mls/hr DAILY IVPB Last administered on 03/01/19 08:55; Admin Dose 100 MLS/HR; Start 02/28/19 at 11:00 Miscellaneous Information (*Rx Drug Level Order Reminder*) RANDOM VANCOMYCIN LEVEL 7... 0500 ONCE XX ; Start 03/02/19 at 05:00; Stop 03/02/19 at 05:01 Acyclovir 370 mg/ Dextrose 100 ml @ 100 mls/hr Q24H IVPB ; Start 02/28/19 at 18:00 JAJA THOMPSON Mar 01, 2019 09:15
[2019-03-01] MEDS: HEPARIN 5,000 UNIT/1 ML VIAL SC SCH ×2 (10:10→21:01)
[2019-03-01] MEDS: FLUTICASONE 0.05% 16 GM NAS SPRAY NASAL SCH (15:28)
[2019-03-01] MEDS: DEXTROSE 5%-0.45% NACL 1,000 ML IV SCH (16:30)
[2019-03-01] MEDS: ACYCLOVIR IVPB SCH (18:18)
[2019-03-01] MEDS: DEXTROSE 5% IVPB SCH (18:18)
--- NOTE | 2019-03-01 19:11 | PN ---
DATE: 03/01/2019 SUBJECTIVE: The patient remains lethargic; however, per report she is a little bit more responsive. No fevers overnight. INDWELLINGS: She has AV fistula and NG tube. LABORATORY: WBC today 7.1 with platelets 372, neutrophils 72.7. DIAGNOSTICS: Chest x-ray this morning revealed left lower lobe lung opacity. ANTIMICROBIALS: The patient is on: 1. Acyclovir 2. Vancomycin. 3. Cefepime. PHYSICAL EXAMINATION: GENERAL: This is a chronically ill-appearing, elderly woman who is lethargic, in no distress. HEENT: Head atraumatic, normocephalic. NECK: Supple. CHEST: Rise symmetrical. Breath sounds diminished to bases. HEART: S1, S2. ABDOMEN: Soft, bowel sounds present. EXTREMITIES: Without cyanosis. ASSESSMENT: 1. Acute encephalopathy 2. Gram-positive cocci bacteremia r/o contaminant. 3. Aseptic meningitis. 4. History of shingles, recent status post Valtrex, started on 02/06/2019 5. End-stage renal disease, hemodialysis dependent. 6. Hypertension. 7. Diabetes. 8. Anemia. PLAN: The patient is hemodynamically stable. CSF culture preliminary negative, pending final workup. She is being followed by Dr. Xavier in neurology consultation. Dictated By: ADEOLA BRYAN [employer] for LIDA GARBER MD NI/NTS Conf#: [id number] DID#: [id number] CC: JEFF RAMOS MD;*EndCC* MTDD
--- NOTE | 2019-03-01 19:32 | CONS ---
Consult Date/Type/Reason Admit Date/Time Feb 21, 2019 at 03:02 Initial Consult Date 02/25/19 Type of Consultation: cv Requesting Provider: ELIANA NEELY MD Date/Time of Note DATE: 03/01/19 TIME: 19:31 Subjective Interventional cardiology follow-up progress note Subjective: Case discussed with the staff and Telemetry was reviewed. Patient has remained sinus rhythm with ventricular paced. with occasional PVCs No chest pain no palpitation. Patient has remained lethargic Patient is still being monitored in ICU Objective: General: no acute distress HEENT: NC/AT. pupils are equal. round. NECK: NO JVD. no stridor. CV: RRR. systolic murmur; no gallop or rubs. PULM: no wheezing or rhonchi. GI: SOFT, NT, ND, no rebound or guarding Extremity: trace B/L LE edema. no clubbing. neuro: Lethargic. Moves to painful stimuli Psych: calm and pleasant rectal: deferred Derm: Right upper forehead with crusted lesions EKG showed ventricular paced rhythm Head CT done February 27, 2019 shows: 1. Mild generalized cerebral and cerebellar volume loss and nonspecific chronic microvascular ischemic disease. 2. No evidence of intracranial masses hemorrhages or midline shift. 3. Right periorbital soft tissue swelling. No calvarial fractures. Objective Vitals Vital Signs Date Temp Pulse Resp B/P (MAP) Pulse Ox O2 O2 Flow FiO2 Time Delivery Rate 03/01/19 105 13 169/72 92 Room Air 18:00 (104) 03/01/19 98.6 16:30 03/01/19 1.0 16:00 02/28/19 24 05:53 Intake and Output 02/28/19 02/28/19 03/01/19 1515:00 23:00 07:00 IntakeIntake Total 80 ml 70 ml 240 ml OutputOutput Total 900 ml BalanceBalance 80 ml -830 ml 240 ml Results/Medications Result Diagram: 03/01/19 0334 03/01/19 0953 Results 24 hrs Laboratory Tests Test 02/28/19 19:37 02/28/19 21:08 03/01/19 03:34 03/01/19 09:06 Bedside Glucose 117 120 114 White Blood Count 7.1 Red Blood Count 2.65 L Hemoglobin 8.6 L Hematocrit 26.8 L Mean Corpuscular 101.1 H Volume Mean Corpuscular 32.5 Hemoglobin Mean Corpuscular 32.1 Hemoglobin Concent Red Cell 17.5 H Distribution Width Platelet Count 372 Mean Platelet Volume 9.9 Immature 1.600 H Granulocytes % Neutrophils % 72.7 Lymphocytes % 11.4 L Monocytes % 13.8 H Eosinophils % 0.1 Basophils % 0.4 Nucleated Red Blood 6.3 H Cells % Immature 0.110 H Granulocytes # Neutrophils # 5.2 Lymphocytes # 0.8 Monocytes # 1.0 H Eosinophils # 0.0 Basophils # 0.0 Nucleated Red Blood 0.5 H Cells # Sodium Level 141 Potassium Level 4.6 Chloride Level 101 Carbon Dioxide Level 28 Anion Gap 12 Blood Urea Nitrogen 35 #H Creatinine 5.59 #H Est Glomerular 8 L Filtrat Rate mL/min Glucose Level 125 Calcium Level 9.4 Phosphorus Level 5.3 H Magnesium Level 2.2 Total Bilirubin 0.4 Direct Bilirubin 0.00 Indirect Bilirubin 0.4 Aspartate Amino 73 H Transf (AST/SGOT) Alanine 24 Aminotransferase (AL T/SGPT) Alkaline Phosphatase 54 Total Protein 8.1 Albumin 3.7 Globulin 4.40 H Albumin/Globulin 0.84 Ratio Test 03/01/19 09:53 03/01/19 11:52 03/01/19 17:32 Sodium Level 141 Potassium Level 4.4 Chloride Level 101 Carbon Dioxide Level 28 Anion Gap 12 Blood Urea Nitrogen 39 H Creatinine 6.15 H Est Glomerular 7 L Filtrat Rate mL/min Glucose Level 118 Calcium Level 9.3 Bedside Glucose 103 123 Home Meds Active Scripts Hydrocodone/Acetaminophen ([place] 5-325 Tablet) 1 Each Tablet, 1 TAB PO TID PRN for PAIN, #12 TAB Prov:CHIQUITA JAVED MD 02/04/19 Ondansetron (Ondansetron Odt) 4 Mg Tab.rapdis, 4 MG PO Q6H PRN for NAUSEA AND/OR VOMITING, #10 TAB Prov:MK DUGGAN MD 01/28/19 Loperamide Hcl* (Imodium*) 2 Mg Capsule, 2 MG PO .AFTER EA LOOSE BM PRN for DIARRHEA, #20 TAB Prov:MK DUGGAN MD 01/28/19 Ondansetron (Ondansetron Odt) 4 Mg Tab.rapdis, 4 MG PO Q6H PRN for NAUSEA AND/OR VOMITING, #10 TAB Prov:TON ALMEIDA PA-C 01/16/19 Reported Medications Multivit/Ca Carb/B Cmplx/Fa* (Shanti-Horacio*) 1 Tab Tab, 1 TAB PO DAILY for 30 Days, #30 02/21/19 Clopidogrel Bisulfate (Clopidogrel) 75 Mg Tablet, 75 MG PO DAILY for 60 Days, #60 TAB 02/21/19 Gabapentin* (Gabapentin*) 100 Mg Capsule, 100 MG PO BID for 30 Days, #60 02/21/19 Diphenhydramine Hcl (BANOPHEN) 50 Mg Capsule, 50 MG PO DAILY PRN for ALLERGIC REACTION 02/21/19 valAcyclovir Hcl* (valACYclovir Hcl*) 500 Mg Tablet, 1000 MG PO TID, TAB 02/21/19 Hydralazine Hcl* (Hydralazine Hcl*) 25 Mg Tab, 75 MG PO TID, #90 TAB 10/12/18 Linagliptin (TRADJENTA) 5 Mg Tablet, 5 MG PO DAILY, TAB 10/12/18 Metoprolol Succinate* (Toprol XL*) 50 Mg Tab.er.24h, 50 MG PO DAILY, #30 TAB 10/12/18 Calcium Acetate* (Calcium Acetate*) 667 Mg Capsule, 1334 MG PO WITH MEALS, #60 CAP 10/12/18 Folic Acid* (Folic Acid*) 1 Mg Tablet, 1 MG PO DAILY, TAB 10/12/18 Docusate Sodium* (Colace*) 100 Mg Capsule, 100 MG PO DAILY, #30 CAP 10/12/18 Pantoprazole* (Protonix*) 40 Mg Tablet.dr, 40 MG PO DAILY, TAB 10/04/18 Cholecalciferol* (Vitamin D*) 400 Unit Tablet, 400 UNIT PO BID, TAB 10/04/18 Medications Current Medications Calcium Acetate (Phoslo) 1,334 mg WITH MEALS PO Last administered on 02/26/19at 17:38; Admin Dose 1,334 MG; Start 02/21/19 at 12:00 Clopidogrel Bisulfate (plaVIX) 75 mg DAILY PO Last administered on 02/26/19at 09:47; Admin Dose 75 MG; Start 02/22/19 at 09:00 Docusate Sodium (Colace) 100 mg DAILY PO Last administered on 02/26/19at 09:47; Admin Dose 100 MG; Start 02/22/19 at 09:00 Folic Acid (Folic Acid) 1 mg DAILY PO Last administered on 02/26/19 09:47; Admin Dose 1 MG; Start 02/22/19 at 09:00 Hydralazine HCl (Apresoline) 75 mg TID PO Last administered on 02/26/19 20:39; Admin Dose 75 MG; Start 02/21/19 at 13:00 Linagliptin (Tradjenta) 5 mg DAILY PO Last administered on 02/26/19 09:47; Admin Dose 5 MG; Start 02/22/19 at 09:00 Metoprolol Succinate (Toprol Xl) 50 mg DAILY PO Last administered on 02/26/19 09:51; Admin Dose 50 MG; Start 02/22/19 at 09:00 Ondansetron HCl (Zofran Odt) 4 mg Q6H PRN ODT NAUSEA AND/OR VOMITING; Start 02/21/19 at 10:00 Diagnostic Test (Pha) (Accu-Chek) 1 ea AC MEALS AND BEDTIME XX Last administered on 03/01/19 17:33; Admin Dose 1 EA; Start 02/21/19 at 11:30 Diagnostic Test (Pha) (Accu-Chek) 1 ea 02 XX ; Start 02/22/19 at 02:00 Insulin Aspart (Novolog Insulin Pen) NOVOLOG *MILD* ALGORITHM WITH MEALS BEDTIME SC Last administered on 02/28/19 07:56; Admin Dose 1 UNIT; Start 02/04 03/25 at 21:00 Hydralazine HCl (Apresoline) 10 mg Q6H PRN IV SBP >165 Last administered on 02/28/19 00:47; Admin Dose 10 MG; Start 02/21/19 at 19:30 Pantoprazole (Protonix Tab) 40 mg DAILY@06 PO Last administered on 02/27/19 05:21; Admin Dose 40 MG; Start 02/22/19 at 14:30 Heparin Sodium (Porcine) (Heparin (5000 Units/1ml)) 5,000 unit BID SC Last administered on 03/01/19 10:10; Admin Dose 5,000 UNIT; Start 02/22/19 at 21:00 Epoetin Carlos-epbx (Retacrit (Esrd)) 4,000 unit TuThSa@1700 SC Last administered on 02/28/19 19:56; Admin Dose 4,000 UNIT; Start 02/23/19 at 17:00 Fluticasone Propionate (Flonase 0.05% Nasal) 1 spray DAILY NASAL Last administered on 03/01/19at 15:28; Admin Dose 1 SPRAY; Start 02/23/19 at 16:30 Dextrose/Sodium Chloride 1,000 ml @ 20 mls/hr Q24H IV Last administered on 02/27/19 17:04; Admin Dose 20 MLS/HR; Start 02/27/19 at 16:30 Hydralazine HCl (Apresoline) 20 mg Q6H PRN IV ELEVATED SYSTOLIC BP Last administered on 02/28/19 10:39; Admin Dose 20 MG; Start 02/28/19 at 00:30 Vancomycin HCl (Vanco Iv Per Pharmacy) VANCOMYCIN PER PHARMACY PER PROTOCOL XX ; Start 02/28/19 at 11:00 Cefepime HCl 50 ml @ 100 mls/hr DAILY IVPB Last administered on 03/01/19at 08:55; Admin Dose 100 MLS/HR; Start 02/28/19 at 11:00 Miscellaneous Information (*Rx Drug Level Order Reminder*) RANDOM VANCOMYCIN LEVEL 7... 0500 ONCE XX ; Start 03/02/19 at 05:00; Stop 03/02/19 at 05:01 Acyclovir 370 mg/ Dextrose 100 ml @ 100 mls/hr Q24H IVPB Last administered on 03/01/19at 18:18; Admin Dose 100 MLS/HR; Start 02/28/19 at 18:00 Assessment/Plan Hospital Course (Demo Recall) 1. Complete heart block/s/p normal functioning permanent pacemaker 2. Episode of reported bradycardia by nurses: Most likely secondary to PVCs. Will monitor on telemetry for any significant other and arrhythmia or pacemaker malfunction 3. Herpes zoster infection 4. Renal failure on dialysis 5. Hypertension 6. History of diabetes: Coronary good control 7. Ventricular arrhythmias and frequent PVCs 8. Acute encephalopathy and altered level of consciousness: Recommendation: Patient will monitor on telemetry. Hemodialysis to be continued as per renal Antibiotic/antiviral management as per internal medicine and ID recommendations Follow-up with neurology recommendations Thank you his referral. We will continue to follow along with you YOSEPH CARCAMO MD [facility] YOSEPH CARCAMO MD Mar 01, 2019 19:32
[2019-03-02] VITALS (52 sets, daily range): BP systolic 103–175; BP diastolic 49–145; PULSE 86–108; RESP 10–21
[2019-03-02] MEDS: ACCU-CHEK XX SCH ×5 (01:50→21:00)
[2019-03-02] MEDS: PANTOPRAZOLE (EC) 40 MG TAB PO SCH (05:43)
[2019-03-02] MEDS: METOPROLOL (XL) 50 MG TAB PO SCH (08:43)
[2019-03-02] MEDS: CEFEPIME 1GM/50 ML (PMX) 50 ML IVPB SCH (08:52)
[2019-03-02] MEDS: CALCIUM ACETATE 667 MG CAP PO SCH ×3 (08:53→17:35)
[2019-03-02] MEDS: FOLIC ACID 1 MG TAB PO SCH (08:53)
[2019-03-02] MEDS: CLOPIDOGREL 75 MG TAB PO SCH (08:53)
[2019-03-02] MEDS: FLUTICASONE 0.05% 16 GM NAS SPRAY NASAL SCH (08:54)
[2019-03-02] MEDS: LINAGLIPTIN 5 MG TABLET PO SCH (08:57)
[2019-03-02] MEDS: DOCUSATE SODIUM 100 MG CAP PO SCH (09:00)
[2019-03-02] MEDS: INSULIN ASPART [NOVOLOG] 3 ML PEN SC SCH ×4 (09:08→21:00)
[2019-03-02] MEDS: HEPARIN 5,000 UNIT/1 ML VIAL SC SCH ×2 (09:08→21:21)
--- NOTE | 2019-03-02 09:23 | CONS ---
Assessment/Plan Assessment/Plan Assessment/Plan (Recall) 68 F c/ ESRD.. and cardiac dysrhythmia NOS s/p PPM..among other comorbidities, who presents for evaluation of malaise, headache, and confusion following a recent forehead shingles eruption. She became obtunded on 02/27, prompting Tx to the ICU, and neurology consultation. 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 A superimposed acute cerebrovascular process is not entirely excluded.. CT head is unrevealing CTA head and neck is without multifocal stenoses. EEG was without epileptiform activity CSF is notable for a mild mononuclear pleocytosis.. P: Await CSF vzv pcr Other infectious workup and management per ID Limit sedating medications where possible Airway protection as indicated Other management and supportive care per primary Consultation Date/Type/Reason Admit Date/Time Feb 21, 2019 at 03:02 Type of Consult Neurology Reason for Consultation ams Requesting Provider: ELIANA NEELY MD Date/Time of Note DATE: 03/02/19 TIME: 09:22 24 HR Interval Summary Free Text/Dictation Continues icu care Exam/Review of Systems Exam Vitals Vital Signs Date Temp Pulse Resp B/P (MAP) Pulse Ox O2 O2 Flow FiO2 Time Delivery Rate 03/02/19 100 14 128/57 99 Nasal 2.0 07:00 (80) Cannula 03/02/19 98.9 04:30 02/28/19 24 05:53 Intake and Output 03/01/19 03/01/19 03/02/19 1515:00 23:00 07:00 IntakeIntake Total 390 ml 350 ml BalanceBalance 390 ml 350 ml Results Result Diagram: 03/02/19 0612 03/02/19 0612 Results 24hrs Laboratory Tests Test 03/01/19 09:53 03/01/19 11:52 03/01/19 17:32 03/01/19 20:53 Sodium Level 141 Potassium Level 4.4 Chloride Level 101 Carbon Dioxide Level 28 Anion Gap 12 Blood Urea Nitrogen 39 H Creatinine 6.15 H Est Glomerular 7 L Filtrat Rate mL/min Glucose Level 118 Calcium Level 9.3 Bedside Glucose 103 123 138 Test 03/02/19 01:49 03/02/19 06:12 03/02/19 06:49 03/02/19 08:56 Bedside Glucose 173 171 177 White Blood Count 6.8 Red Blood Count 2.64 L Hemoglobin 8.4 L Hematocrit 27.1 L Mean Corpuscular 102.7 H Volume Mean Corpuscular 31.8 Hemoglobin Mean Corpuscular 31.0 L Hemoglobin Concent Red Cell 18.3 H Distribution Width Platelet Count 350 Mean Platelet Volume 10.0 Immature 2.300 H Granulocytes % Neutrophils % Lymphocytes % Monocytes % Eosinophils % Basophils % Nucleated Red Blood 6.8 H Cells % Immature 0.160 H Granulocytes # Neutrophils # Lymphocytes # Monocytes # Eosinophils # Basophils # Nucleated Red Blood Cells # Sodium Level 139 Potassium Level 4.4 Chloride Level 100 Carbon Dioxide Level 26 Anion Gap 13 Blood Urea Nitrogen 58 H Creatinine 7.56 H Est Glomerular 5 L Filtrat Rate mL/min Glucose Level 169 Calcium Level 9.2 Phosphorus Level 5.6 H Magnesium Level 2.5 Random Vancomycin 18.7 Level Medications Medication Current Medications Calcium Acetate (Phoslo) 1,334 mg WITH MEALS PO Last administered on 03/02/19 08:53; Admin Dose 1,334 MG; Start 02/21/19 at 12:00 Clopidogrel Bisulfate (plaVIX) 75 mg DAILY PO Last administered on 03/02/19 08:53; Admin Dose 75 MG; Start 02/22/19 at 09:00 Docusate Sodium (Colace) 100 mg DAILY PO Last administered on 02/26/19 09:47; Admin Dose 100 MG; Start 02/22/19 at 09:00 Folic Acid (Folic Acid) 1 mg DAILY PO Last administered on 03/02/19 08:53; Admin Dose 1 MG; Start 02/22/19 at 09:00 Hydralazine HCl (Apresoline) 75 mg TID PO Last administered on 03/01/19 20:59; Admin Dose 75 MG; Start 02/21/19 at 13:00 Linagliptin (Tradjenta) 5 mg DAILY PO Last administered on 03/02/19 08:57; Admin Dose 5 MG; Start 02/22/19 at 09:00 Metoprolol Succinate (Toprol Xl) 50 mg DAILY PO Last administered on 02/26/19 09:51; Admin Dose 50 MG; Start 02/22/19 at 09:00 Ondansetron HCl (Zofran Odt) 4 mg Q6H PRN ODT NAUSEA AND/OR VOMITING; Start 02/21/19 at 10:00 Diagnostic Test (Pha) (Accu-Chek) 1 ea AC MEALS AND BEDTIME XX Last administered on 03/01/19 17:33; Admin Dose 1 EA; Start 02/21/19 at 11:30 Diagnostic Test (Pha) (Accu-Chek) 1 ea 02 XX ; Start 02/22/19 at 02:00 Insulin Aspart (Novolog Insulin Pen) NOVOLOG *MILD* ALGORITHM WITH MEALS BEDTIME SC Last administered on 03/02/19 09:08; Admin Dose 1 UNIT; Start 02/21/19 at 21:00 Hydralazine HCl (Apresoline) 10 mg Q6H PRN IV SBP >165 Last administered on 02/28/19 00:47; Admin Dose 10 MG; Start 02/21/19 at 19:30 Pantoprazole (Protonix Tab) 40 mg DAILY@06 PO Last administered on 03/02/19 05:43; Admin Dose 40 MG; Start 02/22/19 at 14:30 Heparin Sodium (Porcine) (Heparin (5000 Units/1ml)) 5,000 unit BID SC Last administered on 03/02/19 09:08; Admin Dose 5,000 UNIT; Start 02/22/19 at 21:00 Epoetin Carlos-epbx (Retacrit (Esrd)) 4,000 unit TuThSa@1700 SC Last administered on 02/28/19 19:56; Admin Dose 4,000 UNIT; Start 02/23/19 at 17:00 Fluticasone Propionate (Flonase 0.05% Nasal) 1 spray DAILY NASAL Last administered on 03/01/19 15:28; Admin Dose 1 SPRAY; Start 02/23/19 at 16:30 Dextrose/Sodium Chloride 1,000 ml @ 20 mls/hr Q24H IV Last administered on 02/27/19 17:04; Admin Dose 20 MLS/HR; Start 02/27/19 at 16:30 Hydralazine HCl (Apresoline) 20 mg Q6H PRN IV ELEVATED SYSTOLIC BP Last administered on 02/28/19 10:39; Admin Dose 20 MG; Start 02/28/19 at 00:30 Vancomycin HCl (Vanco Iv Per Pharmacy) VANCOMYCIN PER PHARMACY PER PROTOCOL XX ; Start 02/28/19 at 11:00 Cefepime HCl 50 ml @ 100 mls/hr DAILY IVPB Last administered on 03/02/19at 08:52; Admin Dose 100 MLS/HR; Start 02/28/19 at 11:00 Acyclovir 370 mg/ Dextrose 100 ml @ 100 mls/hr Q24H IVPB Last administered on 03/01/19at 18:18; Admin Dose 100 MLS/HR; Start 02/28/19 at 18:00 Vancomycin HCl 250 ml @ 125 mls/hr ONCE ONCE IVPB ; Start 03/02/19 at 21:00; Stop 03/02/19 at 22:59 ROSA KEANE Mar 02, 2019 09:23
--- NOTE | 2019-03-02 13:15 | PN ---
DATE: 03/02/2019 SUBJECTIVE: No acute changes overnight. The patient remains noncommunicative and lethargic. No fev ers overnight. WBC 6.8, platelets 350. INDWELLINGS: The patient has NG tube and right upper extremity AV fistula. MICROBIOLOGY: Blood culture on 02/27/2019 grew coagulase-negative staph species, 1 out of 2 sets. ANTIMICROBIALS: The patient remains on IV acyclovir, vancomycin and cefepime. MICROBIOLOGY: Repeat blood cultures negative. CSF cultures negative. PHYSICAL EXAMINATION: GENERAL: This is a well-developed, well-nourished elderly woman who is in no distress. HEENT: Head atraumatic, normocephalic. Sclerae anicteric. Buccal mucosa dry. NECK: Supple. CHEST: Rise symmetrical. Breath sounds diminished to bases. HEART: S1, S2. ABDOMEN: Soft, bowel tones present. EXTREMITIES: Without cyanosis. ASSESSMENT: 1. Acute encephalopathy, possibly viral encephalitis. 2. Status post shingles, patient had been on Valcyte since 02/06/2019. 3. Dysphagia. 4. End-stage renal disease. 5. Coagulase-negative staph bacteremia consistent with contaminant. 6. Diabetes. 7. Aseptic meningitis. PLAN: The patient remains stable, awaiting for CSF herpes zoster virus per PCR. Follow neurology re commendations. Dictated By: ADEOLA BRYAN BURR MACHINE OPERATOR for LIDA GARBER MD NI/NTS Conf#: [id number] DID#: [id number] CC: JEFF RAMOS MD;*EndCC*
--- NOTE | 2019-03-02 14:18 | CONS ---
Consult Date/Type/Reason Admit Date/Time Feb 21, 2019 at 03:02 Initial Consult Date 02/25/19 Type of Consultation: cv Requesting Provider: ELIANA NEELY MD Date/Time of Note DATE: 03/02/19 TIME: 14:17 Subjective Interventional cardiology follow-up progress note Subjective: Case discussed with the staff and Telemetry was reviewed. Patient has remained sinus rhythm with ventricular paced. with occasional PVCs d/w Patient has remained lethargic and nonverbal Patient is still being monitored in ICU Objective: General: no acute distress HEENT: NC/AT. pupils are equal. round. NECK: NO JVD. no stridor. CV: RRR. systolic murmur; no gallop or rubs. PULM: no wheezing or rhonchi. GI: SOFT, NT, ND, no rebound or guarding Extremity: trace B/L LE edema. no clubbing. neuro: Lethargic. Moves to painful stimuli Psych: calm and pleasant rectal: deferred Derm: Right upper forehead with crusted lesions EKG showed ventricular paced rhythm Head CT done February 27, 2019 shows: 1. Mild generalized cerebral and cerebellar volume loss and nonspecific chronic microvascular ischemic disease. 2. No evidence of intracranial masses hemorrhages or midline shift. 3. Right periorbital soft tissue swelling. No calvarial fractures. Objective Vitals Vital Signs Date Temp Pulse Resp B/P (MAP) Pulse Ox O2 O2 Flow FiO2 Time Delivery Rate 03/02/19 106 16 151/68 98 14:00 (95) 03/02/19 99.0 Nasal 2.0 12:00 Cannula 02/28/19 24 05:53 Intake and Output 03/01/19 03/01/19 03/02/19 1515:00 23:00 07:00 IntakeIntake Total 390 ml 385 ml BalanceBalance 390 ml 385 ml Results/Medications Result Diagram: 03/02/19 0612 03/02/19 0612 Results 24 hrs Laboratory Tests Test 03/01/19 17:32 03/01/19 20:53 03/02/19 01:49 03/02/19 06:12 Bedside Glucose 123 138 173 White Blood Count 6.8 Red Blood Count 2.64 L Hemoglobin 8.4 L Hematocrit 27.1 L Mean Corpuscular 102.7 H Volume Mean Corpuscular 31.8 Hemoglobin Mean Corpuscular 31.0 L Hemoglobin Concent Red Cell 18.3 H Distribution Width Platelet Count 350 Mean Platelet Volume 10.0 Immature 2.300 H Granulocytes % Neutrophils % Segmented 73 Neutrophils % (Manual) Lymphocytes % Lymphocytes % 8 L (Manual) Monocytes % Monocytes % (Manual) 18 H Eosinophils % Eosinophils % 1 (Manual) Basophils % Nucleated Red Blood 12 H Cells % Immature 0.160 H Granulocytes # Neutrophils # Lymphocytes (Manual) 0.5 L Lymphocytes # Monocytes # Monocytes # (Manual) 1.2 H Eosinophils # Basophils # Nucleated Red Blood Cells # White Cell @See below Morphology Comment Platelet Estimate NORMAL Platelet Morphology @See below Comment Polychromasia 2+ Anisocytosis 2+ Macrocytosis 1+ Red Cell Morphology @See below Comment Sodium Level 139 Potassium Level 4.4 Chloride Level 100 Carbon Dioxide Level 26 Anion Gap 13 Blood Urea Nitrogen 58 H Creatinine 7.56 H Est Glomerular 5 L Filtrat Rate mL/min Glucose Level 169 Calcium Level 9.2 Phosphorus Level 5.6 H Magnesium Level 2.5 Random Vancomycin 18.7 Level Test 03/02/19 06:49 03/02/19 08:56 03/02/19 12:38 Bedside Glucose 171 177 169 Home Meds Active Scripts Hydrocodone/Acetaminophen ([place] 5-325 Tablet) 1 Each Tablet, 1 TAB PO TID PRN for PAIN, #12 TAB Prov:CHIQUITA JAVED MD 02/04/19 Ondansetron (Ondansetron Odt) 4 Mg Tab.rapdis, 4 MG PO Q6H PRN for NAUSEA AND/OR VOMITING, #10 TAB Prov:MK DUGGAN MD 01/28/19 Loperamide Hcl* (Imodium*) 2 Mg Capsule, 2 MG PO .AFTER EA LOOSE BM PRN for DIARRHEA, #20 TAB Prov:MK DUGGAN MD 01/28/19 Ondansetron (Ondansetron Odt) 4 Mg Tab.rapdis, 4 MG PO Q6H PRN for NAUSEA AND/OR VOMITING, #10 TAB Prov:TON ALMEIDA PA-C 01/16/19 Reported Medications Multivit/Ca Carb/B Cmplx/Fa* (Shanti-Horacio*) 1 Tab Tab, 1 TAB PO DAILY for 30 Days, #30 02/21/19 Clopidogrel Bisulfate (Clopidogrel) 75 Mg Tablet, 75 MG PO DAILY for 60 Days, #60 TAB 02/21/19 Gabapentin* (Gabapentin*) 100 Mg Capsule, 100 MG PO BID for 30 Days, #60 02/21/19 Diphenhydramine Hcl (BANOPHEN) 50 Mg Capsule, 50 MG PO DAILY PRN for ALLERGIC REACTION 02/21/19 valAcyclovir Hcl* (valACYclovir Hcl*) 500 Mg Tablet, 1000 MG PO TID, TAB 02/21/19 Hydralazine Hcl* (Hydralazine Hcl*) 25 Mg Tab, 75 MG PO TID, #90 TAB 10/12/18 Linagliptin (TRADJENTA) 5 Mg Tablet, 5 MG PO DAILY, TAB 10/12/18 Metoprolol Succinate* (Toprol XL*) 50 Mg Tab.er.24h, 50 MG PO DAILY, #30 TAB 10/12/18 Calcium Acetate* (Calcium Acetate*) 667 Mg Capsule, 1334 MG PO WITH MEALS, #60 CAP 10/12/18 Folic Acid* (Folic Acid*) 1 Mg Tablet, 1 MG PO DAILY, TAB 10/12/18 Docusate Sodium* (Colace*) 100 Mg Capsule, 100 MG PO DAILY, #30 CAP 10/12/18 Pantoprazole* (Protonix*) 40 Mg Tablet.dr, 40 MG PO DAILY, TAB 10/04/18 Cholecalciferol* (Vitamin D*) 400 Unit Tablet, 400 UNIT PO BID, TAB 10/04/18 Medications Current Medications Calcium Acetate (Phoslo) 1,334 mg WITH MEALS PO Last administered on 03/02/19at 08:53; Admin Dose 1,334 MG; Start 02/21/19 at 12:00 Clopidogrel Bisulfate (plaVIX) 75 mg DAILY PO Last administered on 03/02/19at 08:53; Admin Dose 75 MG; Start 02/22/19 at 09:00 Docusate Sodium (Colace) 100 mg DAILY PO Last administered on 02/26/19at 09:47; Admin Dose 100 MG; Start 02/22/19 at 09:00 Folic Acid (Folic Acid) 1 mg DAILY PO Last administered on 03/02/19at 08:53; Admin Dose 1 MG; Start 02/22/19 at 09:00 Hydralazine HCl (Apresoline) 75 mg TID PO Last administered on 03/01/19at 20:59; Admin Dose 75 MG; Start 02/21/19 at 13:00 Linagliptin (Tradjenta) 5 mg DAILY PO Last administered on 03/02/19 08:57; Admin Dose 5 MG; Start 02/22/19 at 09:00 Metoprolol Succinate (Toprol Xl) 50 mg DAILY PO Last administered on 02/26/19 09:51; Admin Dose 50 MG; Start 02/22/19 at 09:00 Ondansetron HCl (Zofran Odt) 4 mg Q6H PRN ODT NAUSEA AND/OR VOMITING; Start 02/21/19 at 10:00 Diagnostic Test (Pha) (Accu-Chek) 1 ea AC MEALS AND BEDTIME XX Last ad ministered on 03/01/19 17:33; Admin Dose 1 EA; Start 02/21/19 at 11:30 Diagnostic Test (Pha) (Accu-Chek) 1 ea 02 XX ; Start 02/22/19 at 02:00 Insulin Aspart (Novolog Insulin Pen) NOVOLOG *MILD* ALGORITHM WITH MEALS BEDTIME SC Last administered on 03/02/19 12:44; Admin Dose 1 UNIT; Start 02/21/19 at 21:00 Hydralazine HCl (Apresoline) 10 mg Q6H PRN IV SBP >165 Last administered on 02/28/19 00:47; Admin Dose 10 MG; Start 02/21/19 at 19:30 Pantoprazole (Protonix Tab) 40 mg DAILY@06 PO Last administered on 03/02/19 05:43; Admin Dose 40 MG; Start 02/22/19 at 14:30 Heparin Sodium (Porcine) (Heparin (5000 Units/1ml)) 5,000 unit BID SC Last administered on 03/02/19 09:08; Admin Dose 5,000 UNIT; Start 02/22/19 at 21:00 Epoetin Carlos-epbx (Retacrit (Esrd)) 4,000 unit TuThSa@1700 SC Last administered on 02/28/19 19:56; Admin Dose 4,000 UNIT; Start 02/23/19 at 17:00 Fluticasone Propionate (Flonase 0.05% Nasal) 1 spray DAILY NASAL Last administered on 03/01/19 15:28; Admin Dose 1 SPRAY; Start 02/23/19 at 16:30 Dextrose/Sodium Chloride 1,000 ml @ 20 mls/hr Q24H IV Last administered on 02/27/19at 17:04; Admin Dose 20 MLS/HR; Start 02/27/19 at 16:30 Hydralazine HCl (Apresoline) 20 mg Q6H PRN IV ELEVATED SYSTOLIC BP Last administered on 02/28/19at 10:39; Admin Dose 20 MG; Start 02/28/19 at 00:30 Vancomycin HCl (Vanco Iv Per Pharmacy) VANCOMYCIN PER PHARMACY PER PROTOCOL XX ; Start 02/28/19 at 11:00 Cefepime HCl 50 ml @ 100 mls/hr DAILY IVPB Last administered on 03/02/19at 08:5 2; Admin Dose 100 MLS/HR; Start 02/28/19 at 11:00 Acyclovir 370 mg/ Dextrose 100 ml @ 100 mls/hr Q24H IVPB Last administered on 03/01/19at 18:18; Admin Dose 100 MLS/HR; Start 02/28/19 at 18:00 Vancomycin HCl 250 ml @ 125 mls/hr ONCE ONCE IVPB ; Start 03/02/19 at 21:00; Stop 03/02/19 at 22:59 Assessment/Plan Hospital Course (Demo Recall) 1. Complete heart block/s/p normal functioning permanent pacemaker 2. Episode of reported bradycardia by nurses: Most likely secondary to PVCs. Will monitor on telemetry for any significant other and arrhythmia or pacemaker malfunction 3. Herpes zoster infection 4. Renal failure on dialysis 5. Hypertension 6. History of diabetes: Coronary good control 7. Ventricular arrhythmias and frequent PVCs 8. Acute encephalopathy and altered level of consciousness: Recommendation: Patient will monitor on telemetry. Hemodialysis to be continued as per renal Antibiotic/antiviral management as per internal medicine and ID recommendations Follow-up with neurology recommendations. f/u CSF results Thank you his referral. We will continue to follow along with you YOSEPH CARCAMO MD [facility] YOSEPH CARCAMO MD Mar 02, 2019 14:18
--- NOTE | 2019-03-02 15:02 | CONS ---
Consult Date/Type/Reason Admit Date/Time Feb 21, 2019 at 03:02 Initial Consult Date 02/28/19 Type of Consultation: Pulm/CCM Requesting Provider: ELIANA NEELY MD Date/Time of Note DATE: 03/02/19 TIME: 15:00 Subjective No events. Remains somnolent. Objective Vitals Vital Signs Date Temp Pulse Resp B/P (MAP) Pulse Ox O2 O2 Flow FiO2 Time Delivery Rate 03/02/19 106 16 151/68 98 14:00 (95) 03/02/19 99.0 Nasal 2.0 12:00 Cannula 02/28/19 24 05:53 Intake and Output 03/01/19 03/01/19 03/02/19 1515:00 23:00 07:00 IntakeIntake Total 390 ml 385 ml BalanceBalance 390 ml 385 ml Exam HEENT: Neck supple; no JVD; no LAD CVS: RRR, S1 and S2 CHEST: Clear ABD: Soft, NT, + BS EXT: No c/c/e Results/Medications Result Diagram: 03/02/19 0612 03/02/19 0612 Results 24 hrs Laboratory Tests Test 03/01/19 17:32 03/01/19 20:53 03/02/19 01:49 03/02/19 06:12 Bedside Glucose 123 138 173 White Blood Count 6.8 Red Blood Count 2.64 L Hemoglobin 8.4 L Hematocrit 27.1 L Mean Corpuscular 102.7 H Volume Mean Corpuscular 31.8 Hemoglobin Mean Corpuscular 31.0 L Hemoglobin Concent Red Cell 18.3 H Distribution Width Platelet Count 350 Mean Platelet Volume 10.0 Immature 2.300 H Granulocytes % Neutrophils % Segmented 73 Neutrophils % (Manual) Lymphocytes % Lymphocytes % 8 L (Manual) Monocytes % Monocytes % (Manual) 18 H Eosinophils % Eosinophils % 1 (Manual) Basophils % Nucleated Red Blood 12 H Cells % Immature 0.160 H Granulocytes # Neutrophils # Lymphocytes (Manual) 0.5 L Lymphocytes # Monocytes # Monocytes # (Manual) 1.2 H Eosinophils # Basophils # Nucleated Red Blood Cells # White Cell @See below Morphology Comment Platelet Estimate NORMAL Platelet Morphology @See below Comment Polychromasia 2+ Anisocytosis 2+ Macrocytosis 1+ Red Cell Morphology @See below Comment Sodium Level 139 Potassium Level 4.4 Chloride Level 100 Carbon Dioxide Level 26 Anion Gap 13 Blood Urea Nitrogen 58 H Creatinine 7.56 H Est Glomerular 5 L Filtrat Rate mL/min Glucose Level 169 Calcium Level 9.2 Phosphorus Level 5.6 H Magnesium Level 2.5 Random Vancomycin 18.7 Level Test 03/02/19 06:49 03/02/19 08:56 03/02/19 12:38 Bedside Glucose 171 177 169 Home Meds Active Scripts Hydrocodone/Acetaminophen ([place] 5-325 Tablet) 1 Each Tablet, 1 TAB PO TID PRN for PAIN, #12 TAB Prov:CHIQUITA JAVED MD 02/04/19 Ondansetron (Ondansetron Odt) 4 Mg Tab.rapdis, 4 MG PO Q6H PRN for NAUSEA AND/OR VOMITING, #10 TAB Prov:MK DUGGAN MD 01/28/19 Loperamide Hcl* (Imodium*) 2 Mg Capsule, 2 MG PO .AFTER EA LOOSE BM PRN for DIARRHEA, #20 TAB Prov:MK DUGGAN MD 01/28/19 Ondansetron (Ondansetron Odt) 4 Mg Tab.rapdis, 4 MG PO Q6H PRN for NAUSEA AND/OR VOMITING, #10 TAB Prov:TON ALMEIDA PA-C 01/16/19 Reported Medications Multivit/Ca Carb/B Cmplx/Fa* (Shanti-Horacio*) 1 Tab Tab, 1 TAB PO DAILY for 30 Days, #30 02/21/19 Clopidogrel Bisulfate (Clopidogrel) 75 Mg Tablet, 75 MG PO DAILY for 60 Days, #60 TAB 02/21/19 Gabapentin* (Gabapentin*) 100 Mg Capsule, 100 MG PO BID for 30 Days, #60 02/21/19 Diphenhydramine Hcl (BANOPHEN) 50 Mg Capsule, 50 MG PO DAILY PRN for ALLERGIC REACTION 02/21/19 valAcyclovir Hcl* (valACYclovir Hcl*) 500 Mg Tablet, 1000 MG PO TID, TAB 02/21/19 Hydralazine Hcl* (Hydralazine Hcl*) 25 Mg Tab, 75 MG PO TID, #90 TAB 10/12/18 Linagliptin (TRADJENTA) 5 Mg Tablet, 5 MG PO DAILY, TAB 10/12/18 Metoprolol Succinate* (Toprol XL*) 50 Mg Tab.er.24h, 50 MG PO DAILY, #30 TAB 3/8/19 Calcium Acetate* (Calcium Acetate*) 667 Mg Capsule, 1334 MG PO WITH MEALS, #60 CAP 10/12/18 Folic Acid* (Folic Acid*) 1 Mg Tablet, 1 MG PO DAILY, TAB 10/12/18 Docusate Sodium* (Colace*) 100 Mg Capsule, 100 MG PO DAILY, #30 CAP 10/12/18 Pantoprazole* (Protonix*) 40 Mg Tablet.dr, 40 MG PO DAILY, TAB 10/04/18 Cholecalciferol* (Vitamin D*) 400 Unit Tablet, 400 UNIT PO BID, TAB 10/04/18 Medications Current Medications Calcium Acetate (Phoslo) 1,334 mg WITH MEALS PO Last administered on 03/02/19 08:53; Admin Dose 1,334 MG; Start 02/21/19 at 12:00 Clopidogrel Bisulfate (plaVIX) 75 mg DAILY PO Last administered on 03/02/19 08:53; Admin Dose 75 MG; Start 02/22/19 at 09:00 Docusate Sodium (Colace) 100 mg DAILY PO Last administered on 02/26/19 09:47; Admin Dose 100 MG; Start 02/22/19 at 09:00 Folic Acid (Folic Acid) 1 mg DAILY PO Last administered on 03/02/19 08:53; Admin Dose 1 MG; Start 02/22/19 at 09:00 Hydralazine HCl (Apresoline) 75 mg TID PO Last administered on 03/01/19 20:59; Admin Dose 75 MG; Start 02/21/19 at 13:00 Linagliptin (Tradjenta) 5 mg DAILY PO Last administered on 03/02/19 08:57; Admin Dose 5 MG; Start 02/22/19 at 09:00 Metoprolol Succinate (Toprol Xl) 50 mg DAILY PO Last administered on 02/26/19 09:51; Admin Dose 50 MG; Start 02/22/19 at 09:00 Ondansetron HCl (Zofran Odt) 4 mg Q6H PRN ODT NAUSEA AND/OR VOMITING; Start 02/21/19 at 10:00 Diagnostic Test (Pha) (Accu-Chek) 1 ea AC MEALS AND BEDTIME XX Last administered on 03/01/19at 17:33; Admin Dose 1 EA; Start 02/21/19 at 11:30 Diagnostic Test (Pha) (Accu-Chek) 1 ea 02 XX ; Start 02/22/19 at 02:00 Insulin Aspart (Novolog Insulin Pen) NOVOLOG *MILD* ALGORITHM WITH MEALS BEDTIME SC Last administered on 03/02/19 12:44; Admin Dose 1 UNIT; Start 02/21/19 at 21:00 Hydralazine HCl (Apresoline) 10 mg Q6H PRN IV SBP >165 Last administered on 02/28/19 00:47; Admin Dose 10 MG; Start 02/21/19 at 19:30 Pantoprazole (Protonix Tab) 40 mg DAILY@06 PO Last administered on 03/02/19 05:43; Admin Dose 40 MG; Start 02/22/19 at 14:30 Heparin Sodium (Porcine) (Heparin (5000 Units/1ml)) 5,000 unit BID SC Last administered on 03/02/19 09:08; Admin Dose 5,000 UNIT; Start 02/22/19 at 21:00 Epoetin Carlos-epbx (Retacrit (Esrd)) 4,000 unit TuThSa@1700 SC Last administered on 02/28/19 19:56; Admin Dose 4,000 UNIT; Start 02/23/19 at 17:00 Fluticasone Propionate (Flonase 0.05% Nasal) 1 spray DAILY NASAL Last administered on 03/01/19 15:28; Admin Dose 1 SPRAY; Start 02/23/19 at 16:30 Dextrose/Sodium Chloride 1,000 ml @ 20 mls/hr Q24H IV Last administered on 02/27/19 17:04; Admin Dose 20 MLS/HR; Start 02/27/19 at 16:30 Hydralazine HCl (Apresoline) 20 mg Q6H PRN IV ELEVATED SYSTOLIC BP Last administered on 02/28/19 10:39; Admin Dose 20 MG; Start 02/28/19 at 00:30 Vancomycin HCl (Vanco Iv Per Pharmacy) VANCOMYCIN PER PHARMACY PER PROTOCOL XX ; Start 02/28/19 at 11:00 Cefepime HCl 50 ml @ 100 mls/hr DAILY IVPB Last administered on 03/02/19 08:52; Admin Dose 100 MLS/HR; Start 02/28/19 at 11:00 Acyclovir 370 mg/ Dextrose 100 ml @ 100 mls/hr Q24H IVPB Last administered on 03/01/19at 18:18; Admin Dose 100 MLS/HR; Start 02/28/19 at 18:00 Vancomycin HCl 250 ml @ 125 mls/hr ONCE ONCE IVPB ; Start 03/02/19 at 21:00; Stop 03/02/19 at 22:59 Assessment/Plan Hospital Course (Demo Recall) IMP: 1. 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 ESRD on HD 3. History of SSS s/p per 4. Chronic anemia. 5. History of hypertension RECS: 1. Neuro work-up in progress 2. Follow-up MRI/EEG 3. Am labs 4. Aspiration precautions 5. Limit sedatives/narcotics 35 min cc time SKY CHAVIRA MD Mar 02, 2019 15:02
[2019-03-02] MEDS: DEXTROSE 5%-0.45% NACL 1,000 ML IV SCH (15:20)
--- NOTE | 2019-03-02 16:27 | PN ---
Date/Time of Note Date/Time of Note DATE: 03/02/19 TIME: 16:25 Assessment/Plan VTE Prophylaxis Risk score (from [facility])>0 risk: 13 SCD applied (from [facility]): No SCD contraindicated: low risk/ambulating Pharmacological prophylaxis: NA/contraindicated Pharm contraindication: low risk/ambulating Lines/Catheters IV C[facility]ter Type [facility]from [facility] Mid Line Urinary Cath still in place: No Assessment/Plan Hospital Course # AMS likely secondary to encephalitis due to meds vs encephalitis ? viral likely herpes LP +15WBC and 100mono partially treated EEG slowing. now has gram pos bacterimia coagulase +bacterimia #Headaches. resolved. 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 The patient has mild leukocytosis, resolved. Currently, the patient does not have any evidence of any meningitis. Little lethargic #. Basilar opacity with pneumonia. Chest x-ray ordered # End stage renal disease, on hemodialysis. # Left lower extremity edema, anasarca. # Hypertension, normotensive now. 7. Diabetes mellitus type II, controlled blood sugar is normal. 8. Hyperlipidemia. 9. History of ovarian tumor. 10. Anemia of CD 11. Overweight 12. Hepatitis B 13. Mild scattered paranasal sinus disease with small mucoid secretion in the right sphenoid sinus, correlate for acute sinusitis. CT scan seen Assessment/Plan - still somnolent - good HD session today - iv vanco/cefepime and acylvir -ct angio negative - CW plavix - cw trradenta, - dcd5.1/2 NS while npo, cw NG feeding - aspiration precautions - Continue with Epogen - Renally dose al meds spoke to at bedside Result Diagram: 03/02/19 0612 03/02/19 0612 Results 24hrs Laboratory Tests Test 03/01/19 17:32 03/01/19 20:53 03/02/19 01:49 03/02/19 06:12 Bedside Glucose 123 138 173 White Blood Count 6.8 Red Blood Count 2.64 L Hemoglobin 8.4 L Hematocrit 27.1 L Mean Corpuscular 102.7 H Volume Mean Corpuscular 31.8 Hemoglobin Mean Corpuscular 31.0 L Hemoglobin Concent Red Cell 18.3 H Distribution Width Platelet Count 350 Mean Platelet Volume 10.0 Immature 2.300 H Granulocytes % Neutrophils % Segmented 73 Neutrophils % (Manual) Lymphocytes % Lymphocytes % 8 L (Manual) Monocytes % Monocytes % (Manual) 18 H Eosinophils % Eosinophils % 1 (Manual) Basophils % Nucleated Red Blood 12 H Cells % Immature 0.160 H Granulocytes # Neutrophils # Lymphocytes (Manual) 0.5 L Lymphocytes # Monocytes # Monocytes # (Manual) 1.2 H Eosinophils # Basophils # Nucleated Red Blood Cells # White Cell @See below Morphology Comment Platelet Estimate NORMAL Platelet Morphology @See below Comment Polychromasia 2+ Anisocytosis 2+ Macrocytosis 1+ Red Cell Morphology @See below Comment Sodium Level 139 Potassium Level 4.4 Chloride Level 100 Carbon Dioxide Level 26 Anion Gap 13 Blood Urea Nitrogen 58 H Creatinine 7.56 H Est Glomerular 5 L Filtrat Rate mL/min Glucose Level 169 Calcium Level 9.2 Phosphorus Level 5.6 H Magnesium Level 2.5 Random Vancomycin 18.7 Level Test 03/02/19 06:49 03/02/19 08:56 03/02/19 12:38 Bedside Glucose 171 177 169 Subjective 24 Hr Interval Summary Free Text/Dictation still somnolent Exam/Review of Systems Exam Vitals Vital Signs Date Temp Pulse Resp B/P (MAP) Pulse Ox O2 O2 Flow FiO2 Time Delivery Rate 03/02/19 104 16:10 03/02/19 16 155/67 98 Nasal 2.0 15:25 (96) Cannula 03/02/19 99.0 12:00 02/28/19 24 05:53 Intake and Output 03/01/19 03/01/19 03/02/19 1414:59 22:59 06:59 IntakeIntake Total 350 ml 390 ml BalanceBalance 350 ml 390 ml Exam HEENT crusted lesions on rt side of face, grimaces on sternal rub, dont follow commands, Pupils equal and reactive to light moves all extremities no neck rigity iveth Neck: supple, no thyromegaly, no carotid bruits Lungs: clear bilaterally, decreased. CVS: regular rate and rhythm, no murmurs Abdomen: soft, bowel sounds present, no hepatosplenomegally, no masses, no rebound or guarding. Obese pacemaker rt fistula cn nerve exam limited reflexes 2 + Results Results 24hrs Laboratory Tests Test 03/01/19 17:32 03/01/19 20:53 03/02/19 01:49 03/02/19 06:12 Bedside Glucose 123 138 173 White Blood Count 6.8 Red Blood Count 2.64 L Hemoglobin 8.4 L Hematocrit 27.1 L Mean Corpuscular 102.7 H Volume Mean Corpuscular 31.8 Hemoglobin Mean Corpuscular 31.0 L Hemoglobin Concent Red Cell 18.3 H Distribution Width Platelet Count 350 Mean Platelet Volume 10.0 Immature 2.300 H Granulocytes % Neutrophils % Segmented 73 Neutrophils % (Manual) Lymphocytes % Lymphocytes % 8 L (Manual) Monocytes % Monocytes % (Manual) 18 H Eosinophils % Eosinophils % 1 (Manual) Basophils % Nucleated Red Blood 12 H Cells % Immature 0.160 H Granulocytes # Neutrophils # Lymphocytes (Manual) 0.5 L Lymphocytes # Monocytes # Monocytes # (Manual) 1.2 H Eosinophils # Basophils # Nucleated Red Blood Cells # White Cell @See below Morphology Comment Platelet Estimate NORMAL Platelet Morphology @See below Comment Polychromasia 2+ Anisocytosis 2+ Macrocytosis 1+ Red Cell Morphology @See below Comment Sodium Level 139 Potassium Level 4.4 Chloride Level 100 Carbon Dioxide Level 26 Anion Gap 13 Blood Urea Nitrogen 58 H Creatinine 7.56 H Est Glomerular 5 L Filtrat Rate mL/min Glucose Level 169 Calcium Level 9.2 Phosphorus Level 5.6 H Magnesium Level 2.5 Random Vancomycin 18.7 Level Test 03/02/19 06:49 03/02/19 08:56 03/02/19 12:38 Bedside Glucose 171 177 169 Medications Medication Current Medications Calcium Acetate (Phoslo) 1,334 mg WITH MEALS PO Last administered on 03/02/19 08:53; Admin Dose 1,334 MG; Start 02/21/19 at 12:00 Clopidogrel Bisulfate (plaVIX) 75 mg DAILY PO Last administered on 03/02/19 08:53; Admin Dose 75 MG; Start 02/22/19 at 09:00 Docusate Sodium (Colace) 100 mg DAILY PO Last administered on 02/26/19 09:47; Admin Dose 100 MG; Start 02/22/19 at 09:00 Folic Acid (Folic Acid) 1 mg DAILY PO Last administered on 03/02/19 08:53; Admin Dose 1 MG; Start 02/22/19 at 09:00 Hydralazine HCl (Apresoline) 75 mg TID PO Last administered on 03/01/19 20:59; Admin Dose 75 MG; Start 02/21/19 at 13:00 Linagliptin (Tradjenta) 5 mg DAILY PO Last administered on 03/02/19 08:57; Admin Dose 5 MG; Start 02/22/19 at 09:00 Metoprolol Succinate (Toprol Xl) 50 mg DAILY PO Last administered on 02/26/19 09:51; Admin Dose 50 MG; Start 02/22/19 at 09:00 Ondansetron HCl (Zofran Odt) 4 mg Q6H PRN ODT NAUSEA AND/OR VOMITING; Start 02/21/19 at 10:00 Diagnostic Test (Pha) (Accu-Chek) 1 ea AC MEALS AND BEDTIME XX Last administered on 03/01/19 17:33; Admin Dose 1 EA; Start 02/21/19 at 11:30 Diagnostic Test (Pha) (Accu-Chek) 1 ea 02 XX ; Start 02/22/19 at 02:00 Insulin Aspart (Novolog Insulin Pen) NOVOLOG *MILD* ALGORITHM WITH MEALS BEDTIME SC Last administered on 03/02/19 12:44; Admin Dose 1 UNIT; Start 02/21/19 at 21:00 Hydralazine HCl (Apresoline) 10 mg Q6H PRN IV SBP >165 Last administered on 02/28/19 00:47; Admin Dose 10 MG; Start 02/21/19 at 19:30 Pantoprazole (Protonix Tab) 40 mg DAILY@06 PO Last administered on 03/02/19 05:43; Admin Dose 40 MG; Start 02/22/19 at 14:30 Heparin Sodium (Porcine) (Heparin (5000 Units/1ml)) 5,000 unit BID SC Last administered on 03/02/19 09:08; Admin Dose 5,000 UNIT; Start 02/22/19 at 21:00 Epoetin Carlos-epbx (Retacrit (Esrd)) 4,000 unit TuThSa@1700 SC Last administered on 02/28/19 19:56; Admin Dose 4,000 UNIT; Start 02/23/19 at 17:00 Fluticasone Propionate (Flonase 0.05% Nasal) 1 spray DAILY NASAL Last administered on 03/01/19 15:28; Admin Dose 1 SPRAY; Start 02/23/19 at 16:30 Hydralazine HCl (Apresoline) 20 mg Q6H PRN IV ELEVATED SYSTOLIC BP Last administered on 02/28/19at 10:39; Admin Dose 20 MG; Start 02/28/19 at 00:30 Vancomycin HCl (Vanco Iv Per Pharmacy) VANCOMYCIN PER PHARMACY PER PROTOCOL XX ; Start 02/28/19 at 11:00 Cefepime HCl 50 ml @ 100 mls/hr DAILY IVPB Last administered on 03/02/19at 08:52; Admin Dose 100 MLS/HR; Start 02/28/19 at 11:00 Acyclovir 370 mg/ Dextrose 100 ml @ 100 mls/hr Q24H IVPB Last administered on 03/01/19at 18:18; Admin Dose 100 MLS/HR; Start 02/28/19 at 18:00 Vancomycin HCl 250 ml @ 125 mls/hr ONCE ONCE IVPB ; Start 03/02/19 at 21:00; Stop 03/02/19 at 22:59 ELIANA NEELY MD Mar 02, 2019 16:27
[2019-03-02] MEDS: ACYCLOVIR IVPB SCH (20:58)
[2019-03-02] MEDS: DEXTROSE 5% IVPB SCH (20:58)
[2019-03-02] MEDS ORDERED: VANCOMYCIN 1 GM 250 ML IVPB ONE (21:00)
[2019-03-02] MEDS: EPOETIN ALFA-EPBX (ESRD) 4,000 UNIT/ML VIAL SC SCH (21:02)
[2019-03-03] VITALS (31 sets, daily range): BP systolic 122–162; BP diastolic 49–83; PULSE 73–109; RESP 11–26
[2019-03-03] MEDS: ACCU-CHEK XX SCH ×5 (02:00→21:29)
[2019-03-03] MEDS: PANTOPRAZOLE (EC) 40 MG TAB PO SCH (06:16)
[2019-03-03] MEDS: CALCIUM ACETATE 667 MG CAP PO SCH ×3 (07:35→16:34)
[2019-03-03] MEDS: INSULIN ASPART [NOVOLOG] 3 ML PEN SC SCH ×4 (07:35→21:00)
[2019-03-03] MEDS: DOCUSATE SODIUM 100 MG CAP PO SCH (08:23)
[2019-03-03] MEDS: FLUTICASONE 0.05% 16 GM NAS SPRAY NASAL SCH (08:23)
[2019-03-03] MEDS: METOPROLOL (XL) 50 MG TAB PO SCH ×2 (08:23→16:51)
[2019-03-03] MEDS: CEFEPIME 1GM/50 ML (PMX) 50 ML IVPB SCH (08:40)
[2019-03-03] MEDS: CLOPIDOGREL 75 MG TAB PO SCH (08:40)
[2019-03-03] MEDS: FOLIC ACID 1 MG TAB PO SCH (08:42)
[2019-03-03] MEDS: LINAGLIPTIN 5 MG TABLET PO SCH (08:43)
[2019-03-03] MEDS: HEPARIN 5,000 UNIT/1 ML VIAL SC SCH ×2 (09:10→21:27)
--- NOTE | 2019-03-03 13:02 | CONS ---
Consult Date/Type/Reason Admit Date/Time Feb 21, 2019 at 03:02 Initial Consult Date 02/28/19 Type of Consultation: Pulm/CCM Requesting Provider: ELIANA NEELY MD Date/Time of Note DATE: 03/03/19 TIME: 13:00 Subjective Much improved mental status. Patient now alert, awake and oriented. Objective Vitals Vital Signs Date Temp Pulse Resp B/P (MAP) Pulse Ox O2 O2 Flow FiO2 Time Delivery Rate 03/03/19 98.4 103 17 159/65 98 Nasal 2.0 12:00 (96) Cannula 03/02/19 17:41 Intake and Output 03/02/19 03/02/19 03/03/19 1515:00 23:00 07:00 IntakeIntake Total 380 ml 155 ml 426 ml OutputOutput Total 0 ml 2500 ml BalanceBalance 380 ml -2345 ml 426 ml Exam HEENT: Neck supple; no JVD; no LAD CVS: RRR, S1 and S2 CHEST: Clear ABD: Soft, NT, + BS EXT: No c/c/e NEURO: A&O x 3; Moves all extremities; DTRs symmetrical Results/Medications Result Diagram: 03/03/19 0436 03/03/19 0436 Results 24 hrs Laboratory Tests Test 03/02/19 17:59 03/02/19 21:44 03/03/19 04:36 03/03/19 08:47 Bedside Glucose 134 169 175 White Blood Count 7.5 Red Blood Count 2.54 L Hemoglobin 8.3 L Hematocrit 25.9 L Mean Corpuscular 102.0 H Volume Mean Corpuscular 32.7 Hemoglobin Mean Corpuscular 32.0 Hemoglobin Concent Red Cell 18.7 H Distribution Width Platelet Count 339 Mean Platelet Volume 10.1 Immature 3.600 H Granulocytes % Neutrophils % 70.7 Lymphocytes % 7.6 L Monocytes % 16.8 H Eosinophils % 0.9 Basophils % 0.4 Nucleated Red Blood 4.5 H Cells % Immature 0.270 H Granulocytes # Neutrophils # 5.3 Lymphocytes # 0.6 L Monocytes # 1.3 H Eosinophils # 0.1 Basophils # 0.0 Nucleated Red Blood 0.3 H Cells # Sodium Level 139 Potassium Level 4.0 Chloride Level 101 Carbon Dioxide Level 28 Anion Gap 10 Blood Urea Nitrogen 34 #H Creatinine 5.04 #H Est Glomerular 9 L Filtrat Rate mL/min Glucose Level 171 Calcium Level 9.1 Phosphorus Level 3.0 # Magnesium Level 2.3 Home Meds Active Scripts Hydrocodone/Acetaminophen ([place] 5-325 Tablet) 1 Each Tablet, 1 TAB PO TID PRN for PAIN, #12 TAB Prov:CHIQUITA JAVED MD 02/04/19 Ondansetron (Ondansetron Odt) 4 Mg Tab.rapdis, 4 MG PO Q6H PRN for NAUSEA AND/OR VOMITING, #10 TAB Prov:MK DUGGAN MD 01/28/19 Loperamide Hcl* (Imodium*) 2 Mg Capsule, 2 MG PO .AFTER EA LOOSE BM PRN for DIARRHEA, #20 TAB Prov:MK DUGGAN MD 01/28/19 Ondansetron (Ondansetron Odt) 4 Mg Tab.rapdis, 4 MG PO Q6H PRN for NAUSEA AND/OR VOMITING, #10 TAB Prov:TON ALMEIDA PA-C 01/16/19 Reported Medications Multivit/Ca Carb/B Cmplx/Fa* (Shanti-Horacio*) 1 Tab Tab, 1 TAB PO DAILY for 30 Days, #30 02/21/19 Clopidogrel Bisulfate (Clopidogrel) 75 Mg Tablet, 75 MG PO DAILY for 60 Days, #60 TAB 02/21/19 Gabapentin* (Gabapentin*) 100 Mg Capsule, 100 MG PO BID for 30 Days, #60 02/21/19 Diphenhydramine Hcl (BANOPHEN) 50 Mg Capsule, 50 MG PO DAILY PRN for ALLERGIC REACTION 02/21/19 valAcyclovir Hcl* (valACYclovir Hcl*) 500 Mg Tablet, 1000 MG PO TID, TAB 02/21/19 Hydralazine Hcl* (Hydralazine Hcl*) 25 Mg Tab, 75 MG PO TID, #90 TAB 10/12/18 Linagliptin (TRADJENTA) 5 Mg Tablet, 5 MG PO DAILY, TAB 10/12/18 Metoprolol Succinate* (Toprol XL*) 50 Mg Tab.er.24h, 50 MG PO DAILY, #30 TAB 10/12/18 Calcium Acetate* (Calcium Acetate*) 667 Mg Capsule, 1334 MG PO WITH MEALS, #60 CAP 10/12/18 Folic Acid* (Folic Acid*) 1 Mg Tablet, 1 MG PO DAILY, TAB 10/12/18 Docusate Sodium* (Colace*) 100 Mg Capsule, 100 MG PO DAILY, #30 CAP 10/12/18 Pantoprazole* (Protonix*) 40 Mg Tablet.dr, 40 MG PO DAILY, TAB 10/04/18 Cholecalciferol* (Vitamin D*) 400 Unit Tablet, 400 UNIT PO BID, TAB 10/04/18 Medications Current Medications Calcium Acetate (Phoslo) 1,334 mg WITH MEALS PO Last administered on 03/02/19 08:53; Admin Dose 1,334 MG; Start 02/21/19 at 12:00 Clopidogrel Bisulfate (plaVIX) 75 mg DAILY PO Last administered on 03/03/19 08:40; Admin Dose 75 MG; Start 02/22/19 at 09:00 Docusate Sodium (Colace) 100 mg DAILY PO Last administered on 02/26/19 09:47; Admin Dose 100 MG; Start 02/22/19 at 09:00 Folic Acid (Folic Acid) 1 mg DAILY PO Last administered on 03/03/19 08:42; Admin Dose 1 MG; Start 02/22/19 at 09:00 Hydralazine HCl (Apresoline) 75 mg TID PO Last administered on 03/03/19 08:42; Admin Dose 75 MG; Start 02/21/19 at 13:00 Linagliptin (Tradjenta) 5 mg DAILY PO Last administered on 03/03/19 08:43; Admin Dose 5 MG; Start 02/22/19 at 09:00 Metoprolol Succinate (Toprol Xl) 50 mg DAILY PO Last administered on 02/26/19 09:51; Admin Dose 50 MG; Start 02/22/19 at 09:00 Ondansetron HCl (Zofran Odt) 4 mg Q6H PRN ODT NAUSEA AND/OR VOMITING; Start 02/21/19 at 10:00 Diagnostic Test (Pha) (Accu-Chek) 1 ea AC MEALS AND BEDTIME XX Last administered on 03/01/19 17:33; Admin Dose 1 EA; Start 02/21/19 at 11:30 Diagnostic Test (Pha) (Accu-Chek) 1 ea 02 XX ; Start 02/22/19 at 02:00 Insulin Aspart (Novolog Insulin Pen) NOVOLOG *MILD* ALGORITHM WITH MEALS BEDTIME SC Last administered on 03/02/19 12:44; Admin Dose 1 UNIT; Start 02/21/19 at 21:00 Hydralazine HCl (Apresoline) 10 mg Q6H PRN IV SBP >165 Last administered on 00:47; Admin Dose 10 MG; Start 02/21/19 at 19:30 Pantoprazole (Protonix Tab) 40 mg DAILY@06 PO Last administered on 03/03/19 06:16; Admin Dose 40 MG; Start 02/22/19 at 14:30 Heparin Sodium (Porcine) (Heparin (5000 Units/1ml)) 5,000 unit BID SC Last administered on 03/03/19 09:10; Admin Dose 5,000 UNIT; Start 02/22/19 at 21:00 Epoetin Carlos-epbx (Retacrit (Esrd)) 4,000 unit TuThSa@1700 SC Last administered on 03/02/19 21:02; Admin Dose 4,000 UNIT; Start 02/23/19 at 17:00 Fluticasone Propionate (Flonase 0.05% Nasal) 1 spray DAILY NASAL Last administered on 03/01/19 15:28; Admin Dose 1 SPRAY; Start 02/23/19 at 16:30 Hydralazine HCl (Apresoline) 20 mg Q6H PRN IV ELEVATED SYSTOLIC BP Last administered on 02/28/19 10:39; Admin Dose 20 MG; Start 02/28/19 at 00:30 Vancomycin HCl (Vanco Iv Per Pharmacy) VANCOMYCIN PER PHARMACY PER PROTOCOL XX ; Start 02/28/19 at 11:00 Cefepime HCl 50 ml @ 100 mls/hr DAILY IVPB Last administered on 03/03/19 08:40; Admin Dose 100 MLS/HR; Start 02/28/19 at 11:00 Acyclovir 370 mg/ Dextrose 100 ml @ 100 mls/hr Q24H IVPB Last administered on 03/02/19 20:58; Admin Dose 100 MLS/HR; Start 02/28/19 at 18:00 Imaging IMP: 1. Encephalopathy--markedly improved s/p HD 2. ESRD on HD 3. History of SSS s/p per 4. Chronic anemia. 5. History of hypertension RECS: 1. Follow mental status closely 2. PT/OT consult 3. Speech therapy eval 4. Aspiration precautions 5. Limit sedatives/narcotics 35 min cc time Assessment/Plan Hospital Course (Demo Recall) IMP: 1. 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 ESRD on HD 3. History of SSS s/p per 4. Chronic anemia. 5. History of hypertension RECS: 1. Neuro work-up in progress 2. Follow-up MRI/EEG 3. Am labs 4. Aspiration precautions 5. Limit sedatives/narcotics 35 min cc time SKY CHAVIRA MD Mar 03, 2019 13:02
--- NOTE | 2019-03-03 13:36 | CONS ---
Consult Date/Type/Reason Admit Date/Time Feb 21, 2019 at 03:02 Initial Consult Date 02/25/19 Type of Consultation: cv Requesting Provider: ELIANA NEELY MD Date/Time of Note DATE: 03/03/19 TIME: 13:35 Subjective Interventional cardiology follow-up progress note Subjective: Case discussed with the staff and Telemetry was reviewed. Patient has remained sinus rhythm with ventricular paced. with occasional PVCs d/w family Patient is less lethargic and more responsive today Patient is still being monitored in ICU Objective: General: no acute distress HEENT: NC/AT. pupils are equal. round. NECK: NO JVD. no stridor. CV: RRR. systolic murmur; no gallop or rubs. PULM: no wheezing or rhonchi. GI: SOFT, NT, ND, no rebound or guarding Extremity: trace B/L LE edema. no clubbing. neuro: awake and Ox 2 Psych: calm and pleasant rectal: deferred Derm: Right upper forehead with crusted lesions EKG showed ventricular paced rhythm Head CT done February 27, 2019 shows: 1. Mild generalized cerebral and cerebellar volume loss and nonspecific chronic microvascular ischemic disease. 2. No evidence of intracranial masses hemorrhages or midline shift. 3. Right periorbital soft tissue swelling. No calvarial fractures. Objective Vitals Vital Signs Date Temp Pulse Resp B/P (MAP) Pulse Ox O2 O2 Flow FiO2 Time Delivery Rate 03/03/19 100 16 147/65 99 13:00 (92) 03/03/19 98.4 Nasal 2.0 12:00 Cannula 03/02/19 17:41 Intake and Output 03/02/19 03/02/19 03/03/19 1515:00 23:00 07:00 IntakeIntake Total 380 ml 155 ml 426 ml OutputOutput Total 0 ml 2500 ml BalanceBalance 380 ml -2345 ml 426 ml Results/Medications Result Diagram: 03/03/19 0436 03/03/19 0436 Results 24 hrs Laboratory Tests Test 03/02/19 17:59 03/02/19 21:44 03/03/19 04:36 03/03/19 08:47 Bedside Glucose 134 169 175 White Blood Count 7.5 Red Blood Count 2.54 L Hemoglobin 8.3 L Hematocrit 25.9 L Mean Corpuscular 102.0 H Volume Mean Corpuscular 32.7 Hemoglobin Mean Corpuscular 32.0 Hemoglobin Concent Red Cell 18.7 H Distribution Width Platelet Count 339 Mean Platelet Volume 10.1 Immature 3.600 H Granulocytes % Neutrophils % 70.7 Lymphocytes % 7.6 L Monocytes % 16.8 H Eosinophils % 0.9 Basophils % 0.4 Nucleated Red Blood 4.5 H Cells % Immature 0.270 H Granulocytes # Neutrophils # 5.3 Lymphocytes # 0.6 L Monocytes # 1.3 H Eosinophils # 0.1 Basophils # 0.0 Nucleated Red Blood 0.3 H Cells # Sodium Level 139 Potassium Level 4.0 Chloride Level 101 Carbon Dioxide Level 28 Anion Gap 10 Blood Urea Nitrogen 34 #H Creatinine 5.04 #H Est Glomerular 9 L Filtrat Rate mL/min Glucose Level 171 Calcium Level 9.1 Phosphorus Level 3.0 # Magnesium Level 2.3 Home Meds Active Scripts Hydrocodone/Acetaminophen ([place] 5-325 Tablet) 1 Each Tablet, 1 TAB PO TID PRN for PAIN, #12 TAB Prov:CHIQUITA JAVED MD 02/04/19 Ondansetron (Ondansetron Odt) 4 Mg Tab.rapdis, 4 MG PO Q6H PRN for NAUSEA AND/OR VOMITING, #10 TAB Prov:MK DUGGAN MD 01/28/19 Loperamide Hcl* (Imodium*) 2 Mg Capsule, 2 MG PO .AFTER EA LOOSE BM PRN for DIARRHEA, #20 TAB Prov:MK DUGGAN MD 01/28/19 Ondansetron (Ondansetron Odt) 4 Mg Tab.rapdis, 4 MG PO Q6H PRN for NAUSEA AND/OR VOMITING, #10 TAB Prov:TON ALMEIDA PA-C 01/16/19 Reported Medications Multivit/Ca Carb/B Cmplx/Fa* (Shanti-Horacio*) 1 Tab Tab, 1 TAB PO DAILY for 30 Days, #30 02/21/19 Clopidogrel Bisulfate (Clopidogrel) 75 Mg Tablet, 75 MG PO DAILY for 60 Days, #60 TAB 02/21/19 Gabapentin* (Gabapentin*) 100 Mg Capsule, 100 MG PO BID for 30 Days, #60 02/21/19 Diphenhydramine Hcl (BANOPHEN) 50 Mg Capsule, 50 MG PO DAILY PRN for ALLERGIC REACTION 02/21/19 valAcyclovir Hcl* (valACYclovir Hcl*) 500 Mg Tablet, 1000 MG PO TID, TAB 02/21/19 Hydralazine Hcl* (Hydralazine Hcl*) 25 Mg Tab, 75 MG PO TID, #90 TAB 10/12/18 Linagliptin (TRADJENTA) 5 Mg Tablet, 5 MG PO DAILY, TAB 10/12/18 Metoprolol Succinate* (Toprol XL*) 50 Mg Tab.er.24h, 50 MG PO DAILY, #30 TAB 10/12/18 Calcium Acetate* (Calcium Acetate*) 667 Mg Capsule, 1334 MG PO WITH MEALS, #60 CAP 10/12/18 Folic Acid* (Folic Acid*) 1 Mg Tablet, 1 MG PO DAILY, TAB 10/12/18 Docusate Sodium* (Colace*) 100 Mg Capsule, 100 MG PO DAILY, #30 CAP 10/12/18 Pantoprazole* (Protonix*) 40 Mg Tablet.dr, 40 MG PO DAILY, TAB 10/04/18 Cholecalciferol* (Vitamin D*) 400 Unit Tablet, 400 UNIT PO BID, TAB 10/04/18 Medications Current Medications Calcium Acetate (Phoslo) 1,334 mg WITH MEALS PO Last administered on 03/02/19at 08:53; Admin Dose 1,334 MG; Start 02/21/19 at 12:00 Clopidogrel Bisulfate (plaVIX) 75 mg DAILY PO Last administered on 03/03/19at 08:40; Admin Dose 75 MG; Start 02/22/19 at 09:00 Docusate Sodium (Colace) 100 mg DAILY PO Last administered on 02/26/19at 09:47; Admin Dose 100 MG; Start 02/22/19 at 09:00 Folic Acid (Folic Acid) 1 mg DAILY PO Last administered on 03/03/19 08:42; Admin Dose 1 MG; Start 02/22/19 at 09:00 Hydralazine HCl (Apresoline) 75 mg TID PO Last administered on 03/03/19at 08:42; Admin Dose 75 MG; Start 02/21/19 at 13:00 Linagliptin (Tradjenta) 5 mg DAILY PO Last administered on 03/03/19at 08:43; Admin Dose 5 MG; Start 02/22/19 at 09:00 Metoprolol Succinate (Toprol Xl) 50 mg DAILY PO Last administered on 02/26/19 09:51; Admin Dose 50 MG; Start 02/22/19 at 09:00 Ondansetron HCl (Zofran Odt) 4 mg Q6H PRN ODT NAUSEA AND/OR VOMITING; Start 02/21/19 at 10:00 Diagnostic Test (Pha) (Accu-Chek) 1 ea AC MEALS AND BEDTIME XX Last administe red on 03/01/19 17:33; Admin Dose 1 EA; Start 02/21/19 at 11:30 Diagnostic Test (Pha) (Accu-Chek) 1 ea 02 XX ; Start 02/22/19 at 02:00 Insulin Aspart (Novolog Insulin Pen) NOVOLOG *MILD* ALGORITHM WITH MEALS BEDTIME SC Last administered on 03/02/19 12:44; Admin Dose 1 UNIT; Start 02/21/19 at 21:00 Hydralazine HCl (Apresoline) 10 mg Q6H PRN IV SBP >165 Last administered on 02/28/19 00:47; Admin Dose 10 MG; Start 02/21/19 at 19:30 Pantoprazole (Protonix Tab) 40 mg DAILY@06 PO Last administered on 03/03/19 06:16; Admin Dose 40 MG; Start 02/22/19 at 14:30 Heparin Sodium (Porcine) (Heparin (5000 Units/1ml)) 5,000 unit BID SC Last administered on 03/03/19 09:10; Admin Dose 5,000 UNIT; Start 02/22/19 at 21:00 Epoetin Carlos-epbx (Retacrit (Esrd)) 4,000 unit TuThSa@1700 SC Last administered on 03/02/19 21:02; Admin Dose 4,000 UNIT; Start 02/23/19 at 17:00 Fluticasone Propionate (Flonase 0.05% Nasal) 1 spray DAILY NASAL Last administered on 03/01/19 15:28; Admin Dose 1 SPRAY; Start 02/23/19 at 16:30 Hydralazine HCl (Apresoline) 20 mg Q6H PRN IV ELEVATED SYSTOLIC BP Last adminis tered on 02/28/19 10:39; Admin Dose 20 MG; Start 02/28/19 at 00:30 Vancomycin HCl (Vanco Iv Per Pharmacy) VANCOMYCIN PER PHARMACY PER PROTOCOL XX ; Start 02/28/19 at 11:00 Cefepime HCl 50 ml @ 100 mls/hr DAILY IVPB Last administered on 03/03/19at 08:40; Admin Dose 100 MLS/HR; Start 02/28/19 at 11:00 Acyclovir 370 mg/ Dextrose 100 ml @ 100 mls/hr Q24H IVPB Last administered on 03/02/19at 20:58; Admin Dose 100 MLS/HR; Start 02/28/19 at 18:00 Assessment/Plan Hospital Course (Demo Recall) 1. Complete heart block/s/p normal functioning permanent pacemaker 2. Episode of reported bradycardia by nurses: Most likely secondary to PVCs. Will monitor on telemetry for any significant other and arrhythmia or pacemaker malfunction 3. Herpes zoster infection 4. Renal failure on dialysis 5. Hypertension 6. History of diabetes: Coronary good control 7. Ventricular arrhythmias and frequent PVCs 8. Acute encephalopathy and altered level of consciousness: improving now Recommendation: Patient will monitor on telemetry. Hemodialysis to be continued as per renal Antibiotic/antiviral management as per internal medicine and ID recommendations Follow-up with neurology recommendations. f/u CSF results Thank you his referral. We will continue to follow along with you YOSEPH CARCAMO MD [facility] YOSEPH CARCAMO MD Mar 03, 2019 13:36
--- NOTE | 2019-03-03 16:25 | PN ---
Date/Time of Note Date/Time of Note DATE: 03/03/19 TIME: 16:22 Assessment/Plan VTE Prophylaxis Risk score (from Ns)>0 risk: 7 SCD applied (from Ns): Yes Pharmacological prophylaxis: NA/contraindicated Pharm contraindication: low risk/ambulating Lines/Catheters IV C[facility]ter Type (from [facility] Mid Line Urinary Cath still in place: No Assessment/Plan Hospital Course # AMS likely secondary to encephalpopathy due to meds vs encephalitis ? viral likely herpes LP +15WBC and 100mono partially treated EEG slowing. now has gram pos bacterimia coagulase +bacterimia > much improved today #Headaches. resolved. 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 The patient has mild leukocytosis, resol amarjit. Currently, the patient does not have any evidence of any meningitis. Little lethargic #. Basilar opacity with pneumonia. Chest x-ray ordered # End stage renal disease, on hemodialysis. # Left lower extremity edema, anasarca. # Hypertension, normotensive now. 7. Diabetes mellitus type II, controlled blood sugar is normal. 8. Hyperlipidemia. 9. History of ovarian tumor. 10. Anemia of CD 11. Overweight 12. Hepatitis B 13. Mild scattered paranasal sinus disease with small mucoid secretion in the right sphenoid sinus, correlate for acute sinusitis. CT scan seen Assessment/Plan - dc NPO - diet as advanced - HD tmw - pending PCR VSV - iv vanco/cefepime and acylvir -ct angio negative - CW plavix - cw trradenta, - PT/OT - Continue with Epogen - Renally dose alL meds spoke to at bedside Result Diagram: 03/03/19 0436 03/03/19 0436 Results 24hrs Laboratory Tests Test 03/02/19 17:59 03/02/19 21:44 03/03/19 04:36 03/03/19 08:47 Bedside Glucose 134 169 175 White Blood Count 7.5 Red Blood Count 2.54 L Hemoglobin 8.3 L Hematocrit 25.9 L Mean Corpuscular 102.0 H Volume Mean Corpuscular 32.7 Hemoglobin Mean Corpuscular 32.0 Hemoglobin Concent Red Cell 18.7 H Distribution Width Platelet Count 339 Mean Platelet Volume 10.1 Immature 3.600 H Granulocytes % Neutrophils % 70.7 Lymphocytes % 7.6 L Monocytes % 16.8 H Eosinophils % 0.9 Basophils % 0.4 Nucleated Red Blood 4.5 H Cells % Immature 0.270 H Granulocytes # Neutrophils # 5.3 Lymphocytes # 0.6 L Monocytes # 1.3 H Eosinophils # 0.1 Basophils # 0.0 Nucleated Red Blood 0.3 H Cells # Sodium Level 139 Potassium Level 4.0 Chloride Level 101 Carbon Dioxide Level 28 Anion Gap 10 Blood Urea Nitrogen 34 #H Creatinine 5.04 #H Est Glomerular 9 L Filtrat Rate mL/min Glucose Level 171 Calcium Level 9.1 Phosphorus Level 3.0 # Magnesium Level 2.3 Subjective 24 Hr Interval Summary Free Text/Dictation pt doing much better today much more awake and responsive, answering all questions appropriately Exam/Review of Systems Exam Vitals Vital Signs Date Temp Pulse Resp B/P (MAP) Pulse Ox O2 O2 Flow FiO2 Time Delivery Rate 03/03/19 105 18 159/79 94 15:00 (105) 03/03/19 98.4 Nasal 2.0 12:00 Cannula 03/02/19 28 17:41 Intake and Output 03/02/19 03/02/19 03/03/19 1515:00 23:00 07:00 IntakeIntake Total 380 ml 155 ml 426 ml OutputOutput Total 0 ml 2500 ml BalanceBalance 380 ml -2345 ml 426 ml Exam HEENT crusted lesions on rt side of face improving, grimaces on sternal rub, awake, follow commands, talking Pupils equal and reactive to light moves all extremities no neck rigity iveth Neck: supple, no thyromegaly, no carotid bruits Lungs: clear bilaterally, decreased. CVS: regular rate and rhythm, no murmurs Abdomen: soft, bowel sounds present, no hepatosplenomegally, no masses, no rebound or guarding. Obese pacemaker rt fistula cn nerve exam limited reflexes 2 + Results Results 24hrs Laboratory Tests Test 03/02/19 17:59 03/02/19 21:44 03/03/19 04:36 03/03/19 08:47 Bedside Glucose 134 169 175 White Blood Count 7.5 Red Blood Count 2.54 L Hemoglobin 8.3 L Hematocrit 25.9 L Mean Corpuscular 102.0 H Volume Mean Corpuscular 32.7 Hemoglobin Mean Corpuscular 32.0 Hemoglobin Concent Red Cell 18.7 H Distribution Width Platelet Count 339 Mean Platelet Volume 10.1 Immature 3.600 H Granulocytes % Neutrophils % 70.7 Lymphocytes % 7.6 L Monocytes % 16.8 H Eosinophils % 0.9 Basophils % 0.4 Nucleated Red Blood 4.5 H Cells % Immature 0.270 H Granulocytes # Neutrophils # 5.3 Lymphocytes # 0.6 L Monocytes # 1.3 H Eosinophils # 0.1 Basophils # 0.0 Nucleated Red Blood 0.3 H Cells # Sodium Level 139 Potassium Level 4.0 Chloride Level 101 Carbon Dioxide Level 28 Anion Gap 10 Blood Urea Nitrogen 34 #H Creatinine 5.04 #H Est Glomerular 9 L Filtrat Rate mL/min Glucose Level 171 Calcium Level 9.1 Phosphorus Level 3.0 # Magnesium Level 2.3 Medications Medication Current Medications Calcium Acetate (Phoslo) 1,334 mg WITH MEALS PO Last administered on 03/02/19 08:53; Admin Dose 1,334 MG; Start 02/21/19 at 12:00 Clopidogrel Bisulfate (plaVIX) 75 mg DAILY PO Last administered on 03/03/19 08:40; Admin Dose 75 MG; Start 02/22/19 at 09:00 Docusate Sodium (Colace) 100 mg DAILY PO Last administered on 02/26/19 09:47; Admin Dose 100 MG; Start 02/22/19 at 09:00 Folic Acid (Folic Acid) 1 mg DAILY PO Last administered on 03/03/19 08:42; Admin Dose 1 MG; Start 02/22/19 at 09:00 Hydralazine HCl (Apresoline) 75 mg TID PO Last administered on 03/03/19 14:27; Admin Dose 75 MG; Start 02/21/19 at 13:00 Linagliptin (Tradjenta) 5 mg DAILY PO Last administered on 03/03/19 08:43; Admin Dose 5 MG; Start 02/22/19 at 09:00 Metoprolol Succinate (Toprol Xl) 50 mg DAILY PO Last administered on 02/26/19 09:51; Admin Dose 50 MG; Start 02/22/19 at 09:00 Ondansetron HCl (Zofran Odt) 4 mg Q6H PRN ODT NAUSEA AND/OR VOMITING; Start 02/21/19 at 10:00 Diagnostic Test (Pha) (Accu-Chek) 1 ea AC MEALS AND BEDTIME XX Last administered on 03/01/19 17:33; Admin Dose 1 EA; Start 02/21/19 at 11:30 Diagnostic Test (Pha) (Accu-Chek) 1 ea 02 XX ; Start 02/22/19 at 02:00 Insulin Aspart (Novolog Insulin Pen) NOVOLOG *MILD* ALGORITHM WITH MEALS BEDTIME SC Last administered on 03/02/19 12:44; Admin Dose 1 UNIT; Start 02/21/19 at 21:00 Hydralazine HCl (Apresoline) 10 mg Q6H PRN IV SBP >165 Last administered on 02/28/19 00:47; Admin Dose 10 MG; Start 02/21/19 at 19:30 Pantoprazole (Protonix Tab) 40 mg DAILY@06 PO Last administered on 03/03/19 06:16; Admin Dose 40 MG; Start 02/22/19 at 14:30 Heparin Sodium (Porcine) (Heparin (5000 Units/1ml)) 5,000 unit BID SC Last administered on 03/03/19 09:10; Admin Dose 5,000 UNIT; Start 02/22/19 at 21:00 Epoetin Carlos-epbx (Retacrit (Esrd)) 4,000 unit TuThSa@1700 SC Last administered on 03/02/19 21:02; Admin Dose 4,000 UNIT; Start 02/23/19 at 17:00 Fluticasone Propionate (Flonase 0.05% Nasal) 1 spray DAILY NASAL Last administered on 03/01/19 15:28; Admin Dose 1 SPRAY; Start 02/23/19 at 16:30 Hydralazine HCl (Apresoline) 20 mg Q6H PRN IV ELEVATED SYSTOLIC BP Last administered on 02/28/19 10:39; Admin Dose 20 MG; Start 02/28/19 at 00:30 Vancomycin HCl (Vanco Iv Per Pharmacy) VANCOMYCIN PER PHARMACY PER PROTOCOL XX ; Start 02/28/19 at 11:00 Cefepime HCl 50 ml @ 100 mls/hr DAILY IVPB Last administered on 03/03/19 08:40; Admin Dose 100 MLS/HR; Start 02/28/19 at 11:00 Acyclovir 370 mg/ Dextrose 100 ml @ 100 mls/hr Q24H IVPB Last administered on 7/27/19at 20:58; Admin Dose 100 MLS/HR; Start 02/28/19 at 18:00 ELIANA NEELY MD Mar 03, 2019 16:25
[2019-03-03] MEDS: DEXTROSE 5% IVPB SCH (16:51)
[2019-03-03] MEDS: ACYCLOVIR IVPB SCH (16:51)
--- NOTE | 2019-03-03 18:47 | PN ---
DATE: 03/03/2019 SUBJECTIVE: The patient is doing better today. She is awake, alert, follows commands, and in no dis tress. Family at bedside. No fevers overnight. LABORATORY DATA: WBC 7.5, platelets 339, neutrophils 70.7. INDWELLINGS: The patient has AV fistula. ANTIMICROBIALS: She is on: 1. IV acyclovir 2. Cefepime. 3. Vancomycin. PHYSICAL EXAMINATION: GENERAL: Well-developed, well-nourished, chronically ill-appearing, elderly woman who is in no distr ess. The patient is awake. HEENT: Head atraumatic, normocephalic. NECK: Supple. CHEST: Rise symmetrical. Breath sounds clear, diminished at the bases. HEART: S1, S2. ABDOMEN: Soft, bowel sounds present. ASSESSMENT: 1. Status post acute encephalopathy, likely secondary to encephalitis due to medications versus rece nt herpes zoster infection. 2. End-stage renal disease, hemodialysis dependent. 3. Diabetes. 4. Coagulase-negative staphylococcal bacteremia, possible contaminant. 5. Aseptic meningitis. PLAN: The patient is doing much better. Still awaiting for CSF for HSV PCR. Continue on current an timicrobials and follow neurology recommendations. Continue aspiration precautions. Dictated By: ADEOLA BRYAN MARINE ELECTRICIAN APPRENTICE for LIDA DUONG/VAL Conf#: [id number] DID#: [id number]
[2019-03-04] VITALS (38 sets, daily range): BP systolic 124–184; BP diastolic 58–128; PULSE 83–99; RESP 12–30
[2019-03-04] MEDS: ACCU-CHEK XX SCH ×5 (01:08→21:57)
[2019-03-04] MEDS: hydrALAzine 20 MG INJ IV PRN ×3 (02:14→18:12)
[2019-03-04] MEDS: PANTOPRAZOLE (EC) 40 MG TAB PO SCH (05:06)
[2019-03-04] MEDS: INSULIN ASPART [NOVOLOG] 3 ML PEN SC SCH ×4 (07:35→21:00)
[2019-03-04] MEDS: CALCIUM ACETATE 667 MG CAP PO SCH ×3 (08:04→18:57)
[2019-03-04] MEDS: CEFEPIME 1GM/50 ML (PMX) 50 ML IVPB SCH (08:13)
[2019-03-04] MEDS: FOLIC ACID 1 MG TAB PO SCH (08:13)
[2019-03-04] MEDS: CLOPIDOGREL 75 MG TAB PO SCH (08:14)
[2019-03-04] MEDS: DOCUSATE SODIUM 100 MG CAP PO SCH (08:14)
[2019-03-04] MEDS: LINAGLIPTIN 5 MG TABLET PO SCH (08:15)
[2019-03-04] MEDS: METOPROLOL (XL) 50 MG TAB PO SCH (08:16)
[2019-03-04] MEDS: FLUTICASONE 0.05% 16 GM NAS SPRAY NASAL SCH (08:43)
[2019-03-04] MEDS: HEPARIN 5,000 UNIT/1 ML VIAL SC SCH ×2 (09:10→21:54)
--- NOTE | 2019-03-04 09:19 | RADRPT ---
Vent Rate: 66 bpm RR Interval: 906 msec AL Interval: [id number] msec QRS Duration: 165 msec QT Interval: 685 msec QTC Interval: 720 msec P-R-T [place]: [id number] - -72 - 93 degrees Afib/flutter and ventricular-paced rhythm...V-paced rhythm, A-rate>240 Electronically Signed By: Fab Reyes
--- NOTE | 2019-03-04 09:22 | RADRPT ---
Vent Rate: 60 bpm RR Interval: 1007 msec NM Interval: [id number] msec QRS Duration: 156 msec QT Interval: 684 msec QTC Interval: 682 msec P-R-T [place]: [id number] - -81 - 113 degrees Afib/flutter and ventricular-paced rhythm...V-paced rhythm, A-rate>240 Electronically Signed By: Fab Reyes
--- NOTE | 2019-03-04 09:55 | CONS ---
Consultation Date/Type/Reason Admit Date/Time Feb 21, 2019 at 03:02 Initial Consult Date 02/28/19 Type of Consult Pulmonary/critical care Pulmonary critical care consult requested for evaluation of altered mental status. Consultation is specifically to evaluate for possible intubation. Patient is a 68-year-old lady who was admitted to the hospital with complaints of not feeling well. Patient has been diagnosed with right periorbital herpes zoster infection. Patient has been on acyclovir. Over the last 12 hours the p atient mental status has worsened to the point where the patient always essentially unresponsive. Patient has been transferred to ICU for closer observation. By the time I saw the patient, patient is noncommunicative and unresponsive but did not appear to be in any distress. Past medical history; 1. Chronic renal failure, dialysis dependent. 2. History of pacemaker placement. 3. History of CHF, hypertension and episodes of pneumonia. 4. History of ovarian tumor. 5. History of diabetes. 6. Chronic anemia. Medications; reviewed. Allergies; none. Social history; patient is a non-smoker. Family history; noncontributory. Patient does have a supportive family. Occupational history; patient is a housewife. Review of system; unable to be obtained. General exam; elderly woman, noncommunicative and unresponsive. Currently in no distress. Requesting Provider: ELIANA NEELY MD Date/Time of Note DATE: 03/04/19 TIME: 09:53 24 HR Interval Summary Free Text/Dictation Patient's condition is markedly improved. Remains awake and alert. General exam; elderly woman, currently no distress. H ENT exam; supple neck, no JVD. No lymphadenopathy. Midline trachea. No thyromegaly. No neck masses. Pupils are midsize. Right periorbital vesicular rash is improving. Chest exam; clear to auscultation. S1-S2 audible, no murmurs. Regular rhythm. Abdomen exam; soft, nontender. No organomegaly. Bowel sounds audible. Extremity exam; no peripheral edema clubbing. TECHNICAL WRITING LEAD/MGR exam; no focal deficit. Assessment and recommendations; 1. Patient with history of recently diagnosed periorbital herpes zoster infection admitted for altered mental status possibly due to acute encephalitis with marked overall interval improvement. 2. Chronic renal failure, dialysis dependent. 3. History of hypertension. 4. Anemia of chronic disease. Continue current supportive care. Consider transfer to medical floor. Hemodialysis per cloud infrastructure architect. Exam/Review of Systems Exam Vitals Vital Signs Date Temp Pulse Resp B/P (MAP) Pulse Ox O2 O2 Flow FiO2 Time Delivery Rate 03/04/19 87 08:00 03/04/19 30 161/61 97 Room Air 07:00 (94) 03/04/19 98.5 04:00 03/03/19 2.0 20:08 03/02/19 28 17:41 Intake and Output 03/03/19 03/03/19 03/04/19 1515:00 23:00 07:00 IntakeIntake Total 100 ml 250 ml 0 ml OutputOutput Total 0 ml 0 ml BalanceBalance 100 ml 250 ml 0 ml Results Result Diagram: 03/04/19 0452 03/04/19 0452 Results 24hrs Laboratory Tests Test 03/03/19 16:56 03/03/19 21:21 03/04/19 04:52 03/04/19 08:01 Bedside Glucose 123 126 138 White Blood Count 6.2 Red Blood Count 2.94 L Hemoglobin 9.7 L Hematocrit 30.8 L Mean Corpuscular 104.8 H Volume Mean Corpuscular 33.0 Hemoglobin Mean Corpuscular 31.5 L Hemoglobin Concent Red Cell 20.2 H Distribution Width Platelet Count 334 Mean Platelet Volume 9.9 Immature 2.800 H Granulocytes % Neutrophils % 66.7 Lymphocytes % 9.1 L Monocytes % 19.1 H Eosinophils % 1.5 Basophils % 0.8 Nucleated Red Blood 3.9 H Cells % Immature 0.170 H Granulocytes # Neutrophils # 4.1 Lymphocytes # 0.6 L Monocytes # 1.2 H Eosinophils # 0.1 Basophils # 0.1 Nucleated Red Blood 0.2 H Cells # Sodium Level 140 Potassium Level 4.7 Chloride Level 104 Carbon Dioxide Level 22 Anion Gap 14 H Blood Urea Nitrogen 54 H Creatinine 6.71 H Est Glomerular 6 L Filtrat Rate mL/min Glucose Level 124 # Calcium Level 9.7 Medications Medication Current Medications Calcium Acetate (Phoslo) 1,334 mg WITH MEALS PO Last administered on 03/04/19at 08:04; Admin Dose 1,334 MG; Start 02/21/19 at 12:00 Clopidogrel Bisulfate (plaVIX) 75 mg DAILY PO Last administered on 03/04/19at 08:14; Admin Dose 75 MG; Start 02/22/19 at 09:00 Docusate Sodium (Colace) 100 mg DAILY PO Last administered on 03/04/19 08:14; Admin Dose 100 MG; Start 02/22/19 at 09:00 Folic Acid (Folic Acid) 1 mg DAILY PO Last administered on 03/04/19 08:13; Admin Dose 1 MG; Start 02/22/19 at 09:00 Hydralazine HCl (Apresoline) 75 mg TID PO Last administered on 03/04/19 08:15; Admin Dose 75 MG; Start 02/21/19 at 13:00 Linagliptin (Tradjenta) 5 mg DAILY PO Last administered on 03/04/19 08:15; Admin Dose 5 MG; Start 02/22/19 at 09:00 Metoprolol Succinate (Toprol Xl) 50 mg DAILY PO Last administered on 03/04/19 08:16; Admin Dose 50 MG; Start 02/22/19 at 09:00 Ondansetron HCl (Zofran Odt) 4 mg Q6H PRN ODT NAUSEA AND/OR VOMITING; Start 02/21/19 at 10:00 Diagnostic Test (Pha) (Accu-Chek) 1 ea AC MEALS AND BEDTIME XX Last administered on 03/03/19 21:29; Admin Dose 1 EA; Start 02/21/19 at 11:30 Diagnostic Test (Pha) (Accu-Chek) 1 ea 02 XX ; Start 02/22/19 at 02:00 Insulin Aspart (Novolog Insulin Pen) NOVOLOG *MILD* ALGORITHM WITH MEALS BEDTIME SC Last administered on 03/02/19 12:44; Admin Dose 1 UNIT; Start 02/21/19 at 21:00 Hydralazine HCl (Apresoline) 10 mg Q6H PRN IV SBP >165 Last administered on 03/04/19 02:14; Admin Dose 10 MG; Start 02/21/19 at 19:30 Pantoprazole (Protonix Tab) 40 mg DAILY@06 PO Last administered on 03/04/19 05:06; Admin Dose 40 MG; Start 02/22/19 at 14:30 Heparin Sodium (Porcine) (Heparin (5000 Units/1ml)) 5,000 unit BID SC Last administered on 03/04/19 09:10; Admin Dose 5,000 UNIT; Start 02/22/19 at 21:00 Epoetin Carlos-epbx (Retacrit (Esrd)) 4,000 unit TuThSa@1700 SC Last administered on 03/02/19at 21:02; Admin Dose 4,000 UNIT; Start 02/23/19 at 17:00 Fluticasone Propionate (Flonase 0.05% Nasal) 1 spray DAILY NASAL Last administered on 03/04/19 08:43; Admin Dose 1 SPRAY; Start 02/23/19 at 16:30 Hydralazine HCl (Apresoline) 20 mg Q6H PRN IV ELEVATED SYSTOLIC BP Last administered on 03/04/19 05:06; Admin Dose 20 MG; Start 02/28/19 at 00:30 Vancomycin HCl (Vanco Iv Per Pharmacy) VANCOMYCIN PER PHARMACY PER PROTOCOL XX ; Start 02/28/19 at 11:00 Cefepime HCl 50 ml @ 100 mls/hr DAILY IVPB Last administered on 03/04/19at 08:13; Admin Dose 100 MLS/HR; Start 02/28/19 at 11:00 Acyclovir 370 mg/ Dextrose 100 ml @ 100 mls/hr Q24H IVPB Last administered on 03/03/19at 16:51; Admin Dose 100 MLS/HR; Start 02/28/19 at 18:00 JAJA THOMPSON Mar 04, 2019 09:55
--- NOTE | 2019-03-04 10:30 | PN ---
Date/Time of Note Date/Time of Note DATE: 03/04/19 TIME: 10:26 Assessment/Plan VTE Prophylaxis Risk score (from Nsg)>0 risk: 4 SCD applied (from Ns): Yes Pharmacological prophylaxis: NA/contraindicated Pharm contraindication: low risk/ambulating Lines/Catheters IV Catheter Type (from Nrsg): Mid Line Urinary Cath still in place: No Assessment/Plan Hospital Course # AMS likely secondary to encephalpopathy due to meds vs encephalitis ? viral likely herpes LP +15WBC and 100mono partially treated EEG slowing. now has gram pos bacterimia coagulase +bacterimia > ams resolved #Headaches. resolved. 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 The patient has mild leukocytosis, resolved. Currently, the patient does not have any evidence of any meningitis. Little lethargic #. Basilar opacity with pneumonia. Chest x-ray ordered # End stage renal disease, on hemodialysis. # Left lower extremity edema, anasarca. # Hypertension, normotensive now. 7. Diabetes mellitus type II, controlled blood sugar is normal. 8. Hyperlipidemia. 9. History of ovarian tumor. 10. Anemia of CD 11. Overweight 12. Hepatitis B 13. Mild scattered paranasal sinus disease with small mucoid secretion in the right sphenoid sinus, correlate for acute sinusitis. CT scan seen 14 rt arm edema r/o DVT/ fistula in place Assessment/Plan - HD today - pending PCR VSV - iv vanco/cefepime and acylvir -ct angio negative - CW plavix -c w MTP/hydralazine - cw trradenta, - right arm US and arterial doppler - PT/OT - Continue with Epogen - Renally dose all meds spoke to at bedside Result Diagram: 03/04/19 0452 03/04/19 0452 Results 24hrs Laboratory Tests Test 03/03/19 16:56 03/03/19 21:21 03/04/19 04:52 03/04/19 08:01 Bedside Glucose 123 126 138 White Blood Count 6.2 Red Blood Count 2.94 L Hemoglobin 9.7 L Hematocrit 30.8 L Mean Corpuscular 104.8 H Volume Mean Corpuscular 33.0 Hemoglobin Mean Corpuscular 31.5 L Hemoglobin Concent Red Cell 20.2 H Distribution Width Platelet Count 334 Mean Platelet Volume 9.9 Immature 2.800 H Granulocytes % Neutrophils % 66.7 Lymphocytes % 9.1 L Monocytes % 19.1 H Eosinophils % 1.5 Basophils % 0.8 Nucleated Red Blood 3.9 H Cells % Immature 0.170 H Granulocytes # Neutrophils # 4.1 Lymphocytes # 0.6 L Monocytes # 1.2 H Eosinophils # 0.1 Basophils # 0.1 Nucleated Red Blood 0.2 H Cells # Sodium Level 140 Potassium Level 4.7 Chloride Level 104 Carbon Dioxide Level 22 Anion Gap 14 H Blood Urea Nitrogen 54 H Creatinine 6.71 H Est Glomerular 6 L Filtrat Rate mL/min Glucose Level 124 # Calcium Level 9.7 Subjective 24 Hr Interval Summary Free Text/Dictation pt awake,alert and oriented and answered all questiosn appropriately tolerted diet Exam/Review of Systems Exam Vitals Vital Signs Date Temp Pulse Resp B/P (MAP) Pulse Ox O2 O2 Flow FiO2 Time Delivery Rate 03/04/19 93 14 143/64 96 Room Air 09:30 (90) 03/04/19 98.9 07:00 03/03/19 2.0 20:08 03/02/19 28 17:41 Intake and Output 03/03/19 03/03/19 03/04/19 1515:00 23:00 07:00 IntakeIntake Total 100 ml 250 ml 0 ml OutputOutput Total 0 ml 0 ml BalanceBalance 100 ml 250 ml 0 ml Exam HEENT crusted lesions on rt side of face improved, awake,alert and oriented, follow all commands Pupils equal and reactive to light Neck: supple, no thyromegaly, no carotid bruits Lungs: clear bilaterally, decreased. CVS: regular rate and rhythm, no murmurs Abdomen: soft, bowel sounds present, no hepatosplenomegally, no masses, no rebound or guarding. Obese pacemaker rt fistula neuro exam non focal Results Results 24hrs Laboratory Tests Test 03/03/19 16:56 03/03/19 21:21 03/04/19 04:52 03/04/19 08:01 Bedside Glucose 123 126 138 White Blood Count 6.2 Red Blood Count 2.94 L Hemoglobin 9.7 L Hematocrit 30.8 L Mean Corpuscular 104.8 H Volume Mean Corpuscular 33.0 Hemoglobin Mean Corpuscular 31.5 L Hemoglobin Concent Red Cell 20.2 H Distribution Width Platelet Count 334 Mean Platelet Volume 9.9 Immature 2.800 H Granulocytes % Neutrophils % 66.7 Lymphocytes % 9.1 L Monocytes % 19.1 H Eosinophils % 1.5 Basophils % 0.8 Nucleated Red Blood 3.9 H Cells % Immature 0.170 H Granulocytes # Neutrophils # 4.1 Lymphocytes # 0.6 L Monocytes # 1.2 H Eosinophils # 0.1 Basophils # 0.1 Nucleated Red Blood 0.2 H Cells # Sodium Level 140 Potassium Level 4.7 Chloride Level 104 Carbon Dioxide Level 22 Anion Gap 14 H Blood Urea Nitrogen 54 H Creatinine 6.71 H Est Glomerular 6 L Filtrat Rate mL/min Glucose Level 124 # Calcium Level 9.7 Medications Medication Current Medications Calcium Acetate (Phoslo) 1,334 mg WITH MEALS PO Last administered on 03/04/19 08:04; Admin Dose 1,334 MG; Start 02/21/19 at 12:00 Clopidogrel Bisulfate (plaVIX) 75 mg DAILY PO Last administered on 03/04/19 08:14; Admin Dose 75 MG; Start 02/22/19 at 09:00 Docusate Sodium (Colace) 100 mg DAILY PO Last administered on 03/04/19 08:14; Admin Dose 100 MG; Start 02/22/19 at 09:00 Folic Acid (Folic Acid) 1 mg DAILY PO Last administered on 03/04/19 08:13; Admin Dose 1 MG; Start 02/22/19 at 09:00 Hydralazine HCl (Apresoline) 75 mg TID PO Last administered on 03/04/19 08:15; Admin Dose 75 MG; Start 02/21/19 at 13:00 Linagliptin (Tradjenta) 5 mg DAILY PO Last administered on 03/04/19 08:15; Admin Dose 5 MG; Start 02/22/19 at 09:00 Metoprolol Succinate (Toprol Xl) 50 mg DAILY PO Last administered on 03/04/19 08:16; Admin Dose 50 MG; Start 02/22/19 at 09:00 Ondansetron HCl (Zofran Odt) 4 mg Q6H PRN ODT NAUSEA AND/OR VOMITING; Start 02/21/19 at 10:00 Diagnostic Test (Pha) (Accu-Chek) 1 ea AC MEALS AND BEDTIME XX Last administered on 7/28/19at 21:29; Admin Dose 1 EA; Start 02/21/19 at 11:30 Diagnostic Test (Pha) (Accu-Chek) 1 ea 02 XX ; Start 02/22/19 at 02:00 Insulin Aspart (Novolog Insulin Pen) NOVOLOG *MILD* ALGORITHM WITH MEALS BEDTIME SC Last administered on 03/02/19 12:44; Admin Dose 1 UNIT; Start 02/21/19 at 21:00 Hydralazine HCl (Apresoline) 10 mg Q6H PRN IV SBP >165 Last administered on 03/04/19 02:14; Admin Dose 10 MG; Start 02/21/19 at 19:30 Pantoprazole (Protonix Tab) 40 mg DAILY@06 PO Last administered on 03/04/19 05:06; Admin Dose 40 MG; Start 02/22/19 at 14:30 Heparin Sodium (Porcine) (Heparin (5000 Units/1ml)) 5,000 unit BID SC Last administered on 03/04/19 09:10; Admin Dose 5,000 UNIT; Start 02/22/19 at 21:00 Epoetin Carlos-epbx (Retacrit (Esrd)) 4,000 unit TuThSa@1700 SC Last administered on 03/02/19 21:02; Admin Dose 4,000 UNIT; Start 02/23/19 at 17:00 Fluticasone Propionate (Flonase 0.05% Nasal) 1 spray DAILY NASAL Last administered on 03/04/19 08:43; Admin Dose 1 SPRAY; Start 02/23/19 at 16:30 Hydralazine HCl (Apresoline) 20 mg Q6H PRN IV ELEVATED SYSTOLIC BP Last administered on 03/04/19 05:06; Admin Dose 20 MG; Start 02/28/19 at 00:30 Vancomycin HCl (Vanco Iv Per Pharmacy) VANCOMYCIN PER PHARMACY PER PROTOCOL XX ; Start 02/28/19 at 11:00 Cefepime HCl 50 ml @ 100 mls/hr DAILY IVPB Last administered on 03/04/19 08:13; Admin Dose 100 MLS/HR; Start 02/28/19 at 11:00 Acyclovir 370 mg/ Dextrose 100 ml @ 100 mls/hr Q24H IVPB Last administered on 03/03/19 16:51; Admin Dose 100 MLS/HR; Start 02/28/19 at 18:00 ELIANA NEELY MD Mar 04, 2019 10:29
--- NOTE | 2019-03-04 14:23 | CONS ---
Consult Date/Type/Reason Admit Date/Time Feb 21, 2019 at 03:02 Initial Consult Date 02/25/19 Type of Consultation: cv Requesting Provider: ELIANA NEELY MD Date/Time of Note DATE: 03/04/19 TIME: 14:22 Subjective Interventional cardiology follow-up progress note Subjective: Case discussed with the staff and Telemetry was reviewed. Patient has remained sinus rhythm with ventricular paced. with occasional PVCs d/w family/ Patient is less lethargic and responsive today Patient is still being monitored in ICU Objective: General: no acute distress HEENT: NC/AT. pupils are equal. round. NECK: NO JVD. no stridor. CV: RRR. systolic murmur; no gallop or rubs. PULM: no wheezing or rhonchi. GI: SOFT, NT, ND, no rebound or guarding Extremity: trace B/L LE edema. no clubbing. neuro: awake and Ox 2 Psych: calm and pleasant rectal: deferred Derm: Right upper forehead with crusted lesions EKG showed ventricular paced rhythm Head CT done February 27, 2019 shows: 1. Mild generalized cerebral and cerebellar volume loss and nonspecific chronic microvascular ischemic disease. 2. No evidence of intracranial masses hemorrhages or midline shift. 3. Right periorbital soft tissue swelling. No calvarial fractures. Objective Vitals Vital Signs Date Temp Pulse Resp B/P (MAP) Pulse Ox O2 O2 Flow FiO2 Time Delivery Rate 03/04/19 90 14 166/72 96 Room Air 13:00 (103) 03/04/19 98.3 11:30 03/03/19 2.0 20:08 03/02/19 28 17:41 Intake and Output 03/03/19 03/03/19 03/04/19 1515:00 23:00 07:00 IntakeIntake Total 100 ml 250 ml 0 ml OutputOutput Total 0 ml 0 ml BalanceBalance 100 ml 250 ml 0 ml Results/Medications Result Diagram: 03/04/19 0452 03/04/19 0452 Results 24 hrs Laboratory Tests Test 03/03/19 16:56 03/03/19 21:21 03/04/19 04:52 03/04/19 08:01 Bedside Glucose 123 126 138 White Blood Count 6.2 Red Blood Count 2.94 L Hemoglobin 9.7 L Hematocrit 30.8 L Mean Corpuscular 104.8 H Volume Mean Corpuscular 33.0 Hemoglobin Mean Corpuscular 31.5 L Hemoglobin Concent Red Cell 20.2 H Distribution Width Platelet Count 334 Mean Platelet 9.9 Volume Immature 2.800 H Granulocytes % Neutrophils % 66.7 Lymphocytes % 9.1 L Monocytes % 19.1 H Eosinophils % 1.5 Basophils % 0.8 Nucleated Red 3.9 H Blood Cells % Immature 0.170 H Granulocytes # Neutrophils # 4.1 Lymphocytes # 0.6 L Monocytes # 1.2 H Eosinophils # 0.1 Basophils # 0.1 Nucleated Red 0.2 H Blood Cells # Sodium Level 140 Potassium Level 4.7 Chloride Level 104 Carbon Dioxide 22 Level Anion Gap 14 H Blood Urea 54 H Nitrogen Creatinine 6.71 H Est Glomerular 6 L Filtrat Rate mL/min Glucose Level 124 # Calcium Level 9.7 Test 03/04/19 11:34 03/04/19 12:22 Bedside Glucose 143 Lab Scanned Report REFERENCE LAB Home Meds Active Scripts Hydrocodone/Acetaminophen ([place] 5-325 Tablet) 1 Each Tablet, 1 TAB PO TID PRN for PAIN, #12 TAB Prov:CHIQUITA JAVED MD 02/04/19 Ondansetron (Ondansetron Odt) 4 Mg Tab.rapdis, 4 MG PO Q6H PRN for NAUSEA AND/OR VOMITING, #10 TAB Prov:MK DUGGAN MD 01/28/19 Loperamide Hcl* (Imodium*) 2 Mg Capsule, 2 MG PO .AFTER EA LOOSE BM PRN for DIARRHEA, #20 TAB Prov:MK DUGGAN MD 01/28/19 Ondansetron (Ondansetron Odt) 4 Mg Tab.rapdis, 4 MG PO Q6H PRN for NAUSEA AND/OR VOMITING, #10 TAB Prov:TON ALMEIDA PA-C 01/16/19 Reported Medications Multivit/Ca Carb/B Cmplx/Fa* (Shanti-Horacio*) 1 Tab Tab, 1 TAB PO DAILY for 30 Days, #30 02/21/19 Clopidogrel Bisulfate (Clopidogrel) 75 Mg Tablet, 75 MG PO DAILY for 60 Days, #60 TAB 02/21/19 Gabapentin* (Gabapentin*) 100 Mg Capsule, 100 MG PO BID for 30 Days, #60 02/21/19 Diphenhydramine Hcl (BANOPHEN) 50 Mg Capsule, 50 MG PO DAILY PRN for ALLERGIC REACTION 02/21/19 valAcyclovir Hcl* (valACYclovir Hcl*) 500 Mg Tablet, 1000 MG PO TID, TAB 02/21/19 Hydralazine Hcl* (Hydralazine Hcl*) 25 Mg Tab, 75 MG PO TID, #90 TAB 10/12/18 Linagliptin (TRADJENTA) 5 Mg Tablet, 5 MG PO DAILY, TAB 10/12/18 Metoprolol Succinate* (Toprol XL*) 50 Mg Tab.er.24h, 50 MG PO DAILY, #30 TAB 10/12/18 Calcium Acetate* (Calcium Acetate*) 667 Mg Capsule, 1334 MG PO WITH MEALS, #60 CAP 10/12/18 Folic Acid* (Folic Acid*) 1 Mg Tablet, 1 MG PO DAILY, TAB 10/12/18 Docusate Sodium* (Colace*) 100 Mg Capsule, 100 MG PO DAILY, #30 CAP 10/12/18 Pantoprazole* (Protonix*) 40 Mg Tablet.dr, 40 MG PO DAILY, TAB 10/04/18 Cholecalciferol* (Vitamin D*) 400 Unit Tablet, 400 UNIT PO BID, TAB 10/04/18 Medications Current Medications Calcium Acetate (Phoslo) 1,334 mg WITH MEALS PO Last administered on 03/04/19at 11:35; Admin Dose 1,334 MG; Start 02/21/19 at 12:00 Clopidogrel Bisulfate (plaVIX) 75 mg DAILY PO Last administered on 03/04/19at 08:14; Admin Dose 75 MG; Start 02/22/19 at 09:00 Docusate Sodium (Colace) 100 mg DAILY PO Last administered on 03/04/19at 08:14; Admin Dose 100 MG; Start 02/22/19 at 09:00 Folic Acid (Folic Acid) 1 mg DAILY PO Last administered on 03/04/19 08:13; Admin Dose 1 MG; Start 02/22/19 at 09:00 Hydralazine HCl (Apresoline) 75 mg TID PO Last administered on 03/04/19at 08:15; Admin Dose 75 MG; Start 02/21/19 at 13:00 Linagliptin (Tradjenta) 5 mg DAILY PO Last administered on 03/04/19 08:15; Admin Dose 5 MG; Start 02/22/19 at 09:00 Metoprolol Succinate (Toprol Xl) 50 mg DAILY PO Last administered on 03/04/19 08:16; Admin Dose 50 MG; Start 02/22/19 at 09:00 Ondansetron HCl (Zofran Odt) 4 mg Q6H PRN ODT NAUSEA AND/OR VOMITING; Start 02/21/19 at 10:00 Diagnostic Test (Pha) (Accu-Chek) 1 ea AC MEALS AND BEDTIME XX Last administered on 03/04/19 11:35; Admin Dose 1 EA; Start 02/21/19 at 11:30 Diagnostic Test (Pha) (Accu-Chek) 1 ea 02 XX ; Start 02/22/19 at 02:00 Insulin Aspart (Novolog Insulin Pen) NOVOLOG *MILD* ALGORITHM WITH MEALS BEDTIME SC Last administered on 03/04/19 11:45; Admin Dose 1 UNIT; Start 02/21/19 at 21:00 Hydralazine HCl (Apresoline) 10 mg Q6H PRN IV SBP >165 Last administered on 03/04/19 02:14; Admin Dose 10 MG; Start 02/21/19 at 19:30 Pantoprazole (Protonix Tab) 40 mg DAILY@06 PO Last administered on 03/04/19 05:06; Admin Dose 40 MG; Start 02/22/19 at 14:30 Heparin Sodium (Porcine) (Heparin (5000 Units/1ml)) 5,000 unit BID SC Last administered on 03/04/19 09:10; Admin Dose 5,000 UNIT; Start 02/22/19 at 21:00 Epoetin Carlos-epbx (Retacrit (Esrd)) 4,000 unit TuThSa@1700 SC Last administered on 03/02/19 21:02; Admin Dose 4,000 UNIT; Start 02/23/19 at 17:00 Fluticasone Propionate (Flonase 0.05% Nasal) 1 spray DAILY NASAL Last administered on 03/04/19 08:43; Admin Dose 1 SPRAY; Start 02/23/19 at 16:30 Hydralazine HCl (Apresoline) 20 mg Q6H PRN IV ELEVATED SYSTOLIC BP Last administered on 03/04/19 05:06; Admin Dose 20 MG; Start 02/28/19 at 00:30 Vancomycin HCl (Vanco Iv Per Pharmacy) VANCOMYCIN PER PHARMACY PER PROTOCOL XX ; Start 02/28/19 at 11:00 Cefepime HCl 50 ml @ 100 mls/hr DAILY IVPB Last administered on 03/04/19at 08:13; Admin Dose 100 MLS/HR; Start 02/28/19 at 11:00 Acyclovir 370 mg/ Dextrose 100 ml @ 100 mls/hr Q24H IVPB Last administered on 03/03/19at 16:51; Admin Dose 100 MLS/HR; Start 02/28/19 at 18:00 Assessment/Plan Hospital Course (Demo Recall) 1. Complete heart block/s/p normal functioning permanent pacemaker 2. Episode of reported bradycardia by nurses: Most likely secondary to PVCs. Will monitor on telemetry for any significant other and arrhythmia or pacemaker malfunction 3. Herpes zoster infection 4. Renal failure on dialysis 5. Hypertension 6. History of diabetes: Coronary good control 7. Ventricular arrhythmias and frequent PVCs 8. Acute encephalopathy and altered level of consciousness: improving now Recommendation: Patient will monitor on telemetry. Hemodialysis to be continued as per renal Antibiotic/antiviral management as per internal medicine and ID recommendations Follow-up with neurology recommendations. f/u CSF results getting transferred out of ICU Thank you his referral. We will continue to follow along with you YOSEPH CARCAMO MD [facility] YOSEPH CARCAMO MD Mar 04, 2019 14:23
[2019-03-04] MEDS: DEXTROSE 5% IVPB SCH (18:53)
[2019-03-04] MEDS: ACYCLOVIR IVPB SCH (18:53)
--- NOTE | 2019-03-04 21:52 | PN ---
DATE: 03/04/2019 SUBJECTIVE: The patient is alert, feels good, looks comfortable. Denies pain, no fevers overnight. PHYSICAL EXAMINATION: GENERAL: This is an obese, chronically ill-appearing, elderly woman who is awake, in no distress. HEENT: Head traumatic, normocephalic. NECK: Supple. CHEST: Rise symmetrical. Breath sounds clear. HEART: S1, S2. ABDOMEN: Soft, bowel sounds present. EXTREMITIES: Without cyanosis. ASSESSMENT: 1. Status post acute encephalopathy. 2. Aseptic meningitis. 3. Coag-negative staphylococcus bacteremia, consistent with contaminant. 4. History of shingles. 5. End-stage renal disease. 6. Diabetes. 7. Hypertension. PLAN: The patient remains stable and doing much better. She is on acyclovir, vancomycin and cefepim e. We are going to keep her on acyclovir and discontinue antibiotics. Await for final workup. Dictated By: ADEOLA BRYAN FUR SEWER for LIDA DUONG/VAL Conf#: [id number] DID#: [id number]
[2019-03-05 00:12] VITALS: BP 139/65; PULSE 93; RESP 18
[2019-03-05] MEDS: ACCU-CHEK XX SCH ×5 (02:00→21:14)
[2019-03-05 04:42] VITALS: BP 118/56; PULSE 91; RESP 18
[2019-03-05] MEDS: PANTOPRAZOLE (EC) 40 MG TAB PO SCH (06:11)
[2019-03-05 07:21] VITALS: BP 129/59; PULSE 89; RESP 18
[2019-03-05] MEDS: INSULIN ASPART [NOVOLOG] 3 ML PEN SC SCH ×4 (08:00→20:42)
[2019-03-05] MEDS: CALCIUM ACETATE 667 MG CAP PO SCH ×3 (08:42→17:24)
[2019-03-05] MEDS: FOLIC ACID 1 MG TAB PO SCH (08:43)
[2019-03-05] MEDS: METOPROLOL (XL) 50 MG TAB PO SCH (08:43)
[2019-03-05] MEDS: CLOPIDOGREL 75 MG TAB PO SCH (08:43)
[2019-03-05] MEDS: LINAGLIPTIN 5 MG TABLET PO SCH (08:43)
[2019-03-05] MEDS: DOCUSATE SODIUM 100 MG CAP PO SCH (08:43)
[2019-03-05] MEDS: FLUTICASONE 0.05% 16 GM NAS SPRAY NASAL SCH (08:44)
[2019-03-05] MEDS: HEPARIN 5,000 UNIT/1 ML VIAL SC SCH ×2 (09:00→21:13)
--- NOTE | 2019-03-05 10:43 | CONS ---
Consult Date/Type/Reason Admit Date/Time Feb 21, 2019 at 03:02 Initial Consult Date 02/25/19 Type of Consultation: cv Requesting Provider: ELIANA NEELY MD Date/Time of Note DATE: 03/05/19 TIME: 10:40 Subjective Interventional cardiology follow-up progress note Subjective: Case discussed with the staff and Telemetry was reviewed. Patient has remained sinus rhythm with ventricular paced. with occasional PVCs d/w family/ Patient is less lethargic she is out of ICU on tele now Objective: General: no acute distress HEENT: NC/AT. pupils are equal. round. NECK: NO JVD. no stridor. CV: RRR. systolic murmur; no gallop or rubs. PULM: no wheezing or rhonchi. GI: SOFT, NT, ND, no rebound or guarding Extremity: trace B/L LE edema. no clubbing. neuro: awake and alert Psych: calm and pleasant rectal: deferred Derm: Right upper forehead with crusted lesions ,but is improving EKG showed ventricular paced rhythm Head CT done February 27, 2019 shows: 1. Mild generalized cerebral and cerebellar volume loss and nonspecific chronic microvascular ischemic disease. 2. No evidence of intracranial masses hemorrhages or midline shift. 3. Right periorbital soft tissue swelling. No calvarial fractures. Objective Vitals Vital Signs Date Temp Pulse Resp B/P (MAP) Pulse Ox O2 O2 Flow FiO2 Time Delivery Rate 03/05/19 97.9 89 18 129/59 91 07:21 (82) 03/04/19 Room Air 18:00 03/03/19 2.0 20:08 03/02/19 28 17:41 Intake and Output 03/04/19 03/04/19 03/05/19 1515:00 23:00 07:00 IntakeIntake Total 150 ml OutputOutput Total 3500 ml BalanceBalance -3500 ml 150 ml Results/Medications Result Diagram: 03/05/19 0525 03/05/19 0525 Results 24 hrs Laboratory Tests Test 03/04/19 11:34 03/04/19 12:22 03/04/19 16:45 03/04/19 21:45 Bedside Glucose 143 100 137 Lab Scanned Report REFERENCE LAB Test 03/05/19 05:25 03/05/19 08:18 White Blood Count 5.9 Red Blood Count 2.63 L Hemoglobin 8.8 L Hematocrit 27.3 L Mean Corpuscular 103.8 H Volume Mean Corpuscular 33.5 H Hemoglobin Mean Corpuscular 32.2 Hemoglobin Concent Red Cell 20.8 H Distribution Width Platelet Count 308 Mean Platelet 10.1 Volume Immature 1.900 H Granulocytes % Neutrophils % 67.2 Lymphocytes % 8.6 L Monocytes % 21.2 H Eosinophils % 0.8 Basophils % 0.3 Nucleated Red 4.0 H Blood Cells % Immature 0.110 H Granulocytes # Neutrophils # 4.0 Lymphocytes # 0.5 L Monocytes # 1.3 H Eosinophils # 0.1 Basophils # 0.0 Nucleated Red 0.2 H Blood Cells # Sodium Level 139 Potassium Level 4.4 Chloride Level 100 Carbon Dioxide 28 Level Anion Gap 11 Blood Urea 34 #H Nitrogen Creatinine 4.47 #H Est Glomerular 10 L Filtrat Rate mL/min Glucose Level 123 Calcium Level 10.0 Phosphorus Level 3.1 Magnesium Level 2.2 Bedside Glucose 118 Home Meds Active Scripts Hydrocodone/Acetaminophen ([place] 5-325 Tablet) 1 Each Tablet, 1 TAB PO TID PRN for PAIN, #12 TAB Prov:CHIQUITA JAVED MD 02/04/19 Ondansetron (Ondansetron Odt) 4 Mg Tab.rapdis, 4 MG PO Q6H PRN for NAUSEA AND/OR VOMITING, #10 TAB Prov:MK DUGGAN MD 01/28/19 Loperamide Hcl* (Imodium*) 2 Mg Capsule, 2 MG PO .AFTER EA LOOSE BM PRN for DIARRHEA, #20 TAB Prov:MK DUGGAN MD 01/28/19 Ondansetron (Ondansetron Odt) 4 Mg Tab.rapdis, 4 MG PO Q6H PRN for NAUSEA AND/OR VOMITING, #10 TAB Prov:TON ALMEIDA PA-C 01/16/19 Reported Medications Multivit/Ca Carb/B Cmplx/Fa* (Shanti-Horacio*) 1 Tab Tab, 1 TAB PO DAILY for 30 Days, #30 02/21/19 Clopidogrel Bisulfate (Clopidogrel) 75 Mg Tablet, 75 MG PO DAILY for 60 Days, #60 TAB 02/21/19 Gabapentin* (Gabapentin*) 100 Mg Capsule, 100 MG PO BID for 30 Days, #60 02/21/19 Diphenhydramine Hcl (BANOPHEN) 50 Mg Capsule, 50 MG PO DAILY PRN for ALLERGIC REACTION 02/21/19 valAcyclovir Hcl* (valACYclovir Hcl*) 500 Mg Tablet, 1000 MG PO TID, TAB 02/21/19 Hydralazine Hcl* (Hydralazine Hcl*) 25 Mg Tab, 75 MG PO TID, #90 TAB 10/12/18 Linagliptin (TRADJENTA) 5 Mg Tablet, 5 MG PO DAILY, TAB 10/12/18 Metoprolol Succinate* (Toprol XL*) 50 Mg Tab.er.24h, 50 MG PO DAILY, #30 TAB 10/12/18 Calcium Acetate* (Calcium Acetate*) 667 Mg Capsule, 1334 MG PO WITH MEALS, #60 CAP 10/12/18 Folic Acid* (Folic Acid*) 1 Mg Tablet, 1 MG PO DAILY, TAB 10/12/18 Docusate Sodium* (Colace*) 100 Mg Capsule, 100 MG PO DAILY, #30 CAP 10/12/18 Pantoprazole* (Protonix*) 40 Mg Tablet.dr, 40 MG PO DAILY, TAB 10/04/18 Cholecalciferol* (Vitamin D*) 400 Unit Tablet, 400 UNIT PO BID, TAB 10/04/18 Medications Current Medications Calcium Acetate (Phoslo) 1,334 mg WITH MEALS PO Last administered on 03/05/19at 08:42; Admin Dose 1,334 MG; Start 02/21/19 at 12:00 Clopidogrel Bisulfate (plaVIX) 75 mg DAILY PO Last administered on 03/05/19 08:43; Admin Dose 75 MG; Start 02/22/19 at 09:00 Docusate Sodium (Colace) 100 mg DAILY PO Last administered on 03/05/19 08:43; Admin Dose 100 MG; Start 02/22/19 at 09:00 Folic Acid (Folic Acid) 1 mg DAILY PO Last administered on 03/05/19 08:43; Admin Dose 1 MG; Start 02/22/19 at 09:00 Hydralazine HCl (Apresoline) 75 mg TID PO Last administered on 03/05/19at 08:44; Admin Dose 75 MG; Start 02/21/19 at 13:00 Linagliptin (Tradjenta) 5 mg DAILY PO Last administered on 03/05/19 08:43; Admin Dose 5 MG; Start 02/22/19 at 09:00 Metoprolol Succinate (Toprol Xl) 50 mg DAILY PO Last administered on 03/05/19 08:43; Admin Dose 50 MG; Start 02/22/19 at 09:00 Ondansetron HCl (Zofran Odt) 4 mg Q6H PRN ODT NAUSEA AND/OR VOMITING; Start 02/21/19 at 10:00 Diagnostic Test (Pha) (Accu-Chek) 1 ea AC MEALS AND BEDTIME XX Last administered on 03/05/19 07:00; Admin Dose 1 EA; Start 02/21/19 at 11:30 Diagnostic Test (Pha) (Accu-Chek) 1 ea 02 XX ; Start 02/22/19 at 02:00 Insulin Aspart (Novolog Insulin Pen) NOVOLOG *MILD* ALGORITHM WITH MEALS BEDTIME SC Last administered on 03/04/19 11:45; Admin Dose 1 UNIT; Start 02/21/19 at 21:00 Hydralazine HCl (Apresoline) 10 mg Q6H PRN IV SBP >165 Last administered on 03/04/19 18:12; Admin Dose 10 MG; Start 02/21/19 at 19:30 Pantoprazole (Protonix Tab) 40 mg DAILY@06 PO Last administered on 03/05/19 06:11; Admin Dose 40 MG; Start 02/22/19 at 14:30 Heparin Sodium (Porcine) (Heparin (5000 Units/1ml)) 5,000 unit BID SC Last administered on 03/05/19 09:00; Admin Dose 5,000 UNIT; Start 02/22/19 at 21:00 Epoetin Carlos-epbx (Retacrit (Esrd)) 4,000 unit TuThSa@1700 SC Last administered on 03/02/19 21:02; Admin Dose 4,000 UNIT; Start 02/23/19 at 17:00 Fluticasone Propionate (Flonase 0.05% Nasal) 1 spray DAILY NASAL Last administered on 03/05/19 08:44; Admin Dose 1 SPRAY; Start 02/23/19 at 16:30 Hydralazine HCl (Apresoline) 20 mg Q6H PRN IV ELEVATED SYSTOLIC BP Last administered on 7/29/19at 05:06; Admin Dose 20 MG; Start 02/28/19 at 00:30 Acyclovir 370 mg/ Dextrose 100 ml @ 100 mls/hr Q24H IVPB Last administered on 03/04/19at 18:53; Admin Dose 100 MLS/HR; Start 02/28/19 at 18:00 Assessment/Plan Hospital Course (Demo Recall) 1. Complete heart block/s/p normal functioning permanent pacemaker 2. Episode of reported bradycardia by nurses: Most likely secondary to PVCs. Will monitor on telemetry for any significant other and arrhythmia or pacemaker malfunction 3. Herpes zoster infection 4. Renal failure on dialysis 5. Hypertension 6. History of diabetes: Coronary good control 7. Ventricular arrhythmias and frequent PVCs 8. Acute encephalopathy and altered level of consciousness: improving now Recommendation: Patient will monitor on telemetry. Hemodialysis to be continued as per renal Antibiotic/antiviral management as per internal medicine and ID recommendations Follow-up with neurology recommendations. f/u CSF results cont betablocker Thank you his referral. We will continue to follow along with you YOSEPH CARCAMO MD [facility] YOSEPH CARCAMO MD Mar 05, 2019 10:43
[2019-03-05 11:37] VITALS: BP 127/61; PULSE 87; RESP 20
--- NOTE | 2019-03-05 11:37 | CONS ---
Consult Date/Type/Reason Admit Date/Time Feb 21, 2019 at 03:02 Initial Consult Date 02/28/19 Type of Consult Pulmonary Requesting Provider: ELIANA NEELY MD Date/Time of Note DATE: 03/05/19 TIME: 11:36 Subjective Patient appears comfortable this morning more alert no respiratory distress. Chest x-ray was reviewed possible cavity right upper lobe. Objective Vital Signs Date Temp Pulse Resp B/P (MAP) Pulse Ox O2 O2 Flow FiO2 Time Delivery Rate 03/05/19 97.9 89 18 129/59 91 07:21 (82) 03/04/19 Room Air 18:00 03/03/19 2.0 20:08 03/02/19 28 17:41 Intake and Output 03/04/19 03/04/19 03/05/19 1515:00 23:00 07:00 IntakeIntake Total 150 ml OutputOutput Total 3500 ml BalanceBalance -3500 ml 150 ml Exam GENERAL: Well-nourished well-developed lady comfortable at rest VITAL SIGNS: per chart NECK: Supple. No JVD or lymphadenopathy. CARDIAC EXAM: S1, S2. No added sounds or murmurs. CHEST: clear bilaterally, No added sounds, rales or wheezes ABDOMEN: Soft, nontender. No guarding or rebound. EXTREMITIES: No cyanosis, clubbing or edema. NEUROLOGIC: Generalized weakness. No focal deficits. Vent Setting Fraction of Inspired Oxygen pe: 28 Results/Medications Result Diagram: 03/05/19 0525 03/05/19 0525 Results 24 hrs Laboratory Tests Test 03/04/19 12:22 03/04/19 16:45 03/04/19 21:45 03/05/19 05:25 Lab Scanned Report REFERENCE LAB Bedside Glucose 100 137 White Blood Count 5.9 Red Blood Count 2.63 L Hemoglobin 8.8 L Hematocrit 27.3 L Mean Corpuscular 103.8 H Volume Mean Corpuscular 33.5 H Hemoglobin Mean Corpuscular 32.2 Hemoglobin Concent Red Cell 20.8 H Distribution Width Platelet Count 308 Mean Platelet 10.1 Volume Immature 1.900 H Granulocytes % Neutrophils % 67.2 Lymphocytes % 8.6 L Monocytes % 21.2 H Eosinophils % 0.8 Basophils % 0.3 Nucleated Red 4.0 H Blood Cells % Immature 0.110 H Granulocytes # Neutrophils # 4.0 Lymphocytes # 0.5 L Monocytes # 1.3 H Eosinophils # 0.1 Basophils # 0.0 Nucleated Red 0.2 H Blood Cells # Sodium Level 139 Potassium Level 4.4 Chloride Level 100 Carbon Dioxide 28 Level Anion Gap 11 Blood Urea 34 #H Nitrogen Creatinine 4.47 #H Est Glomerular 10 L Filtrat Rate mL/min Glucose Level 123 Calcium Level 10.0 Phosphorus Level 3.1 Magnesium Level 2.2 Test 03/05/19 08:18 Bedside Glucose 118 Medications Current Medications Calcium Acetate (Phoslo) 1,334 mg WITH MEALS PO Last administered on 03/05/19 08:42; Admin Dose 1,334 MG; Start 02/21/19 at 12:00 Clopidogrel Bisulfate (plaVIX) 75 mg DAILY PO Last administered on 03/05/19 08:43; Admin Dose 75 MG; Start 02/22/19 at 09:00 Docusate Sodium (Colace) 100 mg DAILY PO Last administered on 03/05/19 08:43; Admin Dose 100 MG; Start 02/22/19 at 09:00 Folic Acid (Folic Acid) 1 mg DAILY PO Last administered on 03/05/19 08:43; Admin Dose 1 MG; Start 02/22/19 at 09:00 Hydralazine HCl (Apresoline) 75 mg TID PO Last administered on 03/05/19 08:44; Admin Dose 75 MG; Start 02/21/19 at 13:00 Linagliptin (Tradjenta) 5 mg DAILY PO Last administered on 03/05/19 08:43; Admin Dose 5 MG; Start 02/22/19 at 09:00 Metoprolol Succinate (Toprol Xl) 50 mg DAILY PO Last administered on 03/05/19 08:43; Admin Dose 50 MG; Start 02/22/19 at 09:00 Ondansetron HCl (Zofran Odt) 4 mg Q6H PRN ODT NAUSEA AND/OR VOMITING; Start 02/21/19 at 10:00 Diagnostic Test (Pha) (Accu-Chek) 1 ea AC MEALS AND BEDTIME XX Last administered on 03/05/19 07:00; Admin Dose 1 EA; Start 02/21/19 at 11:30 Diagnostic Test (Pha) (Accu-Chek) 1 ea 02 XX ; Start 02/22/19 at 02:00 Insulin Aspart (Novolog Insulin Pen) NOVOLOG *MILD* ALGORITHM WITH MEALS BEDTIME SC Last administered on 03/04/19 11:45; Admin Dose 1 UNIT; Start 02/21/19 at 21:00 Hydralazine HCl (Apresoline) 10 mg Q6H PRN IV SBP >165 Last administered on 03/04/19 18:12; Admin Dose 10 MG; Start 02/21/19 at 19:30 Pantoprazole (Protonix Tab) 40 mg DAILY@06 PO Last administered on 03/05/19 06:11; Admin Dose 40 MG; Start 02/22/19 at 14:30 Heparin Sodium (Porcine) (Heparin (5000 Units/1ml)) 5,000 unit BID SC Last administered on 03/05/19 09:00; Admin Dose 5,000 UNIT; Start 02/22/19 at 21:00 Epoetin Carlos-epbx (Retacrit (Esrd)) 4,000 unit TuThSa@1700 SC Last administered on 03/02/19 21:02; Admin Dose 4,000 UNIT; Start 02/23/19 at 17:00 Fluticasone Propionate (Flonase 0.05% Nasal) 1 spray DAILY NASAL Last administered on 03/05/19 08:44; Admin Dose 1 SPRAY; Start 02/23/19 at 16:30 Hydralazine HCl (Apresoline) 20 mg Q6H PRN IV ELEVATED SYSTOLIC BP Last administered on 03/04/19 05:06; Admin Dose 20 MG; Start 02/28/19 at 00:30 Acyclovir 370 mg/ Dextrose 100 ml @ 100 mls/hr Q24H IVPB Last administered on 03/04/19 18:53; Admin Dose 100 MLS/HR; Start 02/28/19 at 18:00 Assessment/Plan Hospital Course (Demo Recall) IMP: 1. resolving encephalopathy 2. ESRD on HD 3. History of SSS s/p per 4. Chronic anemia. 5. History of hypertension 6. Possible bronchiectasis vs cavity with in the right upper lobe RECS: 1. Neuro work-up in progress 2. Aspiration precautions 3. Am labs 4. Aspiration precautions 5. Limit sedatives/narcotics 6. CT chest noncontrast ALYSSA SERRANO MD, [facility] Mar 05, 2019 11:37
--- NOTE | 2019-03-05 12:46 | PN ---
Date/Time of Note Date/Time of Note DATE: 03/05/19 TIME: 12:44 Assessment/Plan VTE Prophylaxis Risk score (from Nsg)>0 risk: 6 SCD applied (from Ns): Yes Pharmacological prophylaxis: NA/contraindicated Pharm contraindication: low risk/ambulating Lines/Catheters IV Catheter Type (from Nrsg): Mid Line Urinary Cath still in place: No Assessment/Plan Hospital Course # AMS likely secondary to encephalpopathy due to meds vs encephalitis ? viral likely herpes LP +15WBC and 100mono partially treated EEG slowing. now has gram pos bacterimia coagulase +bacterimia > ams resolved #Headaches. resolved. 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 The patient has mild leukocytosis, resolved. Currently, the patient does not have any evidence of any meningitis. Little lethargic #. Basilar opacity with pneumonia. Chest x-ray ordered # End stage renal disease, on hemodialysis. # Left lower extremity edema, anasarca. # Hypertension, normotensive now. 7. Diabetes mellitus type II, controlled blood sugar is normal. 8. Hyperlipidemia. 9. History of ovarian tumor. 10. Anemia of CD 11. Overweight 12. Hepatitis B 13. Mild scattered paranasal sinus disease with small mucoid secretion in the right sphenoid sinus, correlate for acute sinusitis. CT scan seen 14 rt arm edema r/o DVT/ fistula in place Assessment/Plan - HD tmw - pending PCR VSV she was negative we will check with ID and neuro if acyclovir needs to be continued -CT chest ordered - CW plavix -c w MTP/hydralazine - cw trradenta, - right arm US and arterial doppler - PT/OT - Continue with Epogen - Renally dose all meds spoke to at bedside Will likely need SNF Result Diagram: 03/05/19 0503/05/19 0525 Results 24hrs Laboratory Tests Test 03/04/19 16:45 03/04/19 21:45 03/05/19 05:25 03/05/19 08:18 Bedside Glucose 100 137 118 White Blood Count 5.9 Red Blood Count 2.63 L Hemoglobin 8.8 L Hematocrit 27.3 L Mean Corpuscular 103.8 H Volume Mean Corpuscular 33.5 H Hemoglobin Mean Corpuscular 32.2 Hemoglobin Concent Red Cell 20.8 H Distribution Width Platelet Count 308 Mean Platelet Volume 10.1 Immature 1.900 H Granulocytes % Neutrophils % 67.2 Lymphocytes % 8.6 L Monocytes % 21.2 H Eosinophils % 0.8 Basophils % 0.3 Nucleated Red Blood 4.0 H Cells % Immature 0.110 H Granulocytes # Neutrophils # 4.0 Lymphocytes # 0.5 L Monocytes # 1.3 H Eosinophils # 0.1 Basophils # 0.0 Nucleated Red Blood 0.2 H Cells # Sodium Level 139 Potassium Level 4.4 Chloride Level 100 Carbon Dioxide Level 28 Anion Gap 11 Blood Urea Nitrogen 34 #H Creatinine 4.47 #H Est Glomerular 10 L Filtrat Rate mL/min Glucose Level 123 Calcium Level 10.0 Phosphorus Level 3.1 Magnesium Level 2.2 Test 03/05/19 11:52 Bedside Glucose 117 Subjective 24 Hr Interval Summary Free Text/Dictation This post HD yesterday Very weak CT chest ordered per pulmonary today Exam/Review of Systems Exam Vitals Vital Signs Date Temp Pulse Resp B/P (MAP) Pulse Ox O2 O2 Flow FiO2 Time Delivery Rate 03/05/19 99.0 87 20 127/61 92 11:37 (83) 03/04/19 Room Air 18:00 03/03/19 2.0 20:08 03/02/19 28 17:41 Intake and Output 03/04/19 03/04/19 03/05/19 1515:00 23:00 07:00 IntakeIntake Total 150 ml OutputOutput Total 3500 ml BalanceBalance -3500 ml 150 ml Exam HEENT crusted lesions on rt side of face improved, awake,alert and oriented, follow all commands Pupils equal and reactive to light Neck: supple, no thyromegaly, no carotid bruits Lungs: clear bilaterally, decreased. CVS: regular rate and rhythm, no murmurs Abdomen: soft, bowel sounds present, no hepatosplenomegally, no masses, no rebound or guarding. Obese pacemaker rt fistula neuro exam non focal Results Results 24hrs Laboratory Tests Test 03/04/19 16:45 03/04/19 21:45 03/05/19 05:25 03/05/19 08:18 Bedside Glucose 100 137 118 White Blood Count 5.9 Red Blood Count 2.63 L Hemoglobin 8.8 L Hematocrit 27.3 L Mean Corpuscular 103.8 H Volume Mean Corpuscular 33.5 H Hemoglobin Mean Corpuscular 32.2 Hemoglobin Concent Red Cell 20.8 H Distribution Width Platelet Count 308 Mean Platelet Volume 10.1 Immature 1.900 H Granulocytes % Neutrophils % 67.2 Lymphocytes % 8.6 L Monocytes % 21.2 H Eosinophils % 0.8 Basophils % 0.3 Nucleated Red Blood 4.0 H Cells % Immature 0.110 H Granulocytes # Neutrophils # 4.0 Lymphocytes # 0.5 L Monocytes # 1.3 H Eosinophils # 0.1 Basophils # 0.0 Nucleated Red Blood 0.2 H Cells # Sodium Level 139 Potassium Level 4.4 Chloride Level 100 Carbon Dioxide Level 28 Anion Gap 11 Blood Urea Nitrogen 34 #H Creatinine 4.47 #H Est Glomerular 10 L Filtrat Rate mL/min Glucose Level 123 Calcium Level 10.0 Phosphorus Level 3.1 Magnesium Level 2.2 Test 03/05/19 11:52 Bedside Glucose 117 Medications Medication Current Medications Calcium Acetate (Phoslo) 1,334 mg WITH MEALS PO Last administered on 03/05/19 11:54; Admin Dose 1,334 MG; Start 02/21/19 at 12:00 Clopidogrel Bisulfate (plaVIX) 75 mg DAILY PO Last administered on 03/05/19 08:43; Admin Dose 75 MG; Start 02/22/19 at 09:00 Docusate Sodium (Colace) 100 mg DAILY PO Last administered on 03/05/19 08:43; Admin Dose 100 MG; Start 02/22/19 at 09:00 Folic Acid (Folic Acid) 1 mg DAILY PO Last administered on 03/05/19 08:43; Admin Dose 1 MG; Start 02/22/19 at 09:00 Hydralazine HCl (Apresoline) 75 mg TID PO Last administered on 03/05/19 08:44; Admin Dose 75 MG; Start 02/21/19 at 13:00 Linagliptin (Tradjenta) 5 mg DAILY PO Last administered on 03/05/19 08:43; Admin Dose 5 MG; Start 02/22/19 at 09:00 Metoprolol Succinate (Toprol Xl) 50 mg DAILY PO Last administered on 03/05/19 08:43; Admin Dose 50 MG; Start 02/22/19 at 09:00 Ondansetron HCl (Zofran Odt) 4 mg Q6H PRN ODT NAUSEA AND/OR VOMITING; Start 02/21/19 at 10:00 Diagnostic Test (Pha) (Accu-Chek) 1 ea AC MEALS AND BEDTIME XX Last administered on 03/05/19 11:53; Admin Dose 1 EA; Start 02/21/19 at 11:30 Diagnostic Test (Pha) (Accu-Chek) 1 ea 02 XX ; Start 02/22/19 at 02:00 Insulin Aspart (Novolog Insulin Pen) NOVOLOG *MILD* ALGORITHM WITH MEALS BEDTIME SC Last administered on 03/04/19 11:45; Admin Dose 1 UNIT; Start 02/21/19 at 21:00 Hydralazine HCl (Apresoline) 10 mg Q6H PRN IV SBP >165 Last administered on 03/04/19 18:12; Admin Dose 10 MG; Start 02/21/19 at 19:30 Pantoprazole (Protonix Tab) 40 mg DAILY@06 PO Last administered on 03/05/19 06:11; Admin Dose 40 MG; Start 02/22/19 at 14:30 Heparin Sodium (Porcine) (Heparin (5000 Units/1ml)) 5,000 unit BID SC Last administered on 03/05/19 09:00; Admin Dose 5,000 UNIT; Start 02/22/19 at 21:00 Epoetin Carlos-epbx (Retacrit (Esrd)) 4,000 unit TuThSa@1700 SC Last administered on 03/02/19 21:02; Admin Dose 4,000 UNIT; Start 02/23/19 at 17:00 Fluticasone Propionate (Flonase 0.05% Nasal) 1 spray DAILY NASAL Last administered on 03/05/19 08:44; Admin Dose 1 SPRAY; Start 02/23/19 at 16:30 Hydralazine HCl (Apresoline) 20 mg Q6H PRN IV ELEVATED SYSTOLIC BP Last administered on 03/04/19 05:06; Admin Dose 20 MG; Start 02/28/19 at 00:30 Acyclovir 370 mg/ Dextrose 100 ml @ 100 mls/hr Q24H IVPB Last administered on 03/04/19 18:53; Admin Dose 100 MLS/HR; Start 02/28/19 at 18:00 ELIANA NEELY MD Mar 05, 2019 12:46
--- NOTE | 2019-03-05 12:57 | CONS ---
Assessment/Plan Assessment/Plan Hospital Course (Demo Recall) SUBJECTIVE: The patient is alert, feels good, looks comfortable. Denies pain, no fevers overnight. PHYSICAL EXAMINATION: GENERAL: This is an obese, chronically ill-appearing, elderly woman who is awake, in no distress. HEENT: Head traumatic, normocephalic. NECK: Supple. CHEST: Rise symmetrical. Breath sounds clear. HEART: S1, S2. ABDOMEN: Soft, bowel sounds present. EXTREMITIES: Without cyanosis. ASSESSMENT: 1. Status post acute encephalopathy. 2. Aseptic meningitis. 3. Coag-negative staphylococcus bacteremia, consistent with contaminant. 4. History of shingles. 5. End-stage renal disease. 6. Diabetes. 7. Hypertension. PLAN: The patient remains stable, HZV PCR neg, will dc Acyclovir DW DR Xavier Consultation Date/Type/Reason Admit Date/Time Feb 21, 2019 at 03:02 Initial Consult Date Type of Consult id Requesting Provider: ELIANA NEELY MD Date/Time of Note DATE: 03/05/19 TIME: 12:56 Exam/Review of Systems Exam Vitals Vital Signs Date Temp Pulse Resp B/P (MAP) Pulse Ox O2 O2 Flow FiO2 Time Delivery Rate 03/05/19 99.0 87 20 127/61 92 11:37 (83) 03/04/19 Room Air 18:00 03/03/19 2.0 20:08 03/02/19 28 17:41 Intake and Output 03/04/19 03/04/19 03/05/19 1515:00 23:00 07:00 IntakeIntake Total 150 ml OutputOutput Total 3500 ml BalanceBalance -3500 ml 150 ml Results Result Diagram: 03/05/19 0525 03/05/19 0525 Results 24hrs Laboratory Tests Test 03/04/19 16:45 03/04/19 21:45 03/05/19 05:25 03/05/19 08:18 Bedside Glucose 100 137 118 White Blood Count 5.9 Red Blood Count 2.63 L Hemoglobin 8.8 L Hematocrit 27.3 L Mean Corpuscular 103.8 H Volume Mean Corpuscular 33.5 H Hemoglobin Mean Corpuscular 32.2 Hemoglobin Concent Red Cell 20.8 H Distribution Width Platelet Count 308 Mean Platelet Volume 10.1 Immature 1.900 H Granulocytes % Neutrophils % 67.2 Lymphocytes % 8.6 L Monocytes % 21.2 H Eosinophils % 0.8 Basophils % 0.3 Nucleated Red Blood 4.0 H Cells % Immature 0.110 H Granulocytes # Neutrophils # 4.0 Lymphocytes # 0.5 L Monocytes # 1.3 H Eosinophils # 0.1 Basophils # 0.0 Nucleated Red Blood 0.2 H Cells # Sodium Level 139 Potassium Level 4.4 Chloride Level 100 Carbon Dioxide Level 28 Anion Gap 11 Blood Urea Nitrogen 34 #H Creatinine 4.47 #H Est Glomerular 10 L Filtrat Rate mL/min Glucose Level 123 Calcium Level 10.0 Phosphorus Level 3.1 Magnesium Level 2.2 Test 03/05/19 11:52 Bedside Glucose 117 Medications Medication Current Medications Calcium Acetate (Phoslo) 1,334 mg WITH MEALS PO Last administered on 03/05/19 11:54; Admin Dose 1,334 MG; Start 02/21/19 at 12:00 Clopidogrel Bisulfate (plaVIX) 75 mg DAILY PO Last administered on 03/05/19 08:43; Admin Dose 75 MG; Start 02/22/19 at 09:00 Docusate Sodium (Colace) 100 mg DAILY PO Last administered on 03/05/19 08:43; Admin Dose 100 MG; Start 02/22/19 at 09:00 Folic Acid (Folic Acid) 1 mg DAILY PO Last administered on 03/05/19 08:43; Admin Dose 1 MG; Start 02/22/19 at 09:00 Hydralazine HCl (Apresoline) 75 mg TID PO Last administered on 03/05/19 08:44; Admin Dose 75 MG; Start 02/21/19 at 13:00 Linagliptin (Tradjenta) 5 mg DAILY PO Last administered on 03/05/19 08:43; Admin Dose 5 MG; Start 02/22/19 at 09:00 Metoprolol Succinate (Toprol Xl) 50 mg DAILY PO Last administered on 03/05/19 08:43; Admin Dose 50 MG; Start 02/22/19 at 09:00 Ondansetron HCl (Zofran Odt) 4 mg Q6H PRN ODT NAUSEA AND/OR VOMITING; Start 02/21/19 at 10:00 Diagnostic Test (Pha) (Accu-Chek) 1 ea AC MEALS AND BEDTIME XX Last administered on 03/05/19 11:53; Admin Dose 1 EA; Start 02/21/19 at 11:30 Diagnostic Test (Pha) (Accu-Chek) 1 ea 02 XX ; Start 02/22/19 at 02:00 Insulin Aspart (Novolog Insulin Pen) NOVOLOG *MILD* ALGORITHM WITH MEALS BEDTIME SC Last administered on 03/04/19 11:45; Admin Dose 1 UNIT; Start 02/21/19 at 21:00 Hydralazine HCl (Apresoline) 10 mg Q6H PRN IV SBP >165 Last administered on 03/04/19 18:12; Admin Dose 10 MG; Start 02/21/19 at 19:30 Pantoprazole (Protonix Tab) 40 mg DAILY@06 PO Last administered on 03/05/19 06:11; Admin Dose 40 MG; Start 02/22/19 at 14:30 Heparin Sodium (Porcine) (Heparin (5000 Units/1ml)) 5,000 unit BID SC Last administered on 03/05/19 09:00; Admin Dose 5,000 UNIT; Start 02/22/19 at 21:00 Epoetin Carlos-epbx (Retacrit (Esrd)) 4,000 unit TuThSa@1700 SC Last administered on 03/02/19 21:02; Admin Dose 4,000 UNIT; Start 02/23/19 at 17:00 Fluticasone Propionate (Flonase 0.05% Nasal) 1 spray DAILY NASAL Last administered on 03/05/19 08:44; Admin Dose 1 SPRAY; Start 02/23/19 at 16:30 Hydralazine HCl (Apresoline) 20 mg Q6H PRN IV ELEVATED SYSTOLIC BP Last administered on 03/04/19 05:06; Admin Dose 20 MG; Start 02/28/19 at 00:30 Acyclovir 370 mg/ Dextrose 100 ml @ 100 mls/hr Q24H IVPB Last administered on 03/04/19 18:53; Admin Dose 100 MLS/HR; Start 02/28/19 at 18:00 ADEOLA BRYAN NP Mar 05, 2019 12:57
[2019-03-05 15:31] VITALS: BP 154/67; PULSE 90; RESP 20
[2019-03-05] MEDS: EPOETIN ALFA-EPBX (ESRD) 4,000 UNIT/ML VIAL SC SCH (17:38)
[2019-03-05 20:21] VITALS: BP 147/69; PULSE 86; RESP 18
[2019-03-06] VITALS (20 sets, daily range): BP systolic 122–150; BP diastolic 62–79; PULSE 76–93; RESP 16–20
[2019-03-06] MEDS: ACCU-CHEK XX SCH ×5 (02:00→21:00)
[2019-03-06] MEDS: PANTOPRAZOLE (EC) 40 MG TAB PO SCH (05:53)
[2019-03-06] MEDS: INSULIN ASPART [NOVOLOG] 3 ML PEN SC SCH ×4 (07:50→21:00)
--- NOTE | 2019-03-06 08:58 | CONS ---
Consult Date/Type/Reason Admit Date/Time Feb 21, 2019 at 03:02 Initial Consult Date 02/25/19 Type of Consultation: cv Requesting Provider: ELIANA NEELY MD Date/Time of Note DATE: 03/06/19 TIME: 08:57 Subjective Interventional cardiology follow-up progress note Subjective: Case discussed with the staff and Telemetry was reviewed. Patient has remained sinus rhythm with ventricular paced. d/w Patient is less lethargic she is out of ICU on tele now She says she is feeling okay denies any chest pain or pressure or palpitation but is very weak Objective: General: no acute distress HEENT: NC/AT. pupils are equal. round. NECK: NO JVD. no stridor. CV: RRR. systolic murmur; no gallop or rubs. PULM: no wheezing or rhonchi. GI: SOFT, NT, ND, no rebound or guarding Extremity: trace B/L LE edema. no clubbing. neuro: awake and alert Psych: calm and pleasant rectal: deferred Derm: Right upper forehead with crusted lesions ,but is improving EKG showed ventricular paced rhythm Head CT done February 27, 2019 shows: 1. Mild generalized cerebral and cerebellar volume loss and nonspecific chronic microvascular ischemic disease. 2. No evidence of intracranial masses hemorrhages or midline shift. 3. Right periorbital soft tissue swelling. No calvarial fractures. Objective Vitals Vital Signs Date Temp Pulse Resp B/P (MAP) Pulse Ox O2 O2 Flow FiO2 Time Delivery Rate 03/06/19 98.5 87 18 145/68 96 Room Air 07:19 (93) 03/03/19 2.0 20:08 03/02/19 28 17:41 Intake and Output 03/05/19 03/05/19 03/06/19 1515:00 23:00 07:00 IntakeIntake Total 200 ml OutputOutput Total 0 ml BalanceBalance 200 ml Results/Medications Result Diagram: 03/05/19 0525 03/06/19 0553 Results 24 hrs Laboratory Tests Test 03/05/19 11:52 03/05/19 17:21 03/05/19 20:42 03/06/19 05:53 Bedside Glucose 117 108 112 Sodium Level 139 Potassium Level 4.7 Chloride Level 99 Carbon Dioxide Level 25 Anion Gap 15 H Blood Urea Nitrogen 55 H Creatinine 6.59 #H Est Glomerular 6 L Filtrat Rate mL/min Glucose Level 110 Calcium Level 10.3 H Test 03/06/19 07:49 Bedside Glucose 114 Home Meds Active Scripts Hydrocodone/Acetaminophen ([place] 5-325 Tablet) 1 Each Tablet, 1 TAB PO TID PRN for PAIN, #12 TAB Prov:CHIQUITA JAVED MD 02/04/19 Ondansetron (Ondansetron Odt) 4 Mg Tab.rapdis, 4 MG PO Q6H PRN for NAUSEA AND/OR VOMITING, #10 TAB Prov:MK DUGGAN MD 01/28/19 Loperamide Hcl* (Imodium*) 2 Mg Capsule, 2 MG PO .AFTER EA LOOSE BM PRN for D IARRHEA, #20 TAB Prov:MK DUGGAN MD 01/28/19 Ondansetron (Ondansetron Odt) 4 Mg Tab.rapdis, 4 MG PO Q6H PRN for NAUSEA AND/OR VOMITING, #10 TAB Prov:TON ALMEIDA PA-C 01/16/19 Reported Medications Multivit/Ca Carb/B Cmplx/Fa* (Shanti-Horacio*) 1 Tab Tab, 1 TAB PO DAILY for 30 Days, #30 02/21/19 Clopidogrel Bisulfate (Clopidogrel) 75 Mg Tablet, 75 MG PO DAILY for 60 Days, #60 TAB 02/21/19 Gabapentin* (Gabapentin*) 100 Mg Capsule, 100 MG PO BID for 30 Days, #60 02/21/19 Diphenhydramine Hcl (BANOPHEN) 50 Mg Capsule, 50 MG PO DAILY PRN for ALLERGIC REACTION 02/21/19 valAcyclovir Hcl* (valACYclovir Hcl*) 500 Mg Tablet, 1000 MG PO TID, TAB 02/21/19 Hydralazine Hcl* (Hydralazine Hcl*) 25 Mg Tab, 75 MG PO TID, #90 TAB 10/12/18 Linagliptin (TRADJENTA) 5 Mg Tablet, 5 MG PO DAILY, TAB 10/12/18 Metoprolol Succinate* (Toprol XL*) 50 Mg Tab.er.24h, 50 MG PO DAILY, #30 TAB 10/12/18 Calcium Acetate* (Calcium Acetate*) 667 Mg Capsule, 1334 MG PO WITH MEALS, #60 CAP 10/12/18 Folic Acid* (Folic Acid*) 1 Mg Tablet, 1 MG PO DAILY, TAB 10/12/18 Docusate Sodium* (Colace*) 100 Mg Capsule, 100 MG PO DAILY, #30 CAP 10/12/18 Pantoprazole* (Protonix*) 40 Mg Tablet.dr, 40 MG PO DAILY, TAB 10/04/18 Cholecalciferol* (Vitamin D*) 400 Unit Tablet, 400 UNIT PO BID, TAB 10/04/18 Medications Current Medications Calcium Acetate (Phoslo) 1,334 mg WITH MEALS PO Last administered on 03/05/19 17:24; Admin Dose 1,334 MG; Start 02/21/19 at 12:00 Clopidogrel Bisulfate (plaVIX) 75 mg DAILY PO Last administered on 03/05/19 08:43; Admin Dose 75 MG; Start 02/22/19 at 09:00 Docusate Sodium (Colace) 100 mg DAILY PO Last administered on 03/05/19 08:43; Admin Dose 100 MG; Start 02/22/19 at 09:00 Folic Acid (Folic Acid) 1 mg DAILY PO Last administered on 03/05/19 08:43; Ad min Dose 1 MG; Start 02/22/19 at 09:00 Hydralazine HCl (Apresoline) 75 mg TID PO Last administered on 03/05/19 20:39; Admin Dose 75 MG; Start 02/21/19 at 13:00 Linagliptin (Tradjenta) 5 mg DAILY PO Last administered on 03/05/19 08:43; Admin Dose 5 MG; Start 02/22/19 at 09:00 Metoprolol Succinate (Toprol Xl) 50 mg DAILY PO Last administered on 03/05/19 08:43; Admin Dose 50 MG; Start 02/22/19 at 09:00 Ondansetron HCl (Zofran Odt) 4 mg Q6H PRN ODT NAUSEA AND/OR VOMITING; Start 02/21/19 at 10:00 Diagnostic Test (Pha) (Accu-Chek) 1 ea AC MEALS AND BEDTIME XX Last administered on 03/06/19 07:50; Admin Dose 1 EA; Start 02/21/19 at 11:30 Diagnostic Test (Pha) (Accu-Chek) 1 ea 02 XX ; Start 02/22/19 at 02:00 Insulin Aspart (Novolog Insulin Pen) NOVOLOG *MILD* ALGORITHM WITH MEALS BEDTIME SC Last administered on 03/04/19 11:45; Admin Dose 1 UNIT; Start 02/21/19 at 21:00 Hydralazine HCl (Apresoline) 10 mg Q6H PRN IV SBP >165 Last administered on 03/04/19 18:12; Admin Dose 10 MG; Start 02/21/19 at 19:30 Pantoprazole (Protonix Tab) 40 mg DAILY@06 PO Last administered on 03/06/19 05:53; Admin Dose 40 MG; Start 02/22/19 at 14:30 Heparin Sodium (Porcine) (Heparin (5000 Units/1ml)) 5,000 unit BID SC Last administered on 03/05/19 21:13; Admin Dose 5,000 UNIT; Start 02/22/19 at 21:00 Epoetin Carlos-epbx (Retacrit (Esrd)) 4,000 unit TuThSa@1700 SC Last administered on 03/05/19 17:38; Admin Dose 4,000 UNIT; Start 02/23/19 at 17:00 Fluticasone Propionate (Flonase 0.05% Nasal) 1 spray DAILY NASAL Last administered on 03/05/19 08:44; Admin Dose 1 SPRAY; Start 02/23/19 at 16:30 Hydralazine HCl (Apresoline) 20 mg Q6H PRN IV ELEVATED SYSTOLIC BP Last administered on 03/04/19 05:06; Admin Dose 20 MG; Start 02/28/19 at 00:30 Assessment/Plan Hospital Course (Demo Recall) 1. Complete heart block/s/p normal functioning permanent pacemaker 2. Episode of reported bradycardia by nurses: Most likely secondary to PVCs. Will monitor on telemetry for any significant other and arrhythmia or pacemaker malfunction 3. Herpes zoster infection 4. Renal failure on dialysis 5. Hypertension 6. History of diabetes: Coronary good control 7. Ventricular arrhythmias and frequent PVCs 8. Acute encephalopathy and altered level of consciousness: improving now 9. Debility Recommendation: Patient will monitor on telemetry. Hemodialysis to be continued as per renal Antibiotic/antiviral management as per internal medicine and ID recommendations Follow-up with neurology recommendations. f/u CSF results cont betablocker Consider acute rehab evaluation Thank you his referral. We will continue to follow along with you YOSEPH CARCAMO MD [facility] YOSEPH CARCAMO MD Mar 06, 2019 08:58
[2019-03-06] MEDS: FLUTICASONE 0.05% 16 GM NAS SPRAY NASAL SCH (09:41)
[2019-03-06] MEDS: DOCUSATE SODIUM 100 MG CAP PO SCH (09:42)
[2019-03-06] MEDS: CLOPIDOGREL 75 MG TAB PO SCH (09:42)
[2019-03-06] MEDS: LINAGLIPTIN 5 MG TABLET PO SCH (09:42)
[2019-03-06] MEDS: CALCIUM ACETATE 667 MG CAP PO SCH ×2 (09:42→11:43)
[2019-03-06] MEDS: FOLIC ACID 1 MG TAB PO SCH (09:42)
[2019-03-06] MEDS: METOPROLOL (XL) 50 MG TAB PO SCH (09:43)
[2019-03-06] MEDS: HEPARIN 5,000 UNIT/1 ML VIAL SC SCH ×2 (09:45→21:23)
--- NOTE | 2019-03-06 11:42 | CONS ---
Consult Date/Type/Reason Admit Date/Time Feb 21, 2019 at 03:02 Initial Consult Date 02/28/19 Type of Consult Pulmonary Requesting Provider: ELIANA NEELY MD Date/Time of Note DATE: 03/06/19 TIME: 11:37 Subjective patient comfortable. No respiratory distress. Objective Vital Signs Date Temp Pulse Resp B/P (MAP) Pulse Ox O2 O2 Flow FiO2 Time Delivery Rate 03/06/19 91 11:20 03/06/19 98.1 18 139/68 95 Room Air 11:05 (91) 03/03/19 2.0 20:08 03/02/19 28 17:41 Intake and Output 03/05/19 03/05/19 03/06/19 1515:00 23:00 07:00 IntakeIntake Total 200 ml OutputOutput Total 0 ml BalanceBalance 200 ml Exam GENERAL: Well-nourished well-developed lady comfortable at rest VITAL SIGNS: per chart NECK: Supple. No JVD or lymphadenopathy. CARDIAC EXAM: S1, S2. No added sounds or murmurs. CHEST: clear bilaterally, No added sounds, rales or wheezes ABDOMEN: Soft, nontender. No guarding or rebound. EXTREMITIES: No cyanosis, clubbing or edema. NEUROLOGIC: Generalized weakness. No focal deficits. Vent Setting Fraction of Inspired Oxygen pe: 28 Results/Medications Result Diagram: 03/05/19 0525 03/06/19 0553 Results 24 hrs Laboratory Tests Test 03/05/19 11:52 03/05/19 17:21 03/05/19 20:42 03/06/19 05:53 Bedside Glucose 117 108 112 Sodium Level 139 Potassium Level 4.7 Chloride Level 99 Carbon Dioxide Level 25 Anion Gap 15 H Blood Urea Nitrogen 55 H Creatinine 6.59 #H Est Glomerular 6 L Filtrat Rate mL/min Glucose Level 110 Calcium Level 10.3 H Test 03/06/19 07:49 Bedside Glucose 114 Medications Current Medications Calcium Acetate (Phoslo) 1,334 mg WITH MEALS PO Last administered on 03/06/19at 09:42; Admin Dose 1,334 MG; Start 02/21/19 at 12:00 Clopidogrel Bisulfate (plaVIX) 75 mg DAILY PO Last administered on 03/06/19at 09:42; Admin Dose 75 MG; Start 02/22/19 at 09:00 Docusate Sodium (Colace) 100 mg DAILY PO Last administered on 03/06/19 09:42; Admin Dose 100 MG; Start 02/22/19 at 09:00 Folic Acid (Folic Acid) 1 mg DAILY PO Last administered on 03/06/19 09:42; Admin Dose 1 MG; Start 02/22/19 at 09:00 Hydralazine HCl (Apresoline) 75 mg TID PO Last administered on 03/06/19 09:42; Admin Dose 75 MG; Start 02/21/19 at 13:00 Linagliptin (Tradjenta) 5 mg DAILY PO Last administered on 03/06/19 09:42; Admin Dose 5 MG; Start 02/22/19 at 09:00 Metoprolol Succinate (Toprol Xl) 50 mg DAILY PO Last administered on 03/06/19 09:43; Admin Dose 50 MG; Start 02/22/19 at 09:00 Ondansetron HCl (Zofran Odt) 4 mg Q6H PRN ODT NAUSEA AND/OR VOMITING; Start 02/21/19 at 10:00 Diagnostic Test (Pha) (Accu-Chek) 1 ea AC MEALS AND BEDTIME XX Last administered on 03/06/19 07:50; Admin Dose 1 EA; Start 02/21/19 at 11:30 Diagnostic Test (Pha) (Accu-Chek) 1 ea 02 XX ; Start 02/22/19 at 02:00 Insulin Aspart (Novolog Insulin Pen) NOVOLOG *MILD* ALGORITHM WITH MEALS BEDTIME SC Last administered on 03/04/19 11:45; Admin Dose 1 UNIT; Start 02/21/19 at 21:00 Hydralazine HCl (Apresoline) 10 mg Q6H PRN IV SBP >165 Last administered on 03/04/19 18:12; Admin Dose 10 MG; Start 02/21/19 at 19:30 Pantoprazole (Protonix Tab) 40 mg DAILY@06 PO Last administered on 03/06/19 05:53; Admin Dose 40 MG; Start 02/22/19 at 14:30 Heparin Sodium (Porcine) (Heparin (5000 Units/1ml)) 5,000 unit BID SC Last administered on 03/06/19 09:45; Admin Dose 5,000 UNIT; Start 02/22/19 at 21:00 Epoetin Carlos-epbx (Retacrit (Esrd)) 4,000 unit TuThSa@1700 SC Last administered on 03/05/19at 17:38; Admin Dose 4,000 UNIT; Start 02/23/19 at 17:00 Fluticasone Propionate (Flonase 0.05% Nasal) 1 spray DAILY NASAL Last administered on 03/06/19at 09:41; Admin Dose 1 SPRAY; Start 02/23/19 at 16:30 Hydralazine HCl (Apresoline) 20 mg Q6H PRN IV ELEVATED SYSTOLIC BP Last administered on 03/04/19at 05:06; Admin Dose 20 MG; Start 02/28/19 at 00:30 Assessment/Plan Hospital Course (Demo Recall) IMP: 1. resolving encephalopathy 2. ESRD on HD 3. History of SSS s/p per 4. Chronic anemia. 5. History of hypertension 6. Atelectasis with moderate pericardial effusion RECS: 1. Neuro work-up in progress 2. Aspiration precautions 3. Feeding as tolerated 4. Aspiration precautions 5. Limit sedatives/narcotics 6 Cardiology recommendations regarding pericardial effusion, likely secondary to end-stage renal failure clinically no evidence of tamponade. ALYSSA SERRANO MD, [facility] Mar 06, 2019 11:42
--- NOTE | 2019-03-06 12:23 | PN ---
Date/Time of Note Date/Time of Note DATE: 03/06/19 TIME: 12:23 Assessment/Plan VTE Prophylaxis Risk score (from Ns)>0 risk: 6 SCD applied (from Ns): Yes Pharmacological prophylaxis: NA/contraindicated Pharm contraindication: low risk/ambulating Lines/Catheters IV Catheter Type (from Nrs): Mid Line Urinary Cath still in place: No Assessment/Plan Hospital Course # AMS likely secondary to encephalpopathy due to meds vs encephalitis ? viral likely herpes LP +15WBC and 100mono partially treated EEG slowing. now has gram pos bacterimia coagulase +bacterimia > ams resolved likely due to aseptic meningitis #Headaches. resolved. 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 The patient has mild leukocytosis, resolved. Currently, the patient does not have any evidence of any meningitis. Little lethargic #. Basilar opacity with pneumonia. Chest x-ray ordered # End stage renal disease, on hemodialysis. # Left lower extremity edema, anasarca. # Hypertension, normotensive now. 7. Diabetes mellitus type II, controlled blood sugar is normal. 8. Hyperlipidemia. 9. History of ovarian tumor. 10. Anemia of CD 11. Overweight 12. Hepatitis B 13. Mild scattered paranasal sinus disease with small mucoid secretion in the right sphenoid sinus, correlate for acute sinusitis. CT scan seen 14 rt arm edema r/o DVT/ fistula in place 15 small-mod pericardial effusion Assessment/Plan - HD today - abx stopped per ID as completed course - pericardial effusion> no tamponade> cw HD - CW plavix -c w MTP/hydralazine - cw trradenta, - right arm US and arterial doppler neg - PT/OT - Continue with Epogen - Renally dose all meds spoke to at bedside Will likely need SNF> in 1-2 days Result Diagram: 03/05/19 0525 03/06/19 0553 Results 24hrs Laboratory Tests Test 03/05/19 17:21 03/05/19 20:42 03/06/19 05:53 03/06/19 07:49 Bedside Glucose 108 112 114 Sodium Level 139 Potassium Level 4.7 Chloride Level 99 Carbon Dioxide Level 25 Anion Gap 15 H Blood Urea Nitrogen 55 H Creatinine 6.59 #H Est Glomerular 6 L Filtrat Rate mL/min Glucose Level 110 Calcium Level 10.3 H Test 03/06/19 11:41 Bedside Glucose 102 Subjective 24 Hr Interval Summary Free Text/Dictation CT of the chest reviewed. With some moderate pericardial effusion Patient doing well denies any complaints Exam/Review of Systems Exam Vitals Vital Signs Date Temp Pulse Resp B/P (MAP) Pulse Ox O2 O2 Flow FiO2 Time Delivery Rate 03/06/19 88 12:20 03/06/19 98.1 18 139/68 95 Room Air 11:05 (91) 03/03/19 2.0 20:08 03/02/19 28 17:41 Intake and Output 03/05/19 03/05/19 03/06/19 1515:00 23:00 07:00 IntakeIntake Total 200 ml OutputOutput Total 0 ml BalanceBalance 200 ml Exam HEENT crusted lesions on rt side of face improved, awake,alert and oriented, follow all commands Pupils equal and reactive to light Neck: supple, no thyromegaly, no carotid bruits Lungs: clear bilaterally, decreased. CVS: regular rate and rhythm, no murmurs Abdomen: soft, bowel sounds present, no hepatosplenomegally, no masses, no rebound or guarding. Obese pacemaker rt fistula neuro exam non focal Results Results 24hrs Laboratory Tests Test 03/05/19 17:21 03/05/19 20:42 03/06/19 05:53 03/06/19 07:49 Bedside Glucose 108 112 114 Sodium Level 139 Potassium Level 4.7 Chloride Level 99 Carbon Dioxide Level 25 Anion Gap 15 H Blood Urea Nitrogen 55 H Creatinine 6.59 #H Est Glomerular 6 L Filtrat Rate mL/min Glucose Level 110 Calcium Level 10.3 H Test 03/06/19 11:41 Bedside Glucose 102 Medications Medication Current Medications Calcium Acetate (Phoslo) 1,334 mg WITH MEALS PO Last administered on 03/06/19at 11:43; Admin Dose 1,334 MG; Start 02/21/19 at 12:00 Clopidogrel Bisulfate (plaVIX) 75 mg DAILY PO Last administered on 03/06/19at 09:42; Admin Dose 75 MG; Start 02/22/19 at 09:00 Docusate Sodium (Colace) 100 mg DAILY PO Last administered on 03/06/19at 09:42; Admin Dose 100 MG; Start 02/22/19 at 09:00 Folic Acid (Folic Acid) 1 mg DAILY PO Last administered on 03/06/19 09:42; Admin Dose 1 MG; Start 02/22/19 at 09:00 Hydralazine HCl (Apresoline) 75 mg TID PO Last administered on 03/06/19 09:42; Admin Dose 75 MG; Start 02/21/19 at 13:00 Linagliptin (Tradjenta) 5 mg DAILY PO Last administered on 03/06/19 09:42; Admin Dose 5 MG; Start 02/22/19 at 09:00 Metoprolol Succinate (Toprol Xl) 50 mg DAILY PO Last administered on 03/06/19 09:43; Admin Dose 50 MG; Start 02/22/19 at 09:00 Ondansetron HCl (Zofran Odt) 4 mg Q6H PRN ODT NAUSEA AND/OR VOMITING; Start 02/21/19 at 10:00 Diagnostic Test (Pha) (Accu-Chek) 1 ea AC MEALS AND BEDTIME XX Last administered on 03/06/19 11:42; Admin Dose 1 EA; Start 02/21/19 at 11:30 Diagnostic Test (Pha) (Accu-Chek) 1 ea 02 XX ; Start 02/22/19 at 02:00 Insulin Aspart (Novolog Insulin Pen) NOVOLOG *MILD* ALGORITHM WITH MEALS BEDTIME SC Last administered on 03/04/19 11:45; Admin Dose 1 UNIT; Start 02/21/19 at 21:00 Hydralazine HCl (Apresoline) 10 mg Q6H PRN IV SBP >165 Last administered on 03/04/19 18:12; Admin Dose 10 MG; Start 02/21/19 at 19:30 Pantoprazole (Protonix Tab) 40 mg DAILY@06 PO Last administered on 03/06/19 05:53; Admin Dose 40 MG; Start 02/22/19 at 14:30 Heparin Sodium (Porcine) (Heparin (5000 Units/1ml)) 5,000 unit BID SC Last administered on 03/06/19 09:45; Admin Dose 5,000 UNIT; Start 02/22/19 at 21:00 Epoetin Carlos-epbx (Retacrit (Esrd)) 4,000 unit TuThSa@1700 SC Last administered on 03/05/19 17:38; Admin Dose 4,000 UNIT; Start 02/23/19 at 17:00 Fluticasone Propionate (Flonase 0.05% Nasal) 1 spray DAILY NASAL Last administered on 03/06/19at 09:41; Admin Dose 1 SPRAY; Start 02/23/19 at 16:30 Hydralazine HCl (Apresoline) 20 mg Q6H PRN IV ELEVATED SYSTOLIC BP Last administered on 03/04/19at 05:06; Admin Dose 20 MG; Start 02/28/19 at 00:30 ELIANA NEELY MD Mar 06, 2019 12:23
--- NOTE | 2019-03-06 14:04 | CONS ---
Assessment/Plan Assessment/Plan Hospital Course (Demo Recall) 1230 SUBJECTIVE: The patient is in HD, looks comfortable, no fevers overnight. PHYSICAL EXAMINATION: GENERAL: This is an obese, chronically ill-appearing, elderly woman who is awake, in no distress. HEENT: Head traumatic, normocephalic. NECK: Supple. CHEST: Rise symmetrical. Breath sounds clear. HEART: S1, S2. ABDOMEN: Soft, bowel sounds present. EXTREMITIES: Without cyanosis. ASSESSMENT: 1. Status post acute encephalopathy. 2. Aseptic meningitis. 3. Coag-negative staphylococcus bacteremia, consistent with contaminant. 4. History of shingles. 5. End-stage renal disease. 6. Diabetes. 7. Hypertension. PLAN: Stable, neuro rec-s Consultation Date/Type/Reason Admit Date/Time Feb 21, 2019 at 03:02 Initial Consult Date Type of Consult id Requesting Provider: ELIANA NEELY MD Date/Time of Note DATE: 03/06/19 TIME: 14:03 Exam/Review of Systems Exam Vitals Vital Signs Date Temp Pulse Resp B/P (MAP) Pulse Ox O2 O2 Flow FiO2 Time Delivery Rate 03/06/19 89 13:20 03/06/19 98.1 18 139/68 95 Room Air 11:05 (91) 03/03/19 2.0 20:08 03/02/19 28 17:41 Intake and Output 03/05/19 03/05/19 03/06/19 1515:00 23:00 07:00 IntakeIntake Total 200 ml OutputOutput Total 0 ml BalanceBalance 200 ml Results Result Diagram: 03/05/19 0525 03/06/19 0553 Results 24hrs Laboratory Tests Test 03/05/19 17:21 03/05/19 20:42 03/06/19 05:53 03/06/19 07:49 Bedside Glucose 108 112 114 Sodium Level 139 Potassium Level 4.7 Chloride Level 99 Carbon Dioxide Level 25 Anion Gap 15 H Blood Urea Nitrogen 55 H Creatinine 6.59 #H Est Glomerular 6 L Filtrat Rate mL/min Glucose Level 110 Calcium Level 10.3 H Test 03/06/19 11:41 Bedside Glucose 102 Medications Medication Current Medications Calcium Acetate (Phoslo) 1,334 mg WITH MEALS PO Last administered on 03/06/19at 11:43; Admin Dose 1,334 MG; Start 02/21/19 at 12:00 Clopidogrel Bisulfate (plaVIX) 75 mg DAILY PO Last administered on 03/06/19 09:42; Admin Dose 75 MG; Start 02/22/19 at 09:00 Docusate Sodium (Colace) 100 mg DAILY PO Last administered on 03/06/19 09:42; Admin Dose 100 MG; Start 02/22/19 at 09:00 Folic Acid (Folic Acid) 1 mg DAILY PO Last administered on 03/06/19 09:42; Admin Dose 1 MG; Start 02/22/19 at 09:00 Hydralazine HCl (Apresoline) 75 mg TID PO Last administered on 03/06/19 09:42; Admin Dose 75 MG; Start 02/21/19 at 13:00 Linagliptin (Tradjenta) 5 mg DAILY PO Last administered on 03/06/19 09:42; Admin Dose 5 MG; Start 02/22/19 at 09:00 Metoprolol Succinate (Toprol Xl) 50 mg DAILY PO Last administered on 03/06/19 09:43; Admin Dose 50 MG; Start 02/22/19 at 09:00 Ondansetron HCl (Zofran Odt) 4 mg Q6H PRN ODT NAUSEA AND/OR VOMITING; Start 02/21/19 at 10:00 Diagnostic Test (Pha) (Accu-Chek) 1 ea AC MEALS AND BEDTIME XX Last administered on 03/06/19 11:42; Admin Dose 1 EA; Start 02/21/19 at 11:30 Diagnostic Test (Pha) (Accu-Chek) 1 ea 02 XX ; Start 02/22/19 at 02:00 Insulin Aspart (Novolog Insulin Pen) NOVOLOG *MILD* ALGORITHM WITH MEALS BEDTIME SC Last administered on 03/04/19 11:45; Admin Dose 1 UNIT; Start 02/21/19 at 21:00 Hydralazine HCl (Apresoline) 10 mg Q6H PRN IV SBP >165 Last administered on 03/04/19 18:12; Admin Dose 10 MG; Start 02/21/19 at 19:30 Pantoprazole (Protonix Tab) 40 mg DAILY@06 PO Last administered on 03/06/19 05:53; Admin Dose 40 MG; Start 02/22/19 at 14:30 Heparin Sodium (Porcine) (Heparin (5000 Units/1ml)) 5,000 unit BID SC Last administered on 03/06/19 09:45; Admin Dose 5,000 UNIT; Start 02/22/19 at 21:00 Epoetin Carlos-epbx (Retacrit (Esrd)) 4,000 unit TuThSa@1700 SC Last administered on 03/05/19at 17:38; Admin Dose 4,000 UNIT; Start 02/23/19 at 17:00 Fluticasone Propionate (Flonase 0.05% Nasal) 1 spray DAILY NASAL Last administered on 03/06/19 09:41; Admin Dose 1 SPRAY; Start 02/23/19 at 16:30 Hydralazine HCl (Apresoline) 20 mg Q6H PRN IV ELEVATED SYSTOLIC BP Last administered on 03/04/19 05:06; Admin Dose 20 MG; Start 02/28/19 at 00:30 ADEOLA BRYAN NP Mar 06, 2019 14:04
[2019-03-07] VITALS (14 sets, daily range): BP systolic 130–155; BP diastolic 58–76; PULSE 84–89; RESP 18–20
[2019-03-07] MEDS: ACCU-CHEK XX SCH ×5 (02:00→21:00)
[2019-03-07] MEDS: PANTOPRAZOLE (EC) 40 MG TAB PO SCH (05:54)
[2019-03-07] MEDS: INSULIN ASPART [NOVOLOG] 3 ML PEN SC SCH ×4 (07:32→21:00)
[2019-03-07] MEDS: FLUTICASONE 0.05% 16 GM NAS SPRAY NASAL SCH (08:16)
[2019-03-07] MEDS: CLOPIDOGREL 75 MG TAB PO SCH (08:17)
[2019-03-07] MEDS: DOCUSATE SODIUM 100 MG CAP PO SCH (08:17)
[2019-03-07] MEDS: METOPROLOL (XL) 50 MG TAB PO SCH (08:18)
[2019-03-07] MEDS: LINAGLIPTIN 5 MG TABLET PO SCH (08:18)
[2019-03-07] MEDS: FOLIC ACID 1 MG TAB PO SCH (08:18)
[2019-03-07] MEDS: HEPARIN 5,000 UNIT/1 ML VIAL SC SCH ×2 (08:26→23:09)
--- NOTE | 2019-03-07 08:27 | CONS ---
Consult Date/Type/Reason Admit Date/Time Feb 21, 2019 at 03:02 Initial Consult Date 02/25/19 Type of Consultation: cv Requesting Provider: ELIANA NEELY MD Date/Time of Note DATE: 03/07/19 TIME: 08:27 Subjective Interventional cardiology follow-up progress note Subjective: Case discussed with the staff and Telemetry was reviewed. Patient has remained sinus rhythm with ventricular paced. d/w Patient is no longer lethargic but is weak she is out of ICU on tele now She says she is feeling okay denies any chest pain or pressure or palpitation but is very weak Objective: General: no acute distress HEENT: NC/AT. pupils are equal. round. NECK: NO JVD. no stridor. CV: RRR. systolic murmur; no gallop or rubs. PULM: no wheezing or rhonchi. GI: SOFT, NT, ND, no rebound or guarding Extremity: trace B/L LE edema. no clubbing. neuro: awake and alert Psych: calm and pleasant rectal: deferred Derm: Right upper forehead with crusted lesions ,but is improving EKG showed ventricular paced rhythm Head CT done February 27, 2019 shows: 1. Mild generalized cerebral and cerebellar volume loss and nonspecific chronic microvascular ischemic disease. 2. No evidence of intracranial masses hemorrhages or midline shift. 3. Right periorbital soft tissue swelling. No calvarial fractures. Objective Vitals Vital Signs Date Temp Pulse Resp B/P (MAP) Pulse Ox O2 O2 Flow FiO2 Time Delivery Rate 03/07/19 97.6 84 18 149/66 98 07:36 (93) 03/06/19 Room Air 15:10 03/03/19 2.0 20:08 Intake and Output 03/06/19 03/06/19 03/07/19 1515:00 23:00 07:00 IntakeIntake Total 300 ml OutputOutput Total 2600 ml 0 ml BalanceBalance -2600 ml 300 ml Results/Medications Result Diagram: 03/07/19 0449 03/07/199 Results 24 hrs Laboratory Tests Test 03/06/19 11:41 03/06/19 21:15 03/07/19 04:49 03/07/19 07:31 Bedside Glucose 102 108 96 White Blood Count 6.0 Red Blood Count 2.67 L Hemoglobin 8.8 L Hematocrit 28.4 L Mean Corpuscular 106.4 H Volume Mean Corpuscular 33.0 Hemoglobin Mean Corpuscular 31.0 L Hemoglobin Concent Red Cell Distribution 22.2 H Width Platelet Count 300 Mean Platelet Volume 10.5 H Immature Granulocytes 1.200 H % Neutrophils % 67.7 Lymphocytes % 7.1 L Monocytes % 23.2 H Eosinophils % 0.3 Basophils % 0.5 Nucleated Red Blood 1.2 H Cells % Immature Granulocytes 0.070 H # Neutrophils # 4.1 Lymphocytes # 0.4 L Monocytes # 1.4 H Eosinophils # 0.0 Basophils # 0.0 Nucleated Red Blood 0.1 H Cells # Sodium Level 138 Potassium Level 4.2 Chloride Level 97 Carbon Dioxide Level 28 Anion Gap 13 Blood Urea Nitrogen 38 #H Creatinine 5.11 H Est Glomerular Filtrat 8 L Rate mL/min Glucose Level 104 Calcium Level 10.0 Home Meds Active Scripts Hydrocodone/Acetaminophen (Bond 5-325 Tablet) 1 Each Tablet, 1 TAB PO TID PRN for PAIN, #12 TAB Prov:CHIQUITA JAVED MD 02/04/19 Ondansetron (Ondansetron Odt) 4 Mg Tab.rapdis, 4 MG PO Q6H PRN for NAUSEA AND/OR VOMITING, #10 TAB Prov:MK DUGGAN MD 01/28/19 Loperamide Hcl* (Imodium*) 2 Mg Capsule, 2 MG PO .AFTER EA LOOSE BM PRN for DIARRHEA, #20 TAB Prov:MK DUGGAN MD 01/28/19 Ondansetron (Ondansetron Odt) 4 Mg Tab.rapdis, 4 MG PO Q6H PRN for NAUSEA AND/OR VOMITING, #10 TAB Prov:TON ALMEIDA PA-C 01/16/19 Reported Medications Multivit/Ca Carb/B Cmplx/Fa* (Shanti-Horacio*) 1 Tab Tab, 1 TAB PO DAILY for 30 Days, #30 02/21/19 Clopidogrel Bisulfate (Clopidogrel) 75 Mg Tablet, 75 MG PO DAILY for 60 Days, #60 TAB 02/21/19 Gabapentin* (Gabapentin*) 100 Mg Capsule, 100 MG PO BID for 30 Days, #60 02/21/19 Diphenhydramine Hcl (BANOPHEN) 50 Mg Capsule, 50 MG PO DAILY PRN for ALLERGIC REACTION 7/18/19 valAcyclovir Hcl* (valACYclovir Hcl*) 500 Mg Tablet, 1000 MG PO TID, TAB 02/21/19 Hydralazine Hcl* (Hydralazine Hcl*) 25 Mg Tab, 75 MG PO TID, #90 TAB 10/12/18 Linagliptin (TRADJENTA) 5 Mg Tablet, 5 MG PO DAILY, TAB 10/12/18 Metoprolol Succinate* (Toprol XL*) 50 Mg Tab.er.24h, 50 MG PO DAILY, #30 TAB 10/12/18 Calcium Acetate* (Calcium Acetate*) 667 Mg Capsule, 1334 MG PO WITH MEALS, #60 CAP 10/12/18 Folic Acid* (Folic Acid*) 1 Mg Tablet, 1 MG PO DAILY, TAB 10/12/18 Docusate Sodium* (Colace*) 100 Mg Capsule, 100 MG PO DAILY, #30 CAP 10/12/18 Pantoprazole* (Protonix*) 40 Mg Tablet.dr, 40 MG PO DAILY, TAB 10/04/18 Cholecalciferol* (Vitamin D*) 400 Unit Tablet, 400 UNIT PO BID, TAB 10/04/18 Medications Current Medications Clopidogrel Bisulfate (plaVIX) 75 mg DAILY PO Last administered on 03/06/19 09:42; Admin Dose 75 MG; Start 02/22/19 at 09:00 Docusate Sodium (Colace) 100 mg DAILY PO Last administered on 03/06/19at 09:42; Admin Dose 100 MG; Start 02/22/19 at 09:00 Folic Acid (Folic Acid) 1 mg DAILY PO Last administered on 03/06/19 09:42; Admin Dose 1 MG; Start 02/22/19 at 09:00 Hydralazine HCl (Apresoline) 75 mg TID PO Last administered on 03/06/19at 21:16; Admin Dose 75 MG; Start 02/21/19 at 13:00 Linagliptin (Tradjenta) 5 mg DAILY PO Last administered on 03/06/19 09:42; Admin Dose 5 MG; Start 02/22/19 at 09:00 Metoprolol Succinate (Toprol Xl) 50 mg DAILY PO Last administered on 03/06/19 09:43; Admin Dose 50 MG; Start 02/22/19 at 09:00 Ondansetron HCl (Zofran Odt) 4 mg Q6H PRN ODT NAUSEA AND/OR VOMITING; Start 02/21/19 at 10:00 Diagnostic Test (Pha) (Accu-Chek) 1 ea AC MEALS AND BEDTIME XX Last administered on 03/07/19 07:32; Admin Dose 1 EA; Start 02/21/19 at 11:30 Diagnostic Test (Pha) (Accu-Chek) 1 ea 02 XX ; Start 02/22/19 at 02:00 Insulin Aspart (Novolog Insulin Pen) NOVOLOG *MILD* ALGORITHM WITH MEALS BEDTIME SC Last administered on 03/04/19 11:45; Admin Dose 1 UNIT; Start 02/21/19 at 21:00 Hydralazine HCl (Apresoline) 10 mg Q6H PRN IV SBP >165 Last administered on 03/04/19 18:12; Admin Dose 10 MG; Start 02/21/19 at 19:30 Pantoprazole (Protonix Tab) 40 mg DAILY@06 PO Last administered on 03/07/19 05:54; Admin Dose 40 MG; Start 02/22/19 at 14:30 Heparin Sodium (Porcine) (Heparin (5000 Units/1ml)) 5,000 unit BID SC Last ad ministered on 03/06/19 21:23; Admin Dose 5,000 UNIT; Start 02/22/19 at 21:00 Epoetin Carlos-epbx (Retacrit (Esrd)) 4,000 unit TuThSa@1700 SC Last administered on 03/05/19 17:38; Admin Dose 4,000 UNIT; Start 02/23/19 at 17:00 Fluticasone Propionate (Flonase 0.05% Nasal) 1 spray DAILY NASAL Last adm inistered on 03/06/19 09:41; Admin Dose 1 SPRAY; Start 02/23/19 at 16:30 Hydralazine HCl (Apresoline) 20 mg Q6H PRN IV ELEVATED SYSTOLIC BP Last administered on 03/04/19 05:06; Admin Dose 20 MG; Start 02/28/19 at 00:30 Assessment/Plan Hospital Course (Demo Recall) 1. Complete heart block/s/p normal functioning permanent pacemaker 2. Episode of reported bradycardia by nurses: Most likely secondary to PVCs. Will monitor on telemetry for any significant other and arrhythmia or pacemaker malfunction 3. Herpes zoster infection 4. Renal failure on dialysis 5. Hypertension 6. History of diabetes: Coronary good control 7. Ventricular arrhythmias and frequent PVCs 8. Acute encephalopathy and altered level of consciousness: improving now 9. Debility Recommendation: Patient will monitor on telemetry. Hemodialysis to be continued as per renal Antibiotic/antiviral management as per internal medicine and ID recommendations Follow-up with neurology recommendations. f/u CSF results cont betablocker Consider acute rehab evaluation Thank you his referral. We will continue to follow along with you YOSEPH CARCAMO MD [facility] YOSEPH CARCAMO MD Mar 07, 2019 08:27
--- NOTE | 2019-03-07 10:11 | QN ---
Documentation Comment pt doing better dc to snif ELIANA NEELY MD Mar 07, 2019 10:11
--- NOTE | 2019-03-07 10:18 | PDOCDIS ---
Discharge Instructions DIAGNOSIS Discharge Diagnosis aseptic menigitis ESRD CONDITION [id number] Patient Condition: [id number] Fair HOME CARE INSTRUCTIONS: [id number] Special Diet: [id number] RENAL DIET ACTIVITY: [id number] Activity Restrictions: [id number] Slowly Increase Activity Rest between Activity Avoid heavy lifting FOLLOW UP/APPOINTMENTS Follow-up Plan FU pcp in 1-2 week fu ESRD tts ELIANA NEELY MD Mar 07, 2019 10:18
--- NOTE | 2019-03-07 11:00 | CONS ---
Consult Date/Type/Reason Admit Date/Time Feb 21, 2019 at 03:02 Initial Consult Date 02/28/19 Type of Consult Pulmonary Requesting Provider: ELIANA NEELY MD Date/Time of Note DATE: 03/07/19 TIME: 10:59 Subjective Appears comfortable no respiratory distress Objective Vital Signs Date Temp Pulse Resp B/P (MAP) Pulse Ox O2 O2 Flow FiO2 Time Delivery Rate 03/07/19 97.6 84 18 149/66 98 07:36 (93) 03/06/19 Room Air 15:10 03/03/19 2.0 20:08 Intake and Output 03/06/19 03/06/19 03/07/19 1515:00 23:00 07:00 IntakeIntake Total 300 ml OutputOutput Total 2600 ml 0 ml BalanceBalance -2600 ml 300 ml Exam GENERAL: Well-nourished well-developed lady comfortable at rest VITAL SIGNS: per chart NECK: Supple. No JVD or lymphadenopathy. CARDIAC EXAM: S1, S2. No added sounds or murmurs. CHEST: clear bilaterally, No added sounds, rales or wheezes ABDOMEN: Soft, nontender. No guarding or rebound. EXTREMITIES: No cyanosis, clubbing or edema. NEUROLOGIC: Generalized weakness. No focal deficits. Vent Setting Fraction of Inspired Oxygen pe: 28 Results/Medications Result Diagram: 03/07/1944803/07/19448 Results 24 hrs Laboratory Tests Test 03/06/19 11:41 03/06/19 21:15 03/07/19 04:49 03/07/19 07:31 Bedside Glucose 102 108 96 White Blood Count 6.0 Red Blood Count 2.67 L Hemoglobin 8.8 L Hematocrit 28.4 L Mean Corpuscular 106.4 H Volume Mean Corpuscular 33.0 Hemoglobin Mean Corpuscular 31.0 L Hemoglobin Concent Red Cell Distribution 22.2 H Width Platelet Count 300 Mean Platelet Volume 10.5 H Immature Granulocytes 1.200 H % Neutrophils % 67.7 Lymphocytes % 7.1 L Monocytes % 23.2 H Eosinophils % 0.3 Basophils % 0.5 Nucleated Red Blood 1.2 H Cells % Immature Granulocytes 0.070 H # Neutrophils # 4.1 Lymphocytes # 0.4 L Monocytes # 1.4 H Eosinophils # 0.0 Basophils # 0.0 Nucleated Red Blood 0.1 H Cells # Sodium Level 138 Potassium Level 4.2 Chloride Level 97 Carbon Dioxide Level 28 Anion Gap 13 Blood Urea Nitrogen 38 #H Creatinine 5.11 H Est Glomerular Filtrat 8 L Rate mL/min Glucose Level 104 Calcium Level 10.0 Medications Current Medications Clopidogrel Bisulfate (plaVIX) 75 mg DAILY PO Last administered on 03/07/19 08:17; Admin Dose 75 MG; Start 02/22/19 at 09:00 Docusate Sodium (Colace) 100 mg DAILY PO Last administered on 03/07/19 08:17; Admin Dose 100 MG; Start 02/22/19 at 09:00 Folic Acid (Folic Acid) 1 mg DAILY PO Last administered on 03/07/19 08:18; Admin Dose 1 MG; Start 02/22/19 at 09:00 Hydralazine HCl (Apresoline) 75 mg TID PO Last administered on 03/07/19 08:17; Admin Dose 75 MG; Start 02/21/19 at 13:00 Linagliptin (Tradjenta) 5 mg DAILY PO Last administered on 03/07/19 08:18; Admin Dose 5 MG; Start 02/22/19 at 09:00 Metoprolol Succinate (Toprol Xl) 50 mg DAILY PO Last administered on 03/07/19 08:18; Admin Dose 50 MG; Start 02/22/19 at 09:00 Ondansetron HCl (Zofran Odt) 4 mg Q6H PRN ODT NAUSEA AND/OR VOMITING; Start 02/21/19 at 10:00 Diagnostic Test (Pha) (Accu-Chek) 1 ea AC MEALS AND BEDTIME XX Last administered on 03/07/19 07:32; Admin Dose 1 EA; Start 02/21/19 at 11:30 Diagnostic Test (Pha) (Accu-Chek) 1 ea 02 XX ; Start 02/22/19 at 02:00 Insulin Aspart (Novolog Insulin Pen) NOVOLOG *MILD* ALGORITHM WITH MEALS BEDT LINNEA SC Last administered on 03/04/19 11:45; Admin Dose 1 UNIT; Start 02/21/19 at 21:00 Hydralazine HCl (Apresoline) 10 mg Q6H PRN IV SBP >165 Last administered on 03/04/19 18:12; Admin Dose 10 MG; Start 02/21/19 at 19:30 Pantoprazole (Protonix Tab) 40 mg DAILY@06 PO Last administered on 03/07/19 05:54; Admin Dose 40 MG; Start 02/22/19 at 14:30 Heparin Sodium (Porcine) (Heparin (5000 Units/1ml)) 5,000 unit BID SC Last administered on 03/07/19 08:26; Admin Dose 5,000 UNIT; Start 02/22/19 at 21:00 Epoetin Carlos-epbx (Retacrit (Esrd)) 4,000 unit TuThSa@1700 SC Last administered on 03/05/19 17:38; Admin Dose 4,000 UNIT; Start 02/23/19 at 17:00 Fluticasone Propionate (Flonase 0.05% Nasal) 1 spray DAILY NASAL Last administered on 03/07/19 08:16; Admin Dose 1 SPRAY; Start 02/23/19 at 16:30 Hydralazine HCl (Apresoline) 20 mg Q6H PRN IV ELEVATED SYSTOLIC BP Last administered on 03/04/19 05:06; Admin Dose 20 MG; Start 02/28/19 at 00:30 Assessment/Plan Hospital Course (Demo Recall) IMP: 1. resolving encephalopathy 2. ESRD on HD 3. History of SSS s/p per 4. Chronic anemia. 5. History of hypertension 6. Atelectasis with moderate pericardial effusion RECS: 1. Neuro work-up in progress 2. Aspiration precautions 3. Feeding as tolerated 4. Aspiration precautions 5. Limit sedatives/narcotics 6 Cardiology recommendations regarding pericardial effusion, likely secondary to end-stage renal failure clinically no evidence of tamponade. Agree with DC planning. ALYSSA SERRANO MD, [facility] Mar 07, 2019 11:00
--- NOTE | 2019-03-07 15:37 | CONS ---
Assessment/Plan Assessment/Plan Hospital Course (Demo Recall) SUBJECTIVE: No events, looks comfortable, no fevers overnight. PHYSICAL EXAMINATION: GENERAL: This is an obese, chronically ill-appearing, elderly woman who is awake, in no distress. HEENT: Head traumatic, normocephalic. NECK: Supple. CHEST: Rise symmetrical. Breath sounds clear. HEART: S1, S2. ABDOMEN: Soft, bowel sounds present. EXTREMITIES: Without cyanosis. ASSESSMENT: 1. Status post acute encephalopathy. 2. Aseptic meningitis. 3. Coag-negative staphylococcus bacteremia, consistent with contaminant. 4. History of shingles. 5. End-stage renal disease. 6. Diabetes. 7. Hypertension. PLAN: Stable, pending dc arrangements Consultation Date/Type/Reason Admit Date/Time Feb 21, 2019 at 03:02 Initial Consult Date Type of Consult id Requesting Provider: ELIANA NEELY MD Date/Time of Note DATE: 03/07/19 TIME: 15:36 Exam/Review of Systems Exam Vitals Vital Signs Date Temp Pulse Resp B/P (MAP) Pulse Ox O2 O2 Flow FiO2 Time Delivery Rate 03/07/19 98.1 84 18 130/61 96 11:48 (84) 03/06/19 Room Air 15:10 03/03/19 2.0 20:08 Intake and Output 03/06/19 03/06/19 03/07/19 1515:00 23:00 07:00 IntakeIntake Total 300 ml OutputOutput Total 2600 ml 0 ml BalanceBalance -2600 ml 300 ml Results Result Diagram: 03/07/19 0449 03/07/19 0449 Results 24hrs Laboratory Tests Test 03/06/19 21:15 03/07/19 04:49 03/07/19 07:31 03/07/19 11:33 Bedside Glucose 108 96 124 White Blood Count 6.0 Red Blood Count 2.67 L Hemoglobin 8.8 L Hematocrit 28.4 L Mean Corpuscular Volume 106.4 H Mean Corpuscular 33.0 Hemoglobin Mean Corpuscular 31.0 L Hemoglobin Concent Red Cell Distribution 22.2 H Width Platelet Count 300 Mean Platelet Volume 10.5 H Immature Granulocytes % 1.200 H Neutrophils % 67.7 Lymphocytes % 7.1 L Monocytes % 23.2 H Eosinophils % 0.3 Basophils % 0.5 Nucleated Red Blood 1.2 H Cells % Immature Granulocytes # 0.070 H Neutrophils # 4.1 Lymphocytes # 0.4 L Monocytes # 1.4 H Eosinophils # 0.0 Basophils # 0.0 Nucleated Red Blood 0.1 H Cells # Sodium Level 138 Potassium Level 4.2 Chloride Level 97 Carbon Dioxide Level 28 Anion Gap 13 Blood Urea Nitrogen 38 #H Creatinine 5.11 H Est Glomerular Filtrat 8 L Rate mL/min Glucose Level 104 Calcium Level 10.0 Medications Medication Current Medications Clopidogrel Bisulfate (plaVIX) 75 mg DAILY PO Last administered on 03/07/19 08:17; Admin Dose 75 MG; Start 02/22/19 at 09:00 Docusate Sodium (Colace) 100 mg DAILY PO Last administered on 03/07/19 08:17; Admin Dose 100 MG; Start 02/22/19 at 09:00 Folic Acid (Folic Acid) 1 mg DAILY PO Last administered on 03/07/19 08:18; Admin Dose 1 MG; Start 02/22/19 at 09:00 Hydralazine HCl (Apresoline) 75 mg TID PO Last administered on 03/07/19 08:17; Admin Dose 75 MG; Start 02/21/19 at 13:00 Linagliptin (Tradjenta) 5 mg DAILY PO Last administered on 03/07/19 08:18; Admin Dose 5 MG; Start 02/22/19 at 09:00 Metoprolol Succinate (Toprol Xl) 50 mg DAILY PO Last administered on 03/07/19 08:18; Admin Dose 50 MG; Start 02/22/19 at 09:00 Ondansetron HCl (Zofran Odt) 4 mg Q6H PRN ODT NAUSEA AND/OR VOMITING; Start 02/21/19 at 10:00 Diagnostic Test (Pha) (Accu-Chek) 1 ea AC MEALS AND BEDTIME XX Last administered on 03/07/19 11:34; Admin Dose 1 EA; Start 02/21/19 at 11:30 Diagnostic Test (Pha) (Accu-Chek) 1 ea 02 XX ; Start 02/22/19 at 02:00 Insulin Aspart (Novolog Insulin Pen) NOVOLOG *MILD* ALGORITHM WITH MEALS BEDTIME SC Last administered on 03/04/19 11:45; Admin Dose 1 UNIT; Start at 21:00 Hydralazine HCl (Apresoline) 10 mg Q6H PRN IV SBP >165 Last administered on 03/04/19 18:12; Admin Dose 10 MG; Start 02/21/19 at 19:30 Pantoprazole (Protonix Tab) 40 mg DAILY@06 PO Last administered on 03/07/19 05:54; Admin Dose 40 MG; Start 02/22/19 at 14:30 Heparin Sodium (Porcine) (Heparin (5000 Units/1ml)) 5,000 unit BID SC Last administered on 03/07/19 08:26; Admin Dose 5,000 UNIT; Start 02/22/19 at 21:00 Epoetin Carlos-epbx (Retacrit (Esrd)) 4,000 unit TuThSa@1700 SC Last administered on 03/05/19 17:38; Admin Dose 4,000 UNIT; Start 02/23/19 at 17:00 Fluticasone Propionate (Flonase 0.05% Nasal) 1 spray DAILY NASAL Last administered on 03/07/19 08:16; Admin Dose 1 SPRAY; Start 02/23/19 at 16:30 Hydralazine HCl (Apresoline) 20 mg Q6H PRN IV ELEVATED SYSTOLIC BP Last administered on 03/04/19 05:06; Admin Dose 20 MG; Start 02/28/19 at 00:30 ADEOLA BRYAN NP Mar 07, 2019 15:37
[2019-03-07] MEDS: EPOETIN ALFA-EPBX (ESRD) 4,000 UNIT/ML VIAL SC SCH (17:47)
[2019-03-08] VITALS: BP 135/67; PULSE 78; RESP 19
[2019-03-08] MEDS: ACCU-CHEK XX SCH (02:00)
[2019-03-08 03:58] VITALS: BP 131/68; PULSE 80; RESP 19
[2019-03-08] MEDS: PANTOPRAZOLE (EC) 40 MG TAB PO SCH (06:23)
--- NOTE | 2019-03-08 08:17 | CONS ---
Consult Date/Type/Reason Admit Date/Time Feb 21, 2019 at 03:02 Initial Consult Date 02/25/19 Type of Consultation: cv Requesting Provider: ELIANA NEELY MD Date/Time of Note DATE: 03/08/19 TIME: 08:16 Subjective Interventional cardiology follow-up progress note Subjective: Case discussed with the staff and Telemetry was reviewed. Patient has remained sinus rhythm with ventricular paced. Patient is no longer lethargic but is weak she is out of ICU on tele now She says she is feeling okay denies any chest pain or pressure or palpitation but is very weak Objective: General: no acute distress HEENT: NC/AT. pupils are equal. round. NECK: NO JVD. no stridor. CV: RRR. systolic murmur; no gallop or rubs. PULM: no wheezing or rhonchi. GI: SOFT, NT, ND, no rebound or guarding Extremity: trace B/L LE edema. no clubbing. neuro: awake and alert Psych: calm and pleasant rectal: deferred Derm: Right upper forehead with crusted lesions ,but is improving EKG showed ventricular paced rhythm Head CT done February 27, 2019 shows: 1. Mild generalized cerebral and cerebellar volume loss and nonspecific chronic microvascular ischemic disease. 2. No evidence of intracranial masses hemorrhages or midline shift. 3. Right periorbital soft tissue swelling. No calvarial fractures. Objective Vitals Vital Signs Date Temp Pulse Resp B/P (MAP) Pulse Ox O2 O2 Flow FiO2 Time Delivery Rate 03/08/19 98.1 80 19 131/68 97 03:58 (89) 03/08/19 21 00:46 03/07/19 Room Air 20:30 Intake and Output 03/07/19 03/07/19 03/08/19 1515:00 23:00 07:00 IntakeIntake Total 450 ml OutputOutput Total 1400 ml BalanceBalance -950 ml Results/Medications Result Diagram: 03/07/19 0449 03/07/19 0449 Results 24 hrs Laboratory Tests Test 03/07/19 11:33 03/07/19 17:09 03/07/19 21:14 Bedside Glucose 124 108 102 Home Meds Active Scripts Hydrocodone/Acetaminophen ([place] 5-325 Tablet) 1 Each Tablet, 1 TAB PO TID PRN for PAIN, #12 TAB Prov:HOOKS-HI,CHIQUITA MD 02/04/19 Ondansetron (Ondansetron Odt) 4 Mg Tab.rapdis, 4 MG PO Q6H PRN for NAUSEA AND/OR VOMITING, #10 TAB Prov:MK DUGGAN MD 01/28/19 Loperamide Hcl* (Imodium*) 2 Mg Capsule, 2 MG PO .AFTER EA LOOSE BM PRN for DIARRHEA, #20 TAB Prov:MK DUGGAN MD 01/28/19 Ondansetron (Ondansetron Odt) 4 Mg Tab.rapdis, 4 MG PO Q6H PRN for NAUSEA AND/OR VOMITING, #10 TAB Prov:TON ALMEIDA PA-C 01/16/19 Reported Medications Multivit/Ca Carb/B Cmplx/Fa* (Shanti-Horacio*) 1 Tab Tab, 1 TAB PO DAILY for 30 Days, #30 02/21/19 Clopidogrel Bisulfate (Clopidogrel) 75 Mg Tablet, 75 MG PO DAILY for 60 Days, #60 TAB 02/21/19 Gabapentin* (Gabapentin*) 100 Mg Capsule, 100 MG PO BID for 30 Days, #60 02/21/19 Diphenhydramine Hcl (BANOPHEN) 50 Mg Capsule, 50 MG PO DAILY PRN for ALLERGIC REACTION 02/21/19 valAcyclovir Hcl* (valACYclovir Hcl*) 500 Mg Tablet, 1000 MG PO TID, TAB 02/21/19 Hydralazine Hcl* (Hydralazine Hcl*) 25 Mg Tab, 75 MG PO TID, #90 TAB 10/12/18 Linagliptin (TRADJENTA) 5 Mg Tablet, 5 MG PO DAILY, TAB 10/12/18 Metoprolol Succinate* (Toprol XL*) 50 Mg Tab.er.24h, 50 MG PO DAILY, #30 TAB 10/12/18 Calcium Acetate* (Calcium Acetate*) 667 Mg Capsule, 1334 MG PO WITH MEALS, #60 CAP 10/12/18 Folic Acid* (Folic Acid*) 1 Mg Tablet, 1 MG PO DAILY, TAB 10/12/18 Docusate Sodium* (Colace*) 100 Mg Capsule, 100 MG PO DAILY, #30 CAP 10/12/18 Pantoprazole* (Protonix*) 40 Mg Tablet.dr, 40 MG PO DAILY, TAB 10/04/18 Cholecalciferol* (Vitamin D*) 400 Unit Tablet, 400 UNIT PO BID, TAB 10/04/18 Medications Current Medications Clopidogrel Bisulfate (plaVIX) 75 mg DAILY PO Last administered on 03/07/19 08:17; Admin Dose 75 MG; Start 02/22/19 at 09:00 Docusate Sodium (Colace) 100 mg DAILY PO Last administered on 03/07/19 08:17; Admin Dose 100 MG; Start 02/22/19 at 09:00 Folic Acid (Folic Acid) 1 mg DAILY PO Last administered on 03/07/19 08:18; Admin Dose 1 MG; Start 02/22/19 at 09:00 Hydralazine HCl (Apresoline) 75 mg TID PO Last administered on 03/07/19 23:01; Admin Dose 75 MG; Start 02/21/19 at 13:00 Linagliptin (Tradjenta) 5 mg DAILY PO Last administered on 03/07/19 08:18; Admin Dose 5 MG; Start 02/22/19 at 09:00 Metoprolol Succinate (Toprol Xl) 50 mg DAILY PO Last administered on 03/07/19 08:18; Admin Dose 50 MG; Start 02/22/19 at 09:00 Ondansetron HCl (Zofran Odt) 4 mg Q6H PRN ODT NAUSEA AND/OR VOMITING; Start 02/21/19 at 10:00 Diagnostic Test (Pha) (Accu-Chek) 1 ea AC MEALS AND BEDTIME XX Last administered on 03/07/19 17:34; Admin Dose 1 EA; Start 02/21/19 at 11:30 Diagnostic Test (Pha) (Accu-Chek) 1 ea 02 XX ; Start 02/22/19 at 02:00 Insulin Aspart (Novolog Insulin Pen) NOVOLOG *MILD* ALGORITHM WITH MEALS BEDTIME SC Last administered on 03/04/19 11:45; Admin Dose 1 UNIT; Start 02/21/19 at 21:00 Hydralazine HCl (Apresoline) 10 mg Q6H PRN IV SBP >165 Last administered on 03/04/19 18:12; Admin Dose 10 MG; Start 02/21/19 at 19:30 Pantoprazole (Protonix Tab) 40 mg DAILY@06 PO Last administered on 03/08/19 06 :23; Admin Dose 40 MG; Start 02/22/19 at 14:30 Heparin Sodium (Porcine) (Heparin (5000 Units/1ml)) 5,000 unit BID SC Last administered on 03/07/19 23:09; Admin Dose 5,000 UNIT; Start 02/22/19 at 21:00 Epoetin Carlos-epbx (Retacrit (Esrd)) 4,000 unit TuThSa@1700 SC Last administered on 03/07/19 17:47; Admin Dose 4,000 UNIT; Start 02/23/19 at 17:00 Fluticasone Propionate (Flonase 0.05% Nasal) 1 spray DAILY NASAL Last administered on 03/07/19 08:16; Admin Dose 1 SPRAY; Start 02/23/19 at 16:30 Hydralazine HCl (Apresoline) 20 mg Q6H PRN IV ELEVATED SYSTOLIC BP Last administered on 03/04/19 05:06; Admin Dose 20 MG; Start 02/28/19 at 00:30 Assessment/Plan Hospital Course (Demo Recall) 1. Complete heart block/s/p normal functioning permanent pacemaker 2. Episode of reported bradycardia by nurses: Most likely secondary to PVCs. Will monitor on telemetry for any significant other and arrhythmia or pacemaker malfunction 3. Herpes zoster infection 4. Renal failure on dialysis 5. Hypertension 6. History of diabetes: Coronary good control 7. Ventricular arrhythmias and frequent PVCs 8. Acute encephalopathy and altered level of consciousness: improving now 9. Debility Recommendation: Patient will monitor on telemetry. Hemodialysis to be continued as per renal Antibiotic/antiviral management as per internal medicine and ID recommendations Follow-up with neurology recommendations. f/u CSF results cont betablocker dc planning to SNF is in process Thank you his referral. YOSEPH CARCAMO MD [facility] YOSEPH CARCAMO MD Mar 08, 2019 08:17
--- NOTE | 2019-03-12 18:48 | DS ---
DATE OF ADMISSION: 02/21/2019 DATE OF DISCHARGE: 03/08/2019 HISTORY OF PRESENTING ILLNESS AND HOSPITAL COURSE: This is a 68-year-old female well known to our service with a past medical history of end-stage renal disease on hemodialysis Monday, and Monday, hypertension, diabetes, pacemaker placement, CHF, pneumonia, multiple admissions in the past secondary to pneumonia, presented to ED, brought in by the family complaining of increased lethargy for 2 to 3 days. According to the patient, she started having herpes lesion around her right eye 3 weeks ago. She has been treated with acyclovir for 3 weeks. She intermittently was having headache in 1 to 2 weeks. She has been noted to have increased lethargy. According to the , she was sleepy and was brought into the emergency department for further evaluation. On admission, the patient denied any neck pain, any abdominal pain, nausea, vomiting, diarrhea. Vital signs were stable. White count was 11. Lactic acid was checked and was negative. CT of the head showed no acute findings. The patient was given azithromycin and Rocephin for pneumonia and was admitted for further management. The patient was admitted to telemetry unit. ID was consulted on admission. They did not think that the patient had meningitis. They wanted to continue with antibiotics which the patient was receiving which was valacyclovir and continue with Rocephin and azithromycin. The patient was continued on hemodialysis during the hospitalization stay. Blood cultures were done. One came out positive for coagulase negative staph; however, repeats were negative. However during the hospitalization, the patient's condition was not improving. All of a sudden, the patient became very obtunded. Code stroke was called on 03/02/2019. The patient was groaning, did not open eyes to sternal rub. CT of the head was done again which was negative for any acute intracranial pathology. CTA was also done. This was essentially negative. The patient was seen by neurology consultation and it was initially thought that probably the patient had valacyclovir toxicity versus herpes encephalitis. The patient was transferred to ICU. The patient could not get an MRI since patient had a pacemaker. The patient was continued on hemodialysis since the patient's valacyclovir was dialyzable. Pulmonary was also consulted; however, there was no need of patient maintaining the airway. EEG was also done that showed diffuse slowing. The patient also had lumbar puncture that showed an HSV DNA nondetected; however showed 15 WBCs, 0 RBC, 95 glucose and 32 protein consistent with aseptic meningitis. It was concluded that the patient was partially treated for aseptic meningitis. The patient was started on IV acyclovir. The patient was getting regular dialysis. The patient's mental condition completely got better. She was answering appropriately. Her encephalopathy resolved. She was transferred to telemetry and continued on hemodialysis . The patient was started on physical therapy; however, she was too weak and currently will be transferred to [facility] for continued rehabilitation. FINAL DISCHARGE DIAGNOSES: 1. Acute mental status likely encephalopathy due to meds versus aseptic meningitis, herpes zoster. HSV PCR was negative. EEG showed slowing. 2. Headaches with history of herpes likely secondary to #1. 3. Basilar opacity with pneumonia. 4. End-stage renal disease on hemodialysis. 5. Left lower extremity edema and anasarca. 6. Hypertension. 7. Diabetes. 8. Hyperlipidemia. 9. History of ovarian tumor. 10. Overweight. 11. Parasinus disease. 12. Right arm edema, negative for deep venous thrombosis. DISCHARGE CONDITION: Stable. DISCHARGE DIET: Soft. DISCHARGE MEDICATIONS: Continue with home medications. The patient had completed the course of acyclovir. Continue with: 1. PhosLo 1334 with meals. 2. Plavix 75. 3. Colace. 4. Folic acid. 5. Hydralazine 75 t.i.d. 6. Tradjenta 5. 7. Metoprolol 50. 8. Zofran. 9. Insulin. 10. Pantoprazole. 11. Epogen 4000 Monday, , Monday. 12. Flonase. FOLLOWUP: The patient was instructed to follow up with PCP in 1 to 2 weeks. Continue with hemodialysis Monday, and Monday and also follow up with ID in 2 to 3 weeks. Dictated By: ELIANA GOMEZ/VAL Conf#: [id number] DID#: [id number] CC: JEFF RAMOS MD; ALYSSA SERRANO MD;*EndCC* MTDD
== END 2019-03-08 08:05 | DRG 865 ==
LOC: E/R 23:27 → TEL 02-21 03:02 → CANRESERV 02-21 06:58 → 2NE 02-22 18:18 → TEL 02-25 17:17 → ICU 02-27 17:59 → 6WM 03-04 18:40
PROVIDERS: ADMIT Internal Medicine Nephrology; ATTEND Internal Medicine Nephrology
PROC: 5A1D70Z Performance of Urinary Filtration, Intermittent, Less than 6 Hours Per Day (ICD-10-PCS; 2019-02-21)
PROC: 009U3ZX Drainage of Spinal Canal, Percutaneous Approach, Diagnostic (ICD-10-PCS; principal; 2019-02-28)
PROC: B01BZZZ Fluoroscopy of Spinal Cord (ICD-10-PCS; 2019-02-28)
DX: B02.8 Zoster with other complications (principal); J18.9 Pneumonia, unspecified organism; N18.6 End stage renal disease; G92 Toxic encephalopathy; G03.0 Nonpyogenic meningitis; I13.0 Hypertensive heart and chronic kidney disease with heart failure and stage 1 through stage 4 chronic kidney disease, or unspecified chronic kidney disease; G93.40 Encephalopathy, unspecified; I44.2 Atrioventricular block, complete; B19.10 Unspecified viral hepatitis B without hepatic coma; E11.22 Type 2 diabetes mellitus with diabetic chronic kidney disease; I50.9 Heart failure, unspecified; Z99.2 Dependence on renal dialysis; R60.9 Edema, unspecified; E78.5 Hyperlipidemia, unspecified; I25.10 Atherosclerotic heart disease of native coronary artery without angina pectoris; Z68.29 Body mass index [BMI] 29.0-29.9, adult; D72.829 Elevated white blood cell count, unspecified; Z95.0 Presence of cardiac pacemaker; Z85.43 Personal history of malignant neoplasm of ovary; Z90.710 Acquired absence of both cervix and uterus; E78.00 Pure hypercholesterolemia, unspecified; D63.1 Anemia in chronic kidney disease; E66.01 Morbid (severe) obesity due to excess calories; I49.3 Ventricular premature depolarization; T42.6X5A Adverse effect of other antiepileptic and sedative-hypnotic drugs, initial encounter; Y92.239 Unspecified place in hospital as the place of occurrence of the external cause; T37.5X5A Adverse effect of antiviral drugs, initial encounter; J32.9 Chronic sinusitis, unspecified; M79.2 Neuralgia and neuritis, unspecified
CPT/HCPCS: 36415; 36600; 70450; 70486; 70496; 70498; 71045; 71250; 74018; 80048; 80053; 80061; 80202; 80307; 82140; 82550; 82553; 82803; 82945; 82962; 83036; 83605; 83735; 84100; 84157; 84484; 84560; 85025; 85610; 85730; 86706; 87070; 87081; 87273; 87274; 87340; 87529; 89051; 90935; 92526; 92610; 93005; 93931; 93971; 95819; 97110; 97116; 97161; 97164; 97530; J0133; J0360; J0456; J0692; J0696; J1644; J1815; J3370; J7040; J7042; Q5105; Q9967

== ENCOUNTER 2019-06-06 09:04 | Inpatient (IN) | payer MEDICARE, OTHER ==
[~2019-06-06] VITALS: Ht 162.6 cm; Wt 78.6 kg
[~2019-06-06 09:04] MED LIST changes: -ACYC800T5 PO; -BENZ-6 PO; +CALC667T2 PO; +CLOP75TA27 PO; +PANT40TA4 PO; +SODI30SP2 NS
[2019-06-06] MEDS ORDERED: OXYMETAZOLINE 0.05% NASAL SPRAY (15 ML) NASAL ONE (10:00)
[2019-06-06] MEDS ORDERED: ONDANSETRON 4 MG INJ IV PRN ×2 (14:00→17:00)
[2019-06-06] MEDS: ACETAMINOPHEN 325 MG TAB PO PRN ×2 (14:30→19:47)
[2019-06-06] MEDS ORDERED: HYDROCODONE/APAP (5/325) TAB PO PRN (17:00)
[2019-06-06] MEDS ORDERED: ACETAMINOPHEN 325 MG TAB PO PRN (17:00)
[2019-06-06] MEDS: ACCU-CHEK XX SCH ×2 (17:30→20:37)
[2019-06-06 19:20] VITALS: Ht 162.6 cm; Wt 78.6 kg
[2019-06-06 19:46] VITALS: BP 163/76; PULSE 77; RESP 21
[2019-06-06] MEDS: GABAPENTIN 100 MG CAP PO SCH (20:36)
[2019-06-07 00:15] VITALS: BP 148/87; PULSE 77; RESP 19
[2019-06-07 04:00] VITALS: BP 135/73; PULSE 78; RESP 19
[2019-06-07] MEDS: PANTOPRAZOLE (EC) 40 MG TAB PO SCH (05:48)
[2019-06-07] MEDS: ACCU-CHEK XX SCH ×4 (07:00→21:00)
[2019-06-07 07:28] VITALS: BP 150/75; PULSE 103; RESP 18
[2019-06-07] MEDS: FOLIC ACID 1 MG TAB PO SCH (08:45)
[2019-06-07] MEDS: GABAPENTIN 100 MG CAP PO SCH ×2 (08:45→20:51)
[2019-06-07] MEDS: LINAGLIPTIN 5 MG TABLET PO SCH (08:45)
[2019-06-07] MEDS: MULTIVIT/CA CARB/B CMPLX/FA TAB PO SCH (08:46)
[2019-06-07] MEDS: ACETAMINOPHEN 325 MG TAB PO PRN (08:46)
[2019-06-07] MEDS ORDERED: METOPROLOL (XL) 50 MG TAB PO SCH (09:00)
[2019-06-07 11:14] VITALS: BP 126/65; PULSE 92; RESP 18
[2019-06-07] MEDS ORDERED: DESMOPRESSIN 20 MCG in SOD CHLORIDE 0.9% 50 ML IVPB ONE (12:00)
[2019-06-07 15:40] VITALS: BP 140/84; PULSE 100; RESP 18
[2019-06-07] MEDS ORDERED: DESMOPRESSIN 20 MCG in SOD CHLORIDE 0.9% 50 ML SC ONE (17:00)
[2019-06-07] MEDS ORDERED: NA POLYST SULFON 15 GM/60 ML BTL PO ONE (17:30)
[2019-06-07] MEDS ORDERED: LIDOCAINE 4% SOLUTION 50 ML BTL MM ONE (18:00)
[2019-06-07] MEDS ORDERED: OXYMETAZOLINE 0.05% NASAL SPRAY (15 ML) NASAL ONE (18:00)
[2019-06-07] MEDS ORDERED: DESMOPRESSIN 4 MCG INJ IV SCH (19:00)
[2019-06-07 20:01] VITALS: BP 147/84; PULSE 91; RESP 18
[2019-06-07] MEDS: METOPROLOL (XL) 50 MG TAB PO SCH (20:51)
[2019-06-08] VITALS (19 sets, daily range): BP systolic 110–140; BP diastolic 56–78; PULSE 70–95; RESP 18–20
[2019-06-08] MEDS: PANTOPRAZOLE (EC) 40 MG TAB PO SCH (05:51)
[2019-06-08] MEDS: ACCU-CHEK XX SCH ×2 (07:00→11:30)
[2019-06-08] MEDS: GABAPENTIN 100 MG CAP PO SCH (08:05)
[2019-06-08] MEDS: FOLIC ACID 1 MG TAB PO SCH (08:05)
[2019-06-08] MEDS: MULTIVIT/CA CARB/B CMPLX/FA TAB PO SCH (08:05)
[2019-06-08] MEDS: LINAGLIPTIN 5 MG TABLET PO SCH (08:06)
[2019-06-08] MEDS: METOPROLOL (XL) 50 MG TAB PO SCH (09:00)
[2019-06-08] MEDS ORDERED: CALCIUM ACETATE 667 MG CAP PO SCH (12:00)
== END 2019-06-08 17:00 | disposition home or self-care (01) | DRG 813 ==
LOC: FTE 09:04 → 6WM 13:58
PROVIDERS: ADMIT Internal Medicine; ATTEND Internal Medicine
PROC: 2Y41X5Z Packing of Nasal Region using Packing Material (ICD-10-PCS; 2019-06-06)
PROC: 093K7ZZ Control Bleeding in Nasal Mucosa and Soft Tissue, Via Natural or Artificial Opening (ICD-10-PCS; principal; 2019-06-07)
PROC: 09JY8ZZ Inspection of Sinus, Via Natural or Artificial Opening Endoscopic (ICD-10-PCS; 2019-06-07)
PROC: 09JK8ZZ Inspection of Nasal Mucosa and Soft Tissue, Via Natural or Artificial Opening Endoscopic (ICD-10-PCS; 2019-06-07)
PROC: 5A1D70Z Performance of Urinary Filtration, Intermittent, Less than 6 Hours Per Day (ICD-10-PCS; 2019-06-08)
DX: D69.1 Qualitative platelet defects (principal); N18.6 End stage renal disease; I13.2 Hypertensive heart and chronic kidney disease with heart failure and with stage 5 chronic kidney disease, or end stage renal disease; R04.0 Epistaxis; J34.89 Other specified disorders of nose and nasal sinuses; E11.22 Type 2 diabetes mellitus with diabetic chronic kidney disease; I50.9 Heart failure, unspecified; E78.5 Hyperlipidemia, unspecified; I25.10 Atherosclerotic heart disease of native coronary artery without angina pectoris; Z99.2 Dependence on renal dialysis; Z79.02 Long term (current) use of antithrombotics/antiplatelets; Z95.0 Presence of cardiac pacemaker; Z87.01 Personal history of pneumonia (recurrent)
CPT/HCPCS: 36415; 80048; 82962; 85025; 85384; 85576; 85610; 85730; 87081; 87340; 90935; J2405; J2597